=== PATIENT | female | born 1950 | race Caucasian/White ===

== ENCOUNTER 2023-05-09 06:18 | Emergency (ER) | payer MEDICARE, BC, SELFPAY ==
--- NOTE | ~2023-05-09 | CT_ITS ---
EXAMINATION: CT brain wo con INDICATION: Head injury COMPARISON: None TECHNIQUE: Standard unenhanced head CT. The dose-length product (DLP) was 605.33 mGy-cm. The mA was a djusted according to patient size. Iterative reconstruction technique was employed. FINDINGS: No acute intraparenchymal hemorrhage. No evidence of mass lesion. No evidence of acute infa rction. 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 There is mild periventricular and subcorti kd hypodensity probably related to small vessel ischemic disease. There is mild prominence of the campbell lci and ventricles related to cerebral atrophy. Intracranial calcified cerebral atherosclerosis is no fernando. No extra-axial collections. No mass effect or midline shift. There is left periorbital soft tiss ue swelling. The visualized sinuses and mastoid air cells are well aerated. IMPRESSION: 1. No acute intracranial abnormality. 2. Age related findings. Reviewed, dictated and finalized at location F.
--- NOTE | ~2023-05-09 | CT_ITS ---
EXAMINATION: CT facial bones wo con DATE: 05/09/2023 07:45 INDICATION: Facial pain and swelling after fall TECHNIQUE: Computed tomography (CT) of the facial bones and maxillofacial region was performed withou t intravenous contrast. The dose-length product (DLP) was 602.12 mGy-cm. Automated exposure control a nd iterative reconstruction technique were employed. COMPARISON: None. FINDINGS: There is left periorbital soft tissue swelling. There is also right lateral facial soft tis raeann swelling overlying the maxilla and mandible. No facial fracture is identified. The visualized por tions of the cervical spine demonstrate mild spondylosis. IMPRESSION: 1. Left periorbital and right facial soft tissue swelling without acute osseous abnormality. Reviewed, dictated and finalized at location F.
--- NOTE | ~2023-05-09 | XR_ITS ---
EXAMINATION: XR wrist RT min 3V INDICATION: Right wrist pain, initial encounter TECHNIQUE: Four views of the right wrist are obtained. COMPARISON: None available FINDINGS: There is an acute, traumatic, closed, transverse fracture of the distal radius. The fractur e appears to be extra-articular. An ulnar styloid avulsion is also noted. No additional fracture is i dentified. There is soft tissue swelling of the wrist. IMPRESSION: 1. Acute fracture of the distal radius. 2. Ulnar styloid avulsion. Reviewed, dictated and finalized at location F.
[2023-05-09 06:23] VITALS: BP 139/78; PULSE 92; RESP 22; TEMP 36.8; O2SAT 93
[2023-05-09 07:16] VITALS: BP 165/91; PULSE 94; RESP 18; O2SAT 95
--- NOTE | 2023-05-09 07:36 | PC.NURSE ---
pt to xray via stretcher at this time
--- NOTE | 2023-05-09 07:58 | ED.FALL ---
HPI - Fall General Chief Complaint: Fall Stated Complaint: fall, R wrist pain Time Seen by Provider: 05/09/23 07:05 Source: patient and RN notes reviewed Mode of arrival: ambulatory Limitations: no limitations History of Present Illness HPI Narrative: This is a 72 year old female right hand dominant who presents for evaluation of right wrist pain s/p fall. Patient states she was trying to get back into bed using her walker this morning. She reports the wheels on the walk slipped causing her to fall. She hit right side of face on her walker chair. She notices mild pain and right facial swelling. She denies LOC. She also reports right wrist pain and swelling since her fall. she has not taken anything for pain. She denies denies taking anticoagulation. She denies any other complaints or injuries. Related Data Allergies Allergy/AdvReac Type Severity Reaction Status Date / Time No Known Allergies Allergy Mild Verified 05/09/23 07:16 Review of Systems Constitutional: Constitutional: Denies weakness Cardiovascular: Cardiovascular: Denies syncope, Denies rapid heart rate, Denies irregular heart rhythm, Denies leg edema and Denies dyspnea Respiratory: Respiratory: Denies chest congestion, Denies hemoptysis, Denies excessive phlegm production and Denies dyspnea Gastrointestinal: Gastrointestinal: Denies abdominal pain, Denies hematochezia, Denies diarrhea and Denies vomiting Genitourinary: Genitourinary: Denies hematuria and Denies dysuria Musculoskeletal: Musculoskeletal: Reports arthralgias, Reports joint swelling, Denies loss of height and Denies muscle weakness Neurologic: Denies syncope, Denies focal weakness and Denies weakness PMFSH Past Medical History Medical History (Updated 05/09/23 @ 08:33 by Emerald Holguin MD) Emphysema/COPD Hyperlipidemia Surgical History Surgical History (Updated 05/09/23 @ 08:29 by Emerald Holguin MD) H/O section Social History Social History (Updated 05/09/23 @ 08:29 by Emerald Holguin MD) Smoking status: Former smoker Exam Const: General: no acute distress and alert Nutritional Appearance: well nourished Orientation/consciousness: patient oriented x3 HENMT: Head: normal to inspection Mouth: Yes lip normal and Yes moist mucous membranes Throat: posterior oropharynx normal and uvula midline Other: right facial cheek swelling Eyes: Pupils: Equal, round and reactive pupils present EOM: EOMs intact bilaterally Neck: Neck: normal visual inspection and no lymphadenopathy Chest: Chest palpation & inspection: normal inspection of the chest Resp: Effort & Inspection: normal respiratory effort Auscultation: clear to auscultation bilaterally Cardio: Rate: regular rate Rhythm: regular rhythm Heart sounds: no murmurs Skin: Rashes: no rashes Wounds: no wounds Neuro: General: patient oriented x3, moves all extremities and CN's II-XI intact bilaterally Extrem: Other: right wrist swelling, TTP, focal area of bruising Psych: Mental Status: mental status grossly normal Affect: normal affect Attitude: cooperative Course Reevaluation(s) Reevaluation #1: I Discussed with patient that she was found to have radius fracture. I Discussed plan to place in OCL and refer to orthopedic surgery. I will also prescribe pain medication. She understands she will need to call tomorrow to make an appointment Date: 05/09/23 Time: 08:31 Vital Signs Vital signs: Vital Signs Temperature 98.2 F 05/09/23 06:23 Pulse Rate 92 05/09/23 06:23 Respiratory Rate 22 H 05/09/23 06:23 Blood Pressure 139/78 05/09/23 06:23 Pulse Oximetry 93 05/09/23 06:23 Oxygen Delivery Room Air 05/09/23 06:23 Temperature 98.2 F 05/09/23 06:23 Pulse Rate 90 05/09/23 08:56 Respiratory Rate 18 05/09/23 08:56 Blood Pressure 158/100 H 05/09/23 08:56 Pulse Oximetry 95 05/09/23 08:56 Oxygen Delivery Room Air 05/09/23 06:23 Procedures Orthop
[2023-05-09 08:56] VITALS: BP 158/100; PULSE 90; RESP 18; O2SAT 95
== END 2023-05-09 09:12 | disposition home or self-care (01) ==
PROVIDERS: Emergency Provider General Practice; PCP Nurse Practitioner Family
DX: S52.551A Other extraarticular fracture of lower end of right radius, initial encounter for closed fracture (principal); S52.611A Displaced fracture of right ulna styloid process, initial encounter for closed fracture; S00.83XA Contusion of other part of head, initial encounter; J43.9 Emphysema, unspecified; E78.5 Hyperlipidemia, unspecified; Z87.891 Personal history of nicotine dependence; W18.39XA Other fall on same level, initial encounter
CPT/HCPCS: 29125; 70450; 70486; 73110; 99284

== ENCOUNTER 2023-07-04 13:02 | Emergency (ER) | payer MEDICARE, BC, SELFPAY ==
--- NOTE | 2023-07-04 13:06 | ED.URI ---
HPI - URI/Sore Throat General Chief Complaint: Upper Respiratory Infection Stated Complaint: exposure to COVID,cough Time Seen by Provider: 07/04/23 13:05 Source: patient Mode of arrival: ambulatory Limitations: no limitations History of Present Illness HPI Narrative: Gaby is a 73-year-old female patient presenting to clinic today with complaints of a cough, fatigue, runny nose, and nasal congestion x4 days. She reports has been exposed to COVID. No fever or chills. Does have history of COPD. Does not report any increased shortness of breath or chest pain. MD elicited complaint: cough and nasal congestion Related Data Home Medications Medication Instructions Recorded Confirmed atorvastatin 10 mg tablet 10 mg PO DAILY 05/12/23 06/10/23 herbal drugs tablet PO 05/12/23 06/10/23 potassium chloride 10 mEq 10 meq PO DAILY 05/12/23 06/10/23 capsule,extended release albuterol sulfate 2.5 mg/3 mL 2.5 mg inhalation Q4H PRN 07/04/23 07/04/23 (0.083 %) solution for nebulization Shortness Of Breath Or Wheezing fluticasone fur. 100 mcg-umeclid inhalation 07/04/23 62.5 mcg-vilant 25 mcg inhalat.powder (Trelegy Ellipta) furosemide 40 mg tablet mg 07/04/23 loratadine 10 mg tablet mg 07/04/23 montelukast 10 mg tablet mg 07/04/23 Allergies Allergy/AdvReac Type Severity Reaction Status Date / Time No Known Allergies Allergy Mild Verified 07/04/23 13:13 Review of Systems Review of Systems: Pertinent positives per HPI. Patient denies any fever, chills, rash, headache, visual changes, dizziness, chest pain, palpitations, nausea, vomiting, diarrhea, constipation, abdominal pain, or any urinary issues. [facility] Past Medical History Medical History Colles' fracture of right radius (~05/09/23) Emphysema/COPD Hyperlipidemia Lung cancer (~05/2017) Surgical History Surgical History H/O section Social History Social History Smoking status: Former smoker Alcohol intake: never Substance use: never Substance use type: does not use Lack of Transportation: No Lack of Food: Never True Current Housing: I Have Housing Concerned About Future Housing: No Difficulty Paying Gas/Electric Bills: No Difficulty Paying for Meds: No Currently Unemployed: No Education: High School Diploma/GED Difficulty w/ Childcare or Family Care: No Comments At the time of my signature, I reviewed and agree with the nursing past medical, surgical, social, and family history. There is no relevant family history pertinent to the patient complaint. Exam Narrative: General: Well-developed, well nourished, in no apparent distress Head: Normocephalic, atraumatic Eyes: Pupils equally round and reactive to light bilaterally, EOM intact, sclera and conjunctive clear, no discharge, lids normal Ears: TMs intact and clear, ear canals clear, no drainage, grossly hearing normal. Nose: Nares patent, clear nasal discharge, no inflammation, no sinus tenderness. Mouth: Oral pharynx without lesions or masses, good dentition, MMM. Does Neck: Supple, trachea midline, no enlargement of anterior or posterior cervical nodes, no thyroid masses or goiter palpable. Cardio: Regular rate and rhythm, s1 and s2 normal, no murmur appreciated. Resp: Expiratory wheezing throughout lung, no rhonchi, rales, or rubs Course Course Emergency Course: Portions of this record may have been created with voice recognition software. Level of Care: Express Care Visit Vital Signs Vital signs: Vital signs reviewed MDM - URI/Sore Throat MDM Narrative Medical decision making narrative: At the time of visit patient is resting comfortably on the exam table. Patient is nontoxic appearing. COVID and influenza testing was performed. COVID testing was positive and
[2023-07-04 13:10] VITALS: BP 148/80; PULSE 96; RESP 24; TEMP 36.9; O2SAT 93
== END 2023-07-04 13:48 | disposition home or self-care (01) ==
PROVIDERS: Emergency Provider Nurse Practitioner Family; PCP Nurse Practitioner Family
DX: U07.1 COVID-19 (principal); Z87.891 Personal history of nicotine dependence; J44.9 Chronic obstructive pulmonary disease, unspecified; E78.5 Hyperlipidemia, unspecified; Z85.118 Personal history of other malignant neoplasm of bronchus and lung
CPT/HCPCS: 87426; 87804; 99213; C9803; G0463

== ENCOUNTER 2024-07-30 12:09 | Inpatient (IN) | payer MEDICARE, BC, SELFPAY ==
[2024-07-30] VITALS (62 sets, daily range): BP systolic 115–170; BP diastolic 67–123; PULSE 91–137; RESP 16–37; TEMP 36.3; O2SAT 92–100
--- NOTE | ~2024-07-30 | XR_ITS ---
Portable chest x-ray Comparison: 08/05/2024 Clinical History: Respiratory Findings: Endotracheal tube and NG tube and right-sided central venous line are in place. There is p robable central congestive change and vascular prominence of the hilar structures, unchanged. There i s left basilar atelectasis or pneumonia. Cardiomediastinal silhouette is stable. Bones and soft tiss ues are unremarkable. Impression: Left basilar atelectasis versus pneumonia. Stable prominent hilar structures. Stable support tubes. Reviewed, dictated and finalized at location M. LFISH SORTER Impression: Left basilar atelectasis versus pneumonia. Stable prominent hilar structures. Stable support tubes.
--- NOTE | ~2024-07-30 | XR_ITS ---
EXAMINATION: XR chest ET placement DATE: 07/31/2024 02:54 INDICATION: Intubation. TECHNIQUE: A single frontal view of the chest was obtained. COMPARISON: Chest CT 07/30/2024, chest single view 07/31/2024 FINDINGS: There is volume loss of right hemithorax. There are airspace opacities in the right perihil ar region and right upper lobe. There are airspace opacities in the lower lung zones. No pleural effu jess or pneumothorax. The heart size is normal. The endotracheal tube tip is 4.1 cm above the vera. The nasogastric tube tip is beyond the inferior margin of the radiograph, but at least to the stomac h. IMPRESSION: 1. Several airspace opacities in right perihilar region and right upper lobe, likely radiation pneumo nitis. 2. Stable airspace opacities in the lower lung zones, likely atelectasis. Reviewed, dictated and finalized at location A. OR DATA DEVELOPER IMPRESSION: 1. Several airspace opacities in right perihilar region and right upper lobe, l ikely radiation pneumonitis. 2. Stable airspace opacities in the lower lung zones, likely atelectasis.
--- NOTE | ~2024-07-30 | XR_ITS ---
Portable chest x-ray Comparison: 08/09/2024 Clinical History: Respiratory failure Findings: Endotracheal tube, NG tube, and right IJ line remain in place. Stable prominence of the hi lar regions, especially right side. Left basilar airspace disease unchanged. Cardiomediastinal silho uette is stable. Bones and soft tissues are unremarkable. Impression: No interval change. There is stable left basilar atelectasis or pneumonia. Stable prominence of the hilar regions. Correlate for pulmonary vascular structures versus lymphadeno niecy. Stable support tubes. Reviewed, dictated and finalized at location . RETE PIPE MAKER Impression: No interval change. There is stable left basilar atelectasis or pneumonia. Stable prominence of the hilar regions. Correlate for pulmonary vascular struct ures versus lymphadenopathy. Stable support tubes.
--- NOTE | ~2024-07-30 | XR_ITS ---
EXAMINATION: XR chest 1V portable DATE: 08/04/2024 06:24 INDICATION: Hypercapnic respiratory failure. TECHNIQUE: A single frontal view of the chest was obtained. COMPARISON: None. FINDINGS: There is volume loss of right hemithorax. There are airspace opacities in right perihilar r egion and right upper lung zone. There are mild airspace opacities in the lower lung zones. No pleura l effusion or pneumothorax. Cardiomegaly is noted. The endotracheal tube tip is 3.4 cm above the matrha na. The nasogastric tube tip is beyond the inferior margin of the radiograph, but at least to the sto mach. A right internal jugular central venous catheter is seen with tip in the proximal right atrium. IMPRESSION: 1. Stable airspace opacities in right perihilar region and right upper lobe, likely radiation pneumonitis. 2. Stable airspace opacities in the lower lung zones, consistent with atelectasis versus pneumonia. 3. Cardiomegaly. Reviewed, dictated and finalized at location A. ER AND TRIMMER IMPRESSION: 1. Stable airspace opacities in right perihilar region and right upper lobe, li aman radiation pneumonitis. 2. Stable airspace opacities in the lower lung zones, consistent with atelectas is versus pneumonia. 3. Cardiomegaly.
--- NOTE | ~2024-07-30 | XR_ITS ---
XR chest ET placement DATE: 07/30/2024 18:46 INDICATION: Intubation TECHNIQUE: Portable supine AP chest on 07/30/2024 at 1836 hours COMPARISON: 07/30/2024 CT chest 07/30/2024 portable AP chest FINDINGS: There is interval placement of an endotracheal tube, the distal tip is situated at the very proximal aspect of the right mainstem bronchus. Recommend withdrawing the ET tube 3 cm. NG tube in stomach. Right lung volume loss with rightward shift of heart mediastinum. There is infiltrate and/or atelectasis in the right upper and lower lung hernandez, particularly mediall y. There is prominent leg atelectasis or scarring in the left lower lung. Cardiomegaly. Pulmonary vascular congestion and pulmonary interstitial prominence suggests congestive changes. Aortic atherosclerosis. Osteopenia. IMPRESSION: 2 tip is situated at the origin of the right mainstem right; repositioning 3 cm is proxim ally is recommended Reviewed, dictated and finalized at Location A. Reviewed, dictated and finalized at location A. N DRIER IMPRESSION: 2 tip is situated at the origin of the right mainstem right; reposi tioning 3 cm is proximally is recommended
--- NOTE | ~2024-07-30 | US_ITS ---
EXAMINATION: US abdomen limited DATE: 08/05/2024 11:45 INDICATION: Elevated liver function tests. TECHNIQUE: Multiple grayscale and Doppler ultrasound images of the abdomen were obtained. COMPARISON: None FINDINGS: The pancreatic head and body are normal in appearance. The pancreatic tail is not visualized. Liver has normal echogenicity and contour, with a smooth surface. No liver lesion identified. No intrahepat ic biliary duct dilation suspected. Portal venous flow was seen in the hepatopetal, normal direction and has normal Doppler waveform. There are echogenic and shadowing gallstones in the dependent aspect of the otherwise normal-appearing gallbladder. Sonographic Dunne sign was unable to be assessed as patient is currently intubated and sedated. No gallbladder dilation, wall thickening or pericholecyst ic fluid to suggest acute cholecystitis. Common bile duct measures 4 mm diameter which is normal. Vis ualized proximal inferior vena cava is normal. Visualized portion of the right kidney demonstrates no rmal contour and echogenicity with no hydronephrosis. IMPRESSION: 1. Cholelithiasis within the otherwise normal-appearing gallbladder. Reviewed, dictated and finalized at location A. OVISUAL EQUIPMENT OPERATOR
--- NOTE | ~2024-07-30 | XR_ITS ---
CHEST RADIOGRAPH CLINICAL HISTORY: Central line insertion . COMPARISON: 08/02/2024 at 3:30 AM and dating back to 07/31/2024. TECHNIQUE: Single portable view of the chest. FINDINGS Interval placement of a right internal jugular central venous catheter with its tip projecting over t he superior right atrium. Endotracheal tube redemonstrated with its tip projecting approximately 3 cm above the base of the car dimitri. Orogastric tube extending below the left hemidiaphragm, presumably within stomach. The remainder of the cardiomediastinal silhouette is otherwise unremarkable. Persistent left basilar atelectasis. Redemonstration of right hilar and right upper lobe asymmetry, unchanged from prior. The remainder of the lungs are clear. IMPRESSION: Right internal jugular central venous catheter in good position and ready for immediate use. Otherwise stable radiographic evaluation of the chest, with redemonstration of supportive devices (in good radiographic position) and post treatment change within the right upper lobe and right hilum. Reviewed, dictated and finalized at location A. DENT CARE DIRECTOR IMPRESSION: Right internal jugular central venous catheter in good position and ready for i mmediate use. Otherwise stable radiographic evaluation of the chest, with redemonstration of supportive devices (in good radiographic position) and post treatment change wi thin the right upper lobe and right hilum.
--- NOTE | ~2024-07-30 | XR_ITS ---
XR chest ET placement DATE: 07/30/2024 20:38 INDICATION: Reposition ET tube TECHNIQUE: Portable AP chest on 07/30/2024 at 2037 hours COMPARISON: None FINDINGS: Tip of ET tube is 2.5 cm above vera in satisfactory position. NG tube in stomach. Right lung volume loss, prominent infiltrate, atelectasis or scarring along the right upper and lower lung. Prominent discoid atelectasis and suggestion of some infiltrate in the left lower lung. Cardiomegaly. No pneumothorax. Osteopenia. IMPRESSION: Repositioning of ET tube in satisfactory position Reviewed, dictated and finalized at Location A. Reviewed, dictated and finalized at location A. 400 DEVELOPER
--- NOTE | ~2024-07-30 | XR_ITS ---
XR abdomen gastric tube insert DATE: 07/30/2024 18:46 INDICATION: NG tube placement TECHNIQUE: Portable AP view on 07/30/2024 1837 hours COMPARISON: None FINDINGS: NG tube overlies the gastric antrum approximately. Bilateral renal excretion of contrast material. A Torres catheter is present within the evacuated urin lucio bladder. Nonspecific bowel gas pattern. IMPRESSION: NG tube is in the gastric antrum approximately Reviewed, dictated and finalized at Location A. Reviewed, dictated and finalized at location A. MACEUTICAL PLANT OPERATOR
--- NOTE | ~2024-07-30 | XR_ITS ---
EXAMINATION: XR chest 1V portable DATE: 08/01/2024 05:29 INDICATION: Hypercapnic respiratory failure. TECHNIQUE: A single frontal view of the chest was obtained. COMPARISON: Chest single view 07/31/2024 FINDINGS: There is volume loss of right hemithorax. There are airspace opacities in right perihilar r egion and right upper lung zone. There are mild airspace opacities in the lower lung zones. No pleura l effusion or pneumothorax. The heart size is normal. The endotracheal tube tip is 3.7 cm above the c jose. The nasogastric tube tip is beyond the inferior margin of the radiograph, but at least to the stomach. IMPRESSION: 1. Stable airspace opacities in right perihilar region and right upper lobe, likely radiation pneumon itis. 2. Stable mild airspace opacities in the lower lung zones, likely atelectasis. Reviewed, dictated and finalized at location A. PACKAGING IMPRESSION: 1. Stable airspace opacities in right perihilar region and right upper lobe, li aman radiation pneumonitis. 2. Stable mild airspace opacities in the lower lung zones, likely atelectasis.
--- NOTE | ~2024-07-30 | US_ITS ---
EXAMINATION: US venous doppler [facility] DATE: 08/07/2024 14:34 INDICATION: Fever. TECHNIQUE: Grayscale ultrasound images without and with compression and Doppler ultrasound images of the bilateral lower extremity veins were obtained. COMPARISON: Ultrasound 01/02/2009 FINDINGS: The visualized portions of right common femoral vein, profunda (deep) femoral vein, femoral vein, pop liteal vein, peroneal veins, posterior tibial veins, and greater saphenous vein outflow are patent. The visualized portions of left common femoral vein, profunda femoral vein, femoral vein, popliteal v ein, peroneal veins, posterior tibial veins, and greater saphenous vein outflow are patent. IMPRESSION: 1. No deep venous thrombosis. Reviewed, dictated and finalized at location A. HER
--- NOTE | ~2024-07-30 | XR_ITS ---
EXAMINATION: XR chest 1V portable DATE: 07/31/2024 05:58 INDICATION: Respiratory failure. TECHNIQUE: A single frontal view of the chest was obtained. COMPARISON: Chest single view at 2:48 AM FINDINGS: There is volume loss of right hemithorax. There are airspace opacities in right perihilar r egion and right upper lung zone. There are mild airspace opacities in the lower lung zones. No pleura l effusion or pneumothorax. The heart size is normal. The endotracheal tube tip is 3.1 cm above the c jose. The nasogastric tube tip is beyond the inferior margin of the radiograph, but at least to the stomach. IMPRESSION: 1. Stable airspace opacities in right perihilar region and right upper lobe, likely radiation pneumon itis. 2. Stable mild airspace opacities in the lower lung zones, likely atelectasis. Reviewed, dictated and finalized at location A. CHECKER IMPRESSION: 1. Stable airspace opacities in right perihilar region and right upper lobe, li aman radiation pneumonitis. 2. Stable mild airspace opacities in the lower lung zones, likely atelectasis.
--- NOTE | ~2024-07-30 | US_ITS ---
EXAMINATION: US venous doppler UE DATE: 08/04/2024 10:36 INDICATION: Upper limb swelling TECHNIQUE: Grayscale images without and with compression and Doppler images of the bilateral upper ex tremity veins were obtained. COMPARISON: None. FINDINGS: The right subclavian vein, axillary vein, brachial vein, basilic vein, cephalic vein, radial vein, an d ulnar vein are patent. The left internal jugular vein, subclavian vein, axillary vein, brachial vein, basilic vein, cephalic vein, radial vein, and ulnar vein are patent. IMPRESSION: 1. Patent bilateral upper extremity veins. No evidence of venous thrombosis. Reviewed, dictated and finalized at location B. L ROOM DENTAL TECHNICIAN
--- NOTE | ~2024-07-30 | CT_ITS ---
EXAMINATION: CTA chest PE protocol DATE: 07/30/2024 15:40 INDICATION: Dyspnea TECHNIQUE: Computed tomography angiography (CTA) of the chest was performed with 100 mL Omnipaque-350 intravenous contrast timed to evaluate the pulmonary arteries. Coronal maximum intensity projection 3D-reconstructions were created by the technologist. Automated exposure control and iterative reconst ruction technique were employed. Exam dose: 887.54 mGy-cm total exam DLP. COMPARISON: 04/28/2017 CT chest FINDINGS: There is diagnostic contrast enhancement of the pulmonary arteries and no evidence of pulmo nary embolism. There is prominent right lung volume loss including right upper lobe atelectasis, minimal right upper lobe vascularity, prominent right lower lobe atelectasis. There is limited expansion of the right janet ng. There is prominent narrowing of the right upper lobe bronchus, virtual occlusion of the right int ermediate bronchus. There is mild right pleural effusion. Cardiomegaly. No pericardial effusion. There is thoracic aortic calcification and mild thoracic aortic aneurysm, measuring up to approximate ly 3.3 cm diameter in the posterior aortic arch area. Scattered mild pulmonary infiltrates and/atelectasis involving left upper lobe and to a greater exten t left lower lobe. Normal morphology of the adrenal glands. Included upper abdominal structures are unremarkable. No suspicious osteolytic or osteoblastic lesions are noted. IMPRESSION: Right lung atelectasis including particularly upper and lower lobes; which may be due to malignant or radiation stricture of the right bronchial airways. Consider PET/CT correlation No pulmonary embolism Reviewed, dictated and finalized at Location A. Reviewed, dictated and finalized at location A. E HALL HOST/HOSTESS IMPRESSION: Right lung atelectasis including particularly upper and lower lobe s; which may be due to malignant or radiation stricture of the right bronchial airways. Consider PET/CT correlation No pulmonary embolism
--- NOTE | ~2024-07-30 | XR_ITS ---
EXAMINATION: XR chest 1V portable DATE: 07/30/2024 12:41 INDICATION: Dyspnea. TECHNIQUE: A single frontal view of the chest was obtained. COMPARISON: Chest 2 views 01/29/2017, chest CT 04/28/17 FINDINGS: There is volume loss of right hemithorax. There is a mass at the right hilum. There are air space opacities in right upper lobe. There are airspace opacities in left mid and lower lung zones. N o pleural effusion or pneumothorax. The heart size is normal. IMPRESSION: 1. Mass at the right hilum, consistent with malignancy and/or treatment changes. 2. Volume loss of right hemithorax with airspace opacities in right upper lobe, likely atelectasis. P neumonia cannot be excluded. 3. Airspace opacities in left mid and lower lung zones, consistent with atelectasis versus pneumonia. Reviewed, dictated and finalized at location A. HAND TOOL IMPRESSION: 1. Mass at the right hilum, consistent with malignancy and/or treatment changes . 2. Volume loss of right hemithorax with airspace opacities in right upper lobe, likely atelectasis. Pneumonia cannot be excluded. 3. Airspace opacities in left mid and lower lung zones, consistent with atelect asis versus pneumonia.
--- NOTE | ~2024-07-30 | XR_ITS ---
EXAMINATION: XR chest 1V portable DATE: 08/09/2024 06:23 INDICATION: Respiratory failure. Pneumonia. TECHNIQUE: frontal view of the chest was obtained. COMPARISON: Chest radiograph dated 08/08/[address] dated 08/04/2024 FINDINGS: Endotracheal tube tip 3.4 cm above the vera. Right internal jugular central venous catheter with di stal tip at the superior cavoatrial junction. Nasogastric tube extends below the left hemidiaphragm with distal tip collimated off the study. Volume loss in the right hemithorax with right perihilar and paramediastinal opacities consistent wit h atelectasis, bronchiectasis and likely radiation fibrosis based on prior CT. Additional opacities a t the bilateral lower lung zones which could represent atelectasis or pneumonia. Small right pleural effusion. No pneumothorax or left-sided pleural effusion. Mild cardiomegaly. IMPRESSION: 1. Opacities at the bilateral lower lung zones which could represent atelectasis or pneumonia along w ith a small right pleural effusion. 2. Volume loss in right hemithorax with paramediastinal/perihilar opacities consistent with radiation fibrosis and atelectasis likely for treatment of prior lung cancer. Reviewed, dictated and finalized at location A. RULER OPERATOR IMPRESSION: 1. Opacities at the bilateral lower lung zones which could represent atelectasi s or pneumonia along with a small right pleural effusion. 2. Volume loss in right hemithorax with paramediastinal/perihilar opacities con sistent with radiation fibrosis and atelectasis likely for treatment of prior l osei cancer.
--- NOTE | ~2024-07-30 | XR_ITS ---
EXAMINATION: XR chest 1V portable DATE: 08/02/2024 03:33 INDICATION: Hypercapnic respiratory failure. TECHNIQUE: A single frontal view of the chest was obtained. COMPARISON: Chest single view 08/01/2024 FINDINGS: There is volume loss of right hemithorax. There are airspace opacities in right perihilar r egion and right upper lung zone. There are mild airspace opacities in the lower lung zones. No pleura l effusion or pneumothorax. The heart size is normal. The endotracheal tube tip is 3.6 cm above the c jose. The nasogastric tube tip is beyond the inferior margin of the radiograph, but at least to the stomach. IMPRESSION: 1. Stable airspace opacities in right perihilar region and right upper lobe, likely radiation pneumon itis. 2. Stable mild airspace opacities in the lower lung zones, likely atelectasis. Reviewed, dictated and finalized at location A. ER OPERATOR AUTOMATIC IMPRESSION: 1. Stable airspace opacities in right perihilar region and right upper lobe, li aman radiation pneumonitis. 2. Stable mild airspace opacities in the lower lung zones, likely atelectasis.
--- NOTE | ~2024-07-30 | XR_ITS ---
EXAMINATION: XR chest 1V portable DATE: 08/05/2024 05:40 INDICATION: Hypercapnic respiratory failure TECHNIQUE: frontal view of the chest was obtained. COMPARISON: Chest radiograph and CT dated 08/04/2024 FINDINGS: Endotracheal tube tip 1.2 cm above the vera. Nasogastric tube extends below the left hemidiaphragm with distal tip collimated off the study. Right internal jugular central venous catheter with distal tip at the high right atrium. Unchanged small right pleural effusion and opacities in the bilateral lower lung zones which could re present atelectasis or pneumonia. Perihilar and paramediastinal opacities in the right mid and upper lung zones corresponding to radiation fibrosis. No pneumothorax or left-sided pleural effusion Mild c ardiomegaly. IMPRESSION: 1. Persistent right parahilar and right upper lobe paramediastinal opacities consistent with radiatio n fibrosis. 2. Unchanged small right pleural effusion with bibasilar opacities which could represent atelectasis or pneumonia. 2. Cardiomegaly. Reviewed, dictated and finalized at location A. ENDOSCOPY IMPRESSION: 1. Persistent right parahilar and right upper lobe paramediastinal opacities co nsistent with radiation fibrosis. 2. Unchanged small right pleural effusion with bibasilar opacities which could represent atelectasis or pneumonia. 2. Cardiomegaly.
--- NOTE | ~2024-07-30 | XR_ITS ---
EXAMINATION: XR abdomen/kub 1V DATE: 07/30/2024 22:58 INDICATION: Abdominal distention. TECHNIQUE: A supine view of the abdomen on 2 radiographs was obtained. COMPARISON: Chest CT 07/30/2024 FINDINGS: There are no dilated loops of bowel. There is a small volume of stool in the colon. The olman ogastric tube tip is in the stomach. IMPRESSION: 1. Nonobstructive bowel gas pattern. Reviewed, dictated and finalized at location A. SAW OPERATOR HELPER
--- NOTE | ~2024-07-30 | CT_ITS ---
EXAMINATION:CT diagnostic chest wo con DATE: 08/04/2024 11:38 INDICATION: Right lung lower lobe collapse. TECHNIQUE: Computed tomography (CT) of the chest was performed without intravenous contrast. Automate d exposure control and iterative reconstruction technique were employed. The dose-length product (DLP ) was 694.67 mGy-cm. COMPARISON: Chest CT 07/30/2024, PET/CT 05/11/2017 FINDINGS: There is mild emphysema. There is bilateral atelectasis with a dependent predominance. Ther e are airspace opacities in right upper lobe with volume loss and varicose bronchiectasis. There is c omplete collapse of right middle lobe. Tracheobronchomalacia is noted. There are mild groundglass opa cities in the lower lobes. There are small pleural effusions. Cardiomegaly is noted. There are grewal ry artery calcifications. No pericardial effusion. The central pulmonary arteries are enlarged, consi stent with pulmonary arterial hypertension. The nasogastric tube tip is beyond the inferior margin of the radiograph, but at least to the stomach. The endotracheal tube tip is in the trachea above the c jose. There is mild thoracic spondylosis. IMPRESSION: 1. Mild groundglass opacities in the lower lobes, consistent with pneumonia. 2. Airspace opacities in right upper lobe with volume loss and varicose bronchiectasis, likely radiat ion pneumonitis. Persistent complete collapse of right middle lobe. 3. Tracheobronchomalacia. 4. Small pleural effusions. 5. Mild emphysema. Reviewed, dictated and finalized at location A. ER OPERATOR IMPRESSION: 1. Mild groundglass opacities in the lower lobes, consistent with pneumonia. 2. Airspace opacities in right upper lobe with volume loss and varicose bronchi ectasis, likely radiation pneumonitis. Persistent complete collapse of right mi ddle lobe. 3. Tracheobronchomalacia. 4. Small pleural effusions. 5. Mild emphysema.
--- NOTE | ~2024-07-30 | XR_ITS ---
EXAMINATION: XR chest 1V portable Exam Date/Time: 07/31/2024 22:30 BILL CLERK HISTORY: High Peak Pressure, check tube placement Comparison: Same date at 5:20 AM. RESULT: Lines, tubes, and devices: Subdiaphragmatic NG tube. Endotracheal tube terminating 3.2 cm above the vera. Lungs and pleura: Right hemithorax volume loss. Stable right upper lobe and right perihilar opacities . Streaky opacities in the left lower lung. Right hemidiaphragm tenting Cardiomediastinal silhouette: Stable. Other: No acute osseous or upper abdominal finding. IMPRESSION: Endotracheal tube remains in stable position. Stable pulmonary opacities. Reviewed, dictated and finalized at location K. CLERK
--- NOTE | ~2024-07-30 | XR_ITS ---
EXAMINATION: XR chest 1V portable DATE: 08/03/2024 06:13 INDICATION: Hypercapnic respiratory failure. TECHNIQUE: A single frontal view of the chest was obtained. COMPARISON: Chest single view 08/02/2024 FINDINGS: There is volume loss of right hemithorax. There are airspace opacities in right perihilar r egion and right upper lung zone. There are mild airspace opacities in the lower lung zones. No pleura l effusion or pneumothorax. Cardiomegaly is noted. The endotracheal tube tip is 4.3 cm above the martha na. The nasogastric tube tip is beyond the inferior margin of the radiograph, but at least to the sto mach. A right internal jugular central venous catheter is seen with tip in the proximal right atrium. IMPRESSION: 1. Stable airspace opacities in right perihilar region and right upper lobe, likely radiation pneumon itis. 2. Airspace opacities in the lower lung zones with worsening on the left, consistent with atelectasis versus pneumonia. 3. Cardiomegaly. Reviewed, dictated and finalized at location A. TRUCTION EQUIPMENT OVERHAULER IMPRESSION: 1. Stable airspace opacities in right perihilar region and right upper lobe, li aman radiation pneumonitis. 2. Airspace opacities in the lower lung zones with worsening on the left, consi stent with atelectasis versus pneumonia. 3. Cardiomegaly.
--- NOTE | 2024-07-30 12:11 | ECG_ITS ---
Test Date: 2024-07-30 12:25:32 Measurements Intervals [place] Rate: 128 P: 52 TX: 141 QRS: -32 QRSD: 136 T: 53 QT: 399 QTc: 583 Interpretive Statements SINUS TACHYCARDIA or atrial flutter WITH OCCASIONAL VENTRICULAR PREMATURE COMPLEXES INDETERMINATE AXIS RIGHT BUNDLE BRANCH BLOCK [120+ ms QRS DURATION, UPRIGHT V1, 40+ ms S IN I/aVL/V4/V5/V6] MODERATE T-WAVE ABNORMALITY, CONSIDER ANTEROLATERAL ISCHEMIA [-0.1+ mV T WAVE IN V3-V6] MODERATE T-WAVE ABNORMALITY, CONSIDER INFERIOR ISCHEMIA [-0.1+ mV T WAVE IN II/aVF] No previous ECG available for comparison Electronically Signed On 07-30-2024 13:11:30 [facility] CAREGIVER by Rogers Shepherd M.D.
[2024-07-30] MEDS: IPRATROPIUM BR 0.02% INH SOLN 0.5 MG/2.5 ML VIAL 1 MG INHALATION (12:15)
[2024-07-30] MEDS: ALBUTEROL SULFATE NEB 2.5 MG/3 ML INH 10 MG INHALATION (12:15)
[2024-07-30] MEDS: MAGNESIUM SULF 2 GM/WATER 50ML 2 GM/50 ML BAG IVPB (12:20)
[2024-07-30 12:21] LABS: Alveolar/Arterial O2 Gradient 535.9 mmHg; Base Excess ABG 0.7 mEq/l (+/-2.0); Carboxyhemoglobin 1.1 % THb (0-2.0); Fractional Inspired Oxygen 100 %; HCO3 ABG 31.1 mEq/l (22.0-26.0); Methemoglobin ABG 0.3 %THb (0-1.5); Oxyhemoglobin 95.2 % THb (90.0-100.0); PO2 ABG 99.2 mmHg (80.0-100.0); PO2 FiO2 Ratio Arterial Blood 0.99 %; Reduced Hemoglobin 3.4 %THb (0-5.0); Total Hemoglobin 15.6 g/dL (12.0-18.0)
[2024-07-30 12:23] LABS: Device BIPAP; Expiratory Pressure 6 cmH2O; Inspiratory Pressure 14 cmH2O; Modified Allen's Test Pass; PCO2 ABG 77.9 mmHg (35.0-45.0); Site Drawn RIGHT RADIAL; pH ABG 7.219 (7.350-7.450)
[2024-07-30] MEDS: EPINEPHrine HCL INJ 1 MG/ML AMPUL 0.3 MG IM (12:24)
[2024-07-30] MEDS: LACTATED RINGERS 1,000 ML 999 ML IV CONT (12:28)
[2024-07-30 12:36] LABS: Hemoglobin 14.7 g/dL (12.0-15.0); Mean Corpuscular Hemoglobin 31.1 pg (26-34); Mean Corpuscular Volume 97.5 fl (80-100); Mean Platelet Volume 10.6 fl (7.4-10.4); Platelet Count Result 338 k/mm3 (150-375); Red Blood Count 4.72 M/mm3 (4.2-5.4); Red Cell Distribution Width 13.3 % (11.5-14.5); White Blood Count 15.5 K/mm3 (4.5-10.0)
--- NOTE | 2024-07-30 12:38 | ED.SOB ---
HPI - SOB/Dyspnea General Chief Complaint: Shortness of Breath/Dyspnea Stated Complaint: dyspnea Time Seen by Provider: 07/30/24 12:18 History of Present Illness HPI Narrative: 74-year-old female past medical history including hyperlipidemia and COPD. Patient presents to the emergency department in severe respiratory depression. EMS was called to the household work family member noted that patient was having worsening difficulty breathing over last few days. She was found to be 44% on room air with good waveform, blue and cyanotic in the face but still awake and mentating. They placed her on CPAP and transported to the hospital. She was brought back in room 11 as a medical resuscitation for severe respiratory distress this time. Patient is awake but in distress, dyspneic and unable to provide additional information, does follow commands and seems to know what is going on. She has very diminished air entry bilaterally with scant wheezing, near silent chest. RT called to bedside. Related Data Home Medications ?Medication ?Instructions ?Recorded ?Confirmed ?Last Taken ?Type atorvastatin 10 mg tablet 10 mg PO DAILY 05/12/23 07/30/24 Unknown History herbal drugs tablet PO 05/12/23 07/09/23 Unknown History potassium chloride 10 mEq 10 meq PO DAILY 05/12/23 07/30/24 Unknown History capsule,extended release albuterol sulfate 2.5 mg/3 mL 2.5 mg inhalation Q4H PRN 07/04/23 07/30/24 Unknown History (0.083 %) solution for nebulization Shortness Of Breath Or Wheezing fluticasone fur. 100 mcg-umeclid inhalation 07/04/23 07/09/23 Unknown History 62.5 mcg-vilant 25 mcg inhalat.powder (Trelegy Ellipta) furosemide 40 mg tablet mg 07/04/23 07/09/23 Unknown History loratadine 10 mg tablet mg 07/04/23 07/09/23 Unknown History montelukast 10 mg tablet mg 07/04/23 07/09/23 Unknown History Allergies Allergy/AdvReac Type Severity Reaction Status Date / Time No Known Allergies Allergy Mild Verified 07/30/24 12:30 Review of Systems Review of Systems: As reviewed above in HPI [facility] Past Medical History Medical History Colles' fracture of right radius (~05/09/23) Lung cancer (~05/2017) Emphysema/COPD Hyperlipidemia Surgical History Surgical History H/O section Social History Social History Smoking status: Former smoker Alcohol intake: never Substance use: never Substance use type: does not use Lack of Transportation: No Lack of Food: Never True Current Housing: I Have Housing Concerned About Future Housing: No Difficulty Paying Gas/Electric Bills: No Difficulty Paying for Meds: No Currently Unemployed: No Education: High School Diploma/GED Difficulty w/ Childcare or Family Care: No Exam Narrative: GENERAL: Severe respiratory distress, awake but very dyspneic, tachypneic HEAD: [Normocephalic, atraumatic.] EYES: [PERRLA and EOMI.] ENT: Nares clear, no rhinorrhea or epistaxis. Mucous membranes dry. NECK: Supple. CHEST: Sign and chest, very diminished air entry, scan wheezes are appreciated, tachypnea with accessory muscle use HEART: Tachycardic rate with regular rhythm. No murmur heard. [Normal peripheral pulses.] ABDOMEN: [Soft, nondistended], [nontender], [No rigidity or guarding] EXTREMITIES: Normal range of motion. 1+ edema SKIN: Warm, dry, no rash. NEURO: [No focal deficits]. Is able to nod yes or no and appears awake and able to answer questions albeit with 1 word dyspnea, no focal findings overly. Course Vital Signs Vital signs: Vital Signs Pulse Rate 137 H 07/30/24 12:10 Respiratory Rate 37 H 07/30/24 12:10 Pulse Oximetry 95 07/30/24 12:10 Oxygen Delivery BiPAP 07/30/24 12:10 Temperature 36.3 C L 07/30/24 12:13 Pulse Rate 105 H 07/30/24 21:20 Respiratory Rate 16 07/30/24 21:20 Blood Pressure 162/120 H 07/30/24 20:37 Pulse Oximetry 96 07/30/24 20:37 Oxygen Delivery Mechanical Ventilation 07/30/24 20:51 Fraction of Inspired Oxygen 50 07/30/24 20:51 Procedures Intubation Intubation #1: Intubation Date: 07/30/24 Intubation Time: 19:27 Time out performed: Yes sedative: Etomidate Mg Given: 30 paralytic: Rocuronium Mg Given: 100 Laryngoscope: fiber optic video scope Tube Size (cm): 8.0 Method of Intubation: orotracheal Number of Attempts: 1 Tube Secured Depth (cm): 24 Tube Secured Location: lips Tube Placement Confirmation: visualized tube passing through cords, equal breath sounds bilaterally, no breath sounds over epigastrium and confirmation by capnometry Patient Tolerated Procedure: well and no complications Intubation Complications: none MDM - SOB/Dyspnea MDM Narrative Medical decision making narrative: 74-year-old female with history of COPD and hyperlipidemia presenting in severe respiratory distress. She was found at 44% on room air and cyanotic in the face. She is awake, placed on CPAP by EMS and transition to BiPAP therapy upon arrival to the emergency department. RT was called to bedside for assistance, she was immediately given a intramuscular dose of epinephrine for bronchodilation 0.3 mg. Continuous albuterol and Atrovent were ordered, lung auscultation was severe diminishment in all lung hernandez, tidal volumes in the low 300s on the BiPAP with no air leak. BiPAP settings of 14/6 and 20 rate. Patient is awake but appears in severe distress, is afebrile, blood pressure within range, pulse within the 120s to 130s and tachypnea in the 30s to 40s. Considerations presently are for severe hypoxemic and hypercarbic respiratory failure likely secondary to COPD but other underlying process such as pneumonia, heart failure not excluded. Very unlikely to be ACS but cardiac workup was also initiated with EKGs, chest x-rays, troponins. She was given nebulized albuterol and ipratropium to her BiPAP mask, magnesium sulfate IV, started on antibiotics including Rocephin and doxycycline for COPD exacerbation. ABG obtained which shows critical acidosis with 7.2 pH, pCO2 of 78, bicarb of 31 indicative of acute on chronic hypercapnic respiratory failure without full compensation. Will trial BiPAP therapy and assess need for intubation shortly. Patient was reassessed frequently and had initial improvement on the BiPAP therapy, no longer is tachypneic and breathing were covering the 20s to 30s, pulse came down to the 105, blood pressure sustained in the 160s. Saturating 95% repeat VBG showed some slight improvement with her acid-base status including improvement her pH and her CO2 came down slightly. Making good headway, currently on continuous albuterol no tremor him, given steroids and magnesium. Placed on antibiotics for COPD and potential pneumonia. Workup revealed a leukocytosis of 15.5, no anemia. Chemistry panel with high bicarbonate but no electrolyte derangements, elevated BUN and normal creatinine. Likely fluid down, on fluids presently. ALT and AST an alk-phos slightly elevated, troponin slightly elevated as well as BNP. Raises suspicion for potential congestive process such as heart failure or right heart strain, she does have high risk for cardiac and vascular disease and considerations for pulmonary embolism higher now. Patient is doing better on the BiPAP therapy and I believe can safely go to CT for CT angiography with PE protocol. This was ordered and interpreted by radiology and myself as negative with no PE. There is right lung base atelectasis and upper lobe atelectasis likely secondary from her previous radiation therapy. She had a previous lung cancer that required surgery and radiation therapy. Family is aware of this and this and likely not a new finding but we have no previous CT imaging to compare to here in the ED. Patient was re-evaluated multiple times and initially she had improvement in the BiPAP therapy however she started complaining that she was getting tired and did have several episodes where she was falling asleep and slumping over on the BiPAP causing airway obstruction requiring frequent repositioning. I called and spoke to the mid-level provider covering the hospitalist group at this time and she recommended getting a repeat VBG and seeing if we need to intubate her if there is worsening respiratory status and tiring on the BiPAP. I did concur and we ordered a VBG which shows worsening on acid-base status at this time with rising CO2 despite BiPAP therapy on maximum support without invasive ventilation. I spoke to the religious ritual slaughterer Dr. Gresham over the phone and made them aware of patient's presentation and need for ICU with potential impending intubation. I had discussions with the patient's family and patient at bedside regarding next steps and given that she is tiring out on the BiPAP and will likely not have significant improvement without aggressive therapies patient and family were okay with intubation at this time and patient is a full code. They states she has been intubated before for similar circumstances. Controlled intubations setting with respiratory therapy called to bedside, medications drawn and intubation with a glide scope with 1st pass success done at bedside without difficulty. Patient tolerated the intubation well, initial chest x-ray shows right mainstem intubation, pulled back about 3 cm with appropriate position of the ET tube above the vera now. Patient is stable for transport to the ICU at this time. I discussed the case with the religious ritual slaughterer and the hospitalist over the phone and made them aware patient's presence and ICU admission at this time. Differential Diagnosis Differential diagnosis: Likely acute exacerbation of chronic obstructive airways disease, congestive heart failure, community acquired pneumonia, asthma with exacerbation, pulmonary embolism and other Medical Records Attestation: I reviewed the patient's medical records. Lab Data Attestation: I reviewed the patient's lab results. 07/30/24 12:30 07/30/24 12:30 Labs: Lab Results 07/30/24 07/30/24 07/30/24 Range/Units 12:19 12:30 13:05 WBC 15.5 H (4.5-10.0) K/mm3 RBC 4.72 (4.2-5.4) M/mm3 Hgb 14.7 (12.0-15.0) g/dL Hct 46.0 (37.0-47.0) % MCV 97.5 (80-100) fl MCH 31.1 (26-34) pg MCHC 32.0 (32-36) g/dl RDW 13.3 (11.5-14.5) % Plt Count 338 (150-375) k/mm3 MPV 10.6 H (7.4-10.4) fl Immature Gran % (Auto) Not Reportable Neut % (Auto) Not Reportable Lymph % (Auto) Not Reportable Jerauld % (Auto) Not Reportable Eos % (Auto) Not Reportable Baso % (Auto) Not Reportable Lymph # (Auto) Not Reportable Jerauld # (Auto) Not Reportable Eos # (Auto) Not Reportable Baso # (Auto) Not Reportable Abs Immat Gran (auto) Not Reportable Absolute Neuts (auto) Not Reportable Absolute Nucleated RBC Not Reportable Total Counted 100 Neutrophils % (Manual) 56 (46-73) % Lymphocytes % (Manual) 35 (18-44) % Monocytes % (Manual) 5 (3-9) % Metamyelocytes % 4 % Nucleated RBC % Not Reportable Abs Lymphs (Manual) 5.42 H (1.1-4.5) K/mm3 Abs Monocytes (Manual) 0.77 (0.1-0.90) K/mm3 Platelet Estimate Adequate (Adequate) Anisocytosis 1+ Schistocytes None seen PT 14.5 (11.1-14.7) Seconds INR 1.1 APTT 27.9 (22.3-36.8) Seconds Methemoglobin 0.3 (0-1.5) %THb Expiratory Pressure 6 6 cmH2O Inspiratory Pressure 14 14 cmH2O Sodium 139 (137-145) mmol/L Potassium 3.7 (3.4-5.0) mmol/L Chloride 99 (98-107) mmol/L Carbon Dioxide 34 H (22-30) mmol/L Anion Gap 6 (4-12) mmol/L BUN 28 H (7-17) mg/dL Creatinine 0.90 (0.7-1.0) mg/dL Estim Creat Clear Calc 56 ml/min Estimated GFR > 60 (59 - ) Glucose 217 H (65-110) mg/dL Calcium 9.6 (8.4-10.2) mg/dL Total Bilirubin 1.2 (0.2-1.3) mg/dL AST 68 H (14-36) U/L ALT 103 H (6-35) U/L Alkaline Phosphatase 183 H (38-126) U/L Troponin I 0.307 H* (0.000-0.034) ng/mL NT-Pro-B Natriuret Pep 7930 H (19.9-100) pg/mL Total Protein 8.0 (6.3-8.2) g/dL Albumin 4.0 (3.5-5.1) g/dL 07/30/24 Range/Units 17:45 WBC (4.5-10.0) K/mm3 RBC (4.2-5.4) M/mm3 Hgb (12.0-15.0) g/dL Hct (37.0-47.0) % MCV (80-100) fl MCH (26-34) pg MCHC (32-36) g/dl RDW (11.5-14.5) % Plt Count (150-375) k/mm3 MPV (7.4-10.4) fl Immature Gran % (Auto) Neut % (Auto) Lymph % (Auto) Jerauld % (Auto) Eos % (Auto) Baso % (Auto) Lymph # (Auto) Jerauld # (Auto) Eos # (Auto) Baso # (Auto) Abs Immat Gran (auto) Absolute Neuts (auto) Absolute Nucleated RBC Total Counted Neutrophils % (Manual) (46-73) % Lymphocytes % (Manual) (18-44) % Monocytes % (Manual) (3-9) % Metamyelocytes % % Nucleated RBC % Abs Lymphs (Manual) (1.1-4.5) K/mm3 Abs Monocytes (Manual) (0.1-0.90) K/mm3 Platelet Estimate (Adequate) Anisocytosis Schistocytes PT (11.1-14.7) Seconds INR APTT (22.3-36.8) Seconds Methemoglobin (0-1.5) %THb Expiratory Pressure 6 cmH2O Inspiratory Pressure 14 cmH2O Sodium (137-145) mmol/L Potassium (3.4-5.0) mmol/L Chloride (98-107) mmol/L Carbon Dioxide (22-30) mmol/L Anion Gap (4-12) mmol/L BUN (7-17) mg/dL Creatinine (0.7-1.0) mg/dL Estim Creat Clear Calc ml/min Estimated GFR (59 - ) Glucose (65-110) mg/dL Calcium (8.4-10.2) mg/dL Total Bilirubin (0.2-1.3) mg/dL AST (14-36) U/L ALT (6-35) U/L Alkaline Phosphatase (38-126) U/L Troponin I (0.000-0.034) ng/mL NT-Pro-B Natriuret Pep (19.9-100) pg/mL Total Protein (6.3-8.2) g/dL Albumin (3.5-5.1) g/dL ABG Data ABG results: 07/30/24 07/30/24 07/30/24 12:19 13:05 17:45 Puncture Site Right radial ABG pH 7.219 L* ABG pCO2 77.9 H* ABG pO2 99.2 ABG PO2/FiO2 Ratio 0.99 ABG HCO3 31.1 H ABG O2 Saturation 96.0 ABG O2 Content 21.0 ABG Base Excess 0.7 VBG pH 7.244 L* 7.247 L* VBG pCO2 68.6 H* 74.0 H* VBG pO2 48.0 H 71.2 H VBG HCO3 29.0 31.5 H A-a Gradient 535.9 Oxyhemoglobin 95.2 Carboxyhemoglobin 1.1 Reduced Hemoglobin 3.4 Total Hemoglobin 15.6 O2 Delivery Device Bipap Bipap Bipap O2 Liters/Min Not Reportable Not Reportable Not Reportable FiO2 100 100 70 Imaging Data Attestation: I personally reviewed and interpreted this imaging study as follows: My impression: Impressions Chest X-Ray 07/30/24 12:42 IMPRESSION: 1. Mass at the right hilum, consistent with malignancy and/or treatment changes. 2. Volume loss of right hemithorax with airspace opacities in right upper lobe, likely atelectasis. Pneumonia cannot be excluded. 3. Airspace opacities in left mid and lower lung zones, consistent with atelectasis versus pneumonia. Chest CTA 07/30/24 16:19 IMPRESSION: Right lung atelectasis including particularly upper and lower lobes; which may be due to malignant or radiation stricture of the right bronchial airways. Consider PET/CT correlation No pulmonary embolism Chest X-Ray 07/30/24 18:49 IMPRESSION: 2 tip is situated at the origin of the right mainstem right; repositioning 3 cm is proximally is recommended Abdomen X-Ray 07/30/24 18:52 IMPRESSION: NG tube is in the gastric antrum approximately Chest X-Ray 07/30/24 20:43 IMPRESSION: Repositioning of ET tube in satisfactory position Critical Care Time Critical Care Time Critical Care Time: Yes Total Critical Care Time: 120 Discharge Plan Discharge Clinical Impression: Acute hypoxic on chronic hypercapnic respiratory failure, Hypercapnia, Acute exacerbation of chronic obstructive pulmonary disease, Acute hypercapnic respiratory failure, Airway intubation performed without difficulty, Elevated troponin Respiratory failure Qualifiers: Chronicity: acute Respiratory failure complication: hypercapnia Qualified Code(s): J96.02 - Acute respiratory failure with hypercapnia Patient Disposition: Still a Patient Condition: Serious Patient Language: Lithuanian Prescriptions: No Action furosemide 40 mg tablet montelukast 10 mg tablet loratadine 10 mg tablet Trelegy Ellipta 100-62.5-25 mcg blister with device INHALATION albuterol sulfate 2.5 mg /3 mL (0.083 %) Solution For Nebulization 2.5 mg INHALATION Q4H PRN (Reason: Shortness Of Breath Or Wheezing) atorvastatin 10 mg tablet 10 mg PO DAILY herbal drugs Tablet PO potassium chloride 10 mEq capsule, extended release 10 meq PO DAILY Follow-up/Referrals: Paula Robles APRN [Primary Care Provider] - Time of Disposition: 19:29
[2024-07-30 12:45] LABS: Alanine Aminotransferase 103 U/L (6-35); Alkaline Phosphatase 183 U/L (38-126); Anion Gap 6 mmol/L (4-12); Aspartate Amino Transferase 68 U/L (14-36); Bilirubin,Total 1.2 mg/dL (0.2-1.3); Blood Urea Nitrogen 28 mg/dL (7-17); Calcium 9.6 mg/dL (8.4-10.2); Carbon Dioxide 34 mmol/L (22-30); Chloride 99 mmol/L (98-107); Estimated CRCL calculation 56 ml/min; Estimated Glomerular Filt Rate > 60; Glucose 217 mg/dL (65-110); Potassium 3.7 mmol/L (3.4-5.0); Sodium 139 mmol/L (137-145)
[2024-07-30 12:50] LABS: INR 1.1; Prothrombin Time 14.5 Seconds (11.1-14.7)
[2024-07-30 12:51] LABS: Partial Thromboplastin Time 27.9 Seconds (22.3-36.8)
[2024-07-30 12:58] LABS: Lymphocytes Absolute Manual 5.42 K/mm3 (1.1-4.5); Lymphocytes Percent Manual 35 % (18-44); Metamyelocytes Percent 4 %; Monocytes Absolute Manual 0.77 K/mm3 (0.1-0.90); Monocytes Percent Manual 5 % (3-9); Neutrophils Percent Manual 56 % (46-73); Total Cells Counted 100
[2024-07-30 12:59] LABS: Anisocytosis 1+; NT Pro B Type Natriuretic Pept 7930 pg/mL (19.9-100); Platelet Estimate Adequate (Adequate); Schistocytes None Seen; Troponin I 0.307 ng/mL (0.000-0.034)
[2024-07-30 13:10] LABS: Fractional Inspired Oxygen 100 %
[2024-07-30] MEDS: DOXYCYCLINE 100 MG/NS 100 ML 100 MG/100 ML BAG IVPB (13:10)
[2024-07-30 13:11] LABS: Device BIPAP; Expiratory Pressure 6 cmH2O; Inspiratory Pressure 14 cmH2O; PCO2 VBG 68.6 mmHg (42.0-48.0); pH VBG 7.244 (7.300-7.400)
[2024-07-30] MEDS: methylPREDNISolone SOD SUCC 125 MG VIAL IV PUSH (13:30)
[2024-07-30 17:52] LABS: Fractional Inspired Oxygen 70 %; HCO3 VBG 31.5 mEq/l (24.0-30.0); PO2 VBG 71.2 mmHg (35.0-45.0)
[2024-07-30 17:54] LABS: pH VBG 7.247 (7.300-7.400)
[2024-07-30 17:55] LABS: Device BIPAP; Expiratory Pressure 6 cmH2O; Inspiratory Pressure 14 cmH2O
--- NOTE | 2024-07-30 18:10 | PC.NURSE ---
30mg etomidate given IVP followed by 100mg rocuronium IVP per EDP [facility].
--- NOTE | 2024-07-30 18:43 | PM.IMHP ---
H&P: HPI History of Present Illness Date/Time: 07/30/24 18:43 Chief Complaint: Acute respiratory distress Narrative: 54-year-old female with history of hypertension and hyperlipidemia presents in severe respiratory distress. Family had called EMS because the patient was having extremely difficult time breathing. EMS found the patient to be on 44% room air with good waveform blue and cyanotic in the face but still awake and mentating. She was placed on CPAP and transported to the hospital. With the CPAP her oxygenation improved along with her mentation. The plan was to keep her on the BiPAP and transferred to IMU however repeat ABG showed worsening hypercarbia and patient was intubated in the ED. review of the chest x-ray showed that the ET tube was in the right bronchus. CLIENT INSIGHTS CONSULTANT called the ED nurse to remove the ET tube by 3 cm with repeat chest x-ray shows ET tube is in correct position Along with OT. Patient sounds like she has a cuff leak, CLIENT INSIGHTS CONSULTANT was unable to resolve the problem and decided to have the ICU RT adjusted. RT in the ICU believes that it may be anatomically issue and patient is getting proper tidal volumes in oxygenation at this time so ETT cuff is left alone. Patient appears to be extremely distended however soft, KUB ordered, appears to have no acute findings. Okay to Hook NG to lower and intermittent section. Blood culture and urine culture collected. Torres placed due to aggressive resuscitation. Patient has umbilical hernia which is soft. Review of Systems Review of Systems: ROS unobtainable: Yes unobtainable due to endotracheal tube PMFSH Past Medical History Medical History Colles' fracture of right radius (~05/09/23) Lung cancer (~05/2017) Emphysema/COPD Hyperlipidemia Surgical History Surgical History H/O section Social History Social History Smoking status: Former smoker Alcohol intake: never Substance use: never Substance use type: does not use Lack of Transportation: No Lack of Food: Never True Current Housing: I Have Housing Concerned About Future Housing: No Difficulty Paying Gas/Electric Bills: No Difficulty Paying for Meds: No Currently Unemployed: No Education: High School Diploma/GED Difficulty w/ Childcare or Family Care: No Meds Home Medications and Allergies Home Medications ?Medication ?Instructions ?Recorded ?Confirmed ?Type atorvastatin 10 mg tablet 10 mg PO DAILY 05/12/23 07/30/24 History potassium chloride 10 mEq 10 meq PO DAILY 05/12/23 07/30/24 History capsule,extended release albuterol sulfate 2.5 mg/3 mL 2.5 mg inhalation Q4H PRN 07/04/23 07/30/24 History (0.083 %) solution for nebulization Shortness Of Breath Or Wheezing fluticasone fur. 100 mcg-umeclid inhalation 07/04/23 07/09/23 History 62.5 mcg-vilant 25 mcg inhalat.powder (Trelegy Ellipta) furosemide 40 mg tablet mg 07/04/23 07/09/23 History loratadine 10 mg tablet mg 07/04/23 07/09/23 History montelukast 10 mg tablet mg 07/04/23 07/09/23 History mirabegron 50 mg tablet,extended 50 mg PO DAILY 07/31/24 07/31/24 History release 24 hr (Myrbetriq) Allergies Allergy/AdvReac Type Severity Reaction Status Date / Time No Known Allergies Allergy Mild Verified 07/30/24 12:30 Vital Signs Vital Signs - 24 hr 07/30/24 12:10 07/30/24 12:13 07/30/24 12:15 Temperature 97.3 F L Pulse Rate 137 H 135 H 127 H Respiratory Rate 37 H 28 H 37 H Blood Pressure 163/123 H Pulse Oximetry 95 92 Oxygen Delivery BiPAP Fraction of Inspired Oxygen 07/30/24 12:28 07/30/24 12:28 07/30/24 12:30 Temperature Pulse Rate 128 H Respiratory Rate Blood Pressure Pulse Oximetry 93 93 Oxygen Delivery BiPAP BiPAP Fraction of Inspired Oxygen 07/30/24 13:00 07/30/24 13:35 07/30/24 14:00 Temperature Pulse Rate 109 H 116 H 108 H Respiratory Rate 32 H 30 H 28 H Blood Pressure 165/91 H 157/78 H Pulse Oximetry 96 97 96 Oxygen Delivery BiPAP Fraction of Inspired Oxygen 07/30/24 15:00 07/30/24 15:40 07/30/24 15:50 Temperature Pulse Rate 103 H 107 H Respiratory Rate 24 H 28 H Blood Pressure 139/86 Pulse Oximetry 98 100 99 Oxygen Delivery BiPAP Fraction of Inspired Oxygen 07/30/24 16:00 07/30/24 16:45 07/30/24 16:55 Temperature Pulse Rate 104 H 104 H 105 H Respiratory Rate 26 H 26 H 28 H Blood Pressure 143/92 H 148/93 H Pulse Oximetry 97 98 97 Oxygen Delivery BiPAP Fraction of Inspired Oxygen 07/30/24 17:15 07/30/24 18:10 Temperature Pulse Rate 103 H 100 Respiratory Rate 22 H Blood Pressure 120/67 Pulse Oximetry 97 97 Oxygen Delivery Mechanical Ventilation Fraction of Inspired Oxygen 50 Exam Narrative: General: Intubated lightly sedated, OG HEENT: normocephalic, atraumatic. Mucous membranes moist. EOMI, PERRLA, bilateral sclera anicteric, no conjunctival injection. Neck supple without JVD, lymphadenopathy, or bruit. Respiratory: Diminished, synchronized with the ventilator Cardiovascular: Regular rate and rhythm, normal S1-S2 upon ascultation. No murmurs, rubs, or clicks. PMI is nondisplaced, capillary refill less than 3 second. Abdomen: Soft, round, no pulsatile masses, distended and nontender. Umbilical hernia easily reduced. Bowel sounds present to all four quadrants. No high pitch or tinkling sounds, resonant to percussion. Extremities: No cyanosis, clubbing, or edema present. Pulses are palpable 2/2. Active ROM to all four extremities. Neuro: Intubated sedated moves all extremities. Skin: Warm, dry, and intact, without rash, erythema, or lesion. Psych: Unable to assess Torres catheter H&P: Results Labs Labs: Short CBC 07/30/24 Range/Units 12:30 WBC 15.5 H (4.5-10.0) K/mm3 Hgb 14.7 (12.0-15.0) g/dL Hct 46.0 (37.0-47.0) % Plt Count 338 (150-375) k/mm3 BMP 07/30/24 12:30 Sodium 139 Potassium 3.7 Chloride 99 Carbon Dioxide 34 H BUN 28 H Creatinine 0.90 Glucose 217 H Calcium 9.6 Cardiac Enzymes 07/30/24 Range/Units 12:30 Troponin I 0.307 H* (0.000-0.034) ng/mL Liver Function 07/30/24 Range/Units 12:30 Total Bilirubin 1.2 (0.2-1.3) mg/dL AST 68 H (14-36) U/L ALT 103 H (6-35) U/L Alkaline Phosphatase 183 H (38-126) U/L Albumin 4.0 (3.5-5.1) g/dL Assessment and Plan Assessment and plan (1) Respiratory failure: Qualifiers: Chronicity: acute Respiratory failure complication: hypercapnia Qualified Code(s): J96.02 - Acute respiratory failure with hypercapnia Code(s): J96.90 - Respiratory failure, unspecified, unspecified whether with hypoxia or hypercapnia Status: Acute Assessment and Plan: Patient failed BiPAP and was intubated in the emergency room ET tube was in the right mainstem, retracted at least 3 cm and repeat x-ray Repeat ABG after 1 hour, patient is adequate on current vent settings Daily chest x-ray, ABG, CMP, CBC magnesium and phosphorus. (2) Pneumonia: Code(s): J18.9 - Pneumonia, unspecified organism Status: Acute Assessment and Plan: Patient on azithromycin, Rocephin and vancomycin IV Solu-Medrol (3) Leukocytosis: Code(s): D72.829 - Elevated white blood cell count, unspecified Status: Acute Assessment and Plan: Urine culture positive for nitrates, negative for leukocyte esterase Likely due to pneumonia (4) Diabetes: Code(s): E11.9 - Type 2 diabetes mellitus without complications Status: Acute Assessment and Plan: Patient is on a medium dose q.6 hour insulin due to steroids ICU may adjust as needed Okay with the hospitalist team to start feeds after nutrition consult (5) Elevated troponin: Code(s): R79.89 - Other specified abnormal findings of blood chemistry Status: Acute Assessment and Plan: Likely due to hypoxia EKG shows sinus tach Troponins trending down (6) CHF (congestive heart failure): Code(s): I50.9 - Heart failure, unspecified Status: Acute Assessment and Plan: Patient dehydrated in the emergency room Lasix held Plan Stress ulcer prophylaxis Quality VTE Prophylaxis VTE prophylaxis: mechanical ordered Hospitalist MIPS Advance Care Plan I have confirmed that the patient's Advanced Care Plan is present, code status is documented, or surrogate decision maker is listed in patient medical record.: Yes Medication Reconciliation I have utilized all available resources to obtain, update and review the patients current medications (includes all prescriptions, OTC, herbals, cannabis, and nutritional supplements).: Yes
[2024-07-30] MEDS: FENTANYL 2,500MCG/NS250ML(*CRX 2,500 MCG/250 ML BAG IV CONT (19:27)
--- NOTE | 2024-07-30 20:09 | ECG_ITS ---
Test Date: 2024-07-30 21:46:43 Measurements Intervals [place] Rate: 102 P: 61 VA: 142 QRS: -12 QRSD: 137 T: 253 QT: 383 QTc: 499 Interpretive Statements SINUS TACHYCARDIA LEFT ATRIAL ENLARGEMENT [-0.15mV P-WAVE IN V1/V2] RIGHT BUNDLE BRANCH BLOCK [120+ ms QRS DURATION, UPRIGHT V1, 40+ ms S IN I/aVL/V4/V5/V6] MODERATE T-WAVE ABNORMALITY, CONSIDER LATERAL ISCHEMIA [-0.1+ mV T-WAVE IN I/aVL/V5/V6] MODERATE T-WAVE ABNORMALITY, CONSIDER INFERIOR ISCHEMIA [-0.1+ mV T-WAVE IN II/aVF] Electronically Signed On 08-01-2024 14:50:29 DIRECTOR CAREER SERVICES by Clarence Alvarez M.D.
[2024-07-30] MEDS: MIDAZOLAM HCL (*CRX) 2 MG/2 ML VIAL IV PUSH ×2 (20:32→21:14)
[2024-07-30] MEDS: MIDAZOLAM 100MG/NS 100ML(*CRX) 100 MG/100 ML BAG IV CONT ×2 (21:20→23:40)
[2024-07-30 21:47] LABS: Alveolar/Arterial O2 Gradient 282.8 mmHg; Base Excess ABG 2.7 mEq/l (+/-2.0); Carboxyhemoglobin 0.9 % THb (0-2.0); Fractional Inspired Oxygen 60 %; HCO3 ABG 28.2 mEq/l (22.0-26.0); Methemoglobin ABG 0.3 %THb (0-1.5); Oxygen Content ABG 19.8 %vol (16.0-22.0); Oxygen Saturation ABG 97.1 % (95.0-100.0); Oxyhemoglobin 96.3 % THb (90.0-100.0); PCO2 ABG 46.4 mmHg (35.0-45.0); PO2 FiO2 Ratio Arterial Blood 1.57 %; Reduced Hemoglobin 2.5 %THb (0-5.0); Total Hemoglobin 14.6 g/dL (12.0-18.0); pH ABG 7.401 (7.350-7.450)
[2024-07-30 21:49] LABS: Arterial Blood Gas PEEP 5 cmH2O; Arterial Blood Gas Vent Mode CMV; Arterial Blood Gas Ventilator rate 20 /MIN; Device VENTILATOR; Modified Allen's Test Pass; Site Drawn LEFT RADIAL
[2024-07-30 21:50] LABS: Arterial Blood Gas Tidal Volume 420 ml
[2024-07-30] MEDS: VANCOMYCIN 1,250 MG/NS 250 ML 1,250 MG/250 ML BAG 166.67 MG IVPB (22:13)
[2024-07-30 22:25] LABS: Add Urine Microscopic? YES; Appearance Urine Clear (Clear); Bacteria Urine Rare /hpf; Bilirubin Urine Negative (Negative); Blood Urine 1+ (Negative); Color Urine Dark Yellow (Yellow); Glucose Urine UA Negative (Negative); Ketones Urine Negative (Negative); Leukocyte Esterase Ur Negative LEU/UL (Negative); Need Manual Microscopic Reviewed; Nitrate Urine Positive (Negative); Protein Urine 2+ mg/dL (Negative); Specific Grav Ur > 1.045 (1.001-1.035); Squamous Epithelial Cell Urine Occasional /hpf (Few); WBC Urine 0-5 /hpf (0-3)
[2024-07-30 22:28] LABS: Lactic Acid Reflex 1.7 mmol/L (0.7-2.0)
[2024-07-30 23:19] LABS: Troponin I 0.262 ng/mL (0.000-0.034)
[2024-07-30] MEDS: FENTANYL 2,500MCG/NS250ML(*CRX 2,500 MCG/250 ML BAG 15 MCG IV CONT (23:40)
--- NOTE | 2024-07-30 23:40 | PC.NURSE ---
This patient, Gaby Morgan, was admitted to Intensive Care Unit-5. Patient/family oriented to hospital policies and general routines including ID bracelet, bed and alarms, visiting hours, pain management, procedures, bathroom and other care routines, personal items, smoking policy, room service/diet, and visiting hours. Information on how to activate the Rapid Response Team has been discussed. Patient/Family are encouraged to report perceived risks to care and to ask questions if they do not understand what they are told or what they should do.
[2024-07-31] VITALS (32 sets, daily range): BP systolic 106–134; BP diastolic 64–84; PULSE 73–101; RESP 16–22; TEMP 36.4–37.1; O2SAT 90–100; BMI 44.9
--- NOTE | 2024-07-31 | ECHO_ITS ---
Patient Info Name: Gaby Morgan Age: 74 years : 1950 Gender: Female Ht: 61 in Wt: 237 lbs BSA: 2.22 m2 HR: 87 bpm BP: 135 / 80 mmHg Technical Quality: Poor Exam Date: 07/31/2024 10:32 AM Exam Location: Echo Lab Patient Status: Inpatient Admit Date: 07/30/2024 Staff Ordering Physician: Chau Gresham MD Talent Acquisition Associate: Ryan Rutledge RDCS Attending Provider: Lemuel Oliver MD Referring Physician: Mp RILEY; Exam Type: CA echo dop color flow w con Study Info Indications - ELEVATED TROPONIN Complete two-dimensional, color flow and Doppler transthoracic echocardiogram is performed with contrast to opacify the left ventricle and to improve the deliniation of the left ventricle endocardial borders. Contrast/Agitated Saline Contrast/Ag. Saline: Definity Amount: 2.00 ml Existing IV Access: Yes Summary 1. Very technically difficult study with limited views. 2. The left ventricle grossly appears normal size and systolic function in the available and technically difficult views that were obtained in this study. 3. The right ventricle appears dilated with severely reduced systolic function in the available and technically difficult views that were obtained in this study. 4. Dilated inferior vena cava with <50% collapse upon inspiration consistent with significantly elevated right atrial pressure, 15 mmHg. Left Ventricle The left ventricle grossly appears normal size and systolic function in the available and technically difficult views that were obtained in this study. Right Ventricle The right ventricle appears dilated with severely reduced systolic function in the available and technically difficult views that were obtained in this study. Left Atria The left atrium is not well visualized. Right Atria The right atrium is not well visualized. Atrial Septum The atrial septum is not well visualized. Aortic Valve There is no Doppler gradient evidence of aortic stenosis or aortic regurgitation. Pulmonic Valve The pulmonic valve is not visualized. Mitral Valve There is no color Doppler evidence of mitral regurgitation in the available views. Tricuspid Valve There is no color Doppler evidence of tricuspid regurgitation in the available views. Pericardium/Pleural There appears to be some pericardial effusion but difficult to quantify due to technically difficult views. Inferior Vena Cava Dilated inferior vena cava with <50% collapse upon inspiration consistent with significantly elevated right atrial pressure, 15 mmHg. Aorta The aorta is not well visualized. Left Ventricular Outflow Tract Name Value Normal LVOT Doppler LVOT Peak Gradient 3 mmHg LVOT Mean Gradient 2 mmHg LVOT VTI 16.94 cm LVOT VTI/AV VTI Ratio 0.61 Mitral Valve Name Value Normal MV Doppler MV Decel [place] 506.03 cm/s2 MV PHT 0 s MV Area (PHT) 8.43 cm2 4.00-5.00 MV Diastolic Function MV E Peak Velocity 45.56 cm/s MV A Peak Velocity 88.09 cm/s MV E/A 0.52 MV Decel Time 0 s MV Annular TDI MV E/e' (Septal) 10.80 <=8.00 MV E/e' (Lateral) 8.55 <=8.00 MV E/e' (Average) 9.68 Tricuspid Valve Name Value Normal Estimated PAP/RSVP RA Pressure 15 mmHg <=5 Aortic Valve Name Value Normal AV Doppler AV Peak Velocity 113.66 cm/s AV Peak Gradient 5 mmHg AV Mean Gradient 3 mmHg AV VTI 27.55 cm Report Signatures
[2024-07-31] MEDS: VANCOMYCIN 1,250 MG/NS 250 ML 1,250 MG/250 ML BAG 166.67 MG IVPB (00:25)
[2024-07-31] MEDS: methylPREDNISolone SOD SUCC 40 MG VIAL IV PUSH ×5 (01:02→23:05)
[2024-07-31] MEDS: AZITHROMYCIN 500 MG/NS 250 ML 500 MG/250 ML BAG 250 MG IVPB (01:02)
[2024-07-31] MEDS: cefTRIAXone 2 GM/NS 100 ML 2 GM/100 ML BAG IVPB ×2 (01:03→23:04)
[2024-07-31 01:28] LABS: Glucose Point of Care 157 mg/dl (65-105)
[2024-07-31] MEDS: IPRATROPIUM 0.5 MG/ALBUTEROL SULFATE 2.5 MG AMPUL.NEB 3 ML INHALATION ×6 (02:21→23:20)
[2024-07-31 04:31] LABS: Alanine Aminotransferase 69 U/L (6-35); Albumin Level 3.3 g/dL (3.5-5.1); Alkaline Phosphatase 145 U/L (38-126); Anion Gap 4 mmol/L (4-12); Aspartate Amino Transferase 37 U/L (14-36); Bilirubin,Total 0.7 mg/dL (0.2-1.3); Blood Urea Nitrogen 26 mg/dL (7-17); Calcium 8.9 mg/dL (8.4-10.2); Carbon Dioxide 30 mmol/L (22-30); Chloride 104 mmol/L (98-107); Estimated CRCL calculation 60 ml/min; Estimated Glomerular Filt Rate > 60; Glucose 141 mg/dL (65-110); Magnesium 2.5 mg/dL (1.6-2.3); Phosphorus 2.9 mg/dL (2.5-4.5); Potassium 3.5 mmol/L (3.4-5.0); Sodium 138 mmol/L (137-145)
[2024-07-31 06:36] LABS: Glucose Point of Care 140 mg/dl (65-105)
[2024-07-31 06:46] LABS: Alveolar/Arterial O2 Gradient 211.9 mmHg; Base Excess ABG 3.8 mEq/l (+/-2.0); Carboxyhemoglobin 0.4 % THb (0-2.0); Fractional Inspired Oxygen 50 %; HCO3 ABG 28.7 mEq/l (22.0-26.0); Methemoglobin ABG 0.2 %THb (0-1.5); Oxygen Content ABG 17.9 %vol (16.0-22.0); Oxygen Saturation ABG 97.4 % (95.0-100.0); Oxyhemoglobin 96.9 % THb (90.0-100.0); PCO2 ABG 44.2 mmHg (35.0-45.0); PO2 ABG 94.9 mmHg (80.0-100.0); Reduced Hemoglobin 2.5 %THb (0-5.0); Total Hemoglobin 13.1 g/dL (12.0-18.0)
[2024-07-31 06:47] LABS: Arterial Blood Gas PEEP 5 cmH2O; Arterial Blood Gas Tidal Volume 420 ml; Arterial Blood Gas Vent Mode CMV; Arterial Blood Gas Ventilator rate 20 /MIN; Device VENTILATOR; Modified Allen's Test Pass; Site Drawn RIGHT RADIAL
[2024-07-31 07:19] LABS: MRSA (PCR) NOT DETECTED (NOT DETECTE)
[2024-07-31] MEDS: POTASSIUM CHLORIDE 20 MEQ PACKET (FOR LIQUID) 40 MEQ FEED TUBE (07:57)
[2024-07-31] MEDS: ENOXAPARIN 40 MG/0.4 ML SYRINGE SUB-Q (08:00)
[2024-07-31] MEDS: PANTOPRAZOLE SODIUM IV 40 MG VIAL IV PUSH (08:00)
[2024-07-31] MEDS: MINERAL OIL/WHITE PETROLATUM OINTMENT 1 APPLIC EACH EYE ×2 (08:02→20:34)
[2024-07-31 08:04] LABS: Basophils Percent Auto 0.5 % (0.2-1.2); Eosinophils Absolute Auto 0.1 K/mm3 (0-0.3); Eosinophils Percent Auto 0.6 % (0-4.4); Hematocrit 41.7 % (37.0-47.0); Hemoglobin 13.3 g/dL (12.0-15.0); Immature Granulocyte Absolute 0.29 K/mm3 (0.00-0.031); Immature Granulocyte Percent A 3.8 % (0-0.5); Lymphocytes Absolute Auto 0.93 K/mm3 (0.9-3.2); Mean Corpuscular HGB Conc 31.9 g/dl (32-36); Mean Corpuscular Hemoglobin 30.9 pg (26-34); Mean Corpuscular Volume 96.8 fl (80-100); Mean Platelet Volume 10.6 fl (7.4-10.4); Monocytes Absolute Auto 0.6 K/mm3 (0.1-0.6); Monocytes Percent Auto 7.9 % (2.6-8.5); Neutrophils Absolute Auto 5.8 K/mm3 (1.3-6.7); Neutrophils Percent Auto 75.2 % (45.5-73.1); Nucleated Red Blood Cells Perc 0.4 % (0.0-0.2); Platelet Count Result 219 k/mm3 (150-375); Red Blood Count 4.31 M/mm3 (4.2-5.4); Red Cell Distribution Width 13.3 % (11.5-14.5); White Blood Count 7.7 K/mm3 (4.5-10.0)
[2024-07-31 09:00] LABS: Influenza A QL RT-PCR Negative (Negative); Influenza B QL RT-PCR Negative (Negative); RSV RNA, RT-PCR Negative (Negative); SARS-CoV-2 RNA PCR Negative (Negative)
--- NOTE | 2024-07-31 09:17 | P.CONIN_ITS ---
Assessment and Plan Assessment and plan (1) Acute hypercapnic respiratory failure: Code(s): J96.02 - Acute respiratory failure with hypercapnia Status: Acute Assessment and Plan: 07/30: Patient presented with acute hypoxic and hypercarbic respiratory failure. Failed trial of BiPAP in the ER and was intubated on 07/30 -currently on CMV mode of ventilation, peep of 5, 50% FiO2, wean O2 to maintain O2 sats > 90-92% -continue DuoNebs -continue Solu-Medrol for today, will start weaning tomorrow a.m. -continue ceftriaxone, doxycycline and vancomycin (07/30), will deescalate antibiotics once cultures have resulted -check influenza, RSV, COVID swab -sedated with fentanyl and Versed infusion, maintain RASS of 0 to-2, daily SBT and SAT (2) Acute exacerbation of chronic obstructive pulmonary disease: Code(s): J44.1 - Chronic obstructive pulmonary disease with (acute) exacerbation Status: Acute Assessment and Plan: As above (3) Pneumonia: Code(s): J18.9 - Pneumonia, unspecified organism Status: Acute Assessment and Plan: Continue antibiotics, bronchodilators -07/30: Blood cultures pending -07/30: Urine cultures pending -07/30: Sputum cultures ordered (4) Diabetes: Code(s): E11.9 - Type 2 diabetes mellitus without complications Status: Acute Assessment and Plan: Continue sliding scale insulin and Accu-Cheks -check hemoglobin A1c (5) Elevated troponin: Code(s): R79.89 - Other specified abnormal findings of blood chemistry Status: Acute Assessment and Plan: Elevated troponin, trending down, likely related to type 2 infarct secondary severe hypoxia as patient was saturating 44% on room air upon arrival of the EMS at her house -there was no complains of chest pain -will obtain echocardiogram to rule out wall motion abnormality (6) Electrolyte abnormality: Code(s): E87.8 - Other disorders of electrolyte and fluid balance, not elsewhere classified Status: Acute Assessment and Plan: Will replace potassium Plan DVT prophylaxis: Lovenox Stress ulcer prophylaxis: Protonix Nutrition: Will start tube feeds today, DC IV fluid Code Status: Full code Critical Care Time Spent: 51 minutes Due to a high probability of clinically significant, life threatening deterioration, the patient required my highest level of preparedness to intervene emergently and I personally spent this critical care time directly and personally managing the patient. This critical care time included obtaining a history; examining the patient; pulse oximetry; ordering and review of studies; arranging urgent treatment with development of a management plan; evaluation of patient's response to treatment; frequent reassessment; and discussions with other providers. It was exclusive of separately billable procedures and treating other patients and teaching time. Please see Assessment and Plan section and the rest of the note for further information on patient assessment and treatment This dictation may have been done utilizing a voice recognition system. Attempts have been made to correct errors. However, there may be uncorrected grammatical, spelling, and recognitions errors present. Breaking Machine Operator Consult Note Consult date: 07/31/24 Reason for consult: Hypercapnic respiratory failure requiring intubation, COPD exacerbation, pneumonia HPI: Gaby Morgan is a 74 year old female with past medical history of coli is fracture of the right radius, lung cancer (05/2017) status post radiation and chemotherapy, emphysema, hyperlipidemia presented the ED on 07/30/2024 with complaints of worsening shortness of breaths over the last few days prior to admission. EMS was called and upon their arrival patient was saturating 44% on room air, was blue and cyanotic in the face but still awake and mentating. Patient was placed on CPAP and transported to the hospital. Patient was placed on BiPAP, given intramuscular dose of epinephrine for bronchodilation, along with continues nebs. Patient was initially tachycardic in the 120-1 30s in breathing 30s to 40 times a minute. Initial ABGs showed a pH of 7.2, pCO2 of 78 and a bicarb of 31. Trial of BiPAP was done, tachycardia and tachypnea improved. CT PE protocol was negative for PE, right lung base atelectasis and upper lobe atelectasis likely secondary to a previous radiation therapy. Patient was getting more tired on the BiPAP and was somnolent and slumping over. Patient was intubated in the ER and transferred to the ICU for further management. In the ER WBC count was 15.5, hemoglobin 14.7, platelets 338. INR 1.1. BUN 28 creatinine 0.9, glucose of 217, elevated LFTs, troponin was 0.307 and 0.262. ProBNP was 7930. Patient was started on ceftriaxone, azithromycin and vancomycin and was transferred to the ICU for further manage 07/31: Patient seen and examined the ICU this morning. Remains intubated on CMV mode of ventilation, peep of 5, 50% FiO2. Sedated with fentanyl and Versed infusion. Patient opens her eyes but does not follow simple commands. Withdraws to pain in all extremities. Hemodynamically stable, adequate urine output, afebrile Review of Systems 2 Review of Systems: ROS unobtainable: Yes unobtainable due to endotracheal tube, unobtainable due to medical condition and unobtainable due to mental status PMFSH Past Medical History Medical History Colles' fracture of right radius (~05/09/23) Lung cancer (~05/2017) Emphysema/COPD Hyperlipidemia Surgical History Surgical History H/O section Social History Social History Smoking packs per day: 2 Smoking cigarettes per day: 40.0 Years smoked: 45 Smoking pack-years: 90.00 Smoking status: Former smoker Tobacco type: cigarettes Alcohol intake: never Substance use: never Substance use type: does not use Lack of Transportation: No Lack of Food: Never True Current Housing: I Have Housing Concerned About Future Housing: No Difficulty Paying Gas/Electric Bills: No Difficulty Paying for Meds: No Currently Unemployed: No Education: High School Diploma/GED Difficulty w/ Childcare or Family Care: No Spiritual care concerns: No Meds Home Medications and Allergies Home Medications ?Medication ?Instructions ?Recorded ?Confirmed ?Type atorvastatin 10 mg tablet 10 mg PO DAILY 05/12/23 07/30/24 History potassium chloride 10 mEq 10 meq PO DAILY 05/12/23 07/30/24 History capsule,extended release albuterol sulfate 2.5 mg/3 mL 2.5 mg inhalation Q4H PRN 07/04/23 07/30/24 History (0.083 %) solution for nebulization Shortness Of Breath Or Wheezing fluticasone fur. 100 mcg-umeclid 1 inh inhalation DAILY 07/04/23 07/31/24 History 62.5 mcg-vilant 25 mcg inhalat.powder (Trelegy Ellipta) furosemide 40 mg tablet 40 mg PO DAILY 07/04/23 07/31/24 History loratadine 10 mg tablet 10 mg PO DAILY 07/04/23 07/31/24 History montelukast 10 mg tablet 10 mg PO DAILY 07/04/23 07/31/24 History mirabegron 50 mg tablet,extended 50 mg PO DAILY 07/31/24 07/31/24 History release 24 hr (Myrbetriq) Allergies Allergy/AdvReac Type Severity Reaction Status Date / Time No Known Allergies Allergy Mild Verified 07/30/24 12:30 Vital Signs Vital Signs - 24 hr 07/30/24 12:10 07/30/24 12:13 07/30/24 12:15 Temperature 97.3 F L Pulse Rate 137 H 135 H 127 H Respiratory Rate 37 H 28 H 37 H Blood Pressure 163/123 H Pulse Oximetry 95 92 Oxygen Delivery BiPAP Fraction of Inspired Oxygen 07/30/24 12:23 07/30/24 12:28 07/30/24 12:28 Temperature Pulse Rate 130 H 128 H Respiratory Rate 34 H Blood Pressure Pulse Oximetry 93 Oxygen Delivery BiPAP Fraction of Inspired Oxygen 07/30/24 12:30 07/30/24 12:30 07/30/24 12:43 Temperature Pulse Rate 118 H 124 H Respiratory Rate 32 H 36 H Blood Pressure 161/103 H Pulse Oximetry 93 96 95 Oxygen Delivery BiPAP Fraction of Inspired Oxygen 07/30/24 12:45 07/30/24 12:46 07/30/24 13:00 Temperature Pulse Rate 129 H 113 H 109 H Respiratory Rate 34 H 30 H 32 H Blood Pressure 143/78 H 165/91 H Pulse Oximetry 96 96 96 Oxygen Delivery Fraction of Inspired Oxygen 07/30/24 13:00 07/30/24 13:01 07/30/24 13:15 Temperature Pulse Rate 133 H 134 H Respiratory Rate 34 H 29 H 35 H Blood Pressure 165/91 H Pulse Oximetry 96 96 97 Oxygen Delivery Fraction of Inspired Oxygen 07/30/24 13:16 07/30/24 13:30 07/30/24 13:35 Temperature Pulse Rate 120 H 119 H 116 H Respiratory Rate 33 H 32 H 30 H Blood Pressure 170/84 H Pulse Oximetry 96 97 Oxygen Delivery BiPAP Fraction of Inspired Oxygen 07/30/24 14:00 07/30/24 14:25 07/30/24 14:27 Temperature Pulse Rate 108 H 106 H 107 H Respiratory Rate 28 H 21 H 25 H Blood Pressure 157/78 H 157/78 H Pulse Oximetry 96 99 Oxygen Delivery Fraction of Inspired Oxygen 07/30/24 14:30 07/30/24 14:31 07/30/24 14:45 Temperature Pulse Rate 108 H 108 H 105 H Respiratory Rate 31 H 18 28 H Blood Pressure 157/97 H Pulse Oximetry 100 100 98 Oxygen Delivery Fraction of Inspired Oxygen 07/30/24 14:46 07/30/24 15:00 07/30/24 15:10 Temperature Pulse Rate 101 H 103 H 100 Respiratory Rate 26 H 24 H 26 H Blood Pressure 149/82 H 139/86 Pulse Oximetry 98 98 98 Oxygen Delivery Fraction of Inspired Oxygen 07/30/24 15:15 07/30/24 15:16 07/30/24 15:37 Temperature Pulse Rate 104 H 103 H 106 H Respiratory Rate 31 H 25 H 27 H Blood Pressure 139/85 Pulse Oximetry 98 98 99 Oxygen Delivery Fraction of Inspired Oxygen 07/30/24 15:40 07/30/24 15:45 07/30/24 15:50 Temperature Pulse Rate 107 H 108 H Respiratory Rate 28 H 25 H Blood Pressure Pulse Oximetry 100 99 99 Oxygen Delivery BiPAP Fraction of Inspired Oxygen 07/30/24 16:00 07/30/24 16:27 07/30/24 16:29 Temperature Pulse Rate 104 H 106 H Respiratory Rate 26 H 28 H Blood Pressure 143/92 H 147/89 H Pulse Oximetry 97 97 95 Oxygen Delivery Fraction of Inspired Oxygen 07/30/24 16:30 07/30/24 16:31 07/30/24 16:45 Temperature Pulse Rate 108 H 106 H 104 H Respiratory Rate 28 H 26 H 26 H Blood Pressure 143/92 H 148/93 H Pulse Oximetry 98 98 98 Oxygen Delivery Fraction of Inspired Oxygen 07/30/24 16:48 07/30/24 16:55 07/30/24 17:11 Temperature Pulse Rate 104 H 105 H 102 H Respiratory Rate 27 H 28 H 26 H Blood Pressure Pulse Oximetry 97 97 Oxygen Delivery BiPAP Fraction of Inspired Oxygen 07/30/24 17:15 07/30/24 17:15 07/30/24 17:16 Temperature Pulse Rate 103 H 102 H 103 H Respiratory Rate 22 H 26 H 23 H Blood Pressure 120/67 120/67 Pulse Oximetry 97 97 97 Oxygen Delivery Fraction of Inspired Oxygen 07/30/24 17:37 07/30/24 17:45 07/30/24 17:54 Temperature Pulse Rate 103 H 100 Respiratory Rate 28 H 22 H Blood Pressure 139/85 Pulse Oximetry 98 98 98 Oxygen Delivery Fraction of Inspired Oxygen 07/30/24 18:02 07/30/24 18:10 07/30/24 18:39 Temperature Pulse Rate 102 H 100 108 H Respiratory Rate 28 H 16 Blood Pressure Pulse Oximetry 98 97 100 Oxygen Delivery Mechanical Ventilation Fraction of Inspired Oxygen 50 07/30/24 18:57 07/30/24 19:00 07/30/24 19:01 Temperature Pulse Rate 102 H 105 H 104 H Respiratory Rate 16 16 16 Blood Pressure 155/99 H Pulse Oximetry 100 99 99 Oxygen Delivery Fraction of Inspired Oxygen 07/30/24 19:27 07/30/24 20:04 07/30/24 20:20 Temperature Pulse Rate 108 H 111 H 110 H Respiratory Rate 17 16 17 Blood Pressure Pulse Oximetry Oxygen Delivery Fraction of Inspired Oxygen 07/30/24 20:37 07/30/24 20:40 07/30/24 20:51 Temperature Pulse Rate 113 H 107 H Respiratory Rate 17 17 Blood Pressure 162/120 H Pulse Oximetry 96 Oxygen Delivery Mechanical Ventilation Fraction of Inspired Oxygen 50 07/30/24 21:20 07/30/24 21:20 07/30/24 22:00 Temperature Pulse Rate 105 H 106 H 100 Respiratory Rate 16 17 17 Blood Pressure Pulse Oximetry Oxygen Delivery Fraction of Inspired Oxygen 07/30/24 22:23 07/30/24 23:08 07/30/24 23:20 Temperature Pulse Rate 100 97 97 Respiratory Rate 17 17 17 Blood Pressure 118/85 115/81 Pulse Oximetry 96 99 Oxygen Delivery Fraction of Inspired Oxygen 07/30/24 23:35 07/30/24 23:40 07/30/24 23:40 Temperature Pulse Rate 100 91 91 Respiratory Rate 17 20 20 Blood Pressure Pulse Oximetry Oxygen Delivery Fraction of Inspired Oxygen 07/31/24 00:00 07/31/24 00:00 07/31/24 00:00 Temperature Pulse Rate 92 92 91 Respiratory Rate 20 20 Blood Pressure Pulse Oximetry Oxygen Delivery Fraction of Inspired Oxygen 07/31/24 00:00 07/31/24 00:00 07/31/24 00:00 Temperature 98.7 F Pulse Rate 91 Respiratory Rate 20 Blood Pressure 113/68 Pulse Oximetry 100 99 Oxygen Delivery Mechanical Ventilation Fraction of Inspired Oxygen 50 50 07/31/24 00:01 07/31/24 00:30 07/31/24 02:00 Temperature Pulse Rate 101 H 85 79 Respiratory Rate 20 Blood Pressure 106/69 Pulse Oximetry 98 Oxygen Delivery Mechanical Ventilation Fraction of Inspired Oxygen 50 07/31/24 02:00 07/31/24 02:00 07/31/24 02:00 Temperature Pulse Rate 79 79 79 Respiratory Rate 20 20 Blood Pressure 113/84 Pulse Oximetry 98 Oxygen Delivery Fraction of Inspired Oxygen 07/31/24 02:17 07/31/24 02:22 07/31/24 04:00 Temperature Pulse Rate 84 90 Respiratory Rate 20 Blood Pressure Pulse Oximetry 99 98 Oxygen Delivery Mechanical Ventilation Mechanical Ventilation Fraction of Inspired Oxygen 50 50 07/31/24 04:00 07/31/24 04:00 07/31/24 04:00 Temperature 98.3 F Pulse Rate 83 83 83 Respiratory Rate 20 20 Blood Pressure 123/75 Pulse Oximetry 99 Oxygen Delivery Fraction of Inspired Oxygen 07/31/24 04:00 07/31/24 04:00 07/31/24 05:33 Temperature Pulse Rate 83 76 Respiratory Rate 20 Blood Pressure Pulse Oximetry 98 Oxygen Delivery Mechanical Ventilation Fraction of Inspired Oxygen 50 50 07/31/24 05:38 07/31/24 06:00 07/31/24 06:00 Temperature Pulse Rate 73 78 77 Respiratory Rate 20 20 Blood Pressure 114/64 Pulse Oximetry 98 Oxygen Delivery Fraction of Inspired Oxygen 07/31/24 06:00 07/31/24 06:00 07/31/24 08:00 Temperature 97.6 F Pulse Rate 77 77 75 Respiratory Rate 20 20 20 Blood Pressure 130/69 Pulse Oximetry 96 Oxygen Delivery Fraction of Inspired Oxygen 07/31/24 08:00 07/31/24 08:00 07/31/24 08:00 Temperature Pulse Rate 75 75 Respiratory Rate 20 20 Blood Pressure Pulse Oximetry Oxygen Delivery Mechanical Ventilation Fraction of Inspired Oxygen 50 07/31/24 08:00 Temperature Pulse Rate Respiratory Rate Blood Pressure Pulse Oximetry Oxygen Delivery Fraction of Inspired Oxygen 50 Exam 2 Narrative: General: Intubated and sedated in no acute distress HEENT:? Pupils equal and reactive, sclerae is care, ETT in place Neck:? Supple Respiratory:? Clear to auscultation bilaterally, mild rales on the right side, adequate air entry, no wheeze Cardiac:? S1-S2 normal, regular rate and rhythm Abdomen:? Soft, nontender, nondistended, obese, hypoactive bowel sound Extremities:? No edema, palpable pedal pulse Neuro:? Patient is intubated, sedated, opens eyes to name but does not follow simple commands. Does withdraw to pain in all extremities Skin:? No skin lesions noted Psych:? Unable to assess at this time Results Labs 07/31/24 03:40 07/31/24 03:53 Labs: Short CBC 07/30/24 07/31/24 Range/Units 12:30 03:40 WBC 15.5 H 7.7 (4.5-10.0) K/mm3 Hgb 14.7 13.3 (12.0-15.0) g/dL Hct 46.0 41.7 (37.0-47.0) % Plt Count 338 219 (150-375) k/mm3 BMP 07/30/24 07/31/24 12:30 03:53 Sodium 139 138 Potassium 3.7 3.5 Chloride 99 104 Carbon Dioxide 34 H 30 BUN 28 H 26 H Creatinine 0.90 0.80 Glucose 217 H 141 H Calcium 9.6 8.9 Cardiac Enzymes 07/30/24 07/30/24 Range/Units 12:30 22:05 Troponin I 0.307 H* 0.262 H* (0.000-0.034) ng/mL Liver Function 07/30/24 07/31/24 Range/Units 12:30 03:53 Total Bilirubin 1.2 0.7 (0.2-1.3) mg/dL AST 68 H 37 H (14-36) U/L ALT 103 H 69 H (6-35) U/L Alkaline Phosphatase 183 H 145 H (38-126) U/L Albumin 4.0 3.3 L (3.5-5.1) g/dL Urine 07/30/24 Range/Units 22:07 Urine Color Dark yellow (Yellow) Urine Appearance Clear (Clear) Urine pH 6.0 (5.0-9.0) Ur Specific [place] > 1.045 H (1.001-1.035) Urine Protein 2+ H (Negative) mg/dL Urine Glucose (UA) Negative (Negative) mg/dL Quality VTE Prophylaxis VTE prophylaxis: pharmacologic ordered Hospitalist MIPS Advance Care Plan I have confirmed that the patient's Advanced Care Plan is present, code status is documented, or surrogate decision maker is listed in patient medical record.: Yes Medication Reconciliation I have utilized all available resources to obtain, update and review the patients current medications (includes all prescriptions, OTC, herbals, cannabis, and nutritional supplements).: Yes
[2024-07-31] MEDS: PERFLUTREN LIPID MICROSPHERES 1.5 ML VIAL DILUTED TO 10 ML TOTAL VOLUME IV PUSH (10:50)
[2024-07-31 10:57] LABS: Hemoglobin A1C 5.7 % (<5.7)
[2024-07-31 12:01] LABS: Glucose Point of Care 147 mg/dl (65-105)
[2024-07-31] MEDS: FENTANYL 2,500MCG/NS250ML(*CRX 2,500 MCG/250 ML BAG 10 MCG IV CONT (13:05)
--- NOTE | 2024-07-31 13:38 | IVDEFINITY ---
Prior to administration of IV Definity the patient was educated on the risks and benefits of the imaging enhancing agent including potential adverse side effects. The patient verbalized understanding. Allergies were verified. No exclusion criteria were identified and at least one of the following inclusion criteria were met: 1) physician request, 2) patient technically difficult to image (per the [place] [employer] guidelines of two or more segments not discernable within the apical view), or 3) questionable left ventricular function. ?
[2024-07-31] MEDS: VANCOMYCIN 1,500 MG/NS 500 ML 1,500 MG/500 ML BAG 250 MG IVPB (16:21)
--- NOTE | 2024-07-31 17:56 | PCRCNOTE ---
Window of time for administration has passed. See next scheduled administration.
[2024-07-31 18:10] LABS: Glucose Point of Care 160 mg/dl (65-105)
[2024-07-31] MEDS: MIDAZOLAM 100MG/NS 100ML(*CRX) 100 MG/100 ML BAG IV CONT (19:47)
[2024-07-31] MEDS: ATORVASTATIN 10 MG TABLET PO (20:34)
[2024-07-31 23:14] LABS: Glucose Point of Care 200 mg/dl (65-105)
[2024-08-01] VITALS (46 sets, daily range): BP systolic 108–139; BP diastolic 64–86; PULSE 72–98; RESP 15–23; TEMP 36.6–37.5; O2SAT 90–95
[2024-08-01] MEDS: AZITHROMYCIN 500 MG/NS 250 ML 500 MG/250 ML BAG 250 MG IVPB (00:36)
[2024-08-01] MEDS: IPRATROPIUM 0.5 MG/ALBUTEROL SULFATE 2.5 MG AMPUL.NEB 3 ML INHALATION ×4 (04:04→20:17)
[2024-08-01 04:33] LABS: Hematocrit 41.2 % (37.0-47.0); Hemoglobin 13.2 g/dL (12.0-15.0); Mean Corpuscular Hemoglobin 31.2 pg (26-34); Mean Corpuscular Volume 97.4 fl (80-100); Mean Platelet Volume 10.4 fl (7.4-10.4); Platelet Count Result 252 k/mm3 (150-375); Red Blood Count 4.23 M/mm3 (4.2-5.4); Red Cell Distribution Width 13.6 % (11.5-14.5); White Blood Count 11.7 K/mm3 (4.5-10.0)
[2024-08-01 04:51] LABS: Alanine Aminotransferase 55 U/L (6-35); Albumin Level 3.4 g/dL (3.5-5.1); Alkaline Phosphatase 113 U/L (38-126); Anion Gap 0 mmol/L (4-12); Aspartate Amino Transferase 34 U/L (14-36); Bilirubin,Total 0.5 mg/dL (0.2-1.3); Blood Urea Nitrogen 40 mg/dL (7-17); Calcium 9.3 mg/dL (8.4-10.2); Carbon Dioxide 36 mmol/L (22-30); Chloride 108 mmol/L (98-107); Estimated CRCL calculation 60 ml/min; Estimated Glomerular Filt Rate > 60; Glucose 157 mg/dL (65-110); Magnesium 2.6 mg/dL (1.6-2.3); Potassium 3.8 mmol/L (3.4-5.0); Sodium 144 mmol/L (137-145)
[2024-08-01 05:01] LABS: Band Neutrophils Percent 6 % (0-6); Lymphocytes Absolute Manual 1.52 K/mm3 (1.1-4.5); Monocytes Absolute Manual 0.46 K/mm3 (0.1-0.90); Monocytes Percent Manual 4 % (3-9); Neutrophils Absolute Manual 9.71 K/mm3 (1.7-7.2); Neutrophils Percent Manual 77 % (46-73); Platelet Estimate Adequate (Adequate); Total Cells Counted 100
[2024-08-01 05:02] LABS: Anisocytosis 1+; Large Platelets Present; Ovalocytes 1+; Schistocytes None Seen
[2024-08-01 05:03] LABS: CRP 14.7 mg/dL (<1.0)
[2024-08-01] MEDS: methylPREDNISolone SOD SUCC 40 MG VIAL IV PUSH ×3 (05:21→17:15)
[2024-08-01 05:27] LABS: Alveolar/Arterial O2 Gradient 102.5 mmHg; Arterial Blood Gas PEEP 5 cmH2O; Arterial Blood Gas Vent Mode CMV; Arterial Blood Gas Ventilator rate 20 /MIN; Base Excess ABG 5.3 mEq/l (+/-2.0); Carboxyhemoglobin 0.4 % THb (0-2.0); Device VENTILATOR; Fractional Inspired Oxygen 35 %; HCO3 ABG 32.2 mEq/l (22.0-26.0); Modified Allen's Test Pass; Oxygen Saturation ABG 95.3 % (95.0-100.0); Oxyhemoglobin 94.6 % THb (90.0-100.0); PCO2 ABG 57.3 mmHg (35.0-45.0); PO2 ABG 80.4 mmHg (80.0-100.0); Site Drawn RIGHT RADIAL; Total Hemoglobin 13.5 g/dL (12.0-18.0); pH ABG 7.368 (7.350-7.450)
[2024-08-01 05:28] LABS: Arterial Blood Gas Tidal Volume 420 ml
[2024-08-01] MEDS: ACETYLCYSTEINE 20% INHAL SOLN 800 MG/4 ML VIAL 200 MG INHALATION ×3 (07:25→20:17)
[2024-08-01] MEDS: FLUTICASONE/UMECLIDIN/VILANTER 100-62.5-25 MCG ELLIPTA 1 PUFF INHALATION (07:25)
[2024-08-01] MEDS: ALBUTEROL SULFATE NEB 2.5 MG/3 ML INH 15 MG (08:00)
[2024-08-01] MEDS: ALBUTEROL SULFATE NEB 2.5 MG/3 ML INH 15 MG NEBULIZE (08:00)
[2024-08-01] MEDS: PROPOFOL IV EMULSION 100 ML 3.4 MG IV CONT (08:17)
[2024-08-01] MEDS: ENOXAPARIN 40 MG/0.4 ML SYRINGE SUB-Q (08:17)
[2024-08-01] MEDS: PANTOPRAZOLE SODIUM IV 40 MG VIAL IV PUSH (08:17)
[2024-08-01] MEDS: methylPREDNISolone SOD SUCC 125 MG VIAL IV PUSH (08:17)
[2024-08-01] MEDS: MINERAL OIL/WHITE PETROLATUM OINTMENT 1 APPLIC EACH EYE ×2 (08:18→20:00)
--- NOTE | 2024-08-01 08:34 | WPDINTPN ---
Progress Note: A&P Assessment and Plan (1) Acute hypercapnic respiratory failure: Code(s): J96.02 - Acute respiratory failure with hypercapnia Status: Acute Assessment and Plan: 07/30: Patient presented with acute hypoxic and hypercarbic respiratory failure. 07/30: Failed trial of BiPAP in the ER and was intubated -currently on CMV mode of ventilation, peep of 5, 30% FiO2, wean O2 to maintain O2 sats > 90-92%, -continue Solu-Medrol for today, will start weaning tomorrow a.m. -continue ceftriaxone, doxycycline and vancomycin (07/30), will deescalate antibiotics once cultures have resulted -influenza, RSV, COVID negative -sedated with fentanyl and Versed infusion, maintain RASS of 0 to-2, daily SBT and SAT -will add propofol for better sedation and wean fentanyl and Versed infusion to off -patient has thick secretions, will add Mucomyst and Pulmozyme -continue DuoNebs -07/31: Overnight patient had increased peak airway pressures, this morning also peak airway pressures were in the 45-50 range. Ventilator adjusted, decrease respiratory rate, increased tidal volume to maintain adequate minute ventilation (2) Acute exacerbation of chronic obstructive pulmonary disease: Code(s): J44.1 - Chronic obstructive pulmonary disease with (acute) exacerbation Status: Acute Assessment and Plan: As above (3) Pneumonia: Code(s): J18.9 - Pneumonia, unspecified organism Status: Acute Assessment and Plan: Continue antibiotics, bronchodilators -07/30: Blood cultures pending -07/30: Urine cultures pending -07/30: Sputum cultures ordered (4) Diabetes: Code(s): E11.9 - Type 2 diabetes mellitus without complications Status: Acute Assessment and Plan: Continue sliding scale insulin and Accu-Cheks -check hemoglobin A1c (5) Elevated troponin: Code(s): R79.89 - Other specified abnormal findings of blood chemistry Status: Acute Assessment and Plan: Elevated troponin, trending down, likely related to type 2 infarct secondary severe hypoxia as patient was saturating 44% on room air upon arrival of the EMS at her house -there was no complains of chest pain -will obtain echocardiogram to rule out wall motion abnormality (6) Electrolyte abnormality: Code(s): E87.8 - Other disorders of electrolyte and fluid balance, not elsewhere classified Status: Acute Assessment and Plan: Will replace potassium Plan DVT prophylaxis: Lovenox Stress ulcer prophylaxis: Protonix Nutrition: Will start tube feeds today, DC IV fluid Code Status: Full code Critical Care Time Spent: 37 minutes Updated 2 daughters at bedside with patient's condition and plan of care. Answered all the questions Due to a high probability of clinically significant, life threatening deterioration, the patient required my highest level of preparedness to intervene emergently and I personally spent this critical care time directly and personally managing the patient. This critical care time included obtaining a history; examining the patient; pulse oximetry; ordering and review of studies; arranging urgent treatment with development of a management plan; evaluation of patient's response to treatment; frequent reassessment; and discussions with other providers. It was exclusive of separately billable procedures and treating other patients and teaching time. Please see Assessment and Plan section and the rest of the note for further information on patient assessment and treatment This dictation may have been done utilizing a voice recognition system. Attempts have been made to correct errors. However, there may be uncorrected grammatical, spelling, and recognitions errors present. Subjective Date/time seen: 08/01/24 08:34 Interval history: Reason for consult: Hypercapnic respiratory failure requiring intubation in the ER after failing BiPAP, COPD exacerbation, pneumonia 07/30: Intubated 08/01/2024: Patient seen and examined the ICU, remains intubated on CMV mode of ventilation, peep of 5, 30% FiO2. Sedated with fentanyl Versed infusion, patient opens her eyes follows simple commands in her lower extremities. Urine output has been adequate, afebrile, hemodynamically stable. Tolerating tube feeds Overnight patient had elevated peak airway pressures, was lavaged and suctioned out thick secretions with improvement in her peak airway pressures. Review of Systems Review of Systems: ROS unobtainable: Yes unobtainable due to endotracheal tube, unobtainable due to medical condition and unobtainable due to mental status Exam Narrative: General: Intubated and sedated, in mild respiratory distress HEENT:? Pupils equal and reactive, sclerae is care, ETT in place Neck:? Supple Respiratory:? Coarse breath sounds bilaterally, diffuse expiratory wheeze bilaterally, mild rales on the right side, decreased air entry Cardiac:? S1-S2 normal, regular rate and rhythm Abdomen:? Soft, nontender, nondistended, obese, normoactive bowel sound Extremities:? No edema, palpable pedal pulse Neuro:? Patient is intubated, sedated, opens eyes to name and follows simple commands in her lower extremities, not and her upper extremities. Does withdraw to pain in all extremities Skin:? No skin lesions noted Psych:? Unable to assess at this time Objective Data Vital Signs Vital Signs: Vital Signs - 24 hr 07/31/24 10:00 07/31/24 10:00 07/31/24 10:00 Temperature Pulse Rate 83 79 79 Respiratory Rate 20 20 Blood Pressure 123/80 Pulse Oximetry 97 97 Oxygen Delivery Mechanical Ventilation Fraction of Inspired Oxygen 07/31/24 10:00 07/31/24 10:00 07/31/24 12:00 Temperature 97.9 F Pulse Rate 79 79 83 Respiratory Rate 20 20 Blood Pressure 116/72 Pulse Oximetry 92 Oxygen Delivery Fraction of Inspired Oxygen 07/31/24 12:00 07/31/24 12:00 07/31/24 12:00 Temperature Pulse Rate 83 83 75 Respiratory Rate 20 20 Blood Pressure Pulse Oximetry Oxygen Delivery Fraction of Inspired Oxygen 07/31/24 12:00 07/31/24 12:00 07/31/24 12:31 Temperature Pulse Rate 84 Respiratory Rate Blood Pressure Pulse Oximetry 93 Oxygen Delivery Mechanical Ventilation Mechanical Ventilation Fraction of Inspired Oxygen 30 30 30 07/31/24 13:05 07/31/24 14:00 07/31/24 14:00 Temperature Pulse Rate 88 83 90 Respiratory Rate 20 20 20 Blood Pressure Pulse Oximetry Oxygen Delivery Fraction of Inspired Oxygen 07/31/24 14:00 07/31/24 14:00 07/31/24 14:51 Temperature Pulse Rate 90 96 93 Respiratory Rate 16 Blood Pressure 117/71 Pulse Oximetry 94 90 Oxygen Delivery Mechanical Ventilation Fraction of Inspired Oxygen 30 07/31/24 16:00 07/31/24 16:00 07/31/24 16:00 Temperature Pulse Rate 85 85 Respiratory Rate 22 H 22 H Blood Pressure Pulse Oximetry Oxygen Delivery Mechanical Ventilation Fraction of Inspired Oxygen 30 07/31/24 16:00 07/31/24 16:00 07/31/24 16:00 Temperature 98.1 F Pulse Rate 85 85 Respiratory Rate 20 Blood Pressure 118/68 Pulse Oximetry 92 Oxygen Delivery Fraction of Inspired Oxygen 30 07/31/24 17:59 07/31/24 18:00 07/31/24 18:00 Temperature Pulse Rate 89 87 87 Respiratory Rate 20 20 Blood Pressure Pulse Oximetry 94 Oxygen Delivery Mechanical Ventilation Fraction of Inspired Oxygen 30 07/31/24 18:00 07/31/24 18:00 07/31/24 19:47 Temperature Pulse Rate 87 87 92 Respiratory Rate 20 20 Blood Pressure 134/76 Pulse Oximetry 94 Oxygen Delivery Fraction of Inspired Oxygen 07/31/24 19:48 07/31/24 20:00 07/31/24 20:00 Temperature Pulse Rate 96 92 93 Respiratory Rate 20 20 20 Blood Pressure Pulse Oximetry Oxygen Delivery Fraction of Inspired Oxygen 07/31/24 20:00 07/31/24 20:00 07/31/24 20:00 Temperature Pulse Rate 94 94 Respiratory Rate 20 Blood Pressure Pulse Oximetry 93 Oxygen Delivery Mechanical Ventilation Fraction of Inspired Oxygen 30 30 07/31/24 20:00 07/31/24 20:19 07/31/24 20:20 Temperature Pulse Rate 94 93 92 Respiratory Rate 20 20 Blood Pressure 122/79 Pulse Oximetry 92 93 Oxygen Delivery Mechanical Ventilation Fraction of Inspired Oxygen 30 07/31/24 20:30 07/31/24 22:00 07/31/24 22:00 Temperature Pulse Rate 90 90 91 Respiratory Rate 20 20 Blood Pressure 126/78 Pulse Oximetry 93 Oxygen Delivery Fraction of Inspired Oxygen 07/31/24 22:00 07/31/24 22:00 07/31/24 23:05 Temperature Pulse Rate 93 94 89 Respiratory Rate 20 20 Blood Pressure Pulse Oximetry 96 Oxygen Delivery Mechanical Ventilation Fraction of Inspired Oxygen 30 07/31/24 23:21 07/31/24 23:36 08/01/24 00:00 Temperature Pulse Rate 85 92 Respiratory Rate 20 20 Blood Pressure Pulse Oximetry Oxygen Delivery Fraction of Inspired Oxygen 30 08/01/24 00:00 08/01/24 00:00 08/01/24 00:00 Temperature 99.0 F Pulse Rate 92 89 94 Respiratory Rate 20 20 Blood Pressure 125/73 Pulse Oximetry 92 92 Oxygen Delivery Mechanical Ventilation Fraction of Inspired Oxygen 30 08/01/24 00:01 08/01/24 00:01 08/01/24 02:00 Temperature Pulse Rate 90 92 83 Respiratory Rate 20 20 Blood Pressure Pulse Oximetry Oxygen Delivery Fraction of Inspired Oxygen 08/01/24 02:00 08/01/24 02:00 08/01/24 02:05 Temperature Pulse Rate 84 86 86 Respiratory Rate 20 20 Blood Pressure 134/80 Pulse Oximetry 92 90 Oxygen Delivery Mechanical Ventilation Fraction of Inspired Oxygen 30 08/01/24 02:18 08/01/24 04:00 08/01/24 04:00 Temperature 99.5 F Pulse Rate 86 89 Respiratory Rate 20 20 Blood Pressure 135/74 Pulse Oximetry 94 Oxygen Delivery Fraction of Inspired Oxygen 30 08/01/24 04:00 08/01/24 04:00 08/01/24 04:00 Temperature Pulse Rate 89 98 89 Respiratory Rate 20 20 Blood Pressure Pulse Oximetry 94 Oxygen Delivery Mechanical Ventilation Fraction of Inspired Oxygen 30 08/01/24 04:00 08/01/24 04:04 08/01/24 04:12 Temperature Pulse Rate 89 88 86 Respiratory Rate 20 21 H 23 H Blood Pressure Pulse Oximetry Oxygen Delivery Fraction of Inspired Oxygen 08/01/24 05:10 08/01/24 06:00 08/01/24 06:00 Temperature Pulse Rate 87 88 88 Respiratory Rate 20 Blood Pressure 134/86 Pulse Oximetry 94 95 Oxygen Delivery Mechanical Ventilation Fraction of Inspired Oxygen 35 08/01/24 06:00 08/01/24 06:00 08/01/24 07:21 Temperature Pulse Rate 85 90 86 Respiratory Rate 20 20 20 Blood Pressure Pulse Oximetry Oxygen Delivery Fraction of Inspired Oxygen 08/01/24 07:25 08/01/24 07:25 08/01/24 07:35 Temperature Pulse Rate 85 85 87 Respiratory Rate 20 20 Blood Pressure Pulse Oximetry 92 Oxygen Delivery Mechanical Ventilation Fraction of Inspired Oxygen 30 08/01/24 08:00 08/01/24 08:00 08/01/24 08:01 Temperature Pulse Rate 87 87 86 Respiratory Rate 16 20 Blood Pressure Pulse Oximetry 93 Oxygen Delivery Mechanical Ventilation Fraction of Inspired Oxygen 30 08/01/24 08:17 Temperature Pulse Rate 87 Respiratory Rate 16 Blood Pressure Pulse Oximetry Oxygen Delivery Fraction of Inspired Oxygen Intake/Output Intake/Output: Intake & Output 07/29/24 07/30/24 07/31/24 08/01/24 23:59 23:59 23:59 23:59 Intake Total 1243.1 1774.1 944.4 Output Total 1175 450 Balance 1243.1 599.1 494.4 Meds/Results Medications: Active Medications Generic Name Dose Route Start Last Admin Trade Name Freq PRN Reason Stop Dose Admin Acetylcysteine 200 mg 12/24/24 08:00 08/01/24 07:25 Acetylcysteine 20% Inhal Soln 800 Mg/4 Ml Vial INHALATION 200 mg Q6HRT RAISSA Administration Albuterol/Ipratropium 3 ml 07/31/24 00:00 08/01/24 07:25 Ipratropium 0.5 Mg/Albuterol Sulfate 2.5 Mg Ampul.Neb 3 Ml INHALATION 3 ml Q4HRT RAISSA Administration Atorvastatin Calcium 10 mg 07/31/24 21:00 07/31/24 20:34 Atorvastatin 10 Mg Tablet PO 10 mg QHS RAISSA Administration Bisacodyl 10 mg 07/30/24 20:15 Bisacodyl 10 Mg Suppository RECTAL ONCE PRN Constipation Dextrose 12.5 gm 07/31/24 00:46 Dextrose 50% 25 Gm/50 Ml Syringe IV PUSH PRN PRN Hypoglycemia Protocol Enoxaparin Sodium 40 mg 07/31/24 09:00 08/01/24 08:17 Enoxaparin 40 Mg/0.4 Ml Syringe SUB-Q 40 mg DAILY RAISSA Administration Fluticasone/Umeclidinium/Vilanterol 1 puff 07/31/24 09:45 08/01/24 07:25 Fluticasone/Umeclidin/Vilanter 100-62.5-25 Mcg Ellipta INHALATION 1 puff DAILYRT RAISSA Administration Glucagon 1 mg 07/31/24 00:46 Glucagon For Inj 1 Mg Vial IM PRN PRN Hypoglycemia Protocol Glucose 15 gm 07/31/24 00:46 Glucose Oral Gel 15 Gm Of Glucse In 37.5 Gm Tube PO PRN PRN Hypoglycemia Protocol Ceftriaxone Sodium 2 gm in 100 mls @ 200 mls/hr 07/31/24 00:00 07/31/24 23:34 Rocephin 2 Gm/Ns 100 Ml IVPB Infused Q24H RAISSA Infusion Azithromycin 500 mg in 250 mls @ 250 mls/hr 07/31/24 01:00 08/01/24 01:36 Zithromax IVPB Infused Q24H RAISSA Infusion Dextrose 1,000 mls @ 100 mls/hr 07/31/24 00:46 Dextrose 5% 1,000 Ml IVPB PRN PRN Hypoglycemia Protocol Fentanyl Citrate 2,500 mcg in 250 mls @ 10 mls/hr 07/31/24 01:55 08/01/24 06:00 Fentanyl 2,500 Mcg/Ns 250 Ml IV CONT 100 mcg/hr .Q25H RAISSA 10 mls/hr Titration Protocol 100 MCG/HR Vancomycin HCl 1,500 mg in 500 mls @ 250 mls/hr 07/31/24 16:00 07/31/24 19:00 Vancomycin 1,500 Mg/Ns 500 Ml IVPB Infused Q18H RAISSA Infusion Midazolam HCl 100 mg in 100 mls @ 4 mls/hr 07/31/24 19:40 08/01/24 08:01 Versed 100 Mg/Ns 100 Ml IV CONT 4 mg/hr .Q25H RAISSA 4 mls/hr Titration Protocol 4 MG/HR Propofol 100 mls @ 3.402 mls/hr 08/01/24 07:55 08/01/24 08:17 Diprivan IV CONT 5 mcg/kg/min .[id number] RAISSA 3.4 mls/hr Administration Protocol 5 MCG/KG/MIN Insulin Aspart 3 - 6 units 07/31/24 06:00 08/01/24 05:21 Insulin Aspart (*Bkc) 100 Units/Ml SUB-Q Not Given Q6HR [facility] Protocol Magnesium Hydroxide 30 ml 07/30/24 20:15 Magnesium Hydroxide Susp 30 Ml Udc FEED TUBE DAILY PRN Constipation Methylprednisolone Sodium Succinate 40 mg 07/30/24 18:00 08/01/24 05:21 Methylprednisolone Sod Succ 40 Mg Vial IV PUSH 40 mg Q6H RAISSA Administration Midazolam HCl 2 mg 07/30/24 20:27 07/30/24 21:14 Midazolam Hcl (*Crx) 2 Mg/2 Ml Vial IV PUSH 2 mg ONCE PRN Administration Agitation Multi-Ingred Cream/Lotion/Oil/Oint 1 applic 07/31/24 09:00 08/01/24 08:18 Mineral Oil/White Petrolatum Ointment EACH EYE 1 applic Q12HR RAISSA Administration Pantoprazole Sodium 40 mg 07/31/24 09:00 08/01/24 08:17 Pantoprazole Sodium Iv 40 Mg Vial IV PUSH 40 mg DAILY RAISSA Administration Radiology Results: ITS Impressions Chest CTA 07/30/24 16:19 IMPRESSION: Right lung atelectasis including particularly upper and lower lobes; which may be due to malignant or radiation stricture of the right bronchial airways. Consider PET/CT correlation No pulmonary embolism Abdomen X-Ray 07/31/24 05:45 IMPRESSION: 1. Nonobstructive bowel gas pattern. Chest X-Ray 08/01/24 06:01 IMPRESSION: 1. Stable airspace opacities in right perihilar region and right upper lobe, likely radiation pneumonitis. 2. Stable mild airspace opacities in the lower lung zones, likely atelectasis. Labs Labs: Laboratory Results - last 24 hr 07/31/24 07/31/24 07/31/24 03:40 07:53 11:59 WBC RBC Hgb Hct MCV MCH MCHC RDW Plt Count MPV Immature Gran % (Auto) Neut % (Auto) Lymph % (Auto) [place] % (Auto) Eos % (Auto) Baso % (Auto) Lymph # (Auto) [place] # (Auto) Eos # (Auto) Baso # (Auto) Abs Immat Gran (auto) Absolute Neuts (auto) Absolute Nucleated RBC Total Counted Neutrophils % (Manual) Band Neutrophils % Lymphocytes % (Manual) Monocytes % (Manual) Nucleated RBC % Abs Neuts (Manual) Abs Lymphs (Manual) Abs Monocytes (Manual) Platelet Estimate Large Platelets Anisocytosis Ovalocytes Schistocytes Puncture Site ABG pH ABG pCO2 ABG pO2 ABG PO2/FiO2 Ratio ABG HCO3 ABG O2 Saturation ABG O2 Content ABG Base Excess A-a Gradient Oxyhemoglobin Carboxyhemoglobin Methemoglobin Reduced Hemoglobin Total Hemoglobin O2 Delivery Device O2 Liters/Min Minute Volume Vent Rate Vent Mode FiO2 Tidal Volume PEEP Peak Inspir Pressure Pressure Support Sodium Potassium Chloride Carbon Dioxide Anion Gap BUN Creatinine Estim Creat Clear Calc Estimated GFR Glucose POC Capillary Glucose 147 H Hemoglobin A1c 5.7 Calcium Phosphorus Magnesium Total Bilirubin AST ALT Alkaline Phosphatase C-Reactive Protein Total Protein Albumin Influenza A (RT-PCR) Negative Influenza B (RT-PCR) Negative RSV (RT-PCR) Negative SARS-CoV-2 RNA (RT-PCR) Negative 07/31/24 07/31/24 08/01/24 18:06 23:06 04:27 WBC 11.7 H RBC 4.23 Hgb 13.2 Hct 41.2 MCV 97.4 MCH 31.2 MCHC 32.0 RDW 13.6 Plt Count 252 MPV 10.4 Immature Gran % (Auto) Not Reportable Neut % (Auto) Not Reportable Lymph % (Auto) Not Reportable [place] % (Auto) Not Reportable Eos % (Auto) Not Reportable Baso % (Auto) Not Reportable Lymph # (Auto) Not Reportable [place] # (Auto) Not Reportable Eos # (Auto) Not Reportable Baso # (Auto) Not Reportable Abs Immat Gran (auto) Not Reportable Absolute Neuts (auto) Not Reportable Absolute Nucleated RBC Not Reportable Total Counted 100 Neutrophils % (Manual) 77 H Band Neutrophils % 6 Lymphocytes % (Manual) 13.0 L Monocytes % (Manual) 4 Nucleated RBC % Not Reportable Abs Neuts (Manual) 9.71 H Abs Lymphs (Manual) 1.52 Abs Monocytes (Manual) 0.46 Platelet Estimate Adequate Large Platelets Present Anisocytosis 1+ Ovalocytes 1+ Schistocytes None seen Puncture Site ABG pH ABG pCO2 ABG pO2 ABG PO2/FiO2 Ratio ABG HCO3 ABG O2 Saturation ABG O2 Content ABG Base Excess A-a Gradient Oxyhemoglobin Carboxyhemoglobin Methemoglobin Reduced Hemoglobin Total Hemoglobin O2 Delivery Device O2 Liters/Min Minute Volume Vent Rate Vent Mode FiO2 Tidal Volume PEEP Peak Inspir Pressure Pressure Support Sodium 144 Potassium 3.8 Chloride 108 H Carbon Dioxide 36 H Anion Gap 0 L BUN 40 H D Creatinine 0.80 Estim Creat Clear Calc 60 Estimated GFR > 60 Glucose 157 H POC Capillary Glucose 160 H 200 H Hemoglobin A1c Calcium 9.3 Phosphorus 4.0 Magnesium 2.6 H Total Bilirubin 0.5 AST 34 ALT 55 H Alkaline Phosphatase 113 C-Reactive Protein 14.7 H Total Protein 7.0 Albumin 3.4 L Influenza A (RT-PCR) Influenza B (RT-PCR) RSV (RT-PCR) SARS-CoV-2 RNA (RT-PCR) 08/01/24 05:13 WBC RBC Hgb Hct MCV MCH MCHC RDW Plt Count MPV Immature Gran % (Auto) Neut % (Auto) Lymph % (Auto) [place] % (Auto) Eos % (Auto) Baso % (Auto) Lymph # (Auto) [place] # (Auto) Eos # (Auto) Baso # (Auto) Abs Immat Gran (auto) Absolute Neuts (auto) Absolute Nucleated RBC Total Counted Neutrophils % (Manual) Band Neutrophils % Lymphocytes % (Manual) Monocytes % (Manual) Nucleated RBC % Abs Neuts (Manual) Abs Lymphs (Manual) Abs Monocytes (Manual) Platelet Estimate Large Platelets Anisocytosis Ovalocytes Schistocytes Puncture Site Right radial ABG pH 7.368 ABG pCO2 57.3 H ABG pO2 80.4 ABG PO2/FiO2 Ratio 2.30 ABG HCO3 32.2 H ABG O2 Saturation 95.3 ABG O2 Content 18.0 ABG Base Excess 5.3 A-a Gradient 102.5 Oxyhemoglobin 94.6 Carboxyhemoglobin 0.4 Methemoglobin 0.0 Reduced Hemoglobin 5.0 Total Hemoglobin 13.5 O2 Delivery Device Ventilator O2 Liters/Min Not Reportable Minute Volume Not Reportable Vent Rate 20 Vent Mode Cmv FiO2 35 Tidal Volume 420 PEEP 5 Peak Inspir Pressure Not Reportable Pressure Support Not Reportable Sodium Potassium Chloride Carbon Dioxide Anion Gap BUN Creatinine Estim Creat Clear Calc Estimated GFR Glucose POC Capillary Glucose Hemoglobin A1c Calcium Phosphorus Magnesium Total Bilirubin AST ALT Alkaline Phosphatase C-Reactive Protein Total Protein Albumin Influenza A (RT-PCR) Influenza B (RT-PCR) RSV (RT-PCR) SARS-CoV-2 RNA (RT-PCR) Quality VTE Prophylaxis VTE prophylaxis: pharmacologic ordered
[2024-08-01 08:50] LABS: Triglycerides 150 mg/dL (<150)
[2024-08-01 10:27] LABS: Vancomycin Trough 9.3 ug/mL (10.0-20.0)
[2024-08-01] MEDS: DORNASE ALFA INH SOLN 1 MG/ML 2.5 ML AMP 2.5 MG INHALATION ×2 (10:30→20:17)
[2024-08-01] MEDS: VANCOMYCIN 1,500 MG/NS 500 ML 1,500 MG/500 ML BAG 250 MG IVPB ×2 (10:45→22:16)
--- NOTE | 2024-08-01 11:01 | PCNFU ---
Nutrition Follow-Up Complete: Suboptimal Energy Intake as related to mechanical ventilation as evidenced by NPO. Goal: Meet estimated nutritional needs. Patient is progressing towards goal. We will continue current goal. Pt current nutrition is Vital AF 1.2 at 45 ml/hr with protein modular Giancarlo BID. Last recorded weight is 113.4 kg, up from 107.7 kg on admit. Bowel Motility:No BM reported. Labs Reviewed: Mg 2.6, Glu 157, BUN 40, Alb 3.4 Meds Noted: Propofol at 15 mcgs, Fentanyl, Protonix, Lovenox Skin: Deep Tissue-coccyx Additional Notes: Patient remains on mechanical vent. Tube feedings continue to be tolerated of Vital AF 1.2 at 45 ml/hr. Flush 30 ml q 4 hours. Total Nutrition with Giancarlo and propofol infusion: 1618 kcal/80 gm protein/803 ml water. Meeting 100% kcal needs at 15 kcal/kg and 62% protein needs at 1.2-1.4 gm/kg. Giancarlo BID remains for wound healing providing an additional 80 kcal/2.5 g protein/7 gm glutamine/7 gm arginine. Will monitor weight, labs, skin, diet orders, meds every Wednesday and Wednesday.
[2024-08-01 11:56] LABS: Glucose Point of Care 172 mg/dl (65-105)
[2024-08-01] MEDS: FENTANYL 2,500MCG/NS250ML(*CRX 2,500 MCG/250 ML BAG 10 MCG IV CONT (13:48)
[2024-08-01] MEDS: PROPOFOL IV EMULSION 100 ML 23.81 MG IV CONT ×3 (14:41→23:31)
--- NOTE | 2024-08-01 15:43 | P.PNIM_ITS ---
Progress Note: A&P Assessment and Plan (1) Acute hypercapnic respiratory failure: Code(s): J96.02 - Acute respiratory failure with hypercapnia Status: Acute Assessment and Plan: patient intubated and sedated Continue Rocephin, doxycycline adn Vancomycin Continue duonebs continue sedation and weaning per swager operator (2) Acute exacerbation of chronic obstructive pulmonary disease: Code(s): J44.1 - Chronic obstructive pulmonary disease with (acute) exacerbation Status: Acute Assessment and Plan: As above (3) Pneumonia: Code(s): J18.9 - Pneumonia, unspecified organism Status: Acute Assessment and Plan: Continue antibiotics, bronchodilators -07/30: Blood cultures pending -07/30: Urine cultures pending -07/30: Sputum cultures ordered (4) Diabetes: Code(s): E11.9 - Type 2 diabetes mellitus without complications Status: Acute Assessment and Plan: Continue sliding scale insulin and Accu-Cheks -check hemoglobin A1c (5) Elevated troponin: Code(s): R79.89 - Other specified abnormal findings of blood chemistry Status: Acute Assessment and Plan: Elevated troponin, trending down, likely related to type 2 infarct secondary severe hypoxia as patient was saturating 44% on room air upon arrival of the EMS at her house -there was no complains of chest pain -will obtain echocardiogram to rule out wall motion abnormality (6) Electrolyte abnormality: Code(s): E87.8 - Other disorders of electrolyte and fluid balance, not elsewhere classified Status: Acute Assessment and Plan: Will replace potassium Plan DVT prophylaxis: Lovenox Stress ulcer prophylaxis: Protonix Nutrition: tube feeding Code Status: Full code Subjective Date/time seen: 08/01/24 15:43 Interval history: patient still intubated and sedated Review of Systems Review of Systems: ROS unobtainable: Yes unobtainable due to endotracheal tube, unobtainable due to medical condition and unobtainable due to mental status Exam Narrative: General: Intubated and sedated, in mild respiratory distress HEENT:? Pupils equal and reactive, sclerae is care, ETT in place Neck:? Supple Respiratory:? Coarse breath sounds bilaterally, diffuse expiratory wheeze bilaterally, mild rales on the right side, decreased air entry Cardiac:? S1-S2 normal, regular rate and rhythm Abdomen:? Soft, nontender, nondistended, obese, normoactive bowel sound Extremities:? No edema, palpable pedal pulse Neuro:? Patient is intubated, sedated, opens eyes to name and follows simple commands in her lower extremities, not and her upper extremities. Does withdraw to pain in all extremities Skin:? No skin lesions noted Psych:? Unable to assess at this time Objective Data Vital Signs Vital Signs: Vital Signs - 24 hr 07/31/24 16:00 07/31/24 16:00 07/31/24 16:00 Temperature Pulse Rate 85 85 Respiratory Rate 22 H 22 H Blood Pressure Pulse Oximetry Oxygen Delivery Mechanical Ventilation Fraction of Inspired Oxygen 30 07/31/24 16:00 07/31/24 16:00 07/31/24 16:00 Temperature 98.1 F Pulse Rate 85 85 Respiratory Rate 20 Blood Pressure 118/68 Pulse Oximetry 92 Oxygen Delivery Fraction of Inspired Oxygen 30 07/31/24 17:59 07/31/24 18:00 07/31/24 18:00 Temperature Pulse Rate 89 87 87 Respiratory Rate 20 20 Blood Pressure Pulse Oximetry 94 Oxygen Delivery Mechanical Ventilation Fraction of Inspired Oxygen 30 07/31/24 18:00 07/31/24 18:00 07/31/24 19:47 Temperature Pulse Rate 87 87 92 Respiratory Rate 20 20 Blood Pressure 134/76 Pulse Oximetry 94 Oxygen Delivery Fraction of Inspired Oxygen 07/31/24 19:48 07/31/24 20:00 07/31/24 20:00 Temperature Pulse Rate 96 92 93 Respiratory Rate 20 20 20 Blood Pressure Pulse Oximetry Oxygen Delivery Fraction of Inspired Oxygen 07/31/24 20:00 07/31/24 20:00 07/31/24 20:00 Temperature Pulse Rate 94 94 Respiratory Rate 20 Blood Pressure Pulse Oximetry 93 Oxygen Delivery Mechanical Ventilation Fraction of Inspired Oxygen 30 30 07/31/24 20:00 07/31/24 20:19 07/31/24 20:20 Temperature Pulse Rate 94 93 92 Respiratory Rate 20 20 Blood Pressure 122/79 Pulse Oximetry 92 93 Oxygen Delivery Mechanical Ventilation Fraction of Inspired Oxygen 30 07/31/24 20:30 07/31/24 22:00 07/31/24 22:00 Temperature Pulse Rate 90 90 91 Respiratory Rate 20 20 Blood Pressure 126/78 Pulse Oximetry 93 Oxygen Delivery Fraction of Inspired Oxygen 07/31/24 22:00 07/31/24 22:00 07/31/24 23:05 Temperature Pulse Rate 93 94 89 Respiratory Rate 20 20 Blood Pressure Pulse Oximetry 96 Oxygen Delivery Mechanical Ventilation Fraction of Inspired Oxygen 30 07/31/24 23:21 07/31/24 23:36 08/01/24 00:00 Temperature Pulse Rate 85 92 Respiratory Rate 20 20 Blood Pressure Pulse Oximetry Oxygen Delivery Fraction of Inspired Oxygen 30 08/01/24 00:00 08/01/24 00:00 08/01/24 00:00 Temperature 99.0 F Pulse Rate 92 89 94 Respiratory Rate 20 20 Blood Pressure 125/73 Pulse Oximetry 92 92 Oxygen Delivery Mechanical Ventilation Fraction of Inspired Oxygen 30 08/01/24 00:01 08/01/24 00:01 08/01/24 02:00 Temperature Pulse Rate 90 92 83 Respiratory Rate 20 20 Blood Pressure Pulse Oximetry Oxygen Delivery Fraction of Inspired Oxygen 08/01/24 02:00 08/01/24 02:00 08/01/24 02:05 Temperature Pulse Rate 84 86 86 Respiratory Rate 20 20 Blood Pressure 134/80 Pulse Oximetry 92 90 Oxygen Delivery Mechanical Ventilation Fraction of Inspired Oxygen 30 08/01/24 02:18 08/01/24 04:00 08/01/24 04:00 Temperature 99.5 F Pulse Rate 86 89 Respiratory Rate 20 20 Blood Pressure 135/74 Pulse Oximetry 94 Oxygen Delivery Fraction of Inspired Oxygen 30 08/01/24 04:00 08/01/24 04:00 08/01/24 04:00 Temperature Pulse Rate 89 98 89 Respiratory Rate 20 20 Blood Pressure Pulse Oximetry 94 Oxygen Delivery Mechanical Ventilation Fraction of Inspired Oxygen 30 08/01/24 04:00 08/01/24 04:04 08/01/24 04:12 Temperature Pulse Rate 89 88 86 Respiratory Rate 20 21 H 23 H Blood Pressure Pulse Oximetry Oxygen Delivery Fraction of Inspired Oxygen 08/01/24 05:10 08/01/24 06:00 08/01/24 06:00 Temperature Pulse Rate 87 88 88 Respiratory Rate 20 Blood Pressure 134/86 Pulse Oximetry 94 95 Oxygen Delivery Mechanical Ventilation Fraction of Inspired Oxygen 35 08/01/24 06:00 08/01/24 06:00 08/01/24 07:21 Temperature Pulse Rate 85 90 86 Respiratory Rate 20 20 20 Blood Pressure Pulse Oximetry Oxygen Delivery Fraction of Inspired Oxygen 08/01/24 07:25 08/01/24 07:25 08/01/24 07:35 Temperature Pulse Rate 85 85 87 Respiratory Rate 20 20 Blood Pressure Pulse Oximetry 92 Oxygen Delivery Mechanical Ventilation Fraction of Inspired Oxygen 30 08/01/24 08:00 08/01/24 08:00 08/01/24 08:00 Temperature Pulse Rate 87 87 86 Respiratory Rate 16 20 Blood Pressure Pulse Oximetry 93 Oxygen Delivery Mechanical Ventilation Fraction of Inspired Oxygen 30 08/01/24 08:00 08/01/24 08:00 08/01/24 08:00 Temperature 97.9 F Pulse Rate 86 88 Respiratory Rate 16 Blood Pressure 139/80 Pulse Oximetry 93 Oxygen Delivery Mechanical Ventilation Fraction of Inspired Oxygen 30 08/01/24 08:00 08/01/24 08:01 08/01/24 08:17 Temperature Pulse Rate 86 87 Respiratory Rate 20 16 Blood Pressure Pulse Oximetry Oxygen Delivery Fraction of Inspired Oxygen 30 08/01/24 08:42 08/01/24 08:48 08/01/24 08:48 Temperature Pulse Rate 88 86 86 Respiratory Rate 16 16 16 Blood Pressure Pulse Oximetry Oxygen Delivery Fraction of Inspired Oxygen 08/01/24 09:20 08/01/24 09:20 08/01/24 10:00 Temperature Pulse Rate 84 83 74 Respiratory Rate 16 16 Blood Pressure Pulse Oximetry 93 Oxygen Delivery Mechanical Ventilation Fraction of Inspired Oxygen 30 08/01/24 10:00 08/01/24 10:00 08/01/24 10:00 Temperature Pulse Rate 74 74 74 Respiratory Rate 16 16 16 Blood Pressure 115/70 Pulse Oximetry 93 Oxygen Delivery Fraction of Inspired Oxygen 08/01/24 10:00 08/01/24 10:09 08/01/24 10:30 Temperature Pulse Rate 74 72 86 Respiratory Rate 16 16 Blood Pressure Pulse Oximetry Oxygen Delivery Fraction of Inspired Oxygen 08/01/24 10:40 08/01/24 11:35 08/01/24 12:00 Temperature 98.4 F Pulse Rate 87 73 82 Respiratory Rate 16 16 16 Blood Pressure 108/74 Pulse Oximetry 95 Oxygen Delivery Fraction of Inspired Oxygen 08/01/24 12:00 08/01/24 12:00 08/01/24 12:00 Temperature Pulse Rate 82 82 Respiratory Rate 16 16 Blood Pressure Pulse Oximetry Oxygen Delivery Fraction of Inspired Oxygen 30 08/01/24 12:00 08/01/24 12:00 08/01/24 12:00 Temperature Pulse Rate 82 82 Respiratory Rate 16 Blood Pressure Pulse Oximetry Oxygen Delivery Mechanical Ventilation Fraction of Inspired Oxygen 30 08/01/24 13:15 08/01/24 13:15 08/01/24 13:23 Temperature Pulse Rate 91 91 98 Respiratory Rate 16 16 Blood Pressure Pulse Oximetry 92 Oxygen Delivery Mechanical Ventilation Fraction of Inspired Oxygen 30 08/01/24 13:25 08/01/24 13:48 08/01/24 13:48 Temperature Pulse Rate 87 89 89 Respiratory Rate 16 16 16 Blood Pressure Pulse Oximetry Oxygen Delivery Fraction of Inspired Oxygen 08/01/24 13:49 08/01/24 14:00 08/01/24 14:00 Temperature Pulse Rate 88 88 88 Respiratory Rate 16 16 Blood Pressure 132/77 Pulse Oximetry 93 Oxygen Delivery Fraction of Inspired Oxygen 08/01/24 14:06 08/01/24 14:19 08/01/24 14:41 Temperature Pulse Rate 89 84 80 Respiratory Rate 16 16 16 Blood Pressure Pulse Oximetry Oxygen Delivery Fraction of Inspired Oxygen 08/01/24 14:41 Temperature Pulse Rate 80 Respiratory Rate 16 Blood Pressure Pulse Oximetry Oxygen Delivery Fraction of Inspired Oxygen Intake/Output Intake/Output: Intake & Output 07/29/24 07/30/24 07/31/24 08/01/24 23:59 23:59 23:59 23:59 Intake Total 1243.1 1774.1 1100.6 Output Total 1175 450 Balance 1243.1 599.1 650.6 Meds/Results Medications: Active Medications Generic Name Dose Route Start Last Admin Trade Name Freq PRN Reason Stop Dose Admin Acetylcysteine 200 mg 08/01/24 08:00 08/01/24 13:15 Acetylcysteine 20% Inhal Soln 800 Mg/4 Ml Vial INHALATION 200 mg Q6HRT RAISSA Administration Albuterol/Ipratropium 3 ml 08/01/24 14:00 08/01/24 13:15 Ipratropium 0.5 Mg/Albuterol Sulfate 2.5 Mg Ampul.Neb 3 Ml INHALATION 3 ml Q6HRT RAISSA Administration Atorvastatin Calcium 10 mg 07/31/24 21:00 07/31/24 20:34 Atorvastatin 10 Mg Tablet PO 10 mg QHS RAISSA Administration Bisacodyl 10 mg 07/30/24 20:15 Bisacodyl 10 Mg Suppository RECTAL ONCE PRN Constipation Dextrose 12.5 gm 07/31/24 00:46 Dextrose 50% 25 Gm/50 Ml Syringe IV PUSH PRN PRN Hypoglycemia Protocol Dornase Gerald 2.5 mg 08/01/24 08:00 08/01/24 10:30 Dornase Gerald Inh Soln 1 Mg/Ml 2.5 Ml Amp INHALATION 08/04/24 07:59 2.5 mg Q12HRT RAISSA Administration Enoxaparin Sodium 40 mg 07/31/24 09:00 08/01/24 08:17 Enoxaparin 40 Mg/0.4 Ml Syringe SUB-Q 40 mg DAILY RAISSA Administration Fluticasone/Umeclidinium/Vilanterol 1 puff 07/31/24 09:45 08/01/24 07:25 Fluticasone/Umeclidin/Vilanter 100-62.5-25 Mcg Ellipta INHALATION 1 puff DAILYRT RAISSA Administration Glucagon 1 mg 07/31/24 00:46 Glucagon For Inj 1 Mg Vial IM PRN PRN Hypoglycemia Protocol Glucose 15 gm 07/31/24 00:46 Glucose Oral Gel 15 Gm Of Glucse In 37.5 Gm Tube PO PRN PRN Hypoglycemia Protocol Ceftriaxone Sodium 2 gm in 100 mls @ 200 mls/hr 07/31/24 00:00 07/31/24 23:34 Rocephin 2 Gm/Ns 100 Ml IVPB Infused Q24H RAISSA Infusion Azithromycin 500 mg in 250 mls @ 250 mls/hr 07/31/24 01:00 08/01/24 01:36 Zithromax IVPB Infused Q24H RAISSA Infusion Dextrose 1,000 mls @ 100 mls/hr 07/31/24 00:46 Dextrose 5% 1,000 Ml IVPB PRN PRN Hypoglycemia Protocol Fentanyl Citrate 2,500 mcg in 250 mls @ 10 mls/hr 07/31/24 01:55 08/01/24 13:48 Fentanyl 2,500 Mcg/Ns 250 Ml IV CONT 100 mcg/hr .Q25H RAISSA 10 mls/hr Administration Protocol 100 MCG/HR Midazolam HCl 100 mg in 100 mls @ 0 mls/hr 07/31/24 19:40 08/01/24 12:00 Versed 100 Mg/Ns 100 Ml IV CONT 0 mg/hr .Q0M RAISSA 0 mls/hr Titration Protocol Propofol 100 mls @ 23.814 mls/hr 08/01/24 07:55 08/01/24 14:41 Diprivan IV CONT 35 mcg/kg/min .Q4H12M RAISSA 23.81 mls/hr Administration Protocol 35 MCG/KG/MIN Vancomycin HCl 1,500 mg in 500 mls @ 250 mls/hr 08/01/24 11:00 08/01/24 10:45 Vancomycin 1,500 Mg/Ns 500 Ml IVPB 250 mls/hr Q12H RAISSA Administration Insulin Aspart 3 - 6 units 07/31/24 06:00 08/01/24 11:54 Insulin Aspart (*Bkc) 100 Units/Ml SUB-Q Not Given Q6HR RAISSA Protocol Magnesium Hydroxide 30 ml 07/30/24 20:15 Magnesium Hydroxide Susp 30 Ml Udc FEED TUBE DAILY PRN Constipation Methylprednisolone Sodium Succinate 40 mg 07/30/24 18:00 08/01/24 12:49 Methylprednisolone Sod Succ 40 Mg Vial IV PUSH 40 mg Q6H RAISSA Administration Midazolam HCl 2 mg 07/30/24 20:27 07/30/24 21:14 Midazolam Hcl (*Crx) 2 Mg/2 Ml Vial IV PUSH 2 mg ONCE PRN Administration Agitation Multi-Ingred Cream/Lotion/Oil/Oint 1 applic 07/31/24 09:00 08/01/24 08:18 Mineral Oil/White Petrolatum Ointment EACH EYE 1 applic Q12HR RAISSA Administration Pantoprazole Sodium 40 mg 07/31/24 09:00 08/01/24 08:17 Pantoprazole Sodium Iv 40 Mg Vial IV PUSH 40 mg DAILY RAISSA Administration Radiology Results: ITS Impressions Chest CTA 07/30/24 16:19 IMPRESSION: Right lung atelectasis including particularly upper and lower lobes; which may be due to malignant or radiation stricture of the right bronchial airways. Consider PET/CT correlation No pulmonary embolism Abdomen X-Ray 07/31/24 05:45 IMPRESSION: 1. Nonobstructive bowel gas pattern. Chest X-Ray 08/01/24 06:01 IMPRESSION: 1. Stable airspace opacities in right perihilar region and right upper lobe, likely radiation pneumonitis. 2. Stable mild airspace opacities in the lower lung zones, likely atelectasis. Labs Labs: Laboratory Results - last 24 hr 07/31/24 07/31/24 08/01/24 18:06 23:06 04:20 WBC RBC Hgb Hct MCV MCH MCHC RDW Plt Count MPV Immature Gran % (Auto) Neut % (Auto) Lymph % (Auto) [place] % (Auto) Eos % (Auto) Baso % (Auto) Lymph # (Auto) [place] # (Auto) Eos # (Auto) Baso # (Auto) Abs Immat Gran (auto) Absolute Neuts (auto) Absolute Nucleated RBC Total Counted Neutrophils % (Manual) Band Neutrophils % Lymphocytes % (Manual) Monocytes % (Manual) Nucleated RBC % Abs Neuts (Manual) Abs Lymphs (Manual) Abs Monocytes (Manual) Platelet Estimate Large Platelets Anisocytosis Ovalocytes Schistocytes Puncture Site ABG pH ABG pCO2 ABG pO2 ABG PO2/FiO2 Ratio ABG HCO3 ABG O2 Saturation ABG O2 Content ABG Base Excess A-a Gradient Oxyhemoglobin Carboxyhemoglobin Methemoglobin Reduced Hemoglobin Total Hemoglobin O2 Delivery Device O2 Liters/Min Minute Volume Vent Rate Vent Mode FiO2 Tidal Volume PEEP Peak Inspir Pressure Pressure Support Sodium Potassium Chloride Carbon Dioxide Anion Gap BUN Creatinine Estim Creat Clear Calc Estimated GFR Glucose POC Capillary Glucose 160 H 200 H Calcium Phosphorus Magnesium Total Bilirubin AST ALT Alkaline Phosphatase C-Reactive Protein Total Protein Albumin Triglycerides 150 Vancomycin Trough 08/01/24 08/01/24 08/01/24 04:27 05:13 09:08 WBC 11.7 H RBC 4.23 Hgb 13.2 Hct 41.2 MCV 97.4 MCH 31.2 MCHC 32.0 RDW 13.6 Plt Count 252 MPV 10.4 Immature Gran % (Auto) Not Reportable Neut % (Auto) Not Reportable Lymph % (Auto) Not Reportable [place] % (Auto) Not Reportable Eos % (Auto) Not Reportable Baso % (Auto) Not Reportable Lymph # (Auto) Not Reportable [place] # (Auto) Not Reportable Eos # (Auto) Not Reportable Baso # (Auto) Not Reportable Abs Immat Gran (auto) Not Reportable Absolute Neuts (auto) Not Reportable Absolute Nucleated RBC Not Reportable Total Counted 100 Neutrophils % (Manual) 77 H Band Neutrophils % 6 Lymphocytes % (Manual) 13.0 L Monocytes % (Manual) 4 Nucleated RBC % Not Reportable Abs Neuts (Manual) 9.71 H Abs Lymphs (Manual) 1.52 Abs Monocytes (Manual) 0.46 Platelet Estimate Adequate Large Platelets Present Anisocytosis 1+ Ovalocytes 1+ Schistocytes None seen Puncture Site Right radial ABG pH 7.368 ABG pCO2 57.3 H ABG pO2 80.4 ABG PO2/FiO2 Ratio 2.30 ABG HCO3 32.2 H ABG O2 Saturation 95.3 ABG O2 Content 18.0 ABG Base Excess 5.3 A-a Gradient 102.5 Oxyhemoglobin 94.6 Carboxyhemoglobin 0.4 Methemoglobin 0.0 Reduced Hemoglobin 5.0 Total Hemoglobin 13.5 O2 Delivery Device Ventilator O2 Liters/Min Not Reportable Minute Volume Not Reportable Vent Rate 20 Vent Mode Cmv FiO2 35 Tidal Volume 420 PEEP 5 Peak Inspir Pressure Not Reportable Pressure Support Not Reportable Sodium 144 Potassium 3.8 Chloride 108 H Carbon Dioxide 36 H Anion Gap 0 L BUN 40 H D Creatinine 0.80 Estim Creat Clear Calc 60 Estimated GFR > 60 Glucose 157 H POC Capillary Glucose Calcium 9.3 Phosphorus 4.0 Magnesium 2.6 H Total Bilirubin 0.5 AST 34 ALT 55 H Alkaline Phosphatase 113 C-Reactive Protein 14.7 H Total Protein 7.0 Albumin 3.4 L Triglycerides Vancomycin Trough 9.3 L 08/01/24 11:52 WBC RBC Hgb Hct MCV MCH MCHC RDW Plt Count MPV Immature Gran % (Auto) Neut % (Auto) Lymph % (Auto) [place] % (Auto) Eos % (Auto) Baso % (Auto) Lymph # (Auto) [place] # (Auto) Eos # (Auto) Baso # (Auto) Abs Immat Gran (auto) Absolute Neuts (auto) Absolute Nucleated RBC Total Counted Neutrophils % (Manual) Band Neutrophils % Lymphocytes % (Manual) Monocytes % (Manual) Nucleated RBC % Abs Neuts (Manual) Abs Lymphs (Manual) Abs Monocytes (Manual) Platelet Estimate Large Platelets Anisocytosis Ovalocytes Schistocytes Puncture Site ABG pH ABG pCO2 ABG pO2 ABG PO2/FiO2 Ratio ABG HCO3 ABG O2 Saturation ABG O2 Content ABG Base Excess A-a Gradient Oxyhemoglobin Carboxyhemoglobin Methemoglobin Reduced Hemoglobin Total Hemoglobin O2 Delivery Device O2 Liters/Min Minute Volume Vent Rate Vent Mode FiO2 Tidal Volume PEEP Peak Inspir Pressure Pressure Support Sodium Potassium Chloride Carbon Dioxide Anion Gap BUN Creatinine Estim Creat Clear Calc Estimated GFR Glucose POC Capillary Glucose 172 H Calcium Phosphorus Magnesium Total Bilirubin AST ALT Alkaline Phosphatase C-Reactive Protein Total Protein Albumin Triglycerides Vancomycin Trough Quality VTE Prophylaxis VTE prophylaxis: pharmacologic ordered
[2024-08-01 17:19] LABS: Glucose Point of Care 193 mg/dl (65-105)
[2024-08-01] MEDS: ATORVASTATIN 10 MG TABLET PO (20:00)
[2024-08-02] VITALS (57 sets, daily range): BP systolic 93–155; BP diastolic 50–92; PULSE 54–105; RESP 16–30; TEMP 36.8–37.2; O2SAT 90–96
[2024-08-02 00:12] LABS: Glucose Point of Care 184 mg/dl (65-105)
[2024-08-02] MEDS: methylPREDNISolone SOD SUCC 40 MG VIAL IV PUSH ×5 (00:32→23:40)
[2024-08-02] MEDS: cefTRIAXone 2 GM/NS 100 ML 2 GM/100 ML BAG IVPB ×2 (00:32→23:39)
[2024-08-02] MEDS: AZITHROMYCIN 500 MG/NS 250 ML 500 MG/250 ML BAG 250 MG IVPB (01:13)
[2024-08-02] MEDS: IPRATROPIUM 0.5 MG/ALBUTEROL SULFATE 2.5 MG AMPUL.NEB 3 ML INHALATION ×4 (02:39→20:01)
[2024-08-02] MEDS: ACETYLCYSTEINE 20% INHAL SOLN 800 MG/4 ML VIAL 200 MG INHALATION ×4 (02:39→20:01)
--- NOTE | 2024-08-02 03:10 | ECG_ITS ---
Test Date: 2024-08-02 03:17:50 Measurements Intervals [place] Rate: 100 P: 61 [place]: 153 QRS: -11 QRSD: 133 T: -70 QT: 375 QTc: 484 Interpretive Statements SINUS TACHYCARDIA WITH FREQUENT SUPRAVENTRICULAR PREMATURE COMPLEXES RIGHT BUNDLE BRANCH BLOCK t wave abnormalitites Compared to ECG 07/30/2024 21:46:43 premature beats are new Electronically Signed On 08-02-2024 13:42:05 TELETYPESETTER MONITOR by Rogers Shepherd M.D.
[2024-08-02 03:40] LABS: Hematocrit 42.5 % (37.0-47.0); Mean Corpuscular HGB Conc 30.6 g/dl (32-36); Mean Corpuscular Hemoglobin 30.5 pg (26-34); Mean Corpuscular Volume 99.8 fl (80-100); Mean Platelet Volume 10.4 fl (7.4-10.4); Platelet Count Result 259 k/mm3 (150-375); Red Blood Count 4.26 M/mm3 (4.2-5.4); Red Cell Distribution Width 13.8 % (11.5-14.5); White Blood Count 14.5 K/mm3 (4.5-10.0)
[2024-08-02] MEDS: PROPOFOL IV EMULSION 100 ML 30.62 MG IV CONT ×3 (03:44→12:16)
[2024-08-02 03:52] LABS: Alanine Aminotransferase 51 U/L (6-35); Albumin Level 3.3 g/dL (3.5-5.1); Alkaline Phosphatase 117 U/L (38-126); Anion Gap 1 mmol/L (4-12); Aspartate Amino Transferase 34 U/L (14-36); Bilirubin,Total 0.5 mg/dL (0.2-1.3); Blood Urea Nitrogen 46 mg/dL (7-17); Calcium 9.2 mg/dL (8.4-10.2); Carbon Dioxide 32 mmol/L (22-30); Chloride 108 mmol/L (98-107); Estimated CRCL calculation 62 ml/min; Estimated Glomerular Filt Rate > 60; Glucose 188 mg/dL (65-110); Magnesium 2.6 mg/dL (1.6-2.3); Potassium 4.2 mmol/L (3.4-5.0); Sodium 141 mmol/L (137-145)
[2024-08-02 04:09] LABS: Band Neutrophils Percent 5 % (0-6); Monocytes Absolute Manual 0.43 K/mm3 (0.1-0.90); Monocytes Percent Manual 3 % (3-9); Neutrophils Absolute Manual 11.16 K/mm3 (1.7-7.2); Neutrophils Percent Manual 72 % (46-73); Nucleated Red Blood Cells 1 %; Total Cells Counted 100
[2024-08-02 04:10] LABS: Anisocytosis 1+; Platelet Estimate Adequate (Adequate); Schistocytes None Seen
[2024-08-02 05:53] LABS: Alveolar/Arterial O2 Gradient 75.7 mmHg; Base Excess ABG 2.1 mEq/l (+/-2.0); Carboxyhemoglobin 0.6 % THb (0-2.0); Device VENTILATOR; Fractional Inspired Oxygen 30 %; HCO3 ABG 28.3 mEq/l (22.0-26.0); Methemoglobin ABG 0.1 %THb (0-1.5); Modified Allen's Test Pass; Oxygen Saturation ABG 95.2 % (95.0-100.0); Oxyhemoglobin 94.7 % THb (90.0-100.0); PCO2 ABG 50.3 mmHg (35.0-45.0); PO2 ABG 79.1 mmHg (80.0-100.0); PO2 FiO2 Ratio Arterial Blood 2.64 %; Reduced Hemoglobin 4.6 %THb (0-5.0); Site Drawn RIGHT RADIAL; Total Hemoglobin 13.5 g/dL (12.0-18.0); pH ABG 7.368 (7.350-7.450)
[2024-08-02 05:54] LABS: Arterial Blood Gas PEEP 5 cmH2O; Arterial Blood Gas Tidal Volume 480 ml; Arterial Blood Gas Vent Mode CMV; Arterial Blood Gas Ventilator rate 16 /MIN
[2024-08-02 05:56] LABS: Glucose Point of Care 161 mg/dl (65-105)
[2024-08-02] MEDS: MINERAL OIL/WHITE PETROLATUM OINTMENT 1 APPLIC EACH EYE ×2 (08:03→20:31)
[2024-08-02] MEDS: PANTOPRAZOLE SODIUM IV 40 MG VIAL IV PUSH (08:03)
[2024-08-02] MEDS: ENOXAPARIN 40 MG/0.4 ML SYRINGE SUB-Q (08:03)
[2024-08-02] MEDS: DORNASE ALFA INH SOLN 1 MG/ML 2.5 ML AMP 2.5 MG INHALATION ×2 (08:04→20:01)
[2024-08-02] MEDS: MIDAZOLAM HCL (*CRX) 2 MG/2 ML VIAL 4 MG IV PUSH (08:40)
[2024-08-02] MEDS: PROPOFOL IV EMULSION 100 ML 34.02 MG IV CONT (09:07)
--- NOTE | 2024-08-02 10:38 | WPDPROCEDUR ---
Procedures Central Line Placement Right IJ: Central Line Date: 08/02/24 Central Line Time: 08:45 Discussed w/ the patient/family/POA,the placement of a central venous catheter, including its clinical necessity/indication & associated potential risks, benifits and alternatives.: Yes The patient/family/POA understand(s) and acknowledge(s) the need to proceed with central venous catheter insertion as an important element of the patient's clinical management.: Yes Consent: I have discussed with the patient and/or surrogate, the non-emergent placement of a central venous catheter, including its clinical necessity/indication and associated potential risks and complications. The patient and/or surrogate understand(s) and acknowledge(s) the need to proceed with central venous catheter insertion as an important element of the patient's clinical management. Time Out Performed: Yes Patient Position: supine Patient placed on monitor/pulse ox: Yes Provider Prep: mask, sterile gown, sterile gloves, Max. sterile barrier precautions and hand hygiene with conventional soap/water or alcohol based hand rub Central line prep: 2% Chlorhexidine scrub Local anesthesia used: lidocaine 1% Amount of anesthesia used (ml): 3 Sterile US Technique with sterile gel/sterile probe covers: Yes Central line lumen inserted: triple Bengali: 12 Length (cm): 16 Depth of Insertion (cm): 16 Post Procedure: sutured in place, good blood return, all ports aspirated, flushed, capped, transparent dressing, hemostatic product, antimicrobial product, securement product and aseptic technique maintained throughout procedure Post procedure x-ray: tip of catheter in good position and no pneumothorax seen Complications: none
[2024-08-02 12:03] LABS: Glucose Point of Care 169 mg/dl (65-105)
[2024-08-02] MEDS: VANCOMYCIN 1,500 MG/NS 500 ML 1,500 MG/500 ML BAG 250 MG IVPB ×2 (12:17→23:39)
[2024-08-02] MEDS: FENTANYL 2,500MCG/NS250ML(*CRX 2,500 MCG/250 ML BAG 12.5 MCG IV CONT (13:22)
[2024-08-02] MEDS: CENTRAL LINE FLUSH 10 ML IV PUSH ×2 (13:25→20:44)
--- NOTE | 2024-08-02 13:55 | P.PNINT_ITS ---
Progress Note: A&P Assessment and Plan (1) Acute hypercapnic respiratory failure: Code(s): J96.02 - Acute respiratory failure with hypercapnia Status: Acute Assessment and Plan: 07/30: Patient presented with acute hypoxic and hypercarbic respiratory failure. 07/30: Failed trial of BiPAP in the ER and was intubated -currently on CMV mode of ventilation, peep of 5, 30% FiO2, wean O2 to maintain O2 sats > 90-92%, -continue Solu-Medrol for today, will start weaning tomorrow a.m. -continue ceftriaxone, doxycycline and vancomycin (07/30), will deescalate antibiotics once cultures have resulted -influenza, RSV, COVID negative -sedated with fentanyl and Versed infusion, maintain RASS of 0 to-2, daily SBT and SAT -will add propofol for better sedation and wean fentanyl and Versed infusion to off -patient has thick secretions, will add Mucomyst and Pulmozyme -continue DuoNebs -08/02: FiO2 of 30% and PEEP of 5. Continues to have thick [place] secretions for which she is already on Mucomyst and Pulmozyme, continue (2) Acute exacerbation of chronic obstructive pulmonary disease: Code(s): J44.1 - Chronic obstructive pulmonary disease with (acute) exacerbation Status: Acute Assessment and Plan: As above (3) Pneumonia: Code(s): J18.9 - Pneumonia, unspecified organism Status: Acute Assessment and Plan: Continue antibiotics, bronchodilators -07/30: Preliminary blood cultures are negative times -07/30: Urine cultures are negative -07/30: Sputum cultures negative so far (4) Diabetes: Code(s): E11.9 - Type 2 diabetes mellitus without complications Status: Acute Assessment and Plan: Continue sliding scale insulin and Accu-Cheks -check hemoglobin A1c 5.7 this admission (5) Elevated troponin: Code(s): R79.89 - Other specified abnormal findings of blood chemistry Status: Acute Assessment and Plan: Elevated troponin, trending down, likely related to type 2 infarct secondary severe hypoxia as patient was saturating 44% on room air upon arrival of the EMS at her house -there was no complains of chest pain -will have Cardiology evaluate for severely reduced systolic function. 08/01: Echocardiogram ummary 1. Very technically difficult study with limited views. 2. The left ventricle grossly appears normal size and systolic function in the available and technically difficult views that were obtained in this study. 3. The right ventricle appears dilated with severely reduced systolic function in the available and technically difficult views that were obtained in this study. 4. Dilated inferior vena cava with <50% collapse upon inspiration consistent with significantly elevated right atrial pressure, 15 mmHg. (6) Electrolyte abnormality: Code(s): E87.8 - Other disorders of electrolyte and fluid balance, not elsewhere classified Status: Acute Assessment and Plan: Potassium and magnesium normalized after replacement yesterday Plan DVT prophylaxis: Lovenox Stress ulcer prophylaxis: Protonix Nutrition: Continues tube feeds and tolerating Code Status: Full code Critical Care Time Spent: 34 minutes Discussed with spouse and daughter in rounds and updated them with patient's condition and plan of care. I did try to than that she is not requiring much oxygen from the ventilator but she has significant thick h[place] secretions which could be likely due to pneumonia or COPD exacerbation. Patient is on bronchodilators, it did discuss radiology and other lab reports with them I answered all questions Due to a high probability of clinically significant, life threatening deterioration, the patient required my highest level of preparedness to intervene emergently and I personally spent this critical care time directly and personally managing the patient. This critical care time included obtaining a history; examining the patient; pulse oximetry; ordering and review of studies; arranging urgent treatment with development of a management plan; evaluation of patient's response to treatment; frequent reassessment; and discussions with other providers. It was exclusive of separately billable procedures and treating other patients and teaching time. Please see Assessment and Plan section and the rest of the note for further information on patient assessment and treatment This dictation may have been done utilizing a voice recognition system. Attempts have been made to correct errors. However, there may be uncorrected grammatical, spelling, and recognitions errors present. Subjective Date/time seen: 08/02/24 13:55 Interval history: Reason for consult: Hypercapnic respiratory failure requiring intubation in the ER after failing BiPAP, COPD exacerbation, pneumonia 07/30: Intubated 08/02/2024: Patient seen examined the ICU, remains intubated on CMV mode of ventilation, peep of 5, 30% FiO2 . Patient is sedated with fentanyl in propofol infusion. Urine output has been adequate, afebrile, hemodynamically stable, patient does not open eyes or follow simple commands. Continues to have thick secretions from a ETT. Tolerating tube feeds Review of Systems Review of Systems: ROS unobtainable: Yes unobtainable due to endotracheal tube, unobtainable due to medical condition and unobtainable due to mental status Exam Narrative: General: Intubated and sedated, in mild respiratory distress HEENT:? Pupils equal and reactive, sclerae is care, ETT in place Neck:? Supple Respiratory:? Coarse breath sounds bilaterally, diffuse expiratory wheeze bilaterally, mild rales on the right side, decreased air entry Cardiac:? S1-S2 normal, regular rate and rhythm Abdomen:? Soft, nontender, nondistended, obese, normoactive bowel sound Extremities:? No edema, palpable pedal pulse Neuro:? Patient is intubated, sedated, opens eyes to name does not follow simple commands this morning, she Does withdraw to pain in all extremities Skin:? No skin lesions noted Psych:? Unable to assess at this time Objective Data Vital Signs Vital Signs: Vital Signs - 24 hr 08/01/24 14:00 08/01/24 14:00 08/01/24 14:00 Temperature Pulse Rate 88 88 88 Respiratory Rate 16 16 Blood Pressure 132/77 Pulse Oximetry 93 Oxygen Delivery Fraction of Inspired Oxygen 08/01/24 14:00 08/01/24 14:06 08/01/24 14:19 Temperature Pulse Rate 88 89 84 Respiratory Rate 16 16 16 Blood Pressure Pulse Oximetry Oxygen Delivery Fraction of Inspired Oxygen 08/01/24 14:41 08/01/24 14:41 08/01/24 15:55 Temperature Pulse Rate 80 80 89 Respiratory Rate 16 16 Blood Pressure Pulse Oximetry 93 Oxygen Delivery Mechanical Ventilation Fraction of Inspired Oxygen 30 08/01/24 16:00 08/01/24 16:00 08/01/24 16:00 Temperature Pulse Rate 77 77 77 Respiratory Rate 16 16 16 Blood Pressure Pulse Oximetry Oxygen Delivery Fraction of Inspired Oxygen 08/01/24 16:00 08/01/24 16:00 08/01/24 16:00 Temperature 98.3 F Pulse Rate 77 Respiratory Rate 16 Blood Pressure 108/65 Pulse Oximetry 92 Oxygen Delivery Mechanical Ventilation Fraction of Inspired Oxygen 30 30 08/01/24 16:00 08/01/24 18:00 08/01/24 18:00 Temperature Pulse Rate 77 78 78 Respiratory Rate 16 Blood Pressure 118/67 Pulse Oximetry 92 Oxygen Delivery Fraction of Inspired Oxygen 08/01/24 18:00 08/01/24 18:00 08/01/24 18:00 Temperature Pulse Rate 78 78 78 Respiratory Rate 16 16 16 Blood Pressure Pulse Oximetry Oxygen Delivery Fraction of Inspired Oxygen 08/01/24 19:06 08/01/24 19:06 08/01/24 20:00 Temperature Pulse Rate 76 76 Respiratory Rate 16 16 Blood Pressure Pulse Oximetry 92 Oxygen Delivery Mechanical Ventilation Fraction of Inspired Oxygen 30 08/01/24 20:00 08/01/24 20:00 08/01/24 20:00 Temperature 98.3 F Pulse Rate 74 74 Respiratory Rate 18 Blood Pressure 116/64 Pulse Oximetry 92 Oxygen Delivery Fraction of Inspired Oxygen 30 08/01/24 20:00 08/01/24 20:00 08/01/24 20:00 Temperature Pulse Rate 74 74 83 Respiratory Rate 18 18 18 Blood Pressure Pulse Oximetry Oxygen Delivery Fraction of Inspired Oxygen 08/01/24 20:17 08/01/24 20:17 08/01/24 20:23 Temperature Pulse Rate 80 80 84 Respiratory Rate 16 16 Blood Pressure Pulse Oximetry 93 Oxygen Delivery Mechanical Ventilation Fraction of Inspired Oxygen 30 08/01/24 20:54 08/01/24 22:00 08/01/24 22:00 Temperature Pulse Rate 84 83 83 Respiratory Rate 15 18 Blood Pressure Pulse Oximetry Oxygen Delivery Fraction of Inspired Oxygen 08/01/24 22:00 08/01/24 22:00 08/01/24 23:27 Temperature Pulse Rate 83 83 76 Respiratory Rate 18 16 Blood Pressure 118/66 Pulse Oximetry 90 94 Oxygen Delivery Mechanical Ventilation Fraction of Inspired Oxygen 30 08/01/24 23:31 08/01/24 23:31 08/01/24 23:53 Temperature Pulse Rate 73 73 76 Respiratory Rate 16 16 17 Blood Pressure Pulse Oximetry Oxygen Delivery Fraction of Inspired Oxygen 08/02/24 00:00 08/02/24 00:00 08/02/24 00:00 Temperature Pulse Rate 74 74 Respiratory Rate 16 16 Blood Pressure Pulse Oximetry 93 Oxygen Delivery Mechanical Ventilation Fraction of Inspired Oxygen 30 08/02/24 00:00 08/02/24 00:00 08/02/24 00:00 Temperature 98.5 F Pulse Rate 74 77 Respiratory Rate 19 Blood Pressure 139/77 Pulse Oximetry 93 Oxygen Delivery Fraction of Inspired Oxygen 30 08/02/24 00:04 08/02/24 02:00 08/02/24 02:00 Temperature Pulse Rate 74 81 81 Respiratory Rate 16 21 H Blood Pressure 143/77 H Pulse Oximetry 94 Oxygen Delivery Fraction of Inspired Oxygen 08/02/24 02:00 08/02/24 02:00 08/02/24 02:25 Temperature Pulse Rate 81 81 92 Respiratory Rate 16 16 26 H Blood Pressure Pulse Oximetry Oxygen Delivery Fraction of Inspired Oxygen 08/02/24 02:26 08/02/24 02:30 08/02/24 02:39 Temperature Pulse Rate 93 94 87 Respiratory Rate 26 H 30 H Blood Pressure Pulse Oximetry 94 Oxygen Delivery Mechanical Ventilation Fraction of Inspired Oxygen 30 08/02/24 02:39 08/02/24 02:44 08/02/24 02:51 Temperature Pulse Rate 87 90 96 Respiratory Rate 16 22 H 24 H Blood Pressure Pulse Oximetry Oxygen Delivery Fraction of Inspired Oxygen 08/02/24 03:08 08/02/24 03:32 08/02/24 03:44 Temperature Pulse Rate 97 97 95 Respiratory Rate 23 H 16 16 Blood Pressure Pulse Oximetry Oxygen Delivery Fraction of Inspired Oxygen 08/02/24 03:44 08/02/24 04:00 08/02/24 04:00 Temperature Pulse Rate 95 91 91 Respiratory Rate 16 16 16 Blood Pressure Pulse Oximetry Oxygen Delivery Fraction of Inspired Oxygen 08/02/24 04:00 08/02/24 04:00 08/02/24 04:00 Temperature Pulse Rate 90 Respiratory Rate Blood Pressure Pulse Oximetry 91 Oxygen Delivery Mechanical Ventilation Fraction of Inspired Oxygen 30 30 08/02/24 04:00 08/02/24 05:35 08/02/24 06:00 Temperature 98.8 F Pulse Rate 90 90 99 Respiratory Rate 16 Blood Pressure 139/74 Pulse Oximetry 91 96 Oxygen Delivery Mechanical Ventilation Fraction of Inspired Oxygen 30 08/02/24 06:00 08/02/24 06:00 08/02/24 06:00 Temperature Pulse Rate 98 98 99 Respiratory Rate 19 16 16 Blood Pressure 155/83 H Pulse Oximetry 96 Oxygen Delivery Fraction of Inspired Oxygen 08/02/24 06:14 08/02/24 07:08 08/02/24 07:08 Temperature Pulse Rate 96 93 93 Respiratory Rate 22 H 18 18 Blood Pressure Pulse Oximetry Oxygen Delivery Fraction of Inspired Oxygen 08/02/24 08:00 08/02/24 08:00 08/02/24 08:00 Temperature 98.2 F Pulse Rate 105 H 94 94 Respiratory Rate 24 H 22 H 22 H Blood Pressure 149/92 H Pulse Oximetry 90 Oxygen Delivery Fraction of Inspired Oxygen 08/02/24 08:00 08/02/24 08:00 08/02/24 08:00 Temperature Pulse Rate 90 Respiratory Rate Blood Pressure Pulse Oximetry 94 Oxygen Delivery Mechanical Ventilation Fraction of Inspired Oxygen 30 30 08/02/24 08:09 08/02/24 08:09 08/02/24 08:19 Temperature Pulse Rate 93 93 97 Respiratory Rate 16 16 Blood Pressure Pulse Oximetry 94 Oxygen Delivery Mechanical Ventilation Fraction of Inspired Oxygen 30 08/02/24 08:20 08/02/24 08:45 08/02/24 08:45 Temperature Pulse Rate 93 95 95 Respiratory Rate 16 23 H 23 H Blood Pressure Pulse Oximetry Oxygen Delivery Fraction of Inspired Oxygen 08/02/24 09:07 08/02/24 09:07 08/02/24 09:47 Temperature Pulse Rate 78 78 68 Respiratory Rate 16 16 16 Blood Pressure Pulse Oximetry Oxygen Delivery Fraction of Inspired Oxygen 08/02/24 09:48 08/02/24 10:00 08/02/24 11:30 Temperature Pulse Rate 68 65 65 Respiratory Rate 16 16 Blood Pressure Pulse Oximetry Oxygen Delivery Fraction of Inspired Oxygen 08/02/24 11:30 08/02/24 12:00 08/02/24 12:00 Temperature 98.3 F Pulse Rate 65 61 64 Respiratory Rate 16 16 Blood Pressure 104/56 L Pulse Oximetry 93 Oxygen Delivery Fraction of Inspired Oxygen 08/02/24 12:00 08/02/24 12:00 08/02/24 12:15 Temperature Pulse Rate 65 Respiratory Rate Blood Pressure Pulse Oximetry 92 92 Oxygen Delivery Mechanical Ventilation Mechanical Ventilation Fraction of Inspired Oxygen 30 30 30 08/02/24 12:16 08/02/24 12:16 08/02/24 13:22 Temperature Pulse Rate 64 64 56 L Respiratory Rate 16 16 16 Blood Pressure Pulse Oximetry Oxygen Delivery Fraction of Inspired Oxygen 08/02/24 13:24 Temperature Pulse Rate 59 L Respiratory Rate 16 Blood Pressure Pulse Oximetry Oxygen Delivery Fraction of Inspired Oxygen Intake/Output Intake/Output: Intake & Output 07/30/24 07/31/24 08/01/24 08/02/24 23:59 23:59 23:59 23:59 Intake Total 1243.1 1774.1 2510.3 2142.8 Output Total 1175 950 550 Balance 1243.1 599.1 1560.3 1592.8 Meds/Results Medications: Active Medications Generic Name Dose Route Start Last Admin Trade Name Freq PRN Reason Stop Dose Admin Acetylcysteine 200 mg 08/01/24 08:00 08/02/24 08:04 Acetylcysteine 20% Inhal Soln 800 Mg/4 Ml Vial INHALATION 200 mg Q6HRT RAISSA Administration Albuterol/Ipratropium 3 ml 08/01/24 14:00 08/02/24 08:04 Ipratropium 0.5 Mg/Albuterol Sulfate 2.5 Mg Ampul.Neb 3 Ml INHALATION 3 ml Q6HRT RAISSA Administration Atorvastatin Calcium 10 mg 07/31/24 21:00 08/01/24 20:00 Atorvastatin 10 Mg Tablet PO 10 mg QHS RAISSA Administration Bisacodyl 10 mg 07/30/24 20:15 Bisacodyl 10 Mg Suppository RECTAL ONCE PRN Constipation Dextrose 12.5 gm 07/31/24 00:46 Dextrose 50% 25 Gm/50 Ml Syringe IV PUSH PRN PRN Hypoglycemia Protocol Dornase Gerald 2.5 mg 08/01/24 08:00 08/02/24 08:04 Dornase Gerald Inh Soln 1 Mg/Ml 2.5 Ml Amp INHALATION 08/04/24 07:59 2.5 mg Q12HRT RAISSA Administration Enoxaparin Sodium 40 mg 07/31/24 09:00 08/02/24 08:03 Enoxaparin 40 Mg/0.4 Ml Syringe SUB-Q 40 mg DAILY RAISSA Administration Fluticasone/Umeclidinium/Vilanterol 1 puff 07/31/24 09:45 08/01/24 07:25 Fluticasone/Umeclidin/Vilanter 100-62.5-25 Mcg Ellipta INHALATION 1 puff DAILYRT RAISSA Administration Glucagon 1 mg 07/31/24 00:46 Glucagon For Inj 1 Mg Vial IM PRN PRN Hypoglycemia Protocol Glucose 15 gm 07/31/24 00:46 Glucose Oral Gel 15 Gm Of Glucse In 37.5 Gm Tube PO PRN PRN Hypoglycemia Protocol Ceftriaxone Sodium 2 gm in 100 mls @ 200 mls/hr 07/31/24 00:00 08/02/24 01:02 Rocephin 2 Gm/Ns 100 Ml IVPB Infused Q24H RAISSA Infusion Azithromycin 500 mg in 250 mls @ 250 mls/hr 07/31/24 01:00 08/02/24 01:13 Zithromax IVPB 250 mls/hr Q24H RAISSA Administration Dextrose 1,000 mls @ 100 mls/hr 07/31/24 00:46 Dextrose 5% 1,000 Ml IVPB PRN PRN Hypoglycemia Protocol Fentanyl Citrate 2,500 mcg in 250 mls @ 12.5 mls/hr 07/31/24 01:55 08/02/24 13:24 Fentanyl 2,500 Mcg/Ns 250 Ml IV CONT Not Given .Q20H RAISSA Protocol 125 MCG/HR Propofol 100 mls @ 27.216 mls/hr 08/01/24 07:55 08/02/24 13:24 Diprivan IV CONT 40 mcg/kg/min .Q3H41M RAISSA 27.22 mls/hr Titration Protocol 40 MCG/KG/MIN Vancomycin HCl 1,500 mg in 500 mls @ 250 mls/hr 08/01/24 11:00 08/02/24 12:17 Vancomycin 1,500 Mg/Ns 500 Ml IVPB 250 mls/hr Q12H RAISSA Administration Insulin Aspart 3 - 6 units 07/31/24 06:00 08/02/24 12:18 Insulin Aspart (*Bkc) 100 Units/Ml SUB-Q Not Given Q6HR RAISSA Protocol Magnesium Hydroxide 30 ml 07/30/24 20:15 Magnesium Hydroxide Susp 30 Ml Udc FEED TUBE DAILY PRN Constipation Methylprednisolone Sodium Succinate 40 mg 07/30/24 18:00 08/02/24 12:18 Methylprednisolone Sod Succ 40 Mg Vial IV PUSH 40 mg Q6H RAISSA Administration Midazolam HCl 2 mg 07/30/24 20:27 07/30/24 21:14 Midazolam Hcl (*Crx) 2 Mg/2 Ml Vial IV PUSH 2 mg ONCE PRN Administration Agitation Multi-Ingred Cream/Lotion/Oil/Oint 1 applic 07/31/24 09:00 08/02/24 08:03 Mineral Oil/White Petrolatum Ointment EACH EYE 1 applic Q12HR RAISSA Administration Pantoprazole Sodium 40 mg 07/31/24 09:00 08/02/24 08:03 Pantoprazole Sodium Iv 40 Mg Vial IV PUSH 40 mg DAILY RAISSA Administration Polyethylene Glycol 17 gm 08/02/24 11:00 Polyethylene Glycol 3350 17 Gm Powd.Pack PO QAM PRN Constipation Senna/Docusate Sodium 1 tab 08/02/24 21:00 Senna/Docusate Sodium Tablet PO HS RAISSA Sodium Chloride 10 ml 08/02/24 14:00 08/02/24 13:25 Central Line Flush IV PUSH 10 ml Q8HR RAISSA Administration Sodium Chloride 20 ml 08/02/24 09:06 Central Line Flush IV PUSH PRN PRN after blood draws Radiology Results: ITS Impressions Chest CTA 07/30/24 16:19 IMPRESSION: Right lung atelectasis including particularly upper and lower lobes; which may be due to malignant or radiation stricture of the right bronchial airways. Consider PET/CT correlation No pulmonary embolism Abdomen X-Ray 07/31/24 05:45 IMPRESSION: 1. Nonobstructive bowel gas pattern. Chest X-Ray 08/02/24 08:57 IMPRESSION: Right internal jugular central venous catheter in good position and ready for immediate use. Otherwise stable radiographic evaluation of the chest, with redemonstration of supportive devices (in good radiographic position) and post treatment change within the right upper lobe and right hilum. Labs Labs: Laboratory Results - last 24 hr 08/01/24 08/01/24 08/02/24 17:14 23:51 03:28 WBC 14.5 H RBC 4.26 Hgb 13.0 Hct 42.5 MCV 99.8 MCH 30.5 MCHC 30.6 L RDW 13.8 Plt Count 259 MPV 10.4 Immature Gran % (Auto) Not Reportable Neut % (Auto) Not Reportable Lymph % (Auto) Not Reportable [place] % (Auto) Not Reportable Eos % (Auto) Not Reportable Baso % (Auto) Not Reportable Lymph # (Auto) Not Reportable [place] # (Auto) Not Reportable Eos # (Auto) Not Reportable Baso # (Auto) Not Reportable Abs Immat Gran (auto) Not Reportable Absolute Neuts (auto) Not Reportable Absolute Nucleated RBC Not Reportable Total Counted 100 Neutrophils % (Manual) 72 Band Neutrophils % 5 Lymphocytes % (Manual) 20.0 Monocytes % (Manual) 3 Nucleated RBC % Not Reportable Abs Neuts (Manual) 11.16 H Abs Lymphs (Manual) 2.90 Abs Monocytes (Manual) 0.43 Nucleated RBCs 1 Platelet Estimate Adequate Anisocytosis 1+ Schistocytes None seen Puncture Site ABG pH ABG pCO2 ABG pO2 ABG PO2/FiO2 Ratio ABG HCO3 ABG O2 Saturation ABG O2 Content ABG Base Excess A-a Gradient Oxyhemoglobin Carboxyhemoglobin Methemoglobin Reduced Hemoglobin Total Hemoglobin O2 Delivery Device O2 Liters/Min Minute Volume Vent Rate Vent Mode FiO2 Tidal Volume PEEP Peak Inspir Pressure Pressure Support Sodium 141 Potassium 4.2 Chloride 108 H Carbon Dioxide 32 H Anion Gap 1 L BUN 46 H Creatinine 0.80 Estim Creat Clear Calc 62 Estimated GFR > 60 Glucose 188 H POC Capillary Glucose 193 H 184 H Calcium 9.2 Phosphorus 4.0 Magnesium 2.6 H Total Bilirubin 0.5 AST 34 ALT 51 H Alkaline Phosphatase 117 Total Protein 7.0 Albumin 3.3 L 08/02/24 08/02/24 08/02/24 05:37 05:44 12:01 WBC RBC Hgb Hct MCV MCH MCHC RDW Plt Count MPV Immature Gran % (Auto) Neut % (Auto) Lymph % (Auto) [place] % (Auto) Eos % (Auto) Baso % (Auto) Lymph # (Auto) [place] # (Auto) Eos # (Auto) Baso # (Auto) Abs Immat Gran (auto) Absolute Neuts (auto) Absolute Nucleated RBC Total Counted Neutrophils % (Manual) Band Neutrophils % Lymphocytes % (Manual) Monocytes % (Manual) Nucleated RBC % Abs Neuts (Manual) Abs Lymphs (Manual) Abs Monocytes (Manual) Nucleated RBCs Platelet Estimate Anisocytosis Schistocytes Puncture Site Right radial ABG pH 7.368 ABG pCO2 50.3 H ABG pO2 79.1 L ABG PO2/FiO2 Ratio 2.64 ABG HCO3 28.3 H ABG O2 Saturation 95.2 ABG O2 Content 18.0 ABG Base Excess 2.1 A-a Gradient 75.7 Oxyhemoglobin 94.7 Carboxyhemoglobin 0.6 Methemoglobin 0.1 Reduced Hemoglobin 4.6 Total Hemoglobin 13.5 O2 Delivery Device Ventilator O2 Liters/Min Not Reportable Minute Volume Not Reportable Vent Rate 16 Vent Mode Cmv FiO2 30 Tidal Volume 480 PEEP 5 Peak Inspir Pressure Not Reportable Pressure Support Not Reportable Sodium Potassium Chloride Carbon Dioxide Anion Gap BUN Creatinine Estim Creat Clear Calc Estimated GFR Glucose POC Capillary Glucose 161 H 169 H Calcium Phosphorus Magnesium Total Bilirubin AST ALT Alkaline Phosphatase Total Protein Albumin Quality VTE Prophylaxis VTE prophylaxis: pharmacologic ordered
[2024-08-02] MEDS: PROPOFOL IV EMULSION 100 ML 23.81 MG IV CONT (14:50)
[2024-08-02] MEDS: INSULIN ASPART (*BKC) 100 UNITS/ML SUB-Q (17:34)
[2024-08-02 17:43] LABS: Glucose Point of Care 208 mg/dl (65-105)
[2024-08-02] MEDS: SENNA/DOCUSATE SODIUM TABLET 1 TAB PO (20:29)
[2024-08-02] MEDS: ATORVASTATIN 10 MG TABLET PO (20:30)
[2024-08-02] MEDS: PROPOFOL IV EMULSION 100 ML 17.01 MG IV CONT (20:54)
[2024-08-02 23:24] LABS: Vancomycin Trough 16.2 ug/mL (10.0-20.0)
[2024-08-02 23:51] LABS: Glucose Point of Care 173 mg/dl (65-105)
[2024-08-03] VITALS (37 sets, daily range): BP systolic 95–139; BP diastolic 48–68; PULSE 55–100; RESP 16–20; TEMP 36.4–37.9; O2SAT 86–97
[2024-08-03] MEDS: AZITHROMYCIN 500 MG/NS 250 ML 500 MG/250 ML BAG 250 MG IVPB (01:27)
[2024-08-03] MEDS: PROPOFOL IV EMULSION 100 ML 17.01 MG IV CONT ×5 (01:30→23:12)
[2024-08-03] MEDS: IPRATROPIUM 0.5 MG/ALBUTEROL SULFATE 2.5 MG AMPUL.NEB 3 ML INHALATION ×4 (02:53→20:45)
[2024-08-03] MEDS: ACETYLCYSTEINE 20% INHAL SOLN 800 MG/4 ML VIAL 200 MG INHALATION ×3 (02:53→20:44)
[2024-08-03 04:44] LABS: Hematocrit 38.9 % (37.0-47.0); Hemoglobin 12.1 g/dL (12.0-15.0); Mean Corpuscular HGB Conc 31.1 g/dl (32-36); Mean Corpuscular Hemoglobin 30.8 pg (26-34); Mean Platelet Volume 10.4 fl (7.4-10.4); Platelet Count Result 220 k/mm3 (150-375); Red Blood Count 3.93 M/mm3 (4.2-5.4); White Blood Count 10.7 K/mm3 (4.5-10.0)
[2024-08-03 04:55] LABS: Triglycerides 182 mg/dL (<150)
[2024-08-03 04:57] LABS: Alanine Aminotransferase 62 U/L (6-35); Alkaline Phosphatase 84 U/L (38-126); Anion Gap -2 mmol/L (4-12); Aspartate Amino Transferase 46 U/L (14-36); Bilirubin,Total 0.4 mg/dL (0.2-1.3); Blood Urea Nitrogen 42 mg/dL (7-17); Carbon Dioxide 35 mmol/L (22-30); Chloride 109 mmol/L (98-107); Estimated CRCL calculation 70 ml/min; Estimated Glomerular Filt Rate > 60; Glucose 183 mg/dL (65-110); Magnesium 2.5 mg/dL (1.6-2.3); Phosphorus 3.7 mg/dL (2.5-4.5); Potassium 4.2 mmol/L (3.4-5.0); Sodium 142 mmol/L (137-145)
[2024-08-03 05:09] LABS: Base Excess ABG 2.1 mEq/l (+/-2.0); Carboxyhemoglobin 0.3 % THb (0-2.0); Fractional Inspired Oxygen 30 %; HCO3 ABG 26.9 mEq/l (22.0-26.0); Methemoglobin ABG 0.1 %THb (0-1.5); Oxygen Content ABG 17.1 %vol (16.0-22.0); Oxygen Saturation ABG 93.5 % (95.0-100.0); PCO2 ABG 42.6 mmHg (35.0-45.0); PO2 ABG 66.8 mmHg (80.0-100.0); PO2 FiO2 Ratio Arterial Blood 2.23 %; Reduced Hemoglobin 7.6 %THb (0-5.0); Total Hemoglobin 13.2 g/dL (12.0-18.0); pH ABG 7.418 (7.350-7.450)
[2024-08-03 05:11] LABS: Arterial Blood Gas PEEP 5 cmH2O; Arterial Blood Gas Vent Mode CMV; Arterial Blood Gas Ventilator rate 16 /MIN; Device VENTILATOR; Modified Allen's Test Pass; Site Drawn RIGHT RADIAL
[2024-08-03 05:12] LABS: Arterial Blood Gas Tidal Volume 480 ml
[2024-08-03 05:23] LABS: Band Neutrophils Percent 2 % (0-6); Lymphocytes Absolute Manual 1.49 K/mm3 (1.1-4.5); Monocytes Absolute Manual 0.64 K/mm3 (0.1-0.90); Monocytes Percent Manual 6 % (3-9); Neutrophils Absolute Manual 8.56 K/mm3 (1.7-7.2); Neutrophils Percent Manual 78 % (46-73); Nucleated Red Blood Cells 2 %; Total Cells Counted 100
[2024-08-03 05:24] LABS: Large Platelets Present; Ovalocytes 1+; Platelet Estimate Adequate (Adequate); Schistocytes None Seen
[2024-08-03] MEDS: methylPREDNISolone SOD SUCC 40 MG VIAL IV PUSH ×3 (05:30→17:47)
[2024-08-03 06:02] LABS: Glucose Point of Care 164 mg/dl (65-105)
[2024-08-03] MEDS: DORNASE ALFA INH SOLN 1 MG/ML 2.5 ML AMP 2.5 MG INHALATION ×2 (08:20→20:45)
[2024-08-03] MEDS: PANTOPRAZOLE SODIUM IV 40 MG VIAL IV PUSH (08:23)
[2024-08-03] MEDS: ENOXAPARIN 40 MG/0.4 ML SYRINGE SUB-Q (08:23)
[2024-08-03] MEDS: FUROSEMIDE INJ 40 MG/4 ML VIAL IV PUSH (08:23)
[2024-08-03] MEDS: MINERAL OIL/WHITE PETROLATUM OINTMENT 1 APPLIC EACH EYE ×2 (08:23→20:28)
[2024-08-03] MEDS: CENTRAL LINE FLUSH 10 ML IV PUSH ×3 (08:29→20:28)
--- NOTE | 2024-08-03 08:52 | P.PNINT_ITS ---
Progress Note: A&P Assessment and Plan (1) Acute hypercapnic respiratory failure: Code(s): J96.02 - Acute respiratory failure with hypercapnia Status: Acute Assessment and Plan: 07/30: Patient presented with acute hypoxic and hypercarbic respiratory failure. 07/30: Failed trial of BiPAP in the ER and was intubated -currently on CMV mode of ventilation, peep of 5, 30% FiO2, wean O2 to maintain O2 sats > 90-92%, -patient continues to wheeze, continue Solu-Medrol for now -continue ceftriaxone, doxycycline (07/30) -discontinue vancomycin (08/03) -influenza, RSV, COVID negative -sedated with fentanyl propofol infusion, maintain RASS of 0 to-2, daily SBT and SAT -patient has thick secretions, continue Mucomyst and Pulmozyme -continue DuoNebs -08/03: FiO2 of 30% and PEEP of 5. Continues to have thick [place] secretions for which she is already on Mucomyst and Pulmozyme. Will consult pulmonology for bronchoscopy for BAL culture (2) Acute exacerbation of chronic obstructive pulmonary disease: Code(s): J44.1 - Chronic obstructive pulmonary disease with (acute) exacerbation Status: Acute Assessment and Plan: Continue bronchodilators, steroids and antibiotics, currently on mechanical ventilation (3) Pneumonia: Code(s): J18.9 - Pneumonia, unspecified organism Status: Acute Assessment and Plan: Continue antibiotics, bronchodilators -07/30: Preliminary blood cultures are negative x2 -07/30: Urine cultures are negative -08/01: Sputum cultures no growth so far (4) Diabetes: Code(s): E11.9 - Type 2 diabetes mellitus without complications Status: Acute Assessment and Plan: Continue sliding scale insulin and Accu-Cheks -hemoglobin A1c 5.7 this admission (5) Elevated troponin: Code(s): R79.89 - Other specified abnormal findings of blood chemistry Status: Acute Assessment and Plan: Elevated troponin, trending down, likely related to type 2 infarct secondary severe hypoxia as patient was saturating 44% on room air upon arrival of the EMS at her house -there was no complains of chest pain -consult for severely reduced systolic function. Will await recommendations -started on Lasix, 08/01: Echocardiogram ummary 1. Very technically difficult study with limited views. 2. The left ventricle grossly appears normal size and systolic function in the available and technically difficult views that were obtained in this study. 3. The right ventricle appears dilated with severely reduced systolic function in the available and technically difficult views that were obtained in this study. 4. Dilated inferior vena cava with <50% collapse upon inspiration consistent with significantly elevated right atrial pressure, 15 mmHg. (6) Electrolyte abnormality: Code(s): E87.8 - Other disorders of electrolyte and fluid balance, not elsewhere classified Status: Acute Assessment and Plan: Potassium and magnesium normalized after replacement yesterday Plan DVT prophylaxis: Lovenox Stress ulcer prophylaxis: Protonix Nutrition: Tolerating tube feeds, continue Code Status: Full code Critical Care Time Spent: 33 minutes Discussed with spouse and daughter in rounds and updated them with patient's condition and plan of care. Will discuss with them regarding having pulmonology evaluate the patient and possible bronchoscopy for thick secretions. I discussed radiology and lab reports with the patient's family, answered the questions Due to a high probability of clinically significant, life threatening deterioration, the patient required my highest level of preparedness to intervene emergently and I personally spent this critical care time directly and personally managing the patient. This critical care time included obtaining a history; examining the patient; pulse oximetry; ordering and review of studies; arranging urgent treatment with development of a management plan; evaluation of patient's response to treatment; frequent reassessment; and discussions with other providers. It was exclusive of separately billable procedures and treating other patients and teaching time. Please see Assessment and Plan section and the rest of the note for further information on patient assessment and treatment This dictation may have been done utilizing a voice recognition system. Attempts have been made to correct errors. However, there may be uncorrected grammatical, spelling, and recognitions errors present. Subjective Date/time seen: 08/03/24 08:52 Interval history: Reason for consult: Hypercapnic respiratory failure requiring intubation in the ER after failing BiPAP, COPD exacerbation, pneumonia 07/30: Intubated 08/03/2024: Patient seen and examined the ICU, remains intubated on CMV mode of ventilation for, peep of 5, 30% FiO2. Sedated with fentanyl and propofol infusion. Patient does not open her eyes or follow simple commands. Continues to have thick secretions from ET tube despite being on Pulmozyme and Mucomyst nebs along with bronchodilators. Urine output has been adequate, patient has been afebrile and hemodynamically stable. Tolerating tube feeds, no bowel movements Review of Systems Review of Systems: ROS unobtainable: Yes unobtainable due to endotracheal tub e, unobtainable due to medical condition and unobtainable due to mental status Exam Narrative: General: Intubated and sedated, in mild respiratory distress HEENT:? Pupils equal and reactive, sclerae is care, ETT in place Neck:? Supple Respiratory:? Coarse breath sounds bilaterally, diffuse expiratory wheeze more o n right this morning, mild rales on the right side, decreased air entry Cardiac:? S1-S2 normal, regular rate and rhythm Abdomen:? Soft, nontender, nondistended, obese, normoactive bowel sound Extremities:? No edema, palpable pedal pulse Neuro:? Patient is intubated, sedated, does not open her eyes or follow simple commands this morning, withdraws to pain in all extremities Skin:? No skin lesions noted Psych:? Unable to assess at this time Objective Data Vital Signs Vital Signs: Vital Signs - 24 hr 08/02/24 09:07 08/02/24 09:07 08/02/24 09:47 Temperature Pulse Rate 78 78 68 Respiratory Rate 16 16 16 Blood Pressure Pulse Oximetry Oxygen Delivery Fraction of Inspired Oxygen 08/02/24 09:48 08/02/24 10:00 08/02/24 11:30 Temperature Pulse Rate 68 65 65 Respiratory Rate 16 16 Blood Pressure Pulse Oximetry Oxygen Delivery Fraction of Inspired Oxygen 08/02/24 11:30 08/02/24 12:00 08/02/24 12:00 Temperature 98.3 F Pulse Rate 65 61 64 Respiratory Rate 16 16 Blood Pressure 104/56 L Pulse Oximetry 93 Oxygen Delivery Fraction of Inspired Oxygen 08/02/24 12:00 08/02/24 12:00 08/02/24 12:15 Temperature Pulse Rate 65 Respiratory Rate Blood Pressure Pulse Oximetry 92 92 Oxygen Delivery Mechanical Ventilation Mechanical Ventilation Fraction of Inspired Oxygen 30 30 30 08/02/24 12:16 08/02/24 12:16 08/02/24 13:22 Temperature Pulse Rate 64 64 56 L Respiratory Rate 16 16 16 Blood Pressure Pulse Oximetry Oxygen Delivery Fraction of Inspired Oxygen 08/02/24 13:24 08/02/24 14:00 08/02/24 14:00 Temperature Pulse Rate 59 L 62 62 Respiratory Rate 16 16 Blood Pressure 93/50 L Pulse Oximetry 93 Oxygen Delivery Fraction of Inspired Oxygen 08/02/24 14:02 08/02/24 14:02 08/02/24 14:19 Temperature Pulse Rate 61 61 78 Respiratory Rate 16 16 Blood Pressure Pulse Oximetry 93 Oxygen Delivery Mechanical Ventilation Fraction of Inspired Oxygen 30 08/02/24 14:23 08/02/24 14:24 08/02/24 14:50 Temperature Pulse Rate 72 72 73 Respiratory Rate 16 16 16 Blood Pressure Pulse Oximetry Oxygen Delivery Fraction of Inspired Oxygen 08/02/24 14:50 08/02/24 15:18 08/02/24 15:38 Temperature Pulse Rate 73 75 75 Respiratory Rate 16 16 16 Blood Pressure Pulse Oximetry Oxygen Delivery Fraction of Inspired Oxygen 08/02/24 15:39 08/02/24 16:00 08/02/24 16:00 Temperature Pulse Rate 75 Respiratory Rate 16 Blood Pressure Pulse Oximetry 93 Oxygen Delivery Mechanical Ventilation Fraction of Inspired Oxygen 30 30 08/02/24 16:00 08/02/24 16:00 08/02/24 16:10 Temperature 98.6 F Pulse Rate 81 82 81 Respiratory Rate 16 16 Blood Pressure 121/60 Pulse Oximetry 93 Oxygen Delivery Fraction of Inspired Oxygen 08/02/24 16:11 08/02/24 16:53 08/02/24 18:00 Temperature Pulse Rate 81 75 73 Respiratory Rate 16 16 Blood Pressure 115/60 Pulse Oximetry 93 92 Oxygen Delivery Mechanical Ventilation Fraction of Inspired Oxygen 30 08/02/24 18:00 08/02/24 18:03 08/02/24 18:03 Temperature Pulse Rate 75 72 72 Respiratory Rate 16 16 Blood Pressure Pulse Oximetry Oxygen Delivery Fraction of Inspired Oxygen 08/02/24 20:00 08/02/24 20:00 08/02/24 20:00 Temperature Pulse Rate 64 64 Respiratory Rate 16 16 Blood Pressure Pulse Oximetry 92 Oxygen Delivery Mechanical Ventilation Fraction of Inspired Oxygen 30 08/02/24 20:00 08/02/24 20:00 08/02/24 20:02 Temperature Pulse Rate 64 64 Respiratory Rate 16 Blood Pressure Pulse Oximetry Oxygen Delivery Fraction of Inspired Oxygen 30 08/02/24 20:03 08/02/24 20:19 08/02/24 20:24 Temperature 98.9 F Pulse Rate 62 64 65 Respiratory Rate 16 16 Blood Pressure 116/58 L Pulse Oximetry 92 91 Oxygen Delivery Mechanical Ventilation Fraction of Inspired Oxygen 30 08/02/24 20:54 08/02/24 20:54 08/02/24 22:00 Temperature Pulse Rate 66 66 59 L Respiratory Rate 16 16 18 Blood Pressure Pulse Oximetry Oxygen Delivery Fraction of Inspired Oxygen 08/02/24 22:00 08/02/24 22:00 08/02/24 22:08 Temperature 98.9 F Pulse Rate 59 L 59 L 59 L Respiratory Rate 18 18 Blood Pressure 104/52 L Pulse Oximetry 92 Oxygen Delivery Fraction of Inspired Oxygen 08/02/24 23:03 08/02/24 23:07 08/03/24 00:00 Temperature Pulse Rate 54 L 54 L 61 Respiratory Rate 16 16 Blood Pressure Pulse Oximetry 93 Oxygen Delivery Mechanical Ventilation Fraction of Inspired Oxygen 30 08/03/24 00:00 08/03/24 00:00 08/03/24 00:00 Temperature Pulse Rate 61 56 L Respiratory Rate 16 Blood Pressure Pulse Oximetry 92 Oxygen Delivery Mechanical Ventilation Fraction of Inspired Oxygen 30 08/03/24 00:00 08/03/24 00:09 08/03/24 00:12 Temperature 98 F Pulse Rate 57 L 61 Respiratory Rate 18 Blood Pressure 95/48 L 104/54 L Pulse Oximetry 92 Oxygen Delivery Fraction of Inspired Oxygen 30 08/03/24 01:30 08/03/24 01:30 08/03/24 02:00 Temperature Pulse Rate 55 L 55 L 62 Respiratory Rate 16 16 Blood Pressure Pulse Oximetry Oxygen Delivery Fraction of Inspired Oxygen 08/03/24 02:00 08/03/24 02:00 08/03/24 02:04 Temperature 98.2 F Pulse Rate 62 62 62 Respiratory Rate 16 16 18 Blood Pressure 103/54 L Pulse Oximetry 93 Oxygen Delivery Fraction of Inspired Oxygen 08/03/24 02:54 08/03/24 02:56 08/03/24 04:00 Temperature Pulse Rate 57 L 57 L Respiratory Rate 16 Blood Pressure Pulse Oximetry 94 93 Oxygen Delivery Mechanical Ventilation Mechanical Ventilation Fraction of Inspired Oxygen 30 30 08/03/24 04:00 08/03/24 04:00 08/03/24 04:00 Temperature Pulse Rate 65 65 Respiratory Rate 16 Blood Pressure Pulse Oximetry Oxygen Delivery Fraction of Inspired Oxygen 30 08/03/24 04:00 08/03/24 04:38 08/03/24 04:56 Temperature 98.8 F Pulse Rate 65 70 68 Respiratory Rate 16 18 Blood Pressure 123/68 Pulse Oximetry 93 92 Oxygen Delivery Mechanical Ventilation Fraction of Inspired Oxygen 30 08/03/24 06:00 08/03/24 06:00 08/03/24 06:00 Temperature Pulse Rate 70 70 70 Respiratory Rate 18 18 Blood Pressure Pulse Oximetry Oxygen Delivery Fraction of Inspired Oxygen 08/03/24 06:05 08/03/24 07:13 08/03/24 07:13 Temperature 98.8 F Pulse Rate 70 70 70 Respiratory Rate 18 16 16 Blood Pressure 126/64 Pulse Oximetry 93 Oxygen Delivery Fraction of Inspired Oxygen 08/03/24 08:00 Temperature 97.6 F Pulse Rate 72 Respiratory Rate 16 Blood Pressure 138/67 Pulse Oximetry 93 Oxygen Delivery Fraction of Inspired Oxygen Intake/Output Intake/Output: Intake & Output 07/31/24 08/01/24 08/02/24 08/03/24 23:59 23:59 23:59 23:59 Intake Total 1774.1 2510.3 3843.4 978.5 Output Total 9019 991 1103 650 Balance 599.1 1560.3 2593.4 328.5 Meds/Results Medications: Active Medications Generic Name Dose Route Start Last Admin Trade Name Freq PRN Reason Stop Dose Admin Acetylcysteine 200 mg 08/01/24 08:00 08/03/24 08:09 Acetylcysteine 20% Inhal Soln 800 Mg/4 Ml Vial INHALATION 200 mg Q6HRT RAISSA Administration Albuterol/Ipratropium 3 ml 08/01/24 14:00 08/03/24 08:09 Ipratropium 0.5 Mg/Albuterol Sulfate 2.5 Mg Ampul.Neb 3 Ml INHALATION 3 ml Q6HRT RAISSA Administration Atorvastatin Calcium 10 mg 07/31/24 21:00 08/02/24 20:30 Atorvastatin 10 Mg Tablet PO 10 mg QHS RAISSA Administration Bisacodyl 10 mg 07/30/24 20:15 Bisacodyl 10 Mg Suppository RECTAL ONCE PRN Constipation Dextrose 12.5 gm 07/31/24 00:46 Dextrose 50% 25 Gm/50 Ml Syringe IV PUSH PRN PRN Hypoglycemia Protocol Dornase Gerald 2.5 mg 08/01/24 08:00 08/03/24 08:20 Dornase Gerald Inh Soln 1 Mg/Ml 2.5 Ml Amp INHALATION 08/06/24 23:59 2.5 mg Q12HRT RAISSA Administration Enoxaparin Sodium 40 mg 07/31/24 09:00 08/03/24 08:23 Enoxaparin 40 Mg/0.4 Ml Syringe SUB-Q 40 mg DAILY RAISSA Administration Fluticasone/Umeclidinium/Vilanterol 1 puff 07/31/24 09:45 08/03/24 08:12 Fluticasone/Umeclidin/Vilanter 100-62.5-25 Mcg Ellipta INHALATION Not Given DAILYRT RAISSA Glucagon 1 mg 07/31/24 00:46 Glucagon For Inj 1 Mg Vial IM PRN PRN Hypoglycemia Protocol Glucose 15 gm 07/31/24 00:46 Glucose Oral Gel 15 Gm Of Glucse In 37.5 Gm Tube PO PRN PRN Hypoglycemia Protocol Ceftriaxone Sodium 2 gm in 100 mls @ 200 mls/hr 07/31/24 00:00 08/03/24 00:09 Rocephin 2 Gm/Ns 100 Ml IVPB Infused Q24H RAISSA Infusion Azithromycin 500 mg in 250 mls @ 250 mls/hr 07/31/24 01:00 08/03/24 01:27 Zithromax IVPB 250 mls/hr Q24H RAISSA Administration Dextrose 1,000 mls @ 100 mls/hr 07/31/24 00:46 Dextrose 5% 1,000 Ml IVPB PRN PRN Hypoglycemia Protocol Fentanyl Citrate 2,500 mcg in 250 mls @ 5 mls/hr 07/31/24 01:55 08/03/24 06:00 Fentanyl 2,500 Mcg/Ns 250 Ml IV CONT 50 mcg/hr .Q50H RAISSA 5 mls/hr Titration Protocol 50 MCG/HR Propofol 100 mls @ 17.01 mls/hr 08/01/24 07:55 08/03/24 07:13 Diprivan IV CONT 25 mcg/kg/min .Q5H53M RAISSA 17.01 mls/hr Administration Protocol 25 MCG/KG/MIN Vancomycin HCl 1,500 mg in 500 mls @ 250 mls/hr 08/03/24 00:00 08/02/24 23:39 Vancomycin 1,500 Mg/Ns 500 Ml IVPB 250 mls/hr Q12H RAISSA Administration Insulin Aspart 3 - 6 units 07/31/24 06:00 08/03/24 07:00 Insulin Aspart (*Bkc) 100 Units/Ml SUB-Q Not Given Q6HR [facility] Protocol Magnesium Hydroxide 30 ml 07/30/24 20:15 Magnesium Hydroxide Susp 30 Ml Udc FEED TUBE DAILY PRN Constipation Methylprednisolone Sodium Succinate 40 mg 07/30/24 18:00 08/03/24 05:30 Methylprednisolone Sod Succ 40 Mg Vial IV PUSH 40 mg Q6H RAISSA Administration Midazolam HCl 2 mg 07/30/24 20:27 07/30/24 21:14 Midazolam Hcl (*Crx) 2 Mg/2 Ml Vial IV PUSH 2 mg ONCE PRN Administration Agitation Miscellaneous Information 1 each 08/03/24 00:01 Propofol Needs To Be Renewed Or It Will Automatically Discontinue. XX 09/02/24 00:00 CLARIFY RAISSA Multi-Ingred Cream/Lotion/Oil/Oint 1 applic 07/31/24 09:00 08/03/24 08:23 Mineral Oil/White Petrolatum Ointment EACH EYE 1 applic Q12HR RAISSA Administration Pantoprazole Sodium 40 mg 07/31/24 09:00 08/03/24 08:23 Pantoprazole Sodium Iv 40 Mg Vial IV PUSH 40 mg DAILY RAISSA Administration Polyethylene Glycol 17 gm 08/02/24 11:00 Polyethylene Glycol 3350 17 Gm Powd.Pack PO QAM PRN Constipation Senna/Docusate Sodium 1 tab 08/02/24 21:00 08/02/24 20:29 Senna/Docusate Sodium Tablet PO 1 tab HS RAISSA Administration Sodium Chloride 10 ml 08/02/24 14:00 08/03/24 08:29 Central Line Flush IV PUSH 10 ml Q8HR RAISSA Administration Sodium Chloride 20 ml 08/02/24 09:06 Central Line Flush IV PUSH PRN PRN after blood draws Radiology Results: ITS Impressions Chest CTA 07/30/24 16:19 IMPRESSION: Right lung atelectasis including particularly upper and lower lobes; which may be due to malignant or radiation stricture of the right bronchial airways. Consider PET/CT correlation No pulmonary embolism Abdomen X-Ray 07/31/24 05:45 IMPRESSION: 1. Nonobstructive bowel gas pattern. Chest X-Ray 08/03/24 06:21 IMPRESSION: 1. Stable airspace opacities in right perihilar region and right upper lobe, likely radiation pneumonitis. 2. Airspace opacities in the lower lung zones with worsening on the left, consistent with atelectasis versus pneumonia. 3. Cardiomegaly. Labs Labs: Laboratory Results - last 24 hr 08/02/24 08/02/24 08/02/24 12:01 17:32 22:00 WBC RBC Hgb Hct MCV MCH MCHC RDW Plt Count MPV Immature Gran % (Auto) Neut % (Auto) Lymph % (Auto) [place] % (Auto) Eos % (Auto) Baso % (Auto) Lymph # (Auto) [place] # (Auto) Eos # (Auto) Baso # (Auto) Abs Immat Gran (auto) Absolute Neuts (auto) Absolute Nucleated RBC Total Counted Neutrophils % (Manual) Band Neutrophils % Lymphocytes % (Manual) Monocytes % (Manual) Nucleated RBC % Abs Neuts (Manual) Abs Lymphs (Manual) Abs Monocytes (Manual) Nucleated RBCs Platelet Estimate Large Platelets Ovalocytes Schistocytes Puncture Site ABG pH ABG pCO2 ABG pO2 ABG PO2/FiO2 Ratio ABG HCO3 ABG O2 Saturation ABG O2 Content ABG Base Excess A-a Gradient Oxyhemoglobin Carboxyhemoglobin Methemoglobin Reduced Hemoglobin Total Hemoglobin O2 Delivery Device O2 Liters/Min Minute Volume Vent Rate Vent Mode FiO2 Tidal Volume PEEP Peak Inspir Pressure Pressure Support Sodium Potassium Chloride Carbon Dioxide Anion Gap BUN Creatinine Estim Creat Clear Calc Estimated GFR Glucose POC Capillary Glucose 169 H 208 H Calcium Phosphorus Magnesium Total Bilirubin AST ALT Alkaline Phosphatase Total Protein Albumin Triglycerides Vancomycin Trough 16.2 08/02/24 08/03/24 08/03/24 23:47 04:34 04:35 WBC 10.7 H RBC 3.93 L Hgb 12.1 Hct 38.9 MCV 99.0 MCH 30.8 MCHC 31.1 L RDW 14.0 Plt Count 220 MPV 10.4 Immature Gran % (Auto) Not Reportable Neut % (Auto) Not Reportable Lymph % (Auto) Not Reportable [place] % (Auto) Not Reportable Eos % (Auto) Not Reportable Baso % (Auto) Not Reportable Lymph # (Auto) Not Reportable [place] # (Auto) Not Reportable Eos # (Auto) Not Reportable Baso # (Auto) Not Reportable Abs Immat Gran (auto) Not Reportable Absolute Neuts (auto) Not Reportable Absolute Nucleated RBC Not Reportable Total Counted 100 Neutrophils % (Manual) 78 H Band Neutrophils % 2 Lymphocytes % (Manual) 14.0 L Monocytes % (Manual) 6 Nucleated RBC % Not Reportable Abs Neuts (Manual) 8.56 H Abs Lymphs (Manual) 1.49 Abs Monocytes (Manual) 0.64 Nucleated RBCs 2 Platelet Estimate Adequate Large Platelets Present Ovalocytes 1+ Schistocytes None seen Puncture Site ABG pH ABG pCO2 ABG pO2 ABG PO2/FiO2 Ratio ABG HCO3 ABG O2 Saturation ABG O2 Content ABG Base Excess A-a Gradient Oxyhemoglobin Carboxyhemoglobin Methemoglobin Reduced Hemoglobin Total Hemoglobin O2 Delivery Device O2 Liters/Min Minute Volume Vent Rate Vent Mode FiO2 Tidal Volume PEEP Peak Inspir Pressure Pressure Support Sodium 142 Potassium 4.2 Chloride 109 H Carbon Dioxide 35 H Anion Gap -2 L BUN 42 H Creatinine 0.70 Estim Creat Clear Calc 70 Estimated GFR > 60 Glucose 183 H POC Capillary Glucose 173 H Calcium 9.0 Phosphorus 3.7 Magnesium 2.5 H Total Bilirubin 0.4 AST 46 H ALT 62 H Alkaline Phosphatase 84 Total Protein 6.0 L Albumin 3.0 L Triglycerides 182 H Vancomycin Trough 08/03/24 08/03/24 04:59 05:54 WBC RBC Hgb Hct MCV MCH MCHC RDW Plt Count MPV Immature Gran % (Auto) Neut % (Auto) Lymph % (Auto) [place] % (Auto) Eos % (Auto) Baso % (Auto) Lymph # (Auto) [place] # (Auto) Eos # (Auto) Baso # (Auto) Abs Immat Gran (auto) Absolute Neuts (auto) Absolute Nucleated RBC Total Counted Neutrophils % (Manual) Band Neutrophils % Lymphocytes % (Manual) Monocytes % (Manual) Nucleated RBC % Abs Neuts (Manual) Abs Lymphs (Manual) Abs Monocytes (Manual) Nucleated RBCs Platelet Estimate Large Platelets Ovalocytes Schistocytes Puncture Site Right radial ABG pH 7.418 ABG pCO2 42.6 ABG pO2 66.8 L ABG PO2/FiO2 Ratio 2.23 ABG HCO3 26.9 H ABG O2 Saturation 93.5 L ABG O2 Content 17.1 ABG Base Excess 2.1 A-a Gradient 97.0 Oxyhemoglobin 92.0 Carboxyhemoglobin 0.3 Methemoglobin 0.1 Reduced Hemoglobin 7.6 H Total Hemoglobin 13.2 O2 Delivery Device Ventilator O2 Liters/Min Not Reportable Minute Volume Not Reportable Vent Rate 16 Vent Mode Cmv FiO2 30 Tidal Volume 480 PEEP 5 Peak Inspir Pressure Not Reportable Pressure Support Not Reportable Sodium Potassium Chloride Carbon Dioxide Anion Gap BUN Creatinine Estim Creat Clear Calc Estimated GFR Glucose POC Capillary Glucose 164 H Calcium Phosphorus Magnesium Total Bilirubin AST ALT Alkaline Phosphatase Total Protein Albumin Triglycerides Vancomycin Trough Quality VTE Prophylaxis VTE prophylaxis: pharmacologic ordered
--- NOTE | 2024-08-03 10:01 | P.CONCA_ITS ---
Assessment and Plan Assessment and plan (1) Right heart failure with reduced right ventricular function: Code(s): I50.810 - Right heart failure, unspecified Status: Acute Plan 74-year-old woman with lung cancer (05/2017) status post chemoradiation therapy, emphysema, former tobacco user, and hyperlipidemia initially presented to the emergency room with shortness of breath and admitted for acute hypoxic hypercarbic respiratory failure requiring mechanical ventilation Right ventricular failure -the transthoracic echocardiogram was very technically difficult with very limited views however does suggest severely reduced systolic function of the right ventricle -the right ventricular failure may be secondary to the pulmonary findings on her CT scan -family will also provide previous records to determine if this is chronic or relatively new finding -can continue Lasix 40 mg IV push daily while she is ventilated -she will also need a repeat outpatient transthoracic echocardiogram History of Present Illness History of Present Illness Consult date/time: 08/03/24 10:01 Requesting physician: Chau Gresham MD Consult reason: Other Reason For Visit: Acute hypoxic, Hypercapnic respiratory failure req Narrative: 74-year-old woman with lung cancer (05/2017) status post chemoradiation therapy, emphysema, former tobacco user, and hyperlipidemia initially presented to the emergency room with shortness of breath and admitted for acute hypoxic hypercarbic respiratory failure requiring mechanical ventilation. Her daughter is at bedside today and provided much of the history as patient is intubated and sedated. For a week now, patient has been complaining of shortness of breath. There was no mention or complaints of chest discomfort, orthopnea, or syncope. She has previously seen a short range air defense artillery (Dr. Leonardo at [facility]) for lower extremity swelling and a transthoracic echocardiogram performed at that time which was about 1 year ago showed normal left ventricular systolic function. Prior to the patient's decompensation, patient uses a rolling walker and is mostly homebound. When she does walk outside she does have exertional shortness of breath and at times does require oxygen. This condition has mostly been contributed to the effects of her chemoradiation therapy and emphysema. Review of Systems 2 Review of Systems: ROS unobtainable: Yes unobtainable due to endotracheal tube PMFSH Past Medical History Medical History Colles' fracture of right radius (~05/09/23) Lung cancer (~05/2017) Emphysema/COPD Hyperlipidemia Surgical History Surgical History H/O section Social History Social History Smoking packs per day: 2 Smoking cigarettes per day: 40.0 Years smoked: 45 Smoking pack-years: 90.00 Smoking status: Former smoker Tobacco type: cigarettes Alcohol intake: never Substance use: never Substance use type: does not use Lack of Transportation: No Lack of Food: Never True Current Housing: I Have Housing Concerned About Future Housing: No Difficulty Paying Gas/Electric Bills: No Difficulty Paying for Meds: No Currently Unemployed: No Education: High School Diploma/GED Difficulty w/ Childcare or Family Care: No Spiritual care concerns: No Meds Home Medications and Allergies Home Medications ?Medication ?Instructions ?Recorded ?Confirmed ?Type atorvastatin 10 mg tablet 10 mg PO DAILY 05/12/23 07/30/24 History potassium chloride 10 mEq 10 meq PO DAILY 05/12/23 07/30/24 History capsule,extended release albuterol sulfate 2.5 mg/3 mL 2.5 mg inhalation Q4H PRN 07/04/23 07/30/24 History (0.083 %) solution for nebulization Shortness Of Breath Or Wheezing fluticasone fur. 100 mcg-umeclid 1 inh inhalation DAILY 07/04/23 07/31/24 History 62.5 mcg-vilant 25 mcg inhalat.powder (Trelegy Ellipta) furosemide 40 mg tablet 40 mg PO DAILY 07/04/23 07/31/24 History loratadine 10 mg tablet 10 mg PO DAILY 07/04/23 07/31/24 History montelukast 10 mg tablet 10 mg PO DAILY 07/04/23 07/31/24 History mirabegron 50 mg tablet,extended 50 mg PO DAILY 07/31/24 07/31/24 History release 24 hr (Myrbetriq) Allergies Allergy/AdvReac Type Severity Reaction Status Date / Time No Known Allergies Allergy Mild Verified 07/30/24 12:30 Vital Signs Vital Signs - 24 hr 08/02/24 11:30 08/02/24 11:30 08/02/24 12:00 Temperature 36.8 C Pulse Rate 65 65 61 Respiratory Rate 16 16 16 Blood Pressure 104/56 L Pulse Oximetry 93 Oxygen Delivery Fraction of Inspired Oxygen 08/02/24 12:00 08/02/24 12:00 08/02/24 12:00 Temperature Pulse Rate 64 Respiratory Rate Blood Pressure Pulse Oximetry 92 Oxygen Delivery Mechanical Ventilation Fraction of Inspired Oxygen 30 30 08/02/24 12:15 08/02/24 12:16 08/02/24 12:16 Temperature Pulse Rate 65 64 64 Respiratory Rate 16 16 Blood Pressure Pulse Oximetry 92 Oxygen Delivery Mechanical Ventilation Fraction of Inspired Oxygen 30 08/02/24 13:22 08/02/24 13:24 08/02/24 14:00 Temperature Pulse Rate 56 L 59 L 62 Respiratory Rate 16 16 16 Blood Pressure 93/50 L Pulse Oximetry 93 Oxygen Delivery Fraction of Inspired Oxygen 08/02/24 14:00 08/02/24 14:02 08/02/24 14:02 Temperature Pulse Rate 62 61 61 Respiratory Rate 16 Blood Pressure Pulse Oximetry 93 Oxygen Delivery Mechanical Ventilation Fraction of Inspired Oxygen 30 08/02/24 14:19 08/02/24 14:23 08/02/24 14:24 Temperature Pulse Rate 78 72 72 Respiratory Rate 16 16 16 Blood Pressure Pulse Oximetry Oxygen Delivery Fraction of Inspired Oxygen 08/02/24 14:50 08/02/24 14:50 08/02/24 15:18 Temperature Pulse Rate 73 73 75 Respiratory Rate 16 16 16 Blood Pressure Pulse Oximetry Oxygen Delivery Fraction of Inspired Oxygen 08/02/24 15:38 08/02/24 15:39 08/02/24 16:00 Temperature Pulse Rate 75 75 Respiratory Rate 16 16 Blood Pressure Pulse Oximetry 93 Oxygen Delivery Mechanical Ventilation Fraction of Inspired Oxygen 30 08/02/24 16:00 08/02/24 16:00 08/02/24 16:00 Temperature 37.0 C Pulse Rate 81 82 Respiratory Rate 16 Blood Pressure 121/60 Pulse Oximetry 93 Oxygen Delivery Fraction of Inspired Oxygen 30 08/02/24 16:10 08/02/24 16:11 08/02/24 16:53 Temperature Pulse Rate 81 81 75 Respiratory Rate 16 16 Blood Pressure Pulse Oximetry 93 Oxygen Delivery Mechanical Ventilation Fraction of Inspired Oxygen 30 08/02/24 18:00 08/02/24 18:00 08/02/24 18:03 Temperature Pulse Rate 73 75 72 Respiratory Rate 16 16 Blood Pressure 115/60 Pulse Oximetry 92 Oxygen Delivery Fraction of Inspired Oxygen 08/02/24 18:03 08/02/24 20:00 08/02/24 20:00 Temperature Pulse Rate 72 64 64 Respiratory Rate 16 16 16 Blood Pressure Pulse Oximetry Oxygen Delivery Fraction of Inspired Oxygen 08/02/24 20:00 08/02/24 20:00 08/02/24 20:00 Temperature Pulse Rate 64 Respiratory Rate Blood Pressure Pulse Oximetry 92 Oxygen Delivery Mechanical Ventilation Fraction of Inspired Oxygen 30 30 08/02/24 20:02 08/02/24 20:03 08/02/24 20:19 Temperature 37.2 C Pulse Rate 64 62 64 Respiratory Rate 16 16 Blood Pressure 116/58 L Pulse Oximetry 92 91 Oxygen Delivery Mechanical Ventilation Fraction of Inspired Oxygen 30 08/02/24 20:24 08/02/24 20:54 08/02/24 20:54 Temperature Pulse Rate 65 66 66 Respiratory Rate 16 16 16 Blood Pressure Pulse Oximetry Oxygen Delivery Fraction of Inspired Oxygen 08/02/24 22:00 08/02/24 22:00 08/02/24 22:00 Temperature Pulse Rate 59 L 59 L 59 L Respiratory Rate 18 18 Blood Pressure Pulse Oximetry Oxygen Delivery Fraction of Inspired Oxygen 08/02/24 22:08 08/02/24 23:03 08/02/24 23:07 Temperature 37.2 C Pulse Rate 59 L 54 L 54 L Respiratory Rate 18 16 Blood Pressure 104/52 L Pulse Oximetry 92 93 Oxygen Delivery Mechanical Ventilation Fraction of Inspired Oxygen 30 08/03/24 00:00 08/03/24 00:00 08/03/24 00:00 Temperature Pulse Rate 61 61 Respiratory Rate 16 16 Blood Pressure Pulse Oximetry 92 Oxygen Delivery Mechanical Ventilation Fraction of Inspired Oxygen 30 08/03/24 00:00 08/03/24 00:00 08/03/24 00:09 Temperature 36.6 C Pulse Rate 56 L 57 L Respiratory Rate 18 Blood Pressure 95/48 L Pulse Oximetry 92 Oxygen Delivery Fraction of Inspired Oxygen 30 08/03/24 00:12 08/03/24 01:30 08/03/24 01:30 Temperature Pulse Rate 61 55 L 55 L Respiratory Rate 16 16 Blood Pressure 104/54 L Pulse Oximetry Oxygen Delivery Fraction of Inspired Oxygen 08/03/24 02:00 08/03/24 02:00 08/03/24 02:00 Temperature Pulse Rate 62 62 62 Respiratory Rate 16 16 Blood Pressure Pulse Oximetry Oxygen Delivery Fraction of Inspired Oxygen 08/03/24 02:04 08/03/24 02:54 08/03/24 02:56 Temperature 36.8 C Pulse Rate 62 57 L 57 L Respiratory Rate 18 16 Blood Pressure 103/54 L Pulse Oximetry 93 94 Oxygen Delivery Mechanical Ventilation Fraction of Inspired Oxygen 30 08/03/24 04:00 08/03/24 04:00 08/03/24 04:00 Temperature Pulse Rate 65 Respiratory Rate Blood Pressure Pulse Oximetry 93 Oxygen Delivery Mechanical Ventilation Fraction of Inspired Oxygen 30 30 08/03/24 04:00 08/03/24 04:00 08/03/24 04:38 Temperature 37.1 C Pulse Rate 65 65 70 Respiratory Rate 16 16 18 Blood Pressure 123/68 Pulse Oximetry 93 Oxygen Delivery Fraction of Inspired Oxygen 08/03/24 04:56 08/03/24 06:00 08/03/24 06:00 Temperature Pulse Rate 68 70 70 Respiratory Rate 18 Blood Pressure Pulse Oximetry 92 Oxygen Delivery Mechanical Ventilation Fraction of Inspired Oxygen 30 08/03/24 06:00 08/03/24 06:05 08/03/24 07:13 Temperature 37.1 C Pulse Rate 70 70 70 Respiratory Rate 18 18 16 Blood Pressure 126/64 Pulse Oximetry 93 Oxygen Delivery Fraction of Inspired Oxygen 08/03/24 07:13 08/03/24 08:00 08/03/24 08:00 Temperature 36.4 C Pulse Rate 70 72 Respiratory Rate 16 16 Blood Pressure 138/67 Pulse Oximetry 93 Oxygen Delivery Fraction of Inspired Oxygen 30 08/03/24 08:00 08/03/24 08:00 08/03/24 08:00 Temperature Pulse Rate 72 72 Respiratory Rate 18 18 Blood Pressure Pulse Oximetry 93 Oxygen Delivery Mechanical Ventilation Fraction of Inspired Oxygen 30 08/03/24 08:00 08/03/24 08:09 08/03/24 08:09 Temperature Pulse Rate 72 76 76 Respiratory Rate 16 Blood Pressure Pulse Oximetry 93 Oxygen Delivery Mechanical Ventilation Fraction of Inspired Oxygen 30 08/03/24 08:39 Temperature Pulse Rate 75 Respiratory Rate 16 Blood Pressure Pulse Oximetry Oxygen Delivery Fraction of Inspired Oxygen Exam 2 Const: Other: Intubated and sedated HENMT: Mouth: Yes moist mucous membranes Eyes: EOM: EOMs intact bilaterally Neck: Neck: no JVD Resp: Other: Ventilated Cardio: Rate: regular rate Rhythm: regular rhythm GI: GI Palp: Yes Soft to palpation Extrem: General: no edema and no pedal edema Results Labs and Meds 08/03/24 04:35 08/03/24 04:34 Lab results: Cardiac Enzymes 08/03/24 Range/Units 04:34 AST 46 H (14-36) U/L Lipids 08/03/24 Range/Units 04:34 Triglycerides 182 H (<150) mg/dL CBC 08/03/24 Range/Units 04:35 WBC 10.7 H (4.5-10.0) K/mm3 RBC 3.93 L (4.2-5.4) M/mm3 Hgb 12.1 (12.0-15.0) g/dL Hct 38.9 (37.0-47.0) % Plt Count 220 (150-375) k/mm3 Lymph # (Auto) Not Reportable Traill # (Auto) Not Reportable Eos # (Auto) Not Reportable Baso # (Auto) Not Reportable Comprehensive Metabolic Panel 08/03/24 Range/Units 04:34 Sodium 142 (137-145) mmol/L Potassium 4.2 (3.4-5.0) mmol/L Chloride 109 H (98-107) mmol/L Carbon Dioxide 35 H (22-30) mmol/L BUN 42 H (7-17) mg/dL Creatinine 0.70 (0.7-1.0) mg/dL Glucose 183 H (65-110) mg/dL Calcium 9.0 (8.4-10.2) mg/dL AST 46 H (14-36) U/L ALT 62 H (6-35) U/L Alkaline Phosphatase 84 (38-126) U/L Total Protein 6.0 L (6.3-8.2) g/dL Albumin 3.0 L (3.5-5.1) g/dL Intake and Output 08/02/24 08/03/24 08/03/24 23:59 07:59 15:59 Intake Total 868.3 978.5 23.3 Output Total 700 650 Balance 168.3 328.5 23.3 Intake: IV 156.3 291.5 23.3 Fentanyl 2,500Mcg/Ld956gp(*Crx 55.5 34.8 10 2,500 mcg In 250 ml @ 50 MCG/HR 5 mls/hr IV CONT .Q50H [facility]IS[facility] Rx# :[id number] Propofol IV Emulsion 100 ml @ 100.8 156.7 13.3 25 MCG/KG/MIN 17.01 mls/hr IV CONT .Q5H53M RAISSA Rx#:[id number] cefTRIAXone 2 GM/NS 100 ML 2 gm 100 In 100 ml @ 200 mls/hr IVPB Q24H RAISSA Rx#:[id number] Tube Feeding 532 477 Tube Flush 180 90 Other 120 Output: Catheter Urine 700 650 Urethral Catheter 700 650 Patient Weight 08/03/24 23:59 Weight 113.7 kg
--- NOTE | 2024-08-03 11:06 | PCFNICU ---
ICU Rounding Note: Pt current nutrition is Vital AF 1.2 @ goal rate 45 ml/h with flushes 30 ml q 4 hours Nutrition recommendation: No new nutrition recommendations. Continue with current nutrition care plan and orders. Agree with orders Last recorded weight is 113.7 kg. Bowel Motility: No bowel movements. Senna and miralax on board now Labs Reviewed: Alb 3.0, BUN 42, Glu 13, Mag 2.5, TRIG 182 Meds Noted: Propofol running at 17 ml/h = 449 kcal. Fentanyl, protonix Skin: Deep tissue pressure injury to coccyx Additional Notes: Discussed in rounds. No pressors. Bowel regimen added. Tolerating tube feedings. Vital 1.2 @ goal 45 ml/h provides 1618 kcal, 74 g protein, 803 ml free water. ~100% EER for 15 kcal/kg, ALEM Following daily in ICU rounds. Will monitor weight, labs, skin, diet orders, meds every Wednesday and Wednesday. .
[2024-08-03 11:26] LABS: Glucose Point of Care 193 mg/dl (65-105)
[2024-08-03] MEDS: VANCOMYCIN 1,500 MG/NS 500 ML 1,500 MG/500 ML BAG 250 MG IVPB (12:07)
--- NOTE | 2024-08-03 13:50 | P.CONPL_ITS ---
Assessment and Plan Assessment and plan (1) Pneumonia: Code(s): J18.9 - Pneumonia, unspecified organism Status: Acute (2) Acute hypercapnic respiratory failure: Code(s): J96.02 - Acute respiratory failure with hypercapnia Status: Acute Plan Bronchoscopy was performed at the bedside using disposable scope. Informed consent was obtained from the family by the nursing staff. Start time: 14:07 End time: 14:39 Reason for procedure: atelectasis, secretions that are difficult to suction, failed Mucomyst. History of Present Illness History of Present Illness Consult date: 08/03/24 Requesting physician: Chau Gresham MD Chief complaint: Acute hypoxic, Hypercapnic respiratory failure req Narrative: pt was seen 13:50 Aug 03, 2024, ICU 5 NEW: Gaby Morgan is 74 years old, has history of lung cancer right side in 2017, treated with radiation, no surgery. She has COPD, uses o2 at home at night and p.r.n. in the day. She was admitted with hypoxemia, is on treatment DATA * 08/03/24 CXR There is volume loss of right hemithorax. There are airspace opacities in right perihilar region and right upper lung zone. There are mild airspace opacities in the lower lung zones. No pleural effusion or pneumothorax. Cardiomegaly is noted. The endotracheal tube tip is 4.3 cm above the vera. The nasogastric tube tip is beyond the inferior margin of the radiograph, but at least to the stomach. A right internal jugular central venous catheter is seen with tip in the proximal right atrium. IMPRESSION: 1. Stable airspace opacities in right perihilar region and right upper lobe, likely radiation pneumonitis. 2. Airspace opacities in the lower lung zones with worsening on the left, consistent with atelectasis versus pneumonia. 3. Cardiomegaly. * 07/30/24 CTA : There is diagnostic contrast enhancement of the pulmonary arteries and no evidence of pulmonary embolism. There is prominent right lung volume loss including right upper lobe atelectasis, minimal right upper lobe vascularity, prominent right lower lobe atelectasis. There is limited expansion of the right lung. There is prominent narrowing of the right upper lobe bronchus, virtual occlusion of the right intermediate bronchus. There is mild right pleural effusion. Cardiomegaly. No pericardial effusion. There is thoracic aortic calcification and mild thoracic aortic aneurysm, measuring up to approximately 3.3 cm diameter in the posterior aortic arch area. Scattered mild pulmonary infiltrates and/atelectasis involving left upper lobe and to a greater extent left lower lobe. Normal morphology of the adrenal glands. Included upper abdominal structures are unremarkable. No suspicious osteolytic or osteoblastic lesions are noted. IMPRESSION: Right lung atelectasis including particularly upper and lower lobes; which may be due to malignant or radiation stricture of the right bronchial airways. Consider PET/CT correlation No pulmonary embolism Review of Systems 2 Review of Systems: ROS unobtainable: Yes unobtainable due to endotracheal tube PMFSH Past Medical History Medical History Colles' fracture of right radius (~05/09/23) Lung cancer (~05/2017) Emphysema/COPD Hyperlipidemia Surgical History Surgical History H/O section Social History Social History Smoking packs per day: 2 Smoking cigarettes per day: 40.0 Years smoked: 45 Smoking pack-years: 90.00 Smoking status: Former smoker Tobacco type: cigarettes Alcohol intake: never Substance use: never Substance use type: does not use Lack of Transportation: No Lack of Food: Never True Current Housing: I Have Housing Concerned About Future Housing: No Difficulty Paying Gas/Electric Bills: No Difficulty Paying for Meds: No Currently Unemployed: No Education: High School Diploma/GED Difficulty w/ Childcare or Family Care: No Spiritual care concerns: No Meds Home Medications and Allergies Home Medications ?Medication ?Instructions ?Recorded ?Confirmed ?Type atorvastatin 10 mg tablet 10 mg PO DAILY 05/12/23 07/30/24 History potassium chloride 10 mEq 10 meq PO DAILY 05/12/23 07/30/24 History capsule,extended release albuterol sulfate 2.5 mg/3 mL 2.5 mg inhalation Q4H PRN 07/04/23 07/30/24 History (0.083 %) solution for nebulization Shortness Of Breath Or Wheezing fluticasone fur. 100 mcg-umeclid 1 inh inhalation DAILY 07/04/23 07/31/24 History 62.5 mcg-vilant 25 mcg inhalat.powder (Trelegy Ellipta) furosemide 40 mg tablet 40 mg PO DAILY 07/04/23 07/31/24 History loratadine 10 mg tablet 10 mg PO DAILY 07/04/23 07/31/24 History montelukast 10 mg tablet 10 mg PO DAILY 07/04/23 07/31/24 History mirabegron 50 mg tablet,extended 50 mg PO DAILY 07/31/24 07/31/24 History release 24 hr (Myrbetriq) simvastatin 20 mg tablet 20 mg PO QPM 08/03/24 08/03/24 History Allergies Allergy/AdvReac Type Severity Reaction Status Date / Time No Known Allergies Allergy Mild Verified 07/30/24 12:30 Vital Signs Vital Signs - 24 hr 08/02/24 14:00 08/02/24 14:00 08/02/24 14:02 Temperature Pulse Rate 62 62 61 Respiratory Rate 16 Blood Pressure 93/50 L Pulse Oximetry 93 93 Oxygen Delivery Mechanical Ventilation Fraction of Inspired Oxygen 30 08/02/24 14:02 08/02/24 14:19 08/02/24 14:23 Temperature Pulse Rate 61 78 72 Respiratory Rate 16 16 16 Blood Pressure Pulse Oximetry Oxygen Delivery Fraction of Inspired Oxygen 08/02/24 14:24 08/02/24 14:50 08/02/24 14:50 Temperature Pulse Rate 72 73 73 Respiratory Rate 16 16 16 Blood Pressure Pulse Oximetry Oxygen Delivery Fraction of Inspired Oxygen 08/02/24 15:18 08/02/24 15:38 08/02/24 15:39 Temperature Pulse Rate 75 75 75 Respiratory Rate 16 16 16 Blood Pressure Pulse Oximetry Oxygen Delivery Fraction of Inspired Oxygen 08/02/24 16:00 08/02/24 16:00 08/02/24 16:00 Temperature 37.0 C Pulse Rate 81 Respiratory Rate 16 Blood Pressure 121/60 Pulse Oximetry 93 93 Oxygen Delivery Mechanical Ventilation Fraction of Inspired Oxygen 30 30 08/02/24 16:00 08/02/24 16:10 08/02/24 16:11 Temperature Pulse Rate 82 81 81 Respiratory Rate 16 16 Blood Pressure Pulse Oximetry Oxygen Delivery Fraction of Inspired Oxygen 08/02/24 16:53 08/02/24 18:00 08/02/24 18:00 Temperature Pulse Rate 75 73 75 Respiratory Rate 16 Blood Pressure 115/60 Pulse Oximetry 93 92 Oxygen Delivery Mechanical Ventilation Fraction of Inspired Oxygen 30 08/02/24 18:03 08/02/24 18:03 08/02/24 20:00 Temperature Pulse Rate 72 72 64 Respiratory Rate 16 16 16 Blood Pressure Pulse Oximetry Oxygen Delivery Fraction of Inspired Oxygen 08/02/24 20:00 08/02/24 20:00 08/02/24 20:00 Temperature Pulse Rate 64 64 Respiratory Rate 16 Blood Pressure Pulse Oximetry 92 Oxygen Delivery Mechanical Ventilation Fraction of Inspired Oxygen 30 08/02/24 20:00 08/02/24 20:02 08/02/24 20:03 Temperature Pulse Rate 64 62 Respiratory Rate 16 Blood Pressure Pulse Oximetry 92 Oxygen Delivery Mechanical Ventilation Fraction of Inspired Oxygen 30 30 08/02/24 20:19 08/02/24 20:24 08/02/24 20:54 Temperature 37.2 C Pulse Rate 64 65 66 Respiratory Rate 16 16 16 Blood Pressure 116/58 L Pulse Oximetry 91 Oxygen Delivery Fraction of Inspired Oxygen 08/02/24 20:54 08/02/24 22:00 08/02/24 22:00 Temperature Pulse Rate 66 59 L 59 L Respiratory Rate 16 18 18 Blood Pressure Pulse Oximetry Oxygen Delivery Fraction of Inspired Oxygen 08/02/24 22:00 08/02/24 22:08 08/02/24 23:03 Temperature 37.2 C Pulse Rate 59 L 59 L 54 L Respiratory Rate 18 16 Blood Pressure 104/52 L Pulse Oximetry 92 Oxygen Delivery Fraction of Inspired Oxygen 08/02/24 23:07 08/03/24 00:00 08/03/24 00:00 Temperature Pulse Rate 54 L 61 61 Respiratory Rate 16 16 Blood Pressure Pulse Oximetry 93 Oxygen Delivery Mechanical Ventilation Fraction of Inspired Oxygen 30 08/03/24 00:00 08/03/24 00:00 08/03/24 00:00 Temperature Pulse Rate 56 L Respiratory Rate Blood Pressure Pulse Oximetry 92 Oxygen Delivery Mechanical Ventilation Fraction of Inspired Oxygen 30 30 08/03/24 00:09 08/03/24 00:12 08/03/24 01:30 Temperature 36.6 C Pulse Rate 57 L 61 55 L Respiratory Rate 18 16 Blood Pressure 95/48 L 104/54 L Pulse Oximetry 92 Oxygen Delivery Fraction of Inspired Oxygen 08/03/24 01:30 08/03/24 02:00 08/03/24 02:00 Temperature Pulse Rate 55 L 62 62 Respiratory Rate 16 16 Blood Pressure Pulse Oximetry Oxygen Delivery Fraction of Inspired Oxygen 08/03/24 02:00 08/03/24 02:04 08/03/24 02:54 Temperature 36.8 C Pulse Rate 62 62 57 L Respiratory Rate 16 18 16 Blood Pressure 103/54 L Pulse Oximetry 93 Oxygen Delivery Fraction of Inspired Oxygen 08/03/24 02:56 08/03/24 04:00 08/03/24 04:00 Temperature Pulse Rate 57 L 65 Respiratory Rate Blood Pressure Pulse Oximetry 94 93 Oxygen Delivery Mechanical Ventilation Mechanical Ventilation Fraction of Inspired Oxygen 30 30 08/03/24 04:00 08/03/24 04:00 08/03/24 04:00 Temperature Pulse Rate 65 65 Respiratory Rate 16 16 Blood Pressure Pulse Oximetry Oxygen Delivery Fraction of Inspired Oxygen 30 08/03/24 04:38 08/03/24 04:56 08/03/24 06:00 Temperature 37.1 C Pulse Rate 70 68 70 Respiratory Rate 18 Blood Pressure 123/68 Pulse Oximetry 93 92 Oxygen Delivery Mechanical Ventilation Fraction of Inspired Oxygen 30 08/03/24 06:00 08/03/24 06:00 08/03/24 06:05 Temperature 37.1 C Pulse Rate 70 70 70 Respiratory Rate 18 18 18 Blood Pressure 126/64 Pulse Oximetry 93 Oxygen Delivery Fraction of Inspired Oxygen 08/03/24 07:13 08/03/24 07:13 08/03/24 08:00 Temperature 36.4 C Pulse Rate 70 70 72 Respiratory Rate 16 16 16 Blood Pressure 138/67 Pulse Oximetry 93 Oxygen Delivery Fraction of Inspired Oxygen 08/03/24 08:00 08/03/24 08:00 08/03/24 08:00 Temperature Pulse Rate 72 72 Respiratory Rate 18 18 Blood Pressure Pulse Oximetry Oxygen Delivery Fraction of Inspired Oxygen 30 08/03/24 08:00 08/03/24 08:00 08/03/24 08:09 Temperature Pulse Rate 72 76 Respiratory Rate Blood Pressure Pulse Oximetry 93 93 Oxygen Delivery Mechanical Ventilation Mechanical Ventilation Fraction of Inspired Oxygen 30 30 08/03/24 08:09 08/03/24 08:39 08/03/24 10:00 Temperature Pulse Rate 76 75 76 Respiratory Rate 16 16 16 Blood Pressure 139/64 Pulse Oximetry 92 Oxygen Delivery Fraction of Inspired Oxygen 08/03/24 10:00 08/03/24 10:00 08/03/24 10:00 Temperature Pulse Rate 75 75 100 Respiratory Rate 16 16 Blood Pressure Pulse Oximetry Oxygen Delivery Fraction of Inspired Oxygen 08/03/24 10:38 08/03/24 12:00 08/03/24 12:00 Temperature Pulse Rate 75 67 67 Respiratory Rate 16 16 Blood Pressure Pulse Oximetry 92 Oxygen Delivery Mechanical Ventilation Fraction of Inspired Oxygen 30 08/03/24 12:00 08/03/24 12:00 08/03/24 12:00 Temperature 36.5 C Pulse Rate 68 72 Respiratory Rate 16 Blood Pressure 111/53 L Pulse Oximetry 92 92 Oxygen Delivery Mechanical Ventilation Fraction of Inspired Oxygen 30 08/03/24 12:00 08/03/24 12:00 Temperature Pulse Rate 72 Respiratory Rate 16 Blood Pressure Pulse Oximetry Oxygen Delivery Fraction of Inspired Oxygen 30 Exam 2 Narrative: GEN: Alert, oriented, sedated; HEENT: pupils are equal, EOMI, symmetrical face; oral membranes moist, ETT in place NECK: Trachea is midline CHEST: Equal air entry, symmetric excursion, decreased breath sounds CV: Regular S1S2 no m/g/r ABD : hypoactive bowel sounds Extremities : no clubbing, cyanosis, or edema PSYCH: sedated Results Laboratory Findings 08/03/24 04:35 08/03/24 04:34 ABG, PT/INR, D-dimer: ABG ABG pH 7.418 (7.350-7.450) 08/03/24 04:59 ABG pCO2 42.6 mmHg (35.0-45.0) 08/03/24 04:59 ABG pO2 66.8 mmHg (80.0-100.0) L 08/03/24 04:59 ABG O2 Saturation 93.5 % (95.0-100.0) L 08/03/24 04:59 PT/INR, D-dimer PT 14.5 Seconds (11.1-14.7) 07/30/24 12:30 INR 1.1 07/30/24 12:30 Abnormal lab findings: Abnormal Labs 07/30/24 07/30/24 07/30/24 12:19 12:30 13:05 WBC 15.5 H RBC MCHC MPV 10.6 H Immature Gran % (Auto) Neut % (Auto) Lymph % (Auto) Abs Immat Gran (auto) Absolute Nucleated RBC Neutrophils % (Manual) Lymphocytes % (Manual) Nucleated RBC % Abs Neuts (Manual) Abs Lymphs (Manual) 5.42 H ABG pH 7.219 L* ABG pCO2 77.9 H* ABG pO2 ABG HCO3 31.1 H ABG O2 Saturation VBG pH 7.244 L* VBG pCO2 68.6 H* VBG pO2 48.0 H VBG HCO3 Reduced Hemoglobin Chloride Carbon Dioxide 34 H Anion Gap BUN 28 H Glucose 217 H POC Capillary Glucose Magnesium AST 68 H ALT 103 H Alkaline Phosphatase 183 H Troponin I 0.307 H* C-Reactive Protein NT-Pro-B Natriuret Pep 7930 H Total Protein Albumin Triglycerides Ur Specific [place] Urine Protein Ur Blood (Man) Urine Nitrate Urine RBC Vancomycin Trough 07/30/24 07/30/24 07/30/24 17:45 21:25 22:05 WBC RBC MCHC MPV Immature Gran % (Auto) Neut % (Auto) Lymph % (Auto) Abs Immat Gran (auto) Absolute Nucleated RBC Neutrophils % (Manual) Lymphocytes % (Manual) Nucleated RBC % Abs Neuts (Manual) Abs Lymphs (Manual) ABG pH ABG pCO2 46.4 H ABG pO2 ABG HCO3 28.2 H ABG O2 Saturation VBG pH 7.247 L* VBG pCO2 74.0 H* VBG pO2 71.2 H VBG HCO3 31.5 H Reduced Hemoglobin Chloride Carbon Dioxide Anion Gap BUN Glucose POC Capillary Glucose Magnesium AST ALT Alkaline Phosphatase Troponin I 0.262 H* C-Reactive Protein NT-Pro-B Natriuret Pep Total Protein Albumin Triglycerides Ur Specific [place] Urine Protein Ur Blood (Man) Urine Nitrate Urine RBC Vancomycin Trough 07/30/24 07/31/24 07/31/24 22:07 00:22 03:40 WBC RBC MCHC 31.9 L MPV 10.6 H Immature Gran % (Auto) 3.8 H Neut % (Auto) 75.2 H Lymph % (Auto) 12.0 L Abs Immat Gran (auto) 0.29 H Absolute Nucleated RBC 0.030 H Neutrophils % (Manual) Lymphocytes % (Manual) Nucleated RBC % 0.4 H Abs Neuts (Manual) Abs Lymphs (Manual) ABG pH ABG pCO2 ABG pO2 ABG HCO3 ABG O2 Saturation VBG pH VBG pCO2 VBG pO2 VBG HCO3 Reduced Hemoglobin Chloride Carbon Dioxide Anion Gap BUN Glucose POC Capillary Glucose 157 H Magnesium AST ALT Alkaline Phosphatase Troponin I C-Reactive Protein NT-Pro-B Natriuret Pep Total Protein Albumin Triglycerides Ur Specific [place] > 1.045 H Urine Protein 2+ H Ur Blood (Man) 1+ H Urine Nitrate Positive H Urine RBC 6-10 H Vancomycin Trough 07/31/24 07/31/24 07/31/24 03:53 05:55 06:40 WBC RBC MCHC MPV Immature Gran % (Auto) Neut % (Auto) Lymph % (Auto) Abs Immat Gran (auto) Absolute Nucleated RBC Neutrophils % (Manual) Lymphocytes % (Manual) Nucleated RBC % Abs Neuts (Manual) Abs Lymphs (Manual) ABG pH ABG pCO2 ABG pO2 ABG HCO3 28.7 H ABG O2 Saturation VBG pH VBG pCO2 VBG pO2 VBG HCO3 Reduced Hemoglobin Chloride Carbon Dioxide Anion Gap BUN 26 H Glucose 141 H POC Capillary Glucose 140 H Magnesium 2.5 H AST 37 H ALT 69 H Alkaline Phosphatase 145 H Troponin I C-Reactive Protein NT-Pro-B Natriuret Pep Total Protein Albumin 3.3 L Triglycerides Ur Specific [place] Urine Protein Ur Blood (Man) Urine Nitrate Urine RBC Vancomycin Trough 07/31/24 07/31/24 07/31/24 11:59 18:06 23:06 WBC RBC MCHC MPV Immature Gran % (Auto) Neut % (Auto) Lymph % (Auto) Abs Immat Gran (auto) Absolute Nucleated RBC Neutrophils % (Manual) Lymphocytes % (Manual) Nucleated RBC % Abs Neuts (Manual) Abs Lymphs (Manual) ABG pH ABG pCO2 ABG pO2 ABG HCO3 ABG O2 Saturation VBG pH VBG pCO2 VBG pO2 VBG HCO3 Reduced Hemoglobin Chloride Carbon Dioxide Anion Gap BUN Glucose POC Capillary Glucose 147 H 160 H 200 H Magnesium AST ALT Alkaline Phosphatase Troponin I C-Reactive Protein NT-Pro-B Natriuret Pep Total Protein Albumin Triglycerides Ur Specific [place] Urine Protein Ur Blood (Man) Urine Nitrate Urine RBC Vancomycin Trough 08/01/24 08/01/24 08/01/24 04:27 05:13 09:08 WBC 11.7 H RBC MCHC MPV Immature Gran % (Auto) Neut % (Auto) Lymph % (Auto) Abs Immat Gran (auto) Absolute Nucleated RBC Neutrophils % (Manual) 77 H Lymphocytes % (Manual) 13.0 L Nucleated RBC % Abs Neuts (Manual) 9.71 H Abs Lymphs (Manual) ABG pH ABG pCO2 57.3 H ABG pO2 ABG HCO3 32.2 H ABG O2 Saturation VBG pH VBG pCO2 VBG pO2 VBG HCO3 Reduced Hemoglobin Chloride 108 H Carbon Dioxide 36 H Anion Gap 0 L BUN 40 H D Glucose 157 H POC Capillary Glucose Magnesium 2.6 H AST ALT 55 H Alkaline Phosphatase Troponin I C-Reactive Protein 14.7 H NT-Pro-B Natriuret Pep Total Protein Albumin 3.4 L Triglycerides Ur Specific [place] Urine Protein Ur Blood (Man) Urine Nitrate Urine RBC Vancomycin Trough 9.3 L 08/01/24 08/01/24 08/01/24 11:52 17:14 23:51 WBC RBC MCHC MPV Immature Gran % (Auto) Neut % (Auto) Lymph % (Auto) Abs Immat Gran (auto) Absolute Nucleated RBC Neutrophils % (Manual) Lymphocytes % (Manual) Nucleated RBC % Abs Neuts (Manual) Abs Lymphs (Manual) ABG pH ABG pCO2 ABG pO2 ABG HCO3 ABG O2 Saturation VBG pH VBG pCO2 VBG pO2 VBG HCO3 Reduced Hemoglobin Chloride Carbon Dioxide Anion Gap BUN Glucose POC Capillary Glucose 172 H 193 H 184 H Magnesium AST ALT Alkaline Phosphatase Troponin I C-Reactive Protein NT-Pro-B Natriuret Pep Total Protein Albumin Triglycerides Ur Specific [place] Urine Protein Ur Blood (Man) Urine Nitrate Urine RBC Vancomycin Trough 08/02/24 08/02/24 08/02/24 03:28 05:37 05:44 WBC 14.5 H RBC MCHC 30.6 L MPV Immature Gran % (Auto) Neut % (Auto) Lymph % (Auto) Abs Immat Gran (auto) Absolute Nucleated RBC Neutrophils % (Manual) Lymphocytes % (Manual) Nucleated RBC % Abs Neuts (Manual) 11.16 H Abs Lymphs (Manual) ABG pH ABG pCO2 50.3 H ABG pO2 79.1 L ABG HCO3 28.3 H ABG O2 Saturation VBG pH VBG pCO2 VBG pO2 VBG HCO3 Reduced Hemoglobin Chloride 108 H Carbon Dioxide 32 H Anion Gap 1 L BUN 46 H Glucose 188 H POC Capillary Glucose 161 H Magnesium 2.6 H AST ALT 51 H Alkaline Phosphatase Troponin I C-Reactive Protein NT-Pro-B Natriuret Pep Total Protein Albumin 3.3 L Triglycerides Ur Specific [place] Urine Protein Ur Blood (Man) Urine Nitrate Urine RBC Vancomycin Trough 08/02/24 08/02/2408/02/24 12:01 17:32 23:47 WBC RBC MCHC MPV Immature Gran % (Auto) Neut % (Auto) Lymph % (Auto) Abs Immat Gran (auto) Absolute Nucleated RBC Neutrophils % (Manual) Lymphocytes % (Manual) Nucleated RBC % Abs Neuts (Manual) Abs Lymphs (Manual) ABG pH ABG pCO2 ABG pO2 ABG HCO3 ABG O2 Saturation VBG pH VBG pCO2 VBG pO2 VBG HCO3 Reduced Hemoglobin Chloride Carbon Dioxide Anion Gap BUN Glucose POC Capillary Glucose 169 H 208 H 173 H Magnesium AST ALT Alkaline Phosphatase Troponin I C-Reactive Protein NT-Pro-B Natriuret Pep Total Protein Albumin Triglycerides Ur Specific [place] Urine Protein Ur Blood (Man) Urine Nitrate Urine RBC Vancomycin Trough 08/03/24 08/03/24 08/03/24 04:34 04:35 04:59 WBC 10.7 H RBC 3.93 L MCHC 31.1 L MPV Immature Gran % (Auto) Neut % (Auto) Lymph % (Auto) Abs Immat Gran (auto) Absolute Nucleated RBC Neutrophils % (Manual) 78 H Lymphocytes % (Manual) 14.0 L Nucleated RBC % Abs Neuts (Manual) 8.56 H Abs Lymphs (Manual) ABG pH ABG pCO2 ABG pO2 66.8 L ABG HCO3 26.9 H ABG O2 Saturation 93.5 L VBG pH VBG pCO2 VBG pO2 VBG HCO3 Reduced Hemoglobin 7.6 H Chloride 109 H Carbon Dioxide 35 H Anion Gap -2 L BUN 42 H Glucose 183 H POC Capillary Glucose Magnesium 2.5 H AST 46 H ALT 62 H Alkaline Phosphatase Troponin I C-Reactive Protein NT-Pro-B Natriuret Pep Total Protein 6.0 L Albumin 3.0 L Triglycerides 182 H Ur Specific [place] Urine Protein Ur Blood (Man) Urine Nitrate Urine RBC Vancomycin Trough 08/03/24 08/03/24 05:54 11:22 WBC RBC MCHC MPV Immature Gran % (Auto) Neut % (Auto) Lymph % (Auto) Abs Immat Gran (auto) Absolute Nucleated RBC Neutrophils % (Manual) Lymphocytes % (Manual) Nucleated RBC % Abs Neuts (Manual) Abs Lymphs (Manual) ABG pH ABG pCO2 ABG pO2 ABG HCO3 ABG O2 Saturation VBG pH VBG pCO2 VBG pO2 VBG HCO3 Reduced Hemoglobin Chloride Carbon Dioxide Anion Gap BUN Glucose POC Capillary Glucose 164 H 193 H Magnesium AST ALT Alkaline Phosphatase Troponin I C-Reactive Protein NT-Pro-B Natriuret Pep Total Protein Albumin Triglycerides Ur Specific [place] Urine Protein Ur Blood (Man) Urine Nitrate Urine RBC Vancomycin Trough
[2024-08-03] MEDS: LIDOCAINE 1% LOCAL INJ 20 ML VIAL INFILTRATE (14:30)
[2024-08-03] MEDS: MIDAZOLAM HCL (*CRX) 2 MG/2 ML VIAL 4 MG IV PUSH (14:37)
[2024-08-03] MEDS: LIDOCAINE 2% VISC SOLN 15 ML UDC (14:38)
[2024-08-03] MEDS: fentaNYL CITRATE INJ (*CRX) 100 MCG/2 ML VIAL IV PUSH (14:39)
--- NOTE | 2024-08-03 16:04 | PM.IMPN ---
Progress Note: A&P Assessment and Plan (1) Acute hypercapnic respiratory failure: Code(s): J96.02 - Acute respiratory failure with hypercapnia Status: Acute Assessment and Plan: 07/30: Patient presented with acute hypoxic and hypercarbic respiratory failure. 07/30: Failed trial of BiPAP in the ER and was intubated -currently on CMV mode of ventilation, peep of 5, 30% FiO2, wean O2 to maintain O2 sats > 90-92%, -patient continues to wheeze, continue Solu-Medrol for now -continue ceftriaxone, doxycycline (07/30) -discontinue vancomycin (08/03) -influenza, RSV, COVID negative -sedated with fentanyl propofol infusion, maintain RASS of 0 to-2, daily SBT and SAT -patient has thick secretions, continue Mucomyst and Pulmozyme -continue DuoNebs -08/03: FiO2 of 30% and PEEP of 5. Continues to have thick h[place]go secretions for which she is already on Mucomyst and Pulmozyme. Will consult pulmonology for bronchoscopy for BAL culture (2) Acute exacerbation of chronic obstructive pulmonary disease: Code(s): J44.1 - Chronic obstructive pulmonary disease with (acute) exacerbation Status: Acute Assessment and Plan: Continue bronchodilators, steroids and antibiotics, currently on mechanical ventilation (3) Pneumonia: Code(s): J18.9 - Pneumonia, unspecified organism Status: Acute Assessment and Plan: Continue antibiotics, bronchodilators -07/30: Preliminary blood cultures are negative x2 -07/30: Urine cultures are negative -08/01: Sputum cultures no growth so far (4) Diabetes: Code(s): E11.9 - Type 2 diabetes mellitus without complications Status: Acute Assessment and Plan: Continue sliding scale insulin and Accu-Cheks -hemoglobin A1c 5.7 this admission (5) Elevated troponin: Code(s): R79.89 - Other specified abnormal findings of blood chemistry Status: Acute Assessment and Plan: Elevated troponin, trending down, likely related to type 2 infarct secondary severe hypoxia as patient was saturating 44% on room air upon arrival of the EMS at her house -there was no complains of chest pain -consult for severely reduced systolic function. Will await recommendations -started on Lasix, 08/01: Echocardiogram ummary 1. Very technically difficult study with limited views. 2. The left ventricle grossly appears normal size and systolic function in the available and technically difficult views that were obtained in this study. 3. The right ventricle appears dilated with severely reduced systolic function in the available and technically difficult views that were obtained in this study. 4. Dilated inferior vena cava with <50% collapse upon inspiration consistent with significantly elevated right atrial pressure, 15 mmHg. (6) Electrolyte abnormality: Code(s): E87.8 - Other disorders of electrolyte and fluid balance, not elsewhere classified Status: Acute Assessment and Plan: Potassium and magnesium normalized after replacement yesterday Plan DVT prophylaxis: Lovenox Stress ulcer prophylaxis: Protonix Nutrition: Tolerating tube feeds, continue Code Status: Full code Subjective Date/time seen: 08/03/24 16:04 Interval history: Patient intubated and sedated Review of Systems Review of Systems: ROS unobtainable: Yes unobtainable due to endotracheal tube, unobtainable due to medical condition and unobtainable due to mental status Exam Narrative: General: Intubated and sedated, in mild respiratory distress HEENT:? Pupils equal and reactive, sclerae is care, ETT in place Neck:? Supple Respiratory:? Coarse breath sounds bilaterally, diffuse expiratory wheeze more on right this morning, mild rales on the right side, decreased air entry Cardiac:? S1-S2 normal, regular rate and rhythm Abdomen:? Soft, nontender, nondistended, obese, normoactive bowel sound Extremities:? No edema, palpable pedal pulse Neuro:? Patient is intubated, sedated, does not open her eyes or follow simple commands this morning, withdraws to pain in all extremities Skin:? No skin lesions noted Psych:? Unable to assess at this time Objective Data Vital Signs Vital Signs: Vital Signs - 24 hr 08/02/24 16:10 08/02/24 16:11 08/02/24 16:53 Temperature Pulse Rate 81 81 75 Respiratory Rate 16 16 Blood Pressure Pulse Oximetry 93 Oxygen Delivery Mechanical Ventilation Fraction of Inspired Oxygen 30 08/02/24 18:00 08/02/24 18:00 08/02/24 18:03 Temperature Pulse Rate 73 75 72 Respiratory Rate 16 16 Blood Pressure 115/60 Pulse Oximetry 92 Oxygen Delivery Fraction of Inspired Oxygen 08/02/24 18:03 08/02/24 20:00 08/02/24 20:00 Temperature Pulse Rate 72 64 64 Respiratory Rate 16 16 16 Blood Pressure Pulse Oximetry Oxygen Delivery Fraction of Inspired Oxygen 08/02/24 20:00 08/02/24 20:00 08/02/24 20:00 Temperature Pulse Rate 64 Respiratory Rate Blood Pressure Pulse Oximetry 92 Oxygen Delivery Mechanical Ventilation Fraction of Inspired Oxygen 30 30 08/02/24 20:02 08/02/24 20:03 08/02/24 20:19 Temperature 98.9 F Pulse Rate 64 62 64 Respiratory Rate 16 16 Blood Pressure 116/58 L Pulse Oximetry 92 91 Oxygen Delivery Mechanical Ventilation Fraction of Inspired Oxygen 30 08/02/24 20:24 08/02/24 20:54 08/02/24 20:54 Temperature Pulse Rate 65 66 66 Respiratory Rate 16 16 16 Blood Pressure Pulse Oximetry Oxygen Delivery Fraction of Inspired Oxygen 08/02/24 22:00 08/02/24 22:00 08/02/24 22:00 Temperature Pulse Rate 59 L 59 L 59 L Respiratory Rate 18 18 Blood Pressure Pulse Oximetry Oxygen Delivery Fraction of Inspired Oxygen 08/02/24 22:08 08/02/24 23:03 08/02/24 23:07 Temperature 98.9 F Pulse Rate 59 L 54 L 54 L Respiratory Rate 18 16 Blood Pressure 104/52 L Pulse Oximetry 92 93 Oxygen Delivery Mechanical Ventilation Fraction of Inspired Oxygen 30 08/03/24 00:00 08/03/24 00:00 08/03/24 00:00 Temperature Pulse Rate 61 61 Respiratory Rate 16 16 Blood Pressure Pulse Oximetry 92 Oxygen Delivery Mechanical Ventilation Fraction of Inspired Oxygen 30 08/03/24 00:00 08/03/24 00:00 08/03/24 00:09 Temperature 98 F Pulse Rate 56 L 57 L Respiratory Rate 18 Blood Pressure 95/48 L Pulse Oximetry 92 Oxygen Delivery Fraction of Inspired Oxygen 30 08/03/24 00:12 08/03/24 01:30 08/03/24 01:30 Temperature Pulse Rate 61 55 L 55 L Respiratory Rate 16 16 Blood Pressure 104/54 L Pulse Oximetry Oxygen Delivery Fraction of Inspired Oxygen 08/03/24 02:00 08/03/24 02:00 08/03/24 02:00 Temperature Pulse Rate 62 62 62 Respiratory Rate 16 16 Blood Pressure Pulse Oximetry Oxygen Delivery Fraction of Inspired Oxygen 08/03/24 02:04 08/03/24 02:54 08/03/24 02:56 Temperature 98.2 F Pulse Rate 62 57 L 57 L Respiratory Rate 18 16 Blood Pressure 103/54 L Pulse Oximetry 93 94 Oxygen Delivery Mechanical Ventilation Fraction of Inspired Oxygen 30 08/03/24 04:00 08/03/24 04:00 08/03/24 04:00 Temperature Pulse Rate 65 Respiratory Rate Blood Pressure Pulse Oximetry 93 Oxygen Delivery Mechanical Ventilation Fraction of Inspired Oxygen 30 30 08/03/24 04:00 08/03/24 04:00 08/03/24 04:38 Temperature 98.8 F Pulse Rate 65 65 70 Respiratory Rate 16 16 18 Blood Pressure 123/68 Pulse Oximetry 93 Oxygen Delivery Fraction of Inspired Oxygen 08/03/24 04:56 08/03/24 06:00 08/03/24 06:00 Temperature Pulse Rate 68 70 70 Respiratory Rate 18 Blood Pressure Pulse Oximetry 92 Oxygen Delivery Mechanical Ventilation Fraction of Inspired Oxygen 30 08/03/24 06:00 08/03/24 06:05 08/03/24 07:13 Temperature 98.8 F Pulse Rate 70 70 70 Respiratory Rate 18 18 16 Blood Pressure 126/64 Pulse Oximetry 93 Oxygen Delivery Fraction of Inspired Oxygen 08/03/24 07:13 08/03/24 08:00 08/03/24 08:00 Temperature 97.6 F Pulse Rate 70 72 Respiratory Rate 16 16 Blood Pressure 138/67 Pulse Oximetry 93 Oxygen Delivery Fraction of Inspired Oxygen 30 08/03/24 08:00 08/03/24 08:00 08/03/24 08:00 Temperature Pulse Rate 72 72 Respiratory Rate 18 18 Blood Pressure Pulse Oximetry 93 Oxygen Delivery Mechanical Ventilation Fraction of Inspired Oxygen 30 08/03/24 08:00 08/03/24 08:09 08/03/24 08:09 Temperature Pulse Rate 72 76 76 Respiratory Rate 16 Blood Pressure Pulse Oximetry 93 Oxygen Delivery Mechanical Ventilation Fraction of Inspired Oxygen 30 08/03/24 08:39 08/03/24 10:00 08/03/24 10:00 Temperature Pulse Rate 75 76 75 Respiratory Rate 16 16 16 Blood Pressure 139/64 Pulse Oximetry 92 Oxygen Delivery Fraction of Inspired Oxygen 08/03/24 10:00 08/03/24 10:00 08/03/24 10:38 Temperature Pulse Rate 75 100 75 Respiratory Rate 16 Blood Pressure Pulse Oximetry 92 Oxygen Delivery Mechanical Ventilation Fraction of Inspired Oxygen 30 08/03/24 12:00 08/03/24 12:00 08/03/24 12:00 Temperature 97.7 F Pulse Rate 67 67 68 Respiratory Rate 16 16 16 Blood Pressure 111/53 L Pulse Oximetry 92 Oxygen Delivery Fraction of Inspired Oxygen 08/03/24 12:00 08/03/24 12:00 08/03/24 12:00 Temperature Pulse Rate 72 Respiratory Rate Blood Pressure Pulse Oximetry 92 Oxygen Delivery Mechanical Ventilation Fraction of Inspired Oxygen 30 30 08/03/24 12:00 08/03/24 13:50 08/03/24 13:50 Temperature Pulse Rate 72 85 85 Respiratory Rate 16 16 Blood Pressure Pulse Oximetry 92 Oxygen Delivery Mechanical Ventilation Fraction of Inspired Oxygen 30 08/03/24 13:59 08/03/24 14:00 08/03/24 14:00 Temperature Pulse Rate 90 89 89 Respiratory Rate 16 16 Blood Pressure 116/50 L Pulse Oximetry 94 Oxygen Delivery Fraction of Inspired Oxygen Intake/Output Intake/Output: Intake & Output 07/31/24 08/01/24 08/02/24 08/03/24 23:59 23:59 23:59 23:59 Intake Total 1774.1 2510.3 3843.4 1839.8 Output Total 0582 104 5174 3300 Balance 599.1 1560.3 2593.4 -1460.2 Meds/Results Medications: Active Medications Generic Name Dose Route Start Last Admin Trade Name Freq PRN Reason Stop Dose Admin Acetylcysteine 200 mg 08/01/24 08:00 08/03/24 13:50 Acetylcysteine 20% Inhal Soln 800 Mg/4 Ml Vial INHALATION Not Given Q6HRT RAISSA Albuterol/Ipratropium 3 ml 08/01/24 14:00 08/03/24 13:49 Ipratropium 0.5 Mg/Albuterol Sulfate 2.5 Mg Ampul.Neb 3 Ml INHALATION 3 ml Q6HRT RAISSA Administration Atorvastatin Calcium 10 mg 07/31/24 21:00 08/02/24 20:30 Atorvastatin 10 Mg Tablet PO 10 mg QHS RAISSA Administration Bisacodyl 10 mg 07/30/24 20:15 Bisacodyl 10 Mg Suppository RECTAL ONCE PRN Constipation Dextrose 12.5 gm 07/31/24 00:46 Dextrose 50% 25 Gm/50 Ml Syringe IV PUSH PRN PRN Hypoglycemia Protocol Dornase Gerald 2.5 mg 08/01/24 08:00 08/03/24 08:20 Dornase Gerald Inh Soln 1 Mg/Ml 2.5 Ml Amp INHALATION 08/06/24 23:59 2.5 mg Q12HRT RAISSA Administration Enoxaparin Sodium 40 mg 07/31/24 09:00 08/03/24 08:23 Enoxaparin 40 Mg/0.4 Ml Syringe SUB-Q 40 mg DAILY RAISSA Administration Fluticasone/Umeclidinium/Vilanterol 1 puff 07/31/24 09:45 08/03/24 08:12 Fluticasone/Umeclidin/Vilanter 100-62.5-25 Mcg Ellipta INHALATION Not Given DAILYRT RAISSA Glucagon 1 mg 07/31/24 00:46 Glucagon For Inj 1 Mg Vial IM PRN PRN Hypoglycemia Protocol Glucose 15 gm 07/31/24 00:46 Glucose Oral Gel 15 Gm Of Glucse In 37.5 Gm Tube PO PRN PRN Hypoglycemia Protocol Ceftriaxone Sodium 2 gm in 100 mls @ 200 mls/hr 07/31/24 00:00 08/03/24 00:09 Rocephin 2 Gm/Ns 100 Ml IVPB Infused Q24H RAISSA Infusion Azithromycin 500 mg in 250 mls @ 250 mls/hr 07/31/24 01:00 08/03/24 06:55 Zithromax IVPB Infused Q24H RAISSA Infusion Dextrose 1,000 mls @ 100 mls/hr 07/31/24 00:46 Dextrose 5% 1,000 Ml IVPB PRN PRN Hypoglycemia Protocol Fentanyl Citrate 2,500 mcg in 250 mls @ 5 mls/hr 07/31/24 01:55 08/03/24 12:00 Fentanyl 2,500 Mcg/Ns 250 Ml IV CONT 50 mcg/hr .Q50H RAISSA 5 mls/hr Titration Protocol 50 MCG/HR Propofol 100 mls @ 17.01 mls/hr 08/01/24 07:55 08/03/24 12:00 Diprivan IV CONT 25 mcg/kg/min .Q5H53M RAISSA 17.01 mls/hr Administration Protocol 25 MCG/KG/MIN Vancomycin HCl 1,500 mg in 500 mls @ 250 mls/hr 08/03/24 00:00 08/03/24 12:07 Vancomycin 1,500 Mg/Ns 500 Ml IVPB 250 mls/hr Q12H RAISSA Administration Insulin Aspart 3 - 6 units 07/31/24 06:00 08/03/24 11:34 Insulin Aspart (*Bkc) 100 Units/Ml SUB-Q Not Given Q6HR RAISSA Protocol Magnesium Hydroxide 30 ml 07/30/24 20:15 Magnesium Hydroxide Susp 30 Ml Udc FEED TUBE DAILY PRN Constipation Methylprednisolone Sodium Succinate 40 mg 07/30/24 18:00 08/03/24 12:07 Methylprednisolone Sod Succ 40 Mg Vial IV PUSH 40 mg Q6H RAISSA Administration Midazolam HCl 2 mg 07/30/24 20:27 07/30/24 21:14 Midazolam Hcl (*Crx) 2 Mg/2 Ml Vial IV PUSH 2 mg ONCE PRN Administration Agitation Miscellaneous Information 1 each 08/03/24 00:01 08/03/24 09:35 Propofol Needs To Be Renewed Or It Will Automatically Discontinue. XX 09/02/24 00:00 Not Given CLARIFY RAISSA Multi-Ingred Cream/Lotion/Oil/Oint 1 applic 07/31/24 09:00 08/03/24 08:23 Mineral Oil/White Petrolatum Ointment EACH EYE 1 applic Q12HR RAISSA Administration Pantoprazole Sodium 40 mg 07/31/24 09:00 08/03/24 08:23 Pantoprazole Sodium Iv 40 Mg Vial IV PUSH 40 mg DAILY RAISSA Administration Polyethylene Glycol 17 gm 08/02/24 11:00 Polyethylene Glycol 3350 17 Gm Powd.Pack PO QAM PRN Constipation Senna/Docusate Sodium 1 tab 08/02/24 21:00 08/02/24 20:29 Senna/Docusate Sodium Tablet PO 1 tab HS RAISSA Administration Sodium Chloride 10 ml 08/02/24 14:00 08/03/24 12:09 Central Line Flush IV PUSH 10 ml Q8HR RAISSA Administration Sodium Chloride 20 ml 08/02/24 09:06 Central Line Flush IV PUSH PRN PRN after blood draws Radiology Results: ITS Impressions Chest CTA 07/30/24 16:19 IMPRESSION: Right lung atelectasis including particularly upper and lower lobes; which may be due to malignant or radiation stricture of the right bronchial airways. Consider PET/CT correlation No pulmonary embolism Abdomen X-Ray 07/31/24 05:45 IMPRESSION: 1. Nonobstructive bowel gas pattern. Chest X-Ray 08/03/24 06:21 IMPRESSION: 1. Stable airspace opacities in right perihilar region and right upper lobe, likely radiation pneumonitis. 2. Airspace opacities in the lower lung zones with worsening on the left, consistent with atelectasis versus pneumonia. 3. Cardiomegaly. Labs Labs: Laboratory Results - last 24 hr 08/02/24 08/02/24 08/02/24 17:32 22:00 23:47 WBC RBC Hgb Hct MCV MCH MCHC RDW Plt Count MPV Immature Gran % (Auto) Neut % (Auto) Lymph % (Auto) [facility] % (Auto) Eos % (Auto) Baso % (Auto) Lymph # (Auto) [facility] # (Auto) Eos # (Auto) Baso # (Auto) Abs Immat Gran (auto) Absolute Neuts (auto) Absolute Nucleated RBC Total Counted Neutrophils % (Manual) Band Neutrophils % Lymphocytes % (Manual) Monocytes % (Manual) Nucleated RBC % Abs Neuts (Manual) Abs Lymphs (Manual) Abs Monocytes (Manual) Nucleated RBCs Platelet Estimate Large Platelets Ovalocytes Schistocytes Puncture Site ABG pH ABG pCO2 ABG pO2 ABG PO2/FiO2 Ratio ABG HCO3 ABG O2 Saturation ABG O2 Content ABG Base Excess A-a Gradient Oxyhemoglobin Carboxyhemoglobin Methemoglobin Reduced Hemoglobin Total Hemoglobin O2 Delivery Device O2 Liters/Min Minute Volume Vent Rate Vent Mode FiO2 Tidal Volume PEEP Peak Inspir Pressure Pressure Support Sodium Potassium Chloride Carbon Dioxide Anion Gap BUN Creatinine Estim Creat Clear Calc Estimated GFR Glucose POC Capillary Glucose 208 H 173 H Calcium Phosphorus Magnesium Total Bilirubin AST ALT Alkaline Phosphatase Total Protein Albumin Triglycerides Vancomycin Trough 16.2 08/03/24 08/03/24 08/03/24 04:34 04:35 04:59 WBC 10.7 H RBC 3.93 L Hgb 12.1 Hct 38.9 MCV 99.0 MCH 30.8 MCHC 31.1 L RDW 14.0 Plt Count 220 MPV 10.4 Immature Gran % (Auto) Not Reportable Neut % (Auto) Not Reportable Lymph % (Auto) Not Reportable [facility] % (Auto) Not Reportable Eos % (Auto) Not Reportable Baso % (Auto) Not Reportable Lymph # (Auto) Not Reportable [facility] # (Auto) Not Reportable Eos # (Auto) Not Reportable Baso # (Auto) Not Reportable Abs Immat Gran (auto) Not Reportable Absolute Neuts (auto) Not Reportable Absolute Nucleated RBC Not Reportable Total Counted 100 Neutrophils % (Manual) 78 H Band Neutrophils % 2 Lymphocytes % (Manual) 14.0 L Monocytes % (Manual) 6 Nucleated RBC % Not Reportable Abs Neuts (Manual) 8.56 H Abs Lymphs (Manual) 1.49 Abs Monocytes (Manual) 0.64 Nucleated RBCs 2 Platelet Estimate Adequate Large Platelets Present Ovalocytes 1+ Schistocytes None seen Puncture Site Right radial ABG pH 7.418 ABG pCO2 42.6 ABG pO2 66.8 L ABG PO2/FiO2 Ratio 2.23 ABG HCO3 26.9 H ABG O2 Saturation 93.5 L ABG O2 Content 17.1 ABG Base Excess 2.1 A-a Gradient 97.0 Oxyhemoglobin 92.0 Carboxyhemoglobin 0.3 Methemoglobin 0.1 Reduced Hemoglobin 7.6 H Total Hemoglobin 13.2 O2 Delivery Device Ventilator O2 Liters/Min Not Reportable Minute Volume Not Reportable Vent Rate 16 Vent Mode Cmv FiO2 30 Tidal Volume 480 PEEP 5 Peak Inspir Pressure Not Reportable Pressure Support Not Reportable Sodium 142 Potassium 4.2 Chloride 109 H Carbon Dioxide 35 H Anion Gap -2 L BUN 42 H Creatinine 0.70 Estim Creat Clear Calc 70 Estimated GFR > 60 Glucose 183 H POC Capillary Glucose Calcium 9.0 Phosphorus 3.7 Magnesium 2.5 H Total Bilirubin 0.4 AST 46 H ALT 62 H Alkaline Phosphatase 84 Total Protein 6.0 L Albumin 3.0 L Triglycerides 182 H Vancomycin Trough 08/03/24 08/03/24 05:54 11:22 WBC RBC Hgb Hct MCV MCH MCHC RDW Plt Count MPV Immature Gran % (Auto) Neut % (Auto) Lymph % (Auto) [facility] % (Auto) Eos % (Auto) Baso % (Auto) Lymph # (Auto) [facility] # (Auto) Eos # (Auto) Baso # (Auto) Abs Immat Gran (auto) Absolute Neuts (auto) Absolute Nucleated RBC Total Counted Neutrophils % (Manual) Band Neutrophils % Lymphocytes % (Manual) Monocytes % (Manual) Nucleated RBC % Abs Neuts (Manual) Abs Lymphs (Manual) Abs Monocytes (Manual) Nucleated RBCs Platelet Estimate Large Platelets Ovalocytes Schistocytes Puncture Site ABG pH ABG pCO2 ABG pO2 ABG PO2/FiO2 Ratio ABG HCO3 ABG O2 Saturation ABG O2 Content ABG Base Excess A-a Gradient Oxyhemoglobin Carboxyhemoglobin Methemoglobin Reduced Hemoglobin Total Hemoglobin O2 Delivery Device O2 Liters/Min Minute Volume Vent Rate Vent Mode FiO2 Tidal Volume PEEP Peak Inspir Pressure Pressure Support Sodium Potassium Chloride Carbon Dioxide Anion Gap BUN Creatinine Estim Creat Clear Calc Estimated GFR Glucose POC Capillary Glucose 164 H 193 H Calcium Phosphorus Magnesium Total Bilirubin AST ALT Alkaline Phosphatase Total Protein Albumin Triglycerides Vancomycin Trough Quality VTE Prophylaxis VTE prophylaxis: pharmacologic ordered
[2024-08-03 17:44] LABS: Glucose Point of Care 164 mg/dl (65-105)
[2024-08-03] MEDS: polyethylene glycoL 3350 17 GM POWD.PACK PO (17:47)
[2024-08-03] MEDS: ATORVASTATIN 10 MG TABLET PO (20:28)
[2024-08-03] MEDS: SENNA/DOCUSATE SODIUM TABLET 1 TAB PO (20:28)
[2024-08-04] VITALS (38 sets, daily range): BP systolic 105–164; BP diastolic 55–78; PULSE 55–108; RESP 16–24; TEMP 37–37.7; O2SAT 90–96
[2024-08-04] MEDS: cefTRIAXone 2 GM/NS 100 ML 2 GM/100 ML BAG IVPB (00:37)
[2024-08-04] MEDS: VANCOMYCIN 1,500 MG/NS 500 ML 1,500 MG/500 ML BAG 250 MG IVPB (00:38)
[2024-08-04] MEDS: AZITHROMYCIN 500 MG/NS 250 ML 500 MG/250 ML BAG 250 MG IVPB (00:38)
[2024-08-04] MEDS: methylPREDNISolone SOD SUCC 40 MG VIAL IV PUSH ×3 (00:40→11:53)
[2024-08-04 01:02] LABS: Glucose Point of Care 161 mg/dl (65-105)
[2024-08-04] MEDS: IPRATROPIUM 0.5 MG/ALBUTEROL SULFATE 2.5 MG AMPUL.NEB 3 ML INHALATION ×4 (03:14→22:00)
[2024-08-04] MEDS: ACETYLCYSTEINE 20% INHAL SOLN 800 MG/4 ML VIAL 200 MG INHALATION ×4 (03:14→21:59)
[2024-08-04] MEDS: PROPOFOL IV EMULSION 100 ML 13.61 MG IV CONT (04:16)
[2024-08-04 05:02] LABS: Hematocrit 39.4 % (37.0-47.0); Hemoglobin 12.4 g/dL (12.0-15.0); Mean Corpuscular HGB Conc 31.5 g/dl (32-36); Mean Corpuscular Hemoglobin 31.2 pg (26-34); Mean Platelet Volume 10.7 fl (7.4-10.4); Platelet Count Result 189 k/mm3 (150-375); Red Blood Count 3.98 M/mm3 (4.2-5.4); White Blood Count 11.8 K/mm3 (4.5-10.0)
[2024-08-04 05:11] LABS: Alanine Aminotransferase 107 U/L (6-35); Alkaline Phosphatase 88 U/L (38-126); Anion Gap 0 mmol/L (4-12); Aspartate Amino Transferase 72 U/L (14-36); Bilirubin,Total 0.6 mg/dL (0.2-1.3); Blood Urea Nitrogen 45 mg/dL (7-17); Calcium 8.7 mg/dL (8.4-10.2); Carbon Dioxide 35 mmol/L (22-30); Chloride 106 mmol/L (98-107); Estimated CRCL calculation 81 ml/min; Estimated Glomerular Filt Rate > 60; Glucose 158 mg/dL (65-110); Magnesium 2.5 mg/dL (1.6-2.3); Phosphorus 3.9 mg/dL (2.5-4.5); Potassium 4.3 mmol/L (3.4-5.0); Sodium 141 mmol/L (137-145)
[2024-08-04] MEDS: CENTRAL LINE FLUSH 10 ML IV PUSH ×3 (05:21→21:57)
[2024-08-04 05:27] LABS: Band Neutrophils Percent 7 % (0-6); Lymphocytes Absolute Manual 1.06 K/mm3 (1.1-4.5); Lymphocytes Percent Manual 9 % (18-44); Monocytes Absolute Manual 0.59 K/mm3 (0.1-0.90); Monocytes Percent Manual 5 % (3-9); Total Cells Counted 100
[2024-08-04 05:28] LABS: Neutrophils Absolute Manual 10.14 K/mm3 (1.7-7.2); Neutrophils Percent Manual 79 % (46-73)
[2024-08-04 05:29] LABS: Ovalocytes 1+; Platelet Estimate Adequate (Adequate); Schistocytes None Seen
[2024-08-04 06:05] LABS: Alveolar/Arterial O2 Gradient 192.9 mmHg; Base Excess ABG 5.3 mEq/l (+/-2.0); Carboxyhemoglobin 0.4 % THb (0-2.0); Fractional Inspired Oxygen 45 %; HCO3 ABG 30.6 mEq/l (22.0-26.0); Methemoglobin ABG 0.1 %THb (0-1.5); Oxygen Content ABG 15.9 %vol (16.0-22.0); Oxygen Saturation ABG 94.8 % (95.0-100.0); Oxyhemoglobin 93.7 % THb (90.0-100.0); PCO2 ABG 48.3 mmHg (35.0-45.0); PO2 FiO2 Ratio Arterial Blood 1.62 %; Reduced Hemoglobin 5.8 %THb (0-5.0)
[2024-08-04 06:06] LABS: Device VENTILATOR; Modified Allen's Test Pass; Site Drawn LEFT RADIAL
[2024-08-04 06:07] LABS: Arterial Blood Gas PEEP 5 cmH2O; Arterial Blood Gas Tidal Volume 480 ml; Arterial Blood Gas Vent Mode CMV; Arterial Blood Gas Ventilator rate 16 /MIN
[2024-08-04] MEDS: ENOXAPARIN 40 MG/0.4 ML SYRINGE SUB-Q (08:00)
[2024-08-04] MEDS: PANTOPRAZOLE SODIUM IV 40 MG VIAL IV PUSH (08:01)
[2024-08-04] MEDS: FUROSEMIDE INJ 40 MG/4 ML VIAL 20 MG IV PUSH (08:01)
[2024-08-04] MEDS: MINERAL OIL/WHITE PETROLATUM OINTMENT 1 APPLIC EACH EYE ×2 (08:02→21:50)
[2024-08-04] MEDS: DORNASE ALFA INH SOLN 1 MG/ML 2.5 ML AMP 2.5 MG INHALATION ×2 (08:31→21:59)
--- NOTE | 2024-08-04 11:05 | PCNFU ---
Nutrition Follow-Up Complete: Suboptimal Energy Intake as related to mechanical ventilation as evidenced by NPO. Meet estimated nutritional needs. - Progressing. Adding protein modular to get closer to EER, estimated protein needs. Continue with goal Goal: Pt current nutrition is Vital AF 1.2 @ 45 ml/h. Flush 30 ml q 4 hours. Giancarlo BID for additional 90 kcal, 2.5 g protein Nutrition recommendation: Add protein modular: Prosource TF once per day to add 80 kcal and 20 g protein Last recorded weight is 113.1 kg. Bowel Motility: No BMs yet. Bowel regimen on board Labs Reviewed: Alb 3.0, BUN 45, Cre 0.6, Glu 158, Mag 2.5 Meds Noted: Fentanyl, propofol @ 13.61 ml/h to provide 359 kcal; protonix, lovenox, vancomycin Skin: Deep tissue pressure injury to coccyx Additional Notes: With protein modular, total kcal (not including propofol)= 1376 kcal, 94 g protein (~73% estimated needs). Rate was lower because of high dose of propofol, which is titrating down. Will titrate TF up if still intubated Wednesday. Breathing trial to start today. Will monitor weight, labs, skin, diet orders, meds every Wednesday and Wednesday.
[2024-08-04] MEDS: PROPOFOL IV EMULSION 100 ML 10.21 MG IV CONT (11:37)
[2024-08-04 11:58] LABS: Glucose Point of Care 178 mg/dl (65-105)
--- NOTE | 2024-08-04 12:11 | P.PNINT_ITS ---
Progress Note: A&P Assessment and Plan (1) Acute hypercapnic respiratory failure: Code(s): J96.02 - Acute respiratory failure with hypercapnia Status: Acute Assessment and Plan: 07/30: Patient presented with acute hypoxic and hypercarbic respiratory failure. 07/30: Failed trial of BiPAP in the ER and was intubated -currently on CMV mode of ventilation, peep of 5, 30% FiO2, wean O2 to maintain O2 sats > 90-92%, -no wheezing will decrease steroids to daily -continue ceftriaxone, azithromycin (07/30) -discontinue vancomycin (08/03) -influenza, RSV, COVID negative -patient has thick secretions, continue Mucomyst and Pulmozyme -continue DuoNebs -08/03: Status post bronchoscopy,, was also present in the room with Dr. Smith, right middle and lower lobe collapse he, increased secretions, was able to get a BAL and sent for Gram stain and culture -08/04: CT scan of chest as under, currently sedated with fentanyl and propofol infusion, have asked the bedside RN to start decreasing the propofol and fentanyl and place patient on Precedex infusion, will try SBT today 08/04: CT chest noncontrast IMPRESSION: 1. Mild groundglass opacities in the lower lobes, consistent with pneumonia. 2. 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 Persistent complete collapse of right middle lobe. 3. Tracheobronchomalacia. 4. Small pleural effusions. 5. Mild emphysema. (2) Acute exacerbation of chronic obstructive pulmonary disease: Code(s): J44.1 - Chronic obstructive pulmonary disease with (acute) exacerbation Status: Acute Assessment and Plan: Continue bronchodilators, currently on mechanical ventilation -wean steroids (3) Pneumonia: Code(s): J18.9 - Pneumonia, unspecified organism Status: Acute Assessment and Plan: Continue antibiotics, bronchodilators -07/30: Preliminary blood cultures are negative x2 -07/30: Urine cultures are negative -08/01: Sputum cultures no growth so far (4) Diabetes: Code(s): E11.9 - Type 2 diabetes mellitus without complications Status: Acute Assessment and Plan: Continue sliding scale insulin and Accu-Cheks -hemoglobin A1c 5.7 this admission (5) Elevated troponin: Code(s): R79.89 - Other specified abnormal findings of blood chemistry Status: Acute Assessment and Plan: Elevated troponin, trending down, likely related to type 2 infarct secondary se erma hypoxia as patient was saturating 44% on room air upon arrival of the EMS at her house -there was no complains of chest pain -severely reduced right systolic function: appreciate cardiology evaluation and recommendations, -continue Lasix -discussed with cardiology regarding EDDIE-inhibitor 08/01: Echocardiogram Summary 1. Very technically difficult study with limited views. 2. The left ventricle grossly appears normal size and systolic function in the available and technically difficult views that were obtained in this study. 3. The right ventricle appears dilated with severely reduced systolic function in the available and technically difficult views that were obtained in this study. 4. Dilated inferior vena cava with <50% collapse upon inspiration consistent with significantly elevated right atrial pressure, 15 mmHg. (6) Electrolyte abnormality: Code(s): E87.8 - Other disorders of electrolyte and fluid balance, not elsewhere classified Status: Acute Assessment and Plan: Potassium and magnesium normalized after replacement Plan DVT prophylaxis: Lovenox Stress ulcer prophylaxis: Protonix Nutrition: Tolerating tube feeds, continue Code Status: Full code Critical Care Time Spent: 34 minutes Discussed with spouse and daughter in rounds and updated them with patient's condition and plan of care. They are aware that she patient had a bronchoscopy yesterday, I discussed with them regarding decreasing sedation after she comes back from the CT scan of the chest, and place her on spontaneous breathing trial. I answered all the questions Due to a high probability of clinically significant, life threatening deterioration, the patient required my highest level of preparedness to intervene emergently and I personally spent this critical care time directly and personally managing the patient. This critical care time included obtaining a history; examining the patient; pulse oximetry; ordering and review of studies; arranging urgent treatment with development of a management plan; evaluation of patient's response to treatment; frequent reassessment; and discussions with other providers. It was exclusive of separately billable procedures and treating other patients and teaching time. Please see Assessment and Plan section and the rest of the note for further information on patient assessment and treatment This dictation may have been done utilizing a voice recognition system. Attempts have been made to correct errors. However, there may be uncorrected grammatical, spelling, and recognitions errors present. Subjective Date/time seen: 08/04/24 12:11 Interval history: Reason for consult: Hypercapnic respiratory failure requiring intubation in the ER after failing BiPAP, COPD exacerbation, pneumonia 07/30: Intubated 08/03: Bronchoscope 08/04/2024: Patient seen and examined the ICU, remains intubated on CMV mode of ventilation for, peep of 5, 45% FiO2. Sedated with fentanyl and propofol infusion. Patient does not open her eyes or follow simple commands. Bronchoscopy was done yesterday with increased secretions from the right side, narrowing of the airways in the right middle and lower lobe. Patient responded very well to diuresis with negative fluid balance, afebrile and hemodynamically stable. Tolerating tube feeds, no bowel movements Review of Systems Review of Systems: ROS unobtainable: Yes unobtainable due to endotracheal tube, unobtainable due to medical condition and unobtainable due to mental status Exam 2 Narrative: General: Intubated and sedated, in mild respiratory distress HEENT:? Pupils equal and reactive, sclerae is care, ETT in place Neck:? Supple Respiratory:? Coarse breath sounds bilaterally, coarse breath sounds bilaterally, right > left. No wheezing this morning Cardiac:? S1-S2 normal, regular rate and rhythm Abdomen:? Soft, nontender, nondistended, obese, normoactive bowel sound Extremities:? No edema, palpable pedal pulse Neuro:? Patient is intubated, sedated, does not open her eyes or follow simple commands this morning, withdraws to pain in all extremities Skin:? No skin lesions noted Psych:? Unable to assess at this time Objective Data Vital Signs Vital Signs: Vital Signs - 24 hr 08/03/24 13:50 08/03/24 13:50 08/03/24 13:59 Temperature Pulse Rate 85 85 90 Respiratory Rate 16 16 Blood Pressure Pulse Oximetry 92 Oxygen Delivery Mechanical Ventilation Fraction of Inspired Oxygen 30 08/03/24 14:00 08/03/24 14:00 08/03/24 14:00 Temperature Pulse Rate 89 89 72 Respiratory Rate 16 16 Blood Pressure 116/50 L Pulse Oximetry 94 Oxygen Delivery Fraction of Inspired Oxygen 08/03/24 14:00 08/03/24 15:43 08/03/24 15:44 Temperature Pulse Rate 72 Respiratory Rate 16 Blood Pressure Pulse Oximetry 86 L 94 Oxygen Delivery Mechanical Ventilation Mechanical Ventilation Fraction of Inspired Oxygen 40 100 08/03/24 16:00 08/03/24 16:00 08/03/24 16:00 Temperature 98.3 F Pulse Rate 86 72 72 Respiratory Rate 16 16 16 Blood Pressure 109/50 L Pulse Oximetry 96 Oxygen Delivery Fraction of Inspired Oxygen 08/03/24 16:00 08/03/24 16:00 08/03/24 16:00 Temperature Pulse Rate 86 Respiratory Rate Blood Pressure Pulse Oximetry 90 Oxygen Delivery Mechanical Ventilation Fraction of Inspired Oxygen 30 30 08/03/24 16:41 08/03/24 16:41 08/03/24 16:41 Temperature Pulse Rate 85 85 83 Respiratory Rate 16 16 Blood Pressure Pulse Oximetry 97 Oxygen Delivery Mechanical Ventilation Fraction of Inspired Oxygen 80 08/03/24 17:06 08/03/24 17:19 08/03/24 18:00 Temperature Pulse Rate 67 Respiratory Rate 16 Blood Pressure Pulse Oximetry 95 92 Oxygen Delivery Mechanical Ventilation Mechanical Ventilation Fraction of Inspired Oxygen 60 50 08/03/24 18:00 08/03/24 18:00 08/03/24 18:00 Temperature Pulse Rate 67 63 70 Respiratory Rate 16 16 Blood Pressure 110/49 L Pulse Oximetry 94 Oxygen Delivery Fraction of Inspired Oxygen 08/03/24 20:00 08/03/24 20:00 08/03/24 20:00 Temperature 100.3 F H Pulse Rate 70 70 70 Respiratory Rate 16 16 16 Blood Pressure 119/55 L Pulse Oximetry 95 Oxygen Delivery Fraction of Inspired Oxygen 08/03/24 20:00 08/03/24 20:00 08/03/24 20:39 Temperature Pulse Rate 69 78 Respiratory Rate Blood Pressure Pulse Oximetry 95 Oxygen Delivery Mechanical Ventilation Fraction of Inspired Oxygen 45 45 08/03/24 20:45 08/03/24 22:00 08/03/24 22:00 Temperature Pulse Rate 78 86 86 Respiratory Rate 16 20 20 Blood Pressure Pulse Oximetry Oxygen Delivery Fraction of Inspired Oxygen 08/03/24 22:00 08/03/24 22:01 08/03/24 23:12 Temperature Pulse Rate 85 90 92 Respiratory Rate 16 16 Blood Pressure 112/59 L Pulse Oximetry 90 Oxygen Delivery Fraction of Inspired Oxygen 08/03/24 23:12 08/03/24 23:46 08/04/24 00:00 Temperature Pulse Rate 92 73 70 Respiratory Rate 16 16 Blood Pressure Pulse Oximetry 91 Oxygen Delivery Mechanical Ventilation Fraction of Inspired Oxygen 45 08/04/24 00:00 08/04/24 00:00 08/04/24 00:00 Temperature Pulse Rate 70 70 Respiratory Rate 16 Blood Pressure Pulse Oximetry Oxygen Delivery Fraction of Inspired Oxygen 45 08/04/24 00:01 08/04/24 02:00 08/04/24 02:00 Temperature 99.8 F H Pulse Rate 70 73 73 Respiratory Rate 16 16 16 Blood Pressure 105/55 L Pulse Oximetry 92 Oxygen Delivery Fraction of Inspired Oxygen 08/04/24 02:00 08/04/24 02:00 08/04/24 03:09 Temperature Pulse Rate 74 74 56 L Respiratory Rate 16 Blood Pressure 111/62 Pulse Oximetry 96 95 Oxygen Delivery Mechanical Ventilation Fraction of Inspired Oxygen 45 08/04/24 03:15 08/04/24 03:25 08/04/24 04:00 Temperature Pulse Rate 55 L 56 L 70 Respiratory Rate 16 16 16 Blood Pressure Pulse Oximetry Oxygen Delivery Fraction of Inspired Oxygen 08/04/24 04:00 08/04/24 04:00 08/04/24 04:00 Temperature 99.5 F Pulse Rate 70 70 Respiratory Rate 16 16 Blood Pressure 131/69 Pulse Oximetry 95 Oxygen Delivery Fraction of Inspired Oxygen 45 08/04/24 04:00 08/04/24 04:16 08/04/24 04:16 Temperature Pulse Rate 69 75 75 Respiratory Rate 16 16 Blood Pressure Pulse Oximetry Oxygen Delivery Fraction of Inspired Oxygen 08/04/24 05:00 08/04/24 06:00 08/04/24 06:00 Temperature Pulse Rate 94 90 90 Respiratory Rate 16 16 Blood Pressure Pulse Oximetry 93 Oxygen Delivery Mechanical Ventilation Fraction of Inspired Oxygen 45 08/04/24 06:00 08/04/24 06:00 08/04/24 08:00 Temperature Pulse Rate 90 90 Respiratory Rate 16 Blood Pressure 135/66 Pulse Oximetry 93 Oxygen Delivery Mechanical Ventilation Fraction of Inspired Oxygen 45 08/04/24 08:00 08/04/24 08:00 08/04/24 08:00 Temperature 98.6 F Pulse Rate 85 85 Respiratory Rate 16 Blood Pressure 138/68 Pulse Oximetry 95 Oxygen Delivery Fraction of Inspired Oxygen 45 08/04/24 08:00 08/04/24 08:00 08/04/24 08:34 Temperature Pulse Rate 85 85 78 Respiratory Rate 16 16 16 Blood Pressure Pulse Oximetry Oxygen Delivery Fraction of Inspired Oxygen 08/04/24 08:36 08/04/24 10:00 08/04/24 10:00 Temperature Pulse Rate 78 91 89 Respiratory Rate 16 Blood Pressure 134/63 Pulse Oximetry 94 92 Oxygen Delivery Mechanical Ventilation Fraction of Inspired Oxygen 45 08/04/24 10:00 08/04/24 10:00 08/04/24 11:49 Temperature Pulse Rate 89 89 83 Respiratory Rate 16 16 16 Blood Pressure Pulse Oximetry Oxygen Delivery Fraction of Inspired Oxygen 08/04/24 11:52 Temperature Pulse Rate 80 Respiratory Rate Blood Pressure Pulse Oximetry 94 Oxygen Delivery Mechanical Ventilation Fraction of Inspired Oxygen 45 Intake/Output Intake/Output: Intake & Output 08/01/24 08/02/24 08/03/24 08/04/24 23:59 23:59 23:59 23:59 Intake Total 2510.3 3843.4 3304.4 1676.9 Output Total 950 1250 3800 2625 Balance 1560.3 2593.4 -495.6 -948.1 Meds/Results Medications: Active Medications Generic Name Dose Route Start Last Admin Trade Name Freq PRN Reason Stop Dose Admin Acetylcysteine 200 mg 08/01/24 08:00 08/04/24 08:31 Acetylcysteine 20% Inhal Soln 800 Mg/4 Ml Vial INHALATION 200 mg Q6HRT RAISSA Administration Albuterol/Ipratropium 3 ml 08/01/24 14:00 08/04/24 08:30 Ipratropium 0.5 Mg/Albuterol Sulfate 2.5 Mg Ampul.Neb 3 Ml INHALATION 3 ml Q6HRT RAISSA Administration Atorvastatin Calcium 10 mg 07/31/24 21:00 08/03/24 20:28 Atorvastatin 10 Mg Tablet PO 10 mg QHS RAISSA Administration Bisacodyl 10 mg 07/30/24 20:15 Bisacodyl 10 Mg Suppository RECTAL ONCE PRN Constipation Dextrose 12.5 gm 07/31/24 00:46 Dextrose 50% 25 Gm/50 Ml Syringe IV PUSH PRN PRN Hypoglycemia Protocol Dornase Gerald 2.5 mg 08/01/24 08:00 08/04/24 08:31 Dornase Gerald Inh Soln 1 Mg/Ml 2.5 Ml Amp INHALATION 08/06/24 23:59 2.5 mg Q12HRT RAISSA Administration Enoxaparin Sodium 40 mg 07/31/24 09:00 08/04/24 08:00 Enoxaparin 40 Mg/0.4 Ml Syringe SUB-Q 40 mg DAILY RAISSA Administration Fluticasone/Umeclidinium/Vilanterol 1 puff 07/31/24 09:45 08/04/24 08:30 Fluticasone/Umeclidin/Vilanter 100-62.5-25 Mcg Ellipta INHALATION Not Given DAILYRT RAISSA Glucagon 1 mg 07/31/24 00:46 Glucagon For Inj 1 Mg Vial IM PRN PRN Hypoglycemia Protocol Glucose 15 gm 07/31/24 00:46 Glucose Oral Gel 15 Gm Of Glucse In 37.5 Gm Tube PO PRN PRN Hypoglycemia Protocol Ceftriaxone Sodium 2 gm in 100 mls @ 200 mls/hr 07/31/24 00:00 08/04/24 01:07 Rocephin 2 Gm/Ns 100 Ml IVPB Infused Q24H RAISSA Infusion Azithromycin 500 mg in 250 mls @ 250 mls/hr 07/31/24 01:00 08/04/24 01:38 Zithromax IVPB 08/05/24 23:59 Infused Q24H RAISSA Infusion Dextrose 1,000 mls @ 100 mls/hr 07/31/24 00:46 Dextrose 5% 1,000 Ml IVPB PRN PRN Hypoglycemia Protocol Fentanyl Citrate 2,500 mcg in 250 mls @ 0 mls/hr 07/31/24 01:55 08/04/24 11:49 Fentanyl 2,500 Mcg/Ns 250 Ml IV CONT 0 mcg/hr .Q0M RAISSA 0 mls/hr Titration Protocol Propofol 100 mls @ 13.608 mls/hr 08/01/24 07:55 08/04/24 10:00 Diprivan IV CONT 20 mcg/kg/min .Q7H21M RAISSA 13.61 mls/hr Titration Protocol 20 MCG/KG/MIN Insulin Aspart 3 - 6 units 07/31/24 06:00 08/04/24 11:53 Insulin Aspart (*Bkc) 100 Units/Ml SUB-Q Not Given Q6HR RAISSA Protocol Magnesium Hydroxide 30 ml 07/30/24 20:15 Magnesium Hydroxide Susp 30 Ml Udc FEED TUBE DAILY PRN Constipation Methylprednisolone Sodium Succinate 40 mg 07/30/24 18:00 08/04/24 11:53 Methylprednisolone Sod Succ 40 Mg Vial IV PUSH 40 mg Q6H RAISSA Administration Midazolam HCl 2 mg 07/30/24 20:27 07/30/24 21:14 Midazolam Hcl (*Crx) 2 Mg/2 Ml Vial IV PUSH 2 mg ONCE PRN Administration Agitation Multi-Ingred Cream/Lotion/Oil/Oint 1 applic 07/31/24 09:00 08/04/24 08:02 Mineral Oil/White Petrolatum Ointment EACH EYE 1 applic Q12HR RAISSA Administration Pantoprazole Sodium 40 mg 07/31/24 09:00 08/04/24 08:01 Pantoprazole Sodium Iv 40 Mg Vial IV PUSH 40 mg DAILY RAISSA Administration Polyethylene Glycol 17 gm 08/02/24 11:00 08/03/24 17:47 Polyethylene Glycol 3350 17 Gm Powd.Pack PO 17 gm QAM PRN Administration Constipation Senna/Docusate Sodium 1 tab 08/02/24 21:00 08/03/24 20:28 Senna/Docusate Sodium Tablet PO 1 tab HS RAISSA Administration Sodium Chloride 10 ml 08/02/24 14:00 08/04/24 05:21 Central Line Flush IV PUSH 10 ml Q8HR RAISSA Administration Sodium Chloride 20 ml 08/02/24 09:06 Central Line Flush IV PUSH PRN PRN after blood draws Radiology Results: ITS Impressions Chest CTA 07/30/24 16:19 IMPRESSION: Right lung atelectasis including particularly upper and lower lobes; which may be due to malignant or radiation stricture of the right bronchial airways. Consider PET/CT correlation No pulmonary embolism Abdomen X-Ray 07/31/24 05:45 IMPRESSION: 1. Nonobstructive bowel gas pattern. Chest X-Ray 08/04/24 06:32 IMPRESSION: 1. Stable airspace opacities in right perihilar region and right upper lobe, likely radiation pneumonitis. 2. Stable airspace opacities in the lower lung zones, consistent with atelectasis versus pneumonia. 3. Cardiomegaly. Venous Doppler Study 08/04/24 10:39 IMPRESSION: 1. Patent bilateral upper extremity veins. No evidence of venous thrombosis. Chest CT 08/04/24 11:39 IMPRESSION: 1. Mild groundglass opacities in the lower lobes, consistent with pneumonia. 2. 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 Persistent complete collapse of right middle lobe. 3. Tracheobronchomalacia. 4. Small pleural effusions. 5. Mild emphysema. Labs Labs: Laboratory Results - last 24 hr 08/03/24 08/04/24 08/04/24 17:36 00:36 04:11 WBC 11.8 H RBC 3.98 L Hgb 12.4 Hct 39.4 MCV 99.0 MCH 31.2 MCHC 31.5 L RDW 14.0 Plt Count 189 MPV 10.7 H Immature Gran % (Auto) Not Reportable Neut % (Auto) Not Reportable Lymph % (Auto) Not Reportable [place] % (Auto) Not Reportable Eos % (Auto) Not Reportable Baso % (Auto) Not Reportable Lymph # (Auto) Not Reportable [place] # (Auto) Not Reportable Eos # (Auto) Not Reportable Baso # (Auto) Not Reportable Abs Immat Gran (auto) Not Reportable Absolute Neuts (auto) Not Reportable Absolute Nucleated RBC Not Reportable Total Counted 100 Neutrophils % (Manual) 79 H Band Neutrophils % 7 H Lymphocytes % (Manual) 9 L Monocytes % (Manual) 5 Nucleated RBC % Not Reportable Abs Neuts (Manual) 10.14 H Abs Lymphs (Manual) 1.06 L Abs Monocytes (Manual) 0.59 Platelet Estimate Adequate Ovalocytes 1+ Schistocytes None seen Puncture Site ABG pH ABG pCO2 ABG pO2 ABG PO2/FiO2 Ratio ABG HCO3 ABG O2 Saturation ABG O2 Content ABG Base Excess A-a Gradient Oxyhemoglobin Carboxyhemoglobin Methemoglobin Reduced Hemoglobin Total Hemoglobin O2 Delivery Device O2 Liters/Min Minute Volume Vent Rate Vent Mode FiO2 Tidal Volume PEEP Peak Inspir Pressure Pressure Support Sodium 141 Potassium 4.3 Chloride 106 Carbon Dioxide 35 H Anion Gap 0 L BUN 45 H Creatinine 0.60 L Estim Creat Clear Calc 81 Estimated GFR > 60 Glucose 158 H POC Capillary Glucose 164 H 161 H Calcium 8.7 Phosphorus 3.9 Magnesium 2.5 H Total Bilirubin 0.6 AST 72 H ALT 107 H Alkaline Phosphatase 88 Total Protein 6.0 L Albumin 3.0 L 08/04/24 08/04/24 04:57 11:52 WBC RBC Hgb Hct MCV MCH MCHC RDW Plt Count MPV Immature Gran % (Auto) Neut % (Auto) Lymph % (Auto) [place] % (Auto) Eos % (Auto) Baso % (Auto) Lymph # (Auto) [place] # (Auto) Eos # (Auto) Baso # (Auto) Abs Immat Gran (auto) Absolute Neuts (auto) Absolute Nucleated RBC Total Counted Neutrophils % (Manual) Band Neutrophils % Lymphocytes % (Manual) Monocytes % (Manual) Nucleated RBC % Abs Neuts (Manual) Abs Lymphs (Manual) Abs Monocytes (Manual) Platelet Estimate Ovalocytes Schistocytes Puncture Site Left radial ABG pH 7.420 ABG pCO2 48.3 H ABG pO2 73.0 L ABG PO2/FiO2 Ratio 1.62 ABG HCO3 30.6 H ABG O2 Saturation 94.8 L ABG O2 Content 15.9 L ABG Base Excess 5.3 A-a Gradient 192.9 Oxyhemoglobin 93.7 Carboxyhemoglobin 0.4 Methemoglobin 0.1 Reduced Hemoglobin 5.8 H Total Hemoglobin 12.0 O2 Delivery Device Ventilator O2 Liters/Min Not Reportable Minute Volume Not Reportable Vent Rate 16 Vent Mode Cmv FiO2 45 Tidal Volume 480 PEEP 5 Peak Inspir Pressure Not Reportable Pressure Support Not Reportable Sodium Potassium Chloride Carbon Dioxide Anion Gap BUN Creatinine Estim Creat Clear Calc Estimated GFR Glucose POC Capillary Glucose 178 H Calcium Phosphorus Magnesium Total Bilirubin AST ALT Alkaline Phosphatase Total Protein Albumin Quality VTE Prophylaxis VTE prophylaxis: pharmacologic ordered
[2024-08-04 18:00] LABS: Glucose Point of Care 165 mg/dl (65-105)
[2024-08-04] MEDS: SENNA/DOCUSATE SODIUM TABLET 1 TAB PO (21:50)
[2024-08-04] MEDS: ATORVASTATIN 10 MG TABLET PO (21:50)
[2024-08-05] VITALS (36 sets, daily range): BP systolic 120–188; BP diastolic 58–81; PULSE 84–929; RESP 16–30; TEMP 37.3–38.3; O2SAT 89–97
[2024-08-05 00:15] LABS: Glucose Point of Care 134 mg/dl (65-105)
[2024-08-05] MEDS: cefTRIAXone 2 GM/NS 100 ML 2 GM/100 ML BAG IVPB (00:34)
[2024-08-05] MEDS: AZITHROMYCIN 500 MG/NS 250 ML 500 MG/250 ML BAG 250 MG IVPB (00:34)
[2024-08-05] MEDS: IPRATROPIUM 0.5 MG/ALBUTEROL SULFATE 2.5 MG AMPUL.NEB 3 ML INHALATION ×4 (02:54→20:28)
[2024-08-05] MEDS: ACETYLCYSTEINE 20% INHAL SOLN 800 MG/4 ML VIAL 200 MG INHALATION ×4 (02:55→20:28)
[2024-08-05 04:57] LABS: Alveolar/Arterial O2 Gradient 90.6 mmHg; Base Excess ABG 8.1 mEq/l (+/-2.0); Carboxyhemoglobin 0.6 % THb (0-2.0); Fractional Inspired Oxygen 30 %; HCO3 ABG 33.4 mEq/l (22.0-26.0); Methemoglobin ABG 0.2 %THb (0-1.5); Oxygen Content ABG 17.3 %vol (16.0-22.0); Oxygen Saturation ABG 93.6 % (95.0-100.0); PCO2 ABG 48.9 mmHg (35.0-45.0); PO2 ABG 65.8 mmHg (80.0-100.0); PO2 FiO2 Ratio Arterial Blood 2.19 %; Reduced Hemoglobin 7.2 %THb (0-5.0); Total Hemoglobin 13.4 g/dL (12.0-18.0); pH ABG 7.452 (7.350-7.450)
[2024-08-05 04:58] LABS: Device VENTILATOR; Modified Allen's Test Pass; Site Drawn RIGHT RADIAL
[2024-08-05 04:59] LABS: Arterial Blood Gas PEEP 5 cmH2O; Arterial Blood Gas Tidal Volume 480 ml; Arterial Blood Gas Vent Mode CMV; Arterial Blood Gas Ventilator rate 16 /MIN
[2024-08-05 05:28] LABS: Basophils Percent Auto 0.1 % (0.2-1.2); Eosinophils Percent Auto 0.1 % (0-4.4); Hematocrit 41.4 % (37.0-47.0); Hemoglobin 12.6 g/dL (12.0-15.0); Immature Granulocyte Absolute 1.94 K/mm3 (0.00-0.031); Immature Granulocyte Percent A 11.2 % (0-0.5); Lymphocytes Absolute Auto 1.55 K/mm3 (0.9-3.2); Mean Corpuscular HGB Conc 30.4 g/dl (32-36); Mean Corpuscular Hemoglobin 30.5 pg (26-34); Mean Corpuscular Volume 100.2 fl (80-100); Mean Platelet Volume 10.8 fl (7.4-10.4); Monocytes Absolute Auto 0.8 K/mm3 (0.1-0.6); Monocytes Percent Auto 4.3 % (2.6-8.5); Neutrophils Absolute Auto 13.1 K/mm3 (1.3-6.7); Neutrophils Percent Auto 75.3 % (45.5-73.1); Nucleated Red Blood Cells Perc 0.5 % (0.0-0.2); Platelet Count Result 186 k/mm3 (150-375); Red Blood Count 4.13 M/mm3 (4.2-5.4); Red Cell Distribution Width 14.1 % (11.5-14.5); White Blood Count 17.3 K/mm3 (4.5-10.0)
[2024-08-05 05:42] LABS: Alanine Aminotransferase 170 U/L (6-35); Albumin Level 3.1 g/dL (3.5-5.1); Alkaline Phosphatase 73 U/L (38-126); Anion Gap -2 mmol/L (4-12); Aspartate Amino Transferase 101 U/L (14-36); Bilirubin,Total 0.9 mg/dL (0.2-1.3); Blood Urea Nitrogen 45 mg/dL (7-17); CRP 1.3 mg/dL (<1.0); Calcium 8.7 mg/dL (8.4-10.2); Carbon Dioxide 36 mmol/L (22-30); Chloride 106 mmol/L (98-107); Estimated CRCL calculation 95 ml/min; Estimated Glomerular Filt Rate > 60; Glucose 106 mg/dL (65-110); Magnesium 2.3 mg/dL (1.6-2.3); Phosphorus 3.4 mg/dL (2.5-4.5); Potassium 3.9 mmol/L (3.4-5.0); Sodium 140 mmol/L (137-145); Triglycerides 174 mg/dL (<150)
[2024-08-05] MEDS: CENTRAL LINE FLUSH 10 ML IV PUSH ×3 (06:49→21:33)
[2024-08-05] MEDS: EUCERIN CREAM 120 GM JAR 1 APPLIC TOPICAL (06:51)
[2024-08-05] MEDS: DORNASE ALFA INH SOLN 1 MG/ML 2.5 ML AMP 2.5 MG INHALATION ×2 (07:57→20:28)
[2024-08-05] MEDS: POTASSIUM CHLORIDE 20 MEQ PACKET (FOR LIQUID) 40 MEQ FEED TUBE (09:00)
[2024-08-05] MEDS: methylPREDNISolone SOD SUCC 40 MG VIAL IV PUSH (09:04)
[2024-08-05] MEDS: ENOXAPARIN 40 MG/0.4 ML SYRINGE SUB-Q (09:04)
[2024-08-05] MEDS: PANTOPRAZOLE SODIUM IV 40 MG VIAL IV PUSH (09:04)
[2024-08-05] MEDS: FUROSEMIDE INJ 40 MG/4 ML VIAL 20 MG IV PUSH (09:04)
[2024-08-05] MEDS: MINERAL OIL/WHITE PETROLATUM OINTMENT 1 APPLIC EACH EYE ×2 (09:05→21:33)
[2024-08-05] MEDS: hydrALAZINE HCL 20 MG/ML VIAL 10 MG IV PUSH (09:06)
--- NOTE | 2024-08-05 09:40 | WPDINTPN ---
Progress Note: A&P Assessment and Plan (1) Acute hypercapnic respiratory failure: Code(s): J96.02 - Acute respiratory failure with hypercapnia Status: Acute Assessment and Plan: 07/30: Patient presented with acute hypoxic and hypercarbic respiratory failure. 07/30: Failed trial of BiPAP in the ER and was intubated -currently on CMV mode of ventilation, peep of 5, 30% FiO2, wean O2 to maintain O2 sats > 90-92%, -no wheezing, continue to wean steroids to off -continue ceftriaxone, azithromycin (07/30) -discontinue vancomycin (08/03) -influenza, RSV, COVID negative -secretions have improved with Mucomyst and Pulmozyme -continue DuoNebs -08/03: Status post bronchoscopy,, was also present in the room with Dr. Smith, right middle and lower lobe collapse he, increased secretions, was able to get a BAL and sent for Gram stain and culture -08/04: CT scan of chest as under, currently sedated with fentanyl and propofol infusion, have asked the bedside RN to start decreasing the propofol and fentanyl and place patient on Precedex infusion, will try SBT today 08/05: Have placed patient on SBT, will evaluate for extubation 08/04: CT chest noncontrast IMPRESSION: 1. Mild groundglass opacities in the lower lobes, consistent with pneumonia. 2. 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 Persistent complete collapse of right middle lobe. 3. Tracheobronchomalacia. 4. Small pleural effusions. 5. Mild emphysema. (2) Acute exacerbation of chronic obstructive pulmonary disease: Code(s): J44.1 - Chronic obstructive pulmonary disease with (acute) exacerbation Status: Acute Assessment and Plan: Continue bronchodilators, currently on mechanical ventilation -wean steroids (3) Pneumonia: Code(s): J18.9 - Pneumonia, unspecified organism Status: Acute Assessment and Plan: Continue antibiotics, bronchodilators -07/30: Preliminary blood cultures are negative x2 -07/30: Urine cultures are negative -08/01: Sputum cultures no growth so far (4) Diabetes: Code(s): E11.9 - Type 2 diabetes mellitus without complications Status: Acute Assessment and Plan: Continue sliding scale insulin and Accu-Cheks -hemoglobin A1c 5.7 this admission (5) Elevated troponin: Code(s): R79.89 - Other specified abnormal findings of blood chemistry Status: Acute Assessment and Plan: Elevated troponin, trending down, likely related to type 2 infarct secondary severe hypoxia as patient was saturating 44% on room air upon arrival of the EMS at her house -there was no complains of chest pain -severely reduced right systolic function: appreciate cardiology evaluation and recommendations, -continue Lasix -discussed with cardiology regarding EDDIE-inhibitor 08/01: Echocardiogram Summary 1. Very technically difficult study with limited views. 2. The left ventricle grossly appears normal size and systolic function in the available and technically difficult views that were obtained in this study. 3. The right ventricle appears dilated with severely reduced systolic function in the available and technically difficult views that were obtained in this study. 4. Dilated inferior vena cava with <50% collapse upon inspiration consistent with significantly elevated right atrial pressure, 15 mmHg. (6) Electrolyte abnormality: Code(s): E87.8 - Other disorders of electrolyte and fluid balance, not elsewhere classified Status: Acute Assessment and Plan: Potassium and magnesium normalized after replacement Plan DVT prophylaxis: Lovenox Stress ulcer prophylaxis: Protonix Nutrition: Tolerating tube feeds, continue Code Status: Full code Critical Care Time Spent: 32 minutes Discussed with spouse and daughter in rounds and updated them with patient's condition and plan of care. They are aware that she patient had a bronchoscopy yesterday, I discussed with them regarding decreasing sedation after she comes back from the CT scan of the chest, and place her on spontaneous breathing trial. I answered all the questions Due to a high probability of clinically significant, life threatening deterioration, the patient required my highest level of preparedness to intervene emergently and I personally spent this critical care time directly and personally managing the patient. This critical care time included obtaining a history; examining the patient; pulse oximetry; ordering and review of studies; arranging urgent treatment with development of a management plan; evaluation of patient's response to treatment; frequent reassessment; and discussions with other providers. It was exclusive of separately billable procedures and treating other patients and teaching time. Please see Assessment and Plan section and the rest of the note for further information on patient assessment and treatment This dictation may have been done utilizing a voice recognition system. Attempts have been made to correct errors. However, there may be uncorrected grammatical, spelling, and recognitions errors present. Subjective Date/time seen: 08/05/24 09:40 Interval history: Reason for consult: Hypercapnic respiratory failure requiring intubation in the ER after failing BiPAP, COPD exacerbation, pneumonia 07/30: Intubated 08/03: Bronchoscopy 08/05/2024: Patient seen examined the ICU, remains intubated on CMV mode of ventilation, peep 5, 30% FiO2. Off all sedation. Patient opens eyes, follows simple commands in all extremities. Responded well to diuresis, negative fluid balance in the last 24 hours. ETT secretions are better. Tolerating tube feeds, no bowel movements. Hemodynamically stable and afebrile Review of Systems Review of Systems: ROS unobtainable: Yes unobtainable due to endotracheal tube, unobtainable due to medical condition and unobtainable due to mental status Exam Narrative: General: Intubated, is awake, in no acute distress HEENT:? Pupils equal and reactive, sclerae is care, ETT in place Neck:? Supple Respiratory:? Coarse breath sounds at bases bilaterally, right > left. No wheezing this morning, otherwise adequate air entry Cardiac:? S1-S2 normal, regular rate and rhythm Abdomen:? Soft, nontender, nondistended, obese, normoactive bowel sounds Extremities:? No edema, palpable pedal pulse Neuro:? Patient is intubated, off sedation, follows simple commands in all extremities and nods to questions Skin:? No skin lesions noted Psych:? Unable to assess at this time Objective Data Vital Signs Vital Signs: Vital Signs - 24 hr 08/04/24 10:00 08/04/24 10:00 08/04/24 10:00 Temperature Pulse Rate 91 89 89 Respiratory Rate 16 16 Blood Pressure 134/63 Pulse Oximetry 92 Oxygen Delivery Fraction of Inspired Oxygen 08/04/24 10:00 08/04/24 11:37 08/04/24 11:37 Temperature Pulse Rate 89 79 79 Respiratory Rate 16 16 16 Blood Pressure Pulse Oximetry Oxygen Delivery Fraction of Inspired Oxygen 08/04/24 11:49 08/04/24 11:52 08/04/24 12:00 Temperature Pulse Rate 83 80 Respiratory Rate 16 Blood Pressure Pulse Oximetry 94 Oxygen Delivery Mechanical Ventilation Mechanical Ventilation Fraction of Inspired Oxygen 45 45 08/04/24 12:00 08/04/24 12:00 08/04/24 12:00 Temperature 99.1 F Pulse Rate 79 79 Respiratory Rate 16 Blood Pressure 143/70 H Pulse Oximetry 94 Oxygen Delivery Fraction of Inspired Oxygen 45 08/04/24 12:00 08/04/24 12:00 08/04/24 13:15 Temperature Pulse Rate 89 86 85 Respiratory Rate 16 16 16 Blood Pressure Pulse Oximetry Oxygen Delivery Fraction of Inspired Oxygen 08/04/24 13:51 08/04/24 13:54 08/04/24 14:00 Temperature Pulse Rate 86 86 89 Respiratory Rate 16 16 Blood Pressure Pulse Oximetry 92 Oxygen Delivery Mechanical Ventilation Fraction of Inspired Oxygen 45 08/04/24 14:00 08/04/24 14:00 08/04/24 14:00 Temperature Pulse Rate 98 101 H 99 Respiratory Rate 16 16 Blood Pressure 141/71 H Pulse Oximetry 90 Oxygen Delivery Fraction of Inspired Oxygen 08/04/24 14:05 08/04/24 14:09 08/04/24 14:40 Temperature Pulse Rate 93 92 98 Respiratory Rate 16 16 Blood Pressure Pulse Oximetry 91 Oxygen Delivery Mechanical Ventilation Fraction of Inspired Oxygen 45 08/04/24 16:00 08/04/24 16:00 08/04/24 16:00 Temperature Pulse Rate 101 H 91 108 H Respiratory Rate 18 20 Blood Pressure Pulse Oximetry Oxygen Delivery Fraction of Inspired Oxygen 08/04/24 16:00 08/04/24 16:00 08/04/24 16:00 Temperature 99.6 F Pulse Rate 106 H Respiratory Rate 24 H Blood Pressure 164/78 H Pulse Oximetry 91 Oxygen Delivery Mechanical Ventilation Fraction of Inspired Oxygen 45 45 08/04/24 16:56 08/04/24 17:55 08/04/24 17:57 Temperature Pulse Rate 103 H 102 H 94 Respiratory Rate 24 H Blood Pressure Pulse Oximetry 91 91 Oxygen Delivery Mechanical Ventilation Mechanical Ventilation Fraction of Inspired Oxygen 45 45 08/04/24 18:00 08/04/24 18:00 08/04/24 18:00 Temperature Pulse Rate 98 98 98 Respiratory Rate 22 H 22 H Blood Pressure 148/70 H Pulse Oximetry 92 Oxygen Delivery Fraction of Inspired Oxygen 08/04/24 18:00 08/04/24 20:00 08/04/24 20:00 Temperature Pulse Rate 98 98 98 Respiratory Rate 22 H 19 19 Blood Pressure Pulse Oximetry Oxygen Delivery Fraction of Inspired Oxygen 08/04/24 20:00 08/04/24 20:00 08/04/24 20:00 Temperature 99.7 F H Pulse Rate 98 Respiratory Rate 19 Blood Pressure 150/67 H Pulse Oximetry 92 Oxygen Delivery Mechanical Ventilation Fraction of Inspired Oxygen 45 45 08/04/24 20:00 08/04/24 22:00 08/04/24 22:00 Temperature Pulse Rate 100 94 94 Respiratory Rate 20 Blood Pressure Pulse Oximetry Oxygen Delivery Fraction of Inspired Oxygen 08/04/24 22:01 08/04/24 22:04 08/04/24 22:07 Temperature Pulse Rate 94 93 93 Respiratory Rate 20 20 Blood Pressure 147/76 H Pulse Oximetry 94 94 Oxygen Delivery Mechanical Ventilation Fraction of Inspired Oxygen 45 08/04/24 22:30 08/04/24 23:57 08/05/24 00:00 Temperature Pulse Rate 97 94 92 Respiratory Rate 20 16 Blood Pressure Pulse Oximetry 90 Oxygen Delivery Mechanical Ventilation Fraction of Inspired Oxygen 45 08/05/24 00:00 08/05/24 00:00 08/05/24 00:01 Temperature 99.7 F H Pulse Rate 92 Respiratory Rate 16 Blood Pressure 120/62 Pulse Oximetry 90 Oxygen Delivery Mechanical Ventilation Fraction of Inspired Oxygen 45 45 08/05/24 02:00 08/05/24 02:00 08/05/24 02:00 Temperature Pulse Rate 95 95 95 Respiratory Rate 16 16 Blood Pressure 134/78 Pulse Oximetry 97 Oxygen Delivery Fraction of Inspired Oxygen 08/05/24 03:02 08/05/24 03:04 08/05/24 03:22 Temperature Pulse Rate 92 92 929 H Respiratory Rate 16 16 Blood Pressure Pulse Oximetry 96 Oxygen Delivery Mechanical Ventilation Fraction of Inspired Oxygen 45 08/05/24 04:00 08/05/24 04:00 08/05/24 04:00 Temperature 99.2 F Pulse Rate 84 Respiratory Rate 16 Blood Pressure 123/58 L Pulse Oximetry 96 Oxygen Delivery Mechanical Ventilation Fraction of Inspired Oxygen 45 45 08/05/24 04:00 08/05/24 04:00 08/05/24 04:33 Temperature Pulse Rate 84 85 Respiratory Rate 16 Blood Pressure Pulse Oximetry Oxygen Delivery Mechanical Ventilation Fraction of Inspired Oxygen 30 08/05/24 05:04 08/05/24 06:00 08/05/24 06:00 Temperature Pulse Rate 89 97 97 Respiratory Rate 16 Blood Pressure Pulse Oximetry 94 Oxygen Delivery Mechanical Ventilation Fraction of Inspired Oxygen 30 08/05/24 06:01 08/05/24 07:44 08/05/24 07:44 Temperature Pulse Rate 97 86 86 Respiratory Rate 16 16 Blood Pressure 164/65 H Pulse Oximetry 93 92 Oxygen Delivery Mechanical Ventilation Fraction of Inspired Oxygen 30 08/05/24 07:57 08/05/24 08:00 08/05/24 08:00 Temperature 99.4 F Pulse Rate 95 99 Respiratory Rate 16 18 Blood Pressure 161/73 H Pulse Oximetry 91 Oxygen Delivery Fraction of Inspired Oxygen 30 08/05/24 08:10 08/05/24 08:59 08/05/24 09:04 Temperature Pulse Rate 96 97 96 Respiratory Rate 16 Blood Pressure Pulse Oximetry 89 L 89 L Oxygen Delivery Mechanical Ventilation Mechanical Ventilation Fraction of Inspired Oxygen 30 30 Intake/Output Intake/Output: Intake & Output 08/02/24 08/03/24 08/04/24 08/05/24 23:59 23:59 23:59 23:59 Intake Total 3843.4 3304.4 2293.9 946.4 Output Total 1250 3800 3175 750 Balance 2593.4 -495.6 -881.1 196.4 Meds/Results Medications: Active Medications Generic Name Dose Route Start Last Admin Trade Name Freq PRN Reason Stop Dose Admin Acetylcysteine 200 mg 08/01/24 08:00 08/05/24 07:44 Acetylcysteine 20% Inhal Soln 800 Mg/4 Ml Vial INHALATION 200 mg Q6HRT RAISSA Administration Albuterol/Ipratropium 3 ml 08/01/24 14:00 08/05/24 07:44 Ipratropium 0.5 Mg/Albuterol Sulfate 2.5 Mg Ampul.Neb 3 Ml INHALATION 3 ml Q6HRT RAISSA Administration Atorvastatin Calcium 10 mg 07/31/24 21:00 08/04/24 21:50 Atorvastatin 10 Mg Tablet PO 10 mg QHS RAISSA Administration Bisacodyl 10 mg 07/30/24 20:15 Bisacodyl 10 Mg Suppository RECTAL ONCE PRN Constipation Dextrose 12.5 gm 07/31/24 00:46 Dextrose 50% 25 Gm/50 Ml Syringe IV PUSH PRN PRN Hypoglycemia Protocol Dornase Gerald 2.5 mg 08/01/24 08:00 08/05/24 07:57 Dornase Gerald Inh Soln 1 Mg/Ml 2.5 Ml Amp INHALATION 08/06/24 23:59 2.5 mg Q12HRT RAISSA Administration Enoxaparin Sodium 40 mg 07/31/24 09:00 08/05/24 09:04 Enoxaparin 40 Mg/0.4 Ml Syringe SUB-Q 40 mg DAILY RAISSA Administration Fluticasone/Umeclidinium/Vilanterol 1 puff 07/31/24 09:45 08/05/24 07:45 Fluticasone/Umeclidin/Vilanter 100-62.5-25 Mcg Ellipta INHALATION Not Given DAILYRT RAISSA Glucagon 1 mg 07/31/24 00:46 Glucagon For Inj 1 Mg Vial IM PRN PRN Hypoglycemia Protocol Glucose 15 gm 07/31/24 00:46 Glucose Oral Gel 15 Gm Of Glucse In 37.5 Gm Tube PO PRN PRN Hypoglycemia Protocol Hydralazine HCl 10 mg 08/05/24 07:42 08/05/24 09:06 Hydralazine Hcl 20 Mg/Ml Vial IV PUSH 10 mg Q4H PRN Administration Blood Pressure - High Ceftriaxone Sodium 2 gm in 100 mls @ 200 mls/hr 07/31/24 00:00 08/05/24 01:15 Rocephin 2 Gm/Ns 100 Ml IVPB Infused Q24H RAISSA Infusion Azithromycin 500 mg in 250 mls @ 250 mls/hr 07/31/24 01:00 08/05/24 01:34 Zithromax IVPB 08/05/24 23:59 Infused Q24H RAISSA Infusion Dextrose 1,000 mls @ 100 mls/hr 07/31/24 00:46 Dextrose 5% 1,000 Ml IVPB PRN PRN Hypoglycemia Protocol Fentanyl Citrate 2,500 mcg in 250 mls @ 0 mls/hr 07/31/24 01:55 08/04/24 21:57 Fentanyl 2,500 Mcg/Ns 250 Ml IV CONT Not Given .Q0M RAISSA Protocol Propofol 100 mls @ 0 mls/hr 08/01/24 07:55 08/05/24 06:00 Diprivan IV CONT 0 mcg/kg/min .Q0M RAISSA 0 mls/hr Titration Protocol Insulin Aspart 3 - 6 units 07/31/24 06:00 08/05/24 06:49 Insulin Aspart (*Bkc) 100 Units/Ml SUB-Q Not Given Q6HR RAISSA Protocol Magnesium Hydroxide 30 ml 07/30/24 20:15 Magnesium Hydroxide Susp 30 Ml Udc FEED TUBE DAILY PRN Constipation Methylprednisolone Sodium Succinate 40 mg 08/05/24 09:00 08/05/24 09:04 Methylprednisolone Sod Succ 40 Mg Vial IV PUSH 40 mg DAILY RAISSA Administration Midazolam HCl 2 mg 07/30/24 20:27 07/30/24 21:14 Midazolam Hcl (*Crx) 2 Mg/2 Ml Vial IV PUSH 2 mg ONCE PRN Administration Agitation Multi-Ingred Cream/Lotion/Oil/Oint 1 applic 07/31/24 09:00 08/05/24 09:05 Mineral Oil/White Petrolatum Ointment EACH EYE 1 applic Q12HR RAISSA Administration Multi-Ingred Cream/Lotion/Oil/Oint 1 applic 08/05/24 01:47 08/05/24 06:51 Eucerin Cream 120 Gm Jar TOPICAL 1 applic PRN PRN Administration dry skin Pantoprazole Sodium 40 mg 07/31/24 09:00 08/05/24 09:04 Pantoprazole Sodium Iv 40 Mg Vial IV PUSH 40 mg DAILY RAISSA Administration Polyethylene Glycol 17 gm 08/02/24 11:00 08/03/24 17:47 Polyethylene Glycol 3350 17 Gm Powd.Pack PO 17 gm QAM PRN Administration Constipation Senna/Docusate Sodium 1 tab 08/02/24 21:00 08/04/24 21:50 Senna/Docusate Sodium Tablet PO 1 tab HS RAISSA Administration Sodium Chloride 10 ml 08/02/24 14:00 08/05/24 06:49 Central Line Flush IV PUSH 10 ml Q8HR RAISSA Administration Sodium Chloride 20 ml 08/02/24 09:06 Central Line Flush IV PUSH PRN PRN after blood draws Radiology Results: ITS Impressions Chest CTA 07/30/24 16:19 IMPRESSION: Right lung atelectasis including particularly upper and lower lobes; which may be due to malignant or radiation stricture of the right bronchial airways. Consider PET/CT correlation No pulmonary embolism Abdomen X-Ray 07/31/24 05:45 IMPRESSION: 1. Nonobstructive bowel gas pattern. Venous Doppler Study 08/04/24 10:39 IMPRESSION: 1. Patent bilateral upper extremity veins. No evidence of venous thrombosis. Chest CT 08/04/24 11:39 IMPRESSION: 1. Mild groundglass opacities in the lower lobes, consistent with pneumonia. 2. 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 Persistent complete collapse of right middle lobe. 3. Tracheobronchomalacia. 4. Small pleural effusions. 5. Mild emphysema. Labs Labs: Laboratory Results - last 24 hr 08/04/24 08/04/24 08/05/24 11:52 17:57 00:13 WBC RBC Hgb Hct MCV MCH MCHC RDW Plt Count MPV Immature Gran % (Auto) Neut % (Auto) Lymph % (Auto) [place] % (Auto) Eos % (Auto) Baso % (Auto) Lymph # (Auto) [place] # (Auto) Eos # (Auto) Baso # (Auto) Abs Immat Gran (auto) Absolute Neuts (auto) Absolute Nucleated RBC Nucleated RBC % Puncture Site ABG pH ABG pCO2 ABG pO2 ABG PO2/FiO2 Ratio ABG HCO3 ABG O2 Saturation ABG O2 Content ABG Base Excess A-a Gradient Oxyhemoglobin Carboxyhemoglobin Methemoglobin Reduced Hemoglobin Total Hemoglobin O2 Delivery Device O2 Liters/Min Minute Volume Vent Rate Vent Mode FiO2 Tidal Volume PEEP Peak Inspir Pressure Pressure Support Sodium Potassium Chloride Carbon Dioxide Anion Gap BUN Creatinine Estim Creat Clear Calc Estimated GFR Glucose POC Capillary Glucose 178 H 165 H 134 H Calcium Phosphorus Magnesium Total Bilirubin AST ALT Alkaline Phosphatase C-Reactive Protein Total Protein Albumin Triglycerides 08/05/24 08/05/24 04:44 04:56 WBC 17.3 H RBC 4.13 L Hgb 12.6 Hct 41.4 MCV 100.2 H MCH 30.5 MCHC 30.4 L RDW 14.1 Plt Count 186 MPV 10.8 H Immature Gran % (Auto) 11.2 H Neut % (Auto) 75.3 H Lymph % (Auto) 9.0 L [place] % (Auto) 4.3 Eos % (Auto) 0.1 Baso % (Auto) 0.1 L Lymph # (Auto) 1.55 [place] # (Auto) 0.8 H Eos # (Auto) 0.0 Baso # (Auto) 0.0 Abs Immat Gran (auto) 1.94 H Absolute Neuts (auto) 13.1 H Absolute Nucleated RBC 0.080 H Nucleated RBC % 0.5 H Puncture Site Right radial ABG pH 7.452 H ABG pCO2 48.9 H ABG pO2 65.8 L ABG PO2/FiO2 Ratio 2.19 ABG HCO3 33.4 H ABG O2 Saturation 93.6 L ABG O2 Content 17.3 ABG Base Excess 8.1 A-a Gradient 90.6 Oxyhemoglobin 92.0 Carboxyhemoglobin 0.6 Methemoglobin 0.2 Reduced Hemoglobin 7.2 H Total Hemoglobin 13.4 O2 Delivery Device Ventilator O2 Liters/Min Not Reportable Minute Volume Not Reportable Vent Rate 16 Vent Mode Cmv FiO2 30 Tidal Volume 480 PEEP 5 Peak Inspir Pressure Not Reportable Pressure Support Not Reportable Sodium 140 Potassium 3.9 Chloride 106 Carbon Dioxide 36 H Anion Gap -2 L BUN 45 H Creatinine 0.50 L Estim Creat Clear Calc 95 Estimated GFR > 60 Glucose 106 POC Capillary Glucose Calcium 8.7 Phosphorus 3.4 Magnesium 2.3 Total Bilirubin 0.9 AST 101 H ALT 170 H Alkaline Phosphatase 73 C-Reactive Protein 1.3 H Total Protein 6.0 L Albumin 3.1 L Triglycerides 174 H Quality VTE Prophylaxis VTE prophylaxis: pharmacologic ordered
--- NOTE | 2024-08-05 09:48 | PM.PNCARD ---
Progress Note: A&P Assessment and Plan (1) Right heart failure with reduced right ventricular function: Code(s): I50.810 - Right heart failure, unspecified Status: Acute Plan 74-year-old woman with lung cancer (05/2017) status post chemoradiation therapy, emphysema, former tobacco user, and hyperlipidemia initially presented to the emergency room with shortness of breath and admitted for acute hypoxic hypercarbic respiratory failure requiring mechanical ventilation Right ventricular failure -the transthoracic echocardiogram was very technically difficult with very limited views however does suggest severely reduced systolic function of the right ventricle RV failure likely secondary to underlying significant lung disease. -she will also need a repeat outpatient transthoracic echocardiogram Weaning to extubate today Subjective Date/time seen: 08/05/24 09:48 Interval history: Reason for consult: Hypercapnic respiratory failure requiring intubation in the ER after failing BiPAP, COPD exacerbation, pneumonia Date of service 08/05/2024: Weaning to extubate. His answering yes and no questions by shaking her head. Denies chest pain or shortness of breath Review of Systems Cardiovascular: Comments: No chest pain Respiratory: Comments: No shortness of breath Exam Const: Other: Intubated and sedated HENMT: Mouth: Yes moist mucous membranes Eyes: EOM: EOMs intact bilaterally Neck: Neck: no JVD Resp: Other: Ventilated Cardio: Rate: regular rate Rhythm: regular rhythm Extrem: General: no edema and no pedal edema Objective Data Vital Signs Vital Signs: Vital Signs - 24 hr 08/04/24 10:00 08/04/24 10:00 08/04/24 10:00 Temperature Pulse Rate 91 89 89 Respiratory Rate 16 16 Blood Pressure 134/63 Pulse Oximetry 92 Oxygen Delivery Fraction of Inspired Oxygen 08/04/24 10:00 08/04/24 11:37 08/04/24 11:37 Temperature Pulse Rate 89 79 79 Respiratory Rate 16 16 16 Blood Pressure Pulse Oximetry Oxygen Delivery Fraction of Inspired Oxygen 08/04/24 11:49 08/04/24 11:52 08/04/24 12:00 Temperature Pulse Rate 83 80 Respiratory Rate 16 Blood Pressure Pulse Oximetry 94 Oxygen Delivery Mechanical Ventilation Mechanical Ventilation Fraction of Inspired Oxygen 45 45 08/04/24 12:00 08/04/24 12:00 08/04/24 12:00 Temperature 37.3 C Pulse Rate 79 79 Respiratory Rate 16 Blood Pressure 143/70 H Pulse Oximetry 94 Oxygen Delivery Fraction of Inspired Oxygen 45 08/04/24 12:00 08/04/24 12:00 08/04/24 13:15 Temperature Pulse Rate 89 86 85 Respiratory Rate 16 16 16 Blood Pressure Pulse Oximetry Oxygen Delivery Fraction of Inspired Oxygen 08/04/24 13:51 08/04/24 13:54 08/04/24 14:00 Temperature Pulse Rate 86 86 89 Respiratory Rate 16 16 Blood Pressure Pulse Oximetry 92 Oxygen Delivery Mechanical Ventilation Fraction of Inspired Oxygen 45 08/04/24 14:00 08/04/24 14:00 08/04/24 14:00 Temperature Pulse Rate 98 101 H 99 Respiratory Rate 16 16 Blood Pressure 141/71 H Pulse Oximetry 90 Oxygen Delivery Fraction of Inspired Oxygen 08/04/24 14:05 08/04/24 14:09 08/04/24 14:40 Temperature Pulse Rate 93 92 98 Respiratory Rate 16 16 Blood Pressure Pulse Oximetry 91 Oxygen Delivery Mechanical Ventilation Fraction of Inspired Oxygen 45 08/04/24 16:00 08/04/24 16:00 08/04/24 16:00 Temperature Pulse Rate 101 H 91 108 H Respiratory Rate 18 20 Blood Pressure Pulse Oximetry Oxygen Delivery Fraction of Inspired Oxygen 08/04/24 16:00 08/04/24 16:00 08/04/24 16:00 Temperature 37.6 C Pulse Rate 106 H Respiratory Rate 24 H Blood Pressure 164/78 H Pulse Oximetry 91 Oxygen Delivery Mechanical Ventilation Fraction of Inspired Oxygen 45 45 08/04/24 16:56 08/04/24 17:55 08/04/24 17:57 Temperature Pulse Rate 103 H 102 H 94 Respiratory Rate 24 H Blood Pressure Pulse Oximetry 91 91 Oxygen Delivery Mechanical Ventilation Mechanical Ventilation Fraction of Inspired Oxygen 45 45 08/04/24 18:00 08/04/24 18:00 08/04/24 18:00 Temperature Pulse Rate 98 98 98 Respiratory Rate 22 H 22 H Blood Pressure 148/70 H Pulse Oximetry 92 Oxygen Delivery Fraction of Inspired Oxygen 08/04/24 18:00 08/04/24 20:00 08/04/24 20:00 Temperature Pulse Rate 98 98 98 Respiratory Rate 22 H 19 19 Blood Pressure Pulse Oximetry Oxygen Delivery Fraction of Inspired Oxygen 08/04/24 20:00 08/04/24 20:00 08/04/24 20:00 Temperature 37.6 C H Pulse Rate 98 Respiratory Rate 19 Blood Pressure 150/67 H Pulse Oximetry 92 Oxygen Delivery Mechanical Ventilation Fraction of Inspired Oxygen 45 45 08/04/24 20:00 08/04/24 22:00 08/04/24 22:00 Temperature Pulse Rate 100 94 94 Respiratory Rate 20 Blood Pressure Pulse Oximetry Oxygen Delivery Fraction of Inspired Oxygen 08/04/24 22:01 08/04/24 22:04 08/04/24 22:07 Temperature Pulse Rate 94 93 93 Respiratory Rate 20 20 Blood Pressure 147/76 H Pulse Oximetry 94 94 Oxygen Delivery Mechanical Ventilation Fraction of Inspired Oxygen 45 08/04/24 22:30 08/04/24 23:57 08/05/24 00:00 Temperature Pulse Rate 97 94 92 Respiratory Rate 20 16 Blood Pressure Pulse Oximetry 90 Oxygen Delivery Mechanical Ventilation Fraction of Inspired Oxygen 45 08/05/24 00:00 08/05/24 00:00 08/05/24 00:01 Temperature 37.6 C H Pulse Rate 92 Respiratory Rate 16 Blood Pressure 120/62 Pulse Oximetry 90 Oxygen Delivery Mechanical Ventilation Fraction of Inspired Oxygen 45 45 08/05/24 02:00 08/05/24 02:00 08/05/24 02:00 Temperature Pulse Rate 95 95 95 Respiratory Rate 16 16 Blood Pressure 134/78 Pulse Oximetry 97 Oxygen Delivery Fraction of Inspired Oxygen 08/05/24 03:02 08/05/24 03:04 08/05/24 03:22 Temperature Pulse Rate 92 92 929 H Respiratory Rate 16 16 Blood Pressure Pulse Oximetry 96 Oxygen Delivery Mechanical Ventilation Fraction of Inspired Oxygen 45 08/05/24 04:00 08/05/24 04:00 08/05/24 04:00 Temperature 37.3 C Pulse Rate 84 Respiratory Rate 16 Blood Pressure 123/58 L Pulse Oximetry 96 Oxygen Delivery Mechanical Ventilation Fraction of Inspired Oxygen 45 45 08/05/24 04:00 08/05/24 04:00 08/05/24 04:33 Temperature Pulse Rate 84 85 Respiratory Rate 16 Blood Pressure Pulse Oximetry Oxygen Delivery Mechanical Ventilation Fraction of Inspired Oxygen 30 08/05/24 05:04 08/05/24 06:00 08/05/24 06:00 Temperature Pulse Rate 89 97 97 Respiratory Rate 16 Blood Pressure Pulse Oximetry 94 Oxygen Delivery Mechanical Ventilation Fraction of Inspired Oxygen 30 08/05/24 06:01 08/05/24 07:44 08/05/24 07:44 Temperature Pulse Rate 97 86 86 Respiratory Rate 16 16 Blood Pressure 164/65 H Pulse Oximetry 93 92 Oxygen Delivery Mechanical Ventilation Fraction of Inspired Oxygen 30 08/05/24 07:57 08/05/24 08:00 08/05/24 08:00 Temperature 37.4 C Pulse Rate 95 99 Respiratory Rate 16 18 Blood Pressure 161/73 H Pulse Oximetry 91 Oxygen Delivery Fraction of Inspired Oxygen 30 08/05/24 08:10 08/05/24 08:59 08/05/24 09:04 Temperature Pulse Rate 96 97 96 Respiratory Rate 16 Blood Pressure Pulse Oximetry 89 L 89 L Oxygen Delivery Mechanical Ventilation Mechanical Ventilation Fraction of Inspired Oxygen 30 30 Intake/Output Intake/Output: Intake & Output 08/02/24 08/03/24 08/04/24 08/05/24 23:59 23:59 23:59 23:59 Intake Total 3843.4 3304.4 2293.9 946.4 Output Total 1250 3800 3175 750 Balance 2593.4 -495.6 -881.1 196.4 Meds/Results Medications: Active Medications Generic Name Dose Route Start Last Admin Trade Name Freq PRN Reason Stop Dose Admin Acetylcysteine 200 mg 08/01/24 08:00 08/05/24 07:44 Acetylcysteine 20% Inhal Soln 800 Mg/4 Ml Vial INHALATION 200 mg Q6HRT RAISSA Administration Albuterol/Ipratropium 3 ml 08/01/24 14:00 08/05/24 07:44 Ipratropium 0.5 Mg/Albuterol Sulfate 2.5 Mg Ampul.Neb 3 Ml INHALATION 3 ml Q6HRT RAISSA Administration Atorvastatin Calcium 10 mg 07/31/24 21:00 08/04/24 21:50 Atorvastatin 10 Mg Tablet PO 10 mg QHS RAISSA Administration Bisacodyl 10 mg 07/30/24 20:15 Bisacodyl 10 Mg Suppository RECTAL ONCE PRN Constipation Dextrose 12.5 gm 07/31/24 00:46 Dextrose 50% 25 Gm/50 Ml Syringe IV PUSH PRN PRN Hypoglycemia Protocol Dornase Gerald 2.5 mg 08/01/24 08:00 08/05/24 07:57 Dornase Gerald Inh Soln 1 Mg/Ml 2.5 Ml Amp INHALATION 08/06/24 23:59 2.5 mg Q12HRT RAISSA Administration Enoxaparin Sodium 40 mg 07/31/24 09:00 08/05/24 09:04 Enoxaparin 40 Mg/0.4 Ml Syringe SUB-Q 40 mg DAILY RAISSA Administration Fluticasone/Umeclidinium/Vilanterol 1 puff 07/31/24 09:45 08/05/24 07:45 Fluticasone/Umeclidin/Vilanter 100-62.5-25 Mcg Ellipta INHALATION Not Given DAILYRT RAISSA Glucagon 1 mg 07/31/24 00:46 Glucagon For Inj 1 Mg Vial IM PRN PRN Hypoglycemia Protocol Glucose 15 gm 07/31/24 00:46 Glucose Oral Gel 15 Gm Of Glucse In 37.5 Gm Tube PO PRN PRN Hypoglycemia Protocol Hydralazine HCl 10 mg 08/05/24 07:42 08/05/24 09:06 Hydralazine Hcl 20 Mg/Ml Vial IV PUSH 10 mg Q4H PRN Administration Blood Pressure - High Ceftriaxone Sodium 2 gm in 100 mls @ 200 mls/hr 07/31/24 00:00 08/05/24 01:15 Rocephin 2 Gm/Ns 100 Ml IVPB Infused Q24H RAISSA Infusion Azithromycin 500 mg in 250 mls @ 250 mls/hr 07/31/24 01:00 08/05/24 01:34 Zithromax IVPB 08/05/24 23:59 Infused Q24H RAISSA Infusion Dextrose 1,000 mls @ 100 mls/hr 07/31/24 00:46 Dextrose 5% 1,000 Ml IVPB PRN PRN Hypoglycemia Protocol Fentanyl Citrate 2,500 mcg in 250 mls @ 0 mls/hr 07/31/24 01:55 08/04/24 21:57 Fentanyl 2,500 Mcg/Ns 250 Ml IV CONT Not Given .Q0M RAISSA Protocol Propofol 100 mls @ 0 mls/hr 08/01/24 07:55 08/05/24 06:00 Diprivan IV CONT 0 mcg/kg/min .Q0M RAISSA 0 mls/hr Titration Protocol Insulin Aspart 3 - 6 units 07/31/24 06:00 08/05/24 06:49 Insulin Aspart (*Bkc) 100 Units/Ml SUB-Q Not Given Q6HR RAISSA Protocol Magnesium Hydroxide 30 ml 07/30/24 20:15 Magnesium Hydroxide Susp 30 Ml Udc FEED TUBE DAILY PRN Constipation Methylprednisolone Sodium Succinate 20 mg 08/06/24 09:00 Methylprednisolone Sod Succ 40 Mg Vial IV PUSH 08/07/24 09:01 DAILY RAISSA Midazolam HCl 2 mg 07/30/24 20:27 07/30/24 21:14 Midazolam Hcl (*Crx) 2 Mg/2 Ml Vial IV PUSH 2 mg ONCE PRN Administration Agitation Multi-Ingred Cream/Lotion/Oil/Oint 1 applic 07/31/24 09:00 08/05/24 09:05 Mineral Oil/White Petrolatum Ointment EACH EYE 1 applic Q12HR RAISSA Administration Multi-Ingred Cream/Lotion/Oil/Oint 1 applic 08/05/24 01:47 08/05/24 06:51 Eucerin Cream 120 Gm Jar TOPICAL 1 applic PRN PRN Administration dry skin Pantoprazole Sodium 40 mg 07/31/24 09:00 08/05/24 09:04 Pantoprazole Sodium Iv 40 Mg Vial IV PUSH 40 mg DAILY RAISSA Administration Polyethylene Glycol 17 gm 08/02/24 11:00 08/03/24 17:47 Polyethylene Glycol 3350 17 Gm Powd.Pack PO 17 gm QAM PRN Administration Constipation Senna/Docusate Sodium 1 tab 08/02/24 21:00 08/04/24 21:50 Senna/Docusate Sodium Tablet PO 1 tab HS RAISSA Administration Sodium Chloride 10 ml 08/02/24 14:00 08/05/24 06:49 Central Line Flush IV PUSH 10 ml Q8HR RAISSA Administration Sodium Chloride 20 ml 08/02/24 09:06 Central Line Flush IV PUSH PRN PRN after blood draws Radiology Results: ITS Impressions Chest CTA 07/30/24 16:19 IMPRESSION: Right lung atelectasis including particularly upper and lower lobes; which may be due to malignant or radiation stricture of the right bronchial airways. Consider PET/CT correlation No pulmonary embolism Abdomen X-Ray 07/31/24 05:45 IMPRESSION: 1. Nonobstructive bowel gas pattern. Venous Doppler Study 08/04/24 10:39 IMPRESSION: 1. Patent bilateral upper extremity veins. No evidence of venous thrombosis. Chest CT 08/04/24 11:39 IMPRESSION: 1. Mild groundglass opacities in the lower lobes, consistent with pneumonia. 2. 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 Persistent complete collapse of right middle lobe. 3. Tracheobronchomalacia. 4. Small pleural effusions. 5. Mild emphysema. Labs Labs: Laboratory Results - last 24 hr 08/04/24 08/04/24 08/05/24 11:52 17:57 00:13 WBC RBC Hgb Hct MCV MCH MCHC RDW Plt Count MPV Immature Gran % (Auto) Neut % (Auto) Lymph % (Auto) [place] % (Auto) Eos % (Auto) Baso % (Auto) Lymph # (Auto) [place] # (Auto) Eos # (Auto) Baso # (Auto) Abs Immat Gran (auto) Absolute Neuts (auto) Absolute Nucleated RBC Nucleated RBC % Puncture Site ABG pH ABG pCO2 ABG pO2 ABG PO2/FiO2 Ratio ABG HCO3 ABG O2 Saturation ABG O2 Content ABG Base Excess A-a Gradient Oxyhemoglobin Carboxyhemoglobin Methemoglobin Reduced Hemoglobin Total Hemoglobin O2 Delivery Device O2 Liters/Min Minute Volume Vent Rate Vent Mode FiO2 Tidal Volume PEEP Peak Inspir Pressure Pressure Support Sodium Potassium Chloride Carbon Dioxide Anion Gap BUN Creatinine Estim Creat Clear Calc Estimated GFR Glucose POC Capillary Glucose 178 H 165 H 134 H Calcium Phosphorus Magnesium Total Bilirubin AST ALT Alkaline Phosphatase C-Reactive Protein Total Protein Albumin Triglycerides 08/05/24 08/05/24 04:44 04:56 WBC 17.3 H RBC 4.13 L Hgb 12.6 Hct 41.4 MCV 100.2 H MCH 30.5 MCHC 30.4 L RDW 14.1 Plt Count 186 MPV 10.8 H Immature Gran % (Auto) 11.2 H Neut % (Auto) 75.3 H Lymph % (Auto) 9.0 L [place] % (Auto) 4.3 Eos % (Auto) 0.1 Baso % (Auto) 0.1 L Lymph # (Auto) 1.55 [place] # (Auto) 0.8 H Eos # (Auto) 0.0 Baso # (Auto) 0.0 Abs Immat Gran (auto) 1.94 H Absolute Neuts (auto) 13.1 H Absolute Nucleated RBC 0.080 H Nucleated RBC % 0.5 H Puncture Site Right radial ABG pH 7.452 H ABG pCO2 48.9 H ABG pO2 65.8 L ABG PO2/FiO2 Ratio 2.19 ABG HCO3 33.4 H ABG O2 Saturation 93.6 L ABG O2 Content 17.3 ABG Base Excess 8.1 A-a Gradient 90.6 Oxyhemoglobin 92.0 Carboxyhemoglobin 0.6 Methemoglobin 0.2 Reduced Hemoglobin 7.2 H Total Hemoglobin 13.4 O2 Delivery Device Ventilator O2 Liters/Min Not Reportable Minute Volume Not Reportable Vent Rate 16 Vent Mode Cmv FiO2 30 Tidal Volume 480 PEEP 5 Peak Inspir Pressure Not Reportable Pressure Support Not Reportable Sodium 140 Potassium 3.9 Chloride 106 Carbon Dioxide 36 H Anion Gap -2 L BUN 45 H Creatinine 0.50 L Estim Creat Clear Calc 95 Estimated GFR > 60 Glucose 106 POC Capillary Glucose Calcium 8.7 Phosphorus 3.4 Magnesium 2.3 Total Bilirubin 0.9 AST 101 H ALT 170 H Alkaline Phosphatase 73 C-Reactive Protein 1.3 H Total Protein 6.0 L Albumin 3.1 L Triglycerides 174 H
[2024-08-05 10:29] LABS: Hepatitis B Surface Antigen Negative (Negative)
[2024-08-05 10:35] LABS: HAV RESULT Negative (Negative); Hepatitis B Core IgM Result Negative (Negative)
[2024-08-05 10:46] LABS: Hepatitis C Virus Antibody Negative (Negative)
[2024-08-05 12:03] LABS: Glucose Point of Care 138 mg/dl (65-105)
[2024-08-05] MEDS: METOPROLOL TARTRATE INJ 5 MG/5 ML VIAL IV PUSH (12:27)
[2024-08-05] MEDS: lisinopriL 10 MG TABLET PO (12:27)
[2024-08-05] MEDS: polyethylene glycoL 3350 17 GM POWD.PACK PO (12:51)
[2024-08-05] MEDS: LACTULOSE 20 GM/30 ML UDC PO (15:59)
[2024-08-05 17:05] LABS: Glucose Point of Care 153 mg/dl (65-105)
[2024-08-05] MEDS: SENNA/DOCUSATE SODIUM TABLET 1 TAB PO (21:32)
[2024-08-05] MEDS: ATORVASTATIN 10 MG TABLET PO (21:32)
[2024-08-06] VITALS (25 sets, daily range): BP systolic 104–140; BP diastolic 51–64; PULSE 79–102; RESP 16–27; TEMP 37.1–37.3; O2SAT 90–98
[2024-08-06] MEDS: cefTRIAXone 2 GM/NS 100 ML 2 GM/100 ML BAG IVPB (00:32)
[2024-08-06 00:48] LABS: Glucose Point of Care 134 mg/dl (65-105)
[2024-08-06] MEDS: ACETYLCYSTEINE 20% INHAL SOLN 800 MG/4 ML VIAL 200 MG INHALATION ×4 (02:06→20:45)
[2024-08-06] MEDS: IPRATROPIUM 0.5 MG/ALBUTEROL SULFATE 2.5 MG AMPUL.NEB 3 ML INHALATION ×4 (02:06→20:45)
[2024-08-06] MEDS: CENTRAL LINE FLUSH 10 ML IV PUSH ×3 (05:15→22:00)
[2024-08-06 05:18] LABS: Alveolar/Arterial O2 Gradient 155.2 mmHg; Base Excess ABG 6.4 mEq/l (+/-2.0); HCO3 ABG 32.2 mEq/l (22.0-26.0); Oxygen Saturation ABG 94.5 % (95.0-100.0); PCO2 ABG 50.6 mmHg (35.0-45.0); PO2 ABG 71.8 mmHg (80.0-100.0); Total Hemoglobin 13.7 g/dL (12.0-18.0); pH ABG 7.421 (7.350-7.450)
[2024-08-06 05:19] LABS: Carboxyhemoglobin 0.9 % THb (0-2.0); Device VENTILATOR; Fractional Inspired Oxygen 40 %; Methemoglobin ABG 0.1 %THb (0-1.5); Modified Allen's Test Pass; Oxygen Content ABG 17.9 %vol (16.0-22.0); Oxyhemoglobin 92.7 % THb (90.0-100.0); Reduced Hemoglobin 6.3 %THb (0-5.0); Site Drawn LEFT RADIAL
[2024-08-06 05:20] LABS: Arterial Blood Gas PEEP 5 cmH2O; Arterial Blood Gas Tidal Volume 480 ml; Arterial Blood Gas Vent Mode CMV; Arterial Blood Gas Ventilator rate 16 /MIN
[2024-08-06 05:23] LABS: Basophils Absolute Auto 0.1 K/mm3 (0.0-0.1); Basophils Percent Auto 0.8 % (0.2-1.2); Eosinophils Percent Auto 0.2 % (0-4.4); Hematocrit 42.3 % (37.0-47.0); Immature Granulocyte Absolute 1.15 K/mm3 (0.00-0.031); Immature Granulocyte Percent A 7.2 % (0-0.5); Lymphocytes Absolute Auto 1.88 K/mm3 (0.9-3.2); Lymphocytes Percent Auto 11.8 % (18.3-44.2); Mean Corpuscular HGB Conc 30.7 g/dl (32-36); Mean Corpuscular Hemoglobin 30.5 pg (26-34); Mean Corpuscular Volume 99.3 fl (80-100); Mean Platelet Volume 10.5 fl (7.4-10.4); Monocytes Absolute Auto 0.8 K/mm3 (0.1-0.6); Monocytes Percent Auto 5.1 % (2.6-8.5); Neutrophils Percent Auto 74.9 % (45.5-73.1); Nucleated Red Blood Cells Perc 0.1 % (0.0-0.2); Platelet Count Result 159 k/mm3 (150-375); Red Blood Count 4.26 M/mm3 (4.2-5.4); Red Cell Distribution Width 14.5 % (11.5-14.5)
[2024-08-06 05:30] LABS: Alanine Aminotransferase 219 U/L (6-35); Albumin Level 2.9 g/dL (3.5-5.1); Alkaline Phosphatase 89 U/L (38-126); Aspartate Amino Transferase 85 U/L (14-36); Bilirubin,Total 0.9 mg/dL (0.2-1.3); Blood Urea Nitrogen 51 mg/dL (7-17); Calcium 8.9 mg/dL (8.4-10.2); Carbon Dioxide > 40 mmol/L (22-30); Chloride 101 mmol/L (98-107); Estimated CRCL calculation 80 ml/min; Estimated Glomerular Filt Rate > 60; Glucose 117 mg/dL (65-110); Magnesium 2.2 mg/dL (1.6-2.3); Potassium 4.2 mmol/L (3.4-5.0); Sodium 140 mmol/L (137-145)
[2024-08-06 05:58] LABS: Glucose Point of Care 118 mg/dl (65-105)
[2024-08-06] MEDS: DORNASE ALFA INH SOLN 1 MG/ML 2.5 ML AMP 2.5 MG INHALATION ×2 (08:19→20:45)
[2024-08-06] MEDS: ENOXAPARIN 40 MG/0.4 ML SYRINGE SUB-Q (08:45)
[2024-08-06] MEDS: lisinopriL 10 MG TABLET PO (08:45)
[2024-08-06] MEDS: methylPREDNISolone SOD SUCC 40 MG VIAL 20 MG IV PUSH (08:46)
[2024-08-06] MEDS: ACETAMINOPHEN ELIXIR 325 MG/10.15 ML UDC 650 MG PO (08:47)
[2024-08-06] MEDS: PANTOPRAZOLE SODIUM IV 40 MG VIAL IV PUSH (08:47)
[2024-08-06] MEDS: polyethylene glycoL 3350 17 GM POWD.PACK PO (08:47)
[2024-08-06] MEDS: MINERAL OIL/WHITE PETROLATUM OINTMENT 1 APPLIC EACH EYE ×2 (08:48→20:19)
--- NOTE | 2024-08-06 09:18 | PM.PNCARD ---
Progress Note: A&P Assessment and Plan (1) Right heart failure with reduced right ventricular function: Code(s): I50.810 - Right heart failure, unspecified Status: Acute Plan 74-year-old woman with lung cancer (05/2017) status post chemoradiation therapy, emphysema, former tobacco user, and hyperlipidemia initially presented to the emergency room with shortness of breath and admitted for acute hypoxic hypercarbic respiratory failure requiring mechanical ventilation Right ventricular failure -the transthoracic echocardiogram was very technically difficult with very limited views however does suggest severely reduced systolic function of the right ventricle RV failure likely secondary to underlying significant lung disease. -she will also need a repeat outpatient transthoracic echocardiogram BUN and creatinine ratio would indicate pre renal azotemia. White blood cell count [id number] Weaning to extubate Subjective Date/time seen: 08/06/24 09:18 Interval history: Reason for consult: Hypercapnic respiratory failure requiring intubation in the ER after failing BiPAP, COPD exacerbation, pneumonia Date of service 08/05/2024: Weaning to extubate. His answering yes and no questions by shaking her head. Denies chest pain or shortness of breath Date of service 08/06/2024: Still intubated she is responding and awake and oriented. No chest pain Review of Systems Cardiovascular: Comments: No chest pain Respiratory: Comments: Hemoptysis Exam Const: Other: Intubated and sedated HENMT: Mouth: Yes moist mucous membranes Eyes: EOM: EOMs intact bilaterally Neck: Neck: no JVD Resp: Other: Ventilated Cardio: Rate: regular rate Rhythm: regular rhythm Extrem: General: no edema and no pedal edema Objective Data Vital Signs Vital Signs: Vital Signs - 24 hr 08/05/24 10:00 08/05/24 10:00 08/05/24 10:00 Temperature 37.4 C Pulse Rate 100 100 98 Respiratory Rate 26 H 26 H Blood Pressure 163/73 H Pulse Oximetry 89 L Oxygen Delivery Fraction of Inspired Oxygen 08/05/24 10:57 08/05/24 12:00 08/05/24 12:00 Temperature 37.7 C H Pulse Rate 97 101 H Respiratory Rate 30 H Blood Pressure 188/81 H Pulse Oximetry 92 94 94 Oxygen Delivery Mechanical Ventilation Mechanical Ventilation Fraction of Inspired Oxygen 40 40 08/05/24 12:00 08/05/24 12:00 08/05/24 12:27 Temperature Pulse Rate 97 101 H Respiratory Rate Blood Pressure Pulse Oximetry Oxygen Delivery Fraction of Inspired Oxygen 40 08/05/24 13:26 08/05/24 13:26 08/05/24 13:41 Temperature Pulse Rate 86 94 88 Respiratory Rate 28 H Blood Pressure Pulse Oximetry 94 95 Oxygen Delivery Mechanical Ventilation Mechanical Ventilation Fraction of Inspired Oxygen 40 40 08/05/24 13:41 08/05/24 14:00 08/05/24 14:00 Temperature Pulse Rate 88 85 86 Respiratory Rate 24 H 19 Blood Pressure 151/73 H Pulse Oximetry 94 Oxygen Delivery Fraction of Inspired Oxygen 08/05/24 14:23 08/05/24 16:00 08/05/24 16:00 Temperature 37.6 C 37.4 C Pulse Rate 98 93 Respiratory Rate 20 Blood Pressure 152/67 H Pulse Oximetry 96 Oxygen Delivery Fraction of Inspired Oxygen 08/05/24 16:00 08/05/24 16:00 08/05/24 16:42 Temperature Pulse Rate 100 Respiratory Rate Blood Pressure Pulse Oximetry 95 95 Oxygen Delivery Mechanical Ventilation Mechanical Ventilation Fraction of Inspired Oxygen 40 40 40 08/05/24 18:00 08/05/24 18:00 08/05/24 20:00 Temperature Pulse Rate 93 93 99 Respiratory Rate 17 Blood Pressure 126/68 Pulse Oximetry 95 Oxygen Delivery Fraction of Inspired Oxygen 08/05/24 20:00 08/05/24 20:00 08/05/24 20:01 Temperature 38.3 C H Pulse Rate 100 Respiratory Rate 20 Blood Pressure 139/70 Pulse Oximetry 92 Oxygen Delivery Mechanical Ventilation Fraction of Inspired Oxygen 40 40 08/05/24 20:28 08/05/24 20:28 08/05/24 20:35 Temperature Pulse Rate 97 91 100 Respiratory Rate 16 16 Blood Pressure Pulse Oximetry 93 Oxygen Delivery Mechanical Ventilation Fraction of Inspired Oxygen 40 08/05/24 20:48 08/05/24 21:01 08/05/24 22:00 Temperature Pulse Rate 102 H 95 98 Respiratory Rate 19 17 Blood Pressure 127/61 Pulse Oximetry 95 Oxygen Delivery Fraction of Inspired Oxygen 08/05/24 22:01 08/05/24 23:14 08/06/24 00:00 Temperature Pulse Rate 98 86 Respiratory Rate 21 H Blood Pressure 126/65 Pulse Oximetry 96 94 Oxygen Delivery Mechanical Ventilation Mechanical Ventilation Fraction of Inspired Oxygen 40 40 08/06/24 00:00 08/06/24 00:00 08/06/24 00:00 Temperature 37.3 C Pulse Rate 83 83 Respiratory Rate 16 Blood Pressure 123/64 Pulse Oximetry 94 Oxygen Delivery Fraction of Inspired Oxygen 40 08/06/24 02:00 08/06/24 02:00 08/06/24 02:06 Temperature Pulse Rate 85 85 89 Respiratory Rate 16 Blood Pressure 128/61 Pulse Oximetry 96 95 Oxygen Delivery Mechanical Ventilation Fraction of Inspired Oxygen 40 08/06/24 02:06 08/06/24 02:17 08/06/24 04:00 Temperature Pulse Rate 89 85 Respiratory Rate 16 16 Blood Pressure Pulse Oximetry Oxygen Delivery Mechanical Ventilation Fraction of Inspired Oxygen 40 08/06/24 04:00 08/06/24 04:00 08/06/24 04:00 Temperature 37.1 C Pulse Rate 87 87 Respiratory Rate 19 Blood Pressure 127/59 L Pulse Oximetry 98 Oxygen Delivery Fraction of Inspired Oxygen 40 08/06/24 05:27 08/06/24 06:00 08/06/24 06:00 Temperature Pulse Rate 90 85 85 Respiratory Rate 16 Blood Pressure 111/51 L Pulse Oximetry 92 93 Oxygen Delivery Mechanical Ventilation Fraction of Inspired Oxygen 40 08/06/24 08:00 08/06/24 08:00 08/06/24 08:23 Temperature 37.2 C Pulse Rate 81 79 Respiratory Rate 16 Blood Pressure 104/57 L Pulse Oximetry 94 95 Oxygen Delivery Mechanical Ventilation Fraction of Inspired Oxygen 40 40 08/06/24 08:24 08/06/24 08:42 Temperature Pulse Rate 79 82 Respiratory Rate 25 H 25 H Blood Pressure Pulse Oximetry Oxygen Delivery Fraction of Inspired Oxygen Intake/Output Intake/Output: Intake & Output 08/03/24 08/04/24 08/05/24 08/06/24 23:59 23:59 23:59 23:59 Intake Total 3304.4 2293.9 1429.4 682 Output Total 3800 3175 3750 875 [facility] -495.6 -881.1 -2320.6 -193 Meds/Results Medications: Active Medications Generic Name Dose Route Start Last Admin Trade Name Freq PRN Reason Stop Dose Admin Acetaminophen 650 mg 08/05/24 23:28 08/06/24 08:47 Acetaminophen Elixir 325 Mg/10.15 Ml Udc PO 650 mg Q6H PRN Administration Mild Pain (1-3) or Fever Acetylcysteine 200 mg 08/01/24 08:00 12/29/24 08:19 Acetylcysteine 20% Inhal Soln 800 Mg/4 Ml Vial INHALATION 200 mg Q6HRT RAISSA Administration Albuterol/Ipratropium 3 ml 08/01/24 14:00 08/06/24 08:19 Ipratropium 0.5 Mg/Albuterol Sulfate 2.5 Mg Ampul.Neb 3 Ml INHALATION 3 ml Q6HRT RAISSA Administration Atorvastatin Calcium 10 mg 07/31/24 21:00 08/05/24 21:32 Atorvastatin 10 Mg Tablet PO 10 mg QHS RAISSA Administration Bisacodyl 10 mg 07/30/24 20:15 Bisacodyl 10 Mg Suppository RECTAL ONCE PRN Constipation Dextrose 12.5 gm 07/31/24 00:46 Dextrose 50% 25 Gm/50 Ml Syringe IV PUSH PRN PRN Hypoglycemia Protocol Dornase Gerald 2.5 mg 08/01/24 08:00 08/06/24 08:19 Dornase Gerald Inh Soln 1 Mg/Ml 2.5 Ml Amp INHALATION 08/06/24 23:59 2.5 mg Q12HRT RAISSA Administration Enoxaparin Sodium 40 mg 07/31/24 09:00 08/06/24 08:45 Enoxaparin 40 Mg/0.4 Ml Syringe SUB-Q 40 mg DAILY RAISSA Administration Fluticasone/Umeclidinium/Vilanterol 1 puff 07/31/24 09:45 08/05/24 07:45 Fluticasone/Umeclidin/Vilanter 100-62.5-25 Mcg Ellipta INHALATION Not Given DAILYRT RAISSA Glucagon 1 mg 07/31/24 00:46 Glucagon For Inj 1 Mg Vial IM PRN PRN Hypoglycemia Protocol Glucose 15 gm 07/31/24 00:46 Glucose Oral Gel 15 Gm Of Glucse In 37.5 Gm Tube PO PRN PRN Hypoglycemia Protocol Hydralazine HCl 10 mg 08/05/24 07:42 08/05/24 09:06 Hydralazine Hcl 20 Mg/Ml Vial IV PUSH 10 mg Q4H PRN Administration Blood Pressure - High Ceftriaxone Sodium 2 gm in 100 mls @ 200 mls/hr 07/31/24 00:00 08/06/24 01:06 Rocephin 2 Gm/Ns 100 Ml IVPB Infused Q24H RAISSA Infusion Dextrose 1,000 mls @ 100 mls/hr 07/31/24 00:46 Dextrose 5% 1,000 Ml IVPB PRN PRN Hypoglycemia Protocol Fentanyl Citrate 2,500 mcg in 250 mls @ 0 mls/hr 07/31/24 01:55 08/04/24 21:57 Fentanyl 2,500 Mcg/Ns 250 Ml IV CONT Not Given .Q0M RAISSA Protocol Propofol 100 mls @ 0 mls/hr 08/01/24 07:55 08/05/24 12:56 Diprivan IV CONT Not Given .Q0M RAISSA Protocol Insulin Aspart 3 - 6 units 07/31/24 06:00 08/06/24 05:15 Insulin Aspart (*Bkc) 100 Units/Ml SUB-Q Not Given Q6HR [facility] Protocol Lisinopril 10 mg 08/05/24 12:20 08/06/24 08:45 Lisinopril 10 Mg Tablet PO 10 mg DAILY RAISSA Administration Magnesium Hydroxide 30 ml 07/30/24 20:15 Magnesium Hydroxide Susp 30 Ml Udc FEED TUBE DAILY PRN Constipation Methylprednisolone Sodium Succinate 20 mg 08/06/24 09:00 08/06/24 08:46 Methylprednisolone Sod Succ 40 Mg Vial IV PUSH 08/07/24 09:01 20 mg DAILY RAISSA Administration Midazolam HCl 2 mg 07/30/24 20:27 07/30/24 21:14 Midazolam Hcl (*Crx) 2 Mg/2 Ml Vial IV PUSH 2 mg ONCE PRN Administration Agitation Multi-Ingred Cream/Lotion/Oil/Oint 1 applic 07/31/24 09:00 08/06/24 08:48 Mineral Oil/White Petrolatum Ointment EACH EYE 1 applic Q12HR RAISSA Administration Multi-Ingred Cream/Lotion/Oil/Oint 1 applic 08/05/24 01:47 08/05/24 06:51 Eucerin Cream 120 Gm Jar TOPICAL 1 applic PRN PRN Administration dry skin Pantoprazole Sodium 40 mg 07/31/24 09:00 08/06/24 08:47 Pantoprazole Sodium Iv 40 Mg Vial IV PUSH 40 mg DAILY RAISSA Administration Polyethylene Glycol 17 gm 08/06/24 09:00 08/06/24 08:47 Polyethylene Glycol 3350 17 Gm Powd.Pack PO 17 gm QAM RAISSA Administration Senna/Docusate Sodium 1 tab 08/02/24 21:00 08/05/24 21:32 Senna/Docusate Sodium Tablet PO 1 tab HS RAISSA Administration Sodium Chloride 10 ml 08/02/24 14:00 08/06/24 05:15 Central Line Flush IV PUSH 10 ml Q8HR RAISSA Administration Sodium Chloride 20 ml 08/02/24 09:06 Central Line Flush IV PUSH PRN PRN after blood draws Radiology Results: ITS Impressions Chest CTA 07/30/24 16:19 IMPRESSION: Right lung atelectasis including particularly upper and lower lobes; which may be due to malignant or radiation stricture of the right bronchial airways. Consider PET/CT correlation No pulmonary embolism Abdomen X-Ray 07/31/24 05:45 IMPRESSION: 1. Nonobstructive bowel gas pattern. Venous Doppler Study 08/04/24 10:39 IMPRESSION: 1. Patent bilateral upper extremity veins. No evidence of venous thrombosis. Chest CT 08/04/24 11:39 IMPRESSION: 1. Mild groundglass opacities in the lower lobes, consistent with pneumonia. 2. 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 Persistent complete collapse of right middle lobe. 3. Tracheobronchomalacia. 4. Small pleural effusions. 5. Mild emphysema. Chest X-Ray 08/05/24 10:09 IMPRESSION: 1. Persistent right parahilar and right upper lobe paramediastinal opacities consistent with radiation fibrosis. 2. Unchanged small right pleural effusion with bibasilar opacities which could represent atelectasis or pneumonia. 2. Cardiomegaly. Abdomen Ultrasound 08/05/24 12:19 IMPRESSION: 1. Cholelithiasis within the otherwise normal-appearing gallbladder. Labs Labs: Laboratory Results - last 24 hr 08/05/24 08/05/24 08/05/24 09:19 11:30 16:57 WBC RBC Hgb Hct MCV MCH MCHC RDW Plt Count MPV Immature Gran % (Auto) Neut % (Auto) Lymph % (Auto) [place] % (Auto) Eos % (Auto) Baso % (Auto) Lymph # (Auto) [place] # (Auto) Eos # (Auto) Baso # (Auto) Abs Immat Gran (auto) Absolute Neuts (auto) Absolute Nucleated RBC Nucleated RBC % Puncture Site ABG pH ABG pCO2 ABG pO2 ABG PO2/FiO2 Ratio ABG HCO3 ABG O2 Saturation ABG O2 Content ABG Base Excess A-a Gradient Oxyhemoglobin Carboxyhemoglobin Methemoglobin Reduced Hemoglobin Total Hemoglobin O2 Delivery Device O2 Liters/Min Minute Volume Vent Rate Vent Mode FiO2 Tidal Volume PEEP Peak Inspir Pressure Pressure Support Sodium Potassium Chloride Carbon Dioxide Anion Gap BUN Creatinine Estim Creat Clear Calc Estimated GFR Glucose POC Capillary Glucose 138 H 153 H Calcium Phosphorus Magnesium Total Bilirubin AST ALT Alkaline Phosphatase Total Protein Albumin Hepatitis A IgM Ab Negative Hep Bs Antigen Negative Hep B Core IgM Ab Negative Hepatitis C Ab Screen Negative 08/06/24 08/06/24 08/06/24 00:30 05:01 05:10 WBC 16.0 H RBC 4.26 Hgb 13.0 Hct 42.3 MCV 99.3 MCH 30.5 MCHC 30.7 L RDW 14.5 Plt Count 159 MPV 10.5 H Immature Gran % (Auto) 7.2 H Neut % (Auto) 74.9 H Lymph % (Auto) 11.8 L [place] % (Auto) 5.1 Eos % (Auto) 0.2 Baso % (Auto) 0.8 Lymph # (Auto) 1.88 [place] # (Auto) 0.8 H Eos # (Auto) 0.0 Baso # (Auto) 0.1 Abs Immat Gran (auto) 1.15 H Absolute Neuts (auto) 12.0 H Absolute Nucleated RBC 0.020 H Nucleated RBC % 0.1 Puncture Site Left radial ABG pH 7.421 ABG pCO2 50.6 H ABG pO2 71.8 L ABG PO2/FiO2 Ratio 1.80 ABG HCO3 32.2 H ABG O2 Saturation 94.5 L ABG O2 Content 17.9 ABG Base Excess 6.4 A-a Gradient 155.2 Oxyhemoglobin 92.7 Carboxyhemoglobin 0.9 Methemoglobin 0.1 Reduced Hemoglobin 6.3 H Total Hemoglobin 13.7 O2 Delivery Device Ventilator O2 Liters/Min Not Reportable Minute Volume Not Reportable Vent Rate 16 Vent Mode Cmv FiO2 40 Tidal Volume 480 PEEP 5 Peak Inspir Pressure Not Reportable Pressure Support Not Reportable Sodium 140 Potassium 4.2 Chloride 101 Carbon Dioxide > 40 H Anion Gap BUN 51 H Creatinine 0.60 L Estim Creat Clear Calc 80 Estimated GFR > 60 Glucose 117 H POC Capillary Glucose 134 H Calcium 8.9 Phosphorus 4.0 Magnesium 2.2 Total Bilirubin 0.9 AST 85 H ALT 219 H Alkaline Phosphatase 89 Total Protein 6.0 L Albumin 2.9 L Hepatitis A IgM Ab Hep Bs Antigen Hep B Core IgM Ab Hepatitis C Ab Screen 08/06/24 05:14 WBC RBC Hgb Hct MCV MCH MCHC RDW Plt Count MPV Immature Gran % (Auto) Neut % (Auto) Lymph % (Auto) [place] % (Auto) Eos % (Auto) Baso % (Auto) Lymph # (Auto) [place] # (Auto) Eos # (Auto) Baso # (Auto) Abs Immat Gran (auto) Absolute Neuts (auto) Absolute Nucleated RBC Nucleated RBC % Puncture Site ABG pH ABG pCO2 ABG pO2 ABG PO2/FiO2 Ratio ABG HCO3 ABG O2 Saturation ABG O2 Content ABG Base Excess A-a Gradient Oxyhemoglobin Carboxyhemoglobin Methemoglobin Reduced Hemoglobin Total Hemoglobin O2 Delivery Device O2 Liters/Min Minute Volume Vent Rate Vent Mode FiO2 Tidal Volume PEEP Peak Inspir Pressure Pressure Support Sodium Potassium Chloride Carbon Dioxide Anion Gap BUN Creatinine Estim Creat Clear Calc Estimated GFR Glucose POC Capillary Glucose 118 H Calcium Phosphorus Magnesium Total Bilirubin AST ALT Alkaline Phosphatase Total Protein Albumin Hepatitis A IgM Ab Hep Bs Antigen Hep B Core IgM Ab Hepatitis C Ab Screen
[2024-08-06 11:04] LABS: Glucose Point of Care 147 mg/dl (65-105)
[2024-08-06 12:34] LABS: Alveolar/Arterial O2 Gradient 148.8 mmHg; Base Excess ABG 9.3 mEq/l (+/-2.0); Fractional Inspired Oxygen 40 %; HCO3 ABG 35.2 mEq/l (22.0-26.0); Oxygen Content ABG 19.1 %vol (16.0-22.0); Oxygen Saturation ABG 95.5 % (95.0-100.0); PCO2 ABG 52.5 mmHg (35.0-45.0); Total Hemoglobin 14.4 g/dL (12.0-18.0); pH ABG 7.444 (7.350-7.450)
[2024-08-06 12:37] LABS: Device VENTILATOR; Modified Allen's Test Pass; Site Drawn RIGHT RADIAL
[2024-08-06 12:38] LABS: Arterial Blood Gas PEEP 5 cmH2O; Arterial Blood Gas Pressure Support 10 cmH2O; Arterial Blood Gas Vent Mode SPONTANEOUS
--- NOTE | 2024-08-06 13:31 | WPDINTPN ---
Progress Note: A&P Assessment and Plan (1) Acute hypercapnic respiratory failure: Code(s): J96.02 - Acute respiratory failure with hypercapnia Status: Acute Assessment and Plan: 07/30: Patient presented with acute hypoxic and hypercarbic respiratory failure. 07/30: Failed trial of BiPAP in the ER and was intubated -currently on CMV mode of ventilation, peep of 5, 30% FiO2, wean O2 to maintain O2 sats > 90-92%, -no wheezing, continue to wean steroids to off -continue ceftriaxone, azithromycin (07/30) -discontinue vancomycin (08/03) -influenza, RSV, COVID negative -secretions have improved with Mucomyst and Pulmozyme -continue DuoNebs -08/03: Status post bronchoscopy,, was also present in the room with Dr. Smith, right middle and lower lobe collapse he, increased secretions, was able to get a BAL and sent for Gram stain and culture -08/04: CT scan of chest as under, currently sedated with fentanyl and propofol infusion, have asked the bedside RN to start decreasing the propofol and fentanyl and place patient on Precedex infusion, will try SBT today 08/05: Patient responded well to diuresis, was placed on SBT, tolerated around 2 hours but had developed respiratory distress, tachycardic, tachypnea and was switched back to CMV mode of ventilation 08/06: Patient again responded well to diuresis and was in negative fluid balance. Was placed on pressure support ventilation 10/5 which was further decreased to 8/5. Tolerated well for around 2 hours and she was in respiratory distress with tachycardia, AFib, tachypnea so was placed back on the ventilator P Right middle and lower lobe collapse likely causing issues with liberation from the ventilator, will discuss with pulmonology at [facility], and transfer her for interventional pulmonology 08/04: CT chest noncontrast IMPRESSION: 1. Mild groundglass opacities in the lower lobes, consistent with pneumonia. 2. 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 Persistent complete collapse of right middle lobe. 3. Tracheobronchomalacia. 4. Small pleural effusions. 5. Mild emphysema. (2) Acute exacerbation of chronic obstructive pulmonary disease: Code(s): J44.1 - Chronic obstructive pulmonary disease with (acute) exacerbation Status: Acute Assessment and Plan: Continue bronchodilators, currently on mechanical ventilation -wean steroids (3) Pneumonia: Code(s): J18.9 - Pneumonia, unspecified organism Status: Acute Assessment and Plan: Continue antibiotics, bronchodilators -07/30: Preliminary blood cultures are negative x2 -07/30: Urine cultures are negative -08/01: Sputum cultures no growth so far (4) Diabetes: Code(s): E11.9 - Type 2 diabetes mellitus without complications Status: Acute Assessment and Plan: Continue sliding scale insulin and Accu-Cheks -hemoglobin A1c 5.7 this admission (5) Elevated troponin: Code(s): R79.89 - Other specified abnormal findings of blood chemistry Status: Acute Assessment and Plan: Elevated troponin, trending down, likely related to type 2 infarct secondary severe hypoxia as patient was saturating 44% on room air upon arrival of the EMS at her house -there was no complains of chest pain -severely reduced right systolic function: appreciate cardiology evaluation and recommendations, -continue Lasix -discussed with cardiology regarding EDDIE-inhibitor 08/01: Echocardiogram Summary 1. Very technically difficult study with limited views. 2. The left ventricle grossly appears normal size and systolic function in the available and technically difficult views that were obtained in this study. 3. The right ventricle appears dilated with severely reduced systolic function in the available and technically difficult views that were obtained in this study. 4. Dilated inferior vena cava with <50% collapse upon inspiration consistent with significantly elevated right atrial pressure, 15 mmHg. (6) Electrolyte abnormality: Code(s): E87.8 - Other disorders of electrolyte and fluid balance, not elsewhere classified Status: Acute Assessment and Plan: Potassium and magnesium normalized after replacement Plan DVT prophylaxis: Lovenox Stress ulcer prophylaxis: Protonix Nutrition: Tolerating tube feeds, continue Code Status: Full code Critical Care Time Spent: 36 minutes Discussed with spouse and daughter in rounds and updated them with patient's condition and plan of care. They are aware that patient is failing her her breathing trials,, discussed with them regarding transferring the patient to [place] which she has had her treatment for her lung cancer and radiation, for evaluation by Interventional pulmonology for the collapse of her right middle and lower lobe. The and the daughter are agreeable. I called [facility] and patient has been accepted to the ICU, attending/accepted physician is Dr. Lopez. Due to a high probability of clinically significant, life threatening deterioration, the patient required my highest level of preparedness to intervene emergently and I personally spent this critical care time directly and personally managing the patient. This critical care time included obtaining a history; examining the patient; pulse oximetry; ordering and review of studies; arranging urgent treatment with development of a management plan; evaluation of patient's response to treatment; frequent reassessment; and discussions with other providers. It was exclusive of separately billable procedures and treating other patients and teaching time. Please see Assessment and Plan section and the rest of the note for further information on patient assessment and treatment This dictation may have been done utilizing a voice recognition system. Attempts have been made to correct errors. However, there may be uncorrected grammatical, spelling, and recognitions errors present. Subjective Date/time seen: 08/06/24 13:31 Interval history: Reason for consult: Hypercapnic respiratory failure requiring intubation in the ER after failing BiPAP, COPD exacerbation, pneumonia 07/30: Intubated 08/03: Bronchoscopy 08/06/2024: Patient seen examined the ICU, remains intubated on CMV mode of ventilation, peep 5, 40% FiO2. Patient did fairly well on SBT yesterday but seemed to get tired and had difficulty breathing and looked distressed. Patient currently off all sedation for the last 48 hours Patient opens eyes, follows simple commands in all extremities. Responded well to diuresis, negative fluid balance in the last 24 hours. ETT secretions are better. Tolerating tube feeds, positive bowel movement. Hemodynamically stable and afebrile Review of Systems Review of Systems: ROS unobtainable: Yes unobtainable due to endotracheal tube, unobtainable due to medical condition and unobtainable due to mental status Exam Narrative: General: Intubated, is awake, in no acute distress HEENT:? Pupils equal and reactive, sclerae is care, ETT in place Neck:? Supple Respiratory:? Coarse breath sounds at bases bilaterally, right > left. No wheezing this morning, otherwise adequate air entry Cardiac:? S1-S2 normal, regular rate and rhythm Abdomen:? Soft, nontender, nondistended, obese, normoactive bowel sounds Extremities:? No edema, palpable pedal pulse Neuro:? Patient is intubated, off sedation, follows simple commands in all extremities and nods to questions Skin:? No skin lesions noted Psych:? Unable to assess at this time Objective Data Vital Signs Vital Signs: Vital Signs - 24 hr 08/05/24 13:41 08/05/24 13:41 08/05/24 14:00 Temperature Pulse Rate 88 88 85 Respiratory Rate 24 H Blood Pressure Pulse Oximetry 95 Oxygen Delivery Mechanical Ventilation Fraction of Inspired Oxygen 40 08/05/24 14:00 08/05/24 14:23 08/05/24 16:00 Temperature 99.6 F Pulse Rate 86 98 Respiratory Rate 19 Blood Pressure 151/73 H Pulse Oximetry 94 Oxygen Delivery Fraction of Inspired Oxygen 08/05/24 16:00 08/05/24 16:00 08/05/24 16:00 Temperature 99.4 F Pulse Rate 93 Respiratory Rate 20 Blood Pressure 152/67 H Pulse Oximetry 96 95 Oxygen Delivery Mechanical Ventilation Fraction of Inspired Oxygen 40 40 08/05/24 16:42 08/05/24 18:00 08/05/24 18:00 Temperature Pulse Rate 100 93 93 Respiratory Rate 17 Blood Pressure 126/68 Pulse Oximetry 95 95 Oxygen Delivery Mechanical Ventilation Fraction of Inspired Oxygen 40 08/05/24 20:00 08/05/24 20:00 08/05/24 20:00 Temperature Pulse Rate 99 Respiratory Rate Blood Pressure Pulse Oximetry Oxygen Delivery Mechanical Ventilation Fraction of Inspired Oxygen 40 40 08/05/24 20:01 08/05/24 20:28 08/05/24 20:28 Temperature 100.9 F H Pulse Rate 100 97 91 Respiratory Rate 20 16 Blood Pressure 139/70 Pulse Oximetry 92 93 Oxygen Delivery Mechanical Ventilation Fraction of Inspired Oxygen 40 08/05/24 20:35 08/05/24 20:48 08/05/24 21:01 Temperature Pulse Rate 100 102 H 95 Respiratory Rate 16 19 17 Blood Pressure 127/61 Pulse Oximetry 95 Oxygen Delivery Fraction of Inspired Oxygen 08/05/24 22:00 08/05/24 22:01 08/05/24 23:14 Temperature Pulse Rate 98 98 86 Respiratory Rate 21 H Blood Pressure 126/65 Pulse Oximetry 96 94 Oxygen Delivery Mechanical Ventilation Fraction of Inspired Oxygen 40 08/06/24 00:00 08/06/24 00:00 08/06/24 00:00 Temperature Pulse Rate 83 Respiratory Rate Blood Pressure Pulse Oximetry Oxygen Delivery Mechanical Ventilation Fraction of Inspired Oxygen 40 40 08/06/24 00:00 08/06/24 02:00 08/06/24 02:00 Temperature 99.2 F Pulse Rate 83 85 85 Respiratory Rate 16 16 Blood Pressure 123/64 128/61 Pulse Oximetry 94 96 Oxygen Delivery Fraction of Inspired Oxygen 08/06/24 02:06 08/06/24 02:06 08/06/24 02:17 Temperature Pulse Rate 89 89 85 Respiratory Rate 16 16 Blood Pressure Pulse Oximetry 95 Oxygen Delivery Mechanical Ventilation Fraction of Inspired Oxygen 40 08/06/24 04:00 08/06/24 04:00 08/06/24 04:00 Temperature Pulse Rate 87 Respiratory Rate Blood Pressure Pulse Oximetry Oxygen Delivery Mechanical Ventilation Fraction of Inspired Oxygen 40 40 08/06/24 04:00 08/06/24 05:27 08/06/24 06:00 Temperature 98.8 F Pulse Rate 87 90 85 Respiratory Rate 19 Blood Pressure 127/59 L Pulse Oximetry 98 92 Oxygen Delivery Mechanical Ventilation Fraction of Inspired Oxygen 40 08/06/24 06:00 08/06/24 08:00 08/06/24 08:00 Temperature 98.9 F Pulse Rate 85 81 Respiratory Rate 16 16 Blood Pressure 111/51 L 104/57 L Pulse Oximetry 93 94 Oxygen Delivery Fraction of Inspired Oxygen 40 08/06/24 08:00 08/06/24 08:00 08/06/24 08:23 Temperature Pulse Rate 80 79 Respiratory Rate Blood Pressure Pulse Oximetry 90 95 Oxygen Delivery Mechanical Ventilation Mechanical Ventilation Fraction of Inspired Oxygen 40 40 08/06/24 08:24 08/06/24 08:42 08/06/24 10:00 Temperature Pulse Rate 79 82 96 Respiratory Rate 25 H 25 H 23 H Blood Pressure 119/59 L Pulse Oximetry 90 Oxygen Delivery Fraction of Inspired Oxygen 08/06/24 10:00 08/06/24 10:55 08/06/24 12:00 Temperature 98.9 F Pulse Rate 96 97 101 H Respiratory Rate 27 H Blood Pressure 140/58 L Pulse Oximetry 92 92 Oxygen Delivery Mechanical Ventilation Fraction of Inspired Oxygen 40 08/06/24 12:00 08/06/24 12:00 08/06/24 12:00 Temperature Pulse Rate 102 H Respiratory Rate Blood Pressure Pulse Oximetry 92 Oxygen Delivery Mechanical Ventilation Fraction of Inspired Oxygen 40 40 Intake/Output Intake/Output: Intake & Output 08/03/24 08/04/24 08/05/24 08/06/24 23:59 23:59 23:59 23:59 Intake Total 3304.4 2293.9 1429.4 682 Output Total 6330 3175 3750 875 [facility] -495.6 -881.1 -2320.6 -193 Meds/Results Medications: Active Medications Generic Name Dose Route Start Last Admin Trade Name Freq PRN Reason Stop Dose Admin Acetaminophen 650 mg 08/05/24 23:28 08/06/24 08:47 Acetaminophen Elixir 325 Mg/10.15 Ml Udc PO 650 mg Q6H PRN Administration Mild Pain (1-3) or Fever Acetylcysteine 200 mg 08/01/24 08:00 08/06/24 08:19 Acetylcysteine 20% Inhal Soln 800 Mg/4 Ml Vial INHALATION 200 mg Q6HRT RAISSA Administration Albuterol/Ipratropium 3 ml 08/01/24 14:00 08/06/24 08:19 Ipratropium 0.5 Mg/Albuterol Sulfate 2.5 Mg Ampul.Neb 3 Ml INHALATION 3 ml Q6HRT RAISSA Administration Atorvastatin Calcium 10 mg 07/31/24 21:00 08/05/24 21:32 Atorvastatin 10 Mg Tablet PO 10 mg QHS RAISSA Administration Bisacodyl 10 mg 07/30/24 20:15 Bisacodyl 10 Mg Suppository RECTAL ONCE PRN Constipation Dextrose 12.5 gm 07/31/24 00:46 Dextrose 50% 25 Gm/50 Ml Syringe IV PUSH PRN PRN Hypoglycemia Protocol Dornase Gerald 2.5 mg 08/01/24 08:00 08/06/24 08:19 Dornase Gerald Inh Soln 1 Mg/Ml 2.5 Ml Amp INHALATION 08/06/24 23:59 2.5 mg Q12HRT RAISSA Administration Enoxaparin Sodium 40 mg 07/31/24 09:00 08/06/24 08:45 Enoxaparin 40 Mg/0.4 Ml Syringe SUB-Q 40 mg DAILY RAISSA Administration Fluticasone/Umeclidinium/Vilanterol 1 puff 07/31/24 09:45 08/05/24 07:45 Fluticasone/Umeclidin/Vilanter 100-62.5-25 Mcg Ellipta INHALATION Not Given DAILYRT RAISSA Glucagon 1 mg 07/31/24 00:46 Glucagon For Inj 1 Mg Vial IM PRN PRN Hypoglycemia Protocol Glucose 15 gm 07/31/24 00:46 Glucose Oral Gel 15 Gm Of Glucse In 37.5 Gm Tube PO PRN PRN Hypoglycemia Protocol Hydralazine HCl 10 mg 08/05/24 07:42 08/05/24 09:06 Hydralazine Hcl 20 Mg/Ml Vial IV PUSH 10 mg Q4H PRN Administration Blood Pressure - High Ceftriaxone Sodium 2 gm in 100 mls @ 200 mls/hr 07/31/24 00:00 08/06/24 01:06 Rocephin 2 Gm/Ns 100 Ml IVPB Infused Q24H RAISSA Infusion Dextrose 1,000 mls @ 100 mls/hr 07/31/24 00:46 Dextrose 5% 1,000 Ml IVPB PRN PRN Hypoglycemia Protocol Fentanyl Citrate 2,500 mcg in 250 mls @ 0 mls/hr 07/31/24 01:55 08/04/24 21:57 Fentanyl 2,500 Mcg/Ns 250 Ml IV CONT Not Given .Q0M [facility] Protocol Propofol 100 mls @ 0 mls/hr 08/01/24 07:55 08/05/24 12:56 Diprivan IV CONT Not Given .Q0M [facility] Protocol Insulin Aspart 3 - 6 units 07/31/24 06:00 08/06/24 11:32 Insulin Aspart (*Bkc) 100 Units/Ml SUB-Q Not Given Q6HR [facility] Protocol Lisinopril 10 mg 08/05/24 12:20 08/06/24 08:45 Lisinopril 10 Mg Tablet PO 10 mg DAILY RAISSA Administration Magnesium Hydroxide 30 ml 07/30/24 20:15 Magnesium Hydroxide Susp 30 Ml Udc FEED TUBE DAILY PRN Constipation Methylprednisolone Sodium Succinate 20 mg 08/06/24 09:00 08/06/24 08:46 Methylprednisolone Sod Succ 40 Mg Vial IV PUSH 08/07/24 09:01 20 mg DAILY RAISSA Administration Midazolam HCl 2 mg 07/30/24 20:27 07/30/24 21:14 Midazolam Hcl (*Crx) 2 Mg/2 Ml Vial IV PUSH 2 mg ONCE PRN Administration Agitation Multi-Ingred Cream/Lotion/Oil/Oint 1 applic 07/31/24 09:00 08/06/24 08:48 Mineral Oil/White Petrolatum Ointment EACH EYE 1 applic Q12HR RAISSA Administration Multi-Ingred Cream/Lotion/Oil/Oint 1 applic 08/05/24 01:47 08/05/24 06:51 Eucerin Cream 120 Gm Jar TOPICAL 1 applic PRN PRN Administration dry skin Pantoprazole Sodium 40 mg 07/31/24 09:00 08/06/24 08:47 Pantoprazole Sodium Iv 40 Mg Vial IV PUSH 40 mg DAILY RAISSA Administration Polyethylene Glycol 17 gm 08/06/24 09:00 08/06/24 08:47 Polyethylene Glycol 3350 17 Gm Powd.Pack PO 17 gm QAM RAISSA Administration Senna/Docusate Sodium 1 tab 08/02/24 21:00 08/05/24 21:32 Senna/Docusate Sodium Tablet PO 1 tab HS RAISSA Administration Sodium Chloride 10 ml 08/02/24 14:00 08/06/24 05:15 Central Line Flush IV PUSH 10 ml Q8HR RAISSA Administration Sodium Chloride 20 ml 08/02/24 09:06 Central Line Flush IV PUSH PRN PRN after blood draws Radiology Results: ITS Impressions Chest CTA 07/30/24 16:19 IMPRESSION: Right lung atelectasis including particularly upper and lower lobes; which may be due to malignant or radiation stricture of the right bronchial airways. Consider PET/CT correlation No pulmonary embolism Abdomen X-Ray 07/31/24 05:45 IMPRESSION: 1. Nonobstructive bowel gas pattern. Venous Doppler Study 08/04/24 10:39 IMPRESSION: 1. Patent bilateral upper extremity veins. No evidence of venous thrombosis. Chest CT 08/04/24 11:39 IMPRESSION: 1. Mild groundglass opacities in the lower lobes, consistent with pneumonia. 2. 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 Persistent complete collapse of right middle lobe. 3. Tracheobronchomalacia. 4. Small pleural effusions. 5. Mild emphysema. Chest X-Ray 08/05/24 10:09 IMPRESSION: 1. Persistent right parahilar and right upper lobe paramediastinal opacities consistent with radiation fibrosis. 2. Unchanged small right pleural effusion with bibasilar opacities which could represent atelectasis or pneumonia. 2. Cardiomegaly. Abdomen Ultrasound 08/05/24 12:19 IMPRESSION: 1. Cholelithiasis within the otherwise normal-appearing gallbladder. Labs Labs: Laboratory Results - last 24 hr 12/28/24 12/29/24 12/29/24 16:57 00:30 05:01 WBC RBC Hgb Hct MCV MCH MCHC RDW Plt Count MPV Immature Gran % (Auto) Neut % (Auto) Lymph % (Auto) Hinds % (Auto) Eos % (Auto) Baso % (Auto) Lymph # (Auto) Hinds # (Auto) Eos # (Auto) Baso # (Auto) Abs Immat Gran (auto) Absolute Neuts (auto) Absolute Nucleated RBC Nucleated RBC % Puncture Site Left radial ABG pH 7.421 ABG pCO2 50.6 H ABG pO2 71.8 L ABG PO2/FiO2 Ratio 1.80 ABG HCO3 32.2 H ABG O2 Saturation 94.5 L ABG O2 Content 17.9 ABG Base Excess 6.4 A-a Gradient 155.2 Oxyhemoglobin 92.7 Carboxyhemoglobin 0.9 Methemoglobin 0.1 Reduced Hemoglobin 6.3 H Total Hemoglobin 13.7 O2 Delivery Device Ventilator O2 Liters/Min Not Reportable Minute Volume Not Reportable Vent Rate 16 Vent Mode Cmv FiO2 40 Tidal Volume 480 PEEP 5 Peak Inspir Pressure Not Reportable Pressure Support Not Reportable Sodium Potassium Chloride Carbon Dioxide Anion Gap BUN Creatinine Estim Creat Clear Calc Estimated GFR Glucose POC Capillary Glucose 153 H 134 H Calcium Phosphorus Magnesium Total Bilirubin AST ALT Alkaline Phosphatase Total Protein Albumin 08/06/24 08/06/24 08/06/24 05:10 05:14 11:02 WBC 16.0 H RBC 4.26 Hgb 13.0 Hct 42.3 MCV 99.3 MCH 30.5 MCHC 30.7 L RDW 14.5 Plt Count 159 MPV 10.5 H Immature Gran % (Auto) 7.2 H Neut % (Auto) 74.9 H Lymph % (Auto) 11.8 L Hinds % (Auto) 5.1 Eos % (Auto) 0.2 Baso % (Auto) 0.8 Lymph # (Auto) 1.88 Hinds # (Auto) 0.8 H Eos # (Auto) 0.0 Baso # (Auto) 0.1 Abs Immat Gran (auto) 1.15 H Absolute Neuts (auto) 12.0 H Absolute Nucleated RBC 0.020 H Nucleated RBC % 0.1 Puncture Site ABG pH ABG pCO2 ABG pO2 ABG PO2/FiO2 Ratio ABG HCO3 ABG O2 Saturation ABG O2 Content ABG Base Excess A-a Gradient Oxyhemoglobin Carboxyhemoglobin Methemoglobin Reduced Hemoglobin Total Hemoglobin O2 Delivery Device O2 Liters/Min Minute Volume Vent Rate Vent Mode FiO2 Tidal Volume PEEP Peak Inspir Pressure Pressure Support Sodium 140 Potassium 4.2 Chloride 101 Carbon Dioxide > 40 H Anion Gap BUN 51 H Creatinine 0.60 L Estim Creat Clear Calc 80 Estimated GFR > 60 Glucose 117 H POC Capillary Glucose 118 H 147 H Calcium 8.9 Phosphorus 4.0 Magnesium 2.2 Total Bilirubin 0.9 AST 85 H ALT 219 H Alkaline Phosphatase 89 Total Protein 6.0 L Albumin 2.9 L 08/06/24 12:27 WBC RBC Hgb Hct MCV MCH MCHC RDW Plt Count MPV Immature Gran % (Auto) Neut % (Auto) Lymph % (Auto) Hinds % (Auto) Eos % (Auto) Baso % (Auto) Lymph # (Auto) Hinds # (Auto) Eos # (Auto) Baso # (Auto) Abs Immat Gran (auto) Absolute Neuts (auto) Absolute Nucleated RBC Nucleated RBC % Puncture Site Right radial ABG pH 7.444 ABG pCO2 52.5 H ABG pO2 76.0 L ABG PO2/FiO2 Ratio 1.90 ABG HCO3 35.2 H ABG O2 Saturation 95.5 ABG O2 Content 19.1 ABG Base Excess 9.3 A-a Gradient 148.8 Oxyhemoglobin 94.0 Carboxyhemoglobin Methemoglobin Reduced Hemoglobin Total Hemoglobin 14.4 O2 Delivery Device Ventilator O2 Liters/Min Not Reportable Minute Volume Not Reportable Vent Rate Not Reportable Vent Mode Spontaneous FiO2 40 Tidal Volume Not Reportable PEEP 5 Peak Inspir Pressure Not Reportable Pressure Support 10 Sodium Potassium Chloride Carbon Dioxide Anion Gap BUN Creatinine Estim Creat Clear Calc Estimated GFR Glucose POC Capillary Glucose Calcium Phosphorus Magnesium Total Bilirubin AST ALT Alkaline Phosphatase Total Protein Albumin Quality VTE Prophylaxis VTE prophylaxis: pharmacologic ordered
--- OUTSIDE RECORDS SUMMARY | 2024-08-06 17:32 | XMS_ITS | Data Portability ---
Author Organization [facility], Main Office Address [address] [place] [address] Care Team Providers Care Pre Billing Specialist Name Role Phone PAULA SANTILLAN Primary Care Provider PAULA SANTILLAN Referring Provider [phone] SANDI WASHINGTON Primary Care Provider Assessment Encounter Date Assessment Date Assessment LastModified by Organization Details LastModified Time 01/12/2024 01/12/2024 Flu shot: declines COVID vaccines: 09/2017, 10/2020 Tdap: believes it is up to date Pneumococcal: PCV13 (02/12/2017), PPV23 (01/11/2018) Shingrix: recommended Mammogram: done Would like to be done with colonoscopies. [email or web address] Not available 01/12/2024 15:41:48 Plan of Treatment Reminders Order Date Submit Date Provider Last Modified By Organization Details Last Modified Time Details Appointments None recorded. Lab CBC w/ auto diff [address] (Lab), [address] [place], [address], 4 08:23:58 CMP, serum or plasma [address] (Lab), [address] [place], [address], 4 08:23:58 TSH, serum, reflex free T4 [address] (Lab), [address] [place], [address], 08:23:58 lipids, total, serum 2023 [facility] [address] [place], [address], 08:23:58 Referral physical therapist referral 2023 [email or web address] [facility], [address], [address], [place], [address], 09:05:50 Procedures None recorded. Surgeries None recorded. Imaging None recorded. Medication Orders furosemide 40 mg tablet 2023 [place] [facility] #[id number], [address] [place] [address], [id number], 4 16:04:55 Breztri Aerosphere 160 mcg-9mcg-4. 8mcg/actuat ion HFA aerosol inhaler 2023 [place] [facility] #[id number], [address] [place] [address], [id number], 4 11:28:02 azithromyci n 250 mg tablet 2023 [place] [id number], [address] [place] [address], [id number], 4 14:27:13 triamcinolo ne acetonide 40 mg/mL suspension for injection 2023 Not available 14:41:15 Medrol (Neymar) 4 mg tablets in a dose pack 2023 [place] [facility] #[id number], [address] [place] [address], [id number], 4 14:37:51 Myrbetriq 50 mg tablet,exte nded release 2023 024 [facility] #[id number], [address] [facility], [place], [place], [id number], 14:37:42 Patient TargetsNo targets recorded. Patient InstructionsNo instructions recorded. Reason for Referral Physical Therapist Referral for Impairment of balance Referring Physician: Sandi Washington, Family Medicine, Encounter Date: 01/12/2024 Results Created Date Observation Date Name Description Value Unit Range Abnormal Flag Note LastModifiedBy Organization Detail LastModifiedTime 05/09/2005/09/2023 CT, brain , w/o contr ast No observ ation record ed. [address] [facility], [place], [address], 05/12/2023 07:37:32 05/09/2005/09/2023 CT, face, w/o contr ast No observ ation record ed. [address] [facility], [place], [address], 05/12/2023 07:38:16 05/09/2005/09/2023 XR, wrist No observ ation record ed. [address] [facility], [place], [address], 05/12/2023 07:38:40 07/13/20 23 07/09/2023 imagi ng/di agnos tic resul t No observ ation record ed. [address] [facility], [place], [address], 07/14/2023 15:45:10 12/01/19 24 12/01/2023 US, doppl er echoc ardio gram No observ ation record ed. [email or web address] [facility] [address], [place], [address], 02/01/2024 11:11:24 12/01/19 24 12/01/2023 US, doppl er echoc ardio gram No observ ation record ed. [email or web address] [facility] [address], [place], [address], 12/02/2023 09:32:44 12/08/19 24 12/01/2023 sleep study , diagn ostic (PROC ) No observ ation record ed. [email or web address] [facility] [address], [place], [address], 02/01/2024 11:13:31 04/07/20 24 rhyth m strip , EKG* No observ ation record ed. [email or web address] [facility] Referral Fax Line [address], [place], [address], 04/11/2024 08:51:00 Result Notes None recorded. Problems Name Problem SNOMED Code Status Onset Date Resolution Date Notes Provider Name and Address Organization Details Recorded Time Impacted cerumen of bilateral ears 42209381664 39849 Completed 201804/13/2024 JOSEPH Duarte [address], [address], [place], [address] , [employer] 4 11:14:14 Excessive cerumen in ear canal 152794704 Completed 04/13/2024 JOSEPH Duarte [address], [address], [place], [address] , [employer] 4 11:14:18 Chronic obstructi ve pulmonary disease 65984702 Active Not Available [employer] 3 08:09:02 Acute sinusitis 23565945 Completed 04/13/2024 JOSEPH Duarte [address], [address], [place], [address] , [employer] 4 11:13:04 On examinati on - blackhead s present Completed 201804/13/2024 JOSEPH Duarte [address], [address], [place], [address] , [facility] 4 11:14:05 Asthma 408567177 Active Not Available [facility] 3 08:09:02 Periphera l venous insuffici ency 35698835 Completed 04/13/2024 JOSEPH Duarte [address], [address], [place], [address] , [facility] 4 11:14:03 Small cell carcinoma of lung 403175966 Active 2016 7 Not Available [facility] 3 08:09:02 Edema 522265101 Active 2019 Not Available [facility] 3 08:09:02 Shoulder joint pain 579651177 Active 2016 Not Available [facility] 3 08:09:02 Dehydrati on 40812479 Completed 04/13/2024 JOSEPH Duarte [address], [address], [place], [address] , [facility] 4 11:14:20 Malignant tumor of lung 685443337 Active 2018 Not Available [facility] 3 08:09:02 Sinusitis 41584835 Completed 04/13/2024 JOSEPH Duarte [address], [address], [place], [address] , [facility] 4 11:13:51 Hypoxia 591815448 Active 2018 Not Available [facility] 3 08:09:03 Umbilical hernia 824394200 Active 2017 Not Available [facility] 3 08:09:03 Diverticu lar disease of colon 558152034 Active 2018 Not Available [facility] 3 08:09:03 Rosacea 101243250 Active Not Available [facility] 3 08:09:03 Vertigo 485881692 Active 2018 Not Available [facility] 3 08:09:03 Periphera l vascular disease 908609823 Active 2021 Not Available [facility] 3 08:09:03 Body mass index 40+ - severely obese 746791815 Active 2018 Not Available [facility] 3 08:09:03 Seasonal allergy 903311742 Completed 04/13/2024 JOSEPH Duarte [address], [address], [place], [address] , [employer] [facility] [employer] 4 11:24:22 Cough 65125817 Completed 04/13/[address], [place], [address] , [employer] 4 11:14:24 Upper respirato ry infection 54639875 Completed 04/13/2024 JOSEPH Duarte [address], [address], [place], [address] , [employer] 4 11:13:47 Hyperlipi demia 95723547 Active Not Available [facility] 3 08:09:04 Chronic bronchiti s 59607781 Active 2018 Not Available [facility] 3 08:09:04 Rhinitis 08826751 Completed 04/13/2024 JOSEPH Duarte [address], [address], [place], [address] , [employer] [facility] 4 11:13:45 Pulmonary hypertens ion 66180122 Active 2018 Not Available [facility] 3 08:09:04 Posterior rhinorrhe a 49631954 Completed 04/13/[address], [address], [place], [address] , [employer] [facility] 4 11:14:00 Impaired mobility 19128847 Active 2021 Not Available [facility] 3 08:09:04 Pulmonary emphysema 88124730 Active 2016 Not Available [facility] 3 08:09:05 Impairmen t of balance 635206868 Active 2023 JOSEPH Duarte [address], [address], [place], [address] , [facility] [employer] [facility] [employer] [facility] 4 15:54:42 Acute exacerbat ion of chronic obstructi ve pulmonary disease 671202528 Active 2023 JOSEPH Duarte [address], [address], [place], [address] , [facility] [employer] [facility] [employer] [facility] 4 14:25:52 Overactiv e urinary bladder 294681018 Active 2023 JOSEPH Duarte [address], [address], [place], [address] , [employer] [facility] [employer] [facility] 4 14:37:11 Verruca palmaris 18707476 Active 2023 JOSEPH Duarte [address], [address], [place], [address] , [employer] [facility] [employer] [facility] 4 14:39:02 Problem Notes None recorded. Procedures Surgical History Date Name Laterality Status Provider Name and Address Organization Details Recorded Time delivery completed Not Available [facility] 10/07/2022 08:06:10 Imaging Results Imaging Date Name Status LastModified by Organization Details LastModified Time 05/09/2023 CT, brain, w/o contrast completed [address], [address], 05/12/2023 07:37:32 05/09/2023 CT, face, w/o contrast completed [address], [address], 05/12/2023 07:38:16 05/09/2023 XR, wrist completed [address], [address], 05/12/2023 07:38:40 07/09/2023 imaging/diagnostic result completed [address], [place], [address], 07/14/2023 15:45:10 12/01/2023 US, doppler echocardiogram completed [email or web address] [facility] [address], [place], [address], 02/01/2024 11:11:24 12/01/2023 US, doppler echocardiogram completed [email or web address] [facility] [address] [facility] [address], [place], [address], 12/02/2023 09:32:44 12/01/2023 sleep study, diagnostic (PROC) completed [email or web address] [facility] [address], [place], [address], 02/01/2024 11:13:31 04/07/2024 rhythm strip, EKG* completed [facility] Referral Fax Line [address], [place], [address], 04/11/2024 08:51:00 Procedure Notes None recorded. Medical Equipment None Reported. Allergies Allergen ID Allergen Name Allergen Category Reaction Reaction Severity Criticality Documentation Date Start Date Code Code System Note Provider Name and Address Organization Details Recorded Time 31772 Crestor medicatio n other Not available Not available 10/07/2022 90786 4 RxNorm incre ased liver enzym es Not Available [facility] 08:13:00 Medications Name Sig Start Date Stop Date Status Note LastModified by Organization Details LastModified Time Prescript ion - Renewal 01/11 completed Not Available Not Available Not Available amoxicill in 500 mg capsule active Not Available Not Available Not Available furosemid e 40 mg tablet TAKE 1 TABLET BY MOUTH EVERY DAY DIRECTED active Not Available Not Available No t Available prednison e 10 mg tablet Take by oral route. 02/12 completed Not Available Not Available Not Available Depo-Medr ol 40 mg/mL suspensio n for injection active [facility]# [id number] 63-01 Not Available Not Available Not Available albuterol sulfate 2.5 mg/3 mL (0.083 %) solution for nebulizat ion Inhale 3 mL 4 times a day by nebuliza tion route for 30 days. active Not Available Not Available No t Available guaifenes in ER 600 mg tablet,ex tended release Take 1 tablet every 12 hours by oral route as directed for 30 days. 02/03 completed Not Available Not Available Not Available azithromy nemesio 250 mg tablet TAKE 2 TABLETS (500 MG) BY ORAL ROUTE ONCE DAILY FOR 1 DAY THEN 1 TABLET (250 MG) BY ORAL ROUTE ONCE DAILY FOR 4 DAYS active Not Available Not Available No t Available fluconazo le 150 mg tablet 02/12 completed Not Available Not Available Not Available valacyclo vir 1 gram tablet 01/11 completed Not Available Not Available Not Available hydrocodo ne 5 mg-acetam inophen 325 mg tablet TAKE 1 TABLET BY MOUTH EVERY 4 TO 6 HOURS NEEDED FOR PAIN active Not Available Not Available No t Available Celestone Soluspan 6 mg/mL suspensio n for injection active [facility]# [id number] 66-05 Not Available Not Available Not Available ondansetr on HCl 8 mg tablet 01/11 completed Not Available Not Available Not Available prednison e 20 mg tablet 2 tabs po for 4 days, then 1 tab po daily for 4 days. active Not Available Not Available No t Available simvastat in 10 mg tablet active Not Available Not Available Not Available prednison e 5 mg tablet TK 8 TS PO D FOR 3 DAYS AND DECREASE BY 5 MG Q 3 DAYS 01/11 completed Not Available Not Available Not Available cyanocoba sami (vit B-12) 1,000 mcg tablet active Internal note: Pt tollerat ed wellExte rnal note: [facility]# [id number] Not Available Not Available Not Available prochlorp erazine maleate 10 mg tablet 01/11 completed Not Available Not Available Not Available tramadol 50 mg tablet Take 1 tablet bid prn knee pain active Not Available Not Available No t Available prednison e 10 mg tablets in a dose pack Take by oral route. day 1: 60 mg, day2: 50mg, day3:40m g, day4: 30mg, day5:20m g, day6:10 then finished active Not Available Not Available No t Available oxycodone -acetamin ophen 5 mg-325 mg tablet active Not Available Not Available Not Available potassium chloride 20 mEq oral packet 01/11 completed Not Available Not Available Not Available amoxicill in 875 mg tablet TAKE 1 TABLET BY MOUTH IMMEDIAT RONAK THEN TAKE 1 TABLET BY MOUTH TWICE DAILY UNTIL GONE 07/27 completed Not Available Not Available Not Available potassium chloride ER 20 mEq tablet,ex tended release(p art/cryst ) TAKE 1 TABLET BY MOUTH TWICE DAILY active Not Available Not Available No t Available prednisol one acetate 1 % eye drops,yehuda pension SHAKE LIQUID AND INSTILL 1 DROP IN LEFT EYE THREE TIMES DAILY AFTER SURGERY DIRECTED 01/11 completed Not Available Not Available Not Available lorazepam 0.5 mg tablet 01/11 completed Not Available Not Available Not Available metronida zole 0.75 % lotion APPLY EXTERNAL LY TO THE AFFECTED AREA EVERY DAY active Not Available Not Available No t Available benzonata te 100 mg capsule Take 1 capsule every 4-6 hours by oral route as directed for 15 days. active Not Available Not Available No t Available triamcino lone acetonide 40 mg/mL suspensio n for injection Take 2 mL every day by injectio n route as directed for 1 day. 2023 active Not Available Not Available Not Avai lable simvastat in 20 mg tablet TAKE 1 TABLET BY MOUTH AT BEDTIME active Not Available Not Available No t Available Advair Diskus 250 mcg-50 mcg/dose powder for inhalatio n INHALE 1 PUFF BY MOUTH TWICE DAILY. RINSE MOUTH AFTER USE 07/27 completed Not Available Not Available Not Available Combivent 18 mcg-103 mcg/actua tion aerosol inhaler Inhale 1 puff 4 times a day by inhalati on route for 25 days. active Not Available Not Available No t Available montel[address] st 10 mg tablet TAKE 1 TABLET BY MOUTH EVERY EVENING active Not Available Not Available No t Available levofloxa nemesio 500 mg tablet 02/12 completed Not Available Not Available Not Available levofloxa nemesio 750 mg tablet TK 1 T PO QD 07/27 completed Not Available Not Available Not Available methylpre dnisolone 4 mg tablets in a dose pack Take by oral route as directed active Not Available Not Available No t Available albuterol sulfate HFA 90 mcg/actua tion aerosol inhaler INHALE 2 PUFFS BY MOUTH EVERY 4 HOURS NEEDED 01/11 completed Not Available Not Available Not Available loratadin e 10 mg tablet TAKE 1 TABLET BY MOUTH DAILY IN THE MORNING active Not Available Not Available No t Available amoxicill in 875 mg-potass ium clavulana te 125 mg tablet TK 1 T PO Q 12 H FOR 10 DAYS 01/17 completed Not Available Not Available Not Available chlorhexi dine gluconate 0.12 % mouthwash active Not Available Not Available No t Available potassium OTC tablet once daily 04/23 completed Not Available Not Available Not Available multivita min Take one tablet daily 04/23 completed Not Available Not Available Not Available Mucinex 1,200 mg tablet, extended release Take 1 tablet as needed by oral route as directed . 03/04 completed Not Available Not Available Not Available [employer] 1.5 billion cell capsule Take 1 capsule every day by oral route in the morning for 30 days. 12/23 completed Not Available Not Available Not Available [employer] Take one tablet daily 04/23 completed Not Available Not Available Not Available Combivent Respimat 20 mcg-100 mcg/actua tion solution for inhalatio n INL 1 PUFF PO QID 07/27 completed Not Available Not Available Not Available Myrbetriq 50 mg tablet,ex tended release Take 1 tablet by mouth daily active Not Available Not Available No t Available Delsym Cough-Nicolette st Congestio n DM 5 mg-100 mg/5 mL oral liquid Take 10 mL every 6 hours by oral route with meals for 14 days. 12/13 completed Not Available Not Available Not Available Flonase Allergy Relief 50 mcg/actua tion nasal spray,yehuda pension [place] 1 spray every day by intranas al route. 01/11 completed Not Available Not Available Not Available Stiolto Respimat 2.5 mcg-2.5 mcg/actua tion solution for inhalatio n Inhale 2 puffs by inhalati on route for 30 days. active Not Available Not Available No t Available Trelegy Ellipta 100 mcg-62.5 mcg-25 mcg powder for inhalatio n INHALE 1 PUFF BY MOUTH EVERY DAY active Not Available Not Available No t Available Trelegy Ellipta 10/30 completed Not Available Not Available Not Available [employer] Aerospher e 160 mcg-9mcg- 4.8mcg/ac tuation HFA aerosol inhaler INHALE 2 PUFFS BY MOUTH TWICE DAILY DIRECTED active Not Available Not Available No t Available Paxlovid 300 mg (150 mg x 2)-100 mg tablets in a dose pack TK 2 NIRMATRE LVIR TS AND 1 RITONAVI R T TOGETHER PO BID FOR 5 DAYS 01/11 completed Not Available Not Available Not Available Vitals Date Recorded Body mass index (BMI) Body height Oxygen saturation Oxygen saturation in Arterial blood by Pulse oximetry Heart rate Body temperature Body weight Systolic blood pressure Diastolic blood pressure Provider Name and Address Organization Details Last Updated DateTime 2 45 kg/m2 157.48 cm 92 % 92 % 89 /min 97.7 [degF] 301523. 72 g 124 mm[Hg] 82 mm[Hg] Not Available [facility] 3 08:08:07 Date Recorded Body mass index (BMI) Body height Oxygen saturation Oxygen saturation in Arterial blood by Pulse oximetry Heart rate Body temperature Body weight Systolic blood pressure Diastolic blood pressure Provider Name and Address Organization Details Last Updated DateTime 3 46.3 kg/m2 157.48 cm 95 % 95 % 102 /min 97.3 [degF] 907073. 87 g 124 mm[Hg] 70 mm[Hg] Not Available [facility] 3 08:08:07 Date Recorded Body height Body mass index (BMI) Body weight Body temperature Heart rate Oxygen saturation Oxygen saturation in Arterial blood by Pulse oximetry Respiratory rate Systolic blood pressure Diastolic blood pressure Provider Name and Address Organization Details Last Updated DateTime 4 154.94 cm 44.4 kg/m2 142962. 61 g 96.3 [degF] 106 /min 97 % 97 % 28 /min 152 mm[Hg] 76 mm[Hg] Paula Huber RN [place] [facility] [employer] [facility] 4 15:03:08 Date Recorded Body height Body mass index (BMI) Body weight Body temperature Heart rate Respiratory rate Oxygen saturation Oxygen saturation in Arterial blood by Pulse oximetry Provider Name and Address Organization Details Last Updated DateTime 4 154.94 cm 44.6 kg/m2 519373. 85 g 97.3 [degF] 106 /min 20 /min 90 % 90 % Paula Huber RN [facility] [employer] [facility] 4 11:04:48 Date Recorded Systolic blood pressure Diastolic blood pressure Provider Name and Address Organization Details Last Updated DateTime 04/13/2024 126 mm[Hg] 72 mm[Hg] Sandi Michelle, [employer] PROFESSOR [address] [facility] [facility] [address], [place], [address], [facility] [employer] [facility] 04/13/2024 11:30:50 Date Recorded Body height Body mass index (BMI) Body weight Body temperature Respiratory rate Heart rate Oxygen saturation Oxygen saturation in Arterial blood by Pulse oximetry Systolic blood pressure Diastolic blood pressure Provider Name and Address Organization Details Last Updated DateTime 154.94 cm 45 kg/m2 571682. 08 g 98.1 [degF] 40 /min 130 /min 81 % 81 % 150 mm[Hg] 78 mm[Hg] Paula Huber RN [facility] [employer] [facility] 14:18:35 Social History Question Answer Notes LastModified by Organization Details LastModified Time Tobacco Smoking Status Former Smoker Not Available [facility] 10/07/2022 08:06:02 Do You Have An Advance Directive? Yes [email or web address] Information not available 01/12/2024 What Is Your Level Of Alcohol Consumption? None MIGRATION.0301 [id number] Information not available 10/07/2022 Are You Blind Or Do You Have Difficulty Seeing? Yes Cataracts Information not available 01/12/2024 Is Blood Transfusion Acceptable In An Emergency? Yes Information not available 01/12/2024 What Is Your Level Of Caffeine Consumption? Moderate MIGRATION.[id number] [id number] Information not available 10/07/2022 What Is Your Code Status? Full Code Not If Brain Information not available 01/12/2024 In The 14 Days Before Symptom Onset, Have You Had Close Contact With A Laboratory-conf irmed COVID-19 While That Case Was Ill? No MIGRATION.0301 [id number] Information not available 10/07/2022 In The 14 Days Before Symptom Onset, Have You Had Close Contact With A Person Who Is Under Investigation For COVID-19 While That Person Was Ill? No MIGRATION.0301 [id number] Information not available 10/07/2022 Are You Deaf Or Do You Have Serious Difficulty Hearing? No MIGRATION.0301 [id number] Information not available 10/07/2022 What Type Of Diet Are You Following? REGULAR Watching Calories MIGRATION.0301 [id number] Information not available 10/07/2022 What Is Your Occupation? Retired MIGRATION.0301 [id number] Information not available 10/07/2022 Have There Been Any Changes To Your Family Or Social Situation? No MIGRATION.0301 [id number] Information not available 10/07/2022 When Did You Quit Smoking? 11-15yearssincelas tcigarette MIGRATION.0301 [id number] Information not available 10/07/2022 Do You Use Insect Repellent Routinely? Yes MIGRATION.0301 [id number] Information not available 10/07/2022 Where Do You Live? SingleLevelHouse Information not available 01/12/2024 Do You Have A Medical Power Of Stemhole Borer And Topper? Yes Information not available 01/12/2024 What Was The Date Of Your Most Recent Tobacco Screening? 04/08/2021 MIGRATION.0301 [id number] Information not available 10/07/2022 How Many Children Do You Have? -2 Information not available 01/12/2024 Do You Have Any Pets? No MIGRATION.0301 [id number] Information not available 10/07/2022 What Is Your Relationship Status? MIGRATION.0301 [id number] Information not available 10/07/2022 Do You Use Your Seat Belt Or Car Seat Routinely? Yes MIGRATION.0301 [id number] Information not available 10/07/2022 Do You Have Smoke And Carbon Monoxide Detectors In Your Home? Yes MIGRATION.0301 [id number] Information not available 10/07/2022 At What Age Did You Start Smoking Tobacco? 15 MIGRATION.0301 [id number] Information not available 10/07/2022 Are You Passively Exposed To Smoke? No Information not available 04/13/2024 Are There Any Smokers In Your House? No MIGRATION.0301 [id number] Information not available 10/07/2022 Do You Participate In Social Media? Yes [id number] Information not available 10/07/2022 Do You Feel Stressed (tense, Restless, Nervous, Or Anxious, Or Unable To Sleep At Night)? [id number] Information not available 04/13/2024 Do You Use Any Illicit Or Recreational Drugs? No MIGRATION.[id number] [id number] Information not available 10/07/2022 Has Tobacco Cessation Counseling Been Provided? No MIGRATION.0301 [id number] Information not available 10/07/2022 Have You Recently Traveled Abroad? No MIGRATION.0301 [id number] Information not available 10/07/2022 Do You Have Any Dietary Restrictions? No MIGRATION.0301 [id number] Information not available 10/07/2022 Do You Or Have You Ever Used Any Other Forms Of Tobacco Or Nicotine? No MIGRATION.0301 [id number] Information not available 10/07/2022 Sex: Unknown Functional Status Question Answer Note LastModified by Whisbi Details LastModified Time Do you have difficulty walking or climbing stairs? balance problem Information not available 04/13/2024 Do you have transportation difficulties? No some one helps Information not available 01/12/2024 Are you able to walk? YESASSIST Information not available 04/13/2024 Do you have difficulty doing errands alone? Yes due to balance Information not available 01/12/2024 Are you able to care for yourself? Yes [id number] Information not available 10/07/2022 Do you have difficulty dressing or bathing? No [id number].[id number] Information not available 10/07/2022 What is your exercise level? None [id number] Information not available 10/07/2022 Mental Status Question Answer Note LastModified by [employer] ion Details LastModified Time Do you have difficulty concentrating, remembering or making decisions? No [id number] Information not available 10/07/2022 Family History Nothing Reported. Medical History Condition Response ALLERGIES/HAYFEVER Y OTHER # 1 Y COPD Y HIGH CHOLESTEROL / HYPERLIPIDEMIA Y ASTHMA Y DEPRESSION (INCLUDING POST ) Y HAVE YOU BEEN HOSPITALIZED OR SEEN IN [facility] IN THE PAST YEAR ? Y HYPERTENSION Y CANCER: SPECIFY Y Do you have Advance directive? Y Gynecological History Statement/Question Response If Post Menopausal, Age at Menopause 54 Date of Last Pap Smear Date of Last Colonoscopy Most Recent Mammogram Most Recent Bone Density Obstetrics History GPAL:G 0 P 0 0 0 0 Immunizations Vaccine Type Date Status Note Provider Nam e and Address Organization Details Recorded Time Influenza, split virus, trivalent, PF 4 completed Not Available [facility] 10/07/2022 08:12:54 COVID-19, mRNA, LNP-S, PF, 100 mcg/0.5mL dose or 50 mcg/0.25mL dose 1 completed Not Available [facility] 10/07/2022 08:12:54 COVID-19, mRNA, LNP-S, PF, 100 mcg/0.5mL dose or 50 mcg/0.25mL dose 1 completed Not Available [facility] 10/07/2022 08:12:54 Tdap 1 completed Not Available [facility] 10/07/2022 08:12:55 pneumococcal polysaccharide PPV23 8 completed Not Available [facility] 10/07/2022 08:12:55 Pneumococcal conjugate PCV 13 7 completed Not Available [facility] 10/07/2022 08:12:55 Past Encounters Encounter ID Performer Location Encounter Start Date Encounter Closed Date Diagnosis/Indication Diagnosis SNOMED-CT Code Diagnosis ICD10 Code [id number] [facility] [address] [place] [address] 03/04/2021 00:00:00 03/04/2021 16:57:29 [id number] [facility] [address] [place] [address] 04/08/2021 00:00:00 04/08/2021 11:01:57 [id number] [facility] [address] [place] [address] 05/20/2021 00:00:00 05/20/2021 17:10:[id number] [address] [address] 10/30/2021 00:00:00 10/30/2021 17:16:[id number] [address] [place] [address] 04/08/2022 00:00:00 04/08/2022 12:55:25 [id number] [facility] [address] [place] [address] 09/23/2022 00:00:00 09/23/2022 14:05:24 [id number] [facility] [address] 01/12/2024 14:45:28 01/12/2024 17:48:49 Hyperlipidemia 56339327 E78.5 Edema [id number] R60.9 Impairment of balance 38 9232660 R26.89 [id number] Sandi Campbellraulleigha [facility]_[address] [address] 04/13/2024 10:53:05 04/13/2024 11:38:55 Chronic obstructive pulmonary disease 33823009 J44.9 Pre-surger y evaluation 781861550 Z01.067 [id number] Sandi Washington [facility]_[address] [address] 07/27/2024 14:06:00 07/27/2024 14:43:11 Acute exacerbation of chronic obstructive pulmonary disease 629314105 J44.1 Overactive urinary bladder 564323667 N32.81 Verruca palmaris 2753025 2 B07.0 Health Concerns Section Related Observation LastModified by Organization Detai ls LastModified Time None Recorded Concern Status LastModified by Organization Details LastModified Time None Recorded Advance Directives Directive Y: Payers Encounter Date Sequence Insurance Name Policy Number Policy Esteban Covered Member ID Esteban Member ID Guarantor Name 01/12/2024 1 [place] Gaby Greenberg Setser [id number] Gaby Greenberg Setser 01/12/2024 2 [place] 111 Gaby Greenberg Setser [id number] Gaby Greenberg Setser 04/13/2024 1 [place] Gaby Morgan [id number] Gaby Morgan 04/13/2024 2 [place] 111 Gaby Morgan [id number] Gaby Morgan 07/27/2024 1 [place] Gaby Morgan [id number] Gaby Morgan 07/27/2024 2 [place] 111 Gaby Morgan [id number] Gaby Morgan Notes Date Note Type Note Provider Name and Address Organization Details Recorded Time 01/12/2024 text/html Gaby Morgan i s a 73 year old patient here today to establish care. She was previously under the care of Paula Santillan DNP. Her past medical history is significant for small cell carcinoma of the lung (dx 2017) and COPD. She is currently taking Trelegy 1 puff daily and albuterol neb 2-3 x per day PRN. She has seasonal allergies. She take loratadine 10 mg PO daily and montelukast 10 mg daily. She has a history of hyperlipidemia. This has not been checked in years. She is not interested in annual labs anymore. She has a history of edema. She is taking furosemide 40 mg PO daily. She is also taking potassium chloride ER 20 mEq po BID. She has LOCO cataracts. She has a surgery scheduled. She will need a physical 30 days before surgery. Advised that we will have to schedule She would like discuss weight loss options. She is trying to lose weight through diet. She is unable to exercise due to COPD and lung capacity. She is not a candidate for phentermine due to tachycardia. We will consider a GLP-1 pending labs. She has poor balance. She has seen PT at [facility] for this. She felt that this was ineffective. She would like to see a new physical therapist. She has concerns with dry skin. Recommended scent free high oil lotion like aquaphor covered with cotton sock or sleeve over bedtime. Flu shot: declinesCOVID vaccines: 09/2017, 10/2020Tdap: believes it is up to datePneumococcal: PCV13 (02/12/2017), PPV23 (01/11/2018)Shingri x: recommendedMammogra m: doneWould like to be done with colonoscopies. JOSEPH Duarte [address], [place], [address], [place] 01/12/2024 17:14:59 04/13/2024 text/html Gaby Morgan i s a 73 year old female patient here today for a surgical clearance appointment. She is having LOCO cataract removal with IOL on 05/01/24. Her past medical history is notable for malignant neoplasm of the lung (recovery since 2018), COPD, hypokalemia, PVD, pulmonary emphysema. She will have light sedation, will not require intubation. She admits she does not feel her Trelegy is very effective anymore JOSEPH Duarte [address], [place], [address], [place] 04/13/2024 11:37:04 07/27/2024 text/html Gaby Morgan i s a 74 year old female patient here today for SOB Shortness of breath and congestion since Wednesday. She is having a difficult time catching her breath.She is excessively fatigued. States her oxygen is typically low due to COPD, today highest was 86%. She states her baseline is not much higher than this. Has concerns with worsening urinary incontinence. States she is having urinary leakage through the night JOSEPH Duarte [address], [place], [address], [place] 07/27/2024 16:08:06 OBGyn Episode No OBEpisode recorded.
--- OUTSIDE RECORDS SUMMARY | 2024-08-06 17:32 | XMS_ITS | Encounter Summary ---
Author Organization [facility] Address [address] [place] [address]. [place] [address] [place] [address] Care Team Providers Care Flooring Sales Manager Name Role Phone Katlin Martinez NP Primary Care Provider [phone] Reason for Visit * Auth/Cert (Routine) Specialty Diagnoses / Procedures Referred By Alan t Referred To Contact Diagnoses H25.12 Procedures REMV CATARACT EXTRACAP,INSERT LENS CATARACT REMOVAL WITH IOL IMPLANT Referral ID Status Reason Start Date Expiration Date Visits Re quested Visits Authorized [id number] 1 1 Encounter Details Date Type Department Care Team (Latest Contact Info) Description 05/01/2024 9:56 AM CDT - 05/01/2024 12:40 PM CDT Hospital Encounter [facility] [address] [place] [address] Addy Alfaro MD [address] [facility] [address] [place] [address] Discharge Disposition: Home or Self Care (Routine Discharge) Social History Tobacco Use Types Packs/Day Years Used Date Smoking Tobacco: Never Smokeless Tobacco: Never Tobacco Cessation:Counseling Given: Not Answered Alcohol Use Standard Drinks/Week Comments Never 0 (1 standard drink = 0.6 oz pur e alcohol) Comments Unknown Sex and Gender Information Value Date Recorded Sex Assigned at Not on file Legal Sex Female 8:50 AM CDT Gender Identity Not on file Sexual Orientation Not on file documented as of this encounter Last Filed Vital Signs Vital Sign Reading Time Taken Comments Blood Pressure 157/83 05/01/2024 12:27 PM CDT Pulse 90 05/01/2024 12:27 PM CDT Temperature 36.3 ??C (97.3 ??F) 05/01/2024 10:19 AM C DT Respiratory Rate 16 05/01/2024 12:27 PM CDT Oxygen Saturation 92% 05/01/2024 12:27 PM CDT Inhaled Oxygen Concentration - - Weight 106.6 kg (235 lb) 05/01/2024 10:19 AM CDT Height 154.9 cm (5' 1 ) 05/01/2024 10:19 AM CDT Body Mass Index 44.4 05/01/2024 10:19 AM CDT documented in this encounter Discharge Instructions * Discharge Instructions* Isatu Jo RN - 05/01/2024 11:09 AM CDT [facility] POST-OP INSTRUCTIONS FOLLOWING CATARACT SURGERY 1. You will be sent home from surgery with a patch over your eye. DO NOT REMOVE THE PATCH FOR ANY REASON. Dr. Alfaro will remove the patch at your 1st Post-Op (The day of surgery or the next day) and instruct you on how to use your eye drops. 2. SLEEP ON YOUR BACK OR EITHER SIDE. The night after surgery DO NOT SLEEP FACE DOWN . 3. DO NOT RUB OR PRESS ON YOUR EYE. Blot underneath or at the corner of your eye. 4. PROTECT YOUR EYE WHEN YOU NAP DURING THE DAY OR SLEEP AT NIGHT FOR 10 DAYS FOLLOWING SURGERY. Use the clear plastic shield (found in your surgery kit). Place the shield over the eye with paper tape across it to hold the shield in place. 5. LIMIT BENDING MUCH POSSIBLE AND KEEP HEAD FROM A DEPENDENT POSITION. Instead, bend your knees. You may want to hold onto a chair etc. To help keep your balance. 6. DO NOT LIFT ANYTHING OVER 20 POUNDS FOR 2 WEEKS. 7. DO NOT DO ANY STRENUOUS WORK OR EXERCISE FOR 2 WEEKS. For example: Where you strain or break a sweat. 8. DO NOT GET SOAP IN YOUR EYES. When you shower and shampoo. 9. DO NOT WEAR EYE MAKEUP OR USE CREAMS OR LOTIONS around your eyes for 2 weeks. 10. YOU MAY DRIVE WHEN YOUR VISION PERMITS. Ask you doctor. You must have a taxi driver supervisor for the day of surgery and your 1st post op exam. 11. ALWAYS WERE SUNGLASSES WHEN YOU GO OUTSIDE. These are found in your surgery kit. Dr. Aflaro OFFICE [phone] AFTER HOURS EMERGENCY [phone] * Attachments The following attachments cannot be sent through Care Everywhere. * Cataract Removal Discharge Instructions (Tristanian) documented in this encounter Medications at Time of Discharge albuterol (ACCUNEB) 0.63 MG/3ML nebulizer solution Take 3 mLs (0.63 mg total) by nebulization every 6 (six) hours as needed for Wheezing. Fluticasone-Umec lidin-Vilant (TRELEGY ELLIPTA) 100-62.5-25 MCG/ACT AEROSOL POWDER, BREATH ACTIVATED Inhale 100 mcg into the lungs 2 (two) times daily as needed. furosemide (LASIX) 40 MG tablet Take 1 tablet (40 mg total) by mouth daily. simvastatin (ZOCOR) 20 MG tablet Take 1 tablet (20 mg total) by mouth nightly at bedtime. documented as of this encounter H&P Notes * Addy Alfaro MD - 05/01/2024 11:58 AM CDT HISTORY AND PHYSICAL INTERVAL NOTE: I have reviewed Gaby Morgan History & Physical which was performed within the past 30 days. After examining Gaby Morgan, no change has occurred in the patient's condition since the H&P was completed. Informed Consent Discussion: Potential benefits, risks, and side effects of the patient's procedure/surgery; the likelihood of the patient achieving his or her goals; and any potential problems that might occur during recuperation were discussed with the patient/family/personal new accounts banking representative. Reasonable alternatives to the patient's proposed procedure/surgery including benefits, risks, and side effects related to the alternatives and the risks related to not receiving the proposed care were also discussed with the patient/family/personal new accounts banking representative. Questions were answered and the patient/family/personal new accounts banking representative verbalized understanding and desires to proceed. Source Note - Lilibeth, Documents - 04/28/2024 10:21 AM CDT documented in this encounter OR Notes * Op Note - Addy Alfaro MD - 05/01/2024 11:59 AM CDT Date: 05/01/2024 Patient Name: Gaby Morgan : 1950 Surgeon: ADDY ALFARO M.D. Preoperative Diagnosis: Cataract left Postoperative Diagnosis: Cataract left Name of Operation: Cataract Extraction (by Phacoemulsification) and Intraocular Lens Implant Anesthesia: Topical Specimen: None Description of Procedure: The eye was anesthetized with topical 0.75% bupivacaine. After intravenous sedation and placement of monitors, the patient was prepped and draped in the usual sterile manner. A lid speculum was placed. A paracentesis was made, and preservative free 1% lidocaine was instilled in the anterior chamber. The anterior chamber was then filled with Viscoat viscoelastic. A atif keratome was used to create the wound. Continuous tear anterior capsulotomy was performed. The lens was hydro dissected before being removed with phacoemulsification. The remaining lenticular cortexwas removed with aspiration. The capsular bag was polished and filled with viscoelastic material. An intraocular lens was chosen, inspected, irrigated and placed within the capsular bag where it was seen to be centered and stable. The viscoelastic material was aspirated. The wound was closed and found to be watertight. Betadine and antibiotic drops were placed in the eye. The speculum was removed. A Frederick shield was applied. The patient tolerated the procedure well and left the operating room in satisfactory condition. Addy Alfaro MD documented in this encounter Plan of Treatment Upcoming Encounters Date Type Department Care Team (Late st Contact Info) Description 07/31/2024 11:59 PM ICU STAFF NURSE Anesthesia Event [facility] [address] [place] [address] Kristie Vang, [place] [address] documented as of this encounter Procedures Procedure Name Priority Date/Time Associated Diagnosis Comments REMV CATARACT EXTRACAP,INSERT LENS 05/01/2024 11:57 AM CDT H25.12 Special Needs C documented in this encounter Visit Diagnoses Not on filedocumented in this encounter Administered Medications Inactive Administered Medications - up to 3 most recent administrations Medication Order MAR Action Action Date Dose Rate Site besifloxacin (BESIVANCE) 0.6 % ophthalmic suspension 1 drop 1 drop, Left Eye, Every 5 min, 3 doses, First dose on Wed05/01/24 at 1030, Last dose on Wed05/01/24 at 1040, Instill to operative eye, Pre-Op Given 05/01/2024 11:16 AM CDT 1 drop Given 05/01/2024 11:06 AM CDT 1 drop Given 05/01/2024 10:56 AM CDT 1 drop lactated ringers infusion at 10 mL/hr, Intravenous, Continuous, Starting on Wed05/01/24 at 1030, Until Wed05/01/24 at 1440, Infuse at TKO rate, Pre-Op methazolAMIDE (NEPTAZANE) tablet 50 mg 50 mg, Oral, Once, 1 dose, On Wed05/01/24 at 1130, If NOT allergic to Sulfa, Post-Op Given 05/01/2024 12:34 PM CDT 50 mg proparacaine (ALCAINE) 0.5 % ophthalmic solution 1 drop 1 drop, Left Eye, Every 5 min, 3 doses, First dose on Wed05/01/24 at 1030, Last dose on Wed05/01/24 at 1040, Instill to operative eye, Pre-Op Given 05/01/2024 11:16 AM CDT 1 drop Given 05/01/2024 11:11 AM CDT 1 drop Given 05/01/2024 10:57 AM CDT 1 drop tropicamide 1%-cyclopentolate 1%-phenylephrine 2.5%-ketorolac 0.5% ophthalmic solution 1 drop 1 drop, Left Eye, Every 5 min, 3 doses, First dose on Wed05/01/24 at 1030, Last dose on Wed05/01/24 at 1040, Instill in operative eye, Pre-Op Given 05/01/2024 11:16 AM CDT 1 drop Given 05/01/2024 11:07 AM CDT 1 drop Given 05/01/2024 10:57 AM CDT 1 drop documented in this encounter Active and Recently Administered Medications Times are shown in CDT. Scheduled Medication Order 04/29/2024 04/30/2024 05/01/2024 besifloxacin (BESIVANCE) 0.6 % ophthalmic suspension 1 drop (COMPLETED) 1 drop, Left Eye, Every 5 min, 3 doses, First dose on Wed05/01/24 at 1030, Last dose on Wed05/01/24 at 1040, Instill to operative eye, Pre-Op 1056 (Given - Provid er: Jane Barron RN)1106 (Given - Provider: Jane Barron RN)1116 (Given - Provider: Jane Barron RN) methazolAMIDE (NEPTAZANE) tablet 50 mg (COMPLETED) 50 mg, Oral, Once, 1 dose, On Wed05/01/24 at 1130, If NOT allergic to Sulfa, Post-Op 1234 (Given - Provid er: Isatu Jo RN) proparacaine (ALCAINE) 0.5 % ophthalmic solution 1 drop (COMPLETED) 1 drop, Left Eye, Every 5 min, 3 doses, First dose on Wed05/01/24 at 1030, Last dose on Wed05/01/24 at 1040, Instill to operative eye, Pre-Op 1057 (Given - Provid er: Jane Barron RN)1111 (Given - Provider: Jane Barron RN)1116 (Given - Provider: Jane Barron RN) tropicamide 1%-cyclopentolate 1%-phenylephrine 2.5%-ketorolac 0.5% ophthalmic solution 1 drop (COMPLETED) 1 drop, Left Eye, Every 5 min, 3 doses, First dose on Wed05/01/24 at 1030, Last dose on Wed05/01/24 at 1040, Instill in operative eye, Pre-Op 1057 (Given - Provid er: Jane Barron RN)1107 (Given - Provider: Jane Barron RN)1116 (Given - Provider: Jane Barron RN) Continuous Medication Order 04/29/2024 04/30/2024 05/01/2024 lactated ringers infusion at 10 mL/hr, Intravenous, Continuous, Starting on Wed05/01/24 at 1030, Until Wed05/01/24 at 1440, Infuse at TKO rate, Pre-Op 1030 (Canceled Entry - Provider: Automatic Discharge Provider - Comment: Automatically canceled at discontinue of medication order) PRN Medication Order 04/29/2024 04/30/2024 05/01/2024 apraclonidine (IOPIDINE) 0.5% ophthalmic solution (CANCELED) As needed, Starting on Wed05/01/24 at 1222, Until Wed05/01/24 at 1226, Intra-Op 1222 (Given - Provid er: Addy Alfaro MD) EPINEPHrine 0.3 mg in balanced salts (BSS) irrigation solution (CANCELED) As needed, Starting on Wed05/01/24 at 1214, Until Wed05/01/24 at 1226, Intra-Op 1214 (Given - Provid er: Addy Alfaro MD) lidocaine (PF) (XYLOCAINE) 1 % injection (CANCELED) As needed, Starting on Wed05/01/24 at 1214, Until Wed05/01/24 at 1226, Intra-Op 1214 (Given - Provid er: Addy Alfaro MD) moxifloxacin (VIGAMOX) 0.5% ophthalmic solution (CANCELED) As needed, Starting on Wed05/01/24 at 1223, Until Wed05/01/24 at 1226, Intra-Op 1223 (Given - Provid er: Addy Alfaro MD) vmomfyds-ibwavkice-tkbatbcmweolk (MAXITROL) ophthalmic ointment (CANCELED) As needed, Starting on Wed05/01/24 at 1223, Until Wed05/01/24 at 1226, Intra-Op 1223 (Given - Provid er: Addy Alfaro MD) povidone-iodine (BETADINE) 5 % ophthalmic solution (CANCELED) As needed, Starting on Wed05/01/24 at 1214, Until Wed05/01/24 at 1226, Intra-Op 1214 (Given - Provid er: Addy Alfaro MD) documented in this encounter Care Teams Flooring Sales Manager Relationship Specialty Start Date End Date Katlin Martinez NP [address] [facility] [place] [address] PCP - General NURSE PRACTITIONER 04/24/24 documented as of this encounter
--- OUTSIDE RECORDS SUMMARY | 2024-08-06 17:32 | XMS_ITS | Encounter Summary ---
Author Organization [facility] Address [address] [place] [address]. [place], [place] [address] [place] [address] Care Team Providers Care Botany Laboratory Assistant Name Role Phone Katlin Martinez NP Primary Care Provider [phone] Reason for Visit * Auth/Cert (Routine) Specialty Diagnoses / Procedures Referred By Alan t Referred To Contact Diagnoses H25.12 Procedures REMV CATARACT EXTRACAP,INSERT LENS CATARACT REMOVAL WITH IOL IMPLANT Referral ID Status Reason Start Date Expiration Date Visits Re quested Visits Authorized [id number] 1 1 Encounter Details Date Type Department Care Team (Late st Contact Info) Description 05/01/2024 11:57 AM CDT Anesthesia Event [facility] [address] [place] [address] Sienna Hartley CRNA [address] [place] [address] Kristie Vang CRNA [address] [facility] [address] [place] [address] Anesthesia Record Procedure Summary Procedure Name Responsible Anesthesiologist Anesthesia Start Time Anesthesia Stop Time CATARACT REMOVAL WITH IOL IMPLANT (Left: Eye) Sienna Hartley CRNA 05/01/24 1157 05/01/24 1222 Events Date Time Event Comment 05/01/2024 1138 1138 AN FARMWORKER CRANBERRY Prepped 1157 An Start Patient ID and consent checked and patient reassessed. 1157 An Start Data 1157 AN Immediate Reassess The pa tient was reevaluated immediately before sedation or regional anesthesia. 1157 Anesthesia Ready 1222 An Stop 1222 an stop data 1222 Post Anesthetic Care Handoff I completed my handoff to the receiving nurse during which we: 1. Identified the patient 2. Identified the responsible provider 3. Reviewed the pertinent medical history 4. Discussed the surgical course 5. Reviewed intra-op anesthesia management and issues during anesthesia 6. Set expectations for post-procedure period 7. Allowed opportunity for questions and acknowledgement of understanding. Meds Name Total midazolam 2 mg/2 mL injection 1 mg * Agents Name O2 * Blood No blood administrations on file. Lines, Drains, and Airways Type Details Placement Removal Peripheral IV Placement Date: 05/01/24; Placement Time: 1023; Placed Outside of This Facility?: No; Size: 20 G; Orientation: Right; Location: Hand; Site Prep: Chlorhexidine; Local Anesthetic: None; Inserted By: Jennifer Campa RN.; Insertion attempts: 1; Ultrasound-guided Placement?: No; Patient Tolerance: Tolerated well; Removal Date: 05/01/24; Removal Time: 1231; Removal Reason: Patient Discharged 05/01/24 1023 by Jane Barron RN 05/01/24 1231 by Isatu Jo RN Surgical/Incision 05/01/24; 1223; Surgical Wound; Eye; Left; eye patch, eye shield, tape; 05/01/24; 1440 05/01/24 1223 by Alejandra Yost RN 05/01/24 1440 by Automatic Discharge Provider documented in this encounter Social History Tobacco Use Types Packs/Day Years Used Date Smoking Tobacco: Never Smokeless Tobacco: Never Alcohol Use Standard Drinks/Week Comments Never 0 (1 standard drink = 0.6 oz pur e alcohol) Comments Unknown Sex and Gender Information Value Date Recorded Sex Assigned at Not on file Legal Sex Female 8:50 AM CDT Gender Identity Not on file Sexual Orientation Not on file documented as of this encounter OR Notes * Anesthesia Postprocedure Evaluation - Sienna Hartley CRNA - 05/01/2024 12:23 PM CDT Anesthesia Post-op Note Gaby Morgan Procedure(s): CATARACT REMOVAL WITH IOL IMPLANT (Left: Eye) Anesthesia type: MAC Vitals: 05/01/24 1019 BP: (!) 155/82 Vitals: 05/01/24 1019 Pulse: 93 Vitals: 05/01/24 1019 Resp: 16 Vitals: 05/01/24 1019 Temp: 36.3 ??C Vitals: 05/01/24 1019 SpO2: 93% Patient Location: Phase II/Outpatient Level of Consciousness: awake, alert and oriented Pain Management: adequate analgesia Airway Patency: patent Respiratory Status: acceptable Cardiovascular Status: acceptable Post-Op Nausea: none Postoperative Hydration: euvolemic There were no known notable events for this encounter. * Anesthesia Preprocedure Evaluation - Sienna Hartley CRNA - 04/18/2024 7:34 AM CDT Anesthesia ROS/MED History Reviewed: Patient summary , Nursing notes , Family history anesthesia, Anesthesia history , Medications Pre-Anesthetic State: Pulmonary (+) COPD Cardiovascular (+) hyperlipidemia Neuro/Psych Substance Use GI/Hepatic/Renal Endo/Other (+) obese, cancer GENERAL COMMENTS H/O Lung CA NPO Status: Physical Evaluation Airway Mallampati: II TM Distance: >3 FB Neck ROM: normal Dental No notable dental history Pulmonary Breath sounds clear to auscultation Cardiovascular Rhythm: regular Rate: normal STOP-Bang Assessment: Anesthesia Plan ASA 3 Intravenous Induction Anesthesia type: MAC Plan for Airway: nasal cannula/simple face mask Plan for Post-op Pain Plan: as per surgeon Informed Consent Anesthetic plan and risks discussed with patient of whom consent was obtained. . documented in this encounter Plan of Treatment Upcoming Encounters Date Type Department Care Team (Late st Contact Info) Description 07/31/2024 11:59 PM [employer] Anesthesia Event [facility] [address] [place] [address] Kristie Vang CRNA [address] [place] [address] [place] [address] documented as of this encounter Visit Diagnoses Not on filedocumented in this encounter Administered Medications Inactive Administered Medications - up to 3 most recent administrations Medication Order MAR Action Action Date Dose Rate Site midazolam (VERSED) injection Intravenous, PRN, Starting on Wed05/01/24 at 1158, Until Wed05/01/24 at 1222, Anesthesia Intra-Op Given 05/01/2024 11:58 AM CDT 1 mg documented in this encounter Care Teams Botany Laboratory Assistant Relationship Specialty Start Date End Date Katlin Martinez NP [address] [place] [address] PCP - General NURSE PRACTITIONER 04/24/24 documented as of this encounter
--- OUTSIDE RECORDS SUMMARY | 2024-08-06 17:32 | XMS_ITS | Encounter Summary ---
Author Organization [facility] Address [address] [place] [address]. [place], [place] [address] [place] [address] Care Team Providers Care Shot Man Name Role Phone Katlin Martinez NP Primary Care Provider [phone] Encounter Details Date Type Department Care Team (Latest Contact Info) Description 05/01/2024 Travel Social History Tobacco Use Types Packs/Day Years [...] on file documented as of this encounter Plan of Treatment Upcoming Encounters Date Type Department Care Team (Late st Contact Info) Description 07/31/2024 11:59 PM MANAGER LAUNDRY Anesthesia Event [facility] [address] [place] [address] Kristie Vang, [address] [place] [address] documented as of this encounter Visit Diagnoses Not on filedocumented in this encounter Care Teams Shot Man Relationship Specialty Start Date End Date Katlin Martinez NP [address] [place] [phone] PCP - General NURSE PRACTITIONER 04/24/24 documented as of this encounter
--- OUTSIDE RECORDS SUMMARY | 2024-08-06 17:32 | XMS_ITS | Continuity of Care Document ---
Author Organization [place] [facility], [facility] Address [address] [place] [address] Care Team Providers Care Dressmaker Helper Name Role Phone PAULA SANTILLAN Primary Care Provider PAULA SANTILLAN Referring Provider [phone] SANDI WASHINGTON Primary Care Provider Assessment No assessment recorded. Plan of Treatment Reminders Order Date Submit Date Provider Last Modified By Organization Details Last Modified Time Details Appointments None recorded. Lab None recorded. Referral None recorded. Procedures None recorded. Surgeries None recorded. Imaging None recorded. Medication Orders azithromyci n 250 mg tablet 2023 [facility][id number], [address], [id number], 4 14:27:13 triamcinolo ne acetonide 40 mg/mL suspension for injection 2023 Not available 14:41:15 Medrol (Neymar) 4 mg tablets in a dose pack 2023 [facility] #89223, [address] [facility] [address] [place] [address], [id number], 4 14:37:51 Myrbetriq 50 mg tablet,exte nded release 2023 [facility], [address] [facility] [address] [place] [address], [id number], 4 14:37:42 Patient TargetsNo targets recorded. Patient InstructionsNo instructions recorded. Reason for Referral None Reported. Problems Name Problem SNOMED Code Status Onset Date Resolution Date Notes Provider Name and Address Organization Details Recorded Time Impacted cerumen of bilateral ears 19227215511 30097 Completed 201804/13/2024 JOSEPH Duarte [address], [place], [address] , [employer] 4 11:14:14 Excessive cerumen in ear canal 292842647 Completed 04/13/2024 JOSEPH Duarte [address], [place], [address] , [facility] 4 11:14:18 Chronic obstructi ve pulmonary disease 86870757 Active Not Available [facility] 3 08:09:02 Acute sinusitis 05901967 Completed 04/13/2024 JOSEPH Duarte [address], [place], [address] , [facility] 4 11:13:04 On examinati on - blackhead s present Completed 201804/13/2024 JOSEPH Duarte [address], [place], [address] , [facility] 4 11:14:05 Asthma 820005360 Active Not Available [facility] 3 08:09:02 Periphera l venous insuffici ency 41107999 Completed 04/13/2024 JOSEPH Duarte [address], [place], [address] , [facility] 4 11:14:03 Small cell carcinoma of lung 510567890 Active 2016 Not Available [facility] 3 08:09:02 Edema 033495820 Active 2019 Not Available [facility] 3 08:09:02 Shoulder joint pain 248300062 Active 2016 Not Available [facility] 3 08:09:02 Dehydrati on 84397528 Completed 04/13/2024 JOSEPH Duarte [address], [place], [address] , [facility] 4 11:14:20 Malignant tumor of lung 258732678 Active 2018 Not Available [facility] 3 08:09:02 Sinusitis 71183146 Completed 04/13/2024 JOSEPH Duarte [address], [place], [address] , [facility] 4 11:13:51 Hypoxia 808275686 Active 2018 Not Available [facility] 3 08:09:03 Umbilical hernia 471994446 Active 2017 Not Available [facility] 3 08:09:03 Diverticu lar disease of colon 124723124 Active 2018 Not Available [facility] 3 08:09:03 Rosacea 161130862 Active Not Available [facility] 3 08:09:03 Vertigo 370900290 Active 2018 Not Available [facility] 3 08:09:03 Periphera l vascular disease 685822096 Active 2021 Not Available [facility] 3 08:09:03 Body mass index 40+ - severely obese 756826993 Active 2018 Not Available [facility] 3 08:09:03 Seasonal allergy 495182260 Completed 04/13/2024 JOSEPH Duarte [address], [place], [address] , [facility] 4 11:24:22 Cough 37468485 Completed 04/13/2024 JOSEPH Duarte [address], [place], [address] , [facility] 4 11:14:24 Upper respirato ry infection 46148542 Completed 04/13/2024 JOSEPH Duarte [address], [place], [address] , [facility] 4 11:13:47 Hyperlipi demia 35973560 Active Not Available [facility] 3 08:09:04 Chronic bronchiti s 63929821 Active 2018 Not Available [facility] 3 08:09:04 Rhinitis 61800400 Completed 04/13/2024 JOSEPH Duarte [address], [place], [address] , [facility] 4 11:13:45 Pulmonary hypertens ion 15581377 Active 2018 Not Available [facility] 3 08:09:04 Posterior rhinorrhe a 64902904 Completed 04/13/2024 JOSEPH Duarte [address], [place], [address] , [facility] 4 11:14:00 Impaired mobility 18298181 Active 2021 Not Available [facility] 3 08:09:04 Pulmonary emphysema 81942078 Active 2016 Not Available [facility] 3 08:09:05 Impairmen t of balance 990249679 Active 2023 JOSEPH Duarte [address], [place], [address] , [facility] 4 15:54:42 Acute exacerbat ion of chronic obstructi ve pulmonary disease 694360424 Active 2023 JOSEPH Duarte [address], [place], [address] , [facility] 4 14:25:52 Overactiv e urinary bladder 653041179 Active 2023 JOSEPH Duarte [address], [place], [address] , [facility] [employer] [facility] 4 14:37:11 Alma wong 28413149 Active 2023 JOSEPH Duarte [address] [facility] [address], [place], [address] , [facility] [employer] [facility] 4 14:39:02 Problem Notes None recorded. Procedures Surgical History Date Name Laterality Status Provider Name and Address Organization Details Recorded Time delivery completed Not Available [facility] 10/07/2022 08:06:10 Imaging Results None recorded. Procedure Notes None recorded. Medical Equipment None Reported. Allergies Allergen ID Allergen Name Allergen Category Reaction Reaction Severity Criticality Documentation Date Start Date Code Code System Note Provider Name and Address Organization Details Recorded Time 65642 Crestor medicatio n other Not available Not available 10/07/2022 96908 4 RxNorm incre ased liver enzym es Not Available [facility] 3 08:13:00 Medications Name Sig Start Date Stop [...] 40 mg/mL suspensio n for injection active [facility]# 97500-02 63-01 Not Available Not Available Not Available [...] 6 mg/mL suspensio n for injection active [facility]# [id number] 66-05 Not Available Not Available Not Available [...] note: Pt tollerat ed wellExte rnal note: [facility]# [id number] Not Available Not Available Not Available prochlorp [...] completed Not Available Not Available Not Available RABBL 1.5 billion cell capsule Take 1 capsule every day by oral route in the morning for 30 days. 12/23 completed Not Available Not Available Not Available RABBL Take one tablet daily 04/23 completed Not [...] Relief 50 mcg/actua tion nasal spray,yehuda pension [place] 1 spray every day by intranas al [...] completed Not Available Not Available Not Available [facility] [employer] 160 mcg-9mcg- 4.8mcg/ac tuation HFA [...] Available Not Available Vitals Date Recorded Body height Body mass index (BMI) Body weight Body temperature Respiratory rate Heart rate Oxygen saturation Oxygen saturation in Arterial blood by Pulse oximetry Systolic blood pressure Diastolic blood pressure Provider Name and Address Organization Details Last Updated DateTime 4 154.94 cm 45 kg/m2 316322. 08 g 98.1 [degF] 40 /min 130 /min 81 % 81 % 150 mm[Hg] 78 mm[Hg] Paula Huber RN [place] - [facility] 4 14:18:35 Social History Question Answer Notes LastModified by Organization Details LastModified Time Tobacco Smoking Status Former Smoker Not Available [facility] 10/07/2022 08:06:02 Do You Have An Advance Directive? Yes Information not available 01/12/2024 What Is Your Level Of Alcohol Consumption? None MIGRATION.0301 827657 Information not available 10/07/2022 Are You Blind Or Do You Have Difficulty Seeing? Yes Cataracts Information not available 01/12/2024 Is Blood Transfusion Acceptable In An Emergency? Yes Information not available 01/12/2024 What Is Your Level Of Caffeine Consumption? Moderate MIGRATION.0301 202018 Information not available 10/07/2022 What Is Your Code Status? Full Code Not If Brain Information not available 01/12/2024 In The 14 Days Before Symptom Onset, Have You Had Close Contact With A Laboratory-conf irmed COVID-19 While That Case Was Ill? No MIGRATION.0301 547055 Information not available 10/07/2022 In The 14 Days Before Symptom Onset, Have You Had Close Contact With A Person Who Is Under Investigation For COVID-19 While That Person Was Ill? No MIGRATION.0301 706689 Information not available 10/07/2022 Are You Deaf Or Do You Have Serious Difficulty Hearing? No MIGRATION.0301 673348 Information not available 10/07/2022 What Type Of Diet Are You Following? REGULAR Watching Calories MIGRATION.0301 256327 Information not available 10/07/2022 What Is Your Occupation? Retired MIGRATION.0301 619182 Information not available 10/07/2022 Have There Been Any Changes To Your Family Or Social Situation? No MIGRATION.0301 055359 Information not available 10/07/2022 When Did You Quit Smoking? 11-15yearssincelas tcigarette MIGRATION.0301 440092 Information not available 10/07/2022 Do You Use Insect Repellent Routinely? Yes MIGRATION.0301 220680 Information not available 10/07/2022 Where Do You Live? SingleLevelHouse Information not available 01/12/2024 Do You Have A Medical Power Of Filler Shredder Helper? Yes Information not available 01/12/2024 What Was The Date Of Your Most Recent Tobacco Screening? 04/08/2021 MIGRATION.0301 374655 Information not available 10/07/2022 How Many Children Do You Have? -2 Information not available 01/12/2024 Do You Have Any Pets? No MIGRATION.0301 232513 Information not available 10/07/2022 What Is Your Relationship Status? MIGRATION.0301 089953 Information not available 10/07/2022 Do You Use Your Seat Belt Or Car Seat Routinely? Yes MIGRATION.0301 111575 Information not available 10/07/2022 Do You Have Smoke And Carbon Monoxide Detectors In Your Home? Yes MIGRATION.0301 278049 Information not available 10/07/2022 At What Age Did You Start Smoking Tobacco? 15 MIGRATION.0301 934244 Information not available 10/07/2022 Are You Passively Exposed To Smoke? No Information not available 04/13/2024 Are There Any Smokers In Your House? No MIGRATION.0301 180564 Information not available 10/07/2022 Do You Participate In Social Media? Yes MIGRATION.0301 081864 Information not available 10/07/2022 Do You Feel Stressed (tense, Restless, Nervous, Or Anxious, Or Unable To Sleep At Night)? [id number] Information not available 04/13/2024 Do You Use Any Illicit Or Recreational Drugs? No MIGRATION.0301 148656 Information not available 10/07/2022 Has Tobacco Cessation Counseling Been Provided? No MIGRATION.0301 610338 Information not available 10/07/2022 Have You Recently Traveled Abroad? No MIGRATION.0301 287452 Information not available 10/07/2022 Do You Have Any Dietary Restrictions? No MIGRATION.0301 527046 Information not available 10/07/2022 Do You Or Have You Ever Used Any Other Forms Of Tobacco Or Nicotine? No MIGRATION.0301 196664 Information not available 10/07/2022 Sex: Unknown Functional Status Question Answer Note LastModified by Organizat ion Details LastModified Time Do you have [...] you able to care for yourself? Yes MIGRATION.577094 1022 Information not available 10/07/2022 Do you have difficulty dressing or bathing? No MIGRATION.987351 4593 Information not available 10/07/2022 What is your exercise level? None MIGRATION.340995 1377 Information not available 10/07/2022 Mental Status Question Answer Note LastModified by Organizat ion Details LastModified Time Do you have difficulty concentrating, remembering or making decisions? No MIGRATION.116728595 6 Information not available 10/07/2022 Family History Nothing Reported. Medical History Condition Response ALLERGIES/HAYFEVER Y OTHER # 1 Y COPD Y HYPERTENSION Y HIGH CHOLESTEROL / HYPERLIPIDEMIA Y CANCER: SPECIFY Y ASTHMA Y DEPRESSION (INCLUDING POST ) Y HAVE YOU BEEN HOSPITALIZED OR SEEN IN [facility] IN THE PAST YEAR ? Y Do you have Advance directive? Y [...] virus, trivalent, PF 4 completed Not Available [facility] 10/07/2022 08:12:54 COVID-19, mRNA, LNP-S, PF, 100 mcg/0.5mL dose or 50 mcg/0.25mL dose 1 completed Not Available [facility] 10/07/2022 08:12:54 COVID-19, mRNA, LNP-S, PF, 100 mcg/0.5mL dose or 50 mcg/0.25mL dose 1 completed Not Available [facility] 10/07/2022 08:12:54 Tdap 1 completed Not Available [facility] 10/07/2022 08:12:55 pneumococcal polysaccharide PPV23 8 completed Not Available [facility] 10/07/2022 08:12:55 Pneumococcal conjugate PCV 13 7 completed Not Available [facility] 10/07/2022 08:12:55 Past Encounters Encounter ID Performer Location Encounter Start Date Encounter Closed Date Diagnosis/Indication Diagnosis SNOMED-CT Code Diagnosis ICD10 Code [id number] JOSEPH Duarte [facility] [address] [place] [address] 07/27/2024 14:06:00 07/27/2024 14:43:11 Acute exacerbation of chronic obstructive pulmonary disease 421745523 J44.1 Overactive urinary bladder 321359392 N32.81 Verruca palmaris 7953997 2 B07.0 Health Concerns Section Related Observation LastModified by Organization Detai ls LastModified Time None Recorded Concern Status LastModified by Organization Details LastModified Time None Recorded Payers Encounter Date Sequence Insurance Name Policy Number Policy Esteban Covered Member ID Esteban Member ID Guarantor Name 07/27/2024 1 [place] Gaby Morgan [id number] Gaby Morgan 07/27/2024 2 [place]) 111 Gaby Morgan [id number] Gaby Morgan Notes Date Note Type Note Provider Name and Address Organization Details Recorded Time 07/27/2024 text/html Gaby Morgan i s a [...] leakage through the night JOSEPH Duarte [address] [facility] [address], [place], [address], [facility] 07/27/2024 16:08:06 OBGyn Episode No OBEpisode recorded.
--- OUTSIDE RECORDS SUMMARY | 2024-08-06 17:32 | XMS_ITS | Encounter Summary ---
Author Organization [facility] Address [address] [place] [address]. [place] [address] [place] [address] Care Team Providers Care Automotive Mechanic Name Role Phone Katlin Martinez NP Primary Care Provider [phone] Reason for Visit * Auth/Cert (Routine) Specialty Diagnoses / Procedures Referred By Alan t Referred To Contact Diagnoses H25.12 Procedures REMV CATARACT EXTRACAP,INSERT LENS CATARACT REMOVAL WITH IOL IMPLANT Referral ID Status Reason Start Date Expiration Date Visits Re quested Visits Authorized [id number] 1 1 Encounter Details Date Type Department Care Team (Late st Contact Info) Description 05/01/2024 2:10 PM CDT - 05/01/2024 2:54 PM CDT Surgery [facility] [address] [place] [address] Addy Alfaro MD [address] [facility] [address] [phone] CATARACT REMOVAL WITH IOL IMPLANT Surgery Details Date/Time Status Location OR Service Patient Class Case Class Case Type Trauma Case? 05/01/2024 2:10 PM Posted [facility] OR OR 2 Ophthalmology Short Stay/Outpat ient Surgery No Panel 1 Procedure LRB Anes Op Region Wound Class Comments CATARACT REMOVAL WITH IOL IMPLANT Left Monitor Anesthesia Care Eye Clean Surgeon Surgeon Role Service Panel Addy Alfaro MD Primary Ophthalmology 1 Special Needs C documented in this encounter Social History Tobacco [...] Jo RN - 05/01/2024 11:09 AM CDT [facility] POST-OP INSTRUCTIONS FOLLOWING CATARACT SURGERY [...] Ask you doctor. You must have a motor driver for the day of surgery and your 1st post op exam. 11. ALWAYS WERE SUNGLASSES WHEN YOU GO OUTSIDE. These are found in your surgery kit. Dr. Alfaro OFFICE [phone] AFTER HOURS EMERGENCY [phone] * Attachments The following attachments cannot be sent through Care Everywhere. * Cataract Removal Discharge Instructions (Bulgarian) documented in this encounter Medications at Time [...] during recuperation were discussed with the patient/family/personal business center representative. Reasonable alternatives to the patient's proposed procedure/surgery including benefits, risks, and side effects related to the alternatives and the risks related to not receiving the proposed care were also discussed with the patient/family/personal business center representative. Questions were answered and the patient/family/personal business center representative verbalized understanding and desires to proceed. Source Note - Zscanned, Documents - 04/28/2024 10:21 AM CDT documented in this encounter OR Notes * Op Note - Addy Alfaro MD - 05/01/2024 11:59 AM CDT Date: 05/01/2024 Patient Name: Gaby Melendezrima : 1950 Surgeon: ADDY ALFARO M.D. Preoperative [...] being removed with phacoemulsification. The remaining lenticular cortex was removed with aspiration. The capsular bag was polished and filled with viscoelastic material. An intraocular lens was chosen, inspected, irrigated and placed within the capsular bag where it wasseen to be centered and stable. The viscoelastic [...] st Contact Info) Description 07/31/2024 11:59 PM SECOND GRADE TEACHER Anesthesia Event [facility] [address] [place] [address] Kristie Vang, MORNING BABYSITTER [address] [facility] [address] [place] [id number] documented as of this encounter Procedures Procedure Name Priority Date/Time Associated Diagnosis Comments REMV CATARACT EXTRACAP,INSERT LENS 05/01/2024 11:57 AM CDT H25.12 Special Needs C documented in this encounter Visit Diagnoses Not on filedocumented in this encounter Administered Medications Inactive Administered Medications - up to 3 most recent administrations Medication Order MAR Action Action Date Dose Rate Site apraclonidine (IOPIDINE) 0.5% ophthalmic solution As needed, Starting on Wed05/01/24 at 1222, Until Wed05/01/24 at 1226, Intra-Op Given 05/01/2024 12:22 PM CDT 1 drop besifloxacin (BESIVANCE) 0.6 % ophthalmic suspension 1 drop 1 drop, Left Eye, Every 5 min, 3 doses, First dose on Wed05/01/24 at 1030, Last dose on Wed05/01/24 at 1040, Instill to operative eye, Pre-Op Given 05/01/2024 11:16 AM CDT 1 drop Given 05/01/2024 11:06 AM CDT 1 drop Given 05/01/2024 10:56 AM CDT 1 drop EPINEPHrine 0.3 mg in balanced salts (BSS) irrigation solution As needed, Starting on Wed05/01/24 at 1214, Until Wed05/01/24 at 1226, Intra-Op Given 05/01/2024 12:14 PM CDT 500 mLs lactated ringers infusion at 10 mL/hr, Intravenous, Continuous, Starting on Wed05/01/24 at 1030, Until Wed05/01/24 at 1440, Infuse at TKO rate, Pre-Op lidocaine (PF) (XYLOCAINE) 1 % injection As needed, Starting on Wed05/01/24 at 1214, Until Wed05/01/24 at 1226, Intra-Op Given 05/01/2024 12:14 PM CDT 1 mL methazolAMIDE (NEPTAZANE) tablet 50 mg 50 mg, Oral, Once, 1 dose, On Wed05/01/24 at 1130, If NOT allergic to Sulfa, Post-Op Given 05/01/2024 12:34 PM CDT 50 mg moxifloxacin (VIGAMOX) 0.5% ophthalmic solution As needed, Starting on Wed05/01/24 at 1223, Until Wed05/01/24 at 1226, Intra-Op Given 05/01/2024 12:23 PM CDT 1 drop razkwyai-foutwqprb-kvsdbjcmfmnzl (MAXITROL) ophthalmic ointment As needed, Starting on Wed05/01/24 at 1223, Until Wed05/01/24 at 1226, Intra-Op Given 05/01/2024 12:23 PM CDT 1 Application povidone-iodine (BETADINE) 5 % ophthalmic solution As needed, Starting on Wed05/01/24 at 1214, Until Wed05/01/24 at 1226, Intra-Op Given 05/01/2024 12:14 PM CDT 1 drop proparacaine (ALCAINE) 0.5 % ophthalmic solution 1 [...] shown in CDT. Scheduled Medication Order 04/29/2024 04/30/202405/0105/01/2024 besifloxacin (BESIVANCE) 0.6 % ophthalmic suspension 1 [...] (Given - Provid er: Addy Alfaro MD) qpbozadm-qesootlbn-pzrjtyzvtlzcs (MAXITROL) ophthalmic ointment (CANCELED) As needed, Starting on Wed05/01/24 at 1223, Until Wed05/01/24 at 1226, Intra-Op 1223 (Given - Provid er: Addy Alfaro MD) povidone-iodine (BETADINE) 5 % ophthalmic solution (CANCELED) As needed, Starting on Wed05/01/24 at 1214, Until Wed05/01/24 at 1226, Intra-Op 1214 (Given - Provid er: Addy Alfaro MD) documented in this encounter Care Teams Automotive Mechanic Relationship Specialty Start Date End Date Katlin Martinez NP [address] [place] [address] PCP - General NURSE PRACTITIONER 04/24/24 documented as of this encounter
--- OUTSIDE RECORDS SUMMARY | 2024-08-06 17:32 | XMS_ITS | Clinical Summary ---
Author Organization [facility] Address [address] [place] [address]. [place] [address] [place] [address] Care Team Providers Care Keeper Head Name Role Phone Katlin Martinez NP Primary Care Provider [phone] Allergies No known active allergies Medications simvastatin (ZOCOR) 20 MG tablet Take 1 tablet (20 mg total) by mouth nightly at bedtime. Active furosemide (LASIX) 40 MG tablet Take 1 tablet (40 mg total) by mouth daily. Active albuterol (ACCUNEB) 0.63 MG/3ML nebulizer solution Take 3 mLs (0.63 mg total) by nebulization every 6 (six) hours as needed for Wheezing. Active Fluticasone-Um eclidin-Vilant (TRELEGY ELLIPTA) 100-62.5-25 MCG/ACT AEROSOL POWDER, BREATH ACTIVATED Inhale 100 mcg into the lungs 2 (two) times daily as needed. Active predniSONE (DELTASONE) 5 mg tabletIndicati ons:Started 07/27/24 Take 1 tablet (5 mg total) by mouth daily. Indications: Started 07/27/24 024 Discontin ued(Patie nt Discharge ) azithromycin (ZITHROMAX) 250 MG tabletIndicati ons:Started 07/27/24 Take 1 tablet (250 mg total) by mouth daily. Indications: Started 07/27/24 Take 2 tablets by mouth on day one then 1 daily for four days. 024 Discontin ued(Patie nt Discharge ) Social History Tobacco Use Types Packs/Day Years [...] on file Sexual Orientation Not on file Last Filed Vital Signs Vital Sign Reading Time Taken Comments Blood Pressure 157/83 05/01/2024 12:27 PM CDT Pulse 90 05/01/2024 12:27 PM CDT Temperature 36.3 ??C (97.3 ??F) 05/01/2024 10:19 AM C DT Respiratory Rate 16 05/01/2024 12:27 PM CDT Oxygen Saturation 92% 05/01/2024 12:27 PM CDT Inhaled Oxygen Concentration - - Weight 106.6 kg (235 lb) 07/28/2024 1:21 PM AIRLINE TICKET AGENT Height 154.9 cm (5' 1 ) 07/28/2024 1:21 PM AIRLINE TICKET AGENT Body Mass Index 44.4 07/28/2024 1:21 PM AIRLINE TICKET AGENT Plan of Treatment Upcoming Encounters Date Type Department Care Team (Late st Contact Info) Description 07/31/2024 11:59 PM AIRLINE TICKET AGENT Anesthesia Event [facility] [address] [place] [address] Kristie Vang, [place] [address] Health Maintenance Due Date Last Done Comments Colorectal Cancer Screening Colonoscopy (10 Years) 1950 Hepatitis C 1967 Zoster Vaccines (1 of 2) 1999 Annual Medicare Wellness Visit 2014 Dexa Scan (General) 2014 DTaP, Tdap and Td Vaccines (2 - Td or Tdap) 02/03/2021 02/03/2011 COVID-19 Vaccine ( season) 2024 06/16/2021, 10/28/2020, 09/26/2020 Influenza Adult (#1) 2024 07/28/2021, 05/13/2020, 06/26/2019, Additional history exists RSV Immunization or 60+ Years (1 - 1-dose 75+ series) 2024 Pneumococcal Vaccine: 65+ Years Completed 01/11/2018, 02/12/2017 Meningococcal Vaccine Aged Out No chuy ally eligible based on patient's age to complete this topic RSV Immunizations Under 20 Months Aged Out No longer eligible based on patient's age to complete this topic Medical Devices Implanted Type Area Research Project Manager Device Identifier Shelf Expiration Date Model / Serial / Lot Iol Michele [id number] - [id number] Implanted:Qty: 1 on 05/01/2024 by Addy Wright MD at [facility] Lens Left: Eye [employer] 06/03/2027 [id number] / [id number] / [place] [address] MEDICARE [facility] Care Teams Keeper Head Relationship Specialty Start Date End Date Katlin Martinez NP [address] [place] [phone] PCP - General NURSE PRACTITIONER 04/24/24
--- OUTSIDE RECORDS SUMMARY | 2024-08-06 17:33 | XMS_ITS | Encounter Summary ---
Author Organization [facility] Healthcare Address [address] [place] [address] Care Team Providers Care Public Relations Director Name Role Phone Paula Robles ADVENTURE CHALLENGE INSTRUCTOR Primary Care Provider + Addy Mathur MD PhD Unavailable [phone] Reason for Referral * MRI/CAT/PET Scan (Routine) - Closed Specialty Diagnoses / Procedures Referred By Alan bangura Referred To Contact Radiology Diagnoses Malignant neoplasm of upper lobe, right bronchus or lung (HCC) Procedures CT abdomen with contrast Zeeshan Rain MD Phone: tel: fax: [address] [phone] Referral ID Status Reason Start Date Expiration Date Visits Re quested Visits Authorized [id number] Closed 07/20/2022 08/19/2023 1 1 [facility] Reason for Visit * MRI/CAT/PET Scan (Routine) - Closed Specialty Diagnoses / Procedures Referred By Alan bangura Referred To Contact Radiology Diagnoses Malignant neoplasm of upper lobe, right bronchus or lung (HCC) Procedures CT abdomen with contrast Zeeshan Rain MD Phone: tel: fax: [address] [phone] Referral ID Status Reason Start Date Expiration Date Visits Re quested Visits Authorized [id number] Closed 07/20/2022 08/19/2023 1 1 Encounter Details Date Type Department Care Team (Latest Contact Info) Description 09/14/2022 10:46 AM COOPER APPRENTICE - 09/14/2022 11:59 PM COOPER APPRENTICE Hospital Encounter [facility] [address] [place] [id number] Malignant neoplasm of upper lobe, right bronchus or lung (HCC) Discharge Disposition: Discharge to home or self care Social History Tobacco Use Types Packs/Day Years Used Date Smoking Tobacco: Former Cigarettes Smokeless Tobacco: Never Comments No Sex and Gender Information Value Date Recorded Sex Assigned at Not on file Legal Sex Female 1:02 AM COOPER APPRENTICE Gender Identity Not on file Sexual Orientation Not on file documented as of this encounter Medications at Time of Discharge fluticasone-umeclid in-vilanter (TRELEGY ELLIPTA) 100-62.5-25 mcg inhaler Inhale 1 puff daily furosemide (LASIX) 40 mg tablet TK 1 T PO QD 1 12/13/2017 ipratropium-albuter ol (DUO-NEB) 0.5-2.5 mg/3 mL nebulizer solutionIndications :Chronic Obstructive Pulmonary Disease with Bronchospasms 4 gm mist. inhal loratadine (CLARITIN) 10 mg tablet TK 1 T PO QAM 0 12/14/2017 montelukast (SINGULAIR) 10 mg tablet TK 1 T PO D 2 01/28/2018 multivitamin tabletIndications:V itamin Deficiency Prevention daily. simvastatin (ZOCOR) 20 mg tablet TK 1 T PO HS 0 12/14/2017 ADVAIR DISKUS 250-50 mcg/dose diskus inhaler INL 1 PUFF PO TWICE DAILY. RM AFTER U 5 01/11/2018 3 albuterol HFA (PROVENTIL HFA,VENTOLIN HFA,PROAIR HFA) 90 mcg/actuation inhaler every 4 hours. 3 COMBIVENT RESPIMAT 20-100 mcg/actuation inhalerIndications: Chronic Obstructive Pulmonary Disease with Bronchospasms INL 1 PUFF PO QID 5 01/11/2018 3 cyanocobalamin (Vitamin B-12) 1,000 mcg tablet daily 03/08/20 2 3 fluticasone (FLONASE) 50 mcg/actuation nasal spray daily. 3 LORazepam (ATIVAN) 0.5 mg tablet 1 tab po q 6-8 hours prn nausea. Try this medication third 05/24/2017 3 metroNIDAZOLE 0.75 % lotion GRETEL EXT AA QD 0 10/14/2018 3 ondansetron (ZOFRAN) 8 mg tablet TAKE 1 TABLET EVERY 8 HOURS PRN nausea,try this medication FIRST 05/24/2017 3 oxyCODONE-acetamino phen (PERCOCET) 5-325 mg per tablet oxycodone-aceta minophen 5 mg-325 mg tablet 3 potassium chloride ER (potassium chloride ER) 20 mEq CR tablet Take 1 tablet (20 mEq total) by mouth 2 (two) times a day 60 tablet 3 12/10/2021 3 predniSONE (DELTASONE) 10 mg tablet pack prednisone 10 mg tablets in a dose pack Take by oral route. day 1: 60 mg, day2: 50mg, day3:40mg, day4: 30mg, day5:20mg, day6:10 then finished 3 predniSONE (DELTASONE) 20 mg tablet TK 1 T PO BID FOR 7 DAYS 0 01/11/2018 3 prochlorperazine (COMPAZINE) 10 mg tablet 1 tab po q 6-8 hrs prn nausea. Try this medication second 05/24/2017 3 traMADoL (ULTRAM) 50 mg tablet tramadol 50 mg tablet TAKE 1 TABLET BY MOUTH TWICE DAILY NEEDED FOR KNEE PAIN 3 documented as of this encounter Discharge Disposition Disposition Code Departure Means Destination Discharge to home or self care documented in this encounter Plan of Treatment Not on file documented as of this encounter Procedures Procedure Name Priority Date/Time Associated Diagnosis Comments CT ABDOMEN W CONTRAST Schedule Routine, Read Routine (OP Routine) 09/14/2022 11:05 AM COOPER APPRENTICE Malignant neoplasm of upper lobe, right bronchus or lung (HCC) POCT CREATININE FOR CONTRAST EVALUATION Routine 09/14/2022 11:01 AM COOPER APPRENTICE documented in this encounter Results * CT abdomen with contrast (09/14/2022 11:05 AM COOPER APPRENTICE) Anatomical Region Laterality Modality Body N/A Computed Tomogra phy 09/15/2022 11:0 5 AM COOPER APPRENTICE Narrative 09/15/2022 11:16 AM COOPER APPRENTICE EXAM DESCRIPTION: ?? CT ABDOMEN W CONTRAST REASON FOR STUDY: ?? eval fo r mets; pain ?? Dx with lung cancer in 2017. R/o mets. Pt denies any pain or complaints. Hx of . ?? TECHNIQUE: CT scan of the abdomen performed with intravenous and ?? without ?? oral contrast using helical scanning technique with dynamic intravenous contrast injection. Reconstructed coronal and sagittal MPR images reviewed. All images stored on PACS. ??Automated exposure control was used as a dose optimization technique for this examination. CONTRAST TYPE/DOSE: ?? 100mL of IOVERSOL 350 MG IODINE/ML INTRAVENOUS SOLUTION ?? injected via ?? intravenous COMPARISON: ?? Prior body imaging, most recent CT chest abdomen and pelvis 07/17/2022 REFERENCE: Unless otherwise specified, no follow-up imaging is recommended for incidental renal and adrenal lesions per consensus recommendations based on imaging criteria. Further lab evaluation could be pursued based on clinical findings. Management of the Incidental Renal Mass on CT: A White Paper of the ACR Incidental Findings Committee. J Am Tushar Radiol. 2018 Sep;15(2):264-273. Management of Incidental Adrenal Masses: A White Paper of the ACR Incidental Findings Committee. J Am Tushar Radiol. 2017 Mar;14(8):5292-0373. FINDINGS: LOWER CHEST: ?? Bibasilar scarring appears similar to the prior examination. ??No pleural or pericardial effusion. LIVER: ?? Normal size. ??Undulating liver contour is chronically unchanged. ?? Mild diffuse steatosis. ??Patent and normally enhancing portal venous system. ?? No focal liver lesions seen. GALLBLADDER: ?? Cholelithiasis. ??No inflammatory changes. BILE DUCTS: ?? No intrahepatic or extrahepatic biliary dilation. SPLEEN: ?? Normal size. ??No focal lesions. PANCREAS: ?Normal parenchymal bulk, morphology, and enhancement pattern. No duct dilation. No inflammatory change. ?? ADRENALS: ?? Normal. KIDNEYS/URINARY TRACT: ?? Symmetric and normal renal enhancement pattern. ??1.2 cm intermediate density lesion at the medial left mid kidney is chronically unchanged, compatible with a cyst with some proteinaceous content. ??No hydronephrosis or hydroureter. ??No stones are seen. ?? GI: ?? Stomach appears unremarkable. ??Visualized loops of small and large bowel are not obstructed. ??Appendix is incompletely visualized, but the portions included in the field of view are normal. ??Mild colonic diverticulosis. PERITONEUM: ?? No ascites or free air. ??The fat stranding in the right upper quadrant seen on the prior exam has nearly completely resolved, with trace residual (series 2, image 74), almost certainly a resolving transient process. A hypodense nodule adjacent to the transverse colon measuring 1.2 x 1.2 cm (series 2, image 59) appears similar to the most recent prior exam, though has been slowly increasing from earlier imaging. RETROPERITONEUM: ?? No mass or adenopathy. VASCULATURE: ?? No abdominal aortic aneurysm. ?? Moderate to marked atherosclerotic calcifications. MUSCULOSKELETAL: ?? No acute fracture. ??No suspicious osseous lesion. ??Fused block vertebra at L4-5. ??Mild disc degeneration in the lumbar spine. OTHER: ?? Small fat containing supraumbilical ventral wall hernia. ??Known larger fat containing umbilical hernia is not included in the field of view. IMPRESSION: ?? 1. ?? The area of fat stranding in the right upper quadrant of the abdomen noted on the most recent prior comparison examination has significantly decreased, presumed to reflect a transient inflammatory process. 2. ?? A 1.2 cm pericolonic nodule in the left upper quadrant adjacent to the transverse colon is again seen, not substantially changed from July 2022, but mildly increased from earlier imaging. ??Continued close attention on future imaging recommended. 3. ?? Scarring and treatment changes at the right lung base are incompletely evaluated, but appear grossly unchanged. 4. ?? Additional incidental CT findings including cholelithiasis, hepatic steatosis, and colonic diverticulosis. THIS IS AN ELECTRONICALLY VERIFIED FINAL REPORT 09/15/2022 11:16 AM - Electronically signed by ??Jose Lockett M.D. BC: BLANCA D: ??09/15/2022 11:16 AM T: ??09/15/2022 11:16 AM Report ID: [id number] Reading Location: ??[id number] Procedure Note Jose Lockett MD - 09/15/2022 EXAM DESCRIPTION: CT ABDOMEN W CONTRAST REASON FOR STUDY: eval fo r mets; pain Dx with lung cancer in 2017. R/o mets. Pt denies any pain or complaints.Hx of . TECHNIQUE: CT scan of the abdomen performed with intravenous and without oral contrast using helical scanning technique with dynamic intravenous contrast injection. Reconstructed coronal and sagittal MPR imagesreviewed. All images stored on PACS. Automated exposure control was used as a dose optimization technique for this examination. CONTRAST TYPE/DOSE: 100mL of IOVERSOL 350 MG IODINE/ML INTRAVENOUSSOLUTION injected via intravenous COMPARISON: Prior body imaging, most recent CT chest abdomen and pelvis 07/17/2022 REFERENCE: Unless otherwise specified, no follow-up imaging is recommendedfor incidental renal and adrenal lesions per consensus recommendations basedon imaging criteria. Further lab evaluation could be pursued based onclinical findings. Management of the Incidental Renal Mass on CT: A White Paper of the ACR Incidental Findings Committee. J Am Tushar Radiol. 2018 Sep;15(2):264-273. Management of Incidental Adrenal Masses: A White Paper of the ACRIncidental Findings Committee. J Am Tushar Radiol. 2017 Mar;14(8):5596-4995. FINDINGS: LOWER CHEST: Bibasilar scarring appears similar to the prior examination. No pleural or pericardial effusion. LIVER: Normal size. Undulating liver contour is chronically unchanged. Mild diffuse steatosis. Patent and normally enhancing portal venoussystem. No focal liver lesions seen. GALLBLADDER: Cholelithiasis. No inflammatory changes. BILE DUCTS: No intrahepatic or extrahepatic biliary dilation. SPLEEN: Normal size. No focal lesions. PANCREAS: Normal parenchymal bulk, morphology, and enhancement pattern.No duct dilation. No inflammatory change. ADRENALS: Normal. KIDNEYS/URINARY TRACT: Symmetric and normal renal enhancement pattern.1.2 cm intermediate density lesion at the medial left mid kidney ischronically unchanged, compatible with a cyst with some proteinaceous content. No hydronephrosis or hydroureter. No stones are seen. GI: Stomach appears unremarkable. Visualized loops of small and largebowel are not obstructed. Appendix is incompletely visualized, but the portions included in the field of view are normal. Mild colonic diverticulosis. PERITONEUM: No ascites or free air. The fat stranding in the rightupper quadrant seen on the prior exam has nearly completely resolved, with trace residual (series 2, image 74), almost certainly a resolving transientprocess. A hypodense nodule adjacent to the transverse colon measuring 1.2 x 1.2cm (series 2, image 59) appears similar to the most recent prior exam, thoughhas been slowly increasing from earlier imaging. RETROPERITONEUM: No mass or adenopathy. VASCULATURE: No abdominal aortic aneurysm. Moderate to marked atherosclerotic calcifications. MUSCULOSKELETAL: No acute fracture. No suspicious osseous lesion.Fused block vertebra at L4-5. Mild disc degeneration in the lumbar spine. OTHER: Small fat containing supraumbilical ventral wall hernia. Known larger fat containing umbilical hernia is not included in the field ofview. IMPRESSION: 1. The area of fat stranding in the right upper quadrant of the abdomen noted on the most recent prior comparison examination has significantly decreased, presumed to reflect a transient inflammatory process. 2. A 1.2 cm pericolonic nodule in the left upper quadrant adjacent tothe transverse colon is again seen, not substantially changed from July2022, but mildly increased from earlier imaging. Continued close attention on future imaging recommended. 3. Scarring and treatment changes at the right lung base areincompletely evaluated, but appear grossly unchanged. 4. Additional incidental CT findings including cholelithiasis, hepatic steatosis, and colonic diverticulosis. THIS IS AN ELECTRONICALLY VERIFIED FINAL REPORT 09/15/2022 11:16 AM - Electronically signed by Jose Lockett M.D. BC: BLANCA Report ID: [id number] Reading Location: [id number] Zeeshan Rain MD IM CT PROCEDURES Sada l Result * POCT creatinine for contrast evaluation (09/14/2022 11:01 AM COOPER APPRENTICE) Creatinine POC 0.70 0.60 - 1.10 mg/dL ARSENIO CALVIN Comment:Testing performed by : [facility], [address] [place] [address]., [id number] Blood 09/14/2022 11:0 1 AM COOPER APPRENTICE 09/14/2022 11:01 AM COOPER APPRENTICE Zeeshan Rain MD POINT OF CARE TEST ORD ERABLES Final Result ARSENIO [address] [facility] Department [place] [address] documented in this encounter Visit Diagnoses Diagnosis Malignant neoplasm of upper lobe, right bronchus or lung (HCC) documented in this encounter Administered Medications Inactive Administered Medications - up to 3 most recent administrations Medication Order MAR Action Action Date Dose Rate Site ioversoL (OPTIRAY 350) injection 100 mL 100 mL, intravenous, Once in imaging, contrast, Starting on Wed09/14/22 at 1100, For 1 dose Contrast Given 09/14/2022 11:08 AM COOPER APPRENTICE 100 mL Left Hand documented in this encounter Orders Medications Ordered That Adam ht Not Have Been Administered Count Last Ordered Date First Ordered Date ioversoL (OPTIRAY 350) injection 100 mL 1 0 09/14/2022 documented in this encounter Care Teams Public Relations Director Relationship Specialty Start Date End Date Paula Robles NP PCP - General 05/31/17 Addy Mathur MD PhD [address] [place] [address] Radiation Oncologist Radiation Oncology 03/10/18 documented as of this encounter
--- OUTSIDE RECORDS SUMMARY | 2024-08-06 17:33 | XMS_ITS | Encounter Summary ---
Author Organization [facility] Address [address] [place] [address] Phone Care Team Providers Care Video Coordinator Name Role Phone Paula Robles DATABASES COMPUTER CONSULTANT Primary Care Provider + Addy Mathur MD PhD Unavailable [phone] Ama Zavaleta MD Unavailable Encounter Details Date Type Department Care Team (Late st Contact Info) Description 03/08/2023 10:00 AM CDT Lab [facility] [address] [facility] 7th [place] [address] [place] [phone] Malignant neoplasm of upper lobe, right bronchus or lung (HCC) Social History Tobacco Use Types Packs/Day Years Used Date Smoking Tobacco: Never Assessed Smokeless Tobacco: Never Comments No Sex and Gender Information Value Date Recorded Sex Assigned at Not on file Legal Sex Female 1:02 AM EMERGENCY SERVICES DISPATCHER Gender Identity Not on file Sexual Orientation Not on file documented as of this encounter Plan of Treatment Not on file documented as of this encounter Visit Diagnoses Diagnosis Malignant neoplasm of upper lobe, right bronchus or lung (HCC) documented in this encounter Orders Appointment Requests Count Last Ordered Date Fi rst Ordered Date ONCBCN LAB APPOINTMENT 1 03/08/2023 documented in this encounter Care Teams Video Coordinator Relationship Specialty Start Date End Date Paula Robles NP PCP - General 05/31/17 Addy Mathur MD PhD [address] [place] [address] Radiation Oncologist Radiation Oncology 03/10/18 Ama Zavaleta MD [address] [facility] [address] [place] [id number] Medical Oncologist/Traffic Attendant Medical Oncology 10/20/22 documented as of this encounter
--- OUTSIDE RECORDS SUMMARY | 2024-08-06 17:33 | XMS_ITS | Encounter Summary ---
Author Organization [facility] Address [address] [place] [address] Care Team Providers Care Parking Enforcement Officer Name Role Phone Paula Robles OPERATIONS INSPECTOR Primary Care Provider + Addy Mathur MD PhD Unavailable [phone] Ama Zavaleta MD Unavailable Katlin Martinez NP Unavailable [phone] Encounter Details Date Type Department Care Team (Late st Contact Info) Description 03/06/2024 10:00 AM CDT Lab [facility] Advanced Medicine 7th [place] [address] Malignant neoplasm of upper lobe, right bronchus or lung (HCC) Social History Tobacco Use Types Packs/Day Years Used Date Smoking Tobacco: Unknown Smokeless Tobacco: Never Comments No Sex and Gender Information Value Date Recorded Sex Assigned at Not on file Legal Sex Female 1:02 AM DIRECTOR SHIP Gender Identity Not on file Sexual Orientation Not on file documented as of this encounter Plan of Treatment Not on file documented as of this encounter Procedures Procedure Name Priority Date/Time Associated Diagnosis Comments EGFR STAT 03/06/2024 10:08 AM CDT Malignant neoplasm of upper lobe, right bronchus or lung (HCC) DIFFERENTIAL AUTO Routine 03/06/2024 10: 08 AM CDT Malignant neoplasm of upper lobe, right bronchus or lung (HCC) THYROID FUNCTION CASCADE STAT 03/06/2024 10:08 AM CDT Malignant neoplasm of upper lobe, right bronchus or lung (HCC) CBC WITH AUTO DIFFERENTIAL Routine 03/06/2024 10:08 AM CDT Malignant neoplasm of upper lobe, right bronchus or lung (HCC) T4, FREE STAT 03/06/2024 10:08 AM CDT Malignant neoplasm of upper lobe, right bronchus or lung (HCC) LIPID PANEL Routine 03/06/2024 10:08 AM CDT Malignant neoplasm of upper lobe, right bronchus or lung (HCC) COMPREHENSIVE METABOLIC PANEL STAT 03/06/2024 10:08 AM CDT Malignant neoplasm of upper lobe, right bronchus or lung (HCC) documented in this encounter Results * T4, free (03/06/2024 10:08 AM CDT) Free T4 1.27 0.90 - 1.70 ng/dL Blood 03/06/2024 10:0 8 AM CDT 03/06/2024 11:01 AM CDT Narrative [facility] - 03/06/2024 12:00 PM CDT This test was reflexed from a TSH result. us Ama Zavaleta MD LAB BLOOD ORDERABLES Edited Result - Final [facility] Department [place] [address] * eGFR (03/06/2024 10:08 AM CDT) eGFR 88 >=60 mL/min/1. 73 m2 Comment: Interpretive Data Reference Interval Normal ?>/= 90 mL/min/1.73m2 Mildly decreased* ? 60 - 89 mL/min/1.73m2 Mildly to moderately decreased ?45 - 59 mL/min/1.73m2 Moderately to severely decreased ??30 - 44 mL/min/1.73m2 Severely decreased ?15 - 29 mL/min/1.73m2 Kidney Failure ?< 15 ??mL/min/1.73m2 *Relative to young adult level Estimated glomerular filtration rate is determined by the 2020 CKD-EPI equation recommended by the National Kidney Foundation (A Unifying Approach to GFR Estimation: Recommendations of the NKF-ASK Task Force on Reassessing the Inclusion of Race in Diagnosing Kidney Disease, JASN 2020). The CKD-EPI equation should not be used for patients with unstable renal function and has not been validated in children and those over 70. Current interpretive data was last reviewed 2021. Testing performed by: [facility], [address] [place] [phone] Blood 03/06/2024 10:0 8 AM CDT 03/06/2024 10:09 AM CDT Ama Zavaleta MD LAB BLOOD ORDERABLES Final Result [facility] Department of Laboratories [place], [place] [id number] * Differential, auto (03/06/2024 10:08 AM CDT) Neutrophil abs 3.8 1.5 - 6.6 K/cumm Comment:Testing performed by : [facility], [address] [place] [phone] Lymphocyte abs 2.0 1.2 - 3.3 K/cumm [facility]LLA Comment:Testing performed by : [facility], [address] [place] [phone] Monocyte abs 0.4 0.2 - 1.2 K/cumm [facility] Comment:Testing performed by : [facility], [address] [place] [phone] Eosinophil abs 0.2 0.0 - 0.5 K/cumm CERNER BJ Comment:Testing performed by : [facility], [address] [place] [phone] Basophil abs 0.1 0.0 - 0.2 K/cumm CERNER BJ Comment:Testing performed by : [facility], [address] [place] [phone] Neutrophil pct 58.4 % CERNER BJ Comment: Interpretive Data Percent cell count reference ranges are not reported, since discordance with absolute values may lead to misinterpretation of CBC data. Current Interpretive Data was last revised on 2017. Testing performed by: [facility], [address] [place] [phone] Lymphocyte pct 31.5 % CERNER BJ Comment: Interpretive Data Percent cell count reference ranges are not reported, since discordance with absolute values may lead to misinterpretation of CBC data. Current Interpretive Data was last revised on 2017. Testing performed by: [facility], [address] [place] [phone] Monocyte pct 6.1 % CERNER BJ Comment:Testing performed by : [facility], [address] [place] [phone] Eosinophil pct 2.8 % CERNER BJ Comment:Testing performed by : [address] [phone] Basophil pct 1.2 % CERNER BJ Comment:Testing performed by : [facility], [address] [place] [phone] Blood 03/06/2024 10:0 8 AM CDT 03/06/2024 10:09 AM CDT us Ama Zavaleta MD LAB BLOOD ORDERABLES Final Result [facility] [place] [address] * (ABNORMAL) Thyroid Function Belva (03/06/2024 10:08 AM CDT) TSH 4.94(H) 0.30 - 4.20 mcIUnit/mL Blood 03/06/2024 10:0 8 AM CDT 03/06/2024 10:57 AM CDT Ama Zavaleta MD LAB BLOOD ORDERABLES Final Result [facility] [place] [address] * Lipid panel (03/06/2024 10:08 AM CDT) Cholesterol 193 30 - 199 mg/dL Comment: Interpretive Data Ages < or = 19 years ??Acceptable: ? <170 mg/dL ??Borderline high: ??170-199 mg/dL ??High: ? >or= 200 mg/dL Ages > or = 20 years ??Desirable: ?<200 mg/dL ??Borderline high: ??200-239 mg/dL ??High: ? >or= 240 mg/dL Literature References: 1. Expert Panel on Integrated Guidelines for Cardiovascular Health and Risk Reduction in Children and Adolescents. Pediatrics 2011;128:S213 2. NCEP Expert Panel. Circulation 2004;110:227 Current Interpretive Data was last revised on 2018. Triglycerides 149 <=149 mg/dL [facility] Comment: Interpretive Data Ages < or = 9 years ??Acceptable: ? <75 mg/dL ??Borderline high: ??75-99 mg/dL ??High: ? >or= 100 mg/dL Ages 10 to 20 years ??Acceptable: ? <90 mg/dL ??Borderline high: ??90-129 mg/dL ??High: ? >or= 130 mg/dL Ages > or = 20 years ??Desirable: ?<150 mg/dL ??Borderline high: ??150-199 mg/dL ??High: ? 200-499 mg/dL ?Very high: ?? >or= 499 mg/dL Literature References: 1. Expert Panel on Integrated Guidelines for Cardiovascular Health and Risk Reduction in Children and Adolescents. Pediatrics 2011;128:S213 2. NCEP Expert Panel. Circulation 2004;110:227 Current Interpretive Data was last revised on 2018. HDL 61 >=40 mg/dL [facility] Comment: Interpretive Data Ages < or = 19 years ??Acceptable: ? >45 mg/dL ??Borderline low: ?? 40-45 mg/dL ??Low: ? <40 mg/dL Ages > or = 20 years ??Desirable: ?>or= 60 mg/dL ??Low: ? <40 mg/dL Literature References: 1. Expert Panel on Integrated Guidelines for Cardiovascular Health and Risk Reduction in Children and Adolescents. Pediatrics 2011;128:S213 2. NCEP Expert Panel. Circulation 2004;110:227 Current Interpretive Data was last revised on 2018. LDL, calculated 102 <=129 mg/dL [facility] Comment: Interpretive Data Ages < or = 19 years ??Acceptable: ? <110 mg/dL ??Borderline high: ??110-129 mg/dL ??High: ?>or= 130 mg/dL Ages > or = 20 years ??Optimal: ? <100 mg/dL ??Near optimal: ?100-129 mg/dL ??Borderline high: ?? 130-159 mg/dL ??High: ?>160 mg/dL Literature References: 1. Expert Panel on Integrated Guidelines for Cardiovascular Health and Risk Reduction in Children and Adolescents. Pediatrics 2011;128:S213 2. NCEP Expert Panel. Circulation 2004;110:227 Current Interpretive Data was last revised on 2018. Non-HDL Cholesterol 132 mg/dL [facility] Comment: Interpretive Data Ages < or = 19 years ??Acceptable: ?<120 mg/dL ??Borderline high: ??120-144 mg/dL ??High: ?>145 mg/dL Ages > or = 20 years ??When triglycerides are >200 mg/dL, Non-HDL cholesterol is a secondary target of ? therapy with treatment goals that are 30 mg/dL greater than the LDL cholesterol target. ? Literature References: 1. Expert Panel on Integrated Guidelines for Cardiovascular Health and Risk Reduction in Children and Adolescents. Pediatrics 2011;128:S213 2. NCEP Expert Panel. Circulation 2004;110:227 Current Interpretive Data was last revised on 2018. Chol/HDL ratio 3 [facility] Blood 03/06/2024 10:0 8 AM CDT 03/06/2024 10:57 AM CDT Ama Zavaleta MD LAB BLOOD ORDERABLES Final Result [facility] Department [place] [address] * CBC with auto differential (03/06/2024 10:08 AM CDT) Pathologist [facility] WBC 6.4 3.8 - 9.8 K/cumm Comment:Testing performed by : [facility], [address] [place] [phone] Hgb 14.3 12.1 - 15.1 g/dL [facility] Comment:Testing performed by : [facility], [facility] [phone] Hct 41.9 36.1 - 44.3 % [facility] Comment:Testing performed by : [facility], [facility] [phone] Plt 219 140 - 440 K/cumm [facility] Comment:Testing performed by : [facility], [address] [place] [phone] MPV 7.8 6.8 - 10.4 fL [facility] Comment:Testing performed by : [facility], [address] [place] [phone] RBC 4.46 3.90 - 5.00 M/cumm ARSENIO BELLA Comment:Testing performed by : [facility], [address] [place], [place] [phone] MCV 94.0 80.0 - 97.6 fL ARSENIO BJ Comment:Testing performed by : [facility], [address] [place] [phone] MCH 32.1 26.7 - 33.7 pg [facility] Comment:Testing performed by : [facility], [address] [place] [phone] MCHC 34.2 32.7 - 35.5 g/dL A[facility] BELLA Comment:Testing performed by : [facility], [address] [place] [phone] RDW CV 13.8 11.8 - 14.6 % [facility] Comment:Testing performed by : [facility], [address] [place] [phone] NRBC abs 0.00 0.00 - 0.01 K/cumm [facility] Comment:Testing performed by : [address] [phone] Blood 03/06/2024 10:0 8 AM CDT 03/06/2024 10:09 AM CDT Ama Zavaleta MD LAB BLOOD ORDERABLES Final Result [facility] [place] [address] * (ABNORMAL) Comprehensive metabolic panel (03/06/2024 10:08 AM CDT) Sodium 139 135 - 145 mmol/L Comment:Testing performed by : [address] [phone] Potassium, pl 3.0(L) 3.3 - 4.9 mmol/L [facility] Comment:Testing performed by : [facility], [address] [place] [phone] Chloride 95(L) 97 - 110 mmol/L CERNER BJ Comment:Testing performed by : [facility], [address] [place] [phone] CO2 35(H) 22 - 32 mmol/L [facility] Comment:Testing performed by : [facility], [address] [place] [phone] Anion gap 9 2 - 15 mmol/L CERNER BJ Comment:Testing performed by : [facility], [address] [place] [phone] BUN 11 6 - 25 mg/dL CERNER BJ Comment:Testing performed by : [facility], [address] [place] [phone] Creatinine 0.72 0.60 - 1.10 mg/dL CERNER BJ Comment:Testing performed by : [facility], [address] [place] [phone] Glucose 116 70 - 199 mg/dL CERNER BJ Comment: Interpretive Data Fasting glucose >/= 126 mg/dl is diagnostic for diabetes. ?? Fasting is defined as no caloric intake for at least 8 hours. Fasting glucose between 100 mg/dl to 125 mg/dl is diagnostic of prediabetes. In a patient with classic symptoms of hyperglycemia or hyperglycemic crisis, a random glucose >/= 200 mg/dl is diagnostic for diabetes. In the absence of unequivocal hyperglycemia, results should be confirmed by repeat testing. The classification and Diagnosis of Diabetes Diabetes Care 2021; 46: S19-S40. Current interpretive data was last revised 2022. Testing performed by: [facility], [address] [place] [phone] Calcium 9.5 8.5 - 10.3 mg/dL CERNER BJ Comment:Testing performed by : [facility], [address] [place] [phone] Bilirubin, total 0.7 0.1 - 1.2 mg/dL CERNER BJ Comment:Testing performed by : [facility], [address] [place] [phone] Protein, pl 7.4 6.5 - 8.5 g/dL [facility] Comment:Testing performed by : [facility], [address] [place] [phone] Albumin 4.2 3.5 - 5.0 g/dL [facility] Comment:Testing performed by : [facility], [address] [place] [phone] Alk phos 111 40 - 130 Units/L [facility] Comment:Testing performed by : [facility], [address] [place] [phone] ALT 24 7 - 45 Units/L [facility] Comment:Testing performed by : [facility], [address] [place] [phone] AST 22 10 - 45 Units/L [facility] Comment:Testing performed by : [facility], [address] [place] [phone] Blood 03/06/2024 10:0 8 AM CDT 03/06/2024 10:09 AM CDT us Ama Zavaleta MD LAB BLOOD ORDERABLES Final Result [facility] Department of Laboratories [place], [place] [id number] documented in this encounter Visit Diagnoses Diagnosis Malignant neoplasm of upper lobe, right bronchus or lung (HCC) documented in this encounter Orders Appointment Requests Count Last Ordered Date Fi rst Ordered Date ONCBCN LAB APPOINTMENT 1 03/06/2024 documented in this encounter Care Teams Parking Enforcement Officer Relationship Specialty Start Date End Date Paula Robles NP PCP - General 05/31/17 Addy Mathur MD PhD [address] [place] [address] Radiation Oncologist Radiation Oncology 03/10/18 Ama Zavaleta MD [address] [place] [address] [address] [place], [place] [id number] Medical Oncologist/Sock Ironer Medical Oncology 10/20/22 Katlin Martinez NP [address] [place] [address] Nurse Practitioner 03/06/24 documented as of this encounter
--- OUTSIDE RECORDS SUMMARY | 2024-08-06 17:33 | XMS_ITS | Clinical Summary ---
Author Organization [facility] Address [address] [place] [phone] Care Team Providers Care Museum Educator Name Role Phone Paula Robles BEAM DYER OPERATOR Primary Care Provider + Addy Mathur MD PhD Unavailable Ama Zavaleta MD Unavailable Katlin Martinez BEAM DYER OPERATOR Unavailable [phone] Allergies Active Allergy Reactions Criticality Noted Date Comments Rosuvastatin Unknown,Other (See comments) Low 03/06 Medications furosemide (LASIX) 40 mg tablet TK 1 T PO QD 1 8 Active ipratropium-albute rol (DUO-NEB) 0.5-2.5 mg/3 mL nebulizer solutionIndication s:Chronic Obstructive Pulmonary Disease with Bronchospasms 4 gm mist. inhal Active loratadine (CLARITIN) 10 mg tablet TK 1 T PO QAM 0 8 Active montelukast (SINGULAIR) 10 mg tablet TK 1 T PO D 2 8 Active multivitamin tabletIndications: Vitamin Deficiency Prevention daily. Active simvastatin (ZOCOR) 20 mg tablet TK 1 T PO HS 0 8 Active fluticasone-umecli din-vilanter (TRELEGY ELLIPTA) 100-62.5-25 mcg inhaler Inhale 1 puff daily Active potassium chloride ER 20 mEq CR tablet TAKE 1 TABLET BY MOUTH TWICE DAILY 60 tablet 3 4 Active Active Problems Problem Noted Date Diagnosed Date Peripheral vascular disease 03/06/2024 Obesity, morbid 03/06/2024 Acute sinusitis 03/18/2020 Chronic obstructive lung disease 03/18/2020 Chronic liver disease 03/18/2020 Assessment & Plan (03/18/2020 12:06 PM CDT): This is concern for chronic liver disease due to recent imaging findings. She has a few risk factors for cirrhosis including BMI for NAFLD/FRITZ vs. Hepatic congestion. She has a remote chart history of pulmonary hypertension. Her exam today was significant for a mild S3 vs. S4, and she has lower extremity edema. Fortunately, she has normal liver chemistries and no clinical exam signs of advanced disease. We will start our evaluation by obtain a TTE. Pulmonary hypertension 01/17/2019 Diverticular disease of colon 09/16/2018 Umbilical hernia 01/11/2018 Malignant neoplasm of upper lobe, right bronchus or lung 05/24/2017 Cancer Staging:Clinical stage from 03/10/2018:Stage IIIA(T2a, N2, M0) - Signed by Addy Mathur MD PhD on 03/10/2018 Former smoker 05/24/2017 Pulmonary emphysema 04/28/2017 Encounters Date Type Department Care Team Description 08/06/2024 Hospital Encounter [facility] ADMIT [address] [place] [address] Julia Lopez MD PhD 08/04/2024 Orders Only [facility] Cardiology [address] [place] [address] Clarence Alvarez MD from Last 3 Months Immunizations Name Administration Dates Next Due Influenza, Quadrivalent, Kaylen l Culture-based MDCK, Preservative Free, Antibiotic Free, Intramuscular 07/28/2021,05/13/2020,06/26/2019,06/13,05/31/2017 Influenza, Trivalent, Preser vative Free, Intramuscular 05/31/2017,08/23/2013 Moderna SARS-CoV-2 Monovalen t Vaccination (12+ YRS) 10/22/2020,09/26/2020 Pneumococcal Conjugate PCV 13 02/12/2017 Pneumococcal Polysaccharide PPV23 01/11/2018 Tdap 02/03/2011 Surgical History Surgery Date Site/Laterality Comments SECTION x2 Medical History Medical History Date Comments Cancer (CMS/HCC) (HCC) Family History Medical History Relation Name Comments No Known Problems Brother No Known Problems Father Alzheimer's disease Mother Cirrhosis Sister Alcohol Relation Name Status Comments Brother Father Mother Sister Social History Tobacco Use Types Packs/Day Years Used Date Smoking Tobacco: Unknown Smokeless Tobacco: Never Tobacco Cessation:Counseling Given: Not Answered Comments No Sex and Gender Information Value Date Recorded Sex Assigned at Not on file Legal Sex Female 1:02 AM STUDENT SERVICES ADVISOR Gender Identity Not on file Sexual Orientation Not on file Obstetrics History Last Filed Vital Signs Vital Sign Reading Time Taken Comments Blood Pressure 141/79 03/06/2024 10:29 AM CDT Pulse 92 03/06/2024 10:29 AM CDT Temperature 36.3 ??C (97.3 ??F) 03/06/2024 1 0:29 AM CDT Respiratory Rate 18 03/06/2024 10:2 9 AM CDT Oxygen Saturation 90% 03/06/2024 10: 29 AM CDT Inhaled Oxygen Concentration - - Weight 107.9 kg (237 lb 12.8 oz) 2023 10:29 AM CDT Height 155.1 cm (5' 1.06 ) 07/20/2022 1 0:40 AM STUDENT SERVICES ADVISOR Body Mass Index 44.84 07/20/2022 10:40 AM STUDENT SERVICES ADVISOR Plan of Treatment Health Maintenance Due Date Last Done Comments Colon Cancer Screening-Colonoscopy 1950 Depression Screening 1950 Fall Risk Assessment 1950 Hepatitis C Screening 1950 Osteoporosis Screening-Bone Density Scan 1949 Hepatitis B Screening 1967 Zoster Vaccine (1 of 2) 1999 Well Visit 65+ 2014 DTaP/Tdap/Td Vaccine (2 - Td or Tdap) 02/03/2021 02/03/2011 Covid-19 Vaccine (3 - 2023-2 5 season) 2024 10/22/2020, 09/26/2020 Influenza Vaccine (#1) 2024 , 05/13/2020, 06/26/2019, Additional history exists Pneumococcal vaccine 65+ Completed 01/11/2018, 02/2017 Procedures Procedure Name Priority Date/Time Associated Diagnosis Comments CARDIOLOGY DOCUMENT SCAN Routine 08/03/2024 5:51 PM STUDENT SERVICES ADVISOR from Last 3 Months Results * Cardiology Document Scan (08/03/2024 5:51 PM STUDENT SERVICES ADVISOR) Anatomical Region Laterality Modality Other Clarence Alvarez MD CV CARDIAC SERVICES PROCEDURES F inal Result from Last 3 Months Insurance MEDICARE [facility] MEDICARE [facility] CHOICE PLUS [facility] HMO/PPO Address: [address] [address] [place] [address] MEDICARE [place] [address] [facility] CHOICE PLUS [facility] H[facility]/PPO Address: [address] [address] [place] [address] [facility] MEDICARE MEDICARE [facility] Member Subscriber Plan / Payer (Ef fective 2014-Present) Name:Gaby Morgan Relation to Subscriber:Self Name:Gaby Morgan Payer ID:[id number] (NAIC) Group ID:[id number] Type:BC ALLIANCE Address: [facility] [id number] [place] [id number] Care Teams Museum Educator Relationship Specialty Start Date End Date Paula Robles NP PCP - General 05/31/17 Addy Mathur MD PhD [address] [place] [address] Radiation Oncologist Radiation Oncology 03/10/18 Ama Zavaleta MD [address] [facility] [address] [place] [address] Medical Oncologist/Carpenters Supervisor Medical Oncology 10/20/22 Katlin Martinez NP [address] [facility] DE[place] [address] Nurse Practitioner 03/06/24
--- OUTSIDE RECORDS SUMMARY | 2024-08-06 17:33 | XMS_ITS | Encounter Summary ---
Author Organization [facility] Healthcare Address [address] [place] [address] Care Team Providers Care Mortgage Sales Manager Name Role Phone TravisPaula Eleni HEAVY FORGER HELPER Primary Care Provider + Addy Mathur MD PhD Unavailable + [phone] Ama Zavaleta MD Unavailable Reason for Referral * Diagnostic Imaging (Routine) - Closed Specialty Diagnoses / Procedures Referred By Alan bangura Referred To Contact Radiology Diagnoses Malignant neoplasm of upper lobe, right bronchus or lung (HCC) Procedures CT Chest Abdomen Pelvis W Contrast Zeeshan Rain MD Phone: tel: fax: [address] [phone] Referral ID Status Reason Start Date Expiration Date Visits Re quested Visits Authorized [id number] Closed 07/20/2022 08/19/2023 1 1 Reason for Visit * Diagnostic Imaging (Routine) - Closed Specialty Diagnoses / Procedures Referred By Alan bangura Referred To Contact Radiology Diagnoses Malignant neoplasm of upper lobe, right bronchus or lung (HCC) Procedures CT Chest Abdomen Pelvis W Contrast Zeeshan Rain MD Phone: tel: fax: [address] [phone] Referral ID Status Reason Start Date Expiration Date Visits Re quested Visits Authorized [id number] Closed 07/20/2022 08/19/2023 1 1 Encounter Details Date Type Department Care Team (Latest Contact Info) Description 03/05/2023 10:33 AM CDT - 03/05/2023 11:59 PM CDT Hospital Encounter [facility] [place] [address] [place] [address] Malignant neoplasm of upper lobe, right bronchus or lung (HCC) Discharge Disposition: Discharge to home or self care Social History Tobacco Use Types Packs/Day Years Used Date Smoking Tobacco: Former Cigarettes Smokeless Tobacco: Never Comments No Sex and Gender Information Value Date Recorded Sex Assigned at Not on file 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 Gender Identity Not on file Sexual Orientation [...] mg-325 mg tablet 3 potassium chloride ER 20 mEq CR tablet Take 1 tablet (20 mEq total) by mouth 2 (two) times a day 60 tablet 3 10/22/2022 4 predniSONE (DELTASONE) 10 mg tablet pack prednisone [...] Name Priority Date/Time Associated Diagnosis Comments CT CHEST ABDOMEN PELVIS W CONTRAST Schedule Routine, Read Routine (OP Routine) 03/05/2023 11:08 AM CDT Malignant neoplasm of upper lobe, right bronchus or lung (HCC) POCT CREATININE FOR CONTRAST EVALUATION Routine 03/05/2023 10:57 AM CDT documented in this encounter Results * CT Chest Abdomen Pelvis W Contrast (03/05/2023 11:08 AM CDT) Anatomical Region Laterality Modality Body N/A Computed Tomogra phy 03/08/2023 11:2 3 AM CDT Narrative 03/08/2023 11:55 AM CDT EXAM DESCRIPTION: CT CHEST ABDOMEN PELVIS W CONTRAST REASON FOR STUDY: eval for mets ?? Dx with lung cancer in 2017. ??No sx hx. ??Eval for mets ?? 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 Tumor specimen demonstrates CD56, synaptophysin, cytokeratin, and TTF positivity. ?? TREATMENT: 1. ?? Concurrent chemoradiation with carboplatin and etoposide with radiation from 06/21/2017 to 08/03/2017, and chemotherapy from 05/28/2017 to 08/05/2017. 2. ?? Prophylactic whole-brain radiation in 10 fractions from 09/13/2017 to 09/24/2017. TECHNIQUE: CT scan of the chest, abdomen, and pelvis performed with intravenous and ??without ??oral contrast using helical scanning technique with dynamic intravenous contrast injection. Reconstructed coronal and sagittal MPR images reviewed. All images stored on PACS. Automated exposure control was used as a dose optimization technique for this examination. CONTRAST TYPE/DOSE: 100mL of IOVERSOL 350 MG IODINE/ML INTRAVENOUS SYRINGE ?? injected via ?? intravenous COMPARISON: CT abdomen 09/14/2022. ??CT chest abdomen pelvis 07/17/2022, 01/23/2022 and 07/25/2021 REFERENCE: Per ACR white paper recommendations, unless otherwise specified no follow-up imaging is recommended for incidental renal and adrenal lesions per consensus recommendations based on imaging criteria. Further lab evaluation could be pursued based on clinical findings. FINDINGS: CHEST LUNGS: ?? There is right lung volume loss, with paramediastinal fibrosis in the right upper lobe and internal air bronchograms extending towards the right hilum, stable compared to prior exams. 3 mm nodule (3:24) left upper lobe, similar to prior exam. The previously described 2 mm left upper lobe nodule not definitely seen on the current exam. No new suspicious pulmonary nodules or mass identified. PLEURA: ?? No effusion. No pneumothorax. MEDIASTINUM/ERIK: ?? No supraclavicular, mediastinum, or hilar lymphadenopathy. HEART: ?? Heart size is normal with no pericardial effusion. VASCULATURE CHEST: ?? Mild atherosclerotic calcification of the thoracic aorta. AXILLA: ?? No adenopathy. CHEST WALL: ?? No masses. ??No subcutaneous air. MUSCULOSKELETAL CHEST: ?? No suspicious osseous lytic or sclerotic lesions. ABDOMEN/PELVIS LIVER: ?? Diffuse hepatic steatosis. ??Normal in size. GALLBLADDER: ?? Stones. No wall thickening or pericholecystic fluid BILE DUCTS: ?? No intrahepatic or extrahepatic ductal dilatation. SPLEEN: ?? Normal size. ??No focal lesions. PANCREAS: ?? No identified cystic or solid masses. No significant calcifications. No adjacent inflammation or peripancreatic fluid collections. Pancreatic duct not dilated. ?? ADRENALS: ?? Normal. KIDNEYS/URINARY TRACT: ?? Symmetric enhancement. ??No hydronephrosis or hydroureter. ??Redemonstrated 12 mm low attenuating lesion within the right kidney midzone, likely cyst. ?Urinary bladder is unremarkable. GI: ?? Colonic diverticulosis without acute diverticulitis. ??The small and large bowels are normal in caliber without wall thickening or obstruction. ?? The appendix is normal. PERITONEUM: ?? No ascites or free air. ??The fat stranding seen in the prior exam on 07/17/2022 in the right lower quadrant has resolved. ??The previously seen hypoattenuating 12 mm nodule adjacent to the distal transverse colon is not definitely seen on the current exam, and there is a punctate 1 mm nodule seen at the expected location for this nodule (6:47). RETROPERITONEUM: ?? No mass or adenopathy. REPRODUCTIVE: ?? No significant abnormality. VASCULATURE ABDOMEN: ?? Mild atherosclerotic calcification of the abdominal aorta and iliac arteries. MUSCULOSKELETAL ABDOMEN PELVIS: ?? Mild dextroscoliosis of the lumbar spine. ?? Redemonstrated punctate sclerotic lesion within T11 vertebral body, similar to prior exam back in 2020, likely bone island. ??No suspicious osseous lytic or sclerotic lesions. OTHER: ?? Fat containing umbilical hernia. IMPRESSION: -- IMPRESSION -- Posttreatment changes for the right upper lobe lung cancer, stable from prior exam. No new suspicious pulmonary nodules or mass identified. ??No pneumonia or pleural effusion. ??No lymphadenopathy in the chest. No definite CT evidence of metastatic disease in the abdomen or pelvis. Resolution of the right lower quadrant fat stranding. The previously seen hypoattenuating 12 mm nodule adjacent to the distal transverse colon is not definitely seen on the current exam, and there is a punctate 1 mm nodule seen at the expected location for this nodule. ??Continued attention on follow-up imaging recommended. The above findings were discussed with Dr. Pineda via telephone by me Dr. Hao Mena on ??03/08/2023 at ??11:49 ??central standard time. ?? THIS IS AN ELECTRONICALLY VERIFIED FINAL REPORT 03/08/2023 11:55 AM - Electronically signed by ??Hao Mena M.D. WW: OANH D: ??03/08/2023 11:55 AM T: ??03/08/2023 11:55 AM Report ID: [id number] Reading Location: ??[id number] Procedure Note Hao Mena MD PhD - 03/08/2023 EXAM DESCRIPTION: CT CHEST ABDOMEN PELVIS W CONTRAST REASON FOR STUDY: eval for mets Dx with lung cancer in 2017. No sx hx. 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 Tumor specimen [id number], synaptophysin, cytokeratin, and TTF positivity. TREATMENT: 1. Concurrent chemoradiation with carboplatin and etoposide withradiation from 06/21/2017 to 08/03/2017, and chemotherapy from 05/28/2017 to08/05/2017. 2. Prophylactic whole-brain radiation in 10 fractions from 09/13/2017 to 09/24/2017. TECHNIQUE: CT scan of the chest, abdomen, and pelvis performed with intravenous and without oral contrast using helical scanning techniquewith dynamic intravenous contrast injection. Reconstructed coronal and sagittalMPR images reviewed. All images stored on PACS. Automated exposure control was used as a dose optimization technique for this examination. CONTRAST TYPE/DOSE: 100mL of IOVERSOL 350 MG IODINE/ML INTRAVENOUS SYRINGE injected via intravenous COMPARISON: CT abdomen 09/14/2022. CT chest abdomen pelvis 07/17/2022, 01/23/2022 and 07/25/2021 REFERENCE: Per ACR white paper recommendations, unless otherwise specifiedno follow-up imaging is recommended for incidental renal and adrenal lesionsper consensus recommendations based on imaging criteria. Further labevaluation could be pursued based on clinical findings. FINDINGS: CHEST LUNGS: There is right lung volume loss, with paramediastinal fibrosis inthe right upper lobe and internal air bronchograms extending towards the right hilum, stable compared to prior exams. 3 mm nodule (3:24) left upper lobe, similar to prior exam. The previously described 2 mm left upper lobe nodule not definitely seenon the current exam. No new suspicious pulmonary nodules or mass identified. PLEURA: No effusion. No pneumothorax. MEDIASTINUM/ERIK: No supraclavicular, mediastinum, or hilarlymphadenopathy. HEART: Heart size is normal with no pericardial effusion. VASCULATURE CHEST: Mild atherosclerotic calcification of the thoracicaorta. AXILLA: No adenopathy. CHEST WALL: No masses. No subcutaneous air. MUSCULOSKELETAL CHEST: No suspicious osseous lytic or sclerotic lesions. ABDOMEN/PELVIS LIVER: Diffuse hepatic steatosis. Normal in size. GALLBLADDER: Stones. No wall thickening or pericholecystic fluid BILE DUCTS: No intrahepatic or extrahepatic ductal dilatation. SPLEEN: Normal size. No focal lesions. PANCREAS: No identified cystic or solid masses. No significant calcifications. No adjacent inflammation or peripancreatic fluidcollections. Pancreatic duct not dilated. ADRENALS: Normal. KIDNEYS/URINARY TRACT: Symmetric enhancement. No hydronephrosis or hydroureter. Redemonstrated 12 mm low attenuating lesion within the right kidney midzone, likely cyst. Urinary bladder is unremarkable. GI: Colonic diverticulosis without acute diverticulitis. The small and large bowels are normal in caliber without wall thickening or obstruction. The appendix is normal. PERITONEUM: No ascites or free air. The fat stranding seen in the prior exam on 07/17/2022 in the right lower quadrant has resolved. Thepreviously seen hypoattenuating 12 mm nodule adjacent to the distal transverse colonis not definitely seen on the current exam, and there is a punctate 1 mmnodule seen at the expected location for this nodule (6:47). RETROPERITONEUM: No mass or adenopathy. REPRODUCTIVE: No significant abnormality. VASCULATURE ABDOMEN: Mild atherosclerotic calcification of the abdominal aorta and iliac arteries. MUSCULOSKELETAL ABDOMEN PELVIS: Mild dextroscoliosis of the lumbarspine. Redemonstrated punctate sclerotic lesion within T11 vertebral body,similar to prior exam back in 2020, likely bone island. No suspicious osseous lyticor sclerotic lesions. OTHER: Fat containing umbilical hernia. IMPRESSION: -- IMPRESSION -- Posttreatment changes for the right upper lobe lung cancer, stable fromprior exam. No new suspicious pulmonary nodules or mass identified. No pneumonia or pleural effusion. No lymphadenopathy in the chest. No definite CT evidence of metastatic disease in the abdomen or pelvis. Resolution of the right lower quadrant fat stranding. The previously seen hypoattenuating 12 mm nodule adjacent to the distal transverse colon is not definitely seen on the current exam, and there francine punctate 1 mm nodule seen at the expected location for this nodule.Continued attention on follow-up imaging recommended. The above findings were discussed with Dr. Pineda via telephone by meDr. Hao Mena on 03/08/2023 at 11:49 central standard time. THIS IS AN ELECTRONICALLY VERIFIED FINAL REPORT 03/08/2023 11:55 AM - Electronically signed by Hao Mena M.D. WW: OANH Report ID: [id number] Reading Location: [place] [address] Zeeshan Rain MD IMG CT PROCEDURES Sada l Result * POCT creatinine for contrast evaluation (03/05/2023 10:57 AM CDT) Creatinine POC 0.80 0.60 - 1.10 mg/dL A[facility]IO Comment:Testing performed by : [facility], [address] [place] [address], [place]., [address] Blood 03/05/2023 10:5 7 AM CDT 03/05/2023 10:57 AM CDT Zeeshan Rain MD POINT OF CARE TEST ORD ERABLES Final Result [facility] [address] [facility] Department [place] [address] documented in this encounter Visit Diagnoses Diagnosis Malignant neoplasm of upper lobe, right bronchus or lung (HCC) documented in this encounter Administered Medications Inactive Administered Medications - up to 3 most recent administrations Medication Order MAR Action Action Date Dose Rate Site ioversoL (OPTIRAY 350) syringe 100 mL 100 mL, intravenous, Once in imaging, contrast, Starting on Wed03/05/23 at 1106, For 1 dose Contrast Given 03/05/2023 11:13 AM CDT 100 mL documented in this encounter Orders Medications Ordered That Adam ht Not Have Been Administered Count Last Ordered Date First Ordered Date ioversoL (OPTIRAY 350) syringe 100 mL 1 documented in this encounter Care Teams Mortgage Sales Manager Relationship Specialty Start Date End Date Paula Robles NP PCP - General 05/31/17 Addy Mathur MD PhD [address] [place] [address] Radiation Oncologist Radiation Oncology 03/10/18 Ama Zavaleta MD [address] [facility] [address] [place] [address] Medical Oncologist/Computing Systems Mechanic Medical Oncology 10/20/22 documented as of this encounter
--- OUTSIDE RECORDS SUMMARY | 2024-08-06 17:33 | XMS_ITS | Encounter Summary ---
Author Organization [facility] Healthcare Address [address] [place] [address] Care Team Providers Care Inspector Filter Tip Name Role Phone Philip Robleselle Eleni CIGAR PACKING EXAMINER Primary Care Provider + Addy Mathur MD PhD Unavailable [phone] Ama Zavaleta MD Unavailable Reason for Referral * Diagnostic Imaging (Routine) - Closed Specialty Diagnoses / Procedures Referred By Alan bangura Referred To Contact Radiology Diagnoses Malignant neoplasm of upper lobe, right bronchus or lung (HCC) Procedures CT Chest Abdomen Pelvis W Contrast Ama Zavaleta MD [address] [address] Phone: tel: fax: [address] [address] Referral ID Status Reason Start Date Expiration Date Visits Re quested Visits Authorized [id number] Closed 03/08/2023 04/06/2024 1 1 Reason for Visit * Diagnostic Imaging (Routine) - Closed Specialty Diagnoses / Procedures Referred By Alan bangura Referred To Contact Radiology Diagnoses Malignant neoplasm of upper lobe, right bronchus or lung (HCC) Procedures CT Chest Abdomen Pelvis W Contrast Ama Zavaleta MD [address] [address] Phone: tel: fax: [address] [address] Referral ID Status Reason Start Date Expiration Date Visits Re quested Visits Authorized [id number] Closed 03/08/2023 04/06/2024 1 1 Encounter Details Date Type Department Care Team (Latest Contact Info) Description 02/29/2024 9:10 AM CDT - 02/29/2024 11:59 PM CDT Hospital Encounter [address] [phone] Malignant neoplasm of upper lobe, right bronchus or lung (HCC) Discharge Disposition: Discharge to home or self care Social History Tobacco Use Types Packs/Day Years Used Date Smoking Tobacco: Never Assessed Smokeless Tobacco: Never Comments No Sex and Gender Information Value Date Recorded Sex Assigned at Not on file Legal 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 Gender Identity Not on file Sexual Orientation [...] TK 1 T PO HS 0 12/14/2017 potassium chloride ER 20 mEq CR tablet Take 1 tablet (20 mEq total) by mouth 2 (two) times a day 60 tablet 3 10/22/2022 4 documented as of this encounter Discharge Disposition Disposition Code Departure Means Destination Discharge to home or self care documented in this encounter Plan of Treatment Not on file documented as of this encounter Procedures Procedure Name Priority Date/Time Associated Diagnosis Comments CT CHEST ABDOMEN PELVIS W CONTRAST Schedule Routine, Read Routine (OP Routine) 02/29/2024 9:34 AM CDT Malignant neoplasm of upper lobe, right bronchus or lung (HCC) documented in this encounter Results * CT Chest Abdomen Pelvis W Contrast (02/29/2024 9:34 AM CDT) Anatomical Region Laterality Modality Body N/A Computed Tomogra phy 03/02/2024 8:33 AM CDT Narrative 03/02/2024 8:47 AM CDT EXAM DESCRIPTION: CT CHEST ABDOMEN PELVIS W CONTRAST REASON FOR STUDY: eval for mets ?? Hx of lung cancer diagnosed Apr 2017, eval for mets. Pt reports no new complaints ?? TECHNIQUE: CT scan of the chest, abdomen, [...] SYRINGE ?? injected via ?? intravenous COMPARISON: 03/05/2023, 09/14/2022, 07/17/2022, 01/23/2022 and 08/11/2021 FINDINGS: CHEST LUNGS: ?? Volume loss within the right hemithorax noted. ??Paramediastinal fibrosis with associated air bronchograms, in the right upper lung, stable from prior examination. ??There is a background of moderate emphysema. ?? Scattered subsegmental scarring/atelectasis is similar. ??There is no pneumonic consolidation. 2 mm nodule in the periphery of the left upper lobe on image number 24 is stable. ??There is no new suspicious pulmonary nodule within either lung. PLEURA: ?? No effusion. No pneumothorax. MEDIASTINUM/ERIK: ?? The visualized thyroid gland is unremarkable. ??There is no new mediastinal or hilar lymphadenopathy. ??The esophagus is unremarkable. HEART: ?? Heart size is normal with no pericardial effusion. ?? There are coronary artery calcifications. VASCULATURE CHEST: ?? Thoracic aorta is normal in caliber. ??Atherosclerotic changes are noted. ??Main pulmonary trunk is mildly enlarged, stable. AXILLA: ?? No adenopathy. CHEST WALL: ?? No masses. ??No subcutaneous air. HARDWARE/LINES/TUBES: ?? None. MUSCULOSKELETAL CHEST: ?? There is thoracic spondylosis with endplate osteophytes. ??Degenerative disc disease is noted. ??There is no acute osseous abnormality. ??Osteoarthritis of the shoulders, right greater than left partially visualized on this study, stable. ABDOMEN/PELVIS LIVER: ?? The liver is within normal limits in size. ??There is underlying steatosis. ??No discrete hepatic mass. GALLBLADDER: ?? Cholelithiasis. ??No associated inflammatory change. BILE DUCTS: ?? No intrahepatic or extrahepatic ductal dilatation. SPLEEN: ?? Normal size. ??No focal lesions. PANCREAS: ?? No identified cystic or solid masses. No significant calcifications. No adjacent inflammation or peripancreatic fluid collections. Pancreatic duct not dilated. ?? ADRENALS: ?? Normal. KIDNEYS/URINARY TRACT: ?? The kidneys are symmetric in size. ??There is a lesion along the medial cortex of the interpolar aspect of the right kidney anteriorly on image number 61 measuring 1.3 cm, stable compared to prior examinations. ??Hounsfield units are 21. ??Technically this lesion is indeterminate though has remained stable in size dating back to at least 2019 suggesting a benign etiology. ??There is no new suspicious lesion in either kidney. ??There is no hydronephrosis or hydroureter. ??No obstructing urolithiasis. ??The bladder is completely decompressed, limiting evaluation. GI: ?? No dilated bowel loops. No obvious wall thickening. ??Normal appendix. ?? The colon is largely decompressed. ??There is diverticulosis, without diverticulitis. PERITONEUM: ?? There is no free intraperitoneal air. ??There is no free fluid. ?? There is a fat containing hernia at the level of the umbilicus, similar in size compared to the most recent prior study RETROPERITONEUM: ?? There is no retroperitoneal lymphadenopathy REPRODUCTIVE: ?? No significant abnormality. VASCULATURE ABDOMEN: ?? The abdominal aorta is atherosclerotic, without aneurysm MUSCULOSKELETAL ABDOMEN PELVIS: ?? There is thoracic and lumbar spondylosis. ?? No acute osseous abnormality. ??Punctate sclerotic focus within the right aspect of T11 is stable, likely a bone island. ??Tiny sclerotic foci within the pelvis are stable as well, presumably bone islands. OTHER: ?? No significant abnormality. IMPRESSION: Stable post treatment changes within the right lung. No evidence of metastatic disease within the chest, abdomen or pelvis. Additional findings as above, stable. THIS IS AN ELECTRONICALLY VERIFIED FINAL REPORT 03/02/2024 8:47 AM - Electronically signed by ??Dede Ferraro M.D. TW: TW D: ??03/02/2024 8:47 AM T: ??03/02/2024 8:47 AM Report ID: [id number] Reading Location: ??[id number] Procedure Note Dede Ferraro MD - 03/02/2024 EXAM DESCRIPTION: CT CHEST ABDOMEN PELVIS W CONTRAST REASON FOR STUDY: eval for mets Hx of lung cancer diagnosed Apr 2017, eval for mets. Pt reports no new complaints TECHNIQUE: CT scan of the chest, abdomen, and pelvis performed with intravenous and without oral contrast using helical scanning techniquewith dynamic intravenous contrast injection. Reconstructed coronal and sagittalMPR images reviewed. All images stored on PACS. Automated exposure control was used as a dose optimization technique for this examination. CONTRAST TYPE/DOSE: 100mL of IOVERSOL 350 MG IODINE/ML INTRAVENOUS SYRINGE injected via intravenous COMPARISON: 03/05/2023, 09/14/2022, 07/17/2022, 01/23/2022 and 08/11/2021 FINDINGS: CHEST LUNGS: Volume loss within the right hemithorax noted. Paramediastinal fibrosis with associated air bronchograms, in the right upper lung, stable from prior examination. There is a background of moderate emphysema. Scattered subsegmental scarring/atelectasis is similar. There is nopneumonic consolidation. 2 mm nodule in the periphery of the left upper lobe on image number 24 is stable. There is no new suspicious pulmonary nodule within either lung. PLEURA: No effusion. No pneumothorax. MEDIASTINUM/ERIK: The visualized thyroid gland is unremarkable. Thereis no new mediastinal or hilar lymphadenopathy. The esophagus is unremarkable. HEART: Heart size is normal with no pericardial effusion. There are coronary artery calcifications. VASCULATURE CHEST: Thoracic aorta is normal in caliber. Atherosclerotic changes are noted. Main pulmonary trunk is mildly enlarged, stable. AXILLA: No adenopathy. CHEST WALL: No masses. No subcutaneous air. HARDWARE/LINES/TUBES: None. MUSCULOSKELETAL CHEST: There is thoracic spondylosis with endplate osteophytes. Degenerative disc disease is noted. There is no acuteosseous abnormality. 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 ABDOMEN/PELVIS LIVER: The liver is within normal limits in size. There is underlying steatosis. No discrete hepatic mass. GALLBLADDER: Cholelithiasis. No associated inflammatory change. BILE DUCTS: No intrahepatic or extrahepatic ductal dilatation. SPLEEN: Normal size. No focal lesions. PANCREAS: No identified cystic or solid masses. No significant calcifications. No adjacent inflammation or peripancreatic fluidcollections. Pancreatic duct not dilated. ADRENALS: Normal. KIDNEYS/URINARY TRACT: The kidneys are symmetric in size. There is alesion along the medial cortex of the interpolar aspect of the right kidney anteriorly on image number 61 measuring 1.3 cm, stable compared to prior examinations. Hounsfield units are 21. Technically this lesion is indeterminate though has remained stable in size dating back to at [id number] suggesting a benign etiology. There is no new suspicious lesion in either kidney. There is no hydronephrosis or hydroureter. No obstructing urolithiasis. The bladder is completely decompressed, limitingevaluation. GI: No dilated bowel loops. No obvious wall thickening. Normalappendix. The colon is largely decompressed. There is diverticulosis, without diverticulitis. PERITONEUM: There is no free intraperitoneal air. There is no freefluid. There is a fat containing hernia at the level of the umbilicus, similar in size compared to the most recent prior study RETROPERITONEUM: There is no retroperitoneal lymphadenopathy REPRODUCTIVE: No significant abnormality. VASCULATURE ABDOMEN: The abdominal aorta is atherosclerotic, without aneurysm MUSCULOSKELETAL ABDOMEN PELVIS: There is thoracic and lumbarspondylosis. No acute osseous abnormality. Punctate sclerotic focus within the right aspect of T11 is stable, likely a bone island. Tiny sclerotic foci withinthe pelvis are stable as well, presumably bone islands. OTHER: No significant abnormality. IMPRESSION: Stable post treatment changes within the right lung. No evidence of metastatic disease within the chest, abdomen or pelvis. Additional findings as above, stable. THIS IS AN ELECTRONICALLY VERIFIED FINAL REPORT 03/02/2024 8:47 AM - Electronically signed by Dede Ferraro M.D. TW: TW Report ID: [id number] Reading Location: [id number] Ama Zavaleta MD IMG CT PROCEDURES Fin al Result documented in this encounter Visit Diagnoses Diagnosis Malignant neoplasm of upper lobe, right bronchus or lung (HCC) documented in this encounter Administered Medications Inactive Administered Medications - up to 3 most recent administrations Medication Order MAR Action Action Date Dose Rate Site ioversoL (OPTIRAY 350) syringe 100 mL 100 mL, intravenous, Once in imaging, contrast, Starting on 02/29/24 at 0935, For 1 dose Contrast Given 02/29/2024 9:35 AM CDT 100 mL documented in this encounter Orders Medications Ordered That Adam ht Not Have Been Administered Count Last Ordered Date First Ordered Date ioversoL (OPTIRAY 350) syringe 100 mL 1 documented in this encounter Care Teams Inspector Filter Tip Relationship Specialty Start Date End Date Paula Robles NP PCP - General 05/31/17 Addy Mathur MD PhD [address] [place] [address] Radiation Oncologist Radiation Oncology 03/10/18 Ama Zavaleta MD [address] [facility] [address] [place] [address] Medical Oncologist/Area Development Consultant Medical Oncology 10/20/22 documented as of this encounter
--- OUTSIDE RECORDS SUMMARY | 2024-08-06 17:33 | XMS_ITS | Referral Summary ---
Author Organization [facility] Address [address] [place] [address] Care Team Providers Care Molten Iron Pourer Name Role Phone Paula Robles CORPORATE SALES TRAINER Primary Care Provider + Addy Mathur MD PhD Unavailable Ama Zavaleta MD Unavailable Katlin Martinez CORPORATE SALES TRAINER Unavailable Encounters Date Type Department Care Team Description 08/06/2024 Hospital Encounter [facility] ADMIT [address] [place] [address] Julia Lopez MD PhD 08/04/2024 Orders Only [facility] Cardiology [address] [place] [address] Clarence Alvarez MD from Last 3 Months Allergies Active Allergy Reactions Criticality Noted Date [...] 03/10/2018 Former smoker 05/24/2017 Pulmonary emphysema 04/28/2017 Immunizations Name Administration Dates Next Due Influenza, Quadrivalent, Kaylen l Culture-based MDCK, Preservative Free, Antibiotic Free, Intramuscular 07/28/2021,05/13/2020,06/26/2019,06/13,05/31/2017 Influenza, Trivalent, Preser vative Free, Intramuscular 05/31/2017,08/23/2013 Moderna SARS-CoV-2 Monovalen t Vaccination (12+ YRS) 10/22/2020,09/26/2020 Pneumococcal Conjugate PCV 13 02/12/2017 Pneumococcal Polysaccharide PPV23 01/11/2018 Tdap 02/03/2011 Social History Tobacco Use Types Packs/Day Years Used Date Smoking Tobacco: Unknown Smokeless Tobacco: Never Tobacco Cessation:Counseling Given: Not Answered Comments No Sex and Gender Information Value Date Recorded Sex Assigned at Not on file 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 Gender Identity Not on file Sexual Orientation [...] (5' 1.06 ) 07/20/2022 1 0:40 AM DOCK OPERATIONS SUPERVISOR Body Mass Index 44.84 07/20/2022 10:40 AM DOCK OPERATIONS SUPERVISOR Plan of Treatment Not on file Procedures Procedure Name Priority Date/Time Associated Diagnosis Comments CARDIOLOGY DOCUMENT SCAN Routine 08/03/2024 5:51 PM DOCK OPERATIONS SUPERVISOR from Last 3 Months Results * Cardiology Document Scan (08/03/2024 5:51 PM DOCK OPERATIONS SUPERVISOR) Anatomical Region Laterality Modality Other Clarence Alvarez MD CV CARDIAC SERVICES PROCEDURES F inal Result from Last [address] [place] [address] MEDICARE [facility] [place] [address] MEDICARE [facility] CHOICE [facility]US [facility] HMO/PPO Address: [address] [address] [place] [address] MEDICARE [employer] [facility] CHOICE [facility]US [facility] HMO/PPO Address: [address] [address] [place] [address] [place] [address] MEDICARE [facility] Member Subscriber Plan / Payer (Ef fective 2014-Present) Name:Gaby Morgan Relation to Subscriber:Self Name:Gaby Morgan Payer ID:[id number] (NAIC) Group ID:[id number] Type:[facility] Address: [address] [place] [id number] Care Teams Molten Iron Pourer Relationship Specialty Start Date End Date Paula Robles NP PCP - General 05/31/17 Addy Mathur MD PhD [address] [place] [address] Radiation Oncologist Radiation Oncology 03/10/18 Ama Zavaleta MD [address] [facility] [address] [place] [address] Medical Oncologist/Explosive Ordnance Manager Medical Oncology 10/20/22 Katlin Martinez NP [address] [address] Nurse Practitioner 03/06/24
--- OUTSIDE RECORDS SUMMARY | 2024-08-06 17:33 | XMS_ITS ---
Author Organization [facility] Address [address] [place] [address] Care Team Providers Care Physical Education Professor Name Role Phone Paula Robles B2B ACCOUNT EXECUTIVE Primary Care Provider + Addy Mathur MD PhD Unavailable [phone] Ama Zavaleta MD Unavailable Katlin Martinez B2B ACCOUNT EXECUTIVE Unavailable [phone] Active Problems Problem Noted Date Diagnosed Date [...] 03/10/2018 Former smoker 05/24/2017 Pulmonary emphysema 04/28/2017 Current Oncology Plans No current plan information found. Past Plans No past plan information found. Radiation Treatments * Plan Last Treated On Elapsed Days Fractions Treated Prescribed Fraction Dose Prescribed Total Dose WHOLE BRAIN 09/25/2017 11 10 250 cGy 2,500 cG y R LUNG_REPLAN 08/03/2017 43 17 200 cGy 3,400 cGy Reference Point Last Treated On Elapsed Days Session Dose Total Dose BRAIN_dpv 09/25/2017 11 250 cGy 2,500 cGy PTV lung 08/03/2017 43 200 cGy 6,000 cGy Lifetime Dose Tracking * Chemical Lifetime Dose Automatic Entry Manual Entr y Fluoro Time 1.2 minutes 1.2 minutes 0 minutes Air kerma at the reference point (Ka,r) 0.01 mGy 0 .01 mGy 0 mGy DLP 26,239 mGycm 26,239 mGycm 0 mGycm
--- OUTSIDE RECORDS SUMMARY | 2024-08-06 17:33 | XMS_ITS | Encounter Summary ---
Author Organization [facility] Healthcare Address [address] [place] [address] Care Team Providers Care Polisher Balance Screwhead Name Role Phone HartfordPaula joseph Eleni MANAGER ICU Primary Care Provider + Addy Mathur MD PhD Unavailable Ama Zavaleta MD Unavailable Encounter Details Date Type Department Care Team (Latest Contact Info) Description 03/08/2023 11:14 AM CDT - 03/08/2023 11:59 PM CDT Hospital Encounter [facility] Advanced Medicine [facility] Advanced [facility] ([facility]) [address] [place] [phone] Malignant neoplasm of upper lobe, right bronchus or lung (HCC) Discharge Disposition: Discharge to home or self care Social History Tobacco Use Types Packs/Day Years Used Date Smoking Tobacco: Never Assessed Smokeless Tobacco: Never Comments No Sex and Gender Information Value Date Recorded Sex Assigned at Not on file 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 Gender Identity Not on file Sexual Orientation [...] Priority Date/Time Associated Diagnosis Comments EGFR STAT 03/08/2023 10:05 AM CDT Malignant neoplasm of upper lobe, right bronchus or lung (HCC) DIFFERENTIAL AUTO Routine 03/08/2023 10: 05 AM CDT Malignant neoplasm of upper lobe, right bronchus or lung (HCC) CBC WITH AUTO DIFFERENTIAL Routine 03/08/2023 10:05 AM CDT Malignant neoplasm of upper lobe, right bronchus or lung (HCC) COMPREHENSIVE METABOLIC PANEL STAT 03/08/2023 10:05 AM CDT Malignant neoplasm of upper lobe, right bronchus or lung (HCC) documented in this encounter Results * (ABNORMAL) eGFR (03/08/2023 10:05 AM CDT) Pathologist [facility] eGFR 87(L) 90 - 130 mL/min/1. 73 m2 [facility] Comment: Interpretive Data Reference Interval Normal ?>/= [...] was last reviewed 2021. Testing performed by: [facility], [address] [place] [phone] Blood 03/08/2023 10:0 5 AM CDT 03/08/2023 10:12 AM CDT us Zeeshan Rain MD LAB BLOOD ORDERABLES F inal Result [facility] BELLA [facility] Department of Laboratories [place], [place] [id number] * Differential, auto (03/08/2023 10:05 AM CDT) Neutrophil abs 3.6 1.8 - 6.6 K/cumm ARSENIO BELLA Comment:Testing performed by : [facility], [address] [place] [phone] Lymphocyte abs 2.1 1.2 - 3.3 K/cumm ARSENIO BELLA Comment:Testing performed by : [facility], [address] [place] [phone] Monocyte abs 0.4 0.2 - 1.2 K/cumm ARSENIO SMITH Comment:Testing performed by : [facility], [address] [place] [phone] Eosinophil abs 0.2 0.0 - 0.5 K/cumm ARSENIO BELLA Comment:Testing performed by : [facility], [address] [place] [phone] Basophil abs 0.0 0.0 - 0.2 K/cumm ARSENIO SMITH Comment:Testing performed by : [facility], [address] [place] [phone] Neutrophil pct 57.6 % [facility] Comment: Interpretive Data Percent cell count reference ranges are not reported, since discordance with absolute values may lead to misinterpretation of CBC data. Current Interpretive Data was last revised on 2017. Testing performed by: [facility], [address] [place] [phone] Lymphocyte pct 32.6 % A[facility]ENIO BELLA Comment: Interpretive Data Percent cell count reference ranges are not reported, since discordance with absolute values may lead to misinterpretation of CBC data. Current Interpretive Data was last revised on 2017. Testing performed by: [facility], [address] [place] [phone] Monocyte pct 6.5 % ARSENIO BELLA Comment:Testing performed by : [facility], [address] [place] [phone] Eosinophil pct 2.7 % ARSENIO BELLA Comment:Testing performed by : [facility], [address] [place] [phone] Basophil pct 0.6 % A[facility]ENIO BJ Comment:Testing performed by : [facility], [address] [place] [phone] Blood 03/08/2023 10:0 5 AM CDT 03/08/2023 10:12 AM CDT us Zeeshan Rain MD LAB BLOOD ORDERABLES F inal Result [facility] Department [place] [address] * CBC with auto differential (03/08/2023 10:05 AM CDT) WBC 6.3 3.8 - 9.8 K/cumm ARSENIO SMITH Comment:Testing performed by : [facility], [address] [place], [place] [phone] Hgb 14.4 12.1 - 15.1 g/dL CERNER BJ Comment:Testing performed by : [facility], [address] [place], [place] [id number] Hct 42.8 36.1 - 44.3 % C[facility]ER BJ Comment:Testing performed by : [facility], [address] [place] [address] Plt 224 140 - 440 K/cumm CERNER BJ Comment:Testing performed by : [facility], [address] [place], [place] [id number] MPV 7.9 6.8 - 10.4 fL CERNER BJ Comment:Testing performed by : [place] [address] RBC 4.60 3.90 - 5.00 M/cumm [facility] Comment:Testing performed by : [place] [address] MCV 93.0 80.0 - 97.6 fL C[facility]ER BJ Comment:Testing performed by : [place] [id number] MCH 31.4 26.7 - 33.7 pg [facility]ER BJ Comment:Testing performed by : [place] [id number] MCHC 33.7 32.7 - 35.5 g/dL [facility] BJ Comment:Testing performed by : [place] [id number] RDW CV 13.8 11.8 - 14.6 % CERNER BJ Comment:Testing performed by : [place] [id number] NRBC abs 0.00 0.00 - 0.01 K/cumm C[facility]ER BJ Comment:Testing performed by : [place] [id number] Blood 03/08/2023 10:0 5 AM CDT 03/08/2023 10:12 AM CDT us Zeeshan Rain MD LAB BLOOD ORDERABLES F inal Result [facility] Department [place] [address] * (ABNORMAL) Comprehensive metabolic panel (03/08/2023 10:05 AM CDT) Sodium 141 135 - 145 mmol/L ARSENIO BELLA Comment:Testing performed by : [facility], [address] [place] [phone] Potassium, pl 3.4 3.3 - 4.9 mmol/L ARSENIO BELLA Comment:Testing performed by : [facility], [address] [place] [phone] Chloride 99 97 - 110 mmol/L ARSENIO BELLA Comment:Testing performed by : [facility], [address] [place] [phone] CO2 33(H) 22 - 32 mmol/L ARSENIO BELLA Comment:Testing performed by : [facility], [address] [place] [phone] Anion gap 9 2 - 15 mmol/L ARSENIO BELLA Comment:Testing performed by : [facility], [address] [place] [phone] BUN 12 6 - 25 mg/dL ARSENIO BELLA Comment:Testing performed by : [facility], [address] [place] [phone] Creatinine 0.73 0.60 - 1.10 mg/dL ARSENIO BELLA Comment:Testing performed by : [facility], [address] [place] [phone] Glucose 118 70 - 199 mg/dL ARSENIO BELLA Comment: Interpretive Data Fasting glucose >/= 126 [...] was last revised 2022. Testing performed by: [facility], [address] [place] [phone] Calcium 9.4 8.5 - 10.3 mg/dL [facility] Comment:Testing performed by : [facility], [address] [place] [phone] Bilirubin, total 0.7 0.1 - 1.2 mg/dL [facility] BJ Comment:Testing performed by : [facility], [address] [place] [phone] Protein, pl 7.2 6.5 - 8.5 g/dL [facility]J Comment:Testing performed by : [facility], [address] [place] [phone] Albumin 4.1 3.5 - 5.0 g/dL [facility] BJ Comment:Testing performed by : [facility], [address] [place] [phone] Alk phos 100 40 - 130 Units/L [facility] Comment:Testing performed by : [facility], [address] [place] [phone] ALT 21 7 - 45 Units/L [facility] Comment:Testing performed by : [facility], [address] [place] [phone] AST 20 10 - 45 Units/L [facility] Comment:Testing performed by : [address] [phone] Blood 03/08/2023 10:0 5 AM CDT 03/08/2023 10:12 AM CDT us Zeeshan Rain MD LAB BLOOD ORDERABLES F inal Result [facility] Department [place] [address] documented in this encounter Visit Diagnoses Diagnosis Malignant neoplasm of upper lobe, right bronchus or lung (HCC) documented in this encounter Care Teams Polisher Balance Screwhead Relationship Specialty Start Date End Date Paula Robles NP PCP - General 05/31/17 Addy Mathur MD PhD [address] [place] [address] Radiation Oncologist Radiation Oncology 03/10/18 Ama Zavaleta MD [address] [facility] [address] [place] [address] Medical Oncologist/Port Engineer Medical Oncology 10/20/22 documented as of this encounter
--- OUTSIDE RECORDS SUMMARY | 2024-08-06 17:33 | XMS_ITS | CONTINUITY OF CARE DOCUMENT ---
Author Name joanne, joanne Address Unknown Organization [facility] Address [address] [facility] [address] [place] [address] Phone [phone] Care Team Providers Care Tank Crewmember Name Role Phone Ellis EISENBERG, Joel Unavailable JOVITA EISENBERG, MICHELLE Marques Unavailable [phone] Michelle HOUSEKEEPER HOME, Katlin Unavailable [phone] PROBLEMS Condition Status Date Provider Notes ABNORMAL STRESS NUCLEAR SCAN completed - Joel Corral MD SLEEP APNEA active Joel Corral MD VENOUS INSUFFICIENCY active Joel Corral MD Balance problem active Joel Corral MD Lung cancer s/p chemo/radiation active Ady Corral MD Former smoker active Joel Corral MD Hyperlipidemia active Joel Corral MD Pulmonary hypertension active Joel Corral MD Shortness of breath active Joel Corral MD Leg edema, bilateral active Joel Corral MD OBESITY active ? Roberto Ladd MD ASTHMA active ? Roberto Ladd MD ENCOUNTERS Date Type Provider Location Encounter Diag nosis 6 - 6 In-person encounter Office Visit Joel Corral MD [facility] VENOUS INSUFFICIENCYSLEEP APNEA 8 - 9 In-person encounter Office Visit Joel Corral MD [facility] ABNORMAL STRESS NUCLEAR SCANLeg edema, bilateralShortness of breathPulmonary hypertensionHyperlipidemiaFormer smokerLung cancer s/p chemo/radiationBalance problem 1 - 2 In-person encounter Office Visit Roberto Ladd MD [facility] ASTHMAOBESITY VITAL SIGNS Date Observation Value Provider Body Mass Index (Ratio) 43.89 kg/m2 Ady Corral MD blood pressure, cuff size large Ja rr blood pressure, diastolic 89 mm[Hg] Ja rret blood pressure, systolic 146 mm[Hg] Jar ret oxygen saturation, oximetry 90 % pulse rate 97 /min Galindo respiratory rate E&M 16 /min Galindo weight E&M 240 [lb_av] Galindo height E&M 62 [in_i] Galindo Body Mass Index (Ratio) 44.07 kg/m2 Ady Corral MD blood pressure, diastolic 91 mm[Hg] Allison nkLogic blood pressure, systolic 158 mm[Hg] Sandy kLogic pulse rate 95 /min Galindo blood pressure, cuff size large Ja rret blood pressure, diastolic 91 mm[Hg] Ja rret blood pressure, systolic 158 mm[Hg] Jar ret oxygen saturation, oximetry 93 % Galindo respiratory rate E&M 18 /min Galindo weight E&M 241 [lb_av] Galindo y height E&M 62 [in_i] Galindo y blood pressure, diastolic, left arm 95 mm [Hg] Jaya Crespodavid BAJWA blood pressure, systolic, left arm 181 mm [Hg] Jaya Crespodavid BAJWA blood pressure, diastolic, right arm 104 mm[Hg] Jaya Crespodavid BAJWA blood pressure, systolic, right arm 197 m m[Hg] Jaya Crespodavid BAJWA blood pressure, diastolic 95 mm[Hg] Leopoldo bryn Crespodavid BAJWA blood pressure, systolic 181 mm[Hg] Jaya Crespodavid BAJWA pulse rate 88 /min Jaya Crespodavid BAJWA oxygen saturation, oximetry 90 % Jaya Crespodavid BAJWA respiratory rate E&M 16 /min Jaya Jere shaundavid BAJWA weight E&M 251 [lb_av] Jaya Crespodavid BAJWA height E&M 62 [in_i] Jaya Macedo RN ALLERGIES Allergy Name Onset Date Reaction Criticality Status SEASONAL Low Criticality active RESULTS Date Observation Value Provider Reference Range Interpretation Location hematocrit, blood 48.5 % Iva Gibson lipoprotein, beta, serum, point, quantitative, calculated 124 mg/dL Iav Gibson cholesterol, serum 211 mg/dL Iva Gibson alanine aminotransferase (SGPT), serum 21 1/L [facility] aspartate aminotransferase (SGOT), serum 18 1/L Iva Gibson creatinine, serum 0.80 mg/dL Iva Gibson potassium, serum 4.5 mmol/L Iva Gibson sodium, serum 143 mmol/L [facility] prothrombin time (patient) 807 s Kayce Toribio international normalized ratio (INR) 0.9 Kayce Toribio Normal HISTORY OF MEDICATION USE Medication Status Instructions Dates Provider Indications Com ments simvastatin 20 mg tablet active TAKE 1 TABLET BY MOUTH AT BEDTIME Joel Morillo Ellipevelina 100-62.5-25 mcg blister with device active Joel Corral MD furosemide 40 mg tablet active Joel Corral MD ibuprofen 200 mg capsule completed - 8 Joel Corral MD aspirin 325 mg tablet completed 1 tablet once a day - 8 Joel Corral MD furosemide 40 mg tablet completed as needed - 8 Joel Corral MD simvastatin 20 mg tablet completed 1 tablet once a day - 8 Joel Corral MD COMBIVENT AEROSOL completed as needed - 8 Joel Corral MD ADVAIR DISKUS 250-50 MCG/DOSE INHALATION AEROSOL POWDER BREATH ACTIVATED completed 1 puff twice a day - 8 Joel Corral MD SOCIAL HISTORY Date Observation Value Provider drug use no Joel Corral MD alcohol use no Joel Corral MD passive cigarette smoke exposure no Joel Corral MD smoking status Former smoker Joel Corral MD drug use no Joel Corral MD alcohol use no Joel Corral MD passive cigarette smoke exposure no Joel Corral MD smoking status Former smoker Joel Corral MD drug use no Jaya Macedo RN passive cigarette smoke exposure no Jaya Macedo RN smoking history, total pack/year 50 Jaya Macedo RN smoking, year quit 2008 Jaya hernandez RN caffeine use, average drinks per day yes Jaya Macedo RN smoking status former smoker Jaya Garrison social history reviewed E&M reviewed Jaya Macedo RN MENTAL STATUS Date Observation Value Provider assessment of judgme nt and insight E&M Alert and oriented to time, place and person. Mood and affect are normal. Jaya Macedo RN INSURANCE PROVIDERS Payer name Policy type / Coverage type [place] red libertarian ID [facility] [id number] [place] [employer] Medicare [id number] ADVANCE DIRECTIVES Name Date DISCUSSED - NO DECISION MADE TREATMENT PLAN Date Name Performer Cardiology:AHI 16 needs to wear O2 at all time Joel Corral MD Cardiology:Arrange f or L GSV venaseal. C EAP class 4 Sx Joel Corral MD Cardiology: T he following medications were removed from the medication list: Simvastatin 20 Mg Tablet (Simvastatin) ..... 1 tablet once a day Her updated medication list for this problem includes: Simvastatin 20 Mg Tablet (Simvastatin) ..... Take 1 tablet by mouth at bedtime Joel Corral MD Cardiology: B LE swelling, redness, discoloration. Will plan on venous dopplers R ecommend compression hose with 20-30mmHg of compression if toelrable, or else Tubigrip wraps Joel Corral MD Cardiology Joel Corral MD Cardiology: S he uses O2 at night W ill plan on sleep study to assess for SERJIO and hypoxic episodes at night P ángel on echo Joel Corral MD Date Name VenaSeal Venous Doppler Bilat eral LE - Reflux Sleep Study Home Complete Echo Arterial Duplex Bi-L ower EX Venous Doppler Bilat eral LE - Reflux Complete Echo Cardiac Cath - Left - CNE HISTORY OF PROCEDURES Procedure Date Procedure Name Provider Procedure Notes S tatus EKG Joel Corral MD completed
--- OUTSIDE RECORDS SUMMARY | 2024-08-06 17:33 | XMS_ITS | Encounter Summary ---
Author Organization [facility] Healthcare Address [address] [place] [address] Care Team Providers Care Log Buyer Name Role Phone Philip Robleselle Eleni AIR CONDITIONING SERVICE TECHNICIAN Primary Care Provider + Addy Mathur MD PhD Unavailable [phone] Ama Zavaleta MD Unavailable Reason for Referral * Diagnostic Imaging (Routine) - Closed Specialty Diagnoses / Procedures Referred By Alan t Referred To Contact Radiology Diagnoses Malignant neoplasm of upper lobe, right bronchus or lung (HCC) Procedures MRI Brain W WO Contrast Ama Zavaleta MD [address] [address] Phone: tel: fax: [address] [phone] Referral ID Status Reason Start Date Expiration Date Visits Re quested Visits Authorized [id number] Closed 03/08/2023 04/06/2024 1 1 Reason for Visit * Diagnostic Imaging (Routine) - Closed Specialty Diagnoses / Procedures Referred By Alan bangura Referred To Contact Radiology Diagnoses Malignant neoplasm of upper lobe, right bronchus or lung (HCC) Procedures MRI Brain W WO Contrast Ama Zavaleta MD [address] [address] Phone: tel: fax: [address] [phone] Referral ID Status Reason Start Date Expiration Date Visits Re quested Visits Authorized [id number] Closed 03/08/2023 04/06/2024 1 1 Encounter Details Date Type Department Care Team (Latest Contact Info) Description 02/29/2024 9:10 AM CDT - 02/29/2024 11:59 PM CDT Hospital Encounter [address] [address] Malignant neoplasm of upper lobe, right bronchus or lung (HCC) Discharge Disposition: Discharge to home or self care Social History Tobacco Use Types Packs/Day Years Used Date Smoking Tobacco: Never Assessed Smokeless Tobacco: Never Comments No Sex and Gender Information Value Date Recorded Sex Assigned at Not on file 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 MRI BRAIN W WO CONTRAST REASON FOR STUDY: ?? eval for mets ?? eval for mets, Malignant neoplasm of upper lobe, right bronchus or lung. ?? Completed chemo and radiation. ? TECHNIQUE: Multiplanar imaging includes noncontrast T1, T2, FLAIR, diffusion with ADC map and post contrast T1 sequences. Additional sequence(s) sensitive to blood products. ??Images stored on PACS. ? CONTRAST TYPE/DOSE: ?? 20mL of GADOTERATE MEGLUMINE 0.5 MMOL/ML INTRAVENOUS SOLUTION (SO) ??injected via ?? intravenous COMPARISON: ?? MRI brain dated 07/17/2022, 07/25/2021, 02/01/2020 and 08/07/2020. FINDINGS: There is no diffusion restriction to suggest acute/recent infarction. No parenchymal susceptibility signal to indicate blood degradation products. There is cerebral and cerebellar parenchymal volume loss. ??No hydrocephalus. ?? The basilar cisterns are maintained. 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 ??Elsewhere the subcortical and periventricular white matter T2/FLAIR hyperintense signal in the bilateral cerebral hemispheres is nonspecific but compatible with chronic microvascular ischemic type change in a patient of this age. ??A component of treatment related change can also have similar appearance. On postcontrast imaging, there is no enhancing parenchymal mass. The bilateral globes are symmetric. ??There is mucosal thickening in the bilateral ethmoid air cells. ??The mastoid air cells are predominantly clear. IMPRESSION: ?? 1. ?? No enhancing parenchymal mass to suggest metastatic disease. 2. ?? Additional findings as above. THIS IS AN ELECTRONICALLY VERIFIED FINAL REPORT 02/29/2024 10:25 AM - Electronically signed by ??Randy Falcon D.O. AP: AP D: ??02/29/2024 10:25 AM T: ??02/29/2024 10:25 AM Report ID: [id number] Reading Location: ??[id number] Procedure Note Randy Falcon, DO - 02/29/2024 EXAM DESCRIPTION: MRI BRAIN W WO CONTRAST REASON FOR STUDY: eval for mets eval for mets, Malignant neoplasm of upper lobe, right bronchus or lung. Completed chemo and radiation. TECHNIQUE: Multiplanar imaging includes noncontrast T1, T2, FLAIR,diffusion with ADC map and post contrast T1 sequences. Additional sequence(s)sensitive to blood products. Images stored on PACS. CONTRAST TYPE/DOSE: 20mL of GADOTERATE MEGLUMINE 0.5 MMOL/ML INTRAVENOUS SOLUTION (SO) injected via intravenous COMPARISON: MRI brain dated 07/17/2022, 07/25/2021, 02/01/2020 and 08/07/2020. FINDINGS: There is no diffusion restriction to suggest acute/recent infarction. No parenchymal susceptibility signal to indicate blood degradationproducts. There is cerebral and cerebellar parenchymal volume loss. Nohydrocephalus. The basilar cisterns are maintained. Chronic lacunar infarctions in the grewal radiata and basal ganglia areagain seen. Elsewhere the subcortical and periventricular white matter T2/FLAIR hyperintense signal in the bilateral cerebral hemispheres is nonspecificbut compatible with chronic microvascular ischemic type change in a patient of this age. A component of treatment related change can also have similar appearance. On postcontrast imaging, there is no enhancing parenchymal mass. The bilateral globes are symmetric. There is mucosal thickening in the bilateral ethmoid air cells. The mastoid air cells are predominantlyclear. IMPRESSION: 1. No enhancing parenchymal mass to suggest metastatic disease. 2. Additional findings as above. THIS IS AN ELECTRONICALLY VERIFIED FINAL REPORT 02/29/2024 10:25 AM - Electronically signed by Randy XiongO. AP: AP Report ID: [id number] Reading Location: [id number] Ama Zavaleta MD IMG MRI PROCEDURES Fi nal Result * POCT creatinine for contrast evaluation (02/29/2024 9:26 AM CDT) Creatinine POC 1.00 0.60 - 1.10 mg/dL Comment:Testing performed by : [facility], [address] [place] [address]., [id number] Blood 02/29/2024 9:26 AM CDT 02/29/2024 9:26 AM CDT Ama Zavaleta MD POINT OF CARE TEST OR DERABLES Final Result Performing Organization Address City/State/[facility] Co in Phone Number [place] [address] [facility] Department [place] [address] documented in this encounter Visit Diagnoses Diagnosis Malignant neoplasm of upper lobe, right bronchus or lung (HCC) documented in this encounter Administered Medications Inactive Administered Medications - up to 3 most recent administrations Medication Order MAR Action Action Date Dose Rate Site gadoterate meglumine injection 20 mL 20 mL, intravenous, Once in imaging, contrast, Starting on 02/29/24 at 0943, For 1 dose Contrast Given 02/29/2024 9:44 AM CDT 20 mL documented in this encounter Orders Medications Ordered That Adam ht Not Have Been Administered Count Last Ordered Date First Ordered Date gadoterate meglumine injection 20 mL 1 02/07 documented in this encounter Care Teams Log Buyer Relationship Specialty Start Date End Date Paula Robles NP PCP - General 05/31/17 Addy Mathur MD PhD [address] [place] [id number] Radiation Oncologist Radiation Oncology 03/10/18 Ama Zavaleta MD [address] [facility] [address] [place] [address] Medical Oncologist/Airdox Fitter Medical Oncology 10/20/22 documented as of this encounter
--- OUTSIDE RECORDS SUMMARY | 2024-08-06 17:33 | XMS_ITS | Encounter Summary ---
Author Organization [facility] Address [address] [place] [address] Phone Care Team Providers Care Scientific Informatics Project Leader Name Role Phone Paula Robles NP Primary Care Provider + Addy Mathur MD PhD Unavailable + [phone] Ama Zavaleta MD Unavailable Reason for Referral * Diagnostic Imaging (Routine) - Closed Specialty Diagnoses / Procedures Referred By Alan bangura Referred To Contact Radiology Diagnoses Malignant neoplasm of upper lobe, right bronchus or lung (HCC) Procedures MRI Brain W WO Contrast Ama Zavaleta MD [address] [facility] [address] [place] [address] Phone: tel: fax: [address] [phone] Referral ID Status Reason Start Date Expiration Date Visits Re quested Visits Authorized [id number] Closed 03/08/2023 04/06/2024 1 1 * Diagnostic Imaging (Routine) - Closed Specialty Diagnoses / Procedures Referred By Alan bangura Referred To Contact Radiology Diagnoses Malignant neoplasm of upper lobe, right bronchus or lung (HCC) Procedures CT Chest Abdomen Pelvis W Contrast Ama Zavaleta MD [address] [facility] [address] [place] [address] Phone: tel: fax: [address] [phone] Referral ID Status Reason Start Date Expiration Date Visits Re quested Visits Authorized [id number] Closed 03/08/2023 04/06/2024 1 1 Encounter Details Date Type Department Care Team (Late st Contact Info) Description 03/08/2023 11:00 AM CDT Office Visit [facility] Oncology [address] [facility] 7th [place] [address] [place] [address] Ama Zavaleta MD [address] [facility] [address] [place] [address] Malignant neoplasm of upper lobe, right bronchus or lung (HCC) (Primary Dx) Social History Tobacco Use Types Packs/Day Years Used Date Smoking Tobacco: Never Assessed Smokeless Tobacco: Never Tobacco Cessation:Counseling Given: Not Answered Comments No Sex and Gender Information Value Date Recorded Sex Assigned at Not on file Legal 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 Gender Identity Not on file Sexual Orientation Not on file documented as of this encounter Last Filed Vital Signs Vital Sign Reading Time Taken Comments Blood Pressure 126/86 03/08/2023 10:18 AM CDT Pulse 102 03/08/2023 10:18 AM CDT Temperature 36.4 ??C (97.5 ??F) 03/08/2023 1 0:18 AM CDT Respiratory Rate 20 03/08/2023 10:1 8 AM CDT Oxygen Saturation 90% 03/08/2023 10: 18 AM CDT Inhaled Oxygen Concentration - - Weight 116.4 kg (256 lb 9.6 oz) 023 10:18 AM CDT Height - - Body Mass Index 48.38 07/20/2022 10:40 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 Tumor specimen demonstrates CD56, synaptophysin, cytokeratin, and TTF positivity. TREATMENT: 1. Concurrent chemoradiation with carboplatin and etoposide with radiation from 06/21/2017 to 08/03/2017, and chemotherapy from 05/28/2017 to 08/05/2017. 2. Prophylactic whole-brain radiation in 10 fractions from 09/13/2017 to 09/24/2017. Active Treatment & Therapy Plans for Gaby Morgan Marilyn S does not have any active plans of the following types: Oncology Chemotherapy Treatment, Oncology Treatment (2), Oncology Treatment (3), Oncology Supportive Care, Specialty Infusion Treatment, Blood Products, BMT, Hematology Subjective Interval History: Ms. Morgan is a 72 y.o. 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 She states that she has been feeling okay with baseline copd. She denies any worsening shortness of breath or chest pain. She denies nausea or vomiting, diarrheaor constipation, or any fevers or chills. Her appetite and energy level have been stable. Past Medical History: Diagnosis Date Cancer (CMS/HCC) (HCC) Past Surgical History: Procedure Laterality Date SECTION x2 Family History Problem Relation Age of Onset Alzheimer's disease Mother No Known Problems Father Cirrhosis Sister Alcohol No Known Problems Brother Social History Tobacco Use Smoking status: None Smokeless tobacco: Never Substance and Sexual Activity Drug use: None Sexual activity: None Alcohol Use: Not on file Allergies Allergen Reactions Rosuvastatin Unknown and Other (See comments) Current Outpatient Medications: fczdalqotuk-hdlixqamk-uueuixvr (TRELEGY ELLIPTA) 100-62.5-25 mcg inhaler, Inhale 1 puff daily, Disp: , Rfl: furosemide (LASIX) 40 mg tablet, TK 1 T PO QD, Disp: , Rfl: 1 ipratropium-albuterol (DUO-NEB) 0.5-2.5 mg/3 mL nebulizer solution, 4 gm mist. inhal, Disp: , Rfl: loratadine (CLARITIN) 10 mg tablet, TK 1 T PO QAM, Disp: , Rfl: 0 montelukast (SINGULAIR) 10 mg tablet, TK 1 T PO D, Disp: , Rfl: 2 potassium chloride ER 20 mEq CR tablet, Take 1 tablet (20 mEq total) by mouth 2 (two) times a day, Disp: 60 tablet, Rfl: 3 simvastatin (ZOCOR) 20 mg tablet, TK 1 T PO HS, Disp: , Rfl: 0 multivitamin tablet, daily. (Patient not taking: Reported on 02/03/2021), Disp: , Rfl: REVIEW OF SYSTEMS: Per interval history, all other systems were reviewed and negative. PERFORMANCE STATUS: ECOG PS 1 Objective Vitals: Most Recent : Vitals BP 126/86 Pulse 102 Temp 36.4 ??C (97.5 ??F) (Transdermal) Resp 20 Wt 116.4 kg (256 lb 9.6 oz) SpO2 90% BMI 48.38 kg/m?? PHYSICAL EXAM: In no acute distress HEENT: sclera anicteric, no palor, mucous membranes moist, oropharynx clear Lymphatics: no cervical or supraclavicular adenopathy Chest: clear to auscultation bilaterally Heart: regular rate and rhythm Abdomen: soft, non-tender Extremities: 1+ BLE edema Neurologic: Alert, speech normal, no gross motor or sensory deficits noted Psychiatric exam: Appropriate affect Skin: no rashes or bruises Lab/Radiology/Diagnostic Review: CBC: Lab Results Component Value Date WBC 6.3 03/08/2023 HGB 14.4 03/08/2023 HCT 42.8 03/08/2023 MCV 93.0 03/08/2023 LABPLAT 224 03/08/2023 NEUTROABS 3.6 03/08/2023 CMP: Lab Results Component Value Date SODIUM 141 03/08/2023 POTASSIUM 3.4 03/08/2023 CO2 33 (H) 03/08/2023 BUNSER 12 03/08/2023 GLUCOSE 118 03/08/2023 CREATININE 0.73 03/08/2023 CALCIUM 9.4 03/08/2023 CHLORIDE 99 03/08/2023 ALBUMIN 4.1 03/08/2023 AST 20 03/08/2023 ALT 21 03/08/2023 ALKPHOS 100 03/08/2023 BILITOT 0.7 03/08/2023 PROT 7.2 03/08/2023 ANIONGAP 9 03/08/2023 No results found for: TSH, FREET4, T3FREE Radiology: CT Chest Abdomen Pelvis W Contrast 03/05/2023 Narrative EXAM DESCRIPTION: CT CHEST ABDOMEN PELVIS W CONTRAST REASON FOR STUDY: eval for mets Dx with lung cancer in 2017. No sx hx. 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 Tumor specimen demonstrates CD56, synaptophysin, cytokeratin, and TTF positivity. TREATMENT: 1. Concurrent chemoradiation with carboplatin and etoposide with radiation from 06/21/2017 to 08/03/2017, and chemotherapy from 05/28/2017 to 08/05/2017. 2. Prophylactic whole-brain radiation in 10 fractions [...] No pneumothorax. MEDIASTINUM/ERIK: No supraclavicular, mediastinum, or hilar lymphadenopathy. HEART: Heart size is normal with no pericardial effusion. VASCULATURE CHEST: Mild atherosclerotic calcification of the thoracic aorta. AXILLA: No adenopathy. CHEST WALL: No masses. [...] peripancreatic fluid collections. Pancreatic duct not dilated. ADRENALS: Normal. KIDNEYS/URINARY [...] in the right lower quadrant has resolved. The previously seen hypoattenuating 12 mm nodule [...] MUSCULOSKELETAL ABDOMEN PELVIS: Mild dextroscoliosis of the lumbar spine. Redemonstrated punctate sclerotic lesion within T11 vertebral body, similar to prior exam back in 2020, likely bone island. No suspicious osseous lytic or sclerotic lesions. OTHER: Fat containing umbilical hernia. Impression -- IMPRESSION -- Posttreatment changes for the [...] at the expected location for this nodule. Continued attention on follow-up imaging recommended. The above findings were discussed with Dr. Pineda via telephone by me Dr. Hao Mena on 03/08/2023 at 11:49 central standard time. THIS IS AN ELECTRONICALLY VERIFIED FINAL REPORT 03/08/2023 11:55 AM - Electronically signed by Hao Mena M.D. WW: OANH Report ID: [id number] Reading Location: [id number] I independently reviewed the images and the report from 03/05/23. Pathology: None Assessment/Plan Mrs. Morgan is a 72 year old woman with limited stage small cell lung cancer s/p concurrent chemoradiation in 2017 and PCI in 2018. I have reviewed the most recent CT imaging with her and her husbandwhich shows no evidence of disease progression. Since her imaging is stable, we will have her return for followup with CT CAP and bMRI in one year. We will continue to follow the lesion on the distaltransverse on scans but is very unlikely to be malignant in nature. I have answered all of the questions of the patient and her . They are in agreement with the plan. They know to call in the interim with any questions, concerns, or worsening symptoms. Ama Zavaleta MD FACP infectious disease technician Division of Oncology [facility] in [place] Insole And Outsole Splitter completed by using M*Modal Fluency Direct speaking software, therefore, transcriptionvariances may occur. documented in this encounter Plan of Treatment Not on file documented as of this encounter Results * (ABNORMAL) Comprehensive metabolic panel (03/06/2024 10:08 AM CDT) Sodium 139 135 - 145 mmol/L Comment:Testing performed by : [facility], [address] [place] [phone] Potassium, pl 3.0(L) 3.3 - 4.9 mmol/L [facility] Comment:Testing performed by : [facility], [address] [place] [phone] Chloride 95(L) 97 - 110 mmol/L [facility] Comment:Testing performed by : [facility], [address] [place] [phone] CO2 35(H) 22 - 32 mmol/L [facility] Comment:Testing performed by : [facility], [address] [place] [phone] Anion gap 9 2 - 15 mmol/L [facility] Comment:Testing performed by : [facility], [address] [place] [phone] BUN 11 6 - 25 mg/dL [facility] Comment:Testing performed by : [facility], [address] [place] [phone] Creatinine 0.72 0.60 - 1.10 mg/dL [facility] Comment:Testing performed by : [facility], [address] [place] [phone] Glucose 116 70 - 199 mg/dL CERNER [...] classification and Diagnosis of Diabetes Diabetes Care 202; 46: S19-S40. Current interpretive data was last revised 2022. Testing performed by: [facility], [address] [place] [phone] Calcium 9.5 8.5 - 10.3 mg/dL [facility] Comment:Testing performed by : [facility], [address] [place] [phone] Bilirubin, total 0.7 0.1 - 1.2 mg/dL [facility] Comment:Testing performed by : [address] [phone] Protein, pl 7.4 6.5 - 8.5 g/dL ARSENIO [facility]LL[facility] Comment:Testing performed by : [facility], [address] [place] [phone] Albumin 4.2 3.5 - 5.0 g/dL [facility]IO [facility] Comment:Testing performed by : [facility], [address] [place] [phone] Alk phos 111 40 - 130 Units/L A[facility]ENIO [facility]LLA Comment:Testing performed by : [facility], [address] [place] [phone] ALT 24 7 - 45 Units/L ARSENIO [facility]LLA Comment:Testing performed by : [facility], [address] [place] [phone] AST 22 10 - 45 Units/L A[facility]ENIO [facility]LLA Comment:Testing performed by : [facility], [address] [place] [phone] Blood 03/06/2024 10:0 8 AM CDT 03/06/2024 10:09 AM CDT us Ama Zavaleta MD LAB BLOOD ORDERABLES Final Result ARSENIO BELLA [facility] Department [place] [address] * CBC with auto differential (03/06/2024 10:08 AM CDT) WBC 6.4 3.8 - 9.8 K/cumm Comment:Testing performed by : [facility], [address] [place] [phone] Hgb 14.3 12.1 - 15.1 g/dL ARSENIO BELLA Comment:Testing performed by : [facility], [address] [place] [phone] Hct 41.9 36.1 - 44.3 % ARSENIO BELLA Comment:Testing performed by : [facility], [address] [place] [phone] Plt 219 140 - 440 K/cumm ARSENIO BELLA Comment:Testing performed by : [facility], [address] [place] [phone] MPV 7.8 6.8 - 10.4 fL [facility] Comment:Testing performed by : [facility], [address] [place], [place] [phone] RBC 4.46 3.90 - 5.00 M/cumm [facility]ERW[facility]TON [facility] Comment:Testing performed by : [facility], [address] [place], [place] [phone] MCV 94.0 80.0 - 97.6 fL ARSENIO BJ Comment:Testing performed by : [facility], [address] [place], [place] [phone] MCH 32.1 26.7 - 33.7 pg [facility] Comment:Testing performed by : [facility], [address] [place], [place] [phone] MCHC 34.2 32.7 - 35.5 g/dL [facility] Comment:Testing performed by : [facility], [address] [place], [place] [phone] RDW CV 13.8 11.8 - 14.6 % [facility]ENIO [facility] Comment:Testing performed by : [facility], [address] [place] [phone] NRBC abs 0.00 0.00 - 0.01 K/cumm ARSENIO [facility] Comment:Testing performed by : [facility], [address] [place] [phone] Blood 03/06/2024 10:0 8 AM CDT 03/06/2024 10:09 AM CDT us Ama Zavaleta MD LAB BLOOD ORDERABLES Final Result [facility] Department [place] [address] * MRI Brain W WO Contrast (02/29/2024 [...] Electronically signed by ??Randy Falcon D.O. AP: ANDRZEJ D: ??02/29/2024 10:25 AM T: ??02/29/2024 10:25 AM Report ID: [id number] Reading Location: ??[id number] Procedure Note Randy Falcon, DO - 02/29/2024 [...] 10:25 AM - Electronically signed by Randy Falcon D.O. AP: ANDRZEJ Report ID: [id number] Reading Location: [id number] Ama Zavaleta MD IMG MRI PROCEDURES Fi nal Result * CT Chest Abdomen Pelvis W Contrast [...] Electronically signed by ??Dede Ferraro M.D. TW: EVERARDO D: ??03/02/2024 8:47 AM T: ??03/02/2024 8:47 AM Report ID: [id number] Reading Location: ??[id number] Procedure Note Dede Ferraro MD - 03/02/2024 [...] stable in size dating back to at [id number] suggesting a benign etiology. There is no [...] Electronically signed by Dede Ferraro M.D. TW: EVERARDO Report ID: [id number] Reading Location: [place] [address] Ama Zavaleta MD IMG CT PROCEDURES Fin al Result documented in this encounter Visit Diagnoses Diagnosis Malignant neoplasm of upper lobe, right bronchus or lung (HCC)- Primary Malignant neoplasm of upper lobe, right bronchus or lung (HCC) Malignant neoplasm of upper lobe, right bronchus or lung (HCC) documented in this encounter Discontinued Medications Medication Sig Discontinue Reason Start Date End Da te ADVAIR DISKUS 250-50 mcg/dose diskus inhaler INL 1 PUFF PO TWICE DAILY. RM AFTER U Alternate therapy 01/11/2018 03/08/2023 albuterol HFA (PROVENTIL HFA,VENTOLIN HFA,PROAIR HFA) 90 mcg/actuation inhaler every 4 hours. Alternate therapy 03/08/2023 COMBIVENT RESPIMAT 20-100 mcg/actuation inhalerIndications:Chron ic Obstructive Pulmonary Disease with Bronchospasms INL 1 PUFF PO QID Therapy completed 01/11/2018 03/08/2023 cyanocobalamin (Vitamin B-12) 1,000 mcg tablet daily fluticasone (FLONASE) 50 mcg/actuation nasal spray daily. Therapy completed 03/08/2023 LORazepam (ATIVAN) 0.5 mg tablet 1 tab po q 6-8 hours prn nausea. Try this medication third Therapy completed 05/24/2017 03/08/2023 metroNIDAZOLE 0.75 % lotion GRETEL EXT AA QD Therapy completed 10/14/2018 03/08/2023 ondansetron (ZOFRAN) 8 mg tablet TAKE 1 TABLET EVERY 8 HOURS PRN nausea,try this medication FIRST Therapy completed 05/24/2017 03/08/2023 oxyCODONE-acetaminophen (PERCOCET) 5-325 mg per tablet oxycodone-acetaminop hen 5 mg-325 mg tablet Therapy completed 03/08/2023 predniSONE (DELTASONE) 10 mg tablet pack prednisone 10 mg tablets in a dose pack Take by oral route. day 1: 60 mg, day2: 50mg, day3:40mg, day4: 30mg, day5:20mg, day6:10 then finished Therapy completed 03/08/2023 predniSONE (DELTASONE) 20 mg tablet TK 1 T PO BID FOR 7 DAYS Therapy completed 01/11/2018 03/08/2023 prochlorperazine (COMPAZINE) 10 mg tablet 1 tab po q 6-8 hrs prn nausea. Try this medication second Therapy completed 05/24/2017 03/08/2023 traMADoL (ULTRAM) 50 mg tablet tramadol 50 mg tablet TAKE 1 TABLET BY MOUTH TWICE DAILY NEEDED FOR KNEE PAIN Therapy completed 03/08/2023 documented as of this encounter Orders Appointment Requests Count Last Ordered Date Fi rst Ordered Date ONCBCN CLINIC APPOINTMENT REQUEST 2 024 03/08/2023 ON[facility]N LAB APPOINTMENT 1 03/06/2024 documented in this encounter Care Teams Scientific Informatics Project Leader Relationship Specialty Start Date End Date Paula Robles NP PCP - General 05/31/17 Addy Mathur MD PhD [address] [place] [address] Radiation Oncologist Radiation Oncology 03/10/18 Ama Zavaleta MD [address] [facility] [address] [place] [address] Medical Oncologist/Md Physician Dermatologist Medical Oncology 10/20/22 documented as of this encounter
--- OUTSIDE RECORDS SUMMARY | 2024-08-06 17:33 | XMS_ITS | Encounter Summary ---
Author Organization [facility] Address [address] [place] [address] Phone Care Team Providers Care Physical Director Name Role Phone Paula Robles OLIVE PICKER Primary Care Provider + Addy Mathur MD PhD Unavailable + [phone] Ama Zavaleta MD Unavailable Katlin Martinez OLIVE PICKER Unavailable [phone] Reason for Referral * Diagnostic Imaging (Routine) - Authorized Specialty Diagnoses / Procedures Referred By Alan bangura Referred To Contact Radiology Diagnoses Malignant neoplasm of upper lobe, right bronchus or lung (HCC) Procedures MRI Brain W WO Contrast Ama Zavaleta MD [address] [facility] [address] [place] [address] Phone: tel: fax: [address] [phone] Referral ID Status Reason Start Date Expiration Date V isits Requested Visits Authorized [id number] Authorized 03/06/2024 04/05/2025 1 1 * Diagnostic Imaging (Routine) - Authorized Specialty Diagnoses / Procedures Referred By Alan bangura Referred To Contact Radiology Diagnoses Malignant neoplasm of upper lobe, right bronchus or lung (HCC) Procedures CT Chest Abdomen Pelvis W Contrast Ama Zavaleta MD [address] [facility] [address] [place] [address] Phone: tel: fax: [address] [phone] Referral ID Status Reason Start Date Expiration Date V isits Requested Visits Authorized [id number] Authorized 03/06/2024 04/05/2025 1 1 Encounter Details Date Type Department Care Team (Late st Contact Info) Description 03/06/2024 11:00 AM CDT Office Visit [facility] Oncology 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 Tumor specimen demonstrates CD56, synaptophysin, cytokeratin, and [...] Subjective Interval History: Ms. Morgan is a 73 y.o. 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 She states that she has been feeling fine without any new medical issues. She denies any worsening shortness of breath [...] Brother Social History Tobacco Use Smoking status: Not on file Smokeless tobacco: Never Substance and Sexual Activity Drug use: Not on file Sexual activity: Not on file Alcohol Use: Not on file Allergies Allergen Reactions Rosuvastatin Unknown and Other (See comments) Current Outpatient Medications: yyhzyzckmxf-nidhoshwz-guqtelyc (TRELEGY ELLIPTA) 100-62.5-25 mcg inhaler, Inhale 1 [...] T PO D, Disp: , Rfl: 2 multivitamin tablet, daily. (Patient not taking: Reported on 02/03/2021), Disp: , Rfl: potassium chloride ER 20 mEq CR tablet, Take 1 tablet (20 mEq total) by mouth 2 (two) times a day, Disp: 60 tablet, Rfl: 3 simvastatin (ZOCOR) 20 mg tablet, TK 1 T PO HS, Disp: , Rfl: 0 REVIEW OF SYSTEMS: Per interval history, all other systems were reviewed and negative. PERFORMANCE STATUS: ECOG PS 1 Objective Vitals: Most Recent : Vitals BP 141/79 (BP Location: Left arm) Pulse 92 Temp 36.3 ??C (97.3 ??F) (Transdermal) Resp 18 Wt 107.9 kg (237 lb 12.8 oz) SpO2 90% BMI 44.84 kg/m?? PHYSICAL EXAM: In no acute distress HEENT: sclera anicteric, no palor, mucous membranes moist, oropharynx clear Lymphatics: no cervical or supraclavicular adenopathy Chest: clear to auscultation bilaterally Heart: regular rate and rhythm Abdomen: soft, non-tender Extremities: no edema Neurologic: Alert, speech normal, no gross motor or sensory deficits noted Psychiatric exam: Appropriate affect Skin: no rashes or bruises Lab/Radiology/Diagnostic Review: CBC: Lab Results Component Value Date WBC 6.4 03/06/2024 HGB 14.3 03/06/2024 HCT 41.9 03/06/2024 MCV 94.0 03/06/2024 LABPLAT 219 03/06/2024 NEUTROABS 3.8 03/06/2024 CMP: Lab Results Component Value Date SODIUM 139 03/06/2024 POTASSIUM 3.0 (L) 03/06/2024 CO2 35 (H) 03/06/2024 BUNSER 11 03/06/2024 GLUCOSE 116 03/06/2024 CREATININE 0.72 03/06/2024 CALCIUM 9.5 03/06/2024 CHLORIDE 95 (L) 03/06/2024 ALBUMIN 4.2 03/06/2024 AST 22 03/06/2024 ALT 24 03/06/2024 ALKPHOS 111 03/06/2024 BILITOT 0.7 03/06/2024 PROT 7.4 03/06/2024 ANIONGAP 9 03/06/2024 Lab Results Component Value Date TSH 4.94 (H) 03/06/2024 FREET4 1.27 03/06/2024 Radiology: CT Chest Abdomen Pelvis W Contrast 02/29/2024 Narrative EXAM DESCRIPTION: CT CHEST ABDOMEN PELVIS [...] Scattered subsegmental scarring/atelectasis is similar. There is no pneumonic consolidation. 2 mm nodule in the periphery of the left upper lobe on image number 24 is stable. There is no new suspicious pulmonary nodule within either lung. PLEURA: No effusion. No pneumothorax. MEDIASTINUM/ERIK: The visualized thyroid gland is unremarkable. There is no new mediastinal or hilar lymphadenopathy. The [...] disc disease is noted. There is no acute osseous abnormality. Osteoarthritis of the shoulders, right greater [...] kidneys are symmetric in size. There is a lesion along the medial cortex of the interpolar aspect of the right kidney anteriorly on image number 61 measuring 1.3 cm, stable compared to prior examinations. Hounsfield units are 21. Technically this lesion is indeterminate though has remained stable in size dating back to at least 2019 suggesting a benign etiology. There is no new suspicious lesion in either kidney. There is no hydronephrosis or hydroureter. No obstructing urolithiasis. The bladder is completely decompressed, limiting evaluation. GI: No dilated bowel loops. No obvious wall thickening. Normal appendix. The colon is largely decompressed. There is diverticulosis, without diverticulitis. PERITONEUM: There is no free intraperitoneal air. There is no free fluid. There is a fat containing hernia at the level of the umbilicus, similar in size compared to the most recent prior study RETROPERITONEUM: There is no retroperitoneal lymphadenopathy REPRODUCTIVE: No significant abnormality. VASCULATURE ABDOMEN: The abdominal aorta is atherosclerotic, without aneurysm MUSCULOSKELETAL ABDOMEN PELVIS: There is thoracic and lumbar spondylosis. No acute osseous abnormality. Punctate sclerotic focus within the right aspect of T11 is stable, likely a bone island. Tiny sclerotic foci within the pelvis are stable as well, presumably bone islands. OTHER: No significant abnormality. Impression Stable post treatment changes within the right lung. No evidence of metastatic disease within the chest, abdomen or pelvis. Additional findings as above, stable. THIS IS AN ELECTRONICALLY VERIFIED FINAL REPORT 03/02/2024 8:47 AM - Electronically signed by Dede Ferraro M.D. TW: EVERARDO Report ID: [id number] Reading Location: [place] [address] MRI Brain W WO Contrast 02/29/2024 Narrative EXAM DESCRIPTION: MRI BRAIN W WO CONTRAST REASON FOR STUDY: eval for mets eval for mets, Malignant neoplasm of upper lobe, right bronchus or lung. Completed chemo and radiation. TECHNIQUE: Multiplanar imaging includes noncontrast T1, T2, FLAIR, diffusion with ADC map and post contrast T1 sequences. Additional sequence(s) sensitive to blood products. Images stored on PACS. CONTRAST TYPE/DOSE: 20mL of GADOTERATE MEGLUMINE 0.5 MMOL/ML INTRAVENOUS SOLUTION (SO) injected via intravenous COMPARISON: MRI brain dated 07/17/2022, 07/25/2021, 02/01/2020 and 08/07/2020. FINDINGS: There is no diffusion restriction to suggest acute/recent infarction. No parenchymal susceptibility signal to indicate blood degradation products. There is cerebral and cerebellar parenchymal volume loss. No hydrocephalus. The basilar cisterns are maintained. 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 Elsewhere the subcortical and periventricular white [...] air cells. The mastoid air cells are predominantly clear. Impression 1. No enhancing parenchymal mass to suggest metastatic disease. 2. Additional findings as above. THIS IS AN ELECTRONICALLY VERIFIED FINAL REPORT 02/29/2024 10:25 AM - Electronically signed by Randy Falcon D.O. AP: ANDRZEJ Report ID: [id number] Reading Location: [id number] I independently reviewed the images and the report from 02/29/24. Pathology: None Assessment/Plan Mrs. Morgan is a 73 year old woman with limited stage small cell lung cancer s/p concurrent chemoradiation in 2017 and PCI in 2018. I have reviewed the most recent CT and brain MRI imaging with her and her which shows no evidence of disease progression. Since her imaging is stable, we will have her return for followup with CT CAP and bMRI in one year. We will continue to follow the lesion on the distal transverse on scans but is very unlikely to be malignant in nature. I have answered all of the questions of the patient and her . They are in agreement with the plan. They know to call in the interim with any questions, concerns, or worsening symptoms. Ama Zavaleta MD [facility] director smb sales Division of Oncology [facility] of Medicine in [place] Director Of Quality completed by using [employer] Direct speaking software, therefore, transcriptionvariances may occur. documented in this encounter Plan of Treatment Scheduled Orders Name Type Priority Associated Diagnoses Order Schedule CBC with auto differential Lab Routine Malignant neoplasm of upper lobe, right bronchus or lung (HCC) Expected: 02/26/2025, Expires: 03/03/2025 Comprehensive metabolic panel Lab STAT Malignant neoplasm of upper lobe, right bronchus or lung (HCC) Expected: 02/26/2025, Expires: 03/03/2025 CT Chest Abdomen Pelvis W Contrast Imaging Schedule Routine, Read Routine (OP Routine) Malignant neoplasm of upper lobe, right bronchus or lung (HCC) Expected: 02/22/2025, Expires: 03/03/2025 MRI Brain W WO Contrast Imaging Schedule Routine, Read Routine (OP Routine) Malignant neoplasm of upper lobe, right bronchus or lung (HCC) Expected: 02/22/2025, Expires: 03/03/2025 documented as of this encounter Results * Lipid panel (03/06/2024 10:08 AM CDT) [...] on 2018. Triglycerides 149 <=149 mg/dL [facility] Comment: Interpretive Data Ages < or = [...] revised on 2018. HDL 61 >=40 mg/dL [facility] Comment: Interpretive Data Ages < or = [...] on 2018. LDL, calculated 102 <=129 mg/dL [facility] Comment: Interpretive Data Ages < or = [...] revised on 2018. Non-HDL Cholesterol 132 mg/dL [facility] Comment: Interpretive Data Ages < or = [...] last revised on 2018. Chol/HDL ratio 3 [facility] Blood 03/06/2024 10:0 8 AM CDT 03/06/2024 10:57 AM CDT us Ama aZvaleta MD LAB BLOOD ORDERABLES Final Result [facility] [place] [address] * (ABNORMAL) Thyroid Function Cloud (03/06/2024 10:08 AM CDT) TSH 4.94(H) 0.30 - 4.20 mcIUnit/mL Blood 03/06/2024 10:0 8 AM CDT 03/06/2024 10:57 AM CDT Ama Zavaleta MD LAB BLOOD ORDERABLES Final Result Performing Organization Address City[facility] Co de Phone Number [facility] [place] [address] documented in this encounter Visit Diagnoses Diagnosis Malignant neoplasm of upper lobe, right bronchus or lung (HCC)- Primary Peripheral vascular disease (HCC) Unspecified peripheral vascular disease Obesity, morbid (HCC) Morbid obesity Pulmonary hypertension (HCC) Other chronic pulmonary heart diseases documented in this encounter Orders Appointment Requests Count Last Ordered Date Fi rst Ordered Date ONCBCN CLINIC APPOINTMENT REQUEST 2 024 ONCBCN LAB APPOINTMENT 1 03/06/2024 documented in this encounter Care Teams Physical Director Relationship Specialty Start Date End Date Paula Robles NP PCP - General 05/31/17 Addy Mathur MD PhD [address] [place] [address] Radiation Oncologist Radiation Oncology 03/10/18 Ama Zavaleta MD [address] [facility] [address] [place] [address] Medical Oncologist/Chyron Operator Medical Oncology 10/20/22 Katlin Martinez NP [address] [facility] [place] [place] [address] Nurse Practitioner 03/06/24 documented as of this encounter
--- OUTSIDE RECORDS SUMMARY | 2024-08-06 17:33 | XMS_ITS | Encounter Summary ---
Author Organization [facility] Address [address] [place] [address] Phone Care Team Providers Care Oncology Radiation Physician Name Role Phone Paula Robles STAY CUTTER Primary Care Provider + Addy Mathur MD PhD Unavailable [phone] Encounter Details Date Type Department Care Team (Latest Contact Info) Description 09/14/2022 Orders Only [facility] Scanning, Provider Social History Tobacco Use Types Packs/Day Years Used Date Smoking Tobacco: Former Cigarettes Smokeless Tobacco: Never Comments No Sex and Gender Information Value Date Recorded Sex Assigned at Not on file Legal Sex Female 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 Gender Identity Not on file Sexual Orientation Not on file documented as of this encounter Plan of Treatment Not on file documented as of this encounter Procedures Procedure Name Priority Date/Time Associated Diagnosis Comments SCAN - RADIOLOGY/IMAGING 09/14/2022 documented in this encounter Results * SCAN - RADIOLOGY/IMAGING (09/14/2022) Anatomical Region Laterality Modality Other us Provider Scanning Final Result documented in this encounter Visit Diagnoses Not on filedocumented in this encounter Care Teams Oncology Radiation Physician Relationship Specialty Start Date End Date Paula Robles NP PCP - General 05/31/17 Addy Mathur MD PhD [address] [place] [address] Radiation Oncologist Radiation Oncology 03/10/18 documented as of this encounter
--- OUTSIDE RECORDS SUMMARY | 2024-08-06 17:34 | XMS_ITS | Encounter Summary ---
Author Organization [facility] Healthcare Address [address] [place] [address] Care Team Providers Care Crop Or Livestock Tenant Farmer Name Role Phone Paula Robles EVENTS MANAGER Primary Care Provider + Zeeshan Rain MD Unavailable [phone] Addy Mathur MD PhD Unavailable + [phone] Encounter Details Date Type Department Care Team (Latest Contact Info) Description 01/26/2022 8:11 AM CDT - 01/26/2022 11:59 PM CDT Hospital Encounter [facility] Advanced Medicine [facility] Advanced Medicine ([facility]) [address] [place] [phone] Malignant neoplasm of upper lobe, right bronchus or lung (HCC) Discharge Disposition: Discharge to home or self care Social History Tobacco Use Types Packs/Day Years Used Date Smoking Tobacco: Former Cigarettes Smokeless Tobacco: Never Comments No Sex and Gender Information Value Date Recorded Sex Assigned at Not on file Legal Sex Female 1:02 AM PIT HAND Gender Identity Not on file Sexual [...] 90 mcg/actuation inhaler every 4 hours. 3 amoxicillin-clavula nehemias (AUGMENTIN) 875-125 mg per tablet TK 1 T PO Q 12 H FOR 10 DAYS 0 01/11/2018 2 azithromycin (ZITHROMAX) 250 mg tablet 0 09/16/2018 2 COMBIVENT RESPIMAT 20-100 mcg/actuation inhalerIndications: Chronic Obstructive Pulmonary Disease with Bronchospasms INL 1 PUFF PO QID 5 01/11/2018 3 cyanocobalamin (Vitamin B-12) 1,000 mcg tablet daily 03/08/20 2 3 fluticasone (FLONASE) 50 mcg/actuation nasal spray daily. 3 fluticasone-umeclid in-vilanter (Trelegy Ellipta) 100-62.5-25 mcg inhaler Trelegy Ellipta 2 LORazepam (ATIVAN) 0.5 mg tablet 1 tab [...] Priority Date/Time Associated Diagnosis Comments EGFR STAT 01/26/2022 10:11 AM CDT Malignant neoplasm of upper lobe, right bronchus or lung (HCC) DIFFERENTIAL AUTO Routine 01/26/2022 10: 11 AM CDT Malignant neoplasm of upper lobe, right bronchus or lung (HCC) CBC WITH AUTO DIFFERENTIAL Routine 01/26/2022 10:11 AM CDT Malignant neoplasm of upper lobe, right bronchus or lung (HCC) COMPREHENSIVE METABOLIC PANEL STAT 01/26/2022 10:11 AM CDT Malignant neoplasm of upper lobe, right bronchus or lung (HCC) documented in this encounter Results * (ABNORMAL) eGFR (01/26/2022 10:11 AM CDT) [facility] eGFR 89(L) 90 - 130 mL/min/1. 73 m2 [facility] Comment: Interpretive Data Reference Interval [...] last reviewed 2021. Testing performed by: [facility], [address] [place] [phone] Blood 01/26/2022 10:1 1 AM CDT 01/26/2022 10:12 AM CDT Zeeshan Rain MD LAB BLOOD ORDERABLES F inal Result [facility] Department of Laboratories [place], [place] [id number] * Differential, auto (01/26/2022 10:11 AM CDT) Neutrophil abs 3.9 1.8 - 6.6 K/cumm [facility] Comment:Testing performed by : [facility], [address] [place] [phone] Lymphocyte abs 1.8 1.2 - 3.3 K/cumm ARSENIO BELLAH Comment:Testing performed by : [facility], [address] [place] [phone] Monocyte abs 0.5 0.2 - 1.2 K/cumm [facility] Comment:Testing performed by : [facility], [address] [place] [phone] Eosinophil abs 0.2 0.0 - 0.5 K/cumm [facility] Comment:Testing performed by : [facility], [address] [place] [phone] Basophil abs 0.1 0.0 - 0.2 K/cumm [facility] Comment:Testing performed by : [facility], [address] [place] [phone] Neutrophil pct 60.5 % [facility] Comment: Interpretive Data Percent cell count reference ranges are not reported, since discordance with absolute values may lead to misinterpretation of CBC data. Current Interpretive Data was last revised on 2017. Testing performed by: [facility], [address] [place] [phone] Lymphocyte pct 27.5 % [facility] Comment: Interpretive Data Percent cell count reference ranges are not reported, since discordance with absolute values may lead to misinterpretation of CBC data. Current Interpretive Data was last revised on 2017. Testing performed by: [facility], [address] [place] [phone] Monocyte pct 8.4 % [facility] Comment:Testing performed by : [address] [phone] Eosinophil pct 2.7 % [facility] Comment:Testing performed by : [facility], [address] [place] [phone] Basophil pct 0.9 % [facility] Comment:Testing performed by : [address] [phone] Blood 01/26/2022 10:1 1 AM CDT 01/26/2022 10:12 AM CDT us Zeeshan Rain MD LAB BLOOD ORDERABLES F inal Result [facility] Department [place] [address] * CBC with auto differential (01/26/2022 10:11 AM CDT) WBC 6.5 3.8 - 9.8 K/cumm [facility] Comment:Testing performed by : [facility], [address] [place] [phone] Hgb 13.4 12.1 - 15.1 g/dL [facility] Comment:Testing performed by : [facility], [address] [place] [phone] Hct 39.1 36.1 - 44.3 % [facility] Comment:Testing performed by : [facility], [address] [place], [place] [phone] Plt 226 140 - 440 K/cumm [facility] Comment:Testing performed by : [facility], [address] [place] [phone] MPV 7.6 6.8 - 10.4 fL [facility] Comment:Testing performed by : [address] [phone] RBC 4.25 3.90 - 5.00 M/cumm [facility] Comment:Testing performed by : [address] [phone] MCV 91.9 80.0 - 97.6 fL [facility] Comment:Testing performed by : [address] [phone] MCH 31.5 26.7 - 33.7 pg [facility] Comment:Testing performed by : [address] [phone] MCHC 34.3 32.7 - 35.5 g/dL ARSENIO [facility]J Comment:Testing performed by : [address] [phone] RDW CV 13.7 11.8 - 14.6 % [facility] Comment:Testing performed by : [address] [phone] NRBC abs 0.00 0.00 - 0.01 K/cumm ARSENIO BELLA Comment:Testing performed by : [facility], [address] [place] [phone] Blood 01/26/2022 10:1 1 AM CDT 01/26/2022 10:12 AM CDT Zeeshan Rain MD LAB BLOOD ORDERABLES F inal Result A[facility]ENIO [facility]LL[facility] Department [place] [address] * (ABNORMAL) Comprehensive metabolic panel (01/26/2022 10:11 AM CDT) Sodium 140 135 - 145 mmol/L ARSENIO BELLA Comment:Testing performed by : [facility], [address] [place] [phone] Potassium, pl 3.1(L) 3.3 - 4.9 mmol/L A[facility]ENIO BELLA Comment:Testing performed by : [facility], [address] [place] [phone] Chloride 95(L) 97 - 110 mmol/L A[facility]ENIO BELLA Comment:Testing performed by : [facility], [address] [place] [phone] CO2 37(H) 22 - 32 mmol/L A[facility]ENIO BELLA Comment:Testing performed by : [facility], [address] [place] [phone] Anion gap 8 2 - 15 mmol/L A[facility]ENIO BELLA Comment:Testing performed by : [facility], [address] [place] [phone] BUN 13 8 - 25 mg/dL A[facility]ENIO BELLA Comment:Testing performed by : [facility], [address] [place] [phone] Creatinine 0.72 0.60 - 1.10 mg/dL A[facility]ENIO BELLA Comment:Testing performed by : [facility], [address] [place] [phone] Glucose 100 70 - 199 mg/dL ARSENIO BELLA Comment: [...] classification and Diagnosis of Diabetes Diabetes Care 2017;40 (Suppl. 1):S11. Current interpretive data was last revised 2017. Testing performed by: [facility], [address] [place] [phone] Calcium 9.5 8.5 - 10.3 mg/dL [facility] Comment:Testing performed by : [address] [phone] Bilirubin, total 0.7 0.1 - 1.2 mg/dL [facility] Comment:Testing performed by : [address] [phone] Protein, pl 7.3 6.5 - 8.5 g/dL [facility] Comment:Testing performed by : [address] [phone] Albumin 4.0 3.5 - 5.0 g/dL [facility] Comment:Testing performed by : [address] [phone] Alk phos 96 40 - 130 Units/L [facility] Comment:Testing performed by : [address] [phone] ALT 19 7 - 45 Units/L [facility] Comment:Testing performed by : [address] [phone] AST 19 10 - 45 Units/L [facility] Comment:Testing performed by : [address] [phone] Blood 01/26/2022 10:1 1 AM CDT 01/26/2022 10:12 AM CDT us Zeeshan Rain MD LAB BLOOD ORDERABLES F inal Result [facility] Department [place] [address] documented in this encounter Visit Diagnoses Diagnosis Malignant neoplasm of upper lobe, right bronchus or lung (HCC) documented in this encounter Care Teams Crop Or Livestock Tenant Farmer Relationship Specialty Start Date End Date Paula Robles NP PCP - General 05/31/17 Zeeshan Rain MD Medical Oncologist/Director Corporate Medical Oncology 02/11/18 08/23/22 Addy Mathur MD PhD [address] [place] [address] Radiation Oncologist Radiation Oncology 03/10/18 documented as of this encounter
--- OUTSIDE RECORDS SUMMARY | 2024-08-06 17:34 | XMS_ITS | Encounter Summary ---
Author Organization [facility] Healthcare Address [address] [place] [address] Care Team Providers Care Science Interpreter Name Role Phone MoraviaPaula joseph Eleni DECORATING EQUIPMENT SETTER Primary Care Provider + Zeeshan Rain MD Unavailable [phone] Addy reyna MD PhD Unavailable [phone] Reason for Referral * Diagnostic Imaging (Routine) - Closed Specialty Diagnoses / Procedures Referred By Alan bangura Referred To Contact Radiology Diagnoses Malignant neoplasm of upper lobe, right bronchus or lung (HCC) Procedures CT Chest Abdomen Pelvis W Contrast Zeeshan Rain MD Phone: tel: fax: [address] [phone] Referral ID Status Reason Start Date Expiration Date Visits Re quested Visits Authorized [id number] Closed 01/26/2022 02/25/2023 1 1 ICE LOSS CONTROL CONSULTANT Reason for Visit * Diagnostic Imaging (Routine) - Closed Specialty Diagnoses / Procedures Referred By Alan bangura Referred To Contact Radiology Diagnoses Malignant neoplasm of upper lobe, right bronchus or lung (HCC) Procedures CT Chest Abdomen Pelvis W Contrast Zeeshan Rain MD Phone: tel: fax: [facility] [address] [place] [address] Referral ID Status Reason Start Date Expiration Date Visits Re quested Visits Authorized [id number] Closed 01/26/2022 02/25/2023 1 1 Encounter Details Date Type Department Care Team (Latest Contact Info) Description 07/17/2022 8:21 AM SERVICE LOSS CONTROL CONSULTANT Hospital Encounter [facility] [place] [address] [place], [place] [id number] Malignant neoplasm of upper lobe, right bronchus or lung (HCC) Discharge Disposition: Discharge to home or self care Social History Tobacco Use Types Packs/Day Years Used Date Smoking Tobacco: Former Cigarettes Smokeless Tobacco: Never Comments No Sex and Gender Information Value Date Recorded Sex Assigned at Not on file Legal Sex Female 1:02 AM SERVICE LOSS CONTROL CONSULTANT Gender Identity Not on file Sexual Orientation [...] CONTRAST Schedule Routine, Read Routine (OP Routine) 07/17/2022 9:12 AM SERVICE LOSS CONTROL CONSULTANT Malignant neoplasm of upper lobe, right bronchus or lung (HCC) POCT CREATININE FOR CONTRAST EVALUATION Routine 07/16/2022 12:40 PM SERVICE LOSS CONTROL CONSULTANT documented in this encounter Results * CT Chest Abdomen Pelvis W Contrast (07/17/2022 9:12 AM SERVICE LOSS CONTROL CONSULTANT) Anatomical Region Laterality Modality Body N/A Computed Tomogra phy 07/18/2022 9:19 AM SERVICE LOSS CONTROL CONSULTANT Narrative 07/18/2022 9:36 AM SERVICE LOSS CONTROL CONSULTANT EXAM DESCRIPTION: ?? CT CHEST ABDOMEN PELVIS W CONTRAST REASON FOR STUDY: ?? History of right upper lobe lung cancer status post radiation completed in July 2017 presents for disease surveillance. TECHNIQUE: CT scan of the chest, abdomen, and pelvis performed with intravenous and ?? without ??oral contrast using helical scanning technique with dynamic intravenous contrast injection. Reconstructed coronal and sagittal MPR images reviewed. All images stored on PACS. ??Automated exposure control was used as a dose optimization technique for this examination. CONTRAST TYPE/DOSE: ?? 100 mL Optiray 350 ?? COMPARISON: ?? 01/23/2022 FINDINGS: CHEST LUNGS: ?? 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 ??Moderate emphysema is redemonstrated, stable. ??Multiple peripheral tree-in-bud and hazy ground-glass seen on prior study have resolved, compatible with a resolved infectious/inflammatory process. ??A 2 mm left upper lobe nodule on series 3, image 34 is stable, potentially a calcified granuloma. ??Another 3 mm left upper lobe nodule on image 23 is also unchanged. ??No new suspicious nodules or consolidations. ??Mild atelectasis noted in the lung bases. PLEURA: ?? No effusion. No pneumothorax. MEDIASTINUM/ERIK: ?? No identified masses or abnormal nodes. HEART: ?? Heart size is normal with no pericardial effusion. ??Mild mediastinal shift to the right due to right hemithoracic volume loss redemonstrated. VASCULATURE CHEST: ?? No thoracic aortic aneurysm or dissection. AXILLA: ?? No adenopathy. CHEST WALL: ?? No masses. ??No subcutaneous air. HARDWARE/LINES/TUBES: ?? None. MUSCULOSKELETAL CHEST: ?? No significant abnormality. ??A small bone island is again seen in the T11 vertebral body. ABDOMEN/PELVIS LIVER: ?? Normal size with moderate steatosis. ??No identified cystic or solid masses. GALLBLADDER: ?? Stones. No wall thickening or pericholecystic fluid. BILE DUCTS: ?? No intrahepatic or extrahepatic ductal dilatation. SPLEEN: ?? Normal size. ??No focal lesions. PANCREAS: ?? No identified cystic or solid masses. No significant calcifications. No adjacent inflammation or peripancreatic fluid collections. Pancreatic duct is not dilated. ?? ADRENALS: ?? Normal. KIDNEYS/URINARY TRACT: ?? A 1.2 cm hypoattenuating lesion in the medial right kidney is stable. ??No visualized stones. No hydronephrosis or hydroureter. Symmetric enhancement. ?Urinary bladder is unremarkable. GI: ?? No dilated bowel loops. No obvious wall thickening. ??Nonspecific submucosal fatty deposition of the terminal ileum is unchanged normal appendix. ??Multiple diverticula seen in descending and sigmoid colon without acute diverticulitis. PERITONEUM: ?? No ascites or free air. ?? Focal ill-defined area of mild mesenteric fat stranding is seen in the right upper quadrant measuring 4 x 2 cm on series 6, image 67, nestled between 2 small bowel loops, new from the prior study. ??A nodule adjacent to the distal transverse colon has mildly/progressively increased in size since 2019 and now measures 12 x 11 mm on series 6, image 41, most recently 11 x 10 mm on 01/23/2022. RETROPERITONEUM: ?? No mass or adenopathy. REPRODUCTIVE: ?? No significant abnormality. VASCULATURE ABDOMEN: ?? Moderate aortoiliac atherosclerotic calcifications. ??No abdominal aortic aneurysm. MUSCULOSKELETAL ABDOMEN PELVIS: ?? Fusion of L4/5 redemonstrated. ??No suspicious osseous lesions or acute fractures. OTHER: ?? A large fat containing umbilical hernia is unchanged. IMPRESSION: ?? 1. ??Stable post treatment change with volume loss in the medial right hemithorax. ??No evidence of recurrent or metastatic disease in the chest. 2. ??Interval resolution of diffuse tree-in-bud/hazy ground-glass in the bilateral lung compatible with resolved infection/inflammation. 3. ??A 1.2 cm left upper quadrant pericolonic mesenteric nodule has mildly increased in size since 2019, presumably benign given extremely slow growth rate. ??Continue attention on follow-up. 4. ??New focal 4 x 2 cm area of fat stranding in the right upper quadrant mesentery favored to represent focal fat necrosis or panniculitis. ??Isolated metastatic disease presenting in this fashion would be highly unusual. ?? Attention on follow-up is recommended. 5. ??Otherwise no evidence of metastatic disease in the abdomen and pelvis. 6. ??Cholelithiasis and colonic diverticulosis. ??A 1.2 cm hypoattenuating lesion in the medial aspect of the right kidney is stable, presumably a hyperdense cyst. ??Continue attention on follow-up recommended. REFERENCE: Unless otherwise specified, no follow-up imaging [...] Findings Committee. J Am Tushar Radiol. 2017 Mar;14(8):8214-0383. THIS IS AN ELECTRONICALLY VERIFIED FINAL REPORT 07/18/2022 9:36 AM - Electronically signed by ??Shawn Delgado M.D. ML: ML D: ??07/18/2022 9:36 AM T: ??07/18/2022 9:36 AM Report ID: [id number] Reading Location: ??[id number] Procedure Note Shawn Delgado MD - 07/18/2022 EXAM DESCRIPTION: CT CHEST ABDOMEN PELVIS W CONTRAST REASON FOR STUDY: History of right upper lobe lung cancer status post radiation completed in July 2017 presents for disease surveillance. TECHNIQUE: CT scan of the chest, abdomen, and pelvis performed with intravenous and without oral contrast using helical scanning techniquewith dynamic intravenous contrast injection. Reconstructed coronal and sagittalMPR images reviewed. All images stored on PACS. Automated exposure controlwas used as a dose optimization technique for this examination. 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 Moderate emphysema is redemonstrated, stable. Multiple peripheral tree-in-bud and hazy ground-glass seen on prior study have resolved, compatible with a resolved infectious/inflammatory process. A 2mm left upper lobe nodule on series 3, image 34 is stable, potentially a calcified granuloma. Another 3 mm left upper lobe nodule on image 23 isalso unchanged. No new suspicious nodules or consolidations. Mild atelectasis noted in the lung bases. PLEURA: No effusion. No pneumothorax. MEDIASTINUM/ERIK: No identified masses or abnormal nodes. HEART: Heart size is normal with no pericardial effusion. Mildmediastinal shift to the right due to right hemithoracic volume loss redemonstrated. VASCULATURE CHEST: No thoracic aortic aneurysm or dissection. AXILLA: No adenopathy. CHEST WALL: No masses. No subcutaneous air. HARDWARE/LINES/TUBES: None. MUSCULOSKELETAL CHEST: No significant abnormality. A small bone islandis again seen in the T11 vertebral body. ABDOMEN/PELVIS LIVER: Normal size with moderate steatosis. No identified cystic orsolid masses. GALLBLADDER: Stones. No wall thickening or pericholecystic fluid. BILE DUCTS: No intrahepatic or extrahepatic ductal dilatation. SPLEEN: Normal size. No focal lesions. PANCREAS: No identified cystic or solid masses. No significant calcifications. No adjacent inflammation or peripancreatic fluidcollections. Pancreatic duct is not dilated. ADRENALS: Normal. KIDNEYS/URINARY TRACT: A 1.2 cm hypoattenuating lesion in the medialright kidney is stable. No visualized stones. No hydronephrosis or hydroureter. Symmetric enhancement. Urinary bladder is unremarkable. GI: No dilated bowel loops. No obvious wall thickening. Nonspecific submucosal fatty deposition of the terminal ileum is unchanged normal appendix. Multiple diverticula seen in descending and sigmoid colonwithout acute diverticulitis. PERITONEUM: No ascites or free air. Focal ill-defined area of mild mesenteric fat stranding is seen in the right upper quadrant measuring 4 x2 cm on series 6, image 67, nestled between 2 small bowel loops, new fromthe prior study. A nodule adjacent to the distal transverse colon has mildly/progressively increased in size since 2019 and now measures 12 x 11mm on series 6, image 41, most recently 11 x 10 mm on 01/23/2022. RETROPERITONEUM: No mass or adenopathy. REPRODUCTIVE: No significant abnormality. VASCULATURE ABDOMEN: Moderate aortoiliac atherosclerotic calcifications.No abdominal aortic aneurysm. MUSCULOSKELETAL ABDOMEN PELVIS: Fusion of L4/5 redemonstrated. No suspicious osseous lesions or acute fractures. OTHER: A large fat containing umbilical hernia is unchanged. IMPRESSION: 1. Stable post treatment change with volume loss in themedial right hemithorax. No evidence of recurrent or metastatic disease in thechest. 2. Interval resolution of diffuse tree-in-bud/hazy ground-glass in the bilateral lung compatible with resolved infection/inflammation. 3. A 1.2 cm left upper quadrant pericolonic mesenteric nodule has mildly increased in size since 2019, presumably benign given extremely slowgrowth rate. Continue attention on follow-up. 4. New focal 4 x 2 cm area of fat stranding in the right upper quadrant mesentery favored to represent focal fat necrosis or panniculitis.Isolated metastatic disease presenting in this fashion would be highly unusual. Attention on follow-up is recommended. 5. Otherwise no evidence of metastatic disease in the abdomen andpelvis. 6. Cholelithiasis and colonic diverticulosis. A 1.2 cm hypoattenuating lesion in the medial aspect of the right kidney is stable, presumably a hyperdense cyst. Continue attention on follow-up recommended. REFERENCE: Unless otherwise specified, no follow-up imaging [...] Findings Committee. J Am Tushar Radiol. 2017 Mar;14(8):0332-3311. THIS IS AN ELECTRONICALLY VERIFIED FINAL REPORT 07/18/2022 9:36 AM - Electronically signed by Shawn Delgado M.D. ML: ML Report ID: [id number] Reading Location: [id number] Zeeshan Rain MD IMG CT PROCEDURES Sada l Result * (ABNORMAL) POCT creatinine for contrast evaluation (07/16/2022 12:40 PM SERVICE LOSS CONTROL CONSULTANT) Creatinine POC 0.40(L) 0.60 - 1.10 mg/dL ARSENIO CALVIN Comment:Testing performed by : [facility], [address] [place] [address]., [id number] Blood 07/16/2022 12:4 0 PM SERVICE LOSS CONTROL CONSULTANT 07/16/2022 12:40 PM SERVICE LOSS CONTROL CONSULTANT Zeeshan Rain MD POINT OF CARE TEST ORD ERABLES Final Result Performing Organization Address City/State/[facility] Co de Phone Number ARSENIO [address] [facility] [place] [address] documented in this encounter Visit Diagnoses Diagnosis Malignant neoplasm of upper lobe, right bronchus or lung (HCC) documented in this encounter Administered Medications Inactive Administered Medications - up to 3 most recent administrations Medication Order MAR Action Action Date Dose Rate Site ioversoL (OPTIRAY 350) syringe 100 mL 100 mL, intravenous, Once in imaging, contrast, Starting on Wed07/17/22 at 0909, For 1 dose Contrast Given 07/17/2022 9:10 AM SERVICE LOSS CONTROL CONSULTANT 100 mL Right Hand documented in this encounter Orders Medications Ordered That Adam ht Not Have Been Administered Count Last Ordered Date First Ordered Date ioversoL (OPTIRAY 350) syringe 100 mL 1 04/2022 documented in this encounter Care Teams Science Interpreter Relationship Specialty Start Date End Date Paula Robles NP PCP - General 05/31/17 Zeeshan Rain MD Medical Oncologist/Boarding Mother Medical Oncology 02/11/18 08/23/22 Addy Mathur MD PhD [address] [place] [address] Radiation Oncologist Radiation Oncology 03/10/18 documented as of this encounter
--- OUTSIDE RECORDS SUMMARY | 2024-08-06 17:34 | XMS_ITS | Encounter Summary ---
Author Organization [facility] Address [address] [place] [address] Phone Care Team Providers Care Material Specialist Name Role Phone Paula Robles NP Primary Care Provider + Zeeshan Rain MD Unavailable [phone] [facility] Un[facility] + [phone] Reason for Referral * Diagnostic Imaging (Routine) - Closed Specialty Diagnoses / Procedures Referred By Alan bangura Referred To Contact Radiology Diagnoses Malignant neoplasm of upper lobe, right bronchus or lung (HCC) Procedures CT Chest Abdomen Pelvis W Contrast Zeeshan Rain MD Phone: tel: fax: [address] [address] Referral ID Status Reason Start Date Expiration Date Visits Re quested Visits Authorized [id number] Closed 07/20/2022 08/19/2023 1 1 CTOR SUMMER S[facility]IONS * MRI/CAT/PET Scan (Routine) - Closed Specialty Diagnoses / Procedures Referred By Alan bangura Referred To Contact Radiology Diagnoses Malignant neoplasm of upper lobe, right bronchus or lung (HCC) Procedures CT abdomen with contrast Zeeshan Rain MD Phone: tel: fax: [address] [phone] Referral ID Status Reason Start Date Expiration Date Visits Re quested Visits Authorized [id number] Closed 07/20/2022 08/19/2023 1 1 CTOR [facility]MER S[facility]IONS Encounter Details Date Type Department Care Team (Late st Contact Info) Description 07/20/2022 10:40 AM DIRECTOR SUMMER SESSIONS Office Visit [facility] Oncology [address] [facility] 7th [place] [address] [place] [address] Zeeshan Rain MD [address] [facility] [address] [place] [address] Malignant neoplasm of upper lobe, right bronchus or lung (HCC) (Primary Dx) Social History Tobacco Use Types Packs/Day Years Used Date Smoking Tobacco: Former Cigarettes Smokeless Tobacco: Never Comments No Sex and Gender Information Value Date Recorded Sex Assigned at Not on file Legal Sex Female 1:02 AM DIRECTOR SUMMER S[employer] Gender Identity Not on file Sexual Orientation Not on file documented as of this encounter Last Filed Vital Signs Vital Sign Reading Time Taken Comments Blood Pressure 125/83 07/20/2022 10:40 AM DIRECTOR [employer]MER [employer]IONS Pulse 94 07/20/2022 10:40 AM DIRECTOR [employer]MER S[employer]IONS Temperature 36.7 ??C (98.1 ??F) 07/20/2022 10:[address] Respiratory Rate 18 07/20/2022 10:40 AM DIRECTOR SUMMER SESSIONS Oxygen Saturation 94% 07/20/2022 10:40 AM DIRECTOR SUMMER SESSIONS Inhaled Oxygen Concentration - - Weight 114.8 kg (253 lb) 07/20/2022 10:40 AM DIRECTOR [employer]MER S[employer]IONS Height 155.1 cm (5' 1.06 ) 07/20/2022 10:[address] Body Mass Index 47.71 07/20/2022 10:40 AM DIRECTOR SUMMER SESSIONS documented in this encounter Progress Notes * Kylie Falcon MD - 07/20/2022 10:40 AM CST [facility] DEPARTMENT OF MEDICINE - MEDICAL ONCOLOGY [address] 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 Tumor specimen demonstrates CD56, synaptophysin, cytokeratin, and TTF positivity. TREATMENT: 1. Concurrent chemoradiation with carboplatin and etoposide with radiation from 06/21/2017 to 08/03/2017, and chemotherapy from 05/28/2017 to 08/05/2017. 2. Prophylactic whole-brain radiation in 10 fractions from 09/13/2017 to 09/24/2017. Interval History: Gaby Morgan presents for a 6 month follow-up visit today, accompanied by her Fernandez. Gerardo feels well but reports her COPD is slightly worse. She does follow with pulmonology. She denies fevers, chills, abdominal pain, diarrhea. PAST MEDICAL HISTORY: 1. COPD/asthma. 2. History of community-acquired pneumonia. 3. Radiographic findings of pulmonary hypertension on CT scan. SOCIAL HISTORY: She is currently retired. 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 She lives in [place], [place]. She quit smoking in 2008 but smoked 1 to 2 packs per day for 40 years. She does not abuse alcohol or drugs. She lives with her . She has 2 children who are in good health. FAMILY HISTORY: Significant for colon cancer in her grandfather who was diagnosed in his 80s (paternal). Medications: Reviewed current medication list. Please refer to medical record for complete list of medications. Allergies Allergen Reactions Rosuvastatin Unknown and Other (See comments) Review of Systems: All other systems negative Vitals: BP: 125/83 Temp: 36.7 ??C (98.1 ??F) Temp src: Transdermal Pulse: 94 Resp: 18 SpO2: 94 % Height: 155.1 cm (5' 1.06 ) Weight: 114.8 kg (253 lb) Physical Exam: General: Alert, awake and oriented. Not in acute distress. Ambulatory. Gait is stable. HEENT: sclerae anicteric, no pallor, mucous membranes moist, Lymphatics: no cervical, axillary or supraclavicular adenopathy Chest: clear to auscultation without wheezes or adventitious sounds Heart: regular rate and rhythm. No murmurs. Abdomen: soft, non-tender. No organomegaly Extremities: no edema or erythema Neurologic: Alert, speech normal, no gross motor or sensory deficits noted Psychiatric exam: Appropriate affect Skin: no rashes or bruises, venous insufficiency changes in left > right lower extremity ECO Lab Review: CBC: Lab Results Component Value Date/Time WBC 5.8 07/20/2022 10:16 AM HGB 14.1 07/20/2022 10:16 AM HCT 42.1 07/20/2022 10:16 AM MCV 93.3 07/20/2022 10:16 AM NEUTROABS 3.2 07/20/2022 10:16 AM CMP: Lab Results Component Value Date/Time SODIUM 141 07/20/2022 10:16 AM POTASSIUM 3.9 07/20/2022 10:16 AM CO2 30 07/20/2022 10:16 AM BUNSER 13 07/20/2022 10:16 AM GLUCOSE 102 07/20/2022 10:16 AM CREATININE 0.67 07/20/2022 10:16 AM CALCIUM 9.9 07/20/2022 10:16 AM CHLORIDE 103 07/20/2022 10:16 AM ALBUMIN 4.0 07/20/2022 10:16 AM AST 19 07/20/2022 10:16 AM ALT 24 07/20/2022 10:16 AM ALKPHOS 101 07/20/2022 10:16 AM BILITOT 0.5 07/20/2022 10:16 AM PROT 7.0 07/20/2022 10:16 AM ANIONGAP 8 07/20/2022 10:16 AM Radiology: MRI Brain W WO Contrast Result Date: 07/17/2022 IMPRESSION: 1. No MR evidence of intracranial metastasis. 2. No acute intracranial abnormality withchronic findings detailed above. THIS IS AN ELECTRONICALLY VERIFIED FINAL REPORT 07/17/2022 11:27 AM- Electronically signed by Phong Hernandez M.D. AG: JEET Report ID: [id number] Reading Location: [place] [address] CT Chest Abdomen Pelvis W Contrast Result Date: 07/18/2022 IMPRESSION: 1. Stable post treatment change with volume loss in the medial right hemithorax. No evidence of recurrent or metastatic disease in the chest. 2. Interval resolution of diffuse tree-in-bud/hazy ground-glass in the bilateral lung compatible with resolved infection/inflammation. 3. A 1.2 cm left upper quadrant pericolonic mesenteric nodule has mildly increased in size since 2019, presumably benign given extremely slow growth rate. Continue attention on follow-up. 4. New focal 4 x 2 cm area of fat stranding in the right upper quadrant mesentery favored to represent focal fat necrosis or panniculitis. Isolated metastatic disease presenting in this fashion would be highly unusual. Attention on follow-up is recommended. 5. Otherwise no evidence of metastatic disease in the abdomen and pelvis. 6. Cholelithiasis and colonic diverticulosis. A 1.2 [...] Findings Committee. J Am Tushar Radiol. 2018 Sep;15(2):264-273.Management of Incidental Adrenal Masses: A White Paper of the ACR Incidental Findings Committee. J Am Tushar Radiol. 2017 Mar;14(8):1038- 1044. THIS IS AN ELECTRONICALLY VERIFIED FINAL REPORT 29:36 AM - Electronically signed by Shawn Delgado M.D. ML: JENSEN Report ID: [id number] Reading Location: [place] [address] Assessment and Plan: Gaby Morgan is a 72-year-old lady with limited stage small cell lung cancer for which she received concurrent chemoradiation followed by prophylactic cranial irradiation. We reviewed the most recent CT imaging with . Gaby Morgan and her revealing no clearcut evidence of disease progression but with evidence of inflammation in right upper quadrant which is not concerning for disease recurrence. We will obtain CT abdomen in 2 months to monitor for resolution of the inflammation. If she has stable scan, we will repeat CT CAP 6 months after that and see her back for visit in approximately March 2023. We discussed stopping routine brain MRI at this time as she is 5 years outfrom treatment. Consideration can be made to move to CT CAP every year if next CT CAP is stable. She will call us in the interim for any questions, concerns, or worsening symptoms. She is agreeable with this plan of care. Kylie Falcon MD Hematology & Oncology Fellow Cosigned by Zeeshan Rain MD at 07/29/2022 1:49 PM DIRECTOR SUMMER SESSIONS CTOR [facility]MER S[facility]IONS CTOR [facility]MER S[facility]IONS Associated attestation - Zeeshan Rain MD - 07/29/2022 1:49 PM DIRECTOR SUMMER SESSIONS I have seen and examined Ms.Marilyn Dionicio Morgan on 07/20/22. I agree with the findings and plan of care as documented in the resident/fellow's note. Zeeshan Rain MD account adjuster Division of Medical Oncology [facility] Please note: Moisture Meter Reader was completed by using [employer] Direct speaking software, variances may therefore occur. documented in this encounter Plan of Treatment Not on file documented as of this encounter Results * (ABNORMAL) Comprehensive metabolic panel (03/08/2023 10:05 AM CDT) Sodium 141 135 - 145 mmol/L [facility] Comment:Testing performed by : [facility], [address] [facility] [phone] Potassium, pl 3.4 3.3 - 4.9 mmol/L [facility] Comment:Testing performed by : [facility], [address] [place] [phone] Chloride 99 97 - 110 mmol/L [facility] Comment:Testing performed by : [facility], [address] [place] [phone] CO2 33(H) 22 - 32 mmol/L [facility] Comment:Testing performed by : [facility], [address] [place] [phone] Anion gap 9 2 - 15 mmol/L [facility] Comment:Testing performed by : [facility], [address] [place] [phone] BUN 12 6 - 25 mg/dL [facility] Comment:Testing performed by : [facility], [address] [place] [phone] Creatinine 0.73 0.60 - 1.10 mg/dL [facility] Comment:Testing performed by : [facility], [address] [place] [phone] Glucose 118 70 - 199 mg/dL [facility] Comment: Interpretive Data Fasting glucose >/= 126 [...] was last revised 2022. Testing performed by: [facility], [address] [place] [phone] Calcium 9.4 8.5 - 10.3 mg/dL [facility] Comment:Testing performed by : [facility], [address] [place] [phone] Bilirubin, total 0.7 0.1 - 1.2 mg/dL [facility] Comment:Testing performed by : [facility], [address] [place] [phone] Protein, pl 7.2 6.5 - 8.5 g/dL [facility] Comment:Testing performed by : [facility], [address] [place] [phone] Albumin 4.1 3.5 - 5.0 g/dL [facility] Comment:Testing performed by : [address] [phone] Alk phos 100 40 - 130 Units/L [facility] Comment:Testing performed by : [facility], [address] [place] [phone] ALT 21 7 - 45 Units/L [facility] Comment:Testing performed by : [facility], [address] [place] [phone] AST 20 10 - 45 Units/L [facility] Comment:Testing performed by : [facility], [address] [place] [phone] Blood 03/08/2023 10:0 5 AM CDT 03/08/2023 10:12 AM CDT us Zeeshan Rain MD LAB BLOOD ORDERABLES F inal Result [facility] Department [place] [address] * CBC with auto differential (03/08/2023 10:05 AM CDT) WBC 6.3 3.8 - 9.8 K/cumm [facility] Comment:Testing performed by : [facility], [address] [place] [phone] Hgb 14.4 12.1 - 15.1 g/dL [facility] Comment:Testing performed by : [facility], [address] [place] [phone] Hct 42.8 36.1 - 44.3 % [facility] Comment:Testing performed by : [facility], [address] [place] [phone] Plt 224 140 - 440 K/cumm [facility] Comment:Testing performed by : [address] [phone] MPV 7.9 6.8 - 10.4 fL [facility] Comment:Testing performed by : [address] [phone] RBC 4.60 3.90 - 5.00 M/cumm [facility] Comment:Testing performed by : [facility], [address] [place] [phone] MCV 93.0 80.0 - 97.6 fL [facility] Comment:Testing performed by : [facility], [address] [place] [phone] MCH 31.4 26.7 - 33.7 pg [facility] Comment:Testing performed by : [facility], [address] [place] [phone] MCHC 33.7 32.7 - 35.5 g/dL [facility] Comment:Testing performed by : [facility], [address] [place] [phone] RDW CV 13.8 11.8 - 14.6 % [facility] Comment:Testing performed by : [facility], [address] [place] [phone] NRBC abs 0.00 0.00 - 0.01 K/cumm [facility] Comment:Testing performed by : [facility], [address] [place] [phone] Blood 03/08/2023 10:0 5 AM CDT 03/08/2023 10:12 AM CDT us Zeeshan Rain MD LAB BLOOD ORDERABLES F inal Result [facility] [place] [address] * CT Chest Abdomen Pelvis W Contrast [...] of the lung; date of diagnosis 05/04/2017 ([facility], [id number]). Tumor specimen demonstrates CD56, synaptophysin, cytokeratin, and [...] AM T: ??03/08/2023 11:55 AM Report ID: [id number] Reading Location: ??[id number] Procedure Note Hao Mena MD PhD - 03/08/2023 EXAM DESCRIPTION: CT CHEST ABDOMEN PELVIS W CONTRAST REASON FOR STUDY: eval for mets Dx with lung cancer in 2017. No sx hx. 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 Tumor specimen [id number], synaptophysin, cytokeratin, and TTF positivity. TREATMENT: 1. [...] Hao Mena M.D. WW: OANH Report ID: [id number] Reading Location: [id number] us Zeeshan Rain MD IMG CT PROCEDURES Sada l Result * CT abdomen with contrast (09/14/2022 11:05 AM DIRECTOR [employer]MER SESSIONS) Anatomical Region Laterality Modality Body N/A Computed Tomogra phy 09/15/2022 11:0 5 AM DIRECTOR SUMMER SESSIONS Narrative 09/15/2022 11:16 AM DIRECTOR SUMMER SESSIONS EXAM DESCRIPTION: ?? CT ABDOMEN W CONTRAST [...] Findings Committee. J Am Tushar Radiol. 2017 Mar;14(8):4543-8242. FINDINGS: LOWER CHEST: ?? Bibasilar scarring appears [...] Electronically signed by ??Jose Lockett M.D. BC: BC D: ??09/15/2022 11:16 AM T: ??09/15/2022 11:16 AM Report ID: [id number] Reading Location: ??[id number] Procedure Note Jose Lockett MD - 09/15/2022 [...] Findings Committee. J Am Tushar Radiol. 2017 Mar;14(8):0666-4193. FINDINGS: LOWER CHEST: Bibasilar scarring appears similar [...] Jose Lockett M.D. BC: BLANCA Report ID: [id number] Reading Location: [id number] Result [facility] Zeeshan Rain MD IMG CT PROCEDURES Sada l Result documented in this encounter Visit Diagnoses Diagnosis Malignant neoplasm of upper lobe, right bronchus or lung (HCC)- Primary Malignant neoplasm of upper lobe, right bronchus or lung (HCC) Malignant neoplasm of upper lobe, right bronchus or lung (HCC) documented in this encounter Discontinued Medications Medication Sig Discontinue Reason Start Date End Da te amoxicillin-clavulanate (AUGMENTIN) 875-125 mg per tablet TK 1 T PO Q 12 H FOR 10 DAYS Therapy completed 01/11/2018 07/20/2022 azithromycin (ZITHROMAX) 250 mg tablet Therapy completed 09/16/2018 07/20/2022 ptxarvpwcyj-ruacyugrb-us lanter (Trelegy Ellipta) 100-62.5-25 mcg inhaler Trelegy Ellipta Duplicate order 07/20/20 22 documented as of this encounter Orders Appointment Requests Count Last Ordered Date Fi rst Ordered Date ONCBCN CLINIC APPOINTMENT REQUEST 2 023 07/20/2022 ONCBCN LAB APPOINTMENT 1 03/08/2023 documented in this encounter Care Teams Material Specialist Relationship Specialty Start Date End Date Paula Robles NP PCP - General 05/31/17 Zeeshan Rain MD Medical Oncologist/Polymerization Oven Tender Medical Oncology 02/11/18 08/23/22 Addy Mathur MD PhD [address] [place] [address] Radiation Oncologist Radiation Oncology 03/10/18 documented as of this encounter
--- OUTSIDE RECORDS SUMMARY | 2024-08-06 17:34 | XMS_ITS | Encounter Summary ---
Author Organization [facility] Healthcare Address [address] [place] [address] Care Team Providers Care Student Activities Director Name Role Phone [place] [facility] Primary Care Provider + Zeeshan Rain MD Unavailable [phone] Addy reyna MD PhD Unavailable [phone] Reason for Referral * Diagnostic Imaging (Routine) - Closed Specialty Diagnoses / Procedures Referred By Alan bangura Referred To Contact Radiology Diagnoses Malignant neoplasm of upper lobe, right bronchus or lung (HCC) Procedures CT Chest Abdomen Pelvis W Contrast Zeeshan Rain MD Phone: tel: fax: [address] [phone] Referral ID Status Reason Start Date Expiration Date Visits Re quested Visits Authorized [id number] Closed 08/12/2020 09/11/2021 1 1 Reason for Visit * Diagnostic Imaging (Routine) - Closed Specialty Diagnoses / Procedures Referred By Alan bangura Referred To Contact Radiology Diagnoses Malignant neoplasm of upper lobe, right bronchus or lung (HCC) Procedures CT Chest Abdomen Pelvis W Contrast Zeeshan Rain MD Phone: tel: fax: [facility] [address] [facility] [place] [address] Referral ID Status Reason Start Date Expiration Date Visits Re quested Visits Authorized [id number] Closed 08/12/2020 09/11/2021 1 1 Encounter Details Date Type Department Care Team (Latest Contact Info) Description 01/31/2021 9:47 AM CDT - 01/31/2021 10:29 AM CDT Hospital Encounter [facility] [address] [place] [address] Zeeshan Rain MD [address] [place] [address] Malignant neoplasm of upper lobe, right bronchus or lung (CMS/HCC) Discharge Disposition: Discharge to home or self care Social History Tobacco Use Types Packs/Day Years Used Date Smoking Tobacco: Former Cigarettes Smokeless Tobacco: Never Comments No Sex and Gender Information Value Date Recorded Sex Assigned at Not on file Legal Sex Female 1:02 AM RADIO 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 Try this medication second 05/24/2017 3 documented as of this encounter Discharge Disposition Disposition Code Departure Means Destination Discharge to home or self care documented in this encounter Plan of Treatment Not on file documented as of this encounter Procedures Procedure Name Priority Date/Time Associated Diagnosis Comments CT CHEST ABDOMEN PELVIS W CONTRAST Schedule Routine, Read Routine (OP Routine) 01/31/2021 10:34 AM CDT Malignant neoplasm of upper lobe, right bronchus or lung (CMS/HCC) POCT CREATININE - DEVICE Routine 01/31/2021 10:20 AM CDT documented in this encounter Results * CT Chest Abdomen Pelvis W Contrast (01/31/2021 10:34 AM CDT) Anatomical Region Laterality Modality Body N/A Computed Tomogra phy 01/31/2021 10:5 5 AM CDT Impressions 01/31/2021 11:41 AM CDT 1. Stable posttreatment changes in the right lung. 2. No CT evidence of metastatic disease in the chest, abdomen, or pelvis. Dictated by: Adolfo Muller M.D. The radiology attending physician has personally reviewed this study, and had reviewed and/or edited this written report and agrees with it. Electronically signed by: Nii Prado M.D. Narrative 01/31/2021 11:41 AM CDT EXAMINATION: ??Computed tomography of the chest, abdomen and pelvis with intravenous contrast HISTORY: 70-year-old female with history of small cell lung cancer status post chemoradiation TECHNIQUE: ??Transaxial computed tomographic images of the chest, abdomen and pelvis were obtained with intravenous contrast according to the standard protocol after the uneventful administration of 125 mL Opti-Ray 350 intravenous contrast. COMPARISON: 08/07/2020 FINDINGS: ?? Chest: The thyroid is normal. There is no thoracic lymphadenopathy. There are mild atherosclerotic calcifications of the aorta. Heart size is normal with no pericardial effusion. There is right upper and middle lobe volume loss with bronchiectasis and architectural distortion which overall appears stable compared to prior examination and likely represents post treatment changes. There is mild centrilobular emphysema. There is unchanged bilateral lower lobe scarring. No pleural effusion or pneumothorax. No new suspicious pulmonary nodules. Abdomen/Pelvis: There is mild diffuse hepatic steatosis similar to prior exam. No suspicious focal hepatic lesion. The spleen is normal. There is cholelithiasis without evidence of acute cholecystitis. Pancreas is normal. The bilateral adrenal glands are normal. The kidneys enhance symmetrically there is no hydronephrosis. There is an unchanged right lower pole lesion which has previously been characterized as benign on ultrasound. Normal course and caliber the small bowel and colon. No evidence of bowel obstruction. No suspicious abdominal or pelvic lymphadenopathy. The urinary bladder is normal. The uterus is present. There are mild atherosclerotic calcifications of the abdominal aorta and iliac vessels. No suspicious osseous lesions. Procedure Note Nii Prado MD - 01/31/2021 EXAMINATION: Computed tomography of the chest, abdomen and pelvis with intravenous contrast HISTORY: 70-year-old female with history of small cell lung cancer status post chemoradiation TECHNIQUE: Transaxial computed tomographic images of the chest, abdomen and pelvis were obtained with intravenous contrast according to the standard protocol after the uneventful administration of 125 mL Opti-Ray 350 intravenous contrast. COMPARISON: 08/07/2020 FINDINGS: Chest: The thyroid is normal. There is no thoracic lymphadenopathy. There are mild atherosclerotic calcifications of the aorta. Heart size is normal with no pericardial effusion. There is right upper and middle lobe volume loss with bronchiectasis and architectural distortion which overall appears stable compared to prior examination and likely represents post treatment changes. There is mild centrilobular emphysema. There is unchanged bilateral lower lobe scarring. No pleural effusion or pneumothorax. No new suspicious pulmonary nodules. Abdomen/Pelvis: There is mild diffuse hepatic steatosis similar to prior exam. No suspicious focal hepatic lesion. The spleen is normal. There is cholelithiasis without evidence of acute cholecystitis. Pancreas is normal. The bilateral adrenal glands are normal. The kidneys enhance symmetrically there is no hydronephrosis. There is an unchanged right lower pole lesion which has previously been characterized as benign on ultrasound. Normal course and caliber the small bowel and colon. No evidence of bowel obstruction. No suspicious abdominal or pelvic lymphadenopathy. The urinary bladder is normal. The uterus is present. There are mild atherosclerotic calcifications of the abdominal aorta and iliac vessels. No suspicious osseous lesions. IMPRESSION: 1. Stable posttreatment changes in the right lung. 2. No CT evidence of metastatic disease in the chest, abdomen, or pelvis. Dictated by: Adolfo Dong Hirschi, M.D. The radiology attending physician has personally reviewed this study, and had reviewed and/or edited this written report and agrees with it. Electronically signed by: Nii Prado M.D. Zeeshan Rain MD IMG CT PROCEDURES Sada l Result * POCT creatinine (01/31/2021 10:20 AM CDT) Creatinine POC 0.8 0.6 - 1.1 mg/dL [facility] Blood specimen (specimen) 01/31/2021 10:20 AM CDT 01/31/2021 10:20 AM CDT Result [facility] Zeeshan Rain MD LAB POCT ORDERABLES - DEVICE Final Result [facility] Department [place] [address] documented in this encounter Visit Diagnoses Diagnosis Malignant neoplasm of upper lobe, right bronchus or lung (HCC) documented in this encounter Administered Medications Inactive Administered Medications - up to 3 most recent administrations Medication Order MAR Action Action Date Dose Rate Site ioversoL (OPTIRAY 350) syringe syringe 125 mL 125 mL, intravenous, Once in imaging, contrast, Starting on Wed01/31/21 at 1026, For 1 dose Contrast Given 01/31/2021 10:34 AM CDT 125 mL documented in this encounter Orders Medications Ordered That Adam ht Not Have Been Administered Count Last Ordered Date First Ordered Date ioversoL (OPTIRAY 350) syrin ge syringe 125 mL 1 01/31/2021 documented in this encounter Care Teams Student Activities Director Relationship Specialty Start Date End Date Paula Robles NP PCP - General 05/31/17 Zeeshan Rain MD Medical Oncologist/Diver Assistant Medical Oncology 02/11/18 08/23/22 Addy Mathur MD PhD [address] [place] [address] Radiation Oncologist Radiation Oncology 03/10/18 documented as of this encounter
--- OUTSIDE RECORDS SUMMARY | 2024-08-06 17:34 | XMS_ITS | Encounter Summary ---
Author Organization [facility] Address [address] [place] [address] Phone Care Team Providers Care Track Broom Operator Name Role Phone Travis Paula Knowles NP Primary Care Provider + Zeeshan Rain MD Unavailable [phone] Addy reyna MD PhD Unavailable [phone] Encounter Details Date Type Department Care Team (Late st Contact Info) Description 07/28/2021 10:00 AM LINEN GRADER Lab [facility] [address] [facility] Advanced Medicine 7th [place] [address] [place] [address] Zeeshan Rain MD [address] [place] [address] Malignant neoplasm of upper lobe, right bronchus or lung (HCC) Social History Tobacco Use Types Packs/Day Years Used Date Smoking Tobacco: Former Cigarettes Smokeless Tobacco: Never Comments No Sex and Gender Information Value Date Recorded Sex Assigned at Not on file Legal Sex Female 1:02 AM LINEN GRADER Gender Identity Not on file Sexual Orientation Not on file documented as of this encounter Plan of Treatment Not on file documented as of this encounter Procedures Procedure Name Priority Date/Time Associated Diagnosis Comments EGFR STAT 07/28/2021 10:09 AM LINEN GRADER Malignant neoplasm of upper lobe, right bronchus or lung (HCC) DIFFERENTIAL AUTO Routine 07/28/2021 10: 09 AM LINEN GRADER Malignant neoplasm of upper lobe, right bronchus or lung (HCC) CBC WITH AUTO DIFFERENTIAL Routine 07/28/2021 10:09 AM LINEN GRADER Malignant neoplasm of upper lobe, right bronchus or lung (HCC) COMPREHENSIVE METABOLIC PANEL STAT 07/28/2021 10:09 AM LINEN GRADER Malignant neoplasm of upper lobe, right bronchus or lung (HCC) documented in this encounter Results * eGFR (07/28/2021 10:09 AM LINEN GRADER) eGFR >90 90 - 130 mL/min/1. 73 m2 [facility] Comment: Interpretive Data Reference Interval Normal ?>/= [...] was last reviewed 2021. Testing performed by: [facility], [address] [place] [phone] Blood 07/28/2021 10:0 9 AM LINEN GRADER 07/28/2021 10:10 AM LINEN GRADER us Zeeshan Rain MD LAB BLOOD ORDERABLES F inal Result [facility] [place] [address] * Differential, auto (07/28/2021 10:09 AM LINEN GRADER) Neutrophil abs 2.8 1.8 - 6.6 K/cumm [facility] Comment:Testing performed by : [facility], [address] [place] [phone] Lymphocyte abs 2.2 1.2 - 3.3 K/cumm C[facility]ER [facility] Comment:Testing performed by : [facility], [address] [place] [phone] Monocyte abs 0.3 0.2 - 1.2 K/cumm [facility] Comment:Testing performed by : [facility], [address] [place] [phone] Eosinophil abs 0.1 0.0 - 0.5 K/cumm [facility]ER [facility] Comment:Testing performed by : [facility], [address] [place] [phone] Basophil abs 0.0 0.0 - 0.2 K/cumm [facility] Comment:Testing performed by : [address] [phone] Neutrophil pct 51.3 % [facility] Comment: Interpretive Data Percent cell count reference ranges are not reported, since discordance with absolute values may lead to misinterpretation of CBC data. Current Interpretive Data was last revised on 2017. Testing performed by: [facility], [address] [place] [phone] Lymphocyte pct 39.0 % [facility] Comment: Interpretive Data Percent cell count reference ranges are not reported, since discordance with absolute values may lead to misinterpretation of CBC data. Current Interpretive Data was last revised on 2017. Testing performed by: [facility], [address] [place] [phone] Monocyte pct 6.3 % [facility] Comment:Testing performed by : [facility], [address] [place] [phone] Eosinophil pct 2.6 % [facility] Comment:Testing performed by : [facility], [address] [place] [phone] Basophil pct 0.8 % [facility] Comment:Testing performed by : [facility], [address] [place] [phone] Blood 07/28/2021 10:0 9 AM LINEN GRADER 07/28/2021 10:10 AM LINEN GRADER us Zeeshan Rain MD LAB BLOOD ORDERABLES F inal Result [facility] Department [place] [address] * (ABNORMAL) CBC with auto differential (07/28/2021 10:09 AM LINEN GRADER) WBC 5.5 3.8 - 9.8 K/cumm [facility]IO [facility] Comment:Testing performed by : [facility], [address] [place] [phone] Hgb 15.3(H) 12.1 - 15.1 g/dL [facility] Comment:Testing performed by : [address] [phone] Hct 44.7(H) 36.1 - 44.3 % [facility] Comment:Testing performed by : [facility], [address] [place] [phone] Plt 220 140 - 440 K/cumm [facility]IO [facility] Comment:Testing performed by : [facility], [address] [place] [phone] MPV 7.9 6.8 - 10.4 fL [facility] Comment:Testing performed by : [address] [phone] RBC 4.82 3.90 - 5.00 M/cumm [facility] Comment:Testing performed by : [facility], [address] [place] [phone] MCV 92.8 80.0 - 97.6 fL [facility]IO [facility] Comment:Testing performed by : [facility], [address] [place] [phone] MCH 31.7 26.7 - 33.7 pg [facility]IO [facility] Comment:Testing performed by : [facility], [address] [place] [phone] MCHC 34.2 32.7 - 35.5 g/dL [facility] Comment:Testing performed by : [facility], [address] [place] [phone] RDW CV 13.4 11.8 - 14.6 % [facility] Comment:Testing performed by : [facility], [address] [place] [phone] NRBC abs 0.00 0.00 - 0.01 K/cumm [facility]IO [facility]A Comment:Testing performed by : [facility], [address] [place] [phone] Blood 07/28/2021 10:0 9 AM LINEN GRADER 07/28/2021 10:10 AM LINEN GRADER Zeeshan Rain MD LAB BLOOD ORDERABLES F inal Result [facility] Department [place] [address] * (ABNORMAL) Comprehensive metabolic panel (07/28/2021 10:09 AM LINEN GRADER) Sodium 139 135 - 145 mmol/L [facility] Comment:Testing performed by : [facility], [address] [place] [phone] Potassium, pl 3.4 3.3 - 4.9 mmol/L [facility]A Comment:Testing performed by : [address] [phone] Chloride 96(L) 97 - 110 mmol/L [facility]A Comment:Testing performed by : [facility], [address] [place] [phone] CO2 35(H) 22 - 32 mmol/L [facility]ER [facility]J Comment:Testing performed by : [facility], [address] [place] [phone] Anion gap 8 2 - 15 mmol/L [facility] Comment:Testing performed by : [facility], [address] [place] [phone] BUN 12 8 - 25 mg/dL [facility] Comment:Testing performed by : [facility], [address] [place] [phone] Creatinine 0.68 0.60 - 1.10 mg/dL [facility] Comment:Testing performed by : [facility], [address] [place] [phone] Glucose 115 70 - 199 mg/dL [facility]J Comment: [...] was last revised 2017. Testing performed by: [facility], [address] [place] [phone] Calcium 10.0 8.5 - 10.3 mg/dL [facility] Comment:Testing performed by : [facility], [address] [place] [phone] Bilirubin, total 0.6 0.1 - 1.2 mg/dL [facility] Comment:Testing performed by : [facility], [address] [place] [phone] Protein, pl 7.6 6.5 - 8.5 g/dL [facility] Comment:Testing performed by : [facility], [address] [place] [phone] Albumin 4.3 3.5 - 5.0 g/dL [facility]ER [facility]J Comment:Testing performed by : [facility], [address] [facility] [phone] Alk phos 92 40 - 130 Units/L [facility] Comment:Testing performed by : [facility], [address] [place] [phone] ALT 27 7 - 45 Units/L [facility]IO [facility]A Comment:Testing performed by : [facility], [address] [place] [phone] AST 22 10 - 45 Units/L [facility] Comment:Testing performed by : [facility], [address] [place] [phone] Blood 07/28/2021 10:0 9 AM LINEN GRADER 07/28/2021 10:10 AM LINEN GRADER us Zeeshan Rain MD LAB BLOOD ORDERABLES F inal Result [facility] [place] [address] documented in this encounter Visit Diagnoses Diagnosis Malignant neoplasm of upper lobe, right bronchus or lung (HCC) documented in this encounter Orders Appointment Requests Count Last Ordered Date Fi rst Ordered Date ONCBCN LAB APPOINTMENT 1 07/28/2021 documented in this encounter Care Teams Track Broom Operator Relationship Specialty Start Date End Date Paula Robles NP PCP - General 05/31/17 Zeeshan Rain MD Medical Oncologist/Nuclear Medicine Technologist Medical Oncology 02/11/18 08/23/22 Addy Mathur MD PhD [address] [place] [address] Radiation Oncologist Radiation Oncology 03/10/18 documented as of this encounter
--- OUTSIDE RECORDS SUMMARY | 2024-08-06 17:34 | XMS_ITS | Encounter Summary ---
Author Organization [facility] Healthcare Address [address] [place] [address] Care Team Providers Care Pot Puller Name Role Phone rTavisPaula Eleni AERODYNAMICS PROFESSOR Primary Care Provider + Zeeshan Rain MD Unavailable [phone] Addy reyna MD PhD Unavailable [phone] Reason for Referral * Diagnostic Imaging (Routine) - Closed Specialty Diagnoses / Procedures Referred By Alan bangura Referred To Contact Radiology Diagnoses Malignant neoplasm of upper lobe, right bronchus or lung (HCC) Procedures PET/CT FDG Skull to Thigh Zeeshan Rain MD Phone: tel: fax: [address] [phone] Referral ID Status Reason Start Date Expiration Date Visits Re quested Visits Authorized [id number] Closed 07/28/2021 08/27/2022 1 1 OM BOOKBINDER Reason for Visit * Diagnostic Imaging (Routine) - Closed Specialty Diagnoses / Procedures Referred By Alan bangura Referred To Contact Radiology Diagnoses Malignant neoplasm of upper lobe, right bronchus or lung (HCC) Procedures PET/CT FDG Skull to Thigh Zeeshan Rain MD Phone: tel: fax: [facility] [address] [facility] [place] [address] Referral ID Status Reason Start Date Expiration Date Visits Re quested Visits Authorized [id number] Closed 07/28/2021 08/27/2022 1 1 Encounter Details Date Type Department Care Team (Latest Contact Info) Description 08/11/2021 8:44 AM CUSTOM BOOKBINDER - 08/11/2021 11:59 PM CUSTOM BOOKBINDER Hospital Encounter [facility] [address] [place] [address] Zeeshan Rain MD [address] [place] [address] Malignant neoplasm of upper lobe, right bronchus or lung (HCC) Discharge Disposition: Discharge to home or self care Social History Tobacco Use Types Packs/Day Years Used Date Smoking Tobacco: Former Cigarettes Smokeless Tobacco: Never Comments No Sex and Gender Information Value Date Recorded Sex Assigned at Not on file Legal Sex Female 1:02 AM CUSTOM BOOKBINDER Gender Identity Not on file Sexual Orientation Not on file documented as of this encounter Last Filed Vital Signs Vital Sign Reading Time Taken Comments Blood Pressure - - Pulse - - Temperature - - Respiratory Rate - - Oxygen Saturation - - Inhaled Oxygen Concentration - - Weight 115.5 kg (254 lb 10.1 oz) 08/11/2021 9:21 AM CUSTOM BOOKBINDER Height - - Body Mass Index 45.12 07/28/2021 10:29 AM CUSTOM BOOKBINDER documented in this encounter Medications at Time [...] Procedure Name Priority Date/Time Associated Diagnosis Comments PET/CT FDG SKULL TO THIGH Schedule Routine, Read Routine (OP Routine) 08/11/2021 10:54 AM CUSTOM BOOKBINDER Malignant neoplasm of upper lobe, right bronchus or lung (HCC) documented in this encounter Results * PET/CT FDG Skull to Thigh (08/11/2021 10:54 AM CUSTOM BOOKBINDER) Anatomical Region Laterality Modality N/A Positron Emissio n Tomography (PET) 08/11/2021 12:1 6 PM CUSTOM BOOKBINDER Impressions 08/11/2021 12:36 PM CUSTOM BOOKBINDER No FDG PET evidence of recurrent/residual malignancy. ??Particularly soft tissue thickening adjacent to the right mainstem bronchus has no increased FDG uptake. No FDG PET evidence of distant metastatic disease. Dictated by: Tyson Tristan M.D. The radiology attending physician has personally reviewed this study, and had reviewed and/or edited this written report and agrees with it. Electronically signed by: Cecelia Xie M.D. Narrative 08/11/2021 12:36 PM CUSTOM BOOKBINDER EXAMINATION: TUMOR FDG-PET/CT IMAGING DATE OF STUDY: ??08/11/2021 SCANNER: mCT RADIOPHARMACEUTICAL: 20.5 mCi F-18 Fluorodeoxyglucose (FDG) i.v. Injection site: Left hand. 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 ??Recent CT chest abdomen pelvis dated 07/25/2021 reported increased mediastinal soft tissue thickening along right mainstem bronchus. ??The study is requested for detection of suspected recurrence. Subsequent treatment strategy. TECHNIQUE: ?? The patient's fasting blood glucose level, measured by glucometer before injection of FDG, was 102 mg/dL. ??MD-Gastroview was not given orally. ??After intravenous administration of FDG, noncontrast CT images were obtained for attenuation correction and for fusion with emission PET images to allow for anatomical localization of PET findings. ??Emission PET images were then obtained. ??The study was interpreted on the [email or web address] workstation. ??The mean liver SUV (reported for software quality assurance specialist purposes) is 2.6. The total scanned area was skull base to the proximal thighs. ??Images of the body were obtained starting 81 minutes after injection of tracer. COMPARISON: FDG PET/CT 06/23/2019. FINDINGS: Evidence of prior radiotherapy with volume reduction and fibrotic change in the right lung. This is no suspicious focal FDG uptake in this region. ??In particular soft tissue thickening adjacent to the right mainstem bronchus has no increased FDG uptake and has metabolic activity lower than blood pool. Additional CT findings: Mild to moderate atherosclerotic aortic calcifications. ??Small hiatal hernia. ??Mild diffuse hepatic steatosis. ??Colonic diverticulosis. ??Level degenerative spinal changes. ??Fat-containing periumbilical ventral hernia. ??L4-L5 vertebral perfusion. Procedure Note Cecelia Boo MD - 08/11/2021 EXAMINATION: TUMOR FDG-PET/CT IMAGING DATE OF STUDY: 08/11/2021 SCANNER: mCT RADIOPHARMACEUTICAL: 20.5 mCi F-18 Fluorodeoxyglucose (FDG) i.v. Injection site: Left hand. 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 Recent CT chest abdomen pelvis dated 07/25/2021 reported increased mediastinal soft tissue thickening along right mainstem bronchus. The study is requested for detection of suspected recurrence. Subsequent treatment strategy. TECHNIQUE: The patient's fasting blood glucose level, measured by glucometer before injection of FDG, was 102 mg/dL. MD-Gastroview was not given orally. After intravenous administration of FDG, noncontrast CT images were obtained for attenuation correction and for fusion with emission PET images to allow for anatomical localization of PET findings. Emission PET images were then obtained. The study was interpreted on the [email or web address] workstation. The mean liver SUV (reported for software quality assurance specialist purposes) is 2.6. The total scanned area was skull base to the proximal thighs. Images of the body were obtained starting 81 minutes after injection of tracer. COMPARISON: FDG PET/CT 06/23/2019. FINDINGS: Evidence of prior radiotherapy with volume reduction and fibrotic change in the right lung. This is no suspicious focal FDG uptake in this region. In particular soft tissue thickening adjacent to the right mainstem bronchus has no increased FDG uptake and has metabolic activity lower than blood pool. Additional CT findings: Mild to moderate atherosclerotic aortic calcifications. Small hiatal hernia. Mild diffuse hepatic steatosis. Colonic diverticulosis. Level degenerative spinal changes. Fat-containing periumbilical ventral hernia. L4-L5 vertebral perfusion. IMPRESSION: No FDG PET evidence of recurrent/residual malignancy. Particularly soft tissue thickening adjacent to the right mainstem bronchus has no increased FDG uptake. No FDG PET evidence of distant metastatic disease. Dictated by: Tyson Tristan M.D. The radiology attending physician has personally reviewed this study, and had reviewed and/or edited this written report and agrees with it. Electronically signed by: Cecelia Xie M.D. Zeeshan Rain MD IMG PET PROCEDURES Fin al Result documented in this encounter Visit Diagnoses Diagnosis Malignant neoplasm of upper lobe, right bronchus or lung (HCC) documented in this encounter Administered Medications Inactive Administered Medications - up to 3 most recent administrations Medication Order MAR Action Action Date Dose Rate Site fludeoxyglucose F-18 (FDG) injection 20 millicurie 20 millicurie, intravenous, Once in imaging, radiopharmaceutical, Starting on Wed08/11/21 at 0921, For 1 dose Given 08/11/2021 9:17 AM CUSTOM BOOKBINDER 20.54 millicuries documented in this encounter Orders Medications Ordered That Adam ht Not Have Been Administered Count Last Ordered Date First Ordered Date fludeoxyglucose F-18 (FDG) i njection 20 millicurie 1 08/11/2021 documented in this encounter Care Teams Pot Puller Relationship Specialty Start Date End Date Paula Robles NP PCP - General 05/31/17 Zeeshan Rain MD Medical Oncologist/Supervisor [employer] [facility] 02/11/18 08/23/22 Addy Mathur MD PhD [address] [place] [address] Radiation Oncologist Radiation Oncology 03/10/18 documented as of this encounter
--- OUTSIDE RECORDS SUMMARY | 2024-08-06 17:34 | XMS_ITS | Encounter Summary ---
Author Organization [facility] Address [address] [place] [address] Phone Care Team Providers Care Head Of Stock Name Role Phone Travis Paula Knowles NP Primary Care Provider + Zeeshan Rain MD Unavailable [phone] [facility] Un[facility] + [phone] Reason for Referral * Diagnostic Imaging (Routine) - Closed Specialty Diagnoses / Procedures Referred By Alan bangura Referred To Contact Radiology Diagnoses Malignant neoplasm of upper lobe, right bronchus or lung (HCC) Procedures PET/CT FDG Skull to Thigh Zeeshan Rain MD Phone: tel: fax: [address] [phone] Referral ID Status Reason Start Date Expiration Date Visits Re quested Visits Authorized [id number] Closed 07/28/2021 08/27/2022 1 1 ESS MANAGEMENT DIRECTOR * Diagnostic Imaging (Routine) - Closed Specialty Diagnoses / Procedures Referred By Alan bangura Referred To Contact Radiology Diagnoses Malignant neoplasm of upper lobe, right bronchus or lung (HCC) Procedures CT Chest Abdomen Pelvis W Contrast Zeeshan Rain MD Phone: tel: fax: [facility] [address] [facility] [place] [address] Referral ID Status Reason Start Date Expiration Date Visits Re quested Visits Authorized [id number] Closed 07/28/2021 08/27/2022 1 1 ESS MANAGEMENT DIRECTOR Encounter Details Date Type Department Care Team (Late st Contact Info) Description 07/28/2021 10:40 AM FITNESS MANAGEMENT DIRECTOR Office Visit [facility] Oncology [address] [facility] [address] [facility] 7th [place] [address] [place] [id number] Zeeshan Rain MD [address] [place] [address] Malignant neoplasm of upper lobe, right bronchus or lung (HCC) (Primary Dx); Need for prophylactic vaccination and inoculation against influenza Social History Tobacco Use Types Packs/Day Years Used Date Smoking Tobacco: Former Cigarettes Smokeless Tobacco: Never Comments No Sex and Gender Information Value Date Recorded Sex Assigned at Not on file Legal Sex Female 1:02 AM FITNESS MANAGEMENT DIRECTOR Gender Identity Not on file Sexual Orientation Not on file documented as of this encounter Last Filed Vital Signs Vital Sign Reading Time Taken Comments Blood Pressure 152/82 07/28/2021 10:29 AM FITNESS MANAGEMENT DIRECTOR Pulse 103 07/28/2021 10:29 AM FITNESS MANAGEMENT DIRECTOR Temperature 36.3 ??C (97.4 ??F) 07/28/2021 1 0:29 AM FITNESS MANAGEMENT DIRECTOR Respiratory Rate 18 07/28/2021 10:2 9 AM FITNESS MANAGEMENT DIRECTOR Oxygen Saturation 93% 07/28/2021 10: 29 AM FITNESS MANAGEMENT DIRECTOR Inhaled Oxygen Concentration - - Weight 115.5 kg (254 lb 9.6 oz) 021 10:29 AM FITNESS MANAGEMENT DIRECTOR Height 160 cm (5' 2.99 ) 07/28/2021 10: 29 AM FITNESS MANAGEMENT DIRECTOR Body Mass Index 45.11 07/28/2021 10:29 AM FITNESS MANAGEMENT DIRECTOR documented in this encounter Progress Notes * Zeeshan Rain MD - 07/28/2021 10:40 AM CST [facility] DEPARTMENT OF MEDICINE - MEDICAL ONCOLOGY [address] [place] [phone] PHONE: FAX: Medical Oncology Follow-up Note Oncology History Overview Note DIAGNOSIS: 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 Tumor specimen demonstrates CD56, synaptophysin, cytokeratin, and TTF positivity. TREATMENT: 1. Concurrent chemoradiation with carboplatin and etoposide with radiation from 06/21/2017 to 08/03/2017, and chemotherapy from 05/28/2017 to 08/05/2017. 2. Prophylactic whole-brain radiation in 10 fractions from 09/13/2017 to 09/24/2017. Interval History: Gaby Morgan presents for a 6 month follow-up visit today, accompanied by her Fernandez. Shecontinues to do well without new neurological or systemic symptoms. She reports dyspnea on exertion, from her COPD, but this does not seem to have worsened as such. She is independent with her ADLs. Her brain MRI was unremarkable. Her CT scan suggested slight thickening on the right mainstem bronchus possibly from prior radiation , although disease progression could not be entirely ruled out. PAST MEDICAL HISTORY: 1. COPD/asthma. 2. History of community-acquired pneumonia. 3. Radiographic findings of pulmonary hypertension on CT scan. SOCIAL HISTORY: She is currently retired. 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 She lives in [place], [place]. She quit smoking in 2008 but [...] complete list of medications. Allergies Allergen Reactions ??? Rosuvastatin Unknown and Other (See comments) Review of Systems: All other systems negative Vitals: BP: 152/82 Temp: 36.3 ??C (97.4 ??F) Temp src: Temporal Pulse: 103 Resp: 18 SpO2: 93 % Height: 160 cm (5' 2.99 ) Weight: 115.5 kg (254 lb 9.6 oz) Physical Exam: General: Alert, awake and oriented. [...] Appropriate affect Skin: no rashes or bruises ECO Lab Review: CBC: Lab Results Component Value Date/Time WBC 5.5 07/28/2021 10:09 AM HGB 15.3 (H) 07/28/2021 10:09 AM HCT 44.7 (H) 07/28/2021 10:09 AM MCV 92.8 07/28/2021 10:09 AM NEUTROABS 2.8 07/28/2021 10:09 AM CMP: Lab Results Component Value Date/Time SODIUM 139 07/28/2021 10:09 AM POTASSIUM 3.4 07/28/2021 10:09 AM CO2 35 (H) 07/28/2021 10:09 AM BUNSER 12 07/28/2021 10:09 AM GLUCOSE 115 07/28/2021 10:09 AM CREATININE 0.68 07/28/2021 10:09 AM CALCIUM 10.0 07/28/2021 10:09 AM CHLORIDE 96 (L) 07/28/2021 10:09 AM ALBUMIN 4.3 07/28/2021 10:09 AM AST 22 07/28/2021 10:09 AM ALT 27 07/28/2021 10:09 AM ALKPHOS 92 07/28/2021 10:09 AM BILITOT 0.6 07/28/2021 10:09 AM PROT 7.6 07/28/2021 10:09 AM ANIONGAP 8 07/28/2021 10:09 AM Radiology: CT CAP 07/25/21 IMPRESSION: Interval increase in mediastinal soft tissue thickening along the right mainstem bronchus. It is unclear if this represents recurrent disease versus postradiation changes. Recommend attention on follow-up. Assessment and Plan: Gaby Morgan is a 70-year-old lady with limited stage small cell lung cancer for which she received concurrent chemoradiation followed by prophylactic cranial irradiation. Overall, she continues to do well without any new symptoms. Her recent brain MRI was unremarkable, although her CT scan demonstrated slight interval increase in the size of mediastinal soft tissue thickening along the rightmainstem bronchus. At this time, it is unclear if this represents disease recurrence, or alternatively a post radiation change. We will plan on obtaining a PET-CT scan to characterize this better. Inthe event her PET scan is negative, we will plan on resuming 6 monthly follow-up with CT scans. Sheis comfortable with this plan and knows to contact us in the interim with any questions or concerns. Zeeshan Rain MD Head Of Digitaldata operations leader Division of Medical Oncology [facility] Please note: Elephant Keeper was completed by using [employer] Direct speaking software, variances may therefore occur. ESS MANAGEMENT DIRECTOR documented in this encounter Plan of Treatment Not on file documented as of this encounter Results * (ABNORMAL) Comprehensive metabolic panel (01/26/2022 10:11 AM CDT) Sodium 140 135 - 145 mmol/L CERNER BJ Comment:Testing performed by : [facility], [address] [place] [phone] Potassium, pl 3.1(L) 3.3 - 4.9 mmol/L CERNER BJ Comment:Testing performed by : [facility], [address] [place] [phone] Chloride 95(L) 97 - 110 mmol/L CERNER BJ Comment:Testing performed by : [facility], [address] [place] [phone] CO2 37(H) 22 - 32 mmol/L CERNER BJH Comment:Testing performed by : [facility], [address] [place] [phone] Anion gap 8 2 - 15 mmol/L CERNER BJH Comment:Testing performed by : [facility], [address] [place] [phone] BUN 13 8 - 25 mg/dL CERNER BJ Comment:Testing performed by : [facility], [address] [place] [phone] Creatinine 0.72 0.60 - 1.10 mg/dL CERNER BJ Comment:Testing performed by : [facility], [address] [place] [phone] Glucose 100 70 - 199 mg/dL CERNER BJ Comment: [...] was last revised 2017. Testing performed by: [facility], [address] [place] [phone] Calcium 9.5 8.5 - 10.3 mg/dL CERNER BJ Comment:Testing performed by : [address] [phone] Bilirubin, total 0.7 0.1 - 1.2 mg/dL CERNER BJ Comment:Testing performed by : [address] [phone] Protein, pl 7.3 6.5 - 8.5 g/dL CERNER BJ Comment:Testing performed by : [facility], [address] [place] [phone] Albumin 4.0 3.5 - 5.0 g/dL CERNER BJ Comment:Testing performed by : [address] [phone] Alk phos 96 40 - 130 Units/L CERNER BJ Comment:Testing performed by : [address] [phone] ALT 19 7 - 45 Units/L CERNER BJ Comment:Testing performed by : [facility], [address] [place] [phone] AST 19 10 - 45 Units/L ARSENIO BELLA Comment:Testing performed by : [facility], [address] [place] [phone] Blood 01/26/2022 10:1 1 AM CDT 01/26/2022 10:12 AM CDT Zeeshan Rain MD LAB BLOOD ORDERABLES F inal Result ARSENIO BELLA [facility] Department [place] [address] * CBC with auto differential (01/26/2022 10:11 AM CDT) WBC 6.5 3.8 - 9.8 K/cumm ARSENIO BELLA Comment:Testing performed by : [address] [phone] Hgb 13.4 12.1 - 15.1 g/dL ARSENIO BELLA Comment:Testing performed by : [facility], [address] [place] [phone] Hct 39.1 36.1 - 44.3 % ARSENIO BELLA Comment:Testing performed by : [facility], [address] [place] [phone] Plt 226 140 - 440 K/cumm ARSENIO BELLA Comment:Testing performed by : [address] [phone] MPV 7.6 6.8 - 10.4 fL ARSENIO BELLA Comment:Testing performed by : [address] [phone] RBC 4.25 3.90 - 5.00 M/cumm ARSENIO BELLA Comment:Testing performed by : [address] [phone] MCV 91.9 80.0 - 97.6 fL ARSENOI BELLA Comment:Testing performed by : [address] [phone] MCH 31.5 26.7 - 33.7 pg ARSENIO BELLA Comment:Testing performed by : [facility], [address] [facility] [phone] MCHC 34.3 32.7 - 35.5 g/dL ARSENIO BELLA Comment:Testing performed by : [facility], [address] [place] [phone] RDW CV 13.7 11.8 - 14.6 % ARSENIO BELLA Comment:Testing performed by : [facility], [address] [place] [phone] NRBC abs 0.00 0.00 - 0.01 K/cumm ARSENIO [facility] Comment:Testing performed by : [facility], [address] [place] [phone] Blood 01/26/2022 10:1 1 AM CDT 01/26/2022 10:12 AM CDT us Zeeshan Rain MD LAB BLOOD ORDERABLES F inal Result ARSENIO [facility] Department [place] [address] * CT Chest Abdomen Pelvis W Contrast (01/23/2022 10:15 AM CDT) Anatomical Region Laterality Modality Body N/A Computed Tomogra phy 01/23/2022 10:3 7 AM CDT Impressions 01/23/2022 10:37 AM CDT 1. ??Stable posttreatment changes within the paramediastinal right upper lung, without convincing evidence of disease progression. 2. ??There are new scattered tree-in-bud nodules throughout the bilateral lung bases, which is likely infectious or inflammatory, possibly relating to aspiration. Recommend close attention on follow-up imaging in 3 months to document resolution, as metastatic disease cannot be entirely excluded. 3. ??No acute abnormality is identified within the abdomen or pelvis. There is a 1.2 cm hypodense lesion along the medial aspect of the right kidney, which is stable from at least July 2017, almost certainly benign, however a solid renal neoplasm not entirely excluded. Close attention on follow-up imaging is recommended. Electronically signed by: Shawn Dior M.D. Narrative 01/23/2022 10:37 AM CDT EXAMINATION: ??Computed tomography of the chest, abdomen and pelvis with intravenous contrast HISTORY: 71-year-old woman with history of right upper lobe cancer status post radiation completed in July 2017. TECHNIQUE: ??Transaxial computed tomographic images of the chest, abdomen and pelvis were obtained with intravenous contrast according to the standard protocol after the uneventful administration of 120 mL Opti-Ray 350 intravenous contrast. COMPARISON: PET/CT dated 08/11/[address] dated 07/25/2021. CT chest abdomen and pelvis dated 07/09/2017. FINDINGS: ?? Chest: The thyroid gland is normal. No supraclavicular, axillary, or mediastinal lymphadenopathy. The heart is normal in size. No pericardial effusion. There is no significant calcific atherosclerotic involvement of the coronary arteries. There is calcific atherosclerosis of the aortic arch. Paramediastinal architectural distortion is redemonstrated within the right upper lung, with unchanged volume loss from 07/25/2021. No new nodularity is identified to suggest residual or recurrent disease. Subpleural reticulation, particularly at the lung bases is new, with scattered tree-in-bud nodularity throughout both lung bases, left greater than right, possibly relating to aspiration. No pneumonic pulmonary consolidation, pleural effusion, or pneumothorax. Abdomen/Pelvis: No focal hepatic lesion is identified. There is diffuse hepatic steatosis. No biliary ductal dilatation. There is cholelithiasis without findings of cholecystitis. The adrenal glands, spleen, and pancreas are grossly normal. A 12 mm hypodense lesion along the medial aspect of the mid right kidney (series 2, image 165) is stable from at least 07/09/2017. An additional tiny hypoattenuating lesion within the lower pole the right kidney is too small to characterize but stable. No hydronephrosis or nephrolithiasis. The urinary bladder is mostly decompressed. The uterus is normal in size without adnexal mass lesions. There is a large paraumbilical fat-containing hernia. The stomach, small bowel, and colon are normal in course and caliber without focal wall thickening or evidence of obstruction. The appendix is normal. There is mild sigmoid diverticulosis without findings of diverticulitis. No free intraperitoneal fluid or gas. No abdominopelvic lymphadenopathy. There is moderate calcific atherosclerotic involvement of the abdominal aorta and iliac arteries. Abdominal vasculature is grossly patent. Bone windows demonstrate no suspicious osseous lesions. Procedure Note Shawn Dior MD - 01/23/2022 EXAMINATION: Computed tomography of the chest, abdomen and pelvis with intravenous contrast HISTORY: 71-year-old woman with history of right upper lobe cancer status post radiation completed in July 2017. TECHNIQUE: Transaxial computed tomographic images of the chest, abdomen and pelvis were obtained with intravenous contrast according to the standard protocol after the uneventful administration of 120 mL Opti-Ray 350 intravenous contrast. COMPARISON: PET/CT dated 08/11/[address] dated 07/25/2021. CT chest abdomen and pelvis dated 07/09/2017. FINDINGS: Chest: The thyroid gland is normal. No supraclavicular, axillary, or mediastinal lymphadenopathy. The heart is normal in size. No pericardial effusion. There is no significant calcific atherosclerotic involvement of the coronary arteries. There is calcific atherosclerosis of the aortic arch. Paramediastinal architectural distortion is redemonstrated within the right upper lung, with unchanged volume loss from 07/25/2021. No new nodularity is identified to suggest residual or recurrent disease. Subpleural reticulation, particularly at the lung bases is new, with scattered tree-in-bud nodularity throughout both lung bases, left greater than right, possibly relating to aspiration. No pneumonic pulmonary consolidation, pleural effusion, or pneumothorax. Abdomen/Pelvis: No focal hepatic lesion is identified. There is diffuse hepatic steatosis. No biliary ductal dilatation. There is cholelithiasis without findings of cholecystitis. The adrenal glands, spleen, and pancreas are grossly normal. A 12 mm hypodense lesion along the medial aspect of the mid right kidney (series 2, image 165) is stable from at least 07/09/2017. An additional tiny hypoattenuating lesion within the lower pole the right kidney is too small to characterize but stable. No hydronephrosis or nephrolithiasis. The urinary bladder is mostly decompressed. The uterus is normal in size without adnexal mass lesions. There is a large paraumbilical fat-containing hernia. The stomach, small bowel, and colon are normal in course and caliber without focal wall thickening or evidence of obstruction. The appendix is normal. There is mild sigmoid diverticulosis without findings of diverticulitis. No free intraperitoneal fluid or gas. No abdominopelvic lymphadenopathy. There is moderate calcific atherosclerotic involvement of the abdominal aorta and iliac arteries. Abdominal vasculature is grossly patent. Bone windows demonstrate no suspicious osseous lesions. IMPRESSION: 1. Stable posttreatment changes within the paramediastinal right upper lung, without convincing evidence of disease progression. 2. There are new scattered tree-in-bud nodules throughout the bilateral lung bases, which is likely infectious or inflammatory, possibly relating to aspiration. Recommend close attention on follow-up imaging in 3 months to document resolution, as metastatic disease cannot be entirely excluded. 3. No acute abnormality is identified within the abdomen or pelvis. There is a 1.2 cm hypodense lesion along the medial aspect of the right kidney, which is stable from at least July 2017, almost certainly benign, however a solid renal neoplasm not entirely excluded. Close attention on follow-up imaging is recommended. Electronically signed by: Shawn Dior M.D. Zeeshan Rain MD IMG CT PROCEDURES Sada l Result * PET/CT FDG Skull to Thigh (08/11/2021 10:54 AM FITNESS MANAGEMENT DIRECTOR) Anatomical Region Laterality Modality N/A Positron Emissio n Tomography (PET) 08/11/2021 12:1 6 PM FITNESS MANAGEMENT DIRECTOR Impressions 08/11/2021 12:36 PM FITNESS MANAGEMENT DIRECTOR No FDG PET evidence of recurrent/residual malignancy. [...] Cecelia Xie M.D. Narrative 08/11/2021 12:36 PM FITNESS MANAGEMENT DIRECTOR EXAMINATION: TUMOR FDG-PET/CT IMAGING DATE OF STUDY: [...] obtained. ??The study was interpreted on the [employer] workstation. ??The mean liver SUV (reported for quality assurance monitor body purposes) is 2.6. The total scanned area [...] obtained. The study was interpreted on the [employer] workstation. The mean liver SUV (reported for quality assurance monitor body purposes) is 2.6. The total scanned area [...] lobe, right bronchus or lung (HCC)- Primary Need for prophylactic vaccination and inoculation against influenza Malignant neoplasm of upper lobe, right bronchus or lung (HCC) Malignant neoplasm of upper lobe, right bronchus or lung (HCC) documented in this encounter Historical Medications * This list may reflect changes made after this encounter. fluticasone-umec lidin-vilanter (Trelegy Ellipta) 100-62.5-25 mcg inhaler Trelegy Ellipta 07/20/2022 traMADoL (ULTRAM) 50 mg tablet tramadol 50 mg tablet TAKE 1 TABLET BY MOUTH TWICE DAILY NEEDED FOR KNEE PAIN 03/08/2023 added in this encounter Orders Immunization/Injection Count Last Ordered Date First Ordered Date FLU VACCINE MDCK QUAD PF 2Y+ IM - FLUCELVAX 1 07/28/2021 Appointment Requests Count Last Ordered Date Fi rst Ordered Date [facility] CLINIC APPOINTMENT REQUEST 2 022 07/28/2021 [facility] LAB APPOINTMENT 1 01/26/2022 documented in this encounter Care Teams Head Of Stock Relationship Specialty Start Date End Date Paula Robles NP PCP - General 05/31/17 Zeeshan Rain MD Medical Oncologist/[facility] Medical Oncology 02/11/18 08/23/22 Addy Mathur MD PhD [address] [place] [address] Radiation Oncologist Radiation Oncology 03/10/18 documented as of this encounter
--- OUTSIDE RECORDS SUMMARY | 2024-08-06 17:34 | XMS_ITS | Encounter Summary ---
Author Organization [facility] Healthcare Address [address] [place] [address] Care Team Providers Care Roundhouse Worker Name Role Phone Paula Robles JIGSAW OPERATOR Primary Care Provider + Zeeshan Rain MD Unavailable [phone] Addy Mathur MD PhD Unavailable + [phone] Encounter Details Date Type Department Care Team (Latest Contact Info) Description 07/20/2022 9:[address] REFEREE - 07/20/2022 3:[address] REFEREE Hospital Encounter [facility] ([facility]) [address] [place] [phone] Malignant neoplasm of upper lobe, right bronchus or lung (HCC) Discharge Disposition: Discharge to home or self care Social History Tobacco Use Types Packs/Day Years Used Date Smoking Tobacco: Former Cigarettes Smokeless Tobacco: Never Comments No Sex and Gender Information Value Date Recorded Sex Assigned at Not on file Legal Sex Female 1:[address] REFEREE Gender Identity Not on file Sexual Orientation [...] Priority Date/Time Associated Diagnosis Comments EGFR STAT 07/20/2022 10:[address] REFEREE Malignant neoplasm of upper lobe, right bronchus or lung (HCC) DIFFERENTIAL AUTO Routine 07/20/2022 10: [address] REFEREE Malignant neoplasm of upper lobe, right bronchus or lung (HCC) CBC WITH AUTO DIFFERENTIAL Routine 07/20/2022 10:[address] REFEREE Malignant neoplasm of upper lobe, right bronchus or lung (HCC) COMPREHENSIVE METABOLIC PANEL STAT 07/20/2022 10:[address] REFEREE Malignant neoplasm of upper lobe, right bronchus or lung (HCC) documented in this encounter Results * eGFR (07/20/2022 10:[address] REFEREE) eGFR >90 90 - 130 mL/min/1. 73 m2 [facility] Comment: Interpretive Data Reference Interval [...] last reviewed 2021. Testing performed by: [facility], [address] [place] [phone] Blood 07/20/2022 10:[address] REFEREE 07/20/2022 10:[address] REFEREE Zeeshan Rain MD LAB BLOOD ORDERABLES F inal Result [facility] One [facility] [place] [address] * Differential, auto (07/20/2022 10:[address] REFEREE) Neutrophil abs 3.2 1.8 - 6.6 K/cumm [facility] Comment:Testing performed by : [facility], [address] [place] [phone] Lymphocyte abs 2.0 1.2 - 3.3 K/cumm [facility] Comment:Testing performed by : [facility], [address] [place] [phone] Monocyte abs 0.4 0.2 - 1.2 K/cumm [facility] Comment:Testing performed by : [facility], [address] [place] [phone] Eosinophil abs 0.2 0.0 - 0.5 K/cumm [facility] Comment:Testing performed by : [facility], [address] [place] [phone] Basophil abs 0.1 0.0 - 0.2 K/cumm [facility] Comment:Testing performed by : [facility], [address] [place] [phone] Neutrophil pct 54.6 % [facility] Comment: Interpretive Data Percent cell count reference ranges are not reported, since discordance with absolute values may lead to misinterpretation of CBC data. Current Interpretive Data was last revised on 2017. Testing performed by: [facility], [address] [place] [phone] Lymphocyte pct 34.6 % [facility] Comment: Interpretive Data Percent cell count reference ranges are not reported, since discordance with absolute values may lead to misinterpretation of CBC data. Current Interpretive Data was last revised on 2017. Testing performed by: [facility], [address] [place] [phone] Monocyte pct 7.0 % [facility] Comment:Testing performed by : [facility], [address] [place] [phone] Eosinophil pct 2.7 % [facility] Comment:Testing performed by : [facility], [address] [place] [phone] Basophil pct 1.1 % [facility] Comment:Testing performed by : [facility], [address] [place] [phone] Blood 07/20/2022 10:[address] REFEREE 07/20/2022 10:[address] REFEREE us Zeeshan Rain MD LAB BLOOD ORDERABLES F inal Result [facility] [place] [address] * CBC with auto differential (07/20/2022 10:[address] REFEREE) WBC 5.8 3.8 - 9.8 K/cumm [facility] Comment:Testing performed by : [facility], [address] [place] [phone] Hgb 14.1 12.1 - 15.1 g/dL [facility] Comment:Testing performed by : [facility], [address] [place], [place] [id number] Hct 42.1 36.1 - 44.3 % [facility] Comment:Testing performed by : [facility], [address] [place] [address] Plt 203 140 - 440 K/cumm [facility] Comment:Testing performed by : [facility], [address] [place], [place] [id number] MPV 8.2 6.8 - 10.4 fL [facility] Comment:Testing performed by : [place] [address] RBC 4.52 3.90 - 5.00 M/cumm [facility] Comment:Testing performed by : [place] [address] MCV 93.3 80.0 - 97.6 fL [facility] Comment:Testing performed by : [facility], [address] [place], [place] [id number] MCH 31.2 26.7 - 33.7 pg [facility] Comment:Testing performed by : [place] [address] MCHC 33.4 32.7 - 35.5 g/dL [facility] Comment:Testing performed by : [place] [id number] RDW CV 13.8 11.8 - 14.6 % [facility] Comment:Testing performed by : [place] [id number] NRBC abs 0.00 0.00 - 0.01 K/cumm [facility] Comment:Testing performed by : [place] [address] Blood 07/20/2022 10:[address] REFEREE 07/20/2022 10:[address] REFEREE us Zeeshan Rain MD LAB BLOOD ORDERABLES F inal Result [facility] [place] [address] * Comprehensive metabolic panel (07/20/2022 10:[address] REFEREE) Sodium 141 135 - 145 mmol/L [facility] Comment:Testing performed by : [facility], [address] [place] [phone] Potassium, pl 3.9 3.3 - 4.9 mmol/L [facility] Comment:Testing performed by : [facility], [address] [place] [phone] Chloride 103 97 - 110 mmol/L [facility] Comment:Testing performed by : [facility], [address] [place] [phone] CO2 30 22 - 32 mmol/L [facility] Comment:Testing performed by : [facility], [address] [place] [phone] Anion gap 8 2 - 15 mmol/L [facility] Comment:Testing performed by : [facility], [address] [place] [phone] BUN 13 8 - 25 mg/dL [facility] Comment:Testing performed by : [facility], [address] [place] [phone] Creatinine 0.67 0.60 - 1.10 mg/dL [facility] Comment:Testing performed by : [facility], [address] [place] [phone] Glucose 102 70 - 199 mg/dL [facility] Comment: Interpretive Data Fasting glucose >/= 126 [...] last revised 2017. Testing performed by: [facility], [address] [place] [phone] Calcium 9.9 8.5 - 10.3 mg/dL [facility] Comment:Testing performed by : [facility], [address] [place] [phone] Bilirubin, total 0.5 0.1 - 1.2 mg/dL [facility] Comment:Testing performed by : [facility], [address] [place] [phone] Protein, pl 7.0 6.5 - 8.5 g/dL [facility] Comment:Testing performed by : [facility], [address] [place] [phone] Albumin 4.0 3.5 - 5.0 g/dL [facility] Comment:Testing performed by : [facility], [address] [place] [phone] Alk phos 101 40 - 130 Units/L [facility] Comment:Testing performed by : [facility], [address] [place] [phone] ALT 24 7 - 45 Units/L [facility] Comment:Testing performed by : [facility], [address] [place] [phone] AST 19 10 - 45 Units/L [facility] Comment:Testing performed by : [facility], [address] [place] [phone] Blood 07/20/2022 10:[address] REFEREE 07/20/2022 10:[address] REFEREE Zeeshan Rain MD LAB BLOOD ORDERABLES F inal Result [facility] [place] [address] documented in this encounter Visit Diagnoses Diagnosis Malignant neoplasm of upper lobe, right bronchus or lung (HCC) documented in this encounter Care Teams Roundhouse Worker Relationship Specialty Start Date End Date Paula Robles NP PCP - General 05/31/17 Zeeshan Rain MD Medical Oncologist/Funeral Service Manager Medical Oncology 02/11/18 08/23/22 Addy Mathur MD PhD [address] [place] [id number] Radiation Oncologist Radiation Oncology 03/10/18 documented as of this encounter
--- OUTSIDE RECORDS SUMMARY | 2024-08-06 17:34 | XMS_ITS | Encounter Summary ---
Author Organization [facility] Address [address] [place] [address] Phone Care Team Providers Care Salvage Grinder Name Role Phone Paula Robles SILICA DRY PRESS HELPER Primary Care Provider + Zeeshan Rain MD Unavailable [phone] Addy Mathur MD PhD Unavailable [phone] Encounter Details Date Type Department Care Team (Late st Contact Info) Description 07/20/2022 10:00 AM ROUTE SALES REPRESENTATIVE Lab [facility] Oncology [address] [facility] [place] 7th [place] [address] [place] [phone] Malignant neoplasm of upper lobe, right bronchus or lung (HCC) Social History Tobacco Use Types Packs/Day Years Used Date Smoking Tobacco: Former Cigarettes Smokeless Tobacco: Never Comments No Sex and Gender Information Value Date Recorded Sex Assigned at Not on file Legal Sex Female 1:02 AM ROUTE SALES REPRESENTATIVE Gender Identity Not on file Sexual Orientation Not on file documented as of this encounter Plan of Treatment Not on file documented as of this encounter Visit Diagnoses Diagnosis Malignant neoplasm of upper lobe, right bronchus or lung (HCC) documented in this encounter Orders Appointment Requests Count Last Ordered Date Fi rst Ordered Date ONCBCN LAB APPOINTMENT 1 07/20/2022 documented in this encounter Care Teams Salvage Grinder Relationship Specialty Start Date End Date Paula Robles NP PCP - General 05/31/17 Zeeshan Rain MD Medical Oncologist/Apprentice Machinist Outside Medical Oncology 02/11/18 08/23/22 Addy Mathur MD PhD [address] [place] [address] Radiation Oncologist Radiation Oncology 03/10/18 documented as of this encounter
--- OUTSIDE RECORDS SUMMARY | 2024-08-06 17:34 | XMS_ITS | Encounter Summary ---
Author Organization [facility] Healthcare Address [address] [place] [address] Care Team Providers Care Hoof Trimmer Name Role Phone Paula Robles CREDIT AND COLLECTIONS REPRESENTATIVE Primary Care Provider + Zeeshan Rain MD Unavailable [phone] Addy reyna MD PhD Unavailable [phone] Reason for Referral * Diagnostic Imaging (Routine) - Closed Specialty Diagnoses / Procedures Referred By Alan bangura Referred To Contact Radiology Diagnoses Malignant neoplasm of upper lobe, right bronchus or lung (HCC) Procedures MRI Brain W WO Contrast Zeeshan Rain MD Phone: tel: fax: [address] [phone] Referral ID Status Reason Start Date Expiration Date Visits Re quested Visits Authorized [id number] Closed 05/13/2020 06/12/2021 1 1 DRATION UNIT OPERATOR Reason for Visit * Diagnostic Imaging (Routine) - Closed Specialty Diagnoses / Procedures Referred By Alan bangura Referred To Contact Radiology Diagnoses Malignant neoplasm of upper lobe, right bronchus or lung (HCC) Procedures MRI Brain W WO Contrast Zeeshan Rain MD Phone: tel: fax: [address] [facility] [place] [address] Referral ID Status Reason Start Date Expiration Date Visits Re quested Visits Authorized [id number] Closed 05/13/2020 06/12/2021 1 1 Encounter Details Date Type Department Care Team (Latest Contact Info) Description 08/07/2020 12:41 PM DEHYDRATION UNIT OPERATOR - 08/07/2020 11:59 PM DEHYDRATION UNIT OPERATOR Hospital Encounter [facility] [address] [place] [id number] Zeeshan Rain MD [address] [place] [address] Malignant neoplasm of upper lobe, right bronchus or lung (CMS/HCC) Discharge Disposition: Discharge to home or self care Social History Tobacco Use Types Packs/Day Years Used Date Smoking Tobacco: Former Cigarettes Smokeless Tobacco: Never Comments No Sex and Gender Information Value Date Recorded Sex Assigned at Not on file Legal Sex Female 1:02 AM DEHYDRATION UNIT OPERATOR Gender Identity Not on file Sexual Orientation [...] 2 (two) times a day 60 tablet 07/31/2020 1 predniSONE (DELTASONE) 10 mg tablet pack prednisone [...] CONTRAST Schedule Routine, Read Routine (OP Routine) 08/07/2020 2:46 PM DEHYDRATION UNIT OPERATOR Malignant neoplasm of upper lobe, right bronchus or lung (CMS/HCC) POCT CREATININE - DEVICE Routine 08/07/2020 1:06 PM DEHYDRATION UNIT OPERATOR documented in this encounter Results * MRI Brain W WO Contrast (08/07/2020 2:46 PM DEHYDRATION UNIT OPERATOR) Anatomical Region Laterality Modality Head and Neck N/A Magnetic Resonan ce 08/07/2020 3:46 PM DEHYDRATION UNIT OPERATOR Impressions 08/07/2020 3:47 PM DEHYDRATION UNIT OPERATOR No evidence of intracranial metastatic disease. Dictated by: Evie Hutchins M.D. The radiology attending physician has personally reviewed this study, and had reviewed and/or edited this written report and agrees with it. Electronically signed by: Bhaskar Cortez M.D. Narrative 08/07/2020 3:47 PM DEHYDRATION UNIT OPERATOR EXAMINATION: Magnetic resonance imaging (MRI) of the brain and brainstem without and with contrast HISTORY: Lung cancer status post prophylactic whole brain radiation, evaluate for metastatic disease TECHNIQUE: Multiplanar multi-weighted MRI of the brain and brainstem was performed without and with intravenous contrast using the general brain protocol. Contrast information: 20 mL Dotarem COMPARISON: Multiple priors, most recently 01/11/2020 FINDINGS: The scalp and calvarium are normal. ?? The superior sagittal sinus demonstrates normal venous flow. ??The corpus callosum is normal in shape and signal intensity. ??The posterior fossa is unremarkable. The pituitary and sella are normal. ??The brainstem and craniocervical junction are unremarkable. Diffusion weighted images reveal no hyperintensities to suggest acute cerebral infarction. ??Scattered T2/FLAIR hyperintensities likely reflect chronic small vessel disease. The susceptibility weighted sequences reveal no evidence of acute or chronic hemorrhage. ??The ventricles are normal in size and position without evidence of hydrocephalus . There are no areas of abnormal contrast enhancement. The paranasal sinuses are normal. ??The visualized portions of the mastoids are unremarkable. ??The orbits appear normal. ??Normal flow voids are demonstrated in the carotid arteries and basilar artery. Procedure Note Bhaskar Cortez MD - 08/07/2020 EXAMINATION: Magnetic resonance imaging (MRI) of the brain and brainstem without and with contrast HISTORY: Lung cancer status post prophylactic whole brain radiation, evaluate for metastatic disease TECHNIQUE: Multiplanar multi-weighted MRI of the brain and brainstem was performed without and with intravenous contrast using the general brain protocol. Contrast information: 20 mL Dotarem COMPARISON: Multiple priors, most recently 01/11/2020 FINDINGS: The scalp and calvarium are normal. The superior sagittal sinus demonstrates normal venous flow. The corpus callosum is normal in shape and signal intensity. The posterior fossa is unremarkable. The pituitary and sella are normal. The brainstem and craniocervical junction are unremarkable. Diffusion weighted images reveal no hyperintensities to suggest acute cerebral infarction. Scattered T2/FLAIR hyperintensities likely reflect chronic small vessel disease. The susceptibility weighted sequences reveal no evidence of acute or chronic hemorrhage. The ventricles are normal in size and position without evidence of hydrocephalus . There are no areas of abnormal contrast enhancement. The paranasal sinuses are normal. The visualized portions of the mastoids are unremarkable. The orbits appear normal. Normal flow voids are demonstrated in the carotid arteries and basilar artery. IMPRESSION: No evidence of intracranial metastatic disease. Dictated by: Evie Hutchins M.D. The radiology attending physician has personally reviewed this study, and had reviewed and/or edited this written report and agrees with it. Electronically signed by: Bhaskar Cortez M.D. Zeeshan Rain MD IMG MRI PROCEDURES Fin al Result * POCT creatinine (08/07/2020 1:06 PM DEHYDRATION UNIT OPERATOR) Creatinine POC 0.8 0.6 - 1.1 mg/dL [facility] Blood specimen (specimen) 08/07/2020 1:06 PM DEHYDRATION UNIT OPERATOR 08/07/2020 1:06 PM DEHYDRATION UNIT OPERATOR us Zeeshan Rain MD LAB POCT ORDERABLES - DEVICE Final Result [facility] [place] [address] documented in this encounter Visit Diagnoses Diagnosis Malignant neoplasm of upper lobe, right bronchus or lung (HCC) documented in this encounter Administered Medications Inactive Administered Medications - up to 3 most recent administrations Medication Order MAR Action Action Date Dose Rate Site gadoterate meglumine (DOTAREM) 0.5 mmol/mL injection 20 mL 20 mL, intravenous, Once in imaging, contrast, Starting on Wed08/07/20 at 1433, For 1 dose Given 08/07/2020 2:33 PM DEHYDRATION UNIT OPERATOR 20 mL documented in this encounter Orders Medications Ordered That Adam ht Not Have Been Administered Count Last Ordered Date First Ordered Date gadoterate meglumine (DOTARE M) 0.5 mmol/mL injection 20 mL 1 08/07/2020 documented in this encounter Care Teams Hoof Trimmer Relationship Specialty Start Date End Date Paula Robles NP PCP - General 05/31/17 Zeeshan Rain MD Medical Oncologist/Well Cleaner Medical Oncology 02/11/18 08/23/22 Addy Mathur MD PhD [address] [place] [address] Radiation Oncologist Radiation Oncology 03/10/18 documented as of this encounter
--- OUTSIDE RECORDS SUMMARY | 2024-08-06 17:34 | XMS_ITS | Encounter Summary ---
Author Organization [facility] Address [address] [place] [address] Phone Care Team Providers Care Bed Manager Name Role Phone Travis, Paula Eleni COLEMAN Primary Care Provider + Zeeshan Rain MD Unavailable [phone] [facility] + [phone] Reason for Referral * Consultation (Routine) - Closed Specialty Diagnoses / Procedures Referred By Alan bangura Referred To Contact Urology Diagnoses Malignant neoplasm of upper lobe, right bronchus or lung (HCC) Zeeshan Rain MD Phone: tel: fax: [facility] (All Locations) Referral ID Status Reason Start Date Expiration Date V isits Requested Visits Authorized [id number] Closed Specialty Services Required 01/26/2022 02/25/2023 99 99 Question Answer Please select the performing region: [facility] (All Locations) [[id number]] # of visits: [address] Rain would like to refer Ms. Morgan for recent CT findings: No acute abnormality is identified within the abdomen or pelvis. There is a 1.2 cm hypodense lesion along the medial aspect of the right kidney, which is stable from at least July 2017, almost certainly benign, however a solid renal neoplasm not entirely excluded. Close attention on follow-up imaging is recommended. She is aware your office will be calling her for an appointment * Diagnostic Imaging (Routine) - Closed Specialty Diagnoses / Procedures Referred By Alan bangura Referred To Contact Radiology Diagnoses Malignant neoplasm of upper lobe, right bronchus or lung (HCC) Procedures MRI Brain W WO Contrast Zeeshan Rain MD Phone: tel: fax: [address] [phone] Referral ID Status Reason Start Date Expiration Date Visits Re quested Visits Authorized [id number] Closed 01/26/2022 02/25/2023 1 1 * Diagnostic Imaging (Routine) - Closed Specialty Diagnoses / Procedures Referred By Alan bangura Referred To Contact Radiology Diagnoses Malignant neoplasm of upper lobe, right bronchus or lung (HCC) Procedures CT Chest Abdomen Pelvis W Contrast Zeeshan Rain MD Phone: tel: fax: [address] [phone] Referral ID Status Reason Start Date Expiration Date Visits Re quested Visits Authorized [id number] Closed 01/26/2022 02/25/2023 1 1 Encounter Details Date Type Department Care Team (Late st Contact Info) Description 01/26/2022 10:40 AM CDT Office Visit [facility] Oncology [address] [facility] 7th [place] [address] [place] [id number] Zeeshan Rain MD [address] [place] [address] Malignant neoplasm of upper lobe, right bronchus or lung (HCC) (Primary Dx) Social History Tobacco Use Types Packs/Day Years Used Date Smoking Tobacco: Former Cigarettes Smokeless Tobacco: Never Comments No Sex and Gender Information Value Date Recorded Sex Assigned at Not on file Legal Sex Female 1:02 AM QUALITY CONTROL INDUSTRIAL ENGINEER Gender Identity Not on file Sexual Orientation Not on file documented as of this encounter Last Filed Vital Signs Vital Sign Reading Time Taken Comments Blood Pressure 152/86 01/26/2022 10:23 AM CDT Pulse 92 01/26/2022 10:21 AM CDT Temperature 36.1 ??C (97 ??F) 01/26/2022 10: 21 AM CDT Respiratory Rate 20 01/26/2022 10:2 1 AM CDT Oxygen Saturation 91% 01/26/2022 10: 30 AM CDT notified team Inhaled Oxygen Concentration - - Weight 110.3 kg (243 lb 3.2 oz) 01/26/2022 10:23 AM CDT Height - - Body Mass Index 43.09 07/28/2021 10:29 AM QUALITY CONTROL INDUSTRIAL ENGINEER documented in this encounter Progress Notes * Mily Reddy DNP - 01/26/2022 10:40 AM CDT [facility] DEPARTMENT OF MEDICINE - MEDICAL ONCOLOGY [address] [place] [phone] PHONE: FAX: Medical Oncology Follow-up Note Oncology History Overview Note DIAGNOSIS: 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 Tumor specimen demonstrates CD56, synaptophysin, cytokeratin, and [...] new neurological or systemic symptoms. She reports stable dyspnea on exertion - she continues to follow with her classifications officer cc/cm for COPD. This is largely stable. She reports her appetite and energy are stable. She performs all ADLs without assistance. She denies any fevers, chills, nausea, vomiting, worsening cough, rash or diarrhea. She denies any new complaints. PAST MEDICAL HISTORY: 1. COPD/asthma. 2. History of community-acquired pneumonia. 3. Radiographic findings of pulmonary hypertension on CT scan. SOCIAL HISTORY: She is currently retired. 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 She lives in [place], [place]. Shequit smoking in 2008 but smoked 1 to [...] Systems: All other systems negative Vitals: BP: 152/86 Temp: 36.1 ??C (97 ??F) Temp src: Transdermal Pulse: 92 Resp: 20 SpO2: 91 % (notified team) Weight: 110.3 kg (243 lb 3.2 oz) Physical Exam: General: Alert, awake and [...] CBC: Lab Results Component Value Date/Time WBC 6.5 01/26/2022 10:11 AM HGB 13.4 01/26/2022 10:11 AM HCT 39.1 01/26/2022 10:11 AM MCV 91.9 01/26/2022 10:11 AM NEUTROABS 3.9 01/26/2022 10:11 AM CMP: Lab Results Component Value Date/Time SODIUM 140 01/26/2022 10:11 AM POTASSIUM 3.1 (L) 01/26/2022 10:11 AM CO2 37 (H) 01/26/2022 10:11 AM BUNSER 13 01/26/2022 10:11 AM GLUCOSE 100 01/26/2022 10:11 AM CREATININE 0.72 01/26/2022 10:11 AM CALCIUM 9.5 01/26/2022 10:11 AM CHLORIDE 95 (L) 01/26/2022 10:11 AM ALBUMIN 4.0 01/26/2022 10:11 AM AST 19 01/26/2022 10:11 AM ALT 19 01/26/2022 10:11 AM ALKPHOS 96 01/26/2022 10:11 AM BILITOT 0.7 01/26/2022 10:11 AM PROT 7.3 01/26/2022 10:11 AM ANIONGAP 8 01/26/2022 10:11 AM Radiology: CT Chest Abdomen Pelvis W Contrast: 01/23/2022 Stable posttreatment changes within the paramediastinal right upper lung, without convincing evidence of disease progression. There are new scattered tree-in-bud nodules throughout the bilateral lungbases, which is likely infectious or inflammatory, possibly relating to aspiration. Recommend close attention on follow-up imaging in 3 months to document resolution, as metastatic disease cannot be entirely excluded. No acute abnormality is identified within the abdomen or pelvis. There is a 1.2 cm hypodense lesion along the medial aspect of the right kidney, which is stable from at least July 2017, almost certainly benign, however a solid renal neoplasm not entirely excluded. Close attention on follow-up imaging is recommended. Assessment and Plan: Gaby Morgan is a 71-year-old lady with limited stage small cell lung cancer for which she received concurrent chemoradiation followed by prophylactic cranial irradiation. I reviewed the most recent CT imaging with . Gaby Morgan and her revealing no clearcut evidence of disease progression. We will see her back in 6 months with a restaging CT scan of the C/A/P and a restaging brain MRI. The new tree-in-bud nodules will be discussed at tumor board as well - she is aware. We will refer her to urology for the right kidney lesion which is stable. She will call us in the interimfor any questions, concerns, or worsening symptoms. She is agreeable with this plan of care. Mily Reddy DNP, SALES TRAINER[employer] Division of Oncology [facility] in [place] documented in this encounter Miscellaneous Notes * Addendum Note - Kenny May CMA - 01/26/2022 10:40 AM CDTAddended by: KENNY MAY on: 01/29/2022 09:03 AM Modules accepted: Orders * Addendum Note - Kenny May CMA - 01/26/2022 10:40 AM CDTAddended by: KENNY MAY on: 01/29/2022 09:17 AM Modules accepted: Orders documented in this encounter Plan of Treatment Scheduled Referrals Name Type Priority Associated Diagnoses Order Schedule Ambulatory referral to Urology Outpatient Referral Routine Malignant neoplasm of upper lobe, right bronchus or lung (HCC) Expected: 02/09/2022 (Approximate), Expires: 01/26/2023 documented as of this encounter Results * Comprehensive metabolic panel (07/20/2022 10:16 AM QUALITY CONTROL INDUSTRIAL ENGINEER) Sodium 141 135 - 145 mmol/L [facility] Comment:Testing performed by : [facility], [address] [place] [phone] Potassium, pl 3.9 3.3 - 4.9 mmol/L [facility] Comment:Testing performed by : [facility], [address] [place] [phone] Chloride 103 97 - 110 mmol/L [facility] Comment:Testing performed by : [facility], [address] [place] [phone] CO2 30 22 - 32 mmol/L [facility] Comment:Testing performed by : [facility], [address] [place] [phone] Anion gap 8 2 - 15 mmol/L [facility] Comment:Testing performed by : [facility], [address] [place] [phone] BUN 13 8 - 25 mg/dL [facility]IO [facility] Comment:Testing performed by : [facility], [address] [place] [phone] Creatinine 0.67 0.60 - 1.10 mg/dL [facility] Comment:Testing performed by : [address] [phone] Glucose 102 70 - 199 mg/dL [facility] Comment: [...] was last revised 2017. Testing performed by: [address] [phone] Calcium 9.9 8.5 - 10.3 mg/dL [facility] Comment:Testing performed by : [address] [phone] Bilirubin, total 0.5 0.1 - 1.2 mg/dL [facility] Comment:Testing performed by : [address] [phone] Protein, pl 7.0 6.5 - 8.5 g/dL [facility] Comment:Testing performed by : [address] [phone] Albumin 4.0 3.5 - 5.0 g/dL [facility] Comment:Testing performed by : [address] [phone] Alk phos 101 40 - 130 Units/L [facility] Comment:Testing performed by : [address] [phone] ALT 24 7 - 45 Units/L [facility] Comment:Testing performed by : [address] [phone] AST 19 10 - 45 Units/L [facility]IO [facility] Comment:Testing performed by : [facility], [address] [place] [phone] Blood 07/20/2022 10:1 6 AM QUALITY CONTROL INDUSTRIAL ENGINEER 07/20/2022 10:19 AM QUALITY CONTROL INDUSTRIAL ENGINEER Zeeshan Rain MD LAB BLOOD ORDERABLES F inal Result A[facility]ENIO [facility]LL[facility] Department [place] [address] * CBC with auto differential (07/20/2022 10:16 AM QUALITY CONTROL INDUSTRIAL ENGINEER) WBC 5.8 3.8 - 9.8 K/cumm A[facility]IO [facility]A Comment:Testing performed by : [facility], [address] [place] [phone] Hgb 14.1 12.1 - 15.1 g/dL A[facility]IO [facility] Comment:Testing performed by : [facility], [address] [place] [phone] Hct 42.1 36.1 - 44.3 % [facility] Comment:Testing performed by : [facility], [address] [place] [phone] Plt 203 140 - 440 K/cumm [facility] Comment:Testing performed by : [address] [phone] MPV 8.2 6.8 - 10.4 fL [facility] Comment:Testing performed by : [facility], [address] [place] [phone] RBC 4.52 3.90 - 5.00 M/cumm [facility] Comment:Testing performed by : [facility], [address] [place] [phone] MCV 93.3 80.0 - 97.6 fL [facility] Comment:Testing performed by : [address] [phone] MCH 31.2 26.7 - 33.7 pg [facility] Comment:Testing performed by : [facility], [address] [facility] [address] MCHC 33.4 32.7 - 35.5 g/dL [facility] Comment:Testing performed by : [facility], [address] [place] [phone] RDW CV 13.8 11.8 - 14.6 % [facility] Comment:Testing performed by : [facility], [address] [place] [phone] NRBC abs 0.00 0.00 - 0.01 K/cumm [facility] Comment:Testing performed by : [facility], [address] [place] [phone] Blood 07/20/2022 10:1 6 AM QUALITY CONTROL INDUSTRIAL ENGINEER 07/20/2022 10:19 AM QUALITY CONTROL INDUSTRIAL ENGINEER us Zeeshan Rain MD LAB BLOOD ORDERABLES F inal Result Performing Organization Address City/State/[facility] Co de Phone Number [facility] Department [place] [address] * MRI Brain W WO Contrast (07/17/2022 9:59 AM QUALITY CONTROL INDUSTRIAL ENGINEER) Anatomical Region Laterality Modality Head and Neck N/A Magnetic Resonan ce 07/17/2022 10:2 9 AM QUALITY CONTROL INDUSTRIAL ENGINEER Narrative 07/17/2022 11:27 AM QUALITY CONTROL INDUSTRIAL ENGINEER EXAM DESCRIPTION: ?? MRI BRAIN W WO CONTRAST REASON FOR STUDY: ?? eval for mets ?? Pt states finished chemo and radiation 2018 for lung cancer, follow up r/o met's. ??Pt has difficulty breathing especially in the supine position; also has COPD ?? TECHNIQUE: Multiplanar imaging includes noncontrast T1, T2, FLAIR, diffusion with ADC map and post contrast T1 sequences. Additional sequence(s) sensitive to blood products. ??Images stored on PACS. ? CONTRAST TYPE/DOSE: ?? 20mL of GADOTERATE MEGLUMINE 0.5 MMOL/ML INTRAVENOUS SOLUTION (SO) ??injected via ?? intravenous COMPARISON: ?? Brain MRI 07/25/2001 and PET-CT 08/11/2021 FINDINGS: CEREBRUM: ?? No hemorrhage, edema, or mass effect. ??Chronic lacunar infarcts in the grewal radiata and basal ganglia. ??No abnormal enhancement. ?? WHITE MATTER: ?? Moderate to severe multifocal and confluent areas of T2/FLAIR signal abnormality within the hemispheric white matter and deep mancilla nuclei that are nonspecific but most commonly related to chronic microvascular ischemia with additional consideration for post treatment related changes in the appropriate clinical setting. POSTERIOR FOSSA: ?? Brainstem and cerebellum appear unremarkable. ??No abnormal enhancement. DIFFUSION IMAGING: ?? No recent infarction. EXTRAAXIAL SPACES: ?? No hemorrhage. ??No mass or abnormal enhancement. BRAIN VOLUME: ?? Within normal limits for age. PITUITARY: ?? Unremarkable. VASCULATURE: ?? No flow disturbance identified. ORBITS: ?? No masses. Globes normal. PARANASAL SINUSES AND MASTOIDS: ?? No significant mucosal thickening or fluid. ?? OTHER: ?? No other significant finding. IMPRESSION: ?? 1. ?? No MR evidence of intracranial metastasis. 2. ?? No acute intracranial abnormality with chronic findings detailed above. THIS IS AN ELECTRONICALLY VERIFIED FINAL REPORT 07/17/2022 11:27 AM - Electronically signed by ??Phong Hernandez M.D. AG: AG D: ??07/17/2022 11:27 AM T: ??07/17/2022 11:27 AM Report ID: [id number] Reading Location: ??[id number] Procedure Note Phong Hernandez MD - 07/17/2022 EXAM DESCRIPTION: MRI BRAIN W WO CONTRAST REASON FOR STUDY: eval for mets Pt states finished chemo and radiation 2018 for lung cancer, follow up r/o met's. Pt has difficulty breathing especially in the supine position;also has COPD TECHNIQUE: Multiplanar imaging includes noncontrast T1, T2, FLAIR,diffusion with ADC map and post contrast T1 sequences. Additional sequence(s)sensitive to blood products. Images stored on PACS. CONTRAST TYPE/DOSE: 20mL of GADOTERATE MEGLUMINE 0.5 MMOL/ML INTRAVENOUS SOLUTION (SO) injected via intravenous COMPARISON: Brain MRI 07/25/2001 and PET-CT 08/11/2021 FINDINGS: CEREBRUM: No hemorrhage, edema, or mass effect. Chroniclacunar infarcts in the grewal radiata and basal ganglia. No abnormalenhancement. WHITE MATTER: Moderate to severe multifocal and confluent areas ofT2/FLAIR signal abnormality within the hemispheric white matter and deep graynuclei that are nonspecific but most commonly related to chronic microvascular ischemia with additional consideration for post treatment related changesin the appropriate clinical setting. POSTERIOR FOSSA: Brainstem and cerebellum appear unremarkable. Noabnormal enhancement. DIFFUSION IMAGING: No recent infarction. EXTRAAXIAL SPACES: No hemorrhage. No mass or abnormal enhancement. BRAIN VOLUME: Within normal limits for age. PITUITARY: Unremarkable. VASCULATURE: No flow disturbance identified. ORBITS: No masses. Globes normal. PARANASAL SINUSES AND MASTOIDS: No significant mucosal thickening orfluid. OTHER: No other significant finding. IMPRESSION: 1. No MR evidence of intracranial metastasis. 2. No acute intracranial abnormality with chronic findings detailedabove. THIS IS AN ELECTRONICALLY VERIFIED FINAL REPORT 07/17/2022 11:27 AM - Electronically signed by Phong Hernandez M.D. AG: JEET Report ID: [id number] Reading Location: [place] [address] Zeeshan Rain MD IMG MRI PROCEDURES Fin al Result * CT Chest Abdomen Pelvis W Contrast (07/17/2022 9:12 AM QUALITY CONTROL INDUSTRIAL ENGINEER) Anatomical Region Laterality Modality Body N/A Computed Tomogra phy 07/18/2022 9:19 AM QUALITY CONTROL INDUSTRIAL ENGINEER Narrative 07/18/2022 9:36 AM QUALITY CONTROL INDUSTRIAL ENGINEER EXAM DESCRIPTION: ?? CT CHEST ABDOMEN PELVIS [...] Findings Committee. J Am Tushar Radiol. 2017 Mar;14(8):5007-4108. THIS IS AN ELECTRONICALLY VERIFIED FINAL REPORT 07/18/2022 9:36 AM - Electronically signed by ??Shawn Delgado M.D. ML: ML D: ??07/18/2022 9:36 AM T: ??07/18/2022 9:36 AM Report ID: [id number] Reading Location: ??[id number] Procedure Note Shawn Delgado MD - 07/18/2022 [...] Findings Committee. J Am Tushar Radiol. 2017 Mar;14(8):1998-4003. THIS IS AN ELECTRONICALLY VERIFIED FINAL REPORT 07/18/2022 9:36 AM - Electronically signed by Shawn Delgado M.D. ML: ML Report ID: [id number] Reading Location: [place] [address] Zeeshan Rain MD IMG CT PROCEDURES Sada [...] Date ONCBCN CLINIC APPOINTMENT REQUEST 2 022 01/26/2022 ONCBCN LAB APPOINTMENT 1 07/20/2022 documented in this encounter Care Teams Bed Manager Relationship Specialty Start Date End Date Paula Robles NP PCP - General 05/31/17 Zeeshan Rain MD Medical Oncologist/Fly Maker Medical Oncology 02/11/18 08/23/22 Addy Mathur MD PhD [address] [place] [address] Radiation Oncologist Radiation Oncology 03/10/18 documented as of this encounter
--- OUTSIDE RECORDS SUMMARY | 2024-08-06 17:34 | XMS_ITS | Encounter Summary ---
Author Organization [facility] Healthcare Address [address] [place] [address] Care Team Providers Care Manufacturer Representative Name Role Phone Paula Robles Eleni CASHIER SUPERVISOR Primary Care Provider + Zeeshan Rain MD Unavailable [phone] Addy reyna MD PhD Unavailable + [phone] Reason for Referral * Diagnostic Imaging (Routine) - Closed Specialty Diagnoses / Procedures Referred By Alan bangura Referred To Contact Radiology Diagnoses Malignant neoplasm of upper lobe, right bronchus or lung (HCC) Procedures CT Chest Abdomen Pelvis W Contrast Zeeshan Rain MD Phone: tel: fax: [address] [address] Referral ID Status Reason Start Date Expiration Date Visits Re quested Visits Authorized [id number] Closed 02/03/2021 03/05/2022 1 1 CULTURE CONSULTANT Reason for Visit * Diagnostic Imaging (Routine) - Closed Specialty Diagnoses / Procedures Referred By Alan bangura Referred To Contact Radiology Diagnoses Malignant neoplasm of upper lobe, right bronchus or lung (HCC) Procedures CT Chest Abdomen Pelvis W Contrast Zeeshan Rain MD Phone: tel: fax: [facility] [place] [address] Referral ID Status Reason Start Date Expiration Date Visits Re quested Visits Authorized [id number] Closed 02/03/2021 03/05/2022 1 1 Encounter Details Date Type Department Care Team (Latest Contact Info) Description 07/25/2021 9:45 AM AGRICULTURE CONSULTANT Hospital Encounter [facility] [address] [place] [address] Zeeshan Rain MD [address] [place] [address] Malignant neoplasm of upper lobe, right bronchus or lung (HCC) Discharge Disposition: Discharge to home or self care Social History Tobacco Use Types Packs/Day Years Used Date Smoking Tobacco: Former Cigarettes Smokeless Tobacco: Never Comments No Sex and Gender Information Value Date Recorded Sex Assigned at Not on file Legal Sex Female 1:02 AM AGRICULTURE CONSULTANT Gender Identity Not on file Sexual [...] CONTRAST Schedule Routine, Read Routine (OP Routine) 07/25/2021 11:11 AM AGRICULTURE CONSULTANT Malignant neoplasm of upper lobe, right bronchus or lung (HCC) documented in this encounter Results * CT Chest Abdomen Pelvis W Contrast (07/25/2021 11:11 AM AGRICULTURE CONSULTANT) Anatomical Region Laterality Modality Body N/A Computed Tomogra phy 07/25/2021 11:5 3 AM AGRICULTURE CONSULTANT Impressions 07/25/2021 12:01 PM AGRICULTURE CONSULTANT Interval increase in mediastinal soft tissue thickening along the right mainstem bronchus. It is unclear if this represents recurrent disease versus postradiation changes. Recommend attention on follow-up. Dictated by: Prasanna Alfonso MD The radiology attending physician has personally reviewed this study, and had reviewed and/or edited this written report and agrees with it. Electronically signed by: Lenin Weeks M.D. 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 COMPARISON: 01/31/2021 FINDINGS: ?? Chest: Heart size is normal. No pericardial effusion. No supraclavicular, axillary, mediastinal, or hilar lymphadenopathy. Volume loss and architectural distortion of the right upper lobe and right middle lobe with associated bronchiectasis, similar in appearance to prior. Interval increase in soft tissue thickening along the right mainstem bronchus measuring up to 1.4 cm in thickness (table position 216.8). No pleural effusion. No pneumothorax. Abdomen/Pelvis: Mild hepatic steatosis. Periportal widening, similar to prior. No focal hepatic lesion pleural and hepatic veins are patent. Dependent small gallstones in the gallbladder. No evidence of cholecystitis. No intra or extrahepatic biliary ductal dilation. The spleen is normal. Splenule noted in the left upper quadrant anterior to the spleen. Mild fatty atrophy of the pancreas. Kidneys enhance symmetrically. Unchanged intermediate attenuation cyst the interpolar region of the left kidney, previously characterized as a minimally complex right renal cyst without suspicious features on the ultrasound dated 04/22/2019. No evidence of hydronephrosis or nephrolithiasis. The uterus is present. No adnexal mass. Colonic diverticulosis without evidence of diverticulitis. Submucosal fat in the colon and distal small bowel, likely from episodes of inflammation. No evidence of bowel obstruction. The aorta and great vessels are normal in caliber and course without evidence of aneurysmal dilation. Moderate atherosclerotic calcifications of the aorta extending into the bilateral iliac vasculature. No mesenteric, retroperitoneal, pelvic, or inguinal lymphadenopathy. No intraperitoneal free fluid or free air. Small fat-containing umbilical hernia. No suspicious lytic or blastic osseous lesion. 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 COMPARISON: 01/31/2021 FINDINGS: Chest: Heart size is normal. No pericardial effusion. No supraclavicular, axillary, mediastinal, or hilar lymphadenopathy. Volume loss and architectural distortion of the right upper lobe and right middle lobe with associated bronchiectasis, similar in appearance to prior. Interval increase in soft tissue thickening along the right mainstem bronchus measuring up to 1.4 cm in thickness (table position 216.8). No pleural effusion. No pneumothorax. Abdomen/Pelvis: Mild hepatic steatosis. Periportal widening, similar to prior. No focal hepatic lesion pleural and hepatic veins are patent. Dependent small gallstones in the gallbladder. No evidence of cholecystitis. No intra or extrahepatic biliary ductal dilation. The spleen is normal. Splenule noted in the left upper quadrant anterior to the spleen. Mild fatty atrophy of the pancreas. Kidneys enhance symmetrically. Unchanged intermediate attenuation cyst the interpolar region of the left kidney, previously characterized as a minimally complex right renal cyst without suspicious features on the ultrasound dated 04/22/2019. No evidence of hydronephrosis or nephrolithiasis. The uterus is present. No adnexal mass. Colonic diverticulosis without evidence of diverticulitis. Submucosal fat in the colon and distal small bowel, likely from episodes of inflammation. No evidence of bowel obstruction. The aorta and great vessels are normal in caliber and course without evidence of aneurysmal dilation. Moderate atherosclerotic calcifications of the aorta extending into the bilateral iliac vasculature. No mesenteric, retroperitoneal, pelvic, or inguinal lymphadenopathy. No intraperitoneal free fluid or free air. Small fat-containing umbilical hernia. No suspicious lytic or blastic osseous lesion. IMPRESSION: Interval increase in mediastinal soft tissue thickening along the right mainstem bronchus. It is unclear if this represents recurrent disease versus postradiation changes. Recommend attention on follow-up. Dictated by: Prasanna Alfonso MD The radiology attending physician has personally reviewed this study, and had reviewed and/or edited this written report and agrees with it. Electronically signed by: Lenin Weeks M.D. Zeeshan Rain MD IMG CT PROCEDURES [...] intravenous, Once in imaging, contrast, Starting on 07/25/21 at 1055, For 1 dose Contrast Given 07/25/2021 11:00 AM AGRICULTURE CONSULTANT 121 mL documented in this encounter Orders Medications Ordered That Adam ht Not Have Been Administered Count Last Ordered Date First Ordered Date ioversoL (OPTIRAY 350) syrin ge syringe 125 mL 1 07/25/2021 documented in this encounter Care Teams Manufacturer Representative Relationship Specialty Start Date End Date Paula Robles NP PCP - General 05/31/17 Zeeshan Rain MD Medical Oncologist/Laster Hand Medical Oncology 02/11/18 08/23/22 Addy Mathur MD PhD [address] [place] [address] Radiation Oncologist Radiation Oncology 03/10/18 documented as of this encounter
--- OUTSIDE RECORDS SUMMARY | 2024-08-06 17:34 | XMS_ITS | Encounter Summary ---
Author Organization [facility] Healthcare Address [address] [place] [address] Care Team Providers Care Dermatology Procedural Physician Name Role Phone Philip Robleselle Eleni MUD ANALYSIS WELL LOGGING OPERATOR Primary Care Provider + Zeeshan Rain MD Unavailable [phone] Addy reyna MD PhD Unavailable + [phone] Reason for Referral * MRI/CAT/PET Scan (Routine) - Closed Specialty Diagnoses / Procedures [facility] Referred To Contact Radiology Diagnoses Malignant neoplasm of upper lobe, right bronchus or lung (HCC) Procedures MRI Brain W WO Contrast Zeeshan Rain MD Phone: tel: fax: [address] [address] Referral ID Status Reason Start Date Expiration Date Visits Re quested Visits Authorized [id number] Closed 08/12/2020 09/11/2021 1 1 Reason for Visit * MRI/CAT/PET Scan (Routine) - Closed Specialty Diagnoses / Procedures Referred By Contapril t Referred To Contact Radiology Diagnoses Malignant neoplasm of upper lobe, right bronchus or lung (HCC) Procedures MRI Brain W WO Contrast Zeeshan Rain MD Phone: tel: fax: [facility] [address] [facility] [place] [address] Referral ID Status Reason Start Date Expiration Date Visits Re quested Visits Authorized [id number] Closed 08/12/2020 09/11/2021 1 1 Encounter Details Date Type Department Care Team (Latest Contact Info) Description 01/31/2021 10:30 AM CDT - 01/31/2021 11:59 PM CDT Hospital Encounter [facility] [address] [place] [address] Zeeshan Rain MD [address] [place] [address] Malignant neoplasm of upper lobe, right bronchus or lung (CMS/HCC) Discharge Disposition: Discharge to home or self care Social History Tobacco Use Types Packs/Day Years Used Date Smoking Tobacco: Former Cigarettes Smokeless Tobacco: Never Comments No Sex and Gender Information Value Date Recorded Sex Assigned at Not on file Legal Sex Female 1:02 AM FLOORING INSTALLER Gender Identity Not on file Sexual Orientation [...] Schedule Routine, Read Routine (OP Routine) 01/31/2021 11:47 AM CDT Malignant neoplasm of upper lobe, right bronchus or lung (CMS/HCC) documented in this encounter Results * MRI Brain W WO Contrast (01/31/2021 11:47 AM CDT) Anatomical Region Laterality Modality Head and Neck N/A Magnetic Resonan ce 01/31/2021 1:44 PM CDT Impressions 01/31/2021 1:57 PM CDT Post treatment changes of whole brain radiation therapy without evidence of intracranial metastasis. Dictated by: Linwood Gonzales III, M.D. The radiology attending physician has personally reviewed this study, and had reviewed and/or edited this written report and agrees with it. Electronically signed by: Bhaskar Cortez M.D. Narrative 01/31/2021 1:57 PM CDT EXAMINATION: Magnetic resonance imaging (MRI) of the brain and brainstem without contrast HISTORY: Small cell lung cancer status post prophylactic whole brain radiation completed in 09/24/2017. TECHNIQUE: Multiplanar multi-weighted MRI of the brain and brainstem was performed without intravenous contrast using the general brain protocol. COMPARISON: MRI dated 08/07/2020 FINDINGS: There is diffuse periventricular white matter FLAIR/T2 hyperintensity with associated punctate juxtacortical white matter FLAIR hyperintensities consistent with prior radiation therapy. There are no areas of abnormal postcontrast enhancement. ??Chronic lacunar infarcts are visible within the left caudate nucleus and left lentiform nucleus. The scalp and calvarium are normal. ?? The superior sagittal sinus demonstrates normal venous flow. ??The corpus callosum is normal in shape and signal intensity. ??The posterior fossa is unremarkable. The pituitary and sella are normal. ??The brainstem and craniocervical junction are unremarkable. Diffusion weighted images reveal no hyperintensities to suggest acute cerebral infarction. ??The susceptibility weighted sequences reveal no evidence of acute or chronic hemorrhage. ??The ventricles are normal in size and position without evidence of hydrocephalus . The paranasal sinuses are normal. ??The visualized portions of the mastoids are unremarkable. ??The orbits appear normal. ??Normal flow voids are demonstrated in the carotid arteries and basilar artery. Procedure Note Bhaskar Cortez MD - 01/31/2021 EXAMINATION: Magnetic resonance imaging (MRI) of the brain and brainstem without contrast HISTORY: Small cell lung cancer status post prophylactic whole brain radiation completed in 09/24/2017. TECHNIQUE: Multiplanar multi-weighted MRI of the brain and brainstem was performed without intravenous contrast using the general brain protocol. COMPARISON: MRI dated 08/07/2020 FINDINGS: There is diffuse periventricular white matter FLAIR/T2 hyperintensity with associated punctate juxtacortical white matter FLAIR hyperintensities consistent with prior radiation therapy. There are no areas of abnormal postcontrast enhancement. Chronic lacunar infarcts are visible within the left caudate nucleus and left lentiform nucleus. The scalp and calvarium are normal. The superior sagittal sinus demonstrates normal venous flow. The corpus callosum is normal in shape and signal intensity. The posterior fossa is unremarkable. The pituitary and sella are normal. The brainstem and craniocervical junction are unremarkable. Diffusion weighted images reveal no hyperintensities to suggest acute cerebral infarction. The susceptibility weighted sequences reveal no evidence of acute or chronic hemorrhage. The ventricles are normal in size and position without evidence of hydrocephalus . The paranasal sinuses are normal. The visualized portions of the mastoids are unremarkable. The orbits appear normal. Normal flow voids are demonstrated in the carotid arteries and basilar artery. IMPRESSION: Post treatment changes of whole brain radiation therapy without evidence of intracranial metastasis. Dictated by: Linwood Gonzales III, M.D. The radiology attending physician has personally reviewed this study, and had reviewed and/or edited this written report and agrees with it. Electronically signed by: Bhaskar Cortez M.D. Zeeshan Rain MD IM MRI PROCEDURES Fin al Result documented in this [...] in imaging, contrast, Starting on Wed01/31/21 at 1120, For 1 dose Contrast Given 01/31/2021 11:21 AM CDT 20 mL documented in this encounter Orders Medications Ordered That Adam ht Not Have Been Administered Count Last Ordered Date First Ordered Date gadoterate meglumine (DOTARE M) 0.5 mmol/mL injection 20 mL 1 01/31/2021 documented in this encounter Care Teams Dermatology Procedural Physician Relationship Specialty Start Date End Date Paula Robles NP PCP - General 05/31/17 Zeeshan Rain MD Medical Oncologist/Special Needs Babysitter Medical Oncology 02/11/18 08/23/22 Addy Mathur MD PhD [address] [place] [address] Radiation Oncologist Radiation Oncology 03/10/18 documented as of this encounter
--- OUTSIDE RECORDS SUMMARY | 2024-08-06 17:34 | XMS_ITS | Encounter Summary ---
Author Organization [facility] Healthcare Address [address] [place] [address] Care Team Providers Care Auto Rental Supervisor Name Role Phone Paula Robles Eleni PRODUCT DELIVERY SPECIALIST Primary Care Provider + Zeeshan Rain MD Unavailable [phone] Addy reyna MD PhD Unavailable [phone] Reason for Referral * Diagnostic Imaging (Routine) - Closed Specialty Diagnoses / Procedures Referred By Alan bangura Referred To Contact Radiology Diagnoses Malignant neoplasm of upper lobe, right bronchus or lung (HCC) Procedures MRI Brain W WO Contrast Zeeshan Rain MD Phone: tel: fax: [address] [address] Referral ID Status Reason Start Date Expiration Date Visits Re quested Visits Authorized [id number] Closed 01/26/2022 02/25/2023 1 1 STICAL CARPENTER Reason for Visit * Diagnostic Imaging (Routine) - Closed Specialty Diagnoses / Procedures Referred By Alan bangura Referred To Contact Radiology Diagnoses Malignant neoplasm of upper lobe, right bronchus or lung (HCC) Procedures MRI Brain W WO Contrast Zeeshan Rain MD Phone: tel: fax: [address] [place] [address] Referral ID Status Reason Start Date Expiration Date Visits Re quested Visits Authorized [id number] Closed 01/26/2022 02/25/2023 1 1 Encounter Details Date Type Department Care Team (Latest Contact Info) Description 07/17/2022 8:22 AM ACOUSTICAL CARPENTER - 07/17/2022 11:59 PM ACOUSTICAL CARPENTER Hospital Encounter [address] [address] Malignant neoplasm of upper lobe, right bronchus or lung (HCC) Discharge Disposition: Discharge to home or self care Social History Tobacco Use Types Packs/Day Years Used Date Smoking Tobacco: Former Cigarettes Smokeless Tobacco: Never Comments No Sex and Gender Information Value Date Recorded Sex Assigned at Not on file Legal Sex Female 1:02 AM ACOUSTICAL CARPENTER Gender Identity Not on file Sexual Orientation [...] Schedule Routine, Read Routine (OP Routine) 07/17/2022 9:59 AM ACOUSTICAL CARPENTER Malignant neoplasm of upper lobe, right bronchus or lung (HCC) documented in this encounter Results * MRI Brain W WO Contrast (07/17/2022 9:59 AM ACOUSTICAL CARPENTER) Anatomical Region Laterality Modality Head and Neck N/A Magnetic Resonan ce 07/17/2022 10:2 9 AM ACOUSTICAL CARPENTER Narrative 07/17/2022 11:27 AM ACOUSTICAL CARPENTER EXAM DESCRIPTION: ?? MRI BRAIN W WO CONTRAST REASON FOR STUDY: ?? eval for mets ?? Pt states finished chemo and radiation 2017 for lung cancer, follow up r/o met's. [...] AM T: ??07/17/2022 11:27 AM Report ID: [id number] Reading Location: ??[id number] Procedure Note Phong Hernandez MD - 07/17/2022 [...] Phong Hernandez M.D. AG: JEET Report ID: [id number] Reading Location: [id number] Zeeshan Rain MD IMG MRI PROCEDURES Fin al Result documented in this encounter Visit Diagnoses Diagnosis Malignant neoplasm of upper lobe, right bronchus or lung (HCC) documented in this encounter Administered Medications Inactive Administered Medications - up to 3 most recent administrations Medication Order MAR Action Action Date Dose Rate Site gadoterate meglumine injection 20 mL 20 mL, intravenous, Once in imaging, contrast, Starting on Wed07/17/22 at 0934, For 1 dose Contrast Given 07/17/2022 9:34 AM ACOUSTICAL CARPENTER 20 mL Right Hand documented in this encounter Orders Medications Ordered That Adam ht Not Have Been Administered Count Last Ordered Date First Ordered Date gadoterate meglumine injection 20 mL 1 04/2022 documented in this encounter Care Teams Auto Rental Supervisor Relationship Specialty Start Date End Date Paula Robles NP PCP - General 05/31/17 Zeeshan Rain MD Medical Oncologist/Benefits Assistant Medical Oncology 02/11/18 08/23/22 Addy Mathur MD PhD [address] [place] [address] Radiation Oncologist Radiation Oncology 03/10/18 documented as of this encounter
--- OUTSIDE RECORDS SUMMARY | 2024-08-06 17:34 | XMS_ITS | Encounter Summary ---
Author Organization [facility] Healthcare Address [address] [place] [address] Care Team Providers Care Field Education Director Name Role Phone [place], Paula Eleni HIGH SCHOOL TEACHER Primary Care Provider + Zeeshan Rain MD Unavailable [phone] Addy reyna MD PhD Unavailable + [phone] Reason for Referral * Diagnostic Imaging (Routine) - Closed Specialty Diagnoses / Procedures Referred By Alan bangura Referred To Contact Radiology Diagnoses Malignant neoplasm of upper lobe, right bronchus or lung (HCC) Procedures CT Chest Abdomen Pelvis W Contrast Zeeshan Rain MD Phone: tel: fax: [address] [address] Referral ID Status Reason Start Date Expiration Date Visits Re quested Visits Authorized [id number] Closed 07/28/2021 08/27/2022 1 1 Reason for Visit * Diagnostic Imaging (Routine) - Closed Specialty Diagnoses / Procedures Referred By Alan bangura Referred To Contact Radiology Diagnoses Malignant neoplasm of upper lobe, right bronchus or lung (HCC) Procedures CT Chest Abdomen Pelvis W Contrast Zeeshan Rain MD Phone: tel: fax[facility] [address] [place] [address] Referral ID Status Reason Start Date Expiration Date Visits Re quested Visits Authorized [id number] Closed 07/28/2021 08/27/2022 1 1 Encounter Details Date Type Department Care Team (Latest Contact Info) Description 01/23/2022 9:31 AM CDT - 01/23/2022 11:59 PM CDT Hospital Encounter [facility] [place] [address] Zeeshan Rain MD [address] [place] [address] Malignant neoplasm of upper lobe, right bronchus or lung (HCC) Discharge Disposition: Discharge to home or self care Social History Tobacco Use Types Packs/Day Years Used Date Smoking Tobacco: Former Cigarettes Smokeless Tobacco: Never Comments No Sex and Gender Information Value Date Recorded Sex Assigned at Not on file Legal Sex Female 1:02 AM WORKFORCE INVESTMENT ACT CAREER MANAGER Gender Identity Not on file Sexual [...] CONTRAST Schedule Routine, Read Routine (OP Routine) 01/23/2022 10:15 AM CDT Malignant neoplasm of upper lobe, right bronchus or lung (HCC) POCT CREATININE - DEVICE Routine 01/23/2022 9:53 AM CDT documented in this encounter Results [...] PROCEDURES Sada l Result * POCT creatinine (01/23/2022 9:53 AM CDT) Creatinine POC 0.7 0.6 - 1.1 mg/dL [facility] Blood 01/23/2022 9:53 AM CDT 01/23/2022 9:53 AM CDT Zeeshan Rain MD LAB POCT ORDERABLES - DEVICE Final Result [facility] [place] [address] documented in this encounter Visit Diagnoses Diagnosis Malignant neoplasm of upper lobe, right bronchus or lung (HCC) documented in this encounter Administered Medications Inactive Administered Medications - up to 3 most recent administrations Medication Order MAR Action Action Date Dose Rate Site ioversoL (OPTIRAY 350) syringe syringe 125 mL 125 mL, intravenous, Once in imaging, contrast, Starting on Wed01/23/22 at 1001, For 1 dose Contrast Given 01/23/2022 10:15 AM CDT 120 mL documented in this encounter Orders Medications Ordered That Adam ht Not Have Been Administered Count Last Ordered Date First Ordered Date ioversoL (OPTIRAY 350) syrin ge syringe 125 mL 1 01/23/2022 documented in this encounter Care Teams Field Education Director Relationship Specialty Start Date End Date Paula Robles NP PCP - General 05/31/17 Zeeshan Rain MD Medical Oncologist/Lead Technical Architect Medical Oncology 02/11/18 08/23/22 Addy Mathur MD PhD [address] [place] [address] Radiation Oncologist Radiation Oncology 03/10/18 documented as of this encounter
--- OUTSIDE RECORDS SUMMARY | 2024-08-06 17:34 | XMS_ITS | Encounter Summary ---
Author Organization [facility] Address [address] [place] [address] Care Team Providers Care Communication Engineer Name Role Phone Paula Robles GLOBAL PRESIDENT Primary Care Provider + Zeeshan Rain MD Unavailable [phone] Addy Mathur MD PhD Unavailable + [phone] Encounter Details Date Type Department Care Team (Latest Contact Info) Description 07/20/2022 3:57 PM STEREOTYPER HELPER - 07/20/2022 11:59 PM STEREOTYPER HELPER Hospital Encounter [facility] ([facility]) [address] [place] [phone] Discharge Disposition: Discharge to home or self care Social History Tobacco Use Types Packs/Day Years Used Date Smoking Tobacco: Former Cigarettes Smokeless Tobacco: Never Comments No Sex and Gender Information Value Date Recorded Sex Assigned at Not on file Legal Sex Female 1:02 AM STEREOTYPER HELPER Gender Identity Not on file Sexual Orientation [...] on filedocumented in this encounter Care Teams Communication Engineer Relationship Specialty Start Date End Date Paual Robles NP PCP - General 05/31/17 Zeeshan Rain MD Medical Oncologist/Retail Manager Medical Oncology 02/11/18 08/23/22 Addy Mathur MD PhD [address] [place] [address] Radiation Oncologist Radiation Oncology 03/10/18 documented as of this encounter
--- OUTSIDE RECORDS SUMMARY | 2024-08-06 17:34 | XMS_ITS | Encounter Summary ---
Author Organization [facility] Address [address] [place] [address] Phone Care Team Providers Care Airbrush Painter Name Role Phone Paula Robles Eleni COLEMAN Primary Care Provider + Zeeshan Rain MD Unavailable [phone] Addy Mathur MD PhD Unavailable + [phone] Encounter Details Date Type Department Care Team (Late st Contact Info) Description 01/29/2022 Telephone [facility] Oncology [address] [facility] 7th [place] [address] [place] [address] Alise May CMA Social History Tobacco Use Types Packs/Day Years Used Date Smoking Tobacco: Former Cigarettes Smokeless Tobacco: Never Comments No Sex and Gender Information Value Date Recorded Sex Assigned at Not on file Legal Sex Female 1:02 AM VAMP THROATER Gender Identity Not on file Sexual Orientation Not on file documented as of this encounter Miscellaneous Notes * Telephone Encounter - Alise May CMA - 01/29/2022 9:17 AM CDT Patient is informed of 07/17 CT CAP with at 0900 arriving at 0800 at [facility] [phone] NPO 4 hours prior checking in at 2nd floor of the hospital Diagnostic Services. The MRI will follow at 1000. She decided that she will have lab performed here prior to visit on 07/20 at 1000.She expressed agreement and understanding to information given. ----- Message from Joshua Joyce RN sent at 01/28/2022 3:30 PM CDT ----- Alise, Can you please change the location of her CT scan, brain MRI and labs to 07-17-22 Halmd[facility]ilia at [facility] site? This is very close to her house and will eliminate much stress with coming over here. Please change her cbc and CMP to 07-17-22 as well to the [place] site. Please call Gaby with the new location, times if changed and dates. Please keep her ROV with [id number] as previously scheduled. She is expecting your call. Thanks Enid documented in this encounter Plan of Treatment Not on file documented as of this encounter Visit Diagnoses Not on filedocumented in this encounter Care Teams Airbrush Painter Relationship Specialty Start Date End Date Paula Robles NP PCP - General 05/31/17 Zeeshan Rain MD Medical Oncologist/Benefits Clerk Medical Oncology 02/11/18 08/23/22 Addy Mathur MD PhD [address] [place] [address] Radiation Oncologist Radiation Oncology 03/10/18 documented as of this encounter
--- OUTSIDE RECORDS SUMMARY | 2024-08-06 17:34 | XMS_ITS | Encounter Summary ---
Author Organization [facility] Address [address] [place] [address] Phone Care Team Providers Care Mold Closer Name Role Phone Travis, Paula Knowles NP Primary Care Provider + Zeeshan Rain MD Unavailable [phone] Addy reyna MD PhD Unavailable + [phone] Encounter Details Date Type Department Care Team (Late st Contact Info) Description 02/03/2021 10:00 AM CDT Lab [facility] Oncology [address] [facility] 7th [place] [address] [place] [address] Zeeshan Rain MD [address] [place] [address] Malignant neoplasm of upper lobe, right bronchus or lung (CMS/HCC) Social History Tobacco Use Types Packs/Day Years Used Date Smoking Tobacco: Former Cigarettes Smokeless Tobacco: Never Comments No Sex and Gender Information Value Date Recorded Sex Assigned at Not on file Legal Sex Female 1:02 AM PRINTED FORMS PROOFREADER Gender Identity Not on file Sexual Orientation Not on file documented as of this encounter Plan of Treatment Not on file documented as of this encounter Procedures Procedure Name Priority Date/Time Associated Diagnosis Comments DIFFERENTIAL AUTO Routine 02/03/2021 10: 11 AM CDT Malignant neoplasm of upper lobe, right bronchus or lung (CMS/HCC) CBC WITH AUTO DIFFERENTIAL Routine 02/03/2021 10:11 AM CDT Malignant neoplasm of upper lobe, right bronchus or lung (CMS/HCC) COMPREHENSIVE METABOLIC PANEL STAT 02/03/2021 10:11 AM CDT Malignant neoplasm of upper lobe, right bronchus or lung (CMS/HCC) documented in this encounter Results * Differential, auto (02/03/2021 10:11 AM CDT) Neutrophil abs 2.9 1.8 - 6.6 K/cumm [facility] Comment:Testing performed by : [facility], [address] [place] [phone] Lymphocyte abs 1.8 1.2 - 3.3 K/cumm [facility] Comment:Testing performed by : [facility], [address] [place] [phone] Monocyte abs 0.4 0.2 - 1.2 K/cumm [facility] Comment:Testing performed by : [facility], [address] [place] [phone] Eosinophil abs 0.1 0.0 - 0.5 K/cumm [facility] Comment:Testing performed by : [facility], [address] [place] [phone] Basophil abs 0.1 0.0 - 0.2 K/cumm [facility] Comment:Testing performed by : [address] [phone] Neutrophil pct 53.7 % [facility] Comment: Interpretive Data Percent cell count reference ranges are not reported, since discordance with absolute values may lead to misinterpretation of CBC data. Current Interpretive Data was last revised on 2017. Testing performed by: [facility], [address] [place] [phone] Lymphocyte pct 34.2 % [facility] Comment: Interpretive Data Percent cell count reference ranges are not reported, since discordance with absolute values may lead to misinterpretation of CBC data. Current Interpretive Data was last revised on 2017. Testing performed by: [facility], [address] [place] [phone] Monocyte pct 8.1 % [facility] Comment:Testing performed by : [facility], [address] [place] [phone] Eosinophil pct 2.6 % [facility] Comment:Testing performed by : [facility], [address] [place] [phone] Basophil pct 1.4 % [facility] Comment:Testing performed by : [facility], [address] [place] [phone] Blood specimen (specimen) 02/03/2021 10:11 AM CDT 02/03/2021 10:15 AM CDT us Zeeshan Rain MD LAB BLOOD ORDERABLES F inal Result [facility] Department [place] [address] * CBC with auto differential (02/03/2021 10:11 AM CDT) WBC 5.3 3.8 - 9.8 K/cumm [facility] Comment:Testing performed by : [facility], [address] [place] [phone] Hgb 14.2 12.1 - 15.1 g/dL [facility] Comment:Testing performed by : [facility], [address] [place] [phone] Hct 41.8 36.1 - 44.3 % [facility] Comment:Testing performed by : [address] [address] Plt 213 140 - 440 K/cumm [facility] Comment:Testing performed by : [address] [phone] MPV 7.8 6.8 - 10.4 fL [facility] Comment:Testing performed by : [address] [address] RBC 4.49 3.90 - 5.00 M/cumm [facility] Comment:Testing performed by : [facility], [address] [place] [phone] MCV 93.0 80.0 - 97.6 fL [facility] Comment:Testing performed by : [facility], [address] [place] [address] MCH 31.5 26.7 - 33.7 pg [facility] Comment:Testing performed by : [facility], [address] [place] [address] MCHC 33.9 32.7 - 35.5 g/dL [facility] Comment:Testing performed by : [facility], [address] [place] [address] RDW CV 13.3 11.8 - 14.6 % [facility] Comment:Testing performed by : [facility], [address] [place] [phone] NRBC abs 0.00 0.00 - 0.01 K/cumm [facility] Comment:Testing performed by : [facility], [address] [place] [phone] Blood specimen (specimen) 02/03/2021 10:11 AM CDT 02/03/2021 10:15 AM CDT us Zeeshan Rain MD LAB BLOOD ORDERABLES F inal Result [facility] Department of Laboratories [place], [place] [id number] * (ABNORMAL) Comprehensive metabolic panel (02/03/2021 10:11 AM CDT) Sodium 142 135 - 145 mmol/L [facility] Comment:Testing performed by : [facility], [address] [place] [phone] Potassium, pl 3.7 3.3 - 4.9 mmol/L [facility] Comment:Testing performed by : [address] [phone] Chloride 99 97 - 110 mmol/L [facility] Comment:Testing performed by : [facility], [address] [place] [address] CO2 35(H) 22 - 32 mmol/L [facility] Comment:Testing performed by : [facility], [address] [place] [phone] Anion gap 8 2 - 15 mmol/L [facility] Comment:Testing performed by : [facility], [address] [place] [phone] BUN 13 8 - 25 mg/dL [facility] Comment:Testing performed by : [facility], [address] [place] [address] Creatinine 0.71 0.60 - 1.10 mg/dL [facility] Comment:Testing performed by : [facility], [address] [place] [phone] Glucose 106 70 - 199 mg/dL [facility] Comment: Interpretive Data Fasting glucose >/= [...] was last revised 2017. Testing performed by: [facility], [address] [place] [phone] Calcium 9.4 8.5 - 10.3 mg/dL [facility] Comment:Testing performed by : [facility], [address] [place] [phone] Bilirubin, total 0.7 0.1 - 1.2 mg/dL [facility] Comment:Testing performed by : [address] [address] Protein, pl 7.3 6.5 - 8.5 g/dL [facility] Comment:Testing performed by : [address] [address] Albumin 4.3 3.5 - 5.0 g/dL [facility] Comment:Testing performed by : [facility], [address] [place] [phone] Alk phos 94 40 - 130 Units/L [facility] Comment:Testing performed by : [facility], [address] [place] [phone] ALT 24 7 - 45 Units/L [facility] Comment:Testing performed by : [facility], [address] [place] [phone] AST 19 10 - 45 Units/L [facility] Comment:Testing performed by : [facility], [address] [place] [phone] Blood specimen (specimen) 02/03/2021 10:11 AM CDT 02/03/2021 10:15 AM CDT Zeeshan Rain MD LAB BLOOD ORDERABLES F inal Result [facility] Department [place] [address] documented in this encounter Visit Diagnoses Diagnosis Malignant neoplasm of upper lobe, right bronchus or lung (HCC) documented in this encounter Orders Appointment Requests Count Last Ordered Date Fi rst Ordered Date ONCBCN LAB APPOINTMENT 1 02/03/2021 documented in this encounter Care Teams Mold Closer Relationship Specialty Start Date End Date Paula Robles NP PCP - General 05/31/17 Zeeshan Rain MD Medical Oncologist/Web Development Consultant Medical Oncology 02/11/18 08/23/22 Addy Mathur MD PhD [address] [place] [address] Radiation Oncologist Radiation Oncology 03/10/18 documented as of this encounter
--- OUTSIDE RECORDS SUMMARY | 2024-08-06 17:34 | XMS_ITS | Encounter Summary ---
Author Organization [facility] Healthcare Address [address] [place] [address] Care Team Providers Care Bracelet Former Name Role Phone Paula Robles KELP GATHERER Primary Care Provider + Zeeshan Rain MD Unavailable [phone] Addy reyna MD PhD Unavailable [phone] Reason for Referral * Diagnostic Imaging (Routine) - Closed Specialty Diagnoses / Procedures Referred By Alan bangura Referred To Contact Radiology Diagnoses Malignant neoplasm of upper lobe, right bronchus or lung (HCC) Procedures MRI Brain W WO Contrast Zeeshan Rain MD Phone: tel: fax: [address] [address] Referral ID Status Reason Start Date Expiration Date Visits Re quested Visits Authorized [id number] Closed 02/03/2021 03/05/2022 1 1 TRO PLATER Reason for Visit * Diagnostic Imaging (Routine) - Closed Specialty Diagnoses / Procedures Referred By Alan bangura Referred To Contact Radiology Diagnoses Malignant neoplasm of upper lobe, right bronchus or lung (HCC) Procedures MRI Brain W WO Contrast Zeeshan Rain MD Phone: tel: fax: [place] [address] [facility] [place] [address] Referral ID Status Reason Start Date Expiration Date Visits Re quested Visits Authorized [id number] Closed 02/03/2021 03/05/2022 1 1 Encounter Details Date Type Department Care Team (Latest Contact Info) Description 07/25/2021 9:46 AM ELECTRO PLATER - 07/25/2021 11:59 PM ELECTRO PLATER Hospital Encounter [facility] [address] [place] [address] Zeeshan Rain MD [address] [place] [address] Malignant neoplasm of upper lobe, right bronchus or lung (HCC) Discharge Disposition: Discharge to home or self care Social History Tobacco Use Types Packs/Day Years Used Date Smoking Tobacco: Former Cigarettes Smokeless Tobacco: Never Comments No Sex and Gender Information Value Date Recorded Sex Assigned at Not on file Legal Sex Female 1:02 AM ELECTRO PLATER Gender Identity Not on file Sexual Orientation [...] Schedule Routine, Read Routine (OP Routine) 07/25/2021 12:30 PM ELECTRO PLATER Malignant neoplasm of upper lobe, right bronchus or lung (HCC) POCT CREATININE - DEVICE Routine 07/25/2021 10:44 AM ELECTRO PLATER documented in this encounter Results * MRI Brain W WO Contrast (07/25/2021 12:30 PM ELECTRO PLATER) Anatomical Region Laterality Modality Head and Neck N/A Magnetic Resonan ce 07/25/2021 12:4 0 PM ELECTRO PLATER Impressions 07/25/2021 12:40 PM ELECTRO PLATER No MR evidence of intracranial metastatic disease. Electronically signed by: Sergio Lancaster M.D. Narrative 07/25/2021 12:40 PM ELECTRO PLATER EXAMINATION: Magnetic resonance imaging (MRI) of the brain and brainstem without and with contrast HISTORY: Evaluate for metastatic disease, history of lung cancer TECHNIQUE: Multiplanar multi-weighted MRI of the brain and brainstem was performed without and with intravenous contrast using the general brain protocol. Contrast information: 20 mL Dotarem COMPARISON: Brain MR from 01/31/2021 FINDINGS: Diffuse cerebral volume loss. ??Periventricular FLAIR hyperintensities are nonspecific may represent sequela of chronic small vessel ischemic disease or possibly posttreatment changes. The superior sagittal sinus demonstrates normal venous [...] in size and position without evidence of hydrocephalus. There are no areas of abnormal contrast enhancement. The visualized portions of the orbits, paranasal sinuses, and mastoids appear normal. Normal flow voids are demonstrated in the carotid arteries and basilar artery. Procedure Note Sergio Lancaster MD - 07/25/2021 EXAMINATION: Magnetic resonance imaging (MRI) of the brain and brainstem without and with contrast HISTORY: Evaluate for metastatic disease, history of lung cancer TECHNIQUE: Multiplanar multi-weighted MRI of the brain and brainstem was performed without and with intravenous contrast using the general brain protocol. Contrast information: 20 mL Dotarem COMPARISON: Brain MR from 01/31/2021 FINDINGS: Diffuse cerebral volume loss. Periventricular FLAIR hyperintensities are nonspecific may represent sequela of chronic small vessel ischemic disease or possibly posttreatment changes. The superior sagittal sinus demonstrates normal venous [...] in size and position without evidence of hydrocephalus. There are no areas of abnormal contrast enhancement. The visualized portions of the orbits, paranasal sinuses, and mastoids appear normal. Normal flow voids are demonstrated in the carotid arteries and basilar artery. IMPRESSION: No MR evidence of intracranial metastatic disease. Electronically signed by: Sergio Lancaster M.D. Zeeshan Rain MD IMG MRI PROCEDURES Fin al Result * POCT creatinine (07/25/2021 10:44 AM ELECTRO PLATER) Creatinine POC 0.8 0.6 - 1.1 mg/dL [facility] Blood 07/25/2021 10:4 4 AM ELECTRO PLATER 07/25/2021 10:44 AM ELECTRO PLATER Zeeshan Rain MD LAB POCT ORDERABLES - DEVICE Final Result [facility] Department [place] [address] documented in this encounter Visit Diagnoses Diagnosis Malignant neoplasm of upper lobe, right bronchus or lung (HCC) documented in this encounter Administered Medications Inactive Administered Medications - up to 3 most recent administrations Medication Order MAR Action Action Date Dose Rate Site gadoterate meglumine (DOTAREM) 0.5 mmol/mL injection 22.92 mL 22.92 mL (0.1 mmol/kg ? 114.6 kg), intravenous, Once in imaging, contrast, Starting on Wed07/25/21 at 1155, For 1 dose, Imaging Protocol Orders Contrast Given 07/25/2021 11:55 AM ELECTRO PLATER 20 mL documented in this encounter Orders Medications Ordered That Adam ht Not Have Been Administered Count Last Ordered Date First Ordered Date gadoterate meglumine (DOTARE M) 0.5 mmol/mL injection 22.92 mL 1 07/25/2021 documented in this encounter Care Teams Bracelet Former Relationship Specialty Start Date End Date Paula Robles NP PCP - General 05/31/17 Zeeshan Rain MD Medical Oncologist/Salon Coordinator Medical Oncology 02/11/18 08/23/22 Addy Mathur MD PhD [address] [place] [address] Radiation Oncologist Radiation Oncology 03/10/18 documented as of this encounter
--- OUTSIDE RECORDS SUMMARY | 2024-08-06 17:34 | XMS_ITS | Encounter Summary ---
Author Organization [facility] Address [address] [place] [address] Phone Care Team Providers Care Wood Casket Maker Name Role Phone Travis, Paula Knowles NP Primary Care Provider + Zeeshan Rain MD Unavailable [phone] Addy reyna MD PhD Unavailable + [phone] Encounter Details Date Type Department Care Team (Late st Contact Info) Description 08/12/2020 10:00 AM AIRPLANE COVERER Lab [facility] Oncology [address] [facility] Advanced Medicine 7th [place] [address] [place] [address] Zeeshan Rain MD [address] [place] [address] Malignant neoplasm of upper lobe, right bronchus or lung (CMS/HCC) Social History Tobacco Use Types Packs/Day Years Used Date Smoking Tobacco: Former Cigarettes Smokeless Tobacco: Never Comments No Sex and Gender Information Value Date Recorded Sex Assigned at Not on file Legal Sex Female 1:02 AM AIRPLANE COVERER Gender Identity Not on file Sexual Orientation Not on file documented as of this encounter Plan of Treatment Not on file documented as of this encounter Procedures Procedure Name Priority Date/Time Associated Diagnosis Comments DIFFERENTIAL AUTO Routine 08/12/2020 10: 06 AM AIRPLANE COVERER Malignant neoplasm of upper lobe, right bronchus or lung (CMS/HCC) CBC WITH AUTO DIFFERENTIAL Routine 08/12/2020 10:06 AM AIRPLANE COVERER Malignant neoplasm of upper lobe, right bronchus or lung (CMS/HCC) COMPREHENSIVE METABOLIC PANEL STAT 08/12/2020 10:06 AM AIRPLANE COVERER Malignant neoplasm of upper lobe, right bronchus or lung (CMS/HCC) documented in this encounter Results * Differential, auto (08/12/2020 10:06 AM AIRPLANE COVERER) Neutrophil abs 3.4 1.8 - 6.6 K/cumm [facility] Comment:Testing performed by : [facility], [address] [place] [phone] Lymphocyte abs 2.1 1.2 - 3.3 K/cumm [facility] Comment:Testing performed by : [facility], [address] [place] [phone] Monocyte abs 0.4 0.2 - 1.2 K/cumm [facility] Comment:Testing performed by : [facility], [address] [place] [phone] Eosinophil abs 0.1 0.0 - 0.5 K/cumm [facility] Comment:Testing performed by : [facility], [address] [place] [phone] Basophil abs 0.0 0.0 - 0.2 K/cumm [facility] Comment:Testing performed by : [facility], [address] [place] [phone] Neutrophil pct 55.3 % [facility] Comment: Interpretive Data Percent cell count reference ranges are not reported, since discordance with absolute values may lead to misinterpretation of CBC data. Current Interpretive Data was last revised on 2017. Testing performed by: [facility], [address] [place] [phone] Lymphocyte pct 34.7 % [facility] Comment: Interpretive Data Percent cell count reference ranges are not reported, since discordance with absolute values may lead to misinterpretation of CBC data. Current Interpretive Data was last revised on 2017. Testing performed by: [facility], [address] [place] [phone] Monocyte pct 6.9 % [facility]IO [facility] Comment:Testing performed by : [facility], [address] [place] [phone] Eosinophil pct 2.3 % [facility] Comment:Testing performed by : [facility], [address] [place] [phone] Basophil pct 0.8 % [facility] Comment:Testing performed by : [facility], [address] [place] [phone] Blood specimen (specimen) 08/12/2020 10:06 AM AIRPLANE COVERER 08/12/2020 10:09 AM AIRPLANE COVERER us Zeeshan Rain MD LAB BLOOD ORDERABLES F inal Result ARSENIO BELLA One [facility] [place] [address] * (ABNORMAL) CBC with auto differential (08/12/2020 10:06 AM AIRPLANE COVERER) WBC 6.2 3.8 - 9.8 K/cumm ARSENIO [facility]A Comment:Testing performed by : [facility], [address] [place] [phone] Hgb 15.3(H) 12.1 - 15.1 g/dL [facility]ENIO [facility]A Comment:Testing performed by : [facility], [address] [place] [phone] Hct 45.7(H) 36.1 - 44.3 % A[facility]ENIO BELLA Comment:Testing performed by : [facility], [address] [place] [phone] Plt 216 140 - 440 K/cumm ARSENIO BELLA Comment:Testing performed by : [address] [phone] MPV 7.9 6.8 - 10.4 fL ARSENIO BELLA Comment:Testing performed by : [address] [phone] RBC 4.85 3.90 - 5.00 M/cumm ARSENIO BELLA Comment:Testing performed by : [facility], [address] [place] [phone] MCV 94.3 80.0 - 97.6 fL ARSENIO BELLA Comment:Testing performed by : [facility], [address] [place] [phone] MCH 31.5 26.7 - 33.7 pg ARSENIO BELLA Comment:Testing performed by : [facility], [address] [place] [phone] MCHC 33.5 32.7 - 35.5 g/dL ARSENIO BELLA Comment:Testing performed by : [facility], [address] [place] [phone] RDW CV 13.8 11.8 - 14.6 % ARSENIO BELLA Comment:Testing performed by : [facility], [address] [place] [phone] NRBC abs 0.01 0.00 - 0.01 K/cumm ARSENIO BELLA Comment:Testing performed by : [facility], [address] [place] [phone] Blood specimen (specimen) 08/12/2020 10:06 AM AIRPLANE COVERER 08/12/2020 10:09 AM AIRPLANE COVERER us Zeeshan Rain MD LAB BLOOD ORDERABLES F inal Result ARSENIO BELLA One [facility] Department of Laboratories [place], [place] [id number] * Comprehensive metabolic panel (08/12/2020 10:06 AM AIRPLANE COVERER) Sodium 139 135 - 145 mmol/L ARSENIO BELLA Comment:Testing performed by : [facility], [address] [place] [phone] Potassium, pl 3.3 3.3 - 4.9 mmol/L ARSENIO BELLA Comment:Testing performed by : [address] [phone] Chloride 98 97 - 110 mmol/L ARSENIO BELLA Comment:Testing performed by : [facility], [address] [place] [phone] CO2 32 22 - 32 mmol/L [facility] Comment:Testing performed by : [facility], [address] [place] [phone] Anion gap 10 2 - 15 mmol/L [facility] Comment:Testing performed by : [facility], [address] [place] [phone] BUN 13 8 - 25 mg/dL [facility] Comment:Testing performed by : [facility], [address] [place] [phone] Creatinine 0.67 0.60 - 1.10 mg/dL [facility] Comment:Testing performed by : [facility], [address] [place] [phone] Glucose 117 70 - 199 mg/dL [facility] Comment: [...] was last revised 2017. Testing performed by: [facility], [address] [place] [phone] Calcium 9.5 8.5 - 10.3 mg/dL [facility] Comment:Testing performed by : [facility], [address] [place] [phone] Bilirubin, total 0.8 0.1 - 1.2 mg/dL [facility] Comment:Testing performed by : [facility], [address] [place] [phone] Protein, pl 7.7 6.5 - 8.5 g/dL [facility] Comment:Testing performed by : [facility], [address] [place] [phone] Albumin 4.4 3.5 - 5.0 g/dL [facility] Comment:Testing performed by : [facility], [facility] [phone] Alk phos 97 40 - 130 Units/L ARSENIO BELLA Comment:Testing performed by : [facility], [address] [place] [phone] ALT 21 7 - 45 Units/L ARSENIO BELLA Comment:Testing performed by : [facility], [address] [place] [phone] AST 18 10 - 45 Units/L ARSENIO BELLA Comment:Testing performed by : [facility], [address] [place] [phone] Blood specimen (specimen) 08/12/2020 10:06 AM AIRPLANE COVERER 08/12/2020 10:08 AM AIRPLANE COVERER us Zeeshan Rain MD LAB BLOOD ORDERABLES F inal Result ARSENIO BELLA One [facility] [place] [address] documented in this encounter Visit Diagnoses Diagnosis Malignant neoplasm of upper lobe, right bronchus or lung (HCC) documented in this encounter Orders Appointment Requests Count Last Ordered Date Fi rst Ordered Date ONCBCN LAB APPOINTMENT 1 08/12/2020 documented in this encounter Care Teams Wood Casket Maker Relationship Specialty Start Date End Date Paula Robles NP PCP - General 05/31/17 Zeeshan Rain MD Medical Oncologist/Blasting Helper Medical Oncology 02/11/18 08/23/22 Addy Mathur MD PhD [address] [place] [address] Radiation Oncologist Radiation Oncology 03/10/18 documented as of this encounter
--- OUTSIDE RECORDS SUMMARY | 2024-08-06 17:34 | XMS_ITS | Encounter Summary ---
Author Organization [facility] Address [address] [place] [address] Phone Care Team Providers Care Metal Bonding Worker Name Role Phone Travis Paula Knowles NP Primary Care Provider + Zeeshan Rain MD Unavailable [phone] Addy Mathur MD PhD Unavailable + [phone] Encounter Details Date Type Department Care Team (Late st Contact Info) Description 02/03/2021 Telephone [facility] Gastroenterology [facility] 8th [place] [address] [place] [address] Bettina Drummond Social History Tobacco Use Types Packs/Day Years Used Date Smoking Tobacco: Former Cigarettes Smokeless Tobacco: Never Comments No Sex and Gender Information Value Date Recorded Sex Assigned at Not on file 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 Then we do not need to schedule anything if Oncology has taken care of it. ----- Message ----- From: Bettina Drummond Sent: 02/03/2021 1:07 PM CDT To: Mark Anthony De Dios MD Subject: FW: ultrasound of abdomen Thought you may want to review. She had CT chest/abd/pelvis on 01/31 for Oncology. She is scheduled to see you in March and Oncology has scheduled repeat imaging in July. ----- Message ----- From: Bettina Drummond Sent: 02/01/2021 To: Bettina Drummond Subject: FW: ultrasound of abdomen F/u to review CT scheduled by oncologist on 01.31.2021 ----- Message ----- From: Mark Anthony De Dios MD Sent: 11/14/2020 11:55 AM CDT To: Bettina Drummond Subject: RE: ultrasound of abdomen CT is adequate. Cancel ultrasound. ----- Message ----- From: Bettina Drummond Sent: 11/14/2020 11:45 AM CDT To: Mark Anthony De Dios MD Subject: FW: ultrasound of abdomen She completed a CT chest/abd/pelvis on 08.07.20 and is scheduled to repeat on 01.31.21 for her Oncologist. Does she need US for HCC screen or is it, Ok to follow up to review the imaging arranged by oncology? ----- Message ----- From: Marysol Ferraro RN Sent: 11/07/2020 To: Pablo De Dios/Jairo Cotto Subject: ultrasound of abdomen [facility] patient needs ultrasound of liver in November. HCC screen documented in this encounter Plan of Treatment Not on file documented as of this encounter Visit Diagnoses Not on filedocumented in this encounter Care Teams Metal Bonding Worker Relationship Specialty Start Date End Date Paula Robles NP PCP - General 05/31/17 Zeeshan Rain MD Medical Oncologist/Duplicate Maker Medical Oncology 02/11/18 08/23/22 Addy Mathur MD PhD [address] [place] [address] Radiation Oncologist Radiation Oncology 03/10/18 documented as of this encounter
--- OUTSIDE RECORDS SUMMARY | 2024-08-06 17:34 | XMS_ITS | Encounter Summary ---
Author Organization [facility] Address [address] [place] [address] Phone Care Team Providers Care Buffing And Polishing Wheel Repairer Name Role Phone Travis Paula Knowles NP Primary Care Provider + Zeeshan Rain MD Unavailable [phone] [facility] Unavailable + [phone] Reason for Referral * MRI/CAT/PET Scan (Routine) - Closed Specialty Diagnoses / Procedures Referred By Alan bangura Referred To Contact Radiology Diagnoses Malignant neoplasm of upper lobe, right bronchus or lung (HCC) Procedures MRI Brain W WO Contrast Zeeshan Rain MD Phone: tel: fax: [address] [address] Referral ID Status Reason Start Date Expiration Date Visits Re quested Visits Authorized [id number] Closed 08/12/2020 09/11/2021 1 1 CONSULTANT * Diagnostic Imaging (Routine) - Closed Specialty Diagnoses / Procedures Referred By Alan bangura Referred To Contact Radiology Diagnoses Malignant neoplasm of upper lobe, right bronchus or lung (HCC) Procedures CT Chest Abdomen Pelvis W Contrast Zeeshan Rain MD Phone: tel: fax: [facility] [address] [facility] [place] [address] Referral ID Status Reason Start Date Expiration Date Visits Re quested Visits Authorized [id number] Closed 08/12/2020 09/11/2021 1 1 CONSULTANT Encounter Details Date Type Department Care Team (Late st Contact Info) Description 08/12/2020 10:40 AM AWS CONSULTANT Office Visit [facility] Oncology [address] [facility] [place] Advanced Medicine 7th [place] [address] [place] [address] eZeshan Rain MD [address] [facility] [address] [place] [address] Malignant neoplasm of upper lobe, right bronchus or lung (CMS/HCC) Social History Tobacco Use Types Packs/Day Years Used Date Smoking Tobacco: Former Cigarettes Smokeless Tobacco: Never Comments No Sex and Gender Information Value Date Recorded Sex Assigned at Not on file Legal Sex Female 1:02 AM AWS CONSULTANT Gender Identity Not on file Sexual Orientation Not on file documented as of this encounter Last Filed Vital Signs Vital Sign Reading Time Taken Comments Blood Pressure 161/76 08/12/2020 10:27 AM AWS CONSULTANT Pulse 117 08/12/2020 10:27 AM AWS CONSULTANT Temperature 36.7 ??C (98 ??F) 08/12/2020 10:27 AM AWS CONSULTANT Respiratory Rate 16 08/12/2020 10:27 AM AWS CONSULTANT Oxygen Saturation 94% 08/12/2020 10:27 AM AWS CONSULTANT Inhaled Oxygen Concentration - - Weight 111.1 kg (245 lb) 08/12/2020 10:27 AM AWS CONSULTANT Height - - Body Mass Index 45.42 03/18/2020 10:01 AM CDT documented in this encounter Progress Notes * Mily Reddy DNP - 08/12/2020 10:[address] 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 Tumor specimen demonstrates CD56, synaptophysin, cytokeratin, and TTF positivity. TREATMENT: 1. Concurrent chemoradiation with carboplatin and etoposide with radiation from 06/21/2017 to 08/03/2017, and chemotherapy from 05/28/2017 to 08/05/2017. 2. Prophylactic whole-brain radiation in 10 fractions from 09/13/2017 to 09/24/2017. Interval History: Gaby [place] presents for a 3 month follow-up visit today, accompanied by her Fernandez. Shecontinues to do well without new neurological or systemic symptoms. She reports stable dyspnea on exertion. She reports her appetite and energy are stable. She performs all ADLs without assistance. She denies any fevers, chills, nausea, vomiting, worsening cough, rash or diarrhea. She denies any new complaints. PAST MEDICAL HISTORY: 1. COPD/asthma. 2. History of community-acquired pneumonia. 3. Radiographic findings of pulmonary hypertension on CT scan. SOCIAL HISTORY: She is currently retired. 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 She lives in [place], [place]. She quit smoking in 2008 but [...] Systems: All other systems negative Vitals: BP: 161/76 Temp: 36.7 ??C (98 ??F) Temp src: Oral Pulse: 117 Resp: 16 SpO2: 94 % Weight: 111.1 kg (245 lb) Physical Exam: General: Alert, awake and oriented. Not in acute distress. Ambulatory. Gait is stable. HEENT: sclerae anicteric, no pallor, mucous membranes moist, oropharynx clear Lymphatics: no cervical, axillary or supraclavicular adenopathy Chest: clear to auscultation Left lung, scattered wheezes right lung Heart: regular rate and rhythm. No murmurs. Abdomen: soft, non-tender. No organomegaly Extremities: no edema or erythema Neurologic: Alert, speech normal, no gross motor or sensory deficits noted Psychiatric exam: Appropriate affect Skin: no rashes or bruises ECO Lab Review: CBC: Lab Results Component Value Date/Time WBC 6.2 08/12/2020 10:06 AM HGB 15.3 (H) 08/12/2020 10:06 AM HCT 45.7 (H) 08/12/2020 10:06 AM MCV 94.3 08/12/2020 10:06 AM NEUTROABS 3.4 08/12/2020 10:06 AM CMP: Lab Results Component Value Date/Time SODIUM 139 08/12/2020 10:06 AM POTASSIUM 3.3 08/12/2020 10:06 AM CO2 32 08/12/2020 10:06 AM BUNSER 13 08/12/2020 10:06 AM GLUCOSE 117 08/12/2020 10:06 AM CREATININE 0.67 08/12/2020 10:06 AM CALCIUM 9.5 08/12/2020 10:06 AM CHLORIDE 98 08/12/2020 10:06 AM ALBUMIN 4.4 08/12/2020 10:06 AM AST 18 08/12/2020 10:06 AM ALT 21 08/12/2020 10:06 AM ALKPHOS 97 08/12/2020 10:06 AM BILITOT 0.8 08/12/2020 10:06 AM PROT 7.7 08/12/2020 10:06 AM ANIONGAP 10 08/12/2020 10:06 AM Radiology: Mri Brain W Wo Contrast: 08/07/2020 No evidence of intracranial metastatic disease. Ct Chest Abdomen Pelvis W Contrast: 08/07/2020 Stable post treatment changes in the right lung. No metastatic disease in the chest, abdomen or pelvis. Assessment and Plan: Gaby Morgan is a 70-year-old lady with limited stage small cell lung cancer for which she received concurrent chemoradiation followed by prophylactic cranial irradiation. Dr. Rain and myself reviewed the most recent CT imaging and brain MRI with Ms. Gaby [place] and her husbamd revealing no obvious evidence of progression. We will see her back in 6 months with a restaging CT scan of the C/A/P and a restaging brain MRI. She will call us in the interim for any questions, concerns,or worsening symptoms. She is agreeable with this plan of care. I have discussed with . Gaby [place] that we would recommend her to get the COVID-19 vaccine,especially when taking into account her history of lung cancer and COPD, when the vaccine is available as she has asked for our recommendation. Mily Reddy DNP, [facility] Division of Oncology [facility] [place] CONSULTANT documented in this encounter Plan of Treatment Not on file documented as of this encounter Results * (ABNORMAL) Comprehensive metabolic panel (02/03/2021 10:11 AM CDT) Sodium 142 135 - 145 mmol/L [facility] Comment:Testing performed by : [facility], [address] [place] [phone] Potassium, pl 3.7 3.3 - 4.9 mmol/L [facility] Comment:Testing performed by : [facility], [address] [place] [phone] Chloride 99 97 - 110 mmol/L [facility] Comment:Testing performed by : [facility], [address] [place] [phone] CO2 35(H) 22 - 32 mmol/L [facility] Comment:Testing performed by : [facility], [address] [place] [phone] Anion gap 8 2 - 15 mmol/L [facility] Comment:Testing performed by : [facility], [address] [place] [phone] BUN 13 8 - 25 mg/dL [facility] Comment:Testing performed by : [facility], [address] [place] [phone] Creatinine 0.71 0.60 - 1.10 mg/dL [facility] Comment:Testing performed by : [facility], [address] [place] [phone] Glucose 106 70 - 199 mg/dL [facility] Comment: [...] was last revised 2017. Testing performed by: [facility], [address] [place] [phone] Calcium 9.4 8.5 - 10.3 mg/dL [facility] Comment:Testing performed by : [place] [phone] Bilirubin, total 0.7 0.1 - 1.2 mg/dL [facility] Comment:Testing performed by : [facility], [address] [place] [phone] Protein, pl 7.3 6.5 - 8.5 g/dL [facility] Comment:Testing performed by : [address] [phone] Albumin 4.3 3.5 - 5.0 g/dL [facility] Comment:Testing performed by : [address] [phone] Alk phos 94 40 - 130 Units/L [facility] Comment:Testing performed by : [facility], [address] [place], [place] [phone] ALT 24 7 - 45 Units/L [facility] Comment:Testing performed by : [address] [phone] AST 19 10 - 45 Units/L [facility] Comment:Testing performed by : [address] [phone] Blood specimen (specimen) 02/03/2021 10:11 AM CDT 02/03/2021 10:15 AM CDT us Zeeshan Rain MD LAB BLOOD ORDERABLES F inal Result ARSENIO BELLA One [facility] Department [place] [address] * CBC with auto differential (02/03/2021 10:11 AM CDT) WBC 5.3 3.8 - 9.8 K/cumm ARSENIO BELLA Comment:Testing performed by : [facility], [address] [place] [phone] Hgb 14.2 12.1 - 15.1 g/dL ARSENIO BELLA Comment:Testing performed by : [facility], [address] [place] [phone] Hct 41.8 36.1 - 44.3 % ARSENIO BELLA Comment:Testing performed by : [address] [phone] Plt 213 140 - 440 K/cumm ARSENIO BELLA Comment:Testing performed by : [address] [address] MPV 7.8 6.8 - 10.4 fL ARSENIO BELLA Comment:Testing performed by : [address] [address] RBC 4.49 3.90 - 5.00 M/cumm ARSENIO BELLA Comment:Testing performed by : [address] [phone] MCV 93.0 80.0 - 97.6 fL ARSENIO BELLA Comment:Testing performed by : [address] [phone] MCH 31.5 26.7 - 33.7 pg ARSENIO BELLA Comment:Testing performed by : [address] [phone] MCHC 33.9 32.7 - 35.5 g/dL ARSENIO BELLA Comment:Testing performed by : [address] [phone] RDW CV 13.3 11.8 - 14.6 % ARSENIO BELLA Comment:Testing performed by : [facility], [address] [facility] [phone] NRBC abs 0.00 0.00 - 0.01 K/cumm ARSENIO BELLA Comment:Testing performed by : [facility], [address] [facility] [phone] Blood specimen (specimen) 02/03/2021 10:11 AM CDT 02/03/2021 10:15 AM CDT us Zeeshan Rain MD LAB BLOOD ORDERABLES F inal Result ARSENIO BELLA One [facility] Department [place] [address] * MRI Brain W WO Contrast (01/31/2021 [...] Ordered Date ONCBCN CLINIC APPOINTMENT REQUEST 2 021 08/12/2020 ONCBCN LAB APPOINTMENT 1 02/03/2021 documented in this encounter Care Teams Buffing And Polishing Wheel Repairer Relationship Specialty Start Date End Date Paula Robles NP PCP - General 05/31/17 Zeeshan Rain MD Medical Oncologist/Parent Trainer Medical Oncology 02/11/18 08/23/22 Addy Mathur MD PhD [address] [place] [address] Radiation Oncologist Radiation Oncology 03/10/18 documented as of this encounter
--- OUTSIDE RECORDS SUMMARY | 2024-08-06 17:34 | XMS_ITS | Encounter Summary ---
Author Organization [facility] Address [address] [place] [address] Phone Care Team Providers Care Dag Coater Name Role Phone Paula Robles Eleni COLEMAN Primary Care Provider + Zeeshan Rain MD Unavailable [phone] [facility] Unavailable + [phone] Reason for Visit * Consultation (Routine) - Closed Specialty Diagnoses / Procedures Referred By Alan bangura Referred To Contact Urology Diagnoses Malignant neoplasm of upper lobe, right bronchus or lung (HCC) Zeeshan Rain MD Phone: tel: fax: [facility] (All Locations) Referral ID Status Reason Start Date Expiration Date V isits Requested Visits Authorized [id number] Closed Specialty Services Required 01/26/2022 02/25/2023 99 99 Encounter Details Date Type Department Care Team (Late st Contact Info) Description 03/20/2022 10:00 AM CDT Office Visit [facility] Surgery [address] [facility] [address] [place] [address] Eric Houston MD [address] [facility] [address] [place] [address] Malignant neoplasm of upper lobe, right bronchus or lung (HCC) Social History Tobacco Use Types Packs/Day Years Used Date Smoking Tobacco: Former Cigarettes Smokeless Tobacco: Never Comments No Sex and Gender Information Value Date Recorded Sex Assigned at Not on file 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 female who presents today to discuss right renal lesion. She has a history of small cell cancer of the lung and has received systemic therapy as well as radiation for this. She denies flank pain. No gross hematuria. No difficulty urinating. Allergies as of 03/20/2022 - Reviewed 01/26/2022 Allergen Reaction Noted ??? Rosuvastatin Unknown and Other (See comments) 03/06/2019 Current Outpatient Medications: ??? ADVAIR DISKUS 250-50 mcg/dose diskus inhaler, INL 1 PUFF PO TWICE DAILY. RM AFTER U (Patient not taking: Reported on 02/03/2021), Disp: , Rfl: 5 ??? albuterol HFA (PROVENTIL HFA) 90 mcg/actuation inhaler, every 4 hours., Disp: , Rfl: ??? amoxicillin-clavulanate (AUGMENTIN) 875-125 mg per tablet, TK 1 T PO Q 12 H FOR 10 DAYS (Patient not taking: Reported on 02/03/2021), Disp: , Rfl: 0 ??? azithromycin (ZITHROMAX) 250 mg tablet, , Disp: , Rfl: 0 ??? COMBIVENT RESPIMAT 20-100 mcg/actuation inhaler, INL 1 PUFF PO QID (Patient not taking: No sig reported), Disp: , Rfl: 5 ??? cyanocobalamin (Vitamin B-12) 1,000 mcg tablet, daily (Patient not taking: Reported on 02/03/2021), Disp: , Rfl: ??? fluticasone (FLONASE) 50 mcg/actuation nasal spray, daily., Disp: , Rfl: ??? wcnjvaicfsr-wxnvebqrl-kvfghzoh (TRELEGY ELLIPTA) 100-62.5-25 mcg inhaler, Inhale 1 puff daily, Disp: , Rfl: ??? jdcuuftuimz-gskfvlvsr-eplrkhvy (Trelegy Ellipta) 100-62.5-25 mcg inhaler, Trelegy Ellipta, Disp: , Rfl: ??? furosemide (LASIX) 40 mg tablet, TK 1 T PO QD, Disp: , Rfl: 1 ??? ipratropium-albuterol (DUO-NEB) 0.5-2.5 mg/3 mL nebulizer solution, 4 gm mist. inhal, Disp: , Rfl: ??? loratadine (CLARITIN) 10 mg tablet, TK 1 T PO QAM, Disp: , Rfl: 0 ??? LORazepam (ATIVAN) 0.5 mg tablet, 1 tab po q 6-8 hours prn nausea. Try this medication third (Patient not taking: Reported on 02/03/2021), Disp: , Rfl: ??? metroNIDAZOLE 0.75 % lotion, GRETEL EXT AA QD, Disp: , Rfl: 0 ??? montelukast (SINGULAIR) 10 mg tablet, TK 1 T PO D, Disp: , Rfl: 2 ??? multivitamin tablet, daily. (Patient not taking: Reported on 02/03/2021), Disp: , Rfl: ??? ondansetron (ZOFRAN) 8 mg tablet, TAKE 1 TABLET EVERY 8 HOURS PRN nausea,try this medication FIRST (Patient not taking: Reported on 02/03/2021), Disp: , Rfl: ??? oxyCODONE-acetaminophen (PERCOCET) 5-325 mg per tablet, oxycodone- acetaminophen 5 mg-325 mg tablet (Patient not taking: Reported on 02/03/2021), Disp: , Rfl: ??? potassium chloride ER (potassium chloride ER) 20 mEq CR tablet, Take 1 tablet (20 mEq total) bymouth 2 (two) times a day, Disp: 60 tablet, Rfl: 3 ??? predniSONE (DELTASONE) 10 mg tablet pack, prednisone 10 mg tablets in a dose pack Take by oral route. day 1: 60 mg, day2: 50mg, day3:40mg, day4: 30mg, day5:20mg, day6:10 then finished (Patient not taking: Reported on 02/03/2021), Disp: , Rfl: ??? predniSONE (DELTASONE) 20 mg tablet, TK 1 T PO BID FOR 7 DAYS (Patient not taking: Reported on 02/03/2021), Disp: , Rfl: 0 ??? prochlorperazine (COMPAZINE) 10 mg tablet, 1 tab po q 6-8 hrs prn nausea. Try this medication second (Patient not taking: Reported on 02/03/2021), Disp: , Rfl: ??? simvastatin (ZOCOR) 20 mg tablet, TK 1 T PO HS, Disp: , Rfl: 0 ??? traMADoL (ULTRAM) 50 mg tablet, tramadol 50 mg tablet TAKE 1 TABLET BY MOUTH TWICE DAILY NEEDED FOR KNEE PAIN, Disp: , Rfl: No past medical history on file. Past Surgical History: Procedure Laterality Date ??? SECTION x2 Family History Problem Relation Age of Onset ??? Alzheimer's disease Mother ??? No Known Problems Father ??? Cirrhosis Sister Alcohol ??? No Known Problems Brother Social History Tobacco Use ??? Smoking status: Former Smoker Types: Cigarettes ??? Smokeless tobacco: Never Used Substance and Sexual Activity ??? Drug use: Not on file ??? Sexual activity: Not on file Alcohol Use: Not on file Physical Exam: There were no vitals taken for this visit. Constitutional: no acute distress Skin/Integumentary: no bruising or rashes on face or hands Eyes: Extraocular muscles intact, mucous membranes moist Ears, Nose, Mouth/Throat: neck normal range of motion and trachea midline Respiratory: Good respiratory effort, breathing symmetric Gastrointestinal: Soft, non-tender, non-distended, no masses Back: no CVA Tenderness, no spinal tenderness Psychiatric: Mood and affect appropriate, alert and oriented Neurologic: Normal gait, speech clear. Lab/Radiology/Diagnostic Review: I have personally reviewed and independently examined the images referred to here. Study Result Narrative & Impression EXAMINATION: Computed tomography of the chest, abdomen and pelvis with intravenous contrast ?? HISTORY: 71-year-old woman with history of right upper lobe cancer status post radiation completed in July 2017. ?? TECHNIQUE: Transaxial computed tomographic images of the chest, abdomen and pelvis were obtained with intravenous contrast according to the standard protocol after the uneventful administration of 120 mL Opti-Ray 350 intravenous contrast. ?? COMPARISON: PET/CT dated 08/11/[address] dated 07/25/2021. CT chest abdomen and pelvis dated 07/09/2017. ?? FINDINGS: Chest: The thyroid gland is normal. No supraclavicular, axillary, or mediastinal lymphadenopathy. The heart is normal in size. No pericardial effusion. There is no significant calcific atherosclerotic involvement of the coronary arteries. There is calcific atherosclerosis of the aortic arch. ?? Paramediastinal architectural distortion is redemonstrated within the right upper lung, with unchanged volume loss from 07/25/2021. No new nodularity is identified to suggest residual or recurrent disease. Subpleural reticulation, particularly at the lung bases is new, with scattered tree-in-bud nodularity throughout both lung bases, left greater than right, possibly relating to aspiration. No pneumonic pulmonary consolidation, pleural effusion, or pneumothorax. ?? Abdomen/Pelvis: No focal hepatic lesion is identified. [...] There is a large paraumbilical fat-containing hernia. ?? The stomach, small bowel, and colon are normal in course and caliber without focal wall thickening or evidence of obstruction. The appendix is normal. There is mild sigmoid diverticulosis without findings of diverticulitis. No free intraperitoneal fluid or gas. No abdominopelvic lymphadenopathy. There is moderate calcific atherosclerotic involvement of the abdominal aorta and iliac arteries. Abdominal vasculature is grossly patent. ?? Bone windows demonstrate no suspicious osseous lesions. ?? IMPRESSION: 1. Stable posttreatment changes within the paramediastinal right upper lung, without convincing evidence of disease progression. ?? 2. There are new scattered tree-in-bud nodules throughout the bilateral lung bases, which is likely infectious or inflammatory, possibly relating to aspiration. Recommend close attention on follow-up imaging in 3 months to document resolution, as metastatic disease cannot be entirely excluded. ?? 3. No acute abnormality is identified within the abdomen or pelvis. There is a 1.2 cm hypodense lesion along the medial aspect of the right kidney, which is stable from at least July 2017, almost certainly benign, however a solid renal neoplasm not entirely excluded. Close attention on follow-up imaging is recommended. ?? Electronically signed by: Shawn Dior M.D. Assessment/Plan: Gaby Morgan is a 71 y.o. female with a 1.2 cm hypodense lesion at the medial aspect of the right kidney. This has been present since 2017 as remained stable in size. This is very unlikely to represent a malignancy. Either way, we would likely continue to observe this lesion. She will be getting further imaging as part of her cancer surveillance and so we will continue to follow this. She canbe referred back if this does show any concerning signs. Otherwise, I would not plan any intervention for this lesion as it is likely benign. Eric Houston MD documented in this encounter Plan of Treatment Not on file documented as of this encounter Visit Diagnoses Diagnosis Malignant neoplasm of upper lobe, right bronchus or lung (HCC) documented in this encounter Orders Outpatient Referral Count Last Ordered Date Fir st Ordered Date AMB REFERRAL TO UROLOGY 1 03/20/2022 documented in this encounter Care Teams Dag Coater Relationship Specialty Start Date End Date Paula Robles NP PCP - General 05/31/17 Zeeshan Rain MD Medical Oncologist/Exceptional Student Education Aide Medical Oncology 02/11/18 08/23/22 Addy Mathur MD PhD [address] [id number] Radiation Oncologist Radiation Oncology 03/10/18 documented as of this encounter
--- OUTSIDE RECORDS SUMMARY | 2024-08-06 17:34 | XMS_ITS | Encounter Summary ---
Author Organization [facility] Address [address] [place] [address] Phone Care Team Providers Care Box Toe Buffer Name Role Phone Travis Paula Knowles NP Primary Care Provider + Zeeshan Rain MD Unavailable [phone] Addy Mathur MD PhD Unavailable + [phone] Encounter Details Date Type Department Care Team (Late st Contact Info) Description 11/15/2020 Telephone [facility] Gastroenterology [facility] 8th [address] [address] Bettina Drummond Social History Tobacco Use Types Packs/Day Years Used Date Smoking Tobacco: Former Cigarettes Smokeless Tobacco: Never Comments No Sex and Gender Information Value Date Recorded Sex Assigned at Not on file Legal Sex 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 [...] by oncology? ----- Message ----- From: Marysol Ferraro, AYDEE Sent: 11/07/2020 To: Pablo De Dios/Jairo Cotto Subject: ultrasound of abdomen [facility] [place] patient needs ultrasound of liver in November. HCC screen documented in this encounter Plan of Treatment Not on file documented as of this encounter Visit Diagnoses Not on filedocumented in this encounter Care Teams Box Toe Buffer Relationship Specialty Start Date End Date Paula Robles NP PCP - General 05/31/17 Zeeshan Rain MD Medical Oncologist/Truss Puller Helper Medical Oncology 02/11/18 08/23/22 Addy Mathur MD PhD [address] [place] [address] Radiation Oncologist Radiation Oncology 03/10/18 documented as of this encounter
--- OUTSIDE RECORDS SUMMARY | 2024-08-06 17:34 | XMS_ITS | Encounter Summary ---
Author Organization [facility] Address [address] [place] [address] Phone Care Team Providers Care Electric Motor Repairing Supervisor Name Role Phone Travis Paula Knowles NP Primary Care Provider + Zeeshan Rain MD Unavailable [phone] [facility] Unavailable + [phone] Reason for Referral * Diagnostic Imaging (Routine) - Closed Specialty Diagnoses / Procedures Referred By Alan bangura Referred To Contact Radiology Diagnoses Malignant neoplasm of upper lobe, right bronchus or lung (HCC) Procedures MRI Brain W WO Contrast Zeeshan Rain MD Phone: tel: fax: [address] [address] Referral ID Status Reason Start Date Expiration Date Visits Re quested Visits Authorized [id number] Closed 02/03/2021 03/05/2022 1 1 * Diagnostic Imaging (Routine) - Closed Specialty Diagnoses / Procedures Referred By Alan bangura Referred To Contact Radiology Diagnoses Malignant neoplasm of upper lobe, right bronchus or lung (HCC) Procedures CT Chest Abdomen Pelvis W Contrast Zeeshan Rain MD Phone: tel: fax: [facility] [address] [facility] [place] [address] Referral ID Status Reason Start Date Expiration Date Visits Re quested Visits Authorized [id number] Closed 02/03/2021 03/05/2022 1 1 Encounter Details Date Type Department Care Team (Late st Contact Info) Description 02/03/2021 10:40 AM CDT Office Visit [facility] Oncology [address] [facility] 7th [place] [address] [place] [address] Zeeshan Rain MD [address] [place] [address] Malignant neoplasm of upper lobe, right bronchus or lung (CMS/HCC) (Primary Dx) Social History Tobacco Use Types Packs/Day Years Used Date Smoking Tobacco: Former Cigarettes Smokeless Tobacco: Never Comments No Sex and Gender Information Value Date Recorded Sex Assigned at Not on file Legal Sex Female 1:02 AM HOT SAW OPERATOR Gender Identity Not on file Sexual Orientation Not on file documented as of this encounter Last Filed Vital Signs Vital Sign Reading Time Taken Comments Blood Pressure 136/81 02/03/2021 10:38 AM CDT Pulse 94 02/03/2021 10:38 AM CDT Temperature 36.6 ??C (97.8 ??F) 02/03/2021 1 0:38 AM CDT Respiratory Rate 18 02/03/2021 10:3 8 AM CDT Oxygen Saturation 94% 02/03/2021 10: 38 AM CDT Inhaled Oxygen Concentration - - Weight 114.6 kg (252 lb 9.6 oz) 021 10:38 AM CDT Height - - Body Mass Index 46.83 03/18/2020 10:01 AM CDT documented in this encounter Progress Notes * Mily Reddy DNP - 02/03/2021 10:40 AM CDT [facility] DEPARTMENT OF MEDICINE - MEDICAL ONCOLOGY [address] [place] [phone] PHONE: FAX: Medical Oncology Follow-up Note Oncology History Overview Note DIAGNOSIS: 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 She reports her appetite and energy are stable. She performs all ADLs without assistance. She denies any fevers, chills, nausea, vomiting, worsening cough, rash or diarrhea. She denies any new complaints. PAST MEDICAL HISTORY: 1. COPD/asthma. 2. History of community-acquired pneumonia. 3. Radiographic findings of pulmonary hypertension on CT scan. SOCIAL HISTORY: She is currently retired. 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 She lives in [place], [place]. She quit smoking in 2008 but [...] Systems: All other systems negative Vitals: BP: 136/81 Temp: 36.6 ??C (97.8 ??F) Temp src: Transdermal Pulse: 94 Resp: 18 SpO2: 94 % Weight: 114.6 kg (252 lb 9.6 oz) Physical Exam: General: Alert, [...] CBC: Lab Results Component Value Date/Time WBC 5.3 02/03/2021 10:11 AM HGB 14.2 02/03/2021 10:11 AM HCT 41.8 02/03/2021 10:11 AM MCV 93.0 02/03/2021 10:11 AM NEUTROABS 2.9 02/03/2021 10:11 AM CMP: Lab Results Component Value Date/Time SODIUM 142 02/03/2021 10:11 AM POTASSIUM 3.7 02/03/2021 10:11 AM CO2 35 (H) 02/03/2021 10:11 AM BUNSER 13 02/03/2021 10:11 AM GLUCOSE 106 02/03/2021 10:11 AM CREATININE 0.71 02/03/2021 10:11 AM CALCIUM 9.4 02/03/2021 10:11 AM CHLORIDE 99 02/03/2021 10:11 AM ALBUMIN 4.3 02/03/2021 10:11 AM AST 19 02/03/2021 10:11 AM ALT 24 02/03/2021 10:11 AM ALKPHOS 94 02/03/2021 10:11 AM BILITOT 0.7 02/03/2021 10:11 AM PROT 7.3 02/03/2021 10:11 AM ANIONGAP 8 02/03/2021 10:11 AM Radiology: MRI Brain W WO Contrast: 01/31/2021 Post treatment changes of whole brain radiation therapy without evidence of intracranial metastasis. CT Chest Abdomen Pelvis W Contrast: 01/31/2021 Stable posttreatment changes in the right lung. No CT evidence of metastatic disease in the chest, abdomen, or pelvis. Assessment and Plan: Gaby Morgan [...] the C/A/P and a restaging brain MRI. If that is stable, we will likely pursue with another [address] After that, we will likely pursue one more [address]/MRI and then go to yearly follow up. Coty call us in the interim for any questions, concerns, or worsening symptoms. She is agreeable wit h this plan of care. We discussed that weight loss may improve her dyspnea on exertion, which she reports is stable overall. She states understanding of the importance of eating a healthy diet and remaining active. Mily Reddy DNP, MEMS PROCESS ENGINEER-[facility] Division of Oncology [facility] in [place] documented in this encounter Plan of Treatment Not on file documented as of this encounter Results * (ABNORMAL) Comprehensive metabolic panel (07/28/2021 10:09 AM HOT SAW OPERATOR) Sodium 139 135 - 145 mmol/L [facility] Comment:Testing performed by : [facility], [address] [place] [phone] Potassium, pl 3.4 3.3 - 4.9 mmol/L [facility] Comment:Testing performed by : [facility], [address] [place] [phone] Chloride 96(L) 97 - 110 mmol/L [facility] Comment:Testing performed by : [facility], [address] [place] [phone] CO2 35(H) 22 - 32 mmol/L [facility] Comment:Testing performed by : [facility], [address] [place] [phone] Anion gap 8 2 - 15 mmol/L [facility] Comment:Testing performed by : [facility], [address] [place] [phone] BUN 12 8 - 25 mg/dL [facility] Comment:Testing performed by : [facility], [address] [place] [phone] Creatinine 0.68 0.60 - 1.10 mg/dL [facility] Comment:Testing performed by : [address] [address] Glucose 115 70 - 199 mg/dL [facility] [...] was last revised 2017. Testing performed by: [address] [address] Calcium 10.0 8.5 - 10.3 mg/dL [facility] Comment:Testing performed by : [address] [address] Bilirubin, total 0.6 0.1 - 1.2 mg/dL [facility] Comment:Testing performed by : [address] [address] Protein, pl 7.6 6.5 - 8.5 g/dL [facility] Comment:Testing performed by : [address] [address] Albumin 4.3 3.5 - 5.0 g/dL [facility] Comment:Testing performed by : [address] [address] Alk phos 92 40 - 130 Units/L [facility] Comment:Testing performed by : [address] [address] ALT 27 7 - 45 Units/L [facility] Comment:Testing performed by : [address] [address] AST 22 10 - 45 Units/L [facility] Comment:Testing performed by : [facility], [address] [place] [phone] Blood 07/28/2021 10:0 9 AM HOT SAW OPERATOR 07/28/2021 10:10 AM HOT SAW OPERATOR Zeeshan Rain MD LAB BLOOD ORDERABLES F inal Result [facility] [place] [address] * (ABNORMAL) CBC with auto differential (07/28/2021 10:09 AM HOT SAW OPERATOR) WBC 5.5 3.8 - 9.8 K/cumm [facility] Comment:Testing performed by : [facility], [address] [place] [phone] Hgb 15.3(H) 12.1 - 15.1 g/dL [facility] Comment:Testing performed by : [facility], [address] [place] [phone] Hct 44.7(H) 36.1 - 44.3 % [facility] Comment:Testing performed by : [address] [address] Plt 220 140 - 440 K/cumm [facility] Comment:Testing performed by : [address] [address] MPV 7.9 6.8 - 10.4 fL [facility] Comment:Testing performed by : [facility], [address] [place] [phone] RBC 4.82 3.90 - 5.00 M/cumm [facility] Comment:Testing performed by : [address] [address] MCV 92.8 80.0 - 97.6 fL [facility] Comment:Testing performed by : [address] [address] MCH 31.7 26.7 - 33.7 pg [facility] Comment:Testing performed by : [facility], [address] [facility] [address] MCHC 34.2 32.7 - 35.5 g/dL [facility] Comment:Testing performed by : [facility], [address] [place] [phone] RDW CV 13.4 11.8 - 14.6 % [facility] Comment:Testing performed by : [facility], [address] [place] [phone] NRBC abs 0.00 0.00 - 0.01 K/cumm [facility] Comment:Testing performed by : [facility], [address] [place] [phone] Blood 07/28/2021 10:0 9 AM HOT SAW OPERATOR 07/28/2021 10:10 AM HOT SAW OPERATOR us Zeeshan Rain MD LAB BLOOD ORDERABLES F inal Result Performing Organization Address City/State/[facility] Co de Phone Number [facility] [place] [address] * MRI Brain W WO Contrast (07/25/2021 12:30 PM HOT SAW OPERATOR) Anatomical Region Laterality Modality Head and Neck N/A Magnetic Resonan ce 07/25/2021 12:4 0 PM HOT SAW OPERATOR Impressions 07/25/2021 12:40 PM HOT SAW OPERATOR No MR evidence of intracranial metastatic disease. Electronically signed by: Sergio Lancaster M.D. Narrative 07/25/2021 12:40 PM HOT SAW OPERATOR EXAMINATION: Magnetic resonance imaging (MRI) of [...] Abdomen Pelvis W Contrast (07/25/2021 11:11 AM HOT SAW OPERATOR) Anatomical Region Laterality Modality Body N/A Computed Tomogra phy 07/25/2021 11:5 3 AM HOT SAW OPERATOR Impressions 07/25/2021 12:01 PM HOT SAW OPERATOR Interval increase in mediastinal soft tissue thickening along the right mainstem bronchus. It is unclear if this represents recurrent disease versus postradiation changes. Recommend attention on follow-up. Dictated by: Prasanna Alfonso MD The radiology attending physician has personally reviewed this study, and had reviewed and/or edited this written report and agrees with it. Electronically signed by: Lenin Weeks M.D. Narrative 07/25/2021 12:01 PM HOT SAW OPERATOR EXAMINATION: ??Computed tomography of the chest, abdomen [...] Date [facility]N CLINIC APPOINTMENT REQUEST 2 021 02/03/2021 [facility] LAB APPOINTMENT 1 07/28/2021 documented in this encounter Care Teams Electric Motor Repairing Supervisor Relationship Specialty Start Date End Date Paula Robles NP PCP - General 05/31/17 Zeeshan Rain MD Medical Oncologist/Remote Sensing Engineer Medical Oncology 02/11/18 08/23/22 Addy Mathur MD PhD [address] [place] [address] Radiation Oncologist Radiation Oncology 03/10/18 documented as of this encounter
--- OUTSIDE RECORDS SUMMARY | 2024-08-06 17:34 | XMS_ITS | Encounter Summary ---
Author Organization [facility] Address [address] [place] [address] Phone Care Team Providers Care Orchestra Director Name Role Phone Paula Robles ROCKET ENGINE TESTER Primary Care Provider + Zeeshan Rain MD Unavailable [phone] Addy Mathur MD PhD Unavailable + [phone] Encounter Details Date Type Department Care Team (Late st Contact Info) Description 01/26/2022 10:00 AM CDT Lab [facility] Oncology [address] 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 Gender Identity Not on file Sexual Orientation Not on file documented as of this encounter Plan of Treatment Not on file documented as of this encounter Visit Diagnoses Diagnosis Malignant neoplasm of upper lobe, right bronchus or lung (HCC) documented in this encounter Orders Appointment Requests Count Last Ordered Date Fi rst Ordered Date ONCBCN LAB APPOINTMENT 1 01/26/2022 documented in this encounter Care Teams Orchestra Director Relationship Specialty Start Date End Date Paula Robles NP PCP - General 05/31/17 Zeeshan Rain MD Medical Oncologist/Offset Second Press Operator Medical Oncology 02/11/18 08/23/22 Addy Mathur MD PhD [address] [place] [address] Radiation Oncologist Radiation Oncology 03/10/18 documented as of this encounter
--- OUTSIDE RECORDS SUMMARY | 2024-08-06 17:35 | XMS_ITS | Encounter Summary ---
Author Organization [facility] Address [address] [place] [address] Phone Care Team Providers Care Analog Ic Design Engineer Name Role Phone Travis, Paula Eleni COLEMAN Primary Care Provider + Zeeshan Rain MD Unavailable [phone] [facility] Unavailable + [phone] Reason for Referral * Diagnostic Imaging (Routine) - Closed Specialty Diagnoses / Procedures Referred By Alan t Referred To Contact Diagnoses Malignant neoplasm of right lung, unspecified part of lung (HCC) Procedures [place] Modified Barium Swallow W Video Zeeshan Rain MD Phone: tel: fax: [address] [address] Referral ID Status Reason Start Date Expiration Date Visits Re quested Visits Authorized [id number] Closed 12/20/2018 06/30/2020 1 1 Encounter Details Date Type Department Care Team (Late st Contact Info) Description 12/20/2018 Orders Only [facility] Oncology [address] 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 The swallowing mechanism is normal. Please refer to the speech pathology report for dietary recommendations. Dictated by: Jacky Wong M.D. The radiology attending physician has personally reviewed this study, and had reviewed and/or edited this written report and agrees with it. Electronically signed by: Joycelyn Dennis M.D. Narrative 01/11/2019 11:17 AM CDT EXAMINATION: MODIFIED BARIUM SWALLOW HISTORY: Dysphagia. TECHNIQUE: In conjunction with the speech pathology service, the patient was given barium of multiple different consistencies to swallow. Video fluoroscopy was employed during the exam. FINDINGS: Oral Phase: The oral stage of swallowing is normal.. Pharyngeal Phase: The swallowing response is initiated at the level of the vallecula and is normal. There is no base of tongue weakness. There is trace vallecular residue. Hyo-laryngeal elevation is normal. Hyo-laryngeal excursion is normal. Epiglottic inversion is normal. There is no pharyngeal weakness. Upper esophageal sphincter opening is normal. Pyriform sinus residue is trace and is within functional limits. Penetration: There is no penetration. Aspiration: There is no aspiration. Procedure Note Joycelyn Dennis MD - 01/11/2019 EXAMINATION: MODIFIED BARIUM SWALLOW HISTORY: Dysphagia. TECHNIQUE: In conjunction with the speech pathology service, the patient was given barium of multiple different consistencies to swallow. Video fluoroscopy was employed during the exam. FINDINGS: Oral Phase: The oral stage of swallowing is normal.. Pharyngeal Phase: The swallowing response is initiated at the level of the vallecula and is normal. There is no base of tongue weakness. There is trace vallecular residue. Hyo-laryngeal elevation is normal. Hyo-laryngeal excursion is normal. Epiglottic inversion is normal. There is no pharyngeal weakness. Upper esophageal sphincter opening is normal. Pyriform sinus residue is trace and is within functional limits. Penetration: There is no penetration. Aspiration: There is no aspiration. IMPRESSION: 1. The swallowing mechanism is normal. Please refer to the speech pathology report for dietary recommendations. Dictated by: Jacky Wong M.D. The radiology attending physician has personally reviewed this study, and had reviewed and/or edited this written report and agrees with it. Electronically signed by: Joycelyn Dennis M.D. Zeeshan Rain MD IMG FLUOROSCOPY PROCED URES Final Result documented in this encounter Visit Diagnoses Diagnosis Malignant neoplasm of right lung, unspecified part of lung (HCC)- Primary Malignant neoplasm of right lung, unspecified part of lung (HCC) documented in this encounter Care Teams Analog Ic Design Engineer Relationship Specialty Start Date End Date Paula Robles NP PCP - General 05/31/17 Zeeshan Rain MD Medical Oncologist/Geophysical Party Chief Medical Oncology 02/11/18 08/23/22 Addy Mathur MD PhD [address] [place] [address] Radiation Oncologist Radiation Oncology 03/10/18 documented as of this encounter
--- OUTSIDE RECORDS SUMMARY | 2024-08-06 17:35 | XMS_ITS | Encounter Summary ---
Author Organization [facility] Address [address] [place] [address] Phone Care Team Providers Care Riveting Machine Operator Tape Control Name Role Phone Travis Paula Knowles NP Primary Care Provider + Zeeshan Rain MD Unavailable [phone] Addy Mathur MD PhD Unavailable [phone] Encounter Details Date Type Department Care Team (Late st Contact Info) Description 06/26/2019 10:15 AM FLOORING MACHINE OPERATOR Lab [facility] Oncology [facility] 7th [place] [address] [place] [address] Malignant neoplasm of upper lobe, right bronchus or lung (CMS/HCC) Social History Tobacco Use Types Packs/Day Years Used Date Smoking Tobacco: Former Cigarettes Smokeless Tobacco: Never Comments No Sex and Gender Information Value Date Recorded Sex Assigned at Not on file Legal Sex Female 1:02 AM FLOORING MACHINE OPERATOR Gender Identity Not on file Sexual Orientation Not on file documented as of this encounter Plan of Treatment Not on file documented as of this encounter Procedures Procedure Name Priority Date/Time Associated Diagnosis Comments COMPREHENSIVE METABOLIC PANEL STAT 06/26/2019 10:27 AM FLOORING MACHINE OPERATOR Malignant neoplasm of upper lobe, right bronchus or lung (CMS/HCC) DIFFERENTIAL AUTO Routine 06/26/2019 10: 20 AM FLOORING MACHINE OPERATOR Malignant neoplasm of upper lobe, right bronchus or lung (CMS/HCC) CBC WITH AUTO DIFFERENTIAL Routine 06/26/2019 10:20 AM FLOORING MACHINE OPERATOR Malignant neoplasm of upper lobe, right bronchus or lung (CMS/HCC) documented in this encounter Results * Comprehensive metabolic panel (06/26/2019 10:27 AM FLOORING MACHINE OPERATOR) Sodium 141 135 - 145 mmol/L [facility] Potassium, pl 3.5 3.3 - 4.9 mmol/L [facility] Chloride 100 97 - 110 mmol/L [facility] CO2 32 22 - 32 mmol/L [facility] Anion gap 9 2 - 15 mmol/L [facility] BUN 12 8 - 25 mg/dL [facility] Creatinine 0.67 0.60 - 1.10 mg/dL [facility] Glucose 116 70 - 199 mg/dL [facility] Comment: Interpretive Data Fasting glucose >/= [...] Current interpretive data was last revised 2017. Calcium 9.4 8.5 - 10.3 mg/dL [facility] Bilirubin, total 0.4 0.1 - 1.2 mg/dL [facility] Protein, pl 7.0 6.5 - 8.5 g/dL [facility] Albumin 4.1 3.5 - 5.0 g/dL [facility] Alk phos 92 40 - 130 Units/L [facility] ALT 24 7 - 45 Units/L [facility] AST 22 10 - 45 Units/L [facility] Blood specimen (specimen) 06/26/2019 10:27 AM FLOORING MACHINE OPERATOR 06/26/2019 10:33 AM FLOORING MACHINE OPERATOR us Zeeshan Rain MD LAB BLOOD ORDERABLES F inal Result [facility] Department [place] [address] * Differential, auto (06/26/2019 10:20 AM FLOORING MACHINE OPERATOR) Neutrophil abs 2.7 1.8 - 6.6 K/cumm [facility] Comment:Testing performed by : [facility], [address] [place] [phone] Lymphocyte abs 1.3 1.2 - 3.3 K/cumm [facility] Comment:Testing performed by : [facility], [address] [place] [phone] Monocyte abs 0.4 0.2 - 1.2 K/cumm [facility] Comment:Testing performed by : [facility], [address] [place] [phone] Eosinophil abs 0.1 0.0 - 0.5 K/cumm [facility] Comment:Testing performed by : [facility], [address] [place] [phone] Basophil abs 0.1 0.0 - 0.2 K/cumm [facility] Comment:Testing performed by : [facility], [address] [place] [phone] Neutrophil pct 59.1 % [facility] Comment: Interpretive Data Percent cell count reference ranges are not reported, since discordance with absolute values may lead to misinterpretation of CBC data. Current Interpretive Data was last revised on 2017. Testing performed by: [facility], [address] [place] [phone] Lymphocyte pct 29.3 % [facility] Comment: Interpretive Data Percent cell count reference ranges are not reported, since discordance with absolute values may lead to misinterpretation of CBC data. Current Interpretive Data was last revised on 2017. Testing performed by: [facility], [address] [place] [phone] Monocyte pct 8.2 % [facility] Comment:Testing performed by : [facility], [address] [place] [phone] Eosinophil pct 2.2 % [facility] Comment:Testing performed by : [facility], [address] [place] [phone] Basophil pct 1.2 % [facility] Comment:Testing performed by : [facility], [address] [place] [phone] Blood specimen (specimen) 06/26/2019 10:20 AM FLOORING MACHINE OPERATOR 06/26/2019 10:27 AM FLOORING MACHINE OPERATOR us Zeeshan Rain MD LAB BLOOD ORDERABLES F inal Result [facility] Department [place] [address] * CBC with auto differential (06/26/2019 10:20 AM FLOORING MACHINE OPERATOR) WBC 4.6 3.8 - 9.8 K/cumm [facility] Comment:Testing performed by : [facility], [address] [place] [phone] Hgb 13.3 12.1 - 15.1 g/dL [facility] Comment:Testing performed by : [address] [phone] Hct 40.2 36.1 - 44.3 % [facility] Comment:Testing performed by : [address] [phone] Plt 195 140 - 440 K/cumm [facility] Comment:Testing performed by : [facility], [address] [place] [phone] MPV 7.7 6.8 - 10.4 fL [facility] Comment:Testing performed by : [address] [phone] RBC 4.26 3.90 - 5.00 M/cumm [facility] Comment:Testing performed by : [address] [phone] MCV 94.2 80.0 - 97.6 fL [facility] Comment:Testing performed by : [facility], [address] [place] [phone] MCH 31.1 26.7 - 33.7 pg [facility] Comment:Testing performed by : [facility], [address] [place] [phone] MCHC 33.0 32.7 - 35.5 g/dL [facility] Comment:Testing performed by : [facility], [address] [place] [phone] RDW CV 13.7 11.8 - 14.6 % [facility] Comment:Testing performed by : [facility], [address] [place] [phone] NRBC abs 0.00 0.00 - 0.01 K/cumm [facility] Comment:Testing performed by : [facility], [address] [place] [phone] Blood specimen (specimen) 06/26/2019 10:20 AM FLOORING MACHINE OPERATOR 06/26/2019 10:27 AM FLOORING MACHINE OPERATOR Zeeshan Rain MD LAB BLOOD ORDERABLES F inal Result [facility] Department [place] [address] documented in this encounter Visit Diagnoses Diagnosis Malignant neoplasm of upper lobe, right bronchus or lung (HCC) documented in this encounter Orders Appointment Requests Count Last Ordered Date Fi rst Ordered Date ONCBCN LAB APPOINTMENT 1 06/26/2019 documented in this encounter Care Teams Riveting Machine Operator Tape Control Relationship Specialty Start Date End Date Paula Robles NP PCP - General 05/31/17 Zeeshan Rain MD Medical Oncologist/Government Documents Librarian Medical Oncology 02/11/18 08/23/22 Addy Mathur MD PhD [address] [place] [address] Radiation Oncologist Radiation Oncology 03/10/18 documented as of this encounter
--- OUTSIDE RECORDS SUMMARY | 2024-08-06 17:35 | XMS_ITS | Encounter Summary ---
Author Organization [facility] Address [address] [place] [address] Phone Care Team Providers Care Wax Specialist Name Role Phone Travis Paula Knowles NP Primary Care Provider + Zeeshan Rain MD Unavailable [phone] Addy Mathur MD PhD Unavailable + [phone] Encounter Details Date Type Department Care Team (Late st Contact Info) Description 03/06/2019 10:00 AM CDT Lab [facility] Oncology [address] [facility] 7th [place] [address] [place] [address] Malignant neoplasm of upper lobe, right bronchus or lung (CMS/HCC) Social History Tobacco Use Types Packs/Day Years Used Date Smoking Tobacco: Former Cigarettes Smokeless Tobacco: Never Comments No Sex and Gender Information Value Date Recorded Sex Assigned at Not on file Legal Sex Female 1:02 AM SUPERVISOR HAND SILVERING Gender Identity Not on file Sexual Orientation Not on file documented as of this encounter Plan of Treatment Not on file documented as of this encounter Procedures Procedure Name Priority Date/Time Associated Diagnosis Comments DIFFERENTIAL AUTO Routine 03/06/2019 9:5 5 AM CDT Malignant neoplasm of upper lobe, right bronchus or lung (CMS/HCC) CBC WITH AUTO DIFFERENTIAL Routine 03/06/2019 9:55 AM CDT Malignant neoplasm of upper lobe, right bronchus or lung (CMS/HCC) COMPREHENSIVE METABOLIC PANEL STAT 03/06/2019 9:55 AM CDT Malignant neoplasm of upper lobe, right bronchus or lung (CMS/HCC) documented in this encounter Results * Differential, auto (03/06/2019 9:55 AM CDT) Neutrophil abs 2.8 1.8 - 6.6 K/cumm [facility] Comment:Testing performed by : [facility], [address] [place] [phone] Lymphocyte abs 1.6 1.2 - 3.3 K/cumm [facility] Comment:Testing performed by : [facility], [address] [place] [phone] Monocyte abs 0.4 0.2 - 1.2 K/cumm [facility] Comment:Testing performed by : [facility], [address] [place] [phone] Eosinophil abs 0.1 0.0 - 0.5 K/cumm [facility] Comment:Testing performed by : [facility], [address] [place] [phone] Basophil abs 0.1 0.0 - 0.2 K/cumm [facility] Comment:Testing performed by : [facility], [address] [place] [phone] Neutrophil pct 56.4 % [facility] Comment: Interpretive Data Percent cell count reference ranges are not reported, since discordance with absolute values may lead to misinterpretation of CBC data. Current Interpretive Data was last revised on 2017. Testing performed by: [facility], [address] [place] [phone] Lymphocyte pct 32.5 % [facility] Comment: Interpretive Data Percent cell count reference ranges are not reported, since discordance with absolute values may lead to misinterpretation of CBC data. Current Interpretive Data was last revised on 2017. Testing performed by: [facility], [address] [place] [phone] Monocyte pct 7.2 % [facility] Comment:Testing performed by : [facility], [address] [place] [phone] Eosinophil pct 2.8 % [facility] Comment:Testing performed by : [facility], [address] [place] [phone] Basophil pct 1.1 % [facility] Comment:Testing performed by : [facility], [address] [place] [phone] Blood specimen (specimen) 03/06/2019 9:55 AM CDT 03/06/2019 9:56 AM CDT us Zeeshan Rain MD LAB BLOOD ORDERABLES F inal Result [facility] Department [place] [address] * CBC with auto differential (03/06/2019 9:55 AM CDT) WBC 4.9 3.8 - 9.8 K/cumm [facility] Comment:Testing performed by : [facility], [address] [place] [phone] Hgb 13.8 12.1 - 15.1 g/dL [facility] Comment:Testing performed by : [facility], [address] [place] [phone] Hct 39.8 36.1 - 44.3 % [facility] Comment:Testing performed by : [facility], [address] [place] [phone] Plt 195 140 - 440 K/cumm [facility] Comment:Testing performed by : [facility], [address] [place] [phone] MPV 7.7 6.8 - 10.4 fL [facility] Comment:Testing performed by : [address] [phone] RBC 4.38 3.90 - 5.00 M/cumm [facility] Comment:Testing performed by : [address] [phone] MCV 91.0 80.0 - 97.6 fL [facility] Comment:Testing performed by : [facility], [address] [place] [phone] MCH 31.5 26.7 - 33.7 pg [facility] Comment:Testing performed by : [facility], [address] [place] [phone] MCHC 34.6 32.7 - 35.5 g/dL [facility] Comment:Testing performed by : [facility], [address] [place] [phone] RDW CV 13.8 11.8 - 14.6 % [facility] Comment:Testing performed by : [facility], [address] [place] [phone] NRBC abs 0.00 0.00 - 0.01 K/cumm [facility] Comment:Testing performed by : [facility], [address] [place] [phone] Blood specimen (specimen) 03/06/2019 9:55 AM CDT 03/06/2019 9:56 AM CDT Zeeshan Rain MD LAB BLOOD ORDERABLES F inal Result [facility] One [facility] Department [place] [address] * Comprehensive metabolic panel (03/06/2019 9:55 AM CDT) Sodium 142 135 - 145 mmol/L [facility] Potassium, pl 3.7 3.3 - 4.9 mmol/L [facility] Chloride 100 97 - 110 mmol/L [facility] CO2 30 22 - 32 mmol/L [facility] Anion gap 12 2 - 15 mmol/L [facility] BUN 14 8 - 25 mg/dL [facility] Creatinine 0.62 0.60 - 1.10 mg/dL [facility] Glucose 103 70 - 199 mg/dL [facility] Comment: Interpretive Data Fasting glucose >/= 126 [...] interpretive data was last revised 2017. Calcium 9.3 8.5 - 10.3 mg/dL [facility] Bilirubin, total 0.5 0.1 - 1.2 mg/dL [facility] Protein, pl 7.1 6.5 - 8.5 g/dL [facility] Albumin 4.1 3.5 - 5.0 g/dL [facility] Alk phos 88 40 - 130 Units/L [facility] ALT 20 7 - 45 Units/L [facility] AST 19 10 - 45 Units/L [facility] Blood specimen (specimen) 03/06/2019 9:55 AM CDT 03/06/2019 10:20 AM CDT Zeeshan Rain MD LAB BLOOD ORDERABLES F inal Result [facility] One [facility] Department [place] [address] documented in this encounter Visit Diagnoses Diagnosis Malignant neoplasm of upper lobe, right bronchus or lung (HCC) documented in this encounter Orders Appointment Requests Count Last Ordered Date Fi rst Ordered Date ONCBCN LAB APPOINTMENT 1 03/06/2019 documented in this encounter Care Teams Wax Specialist Relationship Specialty Start Date End Date Paula Robles NP PCP - General 05/31/17 Zeeshan Rain MD Medical Oncologist/Television Service Engineer Medical Oncology 02/11/18 08/23/22 Addy Mathur MD PhD [address] [place] [address] Radiation Oncologist Radiation Oncology 03/10/18 documented as of this encounter
--- OUTSIDE RECORDS SUMMARY | 2024-08-06 17:35 | XMS_ITS | Encounter Summary ---
Author Organization [facility] Address [address] [place] [address] Phone Care Team Providers Care Planning And Analysis Manager Name Role Phone Paula Robles NP Primary Care Provider + Zeeshan Rain MD Unavailable [phone] [facility] Unavailable [phone] Reason for Referral * (Routine) - Closed Specialty Diagnoses / Procedures Referred By Alan bangura Referred To Contact Diagnoses Pulmonary hypertension (HCC) Procedures Transthoracic Echo Complete W Doppler/CF Ally De Dios MD Phone: tel: fax: [address] [address] Referral ID Status Reason Start Date Expiration Date Visits Re quested Visits Authorized [id number] Closed 03/18/2020 04/17/2021 1 1 Reason for Visit * Consultation (Routine) - Closed Specialty Diagnoses / Procedures Referred By Alan bangura Referred To Contact Diagnoses Malignant neoplasm of upper lobe, right bronchus or lung (HCC) Zeeshan Rain MD Phone: tel: fax: [facility] (All Locations) Referral ID Status Reason Start Date Expiration Date V isits Requested Visits Authorized [id number] Closed Specialty Services Required 01/15/2020 07/26/2021 1 1 Encounter Details Date Type Department Care Team (Late st Contact Info) Description 03/18/2020 10:00 AM CDT Office Visit [facility] Gastroenterology [address] [place] [address] [place] [address] Ally De Dios MD [address] [facility] [address] [address] [place] [address] Pulmonary hypertension (CMS/HCC) (Primary Dx); Chronic liver disease Social History Tobacco Use Types Packs/Day Years Used Date Smoking Tobacco: Former Cigarettes Smokeless Tobacco: Never Comments No Sex and Gender Information Value Date Recorded Sex Assigned at Not on file 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 Gender Identity Not on file Sexual Orientation Not on file documented as of this encounter Last Filed Vital Signs Vital Sign Reading Time Taken Comments Blood Pressure 149/84 03/18/2020 10:01 AM CDT Pulse 108 03/18/2020 10:01 AM CDT Temperature 36.7 ??C (98 ??F) 03/18/2020 10: 01 AM CDT Respiratory Rate - - Oxygen Saturation - - Inhaled Oxygen Concentration - - Weight 111.5 kg (245 lb 12.8 oz) 2019 10:01 AM CDT Height 156.4 cm (5' 1.58 ) 03/18/2020 1 0:01 AM CDT Body Mass Index 45.57 03/18/2020 10:01 AM CDT documented in this encounter Progress Notes * Clotilde Barcenas MD - 03/18/2020 10:00 AM CDT Hepatology Consult Subjective Patient is a 69 y.o. female with chief complaint of cirrhosis on recent imaging. Reason for consult: Evaluation and management Requesting Provider: Dr. 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 She was undergoing follow-up scans, which commented Periportal widening and subtle hepatic nodularity can be seen in Cirrhosis. She was referred to hepatology clinic by her oncologist due to this finding. She denies any significant history of alcohol, but she does comment that her sister from alcoholic liver disease. She denies any other medications or supplements not already included on her chart. She reports having a stable weight, which is a BMI = 45. She has always carried her weightin her mid section. She has 2 children both of which are healthy and without liver disease. She denies any jaundice or scleral icterus. She does report lower extremity swelling, which has been chronic. She hasn't had a recent TTE, but she did have a LHC in ?2013, which was reportedly normal. She has no other complaints or concerns at this time. TREATMENT HISTORY: ??1.?Concurrent chemoradiation with carboplatin and etoposide with radiation from 06/21/2017 to 08/03/2017, and chemotherapy from 05/28/2017 to 08/05/2017. ??2.?Prophylactic whole-brain radiation in 10 fractions from 09/13/2017 to 09/24/2017. History reviewed. No pertinent past medical history. Past Surgical History: Procedure Laterality Date ??? SECTION x2 (Not in a hospital admission) Allergies Allergen Reactions ??? Rosuvastatin Unknown and Other (See comments) Social History Tobacco Use ??? Smoking status: Former Smoker Types: Cigarettes ??? Smokeless tobacco: Never Used Substance Use Topics ??? Alcohol use: Not on file Family History Problem Relation Age of Onset ??? Alzheimer's disease Mother ??? No Known Problems Father ??? Cirrhosis Sister Alcohol ??? No Known Problems Brother Social History Socioeconomic History ??? Marital status: Spouse name: Not on file ??? Number of children: Not on file ??? Years of education: Not on file ??? Highest education level: Not on file Occupational History ??? Not on file Social Needs ??? Financial resource strain: Not on file ??? Food insecurity Worry: Not on file Inability: Not on file ??? Transportation needs Medical: Not on file Non-medical: Not on file Tobacco Use ??? Smoking status: Former Smoker Types: Cigarettes ??? Smokeless tobacco: Never Used Substance and Sexual Activity ??? Alcohol use: Not on file ??? Drug use: Not on file ??? Sexual activity: Not on file Lifestyle ??? Physical activity Days per week: Not on file Minutes per session: Not on file ??? Stress: Not on file Relationships ??? Social connections Talks on phone: Not on file Gets together: Not on file Attends spiritism service: Not on file Active member of club or organization: Not on file Attends meetings of clubs or organizations: Not on file Relationship status: Not on file ??? Intimate partner violence Fear of current or ex partner: Not on file Emotionally abused: Not on file Physically abused: Not on file Forced sexual activity: Not on file Other Topics Concern ??? Not on file Social History Narrative Living Situation: Residential institution 07/12/17 (Added by TW Conv) Review of Systems: Review of systems per HPI and otherwise all other systems are negative. Vitals: Most Recent : Vitals BP 149/84 Pulse 108 Temp 36.7 ??C (98 ??F) Ht 156.4 cm (5' 1.58 ) Wt 111.5 kg (245 lb 12.8 oz) BMI 45.57 kg/m?? Objective Physical Exam: General Appearance: Alert, cooperative, no distress, appears stated age, well developed, well nourished Head: Normocephalic, without obvious abnormality, atraumatic Eyes: PERRL, conjunctiva/corneas clear, EOM's intact, both eyes, anicteric Throat: Lips, mucosa, and tongue normal; teeth and gums normal, mucous membranes moist Neck: Supple, symmetrical, trachea midline, no adenopathy; thyroid: No enlargement/tenderness/nodules; no carotid bruit or JVD Back: Symmetric, no curvature, ROM normal, no CVA tenderness Lungs: +b/l minimal expiratory wheezing, respirations unlabored Cardiovascular: Regular rate and rhythm, S1 and S2 normal, ?S3 vs. S4. No murmur, 1+ pitting edema to shins, pulses 2+ and symmetric to all extremities Abdomen: Soft, obese,non-tender, bowel sounds active all four quadrants, no masses, no organomegaly, non-distended Extremities: Extremities normal, atraumatic, no cyanosis, no clubbing Skin: Skin color, texture, turgor normal, no rashes, lesions or bruising Lymph nodes: Cervical, supraclavicular, and axillary nodes normal Neurologic: Alert & oriented x 4, CNII-XII intact. Normal strength, sensation and reflexes throughout Psychosocial: Normal affect and mood Lab/Radiology/Diagnostic Review: Laboratory review: reviewed the laboratory result(s) LFTs normal Assessment/Plan Problem List Items Addressed This Visit Circulatory Pulmonary hypertension (CMS/HCC) - Primary Relevant Orders Transthoracic Echo Complete W Doppler/CF Digestive Chronic liver disease This is concern for chronic liver disease [...] start our evaluation by obtain a TTE. Cosigned by Ally De Dios MD at 03/18/2020 5:13 PM CDT Associated attestation - Ally De Dios MD - 03/18/2020 5:13 PM CDT I have seen and examined the patient. I agree with the findings and plan of care as documented in the resident/fellow's note. Her history of morbid obesity certainly places her at risk for fatty infiltration of the liver with or without hepatic fibrosis. However, there was also a question of pulmonary hypertension in the past. Right ventricular dysfunction could certainly lead to passive hepatic congestion and give the liver the appearance of hepatic fibrosis. Thus, I will check an echocardiogram to further assess her right ventricular function. If this is unrevealing, a liver biopsy is a consideration. All of these issues were discussed at length. documented in this encounter Miscellaneous Notes * Assessment & Plan Note - Clotilde Barcenas MD - 03/18/2020 12:03 PM CDT Associated Problem(s): Chronic liver disease This is concern for chronic liver disease [...] start our evaluation by obtain a TTE. documented in this encounter Plan of Treatment Not on file documented as of this encounter Results * TRANSTHORACIC ECHO (TTE) COMPLETE W DOPPLER/CF WO CONTRAST (04/18/2020 12:18 PM CDT) Anatomical Region Laterality Modality Ultrasound 04/18/2020 10:3 0 AM CDT Narrative 04/19/2020 8:12 AM CDT Patient name: Gaby Morgan Date of test: 04/18/2020 Type of test: TTE w/Doppler [facility] #: [id number] Date of : 1950 (F) Salvage Engineer: Alvin Bartholomew RDCS Referring Physician: ALLY DE DIOS MD Contrast Agent: Unable to obtain IV access for contrast administration. Contrast Administered by: Supervised/Interpreted by: Rasheed Delgadillo MD Diagnosis: Location: [facility] Reason for test: Possible Pulmonary Hypertension MV Structure: Normal, ?MV Motion: Normal, ?? Mitral Annulus: Normal AV Structure: tricuspid and is Normal, ?? AV Motion: Normal Aotic root: Normal, ?TM: Normal, ?? PV: Normal Valvular Vegetations: none seen, ?Mass/Thrombi: none seen RA: Normal Measurements: ?M-Mode ?Normal ? Aotic Root: ? <3.8 ? LA: ? <3.8 ? RV: ? <2.8 ? LV(ED): ? 6.2 cm ?<5.7 ? LV(ES): ? 4.2 cm ?Variable ?2D Linear Normal ? Aotic Root: 3.3 cm ?<3.6 ? Ao Indexed: 1.6 cm/M2 <2.0 ? LA: ? <3.8 ? RV: ? 4.0 cm ?<4.2 ? LV(ED): ? 5.2 cm ?<5.3 ? LV(ES): ? 3.3 cm ?<3.5 ?2D Vol. ?? Normal ?Indexed ?? Indexed Normal RA: ? 9-33 ? LA: ? 16-34 ? RV: ? <11.6 ? LV(ED): ? 65.0 ml ?? 46-106 ?31.6 ml/M2 ?<62 ? LV(ES): ? 15.0 ml ?? 14-42 ? 7.3 ml/M2 ? <25 ?3D Vol. ? Indexed Normal LV(ED): ?<62 ? LV(ES): ?<24 ? LV EF: 77 % ?? (Normal: >=54%) ?? LV Septum: 1.2 cm ?(Normal: <0.9 cm) Wall Motion Scoring (1=Normal 2=Hypo 3=Akinetic 4=Dyskin./Aneurysm 0=Not visualized) Parasternal Long [place]:MAS=1 BAS=1 MIL=1 LOCO=1 Parasternal Short [place]:MAS=1 MIS=1 ID=1 MIL=1 MAL=1 MA=1 Apical 4 Chambers:=1 MIS=1 BIS=1 BAL=1 MAL=1 AL=1 AC=1 Apical 2 Chambers:AI=1 ID=1 BI=1 BA=1 MA=1 AA=1 AC=1 LV Global Longitudinal Strain: RV Global Longitudinal Strain: LV Function: Normal LV Ejection Fraction, ??(EF=54-74%) RV Function: Normal Septal Motion: Normal Pericardial Effusion: none seen Atrial Septum: Normal DOPPLER/COLOR FLOW DOPPLER RESULTS: Diastolic Function: Normal Tricuspid Valve: normal TV Pulmonic Valve: normal PV AV Regurgitation: No AR seen AV Stenosis: no AV Area: ??cm2 AV Pressure Gradient (mmHg): Mean: 0, Peak:0 MV Regurgitation: No MR seen MV Stenosis: no MS MV Area: ??cm2 MV Pressure Gradient (mmHg): Mean: 0 MV ERO: ??cm Regurg. Vol.: ??ml/beat Regurg. Frac.: ??% PA Pressure: ??mmHg DOPPLER/COLOR FOLOW DOPPLER COMMENTS: No AR seen, No MR seen, no , no MS, normal TV, normal PV. Diastolic function: Normal CONTRAST: Unable to obtain IV access for contrast administration. SUMMARY: Technically difficult study without contrast. LA is normal. Normal RV cavity size and function. LV cavity size is normal. Mild concentric LV hypertrophy and hyperdynamic LVF; EF=77%. Normal Inferior vena cava.Small anteroapical pericardial effusion with organization and no hemodynamic effect. Normal aorta. TR velocity not available. No previous study. Confirmed on ??04/19/2020 - 08:12:52 by Rasheed Delgadillo MD By signing this report, the attending wheat farmer certifies that he or she has personally supervised and interpreted the echocardiogram and has reviewed and or edited and agrees with the written comments contained within the report. Procedure Note Rasheed Delgadillo MD - 04/19/2020 Patient name: Gaby Morgan Date of test: 04/18/2020 Type of test: TTE w/[facility] #: [id number] Date of : 1950 (F) Salvage Engineer: Alvin Bartholomew DARSHANA Referring Physician: ALLY DE DIOS MD Contrast Agent: Unable to obtain IV access for contrast administration. Contrast Administered by: Supervised/Interpreted by: Rasheed Delgadillo MD Diagnosis: Location: [facility] Reason for test: Possible Pulmonary Hypertension MV Structure: Normal, MV Motion: Normal, Mitral Annulus: Normal AV Structure: tricuspid and is Normal, AV Motion: Normal Aotic root: Normal, TM: Normal, PV: Normal Valvular Vegetations: none seen, Mass/Thrombi: none seen RA: Normal Measurements: M-Mode Normal Aotic Root: <3.8 LA: <3.8 RV: <2.8 LV(ED): 6.2 cm <5.7 LV(ES): 4.2 cm Variable 2D Linear Normal Aotic Root: 3.3 cm <3.6 Ao Indexed: 1.6 cm/M2 <2.0 LA: <3.8 RV: 4.0 cm <4.2 LV(ED): 5.2 cm <5.3 LV(ES): 3.3 cm <3.5 2D Vol. Normal Indexed Indexed Normal RA: 9-33 LA: 16-34 RV: <11.6 LV(ED): 65.0 ml 46-106 31.6 ml/M2 <62 LV(ES): 15.0 ml 14-42 7.3 ml/M2 <25 3D Vol. Indexed Normal LV(ED): <62 LV(ES): <24 LV EF: 77 % (Normal: >=54%) LV Septum: 1.2 cm (Normal: <0.9 cm) Wall Motion Scoring (1=Normal 2=Hypo 3=Akinetic 4=Dyskin./Aneurysm 0=Not visualized) Parasternal Long [place]:MAS=1 BAS=1 MIL=1 LOCO=1 Parasternal Short [place]:MAS=1 MIS=1 ID=1 MIL=1 MAL=1 MA=1 Apical 4 Chambers:=1 MIS=1 BIS=1 BAL=1 MAL=1 AL=1 AC=1 Apical 2 Chambers:AI=1 ID=1 BI=1 BA=1 MA=1 AA=1 AC=1 LV Global Longitudinal Strain: RV Global Longitudinal Strain: LV Function: Normal LV Ejection Fraction, (EF=54-74%) RV Function: Normal Septal Motion: Normal Pericardial Effusion: none seen Atrial Septum: Normal DOPPLER/COLOR FLOW DOPPLER RESULTS: Diastolic Function: Normal Tricuspid Valve: normal TV Pulmonic Valve: normal PV AV Regurgitation: No AR seen AV Stenosis: no AV Area: cm2 AV Pressure Gradient (mmHg): Mean: 0, Peak:0 MV Regurgitation: No MR seen MV Stenosis: no MS MV Area: cm2 MV Pressure Gradient (mmHg): Mean: 0 MV ERO: cm Regurg. Vol.: ml/beat Regurg. Frac.: % PA Pressure: mmHg DOPPLER/COLOR FOLOW DOPPLER COMMENTS: No AR seen, No MR seen, no , no MS, normal TV, normal PV. Diastolic function: Normal CONTRAST: Unable to obtain IV access for contrast administration. SUMMARY: Technically difficult study without contrast. LA is normal. Normal RV cavity size and function. LV cavity size is normal. Mild concentric LV hypertrophy and hyperdynamic LVF; EF=77%. Normal Inferior vena cava.Small anteroapical pericardial effusion with organization and no hemodynamic effect. Normal aorta. TR velocity not available. No previous study. Confirmed on 04/19/2020 - 08:12:52 by Rasheed Delgadillo MD By signing this report, the attending wheat farmer certifies that he or she has personally supervised and interpreted the echocardiogram and has reviewed and or edited and agrees with the written comments contained within the report. Ally De Dios MD CV ECHO PROCEDURES Fin al Result documented in this encounter Visit Diagnoses Diagnosis Pulmonary hypertension (HCC)- Primary Other chronic pulmonary heart diseases Chronic liver disease Unspecified chronic liver disease without mention of alcohol Pulmonary hypertension (HCC) Other chronic pulmonary heart diseases documented in this encounter Care Teams Planning And Analysis Manager Relationship Specialty Start Date End Date Paula Robles NP PCP - General 05/31/17 Zeeshan Rain MD Medical Oncologist/Tax Lawyer Medical Oncology 02/11/18 08/23/22 Addy Mathur MD PhD [address] [place] [address] Radiation Oncologist Radiation Oncology 03/10/18 documented as of this encounter
--- OUTSIDE RECORDS SUMMARY | 2024-08-06 17:35 | XMS_ITS | Encounter Summary ---
Author Organization [facility] Healthcare Address [address] [place] [address] Care Team Providers Care Religious Education Coordinator Name Role Phone TravisPaula Eleni SERVICE DOG TRAINER Primary Care Provider + Zeeshan Rain MD Unavailable [phone] Addy reyna MD PhD Unavailable + [phone] Reason for Referral * Diagnostic Imaging (Routine) - Closed Specialty Diagnoses / Procedures Referred By Alan bangura Referred To Contact Radiology Diagnoses Malignant neoplasm of upper lobe, right bronchus or lung (HCC) Procedures PET/CT FDG Skull to Thigh Zeeshan Rain MD Phone: tel: fax: [address] [address] Referral ID Status Reason Start Date Expiration Date Visits Re quested Visits Authorized [id number] Closed 04/28/2019 11/06/2020 1 1 ACER Reason for Visit * Diagnostic Imaging (Routine) - Closed Specialty Diagnoses / Procedures Referred By Alan bangura Referred To Contact Radiology Diagnoses Malignant neoplasm of upper lobe, right bronchus or lung (HCC) Procedures PET/CT FDG Skull to Thigh Zeeshan Rain MD Phone: tel: fax: [facility] [address] [facility] [place] [address] Referral ID Status Reason Start Date Expiration Date Visits Re quested Visits Authorized [id number] Closed 04/28/2019 11/06/2020 1 1 Encounter Details Date Type Department Care Team (Latest Contact Info) Description 06/23/2019 9:51 AM SURFACER - 06/23/2019 11:59 PM SURFACER Hospital Encounter [facility] [place] [address] Zeeshan Rain MD [address] [place] [address] Malignant neoplasm of upper lobe, right bronchus or lung (CMS/HCC) Discharge Disposition: Discharge to home or self care Social History Tobacco Use Types Packs/Day Years Used Date Smoking Tobacco: Former Cigarettes Smokeless Tobacco: Never Comments No Sex and Gender Information Value Date Recorded Sex Assigned at Not on file Legal Sex Female 1:02 AM SURFACER Gender Identity Not on file Sexual Orientation Not on file documented as of this encounter Last Filed Vital Signs Vital Sign Reading Time Taken Comments Blood Pressure - - Pulse - - Temperature - - Respiratory Rate - - Oxygen Saturation - - Inhaled Oxygen Concentration - - Weight 110.2 kg (243 lb) 06/23/2019 10:32 AM SURFACER Height - - Body Mass Index 44.45 06/09/2018 2:13 PM CDT documented in this encounter Medications at Time [...] 1 PUFF PO QID 5 01/11/2018 3 fluticasone (FLONASE) 50 mcg/actuation nasal spray daily. 3 LORazepam (ATIVAN) 0.5 mg tablet 1 tab po q 6-8 hours prn nausea. Try this medication third 05/24/2017 3 methylPREDNISolone (MEDROL DOSEPACK) 4 mg Dosepack TK UTD 0 01/18/2018 9 metroNIDAZOLE 0.75 % lotion GRETEL EXT AA QD 0 10/14/2018 3 ondansetron (ZOFRAN) 8 mg tablet TAKE 1 TABLET EVERY 8 HOURS PRN nausea,try this medication FIRST 05/24/2017 3 POTASSIUM CHLORIDE ER 20 mEq CR tablet TAKE 1 TABLET(20 MEQ) BY MOUTH TWICE DAILY 60 tablet 03/28/2019 0 predniSONE (DELTASONE) 20 mg tablet TK 1 T PO BID FOR 7 DAYS 0 01/11/2018 3 predniSONE (DELTASONE) 5 mg tablet take 8 tabs (40 mg) for 3 days and decrease by 5 mg q 3 days 10/25/2017 9 prochlorperazine (COMPAZINE) 10 mg tablet 1 tab [...] THIGH Schedule Routine, Read Routine (OP Routine) 06/23/2019 11:33 AM SURFACER Malignant neoplasm of upper lobe, right bronchus or lung (CMS/HCC) documented in this encounter Results * PET/CT FDG Skull to Thigh (06/23/2019 11:33 AM SURFACER) Anatomical Region Laterality Modality N/A Positron Emissio n Tomography (PET) 06/23/2019 1:36 PM SURFACER Impressions 06/23/2019 4:32 PM SURFACER 1. Resolution of intense FDG uptake in the central right upper lobe mass with post-radiation changes. No definite FDG evidence of disease recurrence or metastatic disease. 2. Mild FDG avid focus associated with pulmonary nodules and a new area of atelectasis, likely representing an inflammatory/infectious process. Attention on subsequent imaging is recommended. Dictated by: Gurdeep Pearce M.D. The radiology attending physician has personally reviewed this study, and had reviewed and/or edited this written report and agrees with it. Electronically signed by: Sohail Mariscal M.D. Narrative 06/23/2019 4:32 PM SURFACER EXAMINATION: TUMOR FDG-PET/CT IMAGING DATE OF STUDY: ??06/23/2019 SCANNER: mCT RADIOPHARMACEUTICAL: 18.3 mCi F-18 Fluorodeoxyglucose (FDG) i.v. 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 ??The study is requested for restaging after completion of therapy. Subsequent treatment strategy. TECHNIQUE: ?? The patient's fasting blood glucose level, measured by glucometer before injection of FDG, was 94 mg/dL. ??MD-Gastroview was given orally. ??After intravenous administration of FDG, noncontrast CT images were obtained for attenuation correction and for fusion with emission PET images to allow for anatomical localization of PET findings. ??Emission PET images were then obtained. ??The study was interpreted on the [employer] workstation. ??The mean liver SUV (reported for quality lab technician purposes) is 2.8. ?? The total scanned area was skull base to the proximal thighs. ??Images of the body were obtained starting 53 minutes after injection of tracer. COMPARISON: CT dated 04/27/2019, outside PET/CT dated 05/11/2017 FINDINGS: Mild/moderate FDG uptake associated with volume loss and architectural distortion in the right middle lobe is consistent with post radiation changes. ??No CT evidence of local recurrent disease. FDG uptake in the periphery of the right lung base is associated with tree-in-bud nodularity and rounded atelectasis with SUV max of 3.6 (image [id number]), likely representing infectious/inflammatory . ??This is slightly more prominent from CT dated 04/27/2019. Photopenia of the upper thoracic vertebra are compatible with post-radiation changes. Additional CT findings: Right-sided pleural thickening. ??Bibasilar atelectasis. ??Atherosclerotic calcification of aorta and coronary arteries. ??Cholelithiasis. Colonic diverticulosis. Fat-containing periumbilical ventral hernia. ??Non-instrumented fusion of L4 and L5. Procedure Note Sohail Mariscal MD - 06/23/2019 EXAMINATION: TUMOR FDG-PET/CT IMAGING DATE OF STUDY: 06/23/2019 SCANNER: mCT RADIOPHARMACEUTICAL: 18.3 mCi F-18 Fluorodeoxyglucose (FDG) i.v. 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 The study is requested for restaging after completion of therapy. Subsequent treatment strategy. TECHNIQUE: The patient's fasting blood glucose level, measured by glucometer before injection of FDG, was 94 mg/dL. FEDERICOGastroview was given orally. After intravenous administration of FDG, noncontrast CT images were obtained for attenuation correction and for fusion with emission PET images to allow for anatomical localization of PET findings. Emission PET images were then obtained. The study was interpreted on the [employer] workstation. The mean liver SUV (reported for quality lab technician purposes) is 2.8. The total scanned area was skull base to the proximal thighs. Images of the body were obtained starting 53 minutes after injection of tracer. COMPARISON: CT dated 04/27/2019, outside PET/CT dated 05/11/2017 FINDINGS: Mild/moderate FDG uptake associated with volume loss and architectural distortion in the right middle lobe is consistent with post radiation changes. No CT evidence of local recurrent disease. FDG uptake in the periphery of the right lung base is associated with tree-in-bud nodularity and rounded atelectasis with SUV max of 3.6 (image [id number]), likely representing infectious/inflammatory . This is slightly more prominent from CT dated 04/27/2019. Photopenia of the upper thoracic vertebra are compatible with post-radiation changes. Additional CT findings: Right-sided pleural thickening. Bibasilar atelectasis. Atherosclerotic calcification of aorta and coronary arteries. Cholelithiasis. Colonic diverticulosis. Fat-containing periumbilical ventral hernia. Non-instrumented fusion of L4 and L5. IMPRESSION: 1. Resolution of intense FDG uptake in the central right upper lobe mass with post-radiation changes. No definite FDG evidence of disease recurrence or metastatic disease. 2. Mild FDG avid focus associated with pulmonary nodules and a new area of atelectasis, likely representing an inflammatory/infectious process. Attention on subsequent imaging is recommended. Dictated by: Gurdeep Pearce M.D. The radiology attending physician has personally reviewed this study, and had reviewed and/or edited this written report and agrees with it. Electronically signed by: Sohail Mariscal M.D. Zeeshan Rain MD IMG PET PROCEDURES Fin al Result documented in this encounter Visit Diagnoses Diagnosis Malignant neoplasm of upper lobe, right bronchus or lung (HCC) documented in this encounter Administered Medications Inactive Administered Medications - up to 3 most recent administrations Medication Order MAR Action Action Date Dose Rate Site diatrizoate meglumine-diatrizoate sodium (GASTROGRAFIN/-GASTROVIE W) 66-10 % solution 7 mL 7 mL, oral, Once in imaging, contrast, Starting on Wed06/23/19 at 1031, For 1 dose, Indications: Digestive System RadiographyIndications:Dig estive System Radiography Given 06/23/2019 11:33 AM SURFACER 7 mL f-18 fdg injection 17.5 millicurie 17.5 millicurie, intravenous, Once in imaging, radiopharmaceutical, Starting on Wed06/23/19 at 1030, For 1 dose Given 06/23/2019 10:27 AM SURFACER 18.25 millicuries documented in this encounter Care Teams Religious Education Coordinator Relationship Specialty Start Date End Date Paula Robles NP PCP - General 05/31/17 Zeeshan Rain MD Medical Oncologist/Metal Cutter Medical Oncology 02/11/18 08/23/22 Addy Mathur MD PhD [address] [place] [address] Radiation Oncologist Radiation Oncology 03/10/18 documented as of this encounter
--- OUTSIDE RECORDS SUMMARY | 2024-08-06 17:35 | XMS_ITS | Encounter Summary ---
Author Organization [facility] Healthcare Address [address] [place] [address] Care Team Providers Care Fruit Worker Name Role Phone Paula Robles NURSING HOME ADMINISTRATOR Primary Care Provider + Zeeshan Rain MD Unavailable [phone] Addy Mathur MD PhD Unavailable [phone] Reason for Referral * MRI/CAT/PET Scan (Routine) - Closed Specialty Diagnoses / Procedures Referred By Alan bangura Referred To Contact Radiology Diagnoses Malignant neoplasm of upper lobe, right bronchus or lung (HCC) Procedures CT chest abdomen pelvis with contrast Pam Aggarwal NP Phone: tel: fax: [address] [address] Referral ID Status Reason Start Date Expiration Date Visits Re quested Visits Authorized [id number] Closed 01/15/2020 07/26/2021 1 1 Reason for Visit * MRI/CAT/PET Scan (Routine) - Closed Specialty Diagnoses / Procedures Referred By Alan bangura Referred To Contact Radiology Diagnoses Malignant neoplasm of upper lobe, right bronchus or lung (HCC) Procedures CT chest abdomen pelvis with contrast Pam Aggarwal NP Phone: tel: fax: [facility] [address] [facility] [place] [address] Referral ID Status Reason Start Date Expiration Date Visits Re quested Visits Authorized [id number] Closed 01/15/2020 07/26/2021 1 1 Encounter Details Date Type Department Care Team (Latest Contact Info) Description 05/09/2020 10:00 AM CDT - 05/09/2020 11:59 PM CDT Hospital Encounter [facility] [place] [address] Zeeshan Rain MD [address] [place] [address] Pam Aggarwal NP [address] [place] [address] Malignant neoplasm of upper lobe, right bronchus or lung (CMS/HCC) Discharge Disposition: Discharge to home or self care Social History Tobacco Use Types Packs/Day Years Used Date Smoking Tobacco: Former Cigarettes Smokeless Tobacco: Never Comments No Sex and Gender Information Value Date Recorded Sex Assigned at Not on file Legal Sex Female 1:02 AM CHIP BIN OPERATOR Gender Identity Not on file Sexual [...] (two) times a day 60 tablet 3 10/25/2019 0 predniSONE (DELTASONE) 10 mg tablet pack prednisone [...] CONTRAST Schedule Routine, Read Routine (OP Routine) 05/09/2020 10:50 AM CDT Malignant neoplasm of upper lobe, right bronchus or lung (CMS/HCC) POCT CREATININE - DEVICE Routine 05/09/2020 10:22 AM CDT documented in this encounter Results * CT chest abdomen pelvis with contrast (05/09/2020 10:50 AM CDT) Anatomical Region Laterality Modality Body N/A Computed Tomogra phy 05/09/2020 11:4 8 AM CDT Impressions 05/09/2020 1:19 PM CDT 1. ??New cluster of nodules in the right lower lobe are likely sequela of aspiration, short-term follow-up in 3 months is recommended to document resolution of these findings. 2. ??Post treatment changes involving the right upper and lower lobes with persistent right middle lobe collapse. ??Stable sub-3 mm pulmonary nodules. 2. ??No CT evidence for metastatic disease in abdomen or pelvis. 3. ??Periportal widening of nodular appearance of the undersurface liver to be seen in the setting of fibrosis. 4. Enlargement of pulmonary artery can be seen in a setting of pulmonary hypertension. Dictated by: Jesse Blair M.D. The radiology attending physician has personally reviewed this study, and had reviewed and/or edited this written report and agrees with it. Electronically signed by: Cliff Bui M.D. Narrative 05/09/2020 1:19 PM CDT EXAMINATION: ??Computed tomography of the chest, abdomen and pelvis with intravenous contrast HISTORY: Small cell lung cancer status post chemoradiation. TECHNIQUE: ??Transaxial computed tomographic images of the chest, abdomen and pelvis ??were obtained with intravenous contrast according to the standard protocol after the uneventful administration of 125 mL Opti-Ray 350 intravenous contrast. COMPARISON: Multiple priors, the most recent obtained on 01/11/2020. FINDINGS: ?? Chest: There are posttreatment changes of right upper and lower lobes with persistent partial collapse of the right middle lobe. ??These findings are unchanged since the prior examination. ??There is left upper lobe pulmonary nodule seen on the slice location 365 measuring approximately 3 mm, unchanged since the prior examination. ??Tiny subpleural are 2 mm pulmonary nodule abutting the pleural surface in the right lower lobe seen on the slice location 257 and is also unchanged. There are cluster of nodules in the medial basal segment of right lower, new since the prior examination, best appreciated on slice location ??299.0. Pulmonary artery is enlarged measuring up to 3.7 cm, unchanged. ??This can be seen in a setting of pulmonary hypertension. ??There is enlargement of the right ventricle with no pericardial effusion. Abdomen/Pelvis: Liver surface appears nodular. ??There is periportal widening. ??There is diffuse hepatic steatosis. ??There is a gallbladder stone. ??Spleen is unremarkable. ??Note is made of a splenule. ??There is fatty atrophy of the pancreas. ??There is no free fluid in the abdomen or pelvis. ??There is fat-containing umbilical hernia with the neck measuring approximately 2.5 cm. ??There is no bowel wall thickening or bowel obstruction. ??There is no abdominal or pelvic lymphadenopathy by size criteria. ??There is no pelvic masses seen. ??Adrenal glands and both kidneys are unremarkable. ??No hydronephrosis. ??Urinary bladder is decompressed. ??Abdominal aorta is normal in course and caliber with diffuse atherosclerotic calcifications. Bone windows do not demonstrate any suspicious osseous lesions. Procedure Note Cliff Bui MD - 05/09/2020 EXAMINATION: Computed tomography of the chest, abdomen and pelvis with intravenous contrast HISTORY: Small cell lung cancer status post chemoradiation. TECHNIQUE: Transaxial computed tomographic images of the chest, abdomen and pelvis were obtained with intravenous contrast according to the standard protocol after the uneventful administration of 125 mL Opti-Ray 350 intravenous contrast. COMPARISON: Multiple priors, the most recent obtained on 01/11/2020. FINDINGS: Chest: There are posttreatment changes of right upper and lower lobes with persistent partial collapse of the right middle lobe. These findings are unchanged since the prior examination. There is left upper lobe pulmonary nodule seen on the slice location 365 measuring approximately 3 mm, unchanged since the prior examination. Tiny subpleural are 2 mm pulmonary nodule abutting the pleural surface in the right lower lobe seen on the slice location 257 and is also unchanged. There are cluster of nodules in the medial basal segment of right lower, new since the prior examination, best appreciated on slice location 299.0. Pulmonary artery is enlarged measuring up to 3.7 cm, unchanged. This can be seen in a setting of pulmonary hypertension. There is enlargement of the right ventricle with no pericardial effusion. Abdomen/Pelvis: Liver surface appears nodular. There is periportal widening. There is diffuse hepatic steatosis. There is a gallbladder stone. Spleen is unremarkable. Note is made of a splenule. There is fatty atrophy of the pancreas. There is no free fluid in the abdomen or pelvis. There is fat-containing umbilical hernia with the neck measuring approximately 2.5 cm. There is no bowel wall thickening or bowel obstruction. There is no abdominal or pelvic lymphadenopathy by size criteria. There is no pelvic masses seen. Adrenal glands and both kidneys are unremarkable. No hydronephrosis. Urinary bladder is decompressed. Abdominal aorta is normal in course and caliber with diffuse atherosclerotic calcifications. Bone windows do not demonstrate any suspicious osseous lesions. IMPRESSION: 1. New cluster of nodules in the right lower lobe are likely sequela of aspiration, short-term follow-up in 3 months is recommended to document resolution of these findings. 2. Post treatment changes involving the right upper and lower lobes with persistent right middle lobe collapse. Stable sub-3 mm pulmonary nodules. 2. No CT evidence for metastatic disease in abdomen or pelvis. 3. Periportal widening of nodular appearance of the undersurface liver to be seen in the setting of fibrosis. 4. Enlargement of pulmonary artery can be seen in a setting of pulmonary hypertension. Dictated by: Jesse Blair M.D. The radiology attending physician has personally reviewed this study, and had reviewed and/or edited this written report and agrees with it. Electronically signed by: Cliff Bui M.D. Pam Aggarwal NP IM CT PROCEDURES Final Result * POCT creatinine (05/09/2020 10:22 AM CDT) Creatinine POC 0.7 0.6 - 1.1 mg/dL [facility] Blood specimen (specimen) 05/09/2020 10:22 AM CDT 05/09/2020 10:22 AM CDT Pam Aggarwal NURSING HOME ADMINISTRATOR LAB POCT ORDERABLES - D EVICE Final Result [facility] Department [place] [address] documented in this encounter Visit Diagnoses Diagnosis Malignant neoplasm of upper lobe, right bronchus or lung (HCC) documented in this encounter Administered Medications Inactive Administered Medications - up to 3 most recent administrations Medication Order MAR Action Action Date Dose Rate Site ioversoL (OPTIRAY 350) syringe syringe 125 mL 125 mL, intravenous, Once in imaging, contrast, Starting on La 05/09/20 at 1038, For 1 dose Given 05/09/2020 10:50 AM CDT 125 mL documented in this encounter Orders Medications Ordered That Adam ht Not Have Been Administered Count Last Ordered Date First Ordered Date ioversoL (OPTIRAY 350) syrin ge syringe 125 mL 1 05/09/2020 documented in this encounter Care Teams Fruit Worker Relationship Specialty Start Date End Date Paula Robles NP PCP - General 05/31/17 Zeeshan Rain MD Medical Oncologist/Assistant Editor Medical Oncology 02/11/18 08/23/22 Addy Mathur MD PhD [address] [place] [address] Radiation Oncologist Radiation Oncology 03/10/18 documented as of this encounter
--- OUTSIDE RECORDS SUMMARY | 2024-08-06 17:35 | XMS_ITS | Encounter Summary ---
Author Organization [facility] Address [address] [place] [address] Phone Care Team Providers Care Grommet Machine Operator Name Role Phone Travis, Paula Knowles NP Primary Care Provider + Zeeshan Rain MD Unavailable [phone] [facility] Unavailable + [phone] Reason for Referral * Diagnostic Imaging (Routine) - Closed Specialty Diagnoses / Procedures Referred By Alan t Referred To Contact Radiology Diagnoses Malignant neoplasm of upper lobe, right bronchus or lung (HCC) Procedures CT Chest Abdomen Pelvis W Contrast Zeeshan Rain MD Phone: tel: fax: [address] [address] Referral ID Status Reason Start Date Expiration Date Visits Re quested Visits Authorized [id number] Closed 06/26/2019 01/04/2021 1 1 STRIAL EQUIPMENT MECHANIC Encounter Details Date Type Department Care Team (Late st Contact Info) Description 06/26/2019 11:20 AM INDUSTRIAL EQUIPMENT MECHANIC Office Visit [facility] Oncology [facility] 7th [place] [address] [place] [address] Zeeshan Rain MD [address] [place] [address] Malignant neoplasm of upper lobe, right bronchus or lung (CMS/HCC) (Primary Dx); Need for influenza vaccination Social History Tobacco Use Types Packs/Day Years Used Date Smoking Tobacco: Former Cigarettes Smokeless Tobacco: Never Tobacco Cessation:Counseling Given: No Comments No Sex and Gender Information Value Date Recorded Sex Assigned at Not on file Legal Sex Female 1:02 AM INDUSTRIAL EQUIPMENT MECHANIC Gender Identity Not on file Sexual Orientation Not on file documented as of this encounter Last Filed Vital Signs Vital Sign Reading Time Taken Comments Blood Pressure 115/74 06/26/2019 10:47 AM INDUSTRIAL EQUIPMENT MECHANIC Pulse 100 06/26/2019 10:47 AM INDUSTRIAL EQUIPMENT MECHANIC Temperature 36.9 ??C (98.4 ??F) 06/26/2019 10:[address] Respiratory Rate 20 06/26/2019 10:47 AM INDUSTRIAL EQUIPMENT MECHANIC Oxygen Saturation 92% 06/26/2019 10:47 AM INDUSTRIAL EQUIPMENT MECHANIC Inhaled Oxygen Concentration - - Weight 111.6 kg (246 lb) 06/26/2019 10:47 AM INDUSTRIAL EQUIPMENT MECHANIC Height 157.5 cm (5' 2.01 ) 06/26/2019 10:[address] Body Mass Index 44.98 06/26/2019 10:47 AM INDUSTRIAL EQUIPMENT MECHANIC documented in this encounter Progress Notes * Zeeshan Rain MD - 06/26/2019 11:20 AM CST [facility] DEPARTMENT OF MEDICINE - MEDICAL ONCOLOGY [address] [place] [id number] PHONE: FAX: Medical Oncology Follow-up Note Oncology History DIAGNOSIS: 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 Tumor specimen demonstrates CD56, synaptophysin, cytokeratin, and TTF positivity. TREATMENT: 1. Concurrent chemoradiation with carboplatin and etoposide with radiation from 06/21/2017 to 08/03/2017, and chemotherapy from 05/28/2017 to 08/05/2017. 2. Prophylactic whole-brain radiation in 10 fractions from 09/13/2017 to 09/24/2017. Interval History: Gaby Morgan presents for a follow-up visit today, accompanied by her Fernandez. She continues to do well without new neurological or systemic symptoms. She continues to mention dyspnea intermittently with exertion, which is related to her underlying COPD. She continues to follow with a network security analyst and uses supplemental oxygen at night. She denies any systemic or neurological symptoms. Her performance status and weight are otherwise stable. Her recent PET scan does not demonstrate any evidence concerning for progression, and shows a few changes that are possibly inflammatory in etiology. PAST MEDICAL HISTORY: 1. COPD/asthma. 2. History of community-acquired pneumonia. 3. Radiographic findings of pulmonary hypertension on CT scan. SOCIAL HISTORY: She is currently retired. 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 She lives in [place], [place]. She quit smoking in 2008 but [...] medications. Allergies Allergen Reactions ??? Rosuvastatin Unknown Review of Systems: All other systems negative Vitals: BP: 115/74 Temp: 36.9 ??C (98.4 ??F) Temp src: Oral Pulse: 100 Resp: 20 SpO2: 92 % Height: 157.5 cm (5' 2.01 ) Weight: 111.6 kg (246 lb) Physical Exam: General: Alert, awake and oriented. Not in acute distress HEENT: sclerae anicteric, no pallor, mucous membranes moist, oropharynx clear Lymphatics: no cervical, axillary or supraclavicular adenopathy Chest: clear to auscultation bilaterally Heart: regular rate and rhythm. No murmurs. Abdomen: soft, non-tender. No organomegaly Extremities: no edema or erythema Neurologic: Alert, speech normal, no gross motor or sensory deficits noted Psychiatric exam: Appropriate affect Skin: no rashes or bruises ECO Lab Review: CBC: Lab Results Component Value Date/Time WBC 4.6 06/26/2019 10:20 AM HGB 13.3 06/26/2019 10:20 AM HCT 40.2 06/26/2019 10:20 AM MCV 94.2 06/26/2019 10:20 AM NEUTROABS 2.7 06/26/2019 10:20 AM CMP: Lab Results Component Value Date/Time SODIUM 141 06/26/2019 10:27 AM POTASSIUM 3.5 06/26/2019 10:27 AM CO2 32 06/26/2019 10:27 AM BUNSER 12 06/26/2019 10:27 AM GLUCOSE 116 06/26/2019 10:27 AM CREATININE 0.67 06/26/2019 10:27 AM CALCIUM 9.4 06/26/2019 10:27 AM CHLORIDE 100 06/26/2019 10:27 AM ALBUMIN 4.1 06/26/2019 10:27 AM AST 22 06/26/2019 10:27 AM ALT 24 06/26/2019 10:27 AM ALKPHOS 92 06/26/2019 10:27 AM BILITOT 0.4 06/26/2019 10:27 AM PROT 7.0 06/26/2019 10:27 AM ANIONGAP 9 06/26/2019 10:27 AM Radiology: IMPRESSION (PET/CT 06/23/19): 1. Resolution of intense FDG uptake in the central right upper lobe mass with post-radiation changes. No definite FDG evidence of disease recurrence or metastatic disease. ?? 2. Mild FDG avid focus associated with pulmonary nodules and a new area of atelectasis, likely representing an inflammatory/infectious process. Attention on subsequent imaging is recommended. Assessment and Plan: Gaby Morgan is a 68-year-old lady with limited stage small cell lung cancer for which she received concurrent chemoradiation followed by prophylactic cranial irradiation. Her scan today show no obvious evidence of progression as such. We obtained a PET-CT this time to better evaluate the volume loss and changes noted on her last CT scan. However there does not appear to be definitive evidence concerning for disease progression on this study. We will plan on seeing her back in [address] scan. She knows to contact us in the interim with any questions or concerns. She will continue to follow with her network security analyst for management of her COPD. Zeeshan Rain MD Garment Folderclod puller Division of Medical Oncology [facility] Please note: Commercial Real Estate Associate was completed by using M*Modal Fluency Direct speaking software, variances may therefore occur. STRIAL EQUIPMENT MECHANIC documented in this encounter Plan of Treatment Not on file documented as of this encounter Results * (ABNORMAL) CBC with auto differential (09/18/2019 10:29 AM INDUSTRIAL EQUIPMENT MECHANIC) WBC 7.2 3.8 - 9.8 K/cumm [facility] Comment:Testing performed by : [facility], [address] [place], [place] [id number] Hgb 14.4 12.1 - 15.1 g/dL [facility] Comment:Testing performed by : [place] [id number] Hct 43.3 36.1 - 44.3 % [facility] Comment:Testing performed by : [place] [id number] Plt 198 140 - 440 K/cumm [facility] Comment:Testing performed by : [place] [id number] MPV 8.3 6.8 - 10.4 fL [facility] Comment:Testing performed by : [place] [id number] RBC 4.60 3.90 - 5.00 M/cumm [facility] Comment:Testing performed by : [place] [id number] MCV 94.0 80.0 - 97.6 fL [facility] Comment:Testing performed by : [facility], [address] [place], [place] [id number] MCH 31.2 26.7 - 33.7 pg [facility] Comment:Testing performed by : [place] [id number] MCHC 33.2 32.7 - 35.5 g/dL [facility] Comment:Testing performed by : [address] [id number] RDW CV 14.4 11.8 - 14.6 % [facility] Comment:Testing performed by : [address] [place] [address] NRBC abs 0.02(H) 0.00 - 0.01 K/cumm [facility] Comment:Testing performed by : [facility], [facility] [address] Blood specimen (specimen) 09/18/2019 10:29 AM INDUSTRIAL EQUIPMENT MECHANIC 09/18/2019 10:29 AM INDUSTRIAL EQUIPMENT MECHANIC us Zeeshan Rain MD LAB BLOOD ORDERABLES F inal Result [facility] [place] [address] * (ABNORMAL) Comprehensive metabolic panel (09/18/2019 10:02 AM INDUSTRIAL EQUIPMENT MECHANIC) Sodium 143 135 - 145 mmol/L [facility] Potassium, pl 3.0(L) 3.3 - 4.9 mmol/L [facility] Chloride 98 97 - 110 mmol/L [facility] CO2 33(H) 22 - 32 mmol/L [facility] Anion gap 12 2 - 15 mmol/L [facility] BUN 14 8 - 25 mg/dL [facility] Creatinine 0.71 0.60 - 1.10 mg/dL [facility] Glucose 116 70 - 199 mg/dL [facility] Comment: Interpretive Data Fasting glucose [...] interpretive data was last revised 2017. Calcium 9.2 8.5 - 10.3 mg/dL [facility] Bilirubin, total 0.6 0.1 - 1.2 mg/dL [facility] Protein, pl 7.5 6.5 - 8.5 g/dL [facility] Albumin 4.3 3.5 - 5.0 g/dL [facility] Alk phos 87 40 - 130 Units/L [facility] ALT 26 7 - 45 Units/L [facility] AST 25 10 - 45 Units/L [facility] Blood specimen (specimen) 09/18/2019 10:02 AM INDUSTRIAL EQUIPMENT MECHANIC 09/18/2019 10:51 AM INDUSTRIAL EQUIPMENT MECHANIC us Zeeshan Rain MD LAB BLOOD ORDERABLES F inal Result [facility] [place] [address] * CT Chest Abdomen Pelvis W Contrast (09/15/2019 10:37 AM INDUSTRIAL EQUIPMENT MECHANIC) Anatomical Region Laterality Modality Body N/A Computed Tomogra phy 09/15/2019 11:0 3 AM INDUSTRIAL EQUIPMENT MECHANIC Impressions 09/15/2019 5:17 PM INDUSTRIAL EQUIPMENT MECHANIC 1. Stable post-treatment changes in the right upper and lower lobes without evidence of recurrent disease. 2. Unchanged 2 mm left upper lobe pulmonary nodule. Dictated by: Akil Seth M.D. The radiology attending physician has personally reviewed this study, and had reviewed and/or edited this written report and agrees with it. Electronically signed by: Nii Foote M.D. Narrative 09/15/2019 5:17 PM INDUSTRIAL EQUIPMENT MECHANIC EXAMINATION: ??Computed tomography of the chest, abdomen and pelvis with intravenous contrast HISTORY: Right upper lobe small cell lung cancer status post chemoradiation in 2017 TECHNIQUE: ??Transaxial computed tomographic images of the chest, abdomen and pelvis ??were obtained with intravenous contrast according to the standard protocol after the uneventful administration of 125 mL Opti-Ray 350 intravenous contrast. COMPARISON: 06/23/2019 PET/CT FINDINGS: ?? Chest: Redemonstrated are stable posttreatment changes of right upper and lower lobe radiation therapy. The right middle lobe is collapsed, unchanged. There is diffuse centrilobular emphysema. No pleural effusion or pneumothorax. A 2 mm left upper lobe nodule is unchanged (slice -468). Heart size is normal without pericardial effusion. No thoracic adenopathy. Heart size is normal. Abdomen/Pelvis: No liver lesion identified. The spleen, uterus, adrenal glands, common bile duct and urinary bladder are normal. No bowel obstruction. There is mild atherosclerosis of the abdominal vasculature. Gallstones are noted. No lymphadenopathy. No free fluid or gas. There are too small to characterize lesions in the kidneys which likely represent cysts. A hyperattenuating cyst is noted in the right kidney (slice -686). There is a fat-containing umbilical hernia. Bone windows demonstrate no suspicious lytic or blastic osseous lesions. Procedure Note Nii Foote MD - 09/15/2019 EXAMINATION: Computed tomography of the chest, abdomen and pelvis with intravenous contrast HISTORY: Right upper lobe small cell lung cancer status post chemoradiation in 2017 TECHNIQUE: Transaxial computed tomographic images of the chest, abdomen and pelvis were obtained with intravenous contrast according to the standard protocol after the uneventful administration of 125 mL Opti-Ray 350 intravenous contrast. COMPARISON: 06/23/2019 PET/CT FINDINGS: Chest: Redemonstrated are stable posttreatment changes of right upper and lower lobe radiation therapy. The right middle lobe is collapsed, unchanged. There is diffuse centrilobular emphysema. No pleural effusion or pneumothorax. A 2 mm left upper lobe nodule is unchanged (slice -468). Heart size is normal without pericardial effusion. No thoracic adenopathy. Heart size is normal. Abdomen/Pelvis: No liver lesion identified. The spleen, uterus, adrenal glands, common bile duct and urinary bladder are normal. No bowel obstruction. There is mild atherosclerosis of the abdominal vasculature. Gallstones are noted. No lymphadenopathy. No free fluid or gas. There are too small to characterize lesions in the kidneys which likely represent cysts. A hyperattenuating cyst is noted in the right kidney (slice -686). There is a fat-containing umbilical hernia. Bone windows demonstrate no suspicious lytic or blastic osseous lesions. IMPRESSION: 1. Stable post-treatment changes in the right upper and lower lobes without evidence of recurrent disease. 2. Unchanged 2 mm left upper lobe pulmonary nodule. Dictated by: Akil Seth M.D. The radiology attending physician has personally reviewed this study, and had reviewed and/or edited this written report and agrees with it. Electronically signed by: Nii S. Gierada, M.D. Zeeshan Rain MD IMG CT PROCEDURES Sada l Result documented in this encounter Visit Diagnoses Diagnosis Malignant neoplasm of upper lobe, right bronchus or lung (HCC)- Primary Need for influenza vaccination Need for prophylactic vaccination and inoculation against influenza Malignant neoplasm of upper lobe, right bronchus or lung (HCC) documented in this encounter Discontinued Medications Medication Sig Discontinue Reason Start Date End Da te predniSONE (DELTASONE) 5 mg tablet take 8 tabs (40 mg) for 3 days and decrease by 5 mg q 3 days 10/25/2017 06/26/2019 methylPREDNISolone (MEDROL DOSEPACK) 4 mg Dosepack TK UTD 01/18/2018 06/26/2019 documented as of this encounter Historical Medications * This list may reflect changes made after this encounter. cyanocobalamin (Vitamin B-12) 1,000 mcg tablet daily 03/08/20 2 3 oxyCODONE-acetam inophen (PERCOCET) 5-325 mg per tablet oxycodone-acetam inophen 5 mg-325 mg tablet 3 predniSONE (DELTASONE) 10 mg tablet pack prednisone 10 mg tablets in a dose pack Take by oral route. day 1: 60 mg, day2: 50mg, day3:40mg, day4: 30mg, day5:20mg, day6:10 then finished 3 added in this encounter Orders Immunization/Injection Count Last Ordered Date First Ordered Date FLU VACCINE MDCK QUAD PF 4Y+ IM - FLUCELVAX 1 06/26/2019 Appointment Requests Count Last Ordered Date Fi rst Ordered Date ONCBCN CLINIC APPOINTMENT REQUEST 2 020 06/26/2019 ONCBCN LAB APPOINTMENT 1 09/18/2019 documented in this encounter Care Teams Grommet Machine Operator Relationship Specialty Start Date End Date Paula Robles NP PCP - General 05/31/17 Zeeshan Rain MD Medical Oncologist/Signal Maintenance Technician Medical Oncology 02/11/18 08/23/22 Addy Mathur MD PhD [address] [place] [address] Radiation Oncologist Radiation Oncology 03/10/18 documented as of this encounter
--- OUTSIDE RECORDS SUMMARY | 2024-08-06 17:35 | XMS_ITS | Encounter Summary ---
Author Organization [facility] Address [address] [place] [address] Phone Care Team Providers Care Professional Golf Tournament Player Name Role Phone Travis Paula Knowles NP Primary Care Provider + Zeeshan Rain MD Unavailable [phone] [facility] Unavailable + [phone] Reason for Referral * Diagnostic Imaging (Routine) - Closed Specialty Diagnoses / Procedures Referred By Alan t Referred To Contact Radiology Diagnoses Malignant neoplasm of upper lobe, right bronchus or lung (HCC) Procedures PET/CT FDG Skull to Thigh Zeeshan Rain MD Phone: tel: fax: [address] [address] Referral ID Status Reason Start Date Expiration Date Visits Re quested Visits Authorized [id number] Closed 04/28/2019 11/06/2020 1 1 Encounter Details Date Type Department Care Team (Late st Contact Info) Description 05/01/2019 11:00 AM CDT Office Visit [facility] [address] 7th [place] [address] [place] [address] Zeeshan Rain MD [address] [facility] [address] [place] [address] Malignant neoplasm of upper lobe, right bronchus or lung (CMS/HCC) (Primary Dx) Social History Tobacco Use Types Packs/Day Years Used Date Smoking Tobacco: Former Cigarettes Smokeless Tobacco: Never Comments No Sex and Gender Information Value Date Recorded Sex Assigned at Not on file Legal Sex Female 1:02 AM MEDICAL RECORDS COORDINATOR Gender Identity Not on file Sexual Orientation Not on file documented as of this encounter Last Filed Vital Signs Vital Sign Reading Time Taken Comments Blood Pressure 130/83 05/01/2019 10:21 AM CDT Pulse 93 05/01/2019 10:21 AM CDT Temperature 37.1 ??C (98.8 ??F) 05/01/2019 1 0:21 AM CDT Respiratory Rate 20 05/01/2019 10:2 1 AM CDT Oxygen Saturation - - Inhaled Oxygen Concentration - - Weight 110.5 kg (243 lb 9.6 oz) 019 10:21 AM CDT Height - - Body Mass Index 44.56 06/09/2018 2:13 PM CDT documented in this encounter Progress Notes * Mily Reddy, ARTI - 05/01/2019 11:00 AM CDT [facility] DEPART[facility] MEDICINE - MEDICAL ONCOLOGY [address] [place] [phone] PHONE: FAX: Medical Oncology Follow-up Note Oncology History DIAGNOSIS: 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 Tumor specimen demonstrates CD56, synaptophysin, cytokeratin, and [...] She continues to mention dyspnea intermittently with exertion. She continues to follow with a nurse first aid and uses supplemental oxygen atnight. She denies any systemic or neurological symptoms. Her performance status and weight are otherwise stable. PAST MEDICAL HISTORY: 1. COPD/asthma. 2. History of community-acquired pneumonia. 3. Radiographic findings of pulmonary hypertension on CT scan. SOCIAL HISTORY: She is currently retired. 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 She lives in [place], [place]. She quit smoking in 2008 but [...] Systems: All other systems negative Vitals: BP: 130/83 Temp: 37.1 ??C (98.8 ??F) Temp src: Oral Pulse: 93 Resp: 20 Weight: 110.5 kg (243 lb 9.6 oz) Physical Exam: General: Alert, [...] CBC: Lab Results Component Value Date/Time WBC 4.7 05/01/2019 10:02 AM HGB 13.8 05/01/2019 10:02 AM HCT 41.4 05/01/2019 10:02 AM MCV 93.7 05/01/2019 10:02 AM NEUTROABS 2.6 05/01/2019 10:02 AM CMP: Lab Results Component Value Date/Time SODIUM 144 05/01/2019 10:02 AM POTASSIUM 3.6 05/01/2019 10:02 AM CO2 35 (H) 05/01/2019 10:02 AM BUNSER 14 05/01/2019 10:02 AM GLUCOSE 99 05/01/2019 10:02 AM CREATININE 0.68 05/01/2019 10:02 AM CALCIUM 9.7 05/01/2019 10:02 AM CHLORIDE 101 05/01/2019 10:02 AM ALBUMIN 4.3 05/01/2019 10:02 AM AST 21 05/01/2019 10:02 AM ALT 26 05/01/2019 10:02 AM ALKPHOS 89 05/01/2019 10:02 AM BILITOT 0.5 05/01/2019 10:02 AM PROT 7.3 05/01/2019 10:02 AM ANIONGAP 8 05/01/2019 10:02 AM Radiology: Mri Brain W Wo Contrast: 04/27/2019 No MR evidence of intracranial metastasis. Ct Chest Abdomen Pelvis W Contrast: 04/27/2019 Post radiation changes in the right lung with stable volume loss compared to most recent prior examination, slightly increased compared to study dated 12/01/2018. Continued attention on follow-up imaging is recommended. No CT evidence of metastatic disease in the abdomen or pelvis. Cholelithiasis. Assessment and Plan: Gaby Morgan is a 68-year-old lady with limited stage small cell lung cancer for which she received concurrent chemoradiation followed by prophylactic cranial irradiation. Her scan today show no obvious evidence of progression as such; however, the etiology of the increased volume loss and mildchanges in her CT scan is unclear at this time. I have discussed this with . Gaby Morgan andher . Therefore, we will get a restaging PET scan in 2 months, close- interval. She will callus in the interim for any questions, concerns, or worsening symptoms. She is agreeable with this plan of care. Mily Reddy DNP, ERECTING ENGINEER-[facility] Division of Oncology [facility] in [place] documented in this encounter Plan of Treatment Not on file documented as of this encounter Results * Comprehensive metabolic panel (06/26/2019 10:27 AM MEDICAL RECORDS COORDINATOR) Sodium 141 135 - 145 mmol/L [facility] Potassium, pl 3.5 3.3 - 4.9 mmol/L [facility] Chloride 100 97 - 110 mmol/L [facility] CO2 32 22 - 32 mmol/L [facility] Anion gap 9 2 - 15 mmol/L [facility] BUN 12 8 - 25 mg/dL [facility] Creatinine 0.67 0.60 - 1.10 mg/dL [facility] Glucose 116 70 - 199 mg/dL [facility] Comment: Interpretive Data Fasting glucose >/= [...] 2017. Calcium 9.4 8.5 - 10.3 mg/dL [facility] Bilirubin, total 0.4 0.1 - 1.2 mg/dL [facility] Protein, pl 7.0 6.5 - 8.5 g/dL [facility] Albumin 4.1 3.5 - 5.0 g/dL [facility] Alk phos 92 40 - 130 Units/L [facility] ALT 24 7 - 45 Units/L [facility] AST 22 10 - 45 Units/L [facility] Blood specimen (specimen) 06/26/2019 10:27 AM MEDICAL RECORDS COORDINATOR 06/26/2019 10:33 AM MEDICAL RECORDS COORDINATOR us Zeeshan Rain MD LAB BLOOD ORDERABLES F inal Result [facility] Department [place] [address] * CBC with auto differential (06/26/2019 10:20 AM MEDICAL RECORDS COORDINATOR) WBC 4.6 3.8 - 9.8 K/cumm [facility] Comment:Testing performed by : [facility], [address] [place] [address] Hgb 13.3 12.1 - 15.1 g/dL [facility] Comment:Testing performed by : [facility], [address] [place] [address] Hct 40.2 36.1 - 44.3 % [facility] Comment:Testing performed by : [facility], [address] [place] [address] Plt 195 140 - 440 K/cumm [facility] Comment:Testing performed by : [facility], [address] [place] [address] MPV 7.7 6.8 - 10.4 fL [facility] Comment:Testing performed by : [place] [address] RBC 4.26 3.90 - 5.00 M/cumm [facility] Comment:Testing performed by : [place] [address] MCV 94.2 80.0 - 97.6 fL [facility] Comment:Testing performed by : [facility], [address] [place] [address] MCH 31.1 26.7 - 33.7 pg [facility] Comment:Testing performed by : [place] [address] MCHC 33.0 32.7 - 35.5 g/dL [facility] Comment:Testing performed by : [place] [address] RDW CV 13.7 11.8 - 14.6 % [facility] Comment:Testing performed by : [place] [address] NRBC abs 0.00 0.00 - 0.01 K/cumm [facility] Comment:Testing performed by : [place] [address] Blood specimen (specimen) 06/26/2019 10:20 AM MEDICAL RECORDS COORDINATOR 06/26/2019 10:27 AM MEDICAL RECORDS COORDINATOR us Zeeshan Rain MD LAB BLOOD ORDERABLES F inal Result [facility] Department [place] [address] * PET/CT FDG Skull to Thigh (06/23/2019 11:33 AM MEDICAL RECORDS COORDINATOR) Anatomical Region Laterality Modality N/A Positron Emissio n Tomography (PET) 06/23/2019 1:36 PM MEDICAL RECORDS COORDINATOR Impressions 06/23/2019 4:32 PM MEDICAL RECORDS COORDINATOR 1. Resolution of intense FDG uptake in [...] Sohail Mariscal M.D. Narrative 06/23/2019 4:32 PM MEDICAL RECORDS COORDINATOR EXAMINATION: TUMOR FDG-PET/CT IMAGING DATE OF STUDY: [...] before injection of FDG, was 94 mg/dL. ??-Gastroview was given orally. ??After intravenous administration of FDG, noncontrast CT images were obtained for attenuation correction and for fusion with emission PET images to allow for anatomical localization of PET findings. ??Emission PET images were then obtained. ??The study was interpreted on the [employer] workstation. ??The mean liver SUV (reported for quality inspector purposes) is 2.8. ?? The total scanned [...] obtained. The study was interpreted on the [employer] workstation. The mean liver SUV (reported for quality inspector purposes) is 2.8. The total scanned area [...] Ordered Date [facility] CLINIC APPOINTMENT REQUEST 2 019 05/01/2019 [facility] LAB APPOINTMENT 1 06/26/2019 documented in this encounter Care Teams Professional Golf Tournament Player Relationship Specialty Start Date End Date Paula Robles NP PCP - General 05/31/17 Zeeshan Rain MD Medical Oncologist/Supervisor Metal Fabricating Medical Oncology 02/11/18 08/23/22 Addy Mathur MD PhD [address] [place] [address] Radiation Oncologist Radiation Oncology 03/10/18 documented as of this encounter
--- OUTSIDE RECORDS SUMMARY | 2024-08-06 17:35 | XMS_ITS | Encounter Summary ---
Author Organization [facility] Healthcare Address [address] [place] [address] Care Team Providers Care Associate Dean Of Students Name Role Phone Paula Robles Eleni BARK PEELER Primary Care Provider + Zeeshan Rain MD Unavailable [phone] Addy Mathur MD PhD Unavailable + [phone] Reason for Referral * Diagnostic Imaging (Routine) - Closed Specialty Diagnoses / Procedures Referred By Alan bangura Referred To Contact Radiology Diagnoses Malignant neoplasm of upper lobe, right bronchus or lung (HCC) Procedures MRI Brain W WO Contrast Zeeshan Rain MD Phone: tel: fax: [address] [address] Referral ID Status Reason Start Date Expiration Date Visits Re quested Visits Authorized [id number] Closed 09/18/2019 03/29/2021 1 1 Reason for Visit * Diagnostic Imaging (Routine) - Closed Specialty Diagnoses / Procedures Referred By Alan bangura Referred To Contact Radiology Diagnoses Malignant neoplasm of upper lobe, right bronchus or lung (HCC) Procedures MRI Brain W WO Contrast Zeeshan Rain MD Phone: tel: fax: [address] [facility] [place] [address] Referral ID Status Reason Start Date Expiration Date Visits Re quested Visits Authorized [id number] Closed 09/18/2019 03/29/2021 1 1 Encounter Details Date Type Department Care Team (Latest Contact Info) Description 01/11/2020 9:51 AM CDT - 01/11/2020 11:59 PM CDT Hospital Encounter [facility] [place] [address] Zeeshan Rain MD [address] [place] [address] Malignant neoplasm of upper lobe, right bronchus or lung (CMS/HCC) Discharge Disposition: Discharge to home or self care Social History Tobacco Use Types Packs/Day Years Used Date Smoking Tobacco: Former Cigarettes Smokeless Tobacco: Never Comments No Sex and Gender Information Value Date Recorded Sex Assigned at Not on file 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 The radiology attending physician has personally reviewed this study, and had reviewed and/or edited this written report and agrees with it. Electronically signed by: Isaiah Mendez M.D. 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 TECHNIQUE: Multiplanar multi-weighted MRI of the brain and brainstem was performed without and with intravenous contrast using the general brain protocol. Contrast information: 20 mL Dotarem COMPARISON: None available. 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 The scalp and calvarium are normal. ?? [...] no evidence of acute or chronic hemorrhage. ??Ex vacuo dilation of the ventricles with atrophy. There are no areas of abnormal contrast enhancement. The paranasal sinuses are normal. ??The visualized portions of the mastoids are unremarkable. ??The orbits appear normal. ??Normal flow voids are demonstrated in the carotid arteries and basilar artery. 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 TECHNIQUE: Multiplanar multi-weighted MRI of the brain and brainstem was performed without and with intravenous contrast using the general brain protocol. Contrast information: 20 mL Dotarem COMPARISON: None available. 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 The scalp and calvarium are normal. The [...] no evidence of acute or chronic hemorrhage. Ex vacuo dilation of the ventricles with atrophy. There are no areas of abnormal contrast enhancement. The paranasal sinuses are normal. The visualized portions of the mastoids are unremarkable. The orbits appear normal. Normal flow voids are demonstrated in the carotid arteries and basilar artery. IMPRESSION: No evidence of metastatic disease in the brain Dictated by: Antonio Hernandez M.D. The radiology attending physician has personally reviewed this study, and had reviewed and/or edited this written report and agrees with it. Electronically signed by: Isaiah Mendez M.D. Zeeshan Rain MD IM MRI PROCEDURES Fin al Result * POCT creatinine (01/11/2020 10:05 AM CDT) Creatinine POC 0.7 0.6 - 1.1 mg/dL [facility] Blood specimen (specimen) 01/11/2020 10:05 AM CDT 01/11/2020 10:05 AM CDT us Zeeshan Rain MD LAB POCT ORDERABLES - DEVICE Final Result [facility] Department [place] [address] documented in this encounter Visit Diagnoses Diagnosis Malignant neoplasm of upper lobe, right bronchus or lung (HCC) documented in this encounter Administered Medications Inactive Administered Medications - up to 3 most recent administrations Medication Order MAR Action Action Date Dose Rate Site gadoterate meglumine (DOTAREM) 0.5 mmol/mL injection 20 mL 20 mL, intravenous, Once in imaging, contrast, Starting on La 01/11/20 at 1124, For 1 dose Given 01/11/2020 11:28 AM CDT 2 mL gadoterate meglumine (DOTAREM) 0.5 mmol/mL injection 20 mL 20 mL, intravenous, Once in imaging, contrast, Starting on La 01/11/20 at 1126, For 1 dose Given 01/11/2020 11:28 AM CDT 20 mL documented in this encounter Orders Medications Ordered That Adam ht Not Have Been Administered Count Last Ordered Date First Ordered Date gadoterate meglumine (DOTARE M) 0.5 mmol/mL injection 20 mL 1 01/11/2020 documented in this encounter Care Teams Associate Dean Of Students Relationship Specialty Start Date End Date Paula Robles NP PCP - General 05/31/17 Zeeshan Rain MD Medical Oncologist/Tube Bender Hand Medical Oncology 02/11/18 08/23/22 Addy Mathur MD PhD [address] [place] [address] Radiation Oncologist Radiation Oncology 03/10/18 documented as of this encounter
--- OUTSIDE RECORDS SUMMARY | 2024-08-06 17:35 | XMS_ITS | Encounter Summary ---
Author Organization [facility] Healthcare Address [address] [place] [address] Care Team Providers Care Human Resources Trainee Name Role Phone Travis Paula Eleni MICROBIOLOGICAL LABORATORY TECHNICIAN Primary Care Provider + Zeeshan Rain MD Unavailable [phone] Addy Mathur MD PhD Unavailable [phone] Reason for Referral * (Routine) - Closed Specialty Diagnoses / Procedures Referred By Contac t Referred To Contact Diagnoses Pulmonary hypertension (HCC) Procedures Transthoracic Echo Complete W Doppler/CF Ally De Dios MD Phone: tel:[phone] fax: [address] [address] Referral ID Status Reason Start Date Expiration Date Visits Re quested Visits Authorized [id number] Closed 03/18/2020 04/17/2021 1 1 Reason for Visit * (Routine) - Closed Specialty Diagnoses / Procedures Referred By Contapril t Referred To Contact Diagnoses Pulmonary hypertension (HCC) Procedures Transthoracic Echo Complete W Doppler/CF Ally De Dios MD Phone: tel:[phone] fax: [address] [address] Referral ID Status Reason Start Date Expiration Date Visits Re quested Visits Authorized [id number] Closed 03/18/2020 04/17/2021 1 1 Encounter Details Date Type Department Care Team (Latest Contact Info) Description 04/18/2020 10:15 AM CDT - 04/18/2020 11:59 PM CDT Hospital Encounter [facility] Cardiac Diagnostic Lab [address] [facility] [address]th [place] [address] Ally De Dios MD [address] [facility] [address] [place] [address] Pulmonary hypertension (CMS/HCC) Discharge Disposition: Discharge to home or self care Social History Tobacco Use Types Packs/Day Years Used Date Smoking Tobacco: Former Cigarettes Smokeless Tobacco: Never Comments No Sex and Gender Information Value Date Recorded Sex Assigned at Not on file 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 Gender Identity Not on file Sexual [...] Procedure Name Priority Date/Time Associated Diagnosis Comments TRANSTHORACIC ECHO (TTE) COMPLETE W DOPPLER/CF WO CONTRAST Routine 04/18/2020 12:18 PM CDT Pulmonary hypertension (CMS/HCC) documented in this encounter Results * TRANSTHORACIC ECHO (TTE) COMPLETE W DOPPLER/CF WO CONTRAST (04/18/2020 12:18 PM CDT) Anatomical Region Laterality Modality Ultrasound 04/18/2020 10:3 0 AM CDT Narrative 04/19/2020 8:12 AM CDT Patient name: Gaby Morgan Date of test: 04/18/2020 Type of test: TTE w/Doppler [facility] #: [id number] Date of : 1950 (F) Oil Burner Journeyman: Alvin Bartholomew RDCS Referring Physician: ALLY DE DIOS MD Contrast Agent: Unable to obtain IV access for contrast administration. Contrast Administered by: Supervised/Interpreted by: Rasheed Delgadillo MD Diagnosis: Location: [facility] Reason for test: Possible Pulmonary [...] 2=Hypo 3=Akinetic 4=Dyskin./Aneurysm 0=Not visualized) Parasternal Long [place]:MAS=1 BAS=1 MIL=1 LOCO=1 Parasternal Short [place]:MAS=1 MIS=1 TN=1 MIL=1 MAL=1 MA=1 Apical 4 Chambers:=1 MIS=1 BIS=1 BAL=1 MAL=1 AL=1 AC=1 Apical 2 Chambers:AI=1 TN=1 BI=1 BA=1 MA=1 AA=1 AC=1 LV Global [...] MD By signing this report, the attending university internship certifies that he or she has personally supervised and interpreted the echocardiogram and has reviewed and or edited and agrees with the written comments contained within the report. Procedure Note Rasheed Delgadillo MD - 04/19/2020 Patient name: Gaby Morgan Date of test: 04/18/2020 Type of test: [facility] #: [id number] Date of : 1950 (F) Oil Burner Journeyman: Alvin Bartholomew DARSHANA Referring Physician: ALLY DE DIOS MD Contrast Agent: Unable to obtain IV access for contrast administration. Contrast Administered by: Supervised/Interpreted by: Rasheed Delgadillo MD Diagnosis: Location: [facility] Reason for test: Possible Pulmonary [...] 2=Hypo 3=Akinetic 4=Dyskin./Aneurysm 0=Not visualized) Parasternal Long [place]:MAS=1 BAS=1 MIL=1 LOCO=1 Parasternal Short [place]:MAS=1 MIS=1 TN=1 MIL=1 MAL=1 MA=1 Apical 4 Chambers:=1 MIS=1 BIS=1 BAL=1 MAL=1 AL=1 AC=1 Apical 2 Chambers:AI=1 TN=1 BI=1 BA=1 MA=1 AA=1 AC=1 LV Global [...] MD By signing this report, the attending university internship certifies that he or she has personally supervised and interpreted the echocardiogram and has reviewed and or edited and agrees with the written comments contained within the report. Result [facility] Ally De Dios MD CV ECHO PROCEDURES Fin al Result documented in this encounter Visit Diagnoses Diagnosis Pulmonary hypertension (HCC) Other chronic pulmonary heart diseases documented in this encounter Orders Medications Ordered That Adam ht Not Have Been Administered Count Last Ordered Date First Ordered Date perflutren protein-a (OPTISO N) 3 mL in sodium chloride 0.9% 8 mL syringe 1 04/18/2020 documented in this encounter Care Teams Human Resources Trainee Relationship Specialty Start Date End Date Paula Robles NP PCP - General 05/31/17 Zeeshan Rain MD Medical Oncologist/Still Tender Medical Oncology 02/11/18 08/23/22 Addy Mathur MD PhD [address] [place] [address] Radiation Oncologist Radiation Oncology 03/10/18 documented as of this encounter
--- OUTSIDE RECORDS SUMMARY | 2024-08-06 17:35 | XMS_ITS | Encounter Summary ---
Author Organization [facility] Address [address] [place] [address] Phone Care Team Providers Care Sales Strategy Manager Name Role Phone Travis Paula Knowles NP Primary Care Provider + Zeeshan Rain MD Unavailable [phone] Addy Mathur MD PhD Unavailable + [phone] Encounter Details Date Type Department Care Team (Late st Contact Info) Description 05/01/2019 10:00 AM CDT Lab [facility] Oncology [address] 7th [place] [address] [place] [address] Malignant neoplasm of upper lobe, right bronchus or lung (CMS/HCC) Social History Tobacco Use Types Packs/Day Years Used Date Smoking Tobacco: Former Cigarettes Smokeless Tobacco: Never Comments No Sex and Gender Information Value Date Recorded Sex Assigned at Not on file 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 Gender Identity Not on file Sexual Orientation Not on file documented as of this encounter Plan of Treatment Not on file documented as of this encounter Procedures Procedure Name Priority Date/Time Associated Diagnosis Comments DIFFERENTIAL AUTO Routine 05/01/2019 10: 02 AM CDT Malignant neoplasm of upper lobe, right bronchus or lung (CMS/HCC) CBC WITH AUTO DIFFERENTIAL Routine 05/01/2019 10:02 AM CDT Malignant neoplasm of upper lobe, right bronchus or lung (CMS/HCC) COMPREHENSIVE METABOLIC PANEL STAT 05/01/2019 10:02 AM CDT Malignant neoplasm of upper lobe, right bronchus or lung (CMS/HCC) documented in this encounter Results * Differential, auto (05/01/2019 10:02 AM CDT) Neutrophil abs 2.6 1.8 - 6.6 K/cumm [facility] Comment:Testing performed by : [facility], [address] [place] [phone] Lymphocyte abs 1.5 1.2 - 3.3 K/cumm [facility] Comment:Testing performed by : [facility], [address] [place] [phone] Monocyte abs 0.4 0.2 - 1.2 K/cumm [facility] Comment:Testing performed by : [facility], [address] [place] [phone] Eosinophil abs 0.2 0.0 - 0.5 K/cumm [facility] Comment:Testing performed by : [facility], [address] [place] [phone] Basophil abs 0.1 0.0 - 0.2 K/cumm [facility] Comment:Testing performed by : [facility], [address] [place] [phone] Neutrophil pct 56.5 % [facility] Comment: Interpretive Data Percent cell count reference ranges are not reported, since discordance with absolute values may lead to misinterpretation of CBC data. Current Interpretive Data was last revised on 2017. Testing performed by: [facility], [address] [place] [phone] Lymphocyte pct 31.5 % [facility] Comment: Interpretive Data Percent cell count reference ranges are not reported, since discordance with absolute values may lead to misinterpretation of CBC data. Current Interpretive Data was last revised on 2017. Testing performed by: [facility], [address] [place] [phone] Monocyte pct 7.5 % [facility] Comment:Testing performed by : [facility], [address] [place] [phone] Eosinophil pct 3.4 % [facility] Comment:Testing performed by : [facility], [address] [place] [phone] Basophil pct 1.1 % [facility] Comment:Testing performed by : [facility], [address] [place] [phone] Blood specimen (specimen) 05/01/2019 10:02 AM CDT 05/01/2019 10:02 AM CDT us Zeeshan Rain MD LAB BLOOD ORDERABLES F inal Result [facility] [address] [place] [address] * CBC with auto differential (05/01/2019 10:02 AM CDT) WBC 4.7 3.8 - 9.8 K/cumm [facility] Comment:Testing performed by : [facility], [address] [place] [phone] Hgb 13.8 12.1 - 15.1 g/dL [facility] Comment:Testing performed by : [facility], [address] [place] [phone] Hct 41.4 36.1 - 44.3 % [facility] Comment:Testing performed by : [address] [phone] Plt 207 140 - 440 K/cumm [facility] Comment:Testing performed by : [facility], [address] [place] [phone] MPV 7.5 6.8 - 10.4 fL [facility] Comment:Testing performed by : [facility], [address] [place] [phone] RBC 4.42 3.90 - 5.00 M/cumm [facility] Comment:Testing performed by : [address] [phone] MCV 93.7 80.0 - 97.6 fL [facility] Comment:Testing performed by : [facility], [address] [place] [phone] MCH 31.3 26.7 - 33.7 pg [facility] Comment:Testing performed by : [facility], [address] [place] [phone] MCHC 33.4 32.7 - 35.5 g/dL [facility] Comment:Testing performed by : [facility], [address] [place] [phone] RDW CV 13.9 11.8 - 14.6 % [facility] Comment:Testing performed by : [facility], [address] [place] [phone] NRBC abs 0.00 0.00 - 0.01 K/cumm [facility] Comment:Testing performed by : [facility], [address] [place] [phone] Blood specimen (specimen) 05/01/2019 10:02 AM CDT 05/01/2019 10:02 AM CDT Zeeshan Rain MD LAB BLOOD ORDERABLES F inal Result [facility] [address] [place] [address] * (ABNORMAL) Comprehensive metabolic panel (05/01/2019 10:02 AM CDT) Sodium 144 135 - 145 mmol/L [facility] Potassium, pl 3.6 3.3 - 4.9 mmol/L [facility] Chloride 101 97 - 110 mmol/L [facility] CO2 35(H) 22 - 32 mmol/L [facility] Anion gap 8 2 - 15 mmol/L [facility] BUN 14 8 - 25 mg/dL [facility] Creatinine 0.68 0.60 - 1.10 mg/dL [facility] Glucose 99 70 - 199 mg/dL [facility] Comment: Interpretive Data Fasting glucose >/= [...] interpretive data was last revised 2017. Calcium 9.7 8.5 - 10.3 mg/dL [facility] Bilirubin, total 0.5 0.1 - 1.2 mg/dL [facility] Protein, pl 7.3 6.5 - 8.5 g/dL [facility] Albumin 4.3 3.5 - 5.0 g/dL [facility] Alk phos 89 40 - 130 Units/L [facility] ALT 26 7 - 45 Units/L [facility] AST 21 10 - 45 Units/L [facility] Blood specimen (specimen) 05/01/2019 10:02 AM CDT 05/01/2019 10:23 AM CDT us Zeeshan Rain MD LAB BLOOD ORDERABLES F inal Result [facility] [address] [place] [address] documented in this encounter Visit Diagnoses Diagnosis Malignant neoplasm of upper lobe, right bronchus or lung (HCC) documented in this encounter Orders Appointment Requests Count Last Ordered Date Fi rst Ordered Date ONCBCN LAB APPOINTMENT 1 05/01/2019 documented in this encounter Care Teams Sales Strategy Manager Relationship Specialty Start Date End Date Paula Robles NP PCP - General 05/31/17 Zeeshan Rain MD Medical Oncologist/Bi Tri Operator Medical Oncology 02/11/18 08/23/22 Addy Mathur MD PhD [address] [place] [address] Radiation Oncologist Radiation Oncology 03/10/18 documented as of this encounter
--- OUTSIDE RECORDS SUMMARY | 2024-08-06 17:35 | XMS_ITS | Encounter Summary ---
Author Organization [facility] Address [address] [place] [address] Phone Care Team Providers Care Web Marketing Assistant Name Role Phone Travis Paula Knowles NP Primary Care Provider + Zeeshan Rain MD Unavailable [phone] Addy Mathur MD PhD Unavailable + [phone] Encounter Details Date Type Department Care Team (Late st Contact Info) Description 09/18/2019 10:00 AM PRINTED CIRCUIT BOARD ASSEMBLY REPAIRER Lab [facility] Oncology [address] 7th [place] [address] Malignant neoplasm of upper lobe, right bronchus or lung (CMS/HCC) Social History Tobacco Use Types Packs/Day Years Used Date Smoking Tobacco: Former Cigarettes Smokeless Tobacco: Never Comments No Sex and Gender Information Value Date Recorded Sex Assigned at Not on file Legal Sex Female 1:02 AM PRINTED CIRCUIT BOARD ASSEMBLY REPAIRER Gender Identity Not on file Sexual Orientation Not on file documented as of this encounter Plan of Treatment Not on file documented as of this encounter Procedures Procedure Name Priority Date/Time Associated Diagnosis Comments MORPHOLOGIC SCREEN Routine 09/18/2019 10 :29 AM PRINTED CIRCUIT BOARD ASSEMBLY REPAIRER Malignant neoplasm of upper lobe, right bronchus or lung (CMS/HCC) DIFFERENTIAL AUTO Routine 09/18/2019 10: 29 AM PRINTED CIRCUIT BOARD ASSEMBLY REPAIRER Malignant neoplasm of upper lobe, right bronchus or lung (CMS/HCC) CBC WITH AUTO DIFFERENTIAL Routine 09/18/2019 10:29 AM PRINTED CIRCUIT BOARD ASSEMBLY REPAIRER Malignant neoplasm of upper lobe, right bronchus or lung (CMS/HCC) COMPREHENSIVE METABOLIC PANEL STAT 09/18/2019 10:02 AM PRINTED CIRCUIT BOARD ASSEMBLY REPAIRER Malignant neoplasm of upper lobe, right bronchus or lung (CMS/HCC) documented in this encounter Results * Morphologic screen (09/18/2019 10:29 AM PRINTED CIRCUIT BOARD ASSEMBLY REPAIRER) Pathologist [facility] Morphologic Screen Original results obtained required verification by peripheral smear. [facility] Blood specimen (specimen) 09/18/2019 10:29 AM PRINTED CIRCUIT BOARD ASSEMBLY REPAIRER 09/18/2019 10:36 AM PRINTED CIRCUIT BOARD ASSEMBLY REPAIRER Zeeshan Rain MD LAB BLOOD ORDERABLES F inal Result [facility] Department [place] [address] * Differential, auto (09/18/2019 10:29 AM PRINTED CIRCUIT BOARD ASSEMBLY REPAIRER) [facility] Neutrophil abs 4.0 1.8 - 6.6 K/cumm [facility] Comment:Testing performed by : [facility], [address] [place] [phone] Lymphocyte abs 2.5 1.2 - 3.3 K/cumm [facility] Comment:Testing performed by : [facility], [address] [place] [phone] Monocyte abs 0.4 0.2 - 1.2 K/cumm [facility] Comment:Testing performed by : [facility], [address] [place] [phone] Eosinophil abs 0.2 0.0 - 0.5 K/cumm [facility] Comment:Testing performed by : [facility], [address] [place] [phone] Basophil abs 0.1 0.0 - 0.2 K/cumm [facility] Comment:Testing performed by : [facility], [address] [place] [phone] Neutrophil pct 55.0 % [facility] Comment: Interpretive Data Percent cell count reference ranges are not reported, since discordance with absolute values may lead to misinterpretation of CBC data. Current Interpretive Data was last revised on 2017. Testing performed by: [facility], [address] [place] [phone] Lymphocyte pct 35.0 % [facility] Comment: Interpretive Data Percent cell count reference ranges are not reported, since discordance with absolute values may lead to misinterpretation of CBC data. Current Interpretive Data was last revised on 2017. Testing performed by: [facility], [address] [place] [phone] Monocyte pct 6.2 % [facility] Comment:Testing performed by : [facility], [address] [place] [phone] Eosinophil pct 2.8 % [facility] Comment:Testing performed by : [facility], [address] [place] [phone] Basophil pct 1.0 % [facility] Comment:Testing performed by : [facility], [address] [place] [phone] Blood specimen (specimen) 09/18/2019 10:29 AM PRINTED CIRCUIT BOARD ASSEMBLY REPAIRER 09/18/2019 10:29 AM PRINTED CIRCUIT BOARD ASSEMBLY REPAIRER us Zeeshan Rain MD LAB BLOOD ORDERABLES F inal Result [facility] Department [place] [address] * (ABNORMAL) CBC with auto differential (09/18/2019 10:29 AM PRINTED CIRCUIT BOARD ASSEMBLY REPAIRER) WBC 7.2 3.8 - 9.8 K/cumm [facility] Comment:Testing performed by : [facility], [address] [place] [phone] Hgb 14.4 12.1 - 15.1 g/dL [facility] Comment:Testing performed by : [facility], [address] [place] [phone] Hct 43.3 36.1 - 44.3 % [facility] Comment:Testing performed by : [facility], [address] [place], [place] [phone] Plt 198 140 - 440 K/cumm [facility] Comment:Testing performed by : [facility], [address] [place], [place] [phone] MPV 8.3 6.8 - 10.4 fL [facility] Comment:Testing performed by : [facility], [address] [place], [place] [phone] RBC 4.60 3.90 - 5.00 M/cumm [facility] Comment:Testing performed by : [facility], [address] [place], [place] [phone] MCV 94.0 80.0 - 97.6 fL [facility] Comment:Testing performed by : [facility], [address] [place], [place] [phone] MCH 31.2 26.7 - 33.7 pg [facility] Comment:Testing performed by : [facility], [address] [place], [place] [phone] MCHC 33.2 32.7 - 35.5 g/dL [facility] Comment:Testing performed by : [facility], [address] [place], [place] [phone] RDW CV 14.4 11.8 - 14.6 % [facility] Comment:Testing performed by : [address] [phone] NRBC abs 0.02(H) 0.00 - 0.01 K/cumm [facility] Comment:Testing performed by : [facility], [address] [place] [phone] Blood specimen (specimen) 09/18/2019 10:29 AM PRINTED CIRCUIT BOARD ASSEMBLY REPAIRER 09/18/2019 10:29 AM PRINTED CIRCUIT BOARD ASSEMBLY REPAIRER us Zeeshan Rain MD LAB BLOOD ORDERABLES F inal Result [facility] Department [place] [address] * (ABNORMAL) Comprehensive metabolic panel (09/18/2019 10:02 AM PRINTED CIRCUIT BOARD ASSEMBLY REPAIRER) Sodium 143 135 - 145 mmol/L [facility] Potassium, pl 3.0(L) 3.3 - 4.9 mmol/L [facility] Chloride 98 97 - 110 mmol/L [facility] CO2 33(H) 22 - 32 mmol/L [facility] Anion gap 12 2 - 15 mmol/L [facility] BUN 14 8 - 25 mg/dL [facility] Creatinine 0.71 0.60 - 1.10 mg/dL [facility] Glucose 116 70 - 199 mg/dL [facility] Comment: Interpretive Data Fasting [...] 2017. Calcium 9.2 8.5 - 10.3 mg/dL [facility] Bilirubin, total 0.6 0.1 - 1.2 mg/dL [facility] Protein, pl 7.5 6.5 - 8.5 g/dL [facility] Albumin 4.3 3.5 - 5.0 g/dL [facility] Alk phos 87 40 - 130 Units/L [facility] ALT 26 7 - 45 Units/L [facility] AST 25 10 - 45 Units/L [facility] Blood specimen (specimen) 09/18/2019 10:02 AM PRINTED CIRCUIT BOARD ASSEMBLY REPAIRER 09/18/2019 10:51 AM PRINTED CIRCUIT BOARD ASSEMBLY REPAIRER us Zeeshan Rain MD LAB BLOOD ORDERABLES F inal Result [facility] Department [place] [address] documented in this encounter Visit Diagnoses Diagnosis Malignant neoplasm of upper lobe, right bronchus or lung (HCC) documented in this encounter Orders Appointment Requests Count Last Ordered Date Fi rst Ordered Date ONCBCN LAB APPOINTMENT 1 09/18/2019 documented in this encounter Care Teams Web Marketing Assistant Relationship Specialty Start Date End Date Paula Robles NP PCP - General 05/31/17 Zeeshan Rain MD Medical Oncologist/Cut Off Tender Glass Medical Oncology 02/11/18 08/23/22 Addy Mathur MD PhD [address] [place] [address] Radiation Oncologist Radiation Oncology 03/10/18 documented as of this encounter
--- OUTSIDE RECORDS SUMMARY | 2024-08-06 17:35 | XMS_ITS | Encounter Summary ---
Author Organization [facility] Healthcare Address [address] [place] [address] Care Team Providers Care Milk Wagon Driver Name Role Phone ShermanPaula joseph Eleni FISHERMAN HELPER Primary Care Provider + Zeeshan Rain MD Unavailable [phone] Addy Mathur MD PhD Unavailable + [phone] Reason for Referral * Diagnostic Imaging (Routine) - Closed Specialty Diagnoses / Procedures Referred By Alan bangura Referred To Contact Radiology Diagnoses Malignant neoplasm of upper lobe, right bronchus or lung (HCC) Procedures CT Chest Abdomen Pelvis W Contrast Zeeshan Rain MD Phone: tel: fax: [address] [address] Referral ID Status Reason Start Date Expiration Date Visits Re quested Visits Authorized [id number] Closed 09/18/2019 03/29/2021 1 1 Reason for Visit * Diagnostic Imaging (Routine) - Closed Specialty Diagnoses / Procedures Referred By Alan bangura Referred To Contact Radiology Diagnoses Malignant neoplasm of upper lobe, right bronchus or lung (HCC) Procedures CT Chest Abdomen Pelvis W Contrast Zeeshan Rain MD Phone: tel: fax: [place] [address] [facility] [place] [address] Referral ID Status Reason Start Date Expiration Date Visits Re quested Visits Authorized [id number] Closed 09/18/2019 03/29/2021 1 1 Encounter Details Date Type Department Care Team (Latest Contact Info) Description 01/11/2020 9:51 AM CDT - 01/11/2020 11:59 PM CDT Hospital Encounter [facility] [place] [address] Zeeshan Rain MD [address] [place] [address] Malignant neoplasm of upper lobe, right bronchus or lung (CMS/HCC) Discharge Disposition: Discharge to home or self care Social History Tobacco Use Types Packs/Day Years Used Date Smoking Tobacco: Former Cigarettes Smokeless Tobacco: Never Comments No Sex and Gender Information Value Date Recorded Sex Assigned at Not on file Legal Sex Female 1:02 AM LIVING SPECIALIST Gender Identity Not on file Sexual Orientation [...] Schedule Routine, Read Routine (OP Routine) 01/11/2020 10:33 AM CDT Malignant neoplasm of upper lobe, right bronchus or lung (CMS/HCC) documented in this encounter Results * CT Chest Abdomen Pelvis W Contrast (01/11/2020 10:33 AM CDT) Anatomical Region Laterality Modality Body N/A Computed Tomogra phy 01/11/2020 12:0 0 PM CDT Impressions 01/11/2020 1:20 PM CDT 1. ??Stable post treatment changes in the right upper and lower lobes with unchanged collapse of the right middle lobe. 2. ??Stable sub 5 mm nodules in the left upper lobe. 3 ??No evidence of metastatic disease in the abdomen or pelvis. 4. ??Mildly enlarged main pulmonary artery can be seen in setting of pulmonary hypertension. 5. ??Periportal widening and subtle hepatic nodularity can be seen in cirrhosis. Dictated by: Alison Reeves M.D. The radiology attending physician has personally reviewed this study, and had reviewed and/or edited this written report and agrees with it. Electronically signed by: Hazel Cabello M.D. 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 COMPARISON: 09/15/2019 FINDINGS: ?? Chest: Again seen are posttreatment changes in the right upper and right lower lobes. ??The right middle lobe collapse is unchanged. ??There is volume loss on the right and unchanged rightward mediastinal shift. There is mosaicism in the left lower lobe is unchanged. ??There is a stable 3 mm groundglass nodule in the left upper lobe and a stable 2 mm nodule in the left upper lobe (59/152). There is no pleural effusion or pneumothorax. ??Heart is normal in size. ??There is no pericardial effusion. ??There is no supraclavicular, axillary, mediastinal or hilar lymphadenopathy. The main pulmonary artery as well as the left and right main branches are mildly dilated. Abdomen/Pelvis: Spleen, bilateral adrenal glands are normal. ??There is fatty atrophy of the pancreas. ??Stones are seen in the gallbladder without evidence of acute cholecystitis. There is no focal suspicious hepatic lesion. ??There is no intra or extra hepatic biliary duct dilatation. ??The portal vein is patent. There is periportal widening and subtle hepatic nodularity. Hypoattenuating lesion in the right kidney is too small to characterize. ??An additional hyperdense lesion in the right kidney may represent a proteinaceous or hemorrhagic cyst. ??There is no hydronephrosis. ??Bladder is decompressed. ??Uterus is normal. ??No adnexal masses are identified. There is sigmoid diverticulosis without evidence of acute diverticulitis. ??The small bowel and colon are normal in caliber without evidence of inflammation or obstruction. ??The appendix is normal. There is intracranial free fluid or free air. ??There is no abdominal or pelvic adenopathy. ??There is a moderate-sized fat-containing umbilical hernia. ??There is mild atherosclerotic calcification of the abdominal aorta and its branch vessels. Multilevel degenerative changes seen throughout the visualized spine. There is no suspicious lytic or blastic osseous lesion. Procedure Note Hazel Cabello MD - 01/11/2020 EXAMINATION: Computed tomography of the chest, abdomen and pelvis with intravenous contrast HISTORY: Small cell lung cancer status post chemoradiation in 2017 TECHNIQUE: Transaxial computed tomographic images of the chest, abdomen and pelvis were obtained with intravenous contrast according to the standard protocol after the uneventful administration of 125 mL Opti-Ray 350 intravenous contrast. COMPARISON: 09/15/2019 FINDINGS: Chest: Again seen are posttreatment changes in the right upper and right lower lobes. The right middle lobe collapse is unchanged. There is volume loss on the right and unchanged rightward mediastinal shift. There is mosaicism in the left lower lobe is unchanged. There is a stable 3 mm groundglass nodule in the left upper lobe and a stable 2 mm nodule in the left upper lobe (59/152). There is no pleural effusion or pneumothorax. Heart is normal in size. There is no pericardial effusion. There is no supraclavicular, axillary, mediastinal or hilar lymphadenopathy. The main pulmonary artery as well as the left and right main branches are mildly dilated. Abdomen/Pelvis: Spleen, bilateral adrenal glands are normal. There is fatty atrophy of the pancreas. Stones are seen in the gallbladder without evidence of acute cholecystitis. There is no focal suspicious hepatic lesion. There is no intra or extra hepatic biliary duct dilatation. The portal vein is patent. There is periportal widening and subtle hepatic nodularity. Hypoattenuating lesion in the right kidney is too small to characterize. An additional hyperdense lesion in the right kidney may represent a proteinaceous or hemorrhagic cyst. There is no hydronephrosis. Bladder is decompressed. Uterus is normal. No adnexal masses are identified. There is sigmoid diverticulosis without evidence of acute diverticulitis. The small bowel and colon are normal in caliber without evidence of inflammation or obstruction. The appendix is normal. There is intracranial free fluid or free air. There is no abdominal or pelvic adenopathy. There is a moderate-sized fat-containing umbilical hernia. There is mild atherosclerotic calcification of the abdominal aorta and its branch vessels. Multilevel degenerative changes seen throughout the visualized spine. There is no suspicious lytic or blastic osseous lesion. IMPRESSION: 1. Stable post treatment changes in the right upper and lower lobes with unchanged collapse of the right middle lobe. 2. Stable sub 5 mm nodules in the left upper lobe. 3 No evidence of metastatic disease in the abdomen or pelvis. 4. Mildly enlarged main pulmonary artery can be seen in setting of pulmonary hypertension. 5. Periportal widening and subtle hepatic nodularity can be seen in cirrhosis. Dictated by: Alison Reeves M.D. The radiology attending physician has personally reviewed this study, and had reviewed and/or edited this written report and agrees with it. Electronically signed by: Hazel Cabello M.D. Zeeshan Rain MD IMG CT PROCEDURES [...] imaging, contrast, Starting on La 01/11/20 at 1017, For 1 dose Given 01/11/2020 10:33 AM CDT 125 mL documented in this encounter Orders Medications Ordered That Adam ht Not Have Been Administered Count Last Ordered Date First Ordered Date ioversoL (OPTIRAY 350) syrin ge syringe 125 mL 1 01/11/2020 documented in this encounter Care Teams Milk Wagon Driver Relationship Specialty Start Date End Date Paula Robles NP PCP - General 05/31/17 Zeeshan Rain MD Medical Oncologist/Terminal System Operator Medical Oncology 02/11/18 08/23/22 Addy Mathur MD PhD [address] [place] [address] Radiation Oncologist Radiation Oncology 03/10/18 documented as of this encounter
--- OUTSIDE RECORDS SUMMARY | 2024-08-06 17:35 | XMS_ITS | Encounter Summary ---
Author Organization [facility] Healthcare Address [address] [place] [address] Care Team Providers Care Matzo Forming Machine Operator Name Role Phone Paula Robles Eleni PERSONAL SERVICE REPRESENTATIVE Primary Care Provider + Zeeshan Rain MD Unavailable [phone] Addy reyna MD PhD Unavailable + [phone] Reason for Referral * Diagnostic Imaging (Routine) - Closed Specialty Diagnoses / Procedures Referred By Alan bangura Referred To Contact Radiology Diagnoses Malignant neoplasm of upper lobe, right bronchus or lung (HCC) Procedures CT Chest Abdomen Pelvis W Contrast Zeeshan Rain MD Phone: tel: fax: [address] [address] Referral ID Status Reason Start Date Expiration Date Visits Re quested Visits Authorized [id number] Closed 06/26/2019 01/04/2021 1 1 WRITER ASSEMBLY AND PARTS INSPECTOR Reason for Visit * Diagnostic Imaging (Routine) - Closed Specialty Diagnoses / Procedures Referred By Alan bangura Referred To Contact Radiology Diagnoses Malignant neoplasm of upper lobe, right bronchus or lung (HCC) Procedures CT Chest Abdomen Pelvis W Contrast Zeeshan Rain MD Phone: tel: fax: [address] [facility] [place] [address] Referral ID Status Reason Start Date Expiration Date Visits Re quested Visits Authorized [id number] Closed 06/26/2019 01/04/2021 1 1 Encounter Details Date Type Department Care Team (Latest Contact Info) Description 09/15/2019 10:02 AM TYPEWRITER ASSEMBLY AND PARTS INSPECTOR - 09/15/2019 11:59 PM TYPEWRITER ASSEMBLY AND PARTS INSPECTOR Hospital Encounter [facility] [address] [place] [address] Zeeshan Rain MD [address] [place] [address] Malignant neoplasm of upper lobe, right bronchus or lung (CMS/HCC) Discharge Disposition: Discharge to home or self care Social History Tobacco Use Types Packs/Day Years Used Date Smoking Tobacco: Former Cigarettes Smokeless Tobacco: Never Comments No Sex and Gender Information Value Date Recorded Sex Assigned at Not on file Legal Sex Female 1:02 AM TYPEWRITER ASSEMBLY AND PARTS INSPECTOR Gender Identity Not on file Sexual Orientation [...] oxycodone-aceta minophen 5 mg-325 mg tablet 3 POTASSIUM CHLORIDE ER 20 mEq CR tablet TAKE 1 TABLET(20 MEQ) BY MOUTH TWICE DAILY 60 tablet 03/28/2019 0 predniSONE (DELTASONE) 10 mg tablet pack [...] CONTRAST Schedule Routine, Read Routine (OP Routine) 09/15/2019 10:37 AM TYPEWRITER ASSEMBLY AND PARTS INSPECTOR Malignant neoplasm of upper lobe, right bronchus or lung (CMS/HCC) POCT CREATININE - DEVICE Routine 09/15/2019 10:17 AM TYPEWRITER ASSEMBLY AND PARTS INSPECTOR documented in this encounter Results * CT Chest Abdomen Pelvis W Contrast (09/15/2019 10:37 AM TYPEWRITER ASSEMBLY AND PARTS INSPECTOR) Anatomical Region Laterality Modality Body N/A Computed Tomogra phy 09/15/2019 11:0 3 AM TYPEWRITER ASSEMBLY AND PARTS INSPECTOR Impressions 09/15/2019 5:17 PM TYPEWRITER ASSEMBLY AND PARTS INSPECTOR 1. Stable post-treatment changes in the right upper and lower lobes without evidence of recurrent disease. 2. Unchanged 2 mm left upper lobe pulmonary nodule. Dictated by: Akil Seth M.D. The radiology attending physician has personally reviewed this study, and had reviewed and/or edited this written report and agrees with it. Electronically signed by: Nii Foote M.D. Narrative 09/15/2019 5:17 PM TYPEWRITER ASSEMBLY AND PARTS INSPECTOR EXAMINATION: ??Computed tomography of the chest, abdomen [...] it. Electronically signed by: Nii Foote M.D. Zeeshan Rain MD IMG CT PROCEDURES Sada l Result * POCT creatinine (09/15/2019 10:17 AM TYPEWRITER ASSEMBLY AND PARTS INSPECTOR) Creatinine POC 0.8 0.6 - 1.1 mg/dL [facility] Blood specimen (specimen) 09/15/2019 10:17 AM TYPEWRITER ASSEMBLY AND PARTS INSPECTOR 09/15/2019 10:17 AM TYPEWRITER ASSEMBLY AND PARTS INSPECTOR Zeeshan Rain MD LAB POCT ORDERABLES - DEVICE Final Result [facility] Department [place] [address] documented in this encounter Visit Diagnoses Diagnosis Malignant neoplasm of upper lobe, right bronchus or lung (HCC) documented in this encounter Administered Medications Inactive Administered Medications - up to 3 most recent administrations Medication Order MAR Action Action Date Dose Rate Site ioversol (OPTIRAY 350) syringe syringe 125 mL 125 mL, intravenous, Once in imaging, contrast, Starting on Wed09/15/19 at 1041, For 1 dose Given 09/15/2019 10:41 AM TYPEWRITER ASSEMBLY AND PARTS INSPECTOR 125 mL documented in this encounter Orders Medications Ordered That Adam ht Not Have Been Administered Count Last Ordered Date First Ordered Date ioversol (OPTIRAY 350) syrin ge syringe 125 mL 1 09/15/2019 documented in this encounter Care Teams Matzo Forming Machine Operator Relationship Specialty Start Date End Date Paula Robles NP PCP - General 05/31/17 Zeeshan Rain MD Medical Oncologist/Wheel Fitter Medical Oncology 02/11/18 08/23/22 Addy Mathur MD PhD [address] [place] [address] Radiation Oncologist Radiation Oncology 03/10/18 documented as of this encounter
--- OUTSIDE RECORDS SUMMARY | 2024-08-06 17:35 | XMS_ITS | Encounter Summary ---
Author Organization [facility] Address [address] [place] [address] Phone Care Team Providers Care School Library Media Specialist Name Role Phone Paula Robles LICENSED FUNERAL DIRECTOR Primary Care Provider + Zeeshan Rain MD Unavailable [phone] [facility] Unavailable + [phone] Encounter Details Date Type Department Care Team (Late st Contact Info) Description 12/20/2018 Orders Only [facility] Oncology [address] [facility] 7th [place] [address] [place] [address] Lizzy Rod MA Social History Tobacco Use Types Packs/Day Years Used Date Smoking Tobacco: Former Cigarettes Smokeless Tobacco: Never Comments No Sex and Gender Information Value Date Recorded Sex Assigned at Not on file Legal Sex Female 1:02 AM PROGRAM DIRECTOR/MORNING SHOW HOST Gender Identity Not on file Sexual Orientation Not on file documented as of this encounter Plan of Treatment Not on file documented as of this encounter Visit Diagnoses Not on filedocumented in this encounter Care Teams School Library Media Specialist Relationship Specialty Start Date End Date Paula Robles NP PCP - General 05/31/17 Zeeshan Rain MD Medical Oncologist/Humane Officer Medical Oncology 02/11/18 08/23/22 Addy Mathur MD PhD [address] [place] [address] Radiation Oncologist Radiation Oncology 03/10/18 documented as of this encounter
--- OUTSIDE RECORDS SUMMARY | 2024-08-06 17:35 | XMS_ITS | Encounter Summary ---
Author Organization [facility] Address [address] [place] [address] Phone Care Team Providers Care Operations Developer Name Role Phone Paula Robles BUILDING MAINTENANCE MECHANIC Primary Care Provider + Zeeshan Rain MD Unavailable [phone] [facility] MD PhD Unavailable [phone] Encounter Details Date Type Department Care Team (Late st Contact Info) Description 12/20/2018 Orders Only [facility] Oncology [address] [facility] 7th [place] [address] [place] [address] Lizzy Rod MA Social History Tobacco Use Types Packs/Day Years Used Date Smoking Tobacco: Former Cigarettes Smokeless Tobacco: Never Comments No Sex and Gender Information Value Date Recorded Sex Assigned at Not on file Legal Sex Female 1:02 AM STATION SUPERINTENDENT Gender Identity Not on file Sexual Orientation Not on file documented as of this encounter Plan of Treatment Not on file documented as of this encounter Visit Diagnoses Not on filedocumented in this encounter Care Teams Operations Developer Relationship Specialty Start Date End Date Paula Robles NP PCP - General 05/31/17 Zeeshan Rain MD Medical Oncologist/Invoice Classification Clerk Medical Oncology 02/11/18 08/23/22 Addy Mathur MD PhD [address] [place] [address] Radiation Oncologist Radiation Oncology 03/10/18 documented as of this encounter
--- OUTSIDE RECORDS SUMMARY | 2024-08-06 17:35 | XMS_ITS | Encounter Summary ---
Author Organization [facility] Healthcare Address [address] [place] [address] Care Team Providers Care Videotape Editor Name Role Phone Paula Robles MORTGAGE SALES MANAGER Primary Care Provider + Zeeshan Rain MD Unavailable [phone] Addy reyna MD PhD Unavailable [phone] Reason for Referral * Diagnostic Imaging (Routine) - Closed Specialty Diagnoses / Procedures Referred By Alan bangura Referred To Contact Radiology Diagnoses Malignant neoplasm of upper lobe, right bronchus or lung (HCC) Procedures MRI Brain W WO Contrast Zeeshan Rain MD Phone: tel: fax: [address] [address] Referral ID Status Reason Start Date Expiration Date Visits Re quested Visits Authorized [id number] Closed 03/06/2019 09/14/2020 1 1 Reason for Visit * Diagnostic Imaging (Routine) - Closed Specialty Diagnoses / Procedures Referred By Alan bangura Referred To Contact Radiology Diagnoses Malignant neoplasm of upper lobe, right bronchus or lung (HCC) Procedures MRI Brain W WO Contrast Zeeshan Rain MD Phone: tel: fax: [address] [facility] [address] Referral ID Status Reason Start Date Expiration Date Visits Re quested Visits Authorized [id number] Closed 03/06/2019 09/14/2020 1 1 Encounter Details Date Type Department Care Team (Latest Contact Info) Description 04/27/2019 12:24 PM CDT - 04/27/2019 11:59 PM CDT Hospital Encounter [facility] [place] [address] Zeeshan Rain MD [address] [place] [address] Malignant neoplasm of upper lobe, right bronchus or lung (CMS/HCC) Discharge Disposition: Discharge to home or self care Social History Tobacco Use Types Packs/Day Years Used Date Smoking Tobacco: Former Cigarettes Smokeless Tobacco: Never Comments No Sex and Gender Information Value Date Recorded Sex Assigned at Not on file 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 Dictated by: Ricky Webster M.D. , PHD The radiology attending physician has personally reviewed this study, and had reviewed and/or edited this written report and agrees with it. Electronically signed by: Bhaskar Cortez M.D. 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 TECHNIQUE: Multiplanar multi-weighted MRI of the brain and brainstem was performed without and with intravenous contrast using the general brain protocol. Contrast information: 20 mL Dotarem COMPARISON: 12/01/2018 FINDINGS: There are areas of increased FLAIR and T2 hyperintense signal in the periventricular region which are nonspecific and appear unchanged. 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 The scalp and calvarium are normal. ?? [...] and position without evidence of hydrocephalus . 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 There are no areas of abnormal contrast enhancement. The paranasal sinuses are normal. ??The visualized portions of the mastoids are unremarkable. ??The orbits appear normal. ??Normal flow voids are demonstrated in the carotid arteries and basilar artery. 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 TECHNIQUE: Multiplanar multi-weighted MRI of the brain and brainstem was performed without and with intravenous contrast using the general brain protocol. Contrast information: 20 mL Dotarem COMPARISON: 12/01/2018 FINDINGS: There are areas of increased FLAIR and T2 hyperintense signal in the periventricular region which are nonspecific and appear unchanged. 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 The scalp and calvarium are normal. The [...] without evidence of hydrocephalus . 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 There are no areas of abnormal contrast enhancement. The paranasal sinuses are normal. The visualized portions of the mastoids are unremarkable. The orbits appear normal. Normal flow voids are demonstrated in the carotid arteries and basilar artery. IMPRESSION: No MR evidence of intracranial metastasis. Dictated by: Ricky Webster M.D. , PHD The radiology attending physician has personally reviewed this study, and had reviewed and/or edited this written report and agrees with it. Electronically signed by: Bhaskar Cortez M.D. Zeeshan Rain MD [facility] MRI PROCEDURES Fin al Result documented in this encounter Visit Diagnoses Diagnosis Malignant neoplasm of upper lobe, right bronchus or lung (HCC) documented in this encounter Administered Medications Inactive Administered Medications - up to 3 most recent administrations Medication Order MAR Action Action Date Dose Rate Site gadoterate meglumine (DOTAREM) 0.5 mmol/mL injection 21.92 mL 21.92 mL (0.1 mmol/kg ? 109.6 kg), intravenous, Once in imaging, contrast, Starting on La 04/27/19 at 1309, For 1 dose, Imaging Protocol Orders Given 04/27/2019 1:09 PM CDT 20 mL documented in this encounter Orders Medications Ordered That Adam ht Not Have Been Administered Count Last Ordered Date First Ordered Date gadoterate meglumine (DOTARE M) 0.5 mmol/mL injection 21.92 mL 1 04/27/2019 documented in this encounter Care Teams Videotape Editor Relationship Specialty Start Date End Date Paula Robles NP PCP - General 05/31/17 Zeeshan Rain MD Medical Oncologist/Legislators Medical Oncology 02/11/18 08/23/22 Addy Mathur MD PhD [address] [place] [address] Radiation Oncologist Radiation Oncology 03/10/18 documented as of this encounter
--- OUTSIDE RECORDS SUMMARY | 2024-08-06 17:35 | XMS_ITS | Encounter Summary ---
Author Organization [facility] Address [address] [place] [address] Phone Care Team Providers Care Unhairing Machine Operator Name Role Phone Travis, Paula Knowles NP Primary Care Provider + Zeeshan Rain MD Unavailable [phone] Addy reyna MD PhD Unavailable + [phone] Encounter Details Date Type Department Care Team (Late st Contact Info) Description 01/15/2020 10:00 AM CDT Lab [facility] Oncology [address] [facility] Advanced Medicine 7th [place] [address] [place] [id number] Zeeshan Rain MD [address] [place] [address] Malignant neoplasm of upper lobe, right bronchus or lung (CMS/HCC) Social History Tobacco Use Types Packs/Day Years Used Date Smoking Tobacco: Former Cigarettes Smokeless Tobacco: Never Comments No Sex and Gender Information Value Date Recorded Sex Assigned at Not on file 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 Gender Identity Not on file Sexual Orientation Not on file documented as of this encounter Plan of Treatment Not on file documented as of this encounter Procedures Procedure Name Priority Date/Time Associated Diagnosis Comments DIFFERENTIAL AUTO Routine 01/15/2020 10: 07 AM CDT Malignant neoplasm of upper lobe, right bronchus or lung (CMS/HCC) CBC WITH AUTO DIFFERENTIAL Routine 01/15/2020 10:07 AM CDT Malignant neoplasm of upper lobe, right bronchus or lung (CMS/HCC) COMPREHENSIVE METABOLIC PANEL STAT 01/15/2020 10:07 AM CDT Malignant neoplasm of upper lobe, right bronchus or lung (CMS/HCC) documented in this encounter Results * Differential, auto (01/15/2020 10:07 AM CDT) Neutrophil abs 3.0 1.8 - 6.6 K/cumm [facility] Comment:Testing performed by : [facility], [address] [place] [phone] Lymphocyte abs 1.4 1.2 - 3.3 K/cumm [facility] Comment:Testing performed by : [facility], [address] [place] [phone] Monocyte abs 0.3 0.2 - 1.2 K/cumm [facility] Comment:Testing performed by : [facility], [address] [place] [phone] Eosinophil abs 0.1 0.0 - 0.5 K/cumm [facility] Comment:Testing performed by : [facility], [address] [place] [phone] Basophil abs 0.1 0.0 - 0.2 K/cumm [facility] Comment:Testing performed by : [facility], [address] [place] [phone] Neutrophil pct 60.7 % [facility] Comment: Interpretive Data Percent cell count reference ranges are not reported, since discordance with absolute values may lead to misinterpretation of CBC data. Current Interpretive Data was last revised on 2017. Testing performed by: [facility], [address] [place] [phone] Lymphocyte pct 28.7 % [facility] Comment: Interpretive Data Percent cell count reference ranges are not reported, since discordance with absolute values may lead to misinterpretation of CBC data. Current Interpretive Data was last revised on 2017. Testing performed by: [facility], [address] [place] [phone] Monocyte pct 6.4 % [facility] Comment:Testing performed by : [facility], [address] [place] [phone] Eosinophil pct 2.8 % [facility] Comment:Testing performed by : [facility], [address] [place] [phone] Basophil pct 1.4 % [facility] Comment:Testing performed by : [facility], [address] [place] [phone] Blood specimen (specimen) 01/15/2020 10:07 AM CDT 01/15/2020 10:11 AM CDT Zeeshan Rain MD LAB BLOOD ORDERABLES F inal Result [facility] [place] [address] * CBC with auto differential (01/15/2020 10:07 AM CDT) WBC 5.0 3.8 - 9.8 K/cumm [facility] Comment:Testing performed by : [facility], [address] [place] [phone] Hgb 13.7 12.1 - 15.1 g/dL [facility] Comment:Testing performed by : [facility], [address] [place] [phone] Hct 40.8 36.1 - 44.3 % [facility] Comment:Testing performed by : [facility], [address] [place] [phone] Plt 222 140 - 440 K/cumm [facility] Comment:Testing performed by : [address] [phone] MPV 7.6 6.8 - 10.4 fL [facility] Comment:Testing performed by : [address] [phone] RBC 4.39 3.90 - 5.00 M/cumm [facility] Comment:Testing performed by : [facility], [address] [place] [phone] MCV 92.9 80.0 - 97.6 fL [facility] Comment:Testing performed by : [facility], [address] [place] [phone] MCH 31.1 26.7 - 33.7 pg [facility] Comment:Testing performed by : [facility], [address] [place] [phone] MCHC 33.5 32.7 - 35.5 g/dL [facility] Comment:Testing performed by : [facility], [address] [place] [phone] RDW CV 13.7 11.8 - 14.6 % [facility] Comment:Testing performed by : [facility], [address] [place] [phone] NRBC abs 0.00 0.00 - 0.01 K/cumm [facility] Comment:Testing performed by : [facility], [address] [place] [phone] Blood specimen (specimen) 01/15/2020 10:07 AM CDT 01/15/2020 10:11 AM CDT us Zeeshan Rain MD LAB BLOOD ORDERABLES F inal Result [facility] [place] [address] * Comprehensive metabolic panel (01/15/2020 10:07 AM CDT) Sodium 139 135 - 145 mmol/L [facility] Comment:Testing performed by : [facility], [address] [place] [phone] Potassium, pl 3.9 3.3 - 4.9 mmol/L [facility] Comment:Testing performed by : [address] [phone] Chloride 101 97 - 110 mmol/L [facility] Comment:Testing performed by : [facility], [address] [place] [phone] CO2 28 22 - 32 mmol/L [facility] Comment:Testing performed by : [facility], [address] [place] [phone] Anion gap 10 2 - 15 mmol/L [facility] Comment:Testing performed by : [facility], [address] [place] [phone] BUN 12 8 - 25 mg/dL [facility] Comment:Testing performed by : [facility], [address] [place] [phone] Creatinine 0.67 0.60 - 1.10 mg/dL [facility] Comment:Testing performed by : [facility], [address] [place] [phone] Glucose 98 70 - 199 mg/dL [facility] Comment: [...] was last revised 2017. Testing performed by: [facility], [address] [place] [phone] Calcium 9.6 8.5 - 10.3 mg/dL [facility] Comment:Testing performed by : [facility], [address] [place] [phone] Bilirubin, total 0.5 0.1 - 1.2 mg/dL [facility] Comment:Testing performed by : [facility], [address] [place] [phone] Protein, pl 7.1 6.5 - 8.5 g/dL [facility] Comment:Testing performed by : [facility], [address] [place] [phone] Albumin 4.2 3.5 - 5.0 g/dL [facility] Comment:Testing performed by : [facility], [address] [facility] [phone] Alk phos 90 40 - 130 Units/L [facility] Comment:Testing performed by : [facility], [address] [place] [phone] ALT 19 7 - 45 Units/L [facility] Comment:Testing performed by : [facility], [address] [place] [phone] AST 15 10 - 45 Units/L [facility] Comment:Testing performed by : [facility], [address] [place] [phone] Blood specimen (specimen) 01/15/2020 10:07 AM CDT 01/15/2020 10:11 AM CDT us Zeeshan Rain MD LAB BLOOD ORDERABLES F inal Result [facility] Department [place] [address] documented in this encounter Visit Diagnoses Diagnosis Malignant neoplasm of upper lobe, right bronchus or lung (HCC) documented in this encounter Orders Appointment Requests Count Last Ordered Date Fi rst Ordered Date ONCBCN LAB APPOINTMENT 1 01/15/2020 documented in this encounter Care Teams Unhairing Machine Operator Relationship Specialty Start Date End Date Paula Robles NP PCP - General 05/31/17 Zeeshan Rain MD Medical Oncologist/Ultrasound Applications Specialist Medical Oncology 02/11/18 08/23/22 Addy Mathur MD PhD [address] [place] [address] Radiation Oncologist Radiation Oncology 03/10/18 documented as of this encounter
--- OUTSIDE RECORDS SUMMARY | 2024-08-06 17:35 | XMS_ITS | Encounter Summary ---
Author Organization [facility] Address [address] [place] [address] Phone Care Team Providers Care Inspector Fuel Hose Name Role Phone Travis Paula Knowles NP Primary Care Provider + Zeeshan Rain MD Unavailable [phone] Addy Mathur MD PhD Unavailable + [phone] Encounter Details Date Type Department Care Team (Late st Contact Info) Description 04/19/2020 Telephone [facility] Gastroenterology [address] 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 She will focus on weight loss. She is aware we will reach out to her in July to help her schedule the ultrasound. She would prefer to go locally. ----- Message from Mark Anthony De Dios MD sent at 04/19/2020 9:27 AM CDT ----- Cardiac function is good; no evidence of heart problems causing liver problems. Needs to concentrate on weight loss. 25 pounds in the next year. Ultrasound liver in July. documented in this encounter Plan of Treatment Not on file documented as of this encounter Visit Diagnoses Not on filedocumented in this encounter Care Teams Inspector Fuel Hose Relationship Specialty Start Date End Date Paula Robles NP PCP - General 05/31/17 Zeeshan Rain MD Medical Oncologist/Incising Machine Operator Medical Oncology 02/11/18 08/23/22 Addy Mathur MD PhD [address] [place] [address] Radiation Oncologist Radiation Oncology 03/10/18 documented as of this encounter
--- OUTSIDE RECORDS SUMMARY | 2024-08-06 17:35 | XMS_ITS | Encounter Summary ---
Author Organization [facility] Address [address] [place] [address] Phone Care Team Providers Care General Duty Nurse Name Role Phone Paula Robles NP Primary Care Provider + Zeeshan Rain MD Unavailable [phone] Addy Mathur MD PhD Unavailable + [phone] Encounter Details Date Type Department Care Team (Late st Contact Info) Description 05/13/2020 10:15 AM CDT Lab [facility] Oncology [address] [facility] Advanced Medicine 7th [place] [address] [place] [address] Pam Aggarwal NP [address] [place] [address] Malignant neoplasm of upper lobe, right bronchus or lung (CMS/HCC) Social History Tobacco Use Types Packs/Day Years Used Date Smoking Tobacco: Former Cigarettes Smokeless Tobacco: Never Comments No Sex and Gender Information Value Date Recorded Sex Assigned at Not on file 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 Gender Identity Not on file Sexual Orientation Not on file documented as of this encounter Plan of Treatment Not on file documented as of this encounter Procedures Procedure Name Priority Date/Time Associated Diagnosis Comments DIFFERENTIAL AUTO Routine 05/13/2020 10: 10 AM CDT Malignant neoplasm of upper lobe, right bronchus or lung (CMS/HCC) CBC WITH AUTO DIFFERENTIAL Routine 05/13/2020 10:10 AM CDT Malignant neoplasm of upper lobe, right bronchus or lung (CMS/HCC) COMPREHENSIVE METABOLIC PANEL STAT 05/13/2020 10:10 AM CDT Malignant neoplasm of upper lobe, right bronchus or lung (CMS/HCC) documented in this encounter Results * Differential, auto (05/13/2020 10:10 AM CDT) Neutrophil abs 4.0 1.8 - 6.6 K/cumm [facility] Comment:Testing performed by : [facility], [address] [place] [phone] Lymphocyte abs 1.5 1.2 - 3.3 K/cumm [facility] Comment:Testing performed by : [facility], [address] [place] [phone] Monocyte abs 0.4 0.2 - 1.2 K/cumm [facility] Comment:Testing performed by : [facility], [address] [place] [phone] Eosinophil abs 0.1 0.0 - 0.5 K/cumm [facility] Comment:Testing performed by : [facility], [address] [place] [phone] Basophil abs 0.1 0.0 - 0.2 K/cumm [facility] Comment:Testing performed by : [facility], [address] [place] [phone] Neutrophil pct 65.0 % [facility] Comment: Interpretive Data Percent cell count reference ranges are not reported, since discordance with absolute values may lead to misinterpretation of CBC data. Current Interpretive Data was last revised on 2017. Testing performed by: [facility], [address] [place] [phone] Lymphocyte pct 24.6 % [facility] Comment: Interpretive Data Percent cell count reference ranges are not reported, since discordance with absolute values may lead to misinterpretation of CBC data. Current Interpretive Data was last revised on 2017. Testing performed by: [facility], [address] [place] [phone] Monocyte pct 6.3 % [facility] Comment:Testing performed by : [facility], [address] [place] [phone] Eosinophil pct 2.4 % [facility] Comment:Testing performed by : [facility], [address] [place] [phone] Basophil pct 1.7 % [facility] Comment:Testing performed by : [facility], [address] [place] [phone] Blood specimen (specimen) 05/13/2020 10:10 AM CDT 05/13/2020 10:19 AM CDT Pam Aggarwal UNIVERSITY REGISTRAR LAB BLOOD ORDERABLES Fi nal Result [facility] Department [place] [address] * (ABNORMAL) Comprehensive metabolic panel (05/13/2020 10:10 AM CDT) Sodium 142 135 - 145 mmol/L [facility] Comment:Testing performed by : [facility], [address] [place] [phone] Potassium, pl 3.2(L) 3.3 - 4.9 mmol/L [facility] Comment:Testing performed by : [facility], [address] [place] [phone] Chloride 101 97 - 110 mmol/L [facility] Comment:Testing performed by : [facility], [address] [place] [phone] CO2 31 22 - 32 mmol/L [facility] Comment:Testing performed by : [address] [address] Anion gap 10 2 - 15 mmol/L [facility] Comment:Testing performed by : [address] [address] BUN 12 8 - 25 mg/dL [facility] Comment:Testing performed by : [facility] [address] Creatinine 0.60 0.60 - 1.10 mg/dL [facility] Comment:Testing performed by : [facility], [address] [place] [phone] Glucose 113 70 - 199 mg/dL [facility] Comment: [...] last revised 2017. Testing performed by: [address] [phone] Calcium 9.7 8.5 - 10.3 mg/dL [facility] Comment:Testing performed by : [facility], [address] [place] [phone] Bilirubin, total 0.5 0.1 - 1.2 mg/dL [facility] Comment:Testing performed by : [address] [phone] Protein, pl 7.2 6.5 - 8.5 g/dL [facility] Comment:Testing performed by : [address] [phone] Albumin 4.2 3.5 - 5.0 g/dL [facility] Comment:Testing performed by : [address] [phone] Alk phos 94 40 - 130 Units/L [facility] Comment:Testing performed by : [place] [phone] ALT 21 7 - 45 Units/L [facility] Comment:Testing performed by : [place] [phone] AST 17 10 - 45 Units/L [facility] Comment:Testing performed by : [facility], [address] [place] [phone] Blood specimen (specimen) 05/13/2020 10:10 AM CDT 05/13/2020 10:19 AM CDT Pam Aggarwal UNIVERSITY REGISTRAR LAB BLOOD ORDERABLES Fi nal Result [facility] Department [place] [address] * CBC with auto differential (05/13/2020 10:10 AM CDT) WBC 6.2 3.8 - 9.8 K/cumm [facility] Comment:Testing performed by : [facility], [address] [place] [phone] Hgb 14.0 12.1 - 15.1 g/dL [facility] Comment:Testing performed by : [facility], [address] [place] [phone] Hct 42.3 36.1 - 44.3 % [facility] Comment:Testing performed by : [address] [phone] Plt 220 140 - 440 K/cumm [facility] Comment:Testing performed by : [address] [address] MPV 7.7 6.8 - 10.4 fL [facility] Comment:Testing performed by : [address] [phone] RBC 4.55 3.90 - 5.00 M/cumm [facility] Comment:Testing performed by : [address] [address] MCV 93.1 80.0 - 97.6 fL [facility] Comment:Testing performed by : [address] [address] MCH 30.9 26.7 - 33.7 pg [facility] Comment:Testing performed by : [address] [address] MCHC 33.2 32.7 - 35.5 g/dL [facility] Comment:Testing performed by : [facility], [address] [place] [phone] RDW CV 13.9 11.8 - 14.6 % [facility] Comment:Testing performed by : [facility], [address] [place] [phone] NRBC abs 0.01 0.00 - 0.01 K/cumm [facility] Comment:Testing performed by : [facility], [address] [place] [phone] Blood specimen (specimen) 05/13/2020 10:10 AM CDT 05/13/2020 10:19 AM CDT Pam Aggarwal UNIVERSITY REGISTRAR LAB BLOOD ORDERABLES Fi nal Result [facility] Department [place] [address] documented in this encounter Visit Diagnoses Diagnosis Malignant neoplasm of upper lobe, right bronchus or lung (HCC) documented in this encounter Orders Appointment Requests Count Last Ordered Date Fi rst Ordered Date ONCBCN LAB APPOINTMENT 1 05/13/2020 documented in this encounter Care Teams General Duty Nurse Relationship Specialty Start Date End Date Paula Robles NP PCP - General 05/31/17 Zeeshan Rain MD Medical Oncologist/Grinder Dresser Medical Oncology 02/11/18 08/23/22 Addy Mathur MD PhD [address] [place] [address] Radiation Oncologist Radiation Oncology 03/10/18 documented as of this encounter
--- OUTSIDE RECORDS SUMMARY | 2024-08-06 17:35 | XMS_ITS | Encounter Summary ---
Author Organization [facility] Address [address] [place] [address] Phone Care Team Providers Care Solar Manager Name Role Phone Paula Robles NP Primary Care Provider + Zeeshan Rain MD Unavailable [phone] [facility] Unavailable [phone] Reason for Referral * MRI/CAT/PET Scan (Routine) - Closed Specialty Diagnoses / Procedures Referred By Alan t Referred To Contact Radiology Diagnoses Malignant neoplasm of upper lobe, right bronchus or lung (HCC) Procedures CT chest abdomen pelvis with contrast Pam Aggarwal NP Phone: tel: fax: [address] [address] Referral ID Status Reason Start Date Expiration Date Visits Re quested Visits Authorized [id number] Closed 01/15/2020 07/26/2021 1 1 Encounter Details Date Type Department Care Team (Late st Contact Info) Description 01/15/2020 11:00 AM CDT Office Visit [facility] Oncology [address] [facility] 7th [place] [address] [place] [address] Zeeshan Rain MD [address] [facility] [address] [place] [address] Malignant neoplasm of upper lobe, right bronchus or lung (CMS/HCC) (Primary Dx) Social History Tobacco Use Types Packs/Day Years Used Date Smoking Tobacco: Former Cigarettes Smokeless Tobacco: Never Comments No Sex and Gender Information Value Date Recorded Sex Assigned at Not on file Legal Sex Female 1:02 AM MD DO [facility] Gender Identity Not on file Sexual Orientation Not on file documented as of this encounter Last Filed Vital Signs Vital Sign Reading Time Taken Comments Blood Pressure 139/82 01/15/2020 10:17 AM CDT Pulse 99 01/15/2020 10:17 AM CDT Temperature 36.8 ??C (98.3 ??F) 01/15/2020 1 0:17 AM CDT Respiratory Rate 20 01/15/2020 10:1 7 AM CDT Oxygen Saturation 94% 01/15/2020 10: 17 AM CDT Inhaled Oxygen Concentration - - Weight 113.2 kg (249 lb 9.6 oz) 020 10:17 AM CDT Height - - Body Mass Index 46.28 09/18/2019 11:19 AM MD DO [facility] documented in this encounter Progress Notes * Pam Aggarwal NP - 01/15/2020 11:00 AM CDT [facility] DEPARTMENT OF MEDICINE - MEDICAL ONCOLOGY [address] [place] [phone] PHONE: FAX: Medical Oncology Follow-up Note Oncology History DIAGNOSIS: 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 Tumor specimen demonstrates CD56, synaptophysin, cytokeratin, and TTF positivity. TREATMENT: 1. Concurrent chemoradiation with carboplatin and etoposide with radiation from 06/21/2017 to 08/03/2017, and chemotherapy from 05/28/2017 to 08/05/2017. 2. Prophylactic whole-brain radiation in 10 fractions from 09/13/2017 to 09/24/2017. Interval History: Gaby Morgan presents for a 4 month follow-up visit today, accompanied by her Fernandez. Shecontinues to do well without new neurological or systemic symptoms. She continues to mention dyspnea intermittently with exertion, which is related to her underlying COPD, this is stable. She continues to follow with a grounds maintenance worker and uses supplemental oxygen at night, as needed. She monitors heroxygen at home. She denies any systemic or neurological symptoms. Her performance status and weightare otherwise stable. PAST MEDICAL HISTORY: 1. COPD/asthma. 2. History of community-acquired pneumonia. 3. Radiographic findings of pulmonary hypertension on CT scan. SOCIAL HISTORY: She is currently retired. 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 She lives in [place], [place]. She quit smoking in 2008 but [...] Systems: All other systems negative Vitals: BP: 139/82 Temp: 36.8 ??C (98.3 ??F) Temp src: Oral Pulse: 99 Resp: 20 SpO2: 94 % Weight: 113.2 kg (249 lb 9.6 oz) Physical Exam: General: Alert, awake and oriented. Not in acute distress HEENT: sclerae anicteric, no pallor, mucous membranes moist, oropharynx clear Lymphatics: no cervical, axillary or supraclavicular adenopathy Chest: clear to auscultation bilaterally, scattered wheezes bilaterally Heart: regular rate and rhythm. No murmurs. Abdomen: soft, non-tender. No organomegaly Extremities: no edema or erythema Neurologic: Alert, speech normal, no gross motor or sensory deficits noted Psychiatric exam: Appropriate affect Skin: no rashes or bruises ECO Lab Review: CBC: Lab Results Component Value Date/Time WBC 5.0 01/15/2020 10:07 AM HGB 13.7 01/15/2020 10:07 AM HCT 40.8 01/15/2020 10:07 AM MCV 92.9 01/15/2020 10:07 AM NEUTROABS 3.0 01/15/2020 10:07 AM CMP: Lab Results Component Value Date/Time SODIUM 139 01/15/2020 10:07 AM POTASSIUM 3.9 01/15/2020 10:07 AM CO2 28 01/15/2020 10:07 AM BUNSER 12 01/15/2020 10:07 AM GLUCOSE 98 01/15/2020 10:07 AM CREATININE 0.67 01/15/2020 10:07 AM CALCIUM 9.6 01/15/2020 10:07 AM CHLORIDE 101 01/15/2020 10:07 AM ALBUMIN 4.2 01/15/2020 10:07 AM AST 15 01/15/2020 10:07 AM ALT 19 01/15/2020 10:07 AM ALKPHOS 90 01/15/2020 10:07 AM BILITOT 0.5 01/15/2020 10:07 AM PROT 7.1 01/15/2020 10:07 AM ANIONGAP 10 01/15/2020 10:07 AM Radiology: Mri Brain W Wo Contrast Result Date: 01/11/2020 No evidence of metastatic disease in the brain. Ct Chest Abdomen Pelvis W Contrast Result Date: 01/11/2020 1. Stable post treatment changes in the [...] hepatic nodularity can be seen in cirrhosis. Assessment and Plan: Gaby Morgan is a 68-year-old lady with limited stage small cell lung cancer for which she received concurrent chemoradiation followed by prophylactic cranial irradiation. Dr. Rain and myself reviewed the most recent CT imaging revealing no obvious evidence of progression. Brain Mri was also negative. There appears to be hepatic nodularity suggesting possible cirrhosis, therefore we will refer her to hepatology. As such, we will plan on seeing her back in 4 months with a repeat CT scan. She knows to contact us in the interim with any questions or concerns. She will continue to follow with her grounds maintenance worker for management of her COPD. Rei Aggarwal RN, CUSTOM SHOP WORKER-C Nurse Practitioner, Medical Oncology In collaboration with Dr. Zeeshan Rain documented in this encounter Plan of Treatment Not on file documented as of this encounter Results * CBC with auto differential (05/13/2020 10:10 AM CDT) WBC 6.2 3.8 - 9.8 K/cumm [facility] Comment:Testing performed by : [facility], [address] [place], [place] [id number] Hgb 14.0 12.1 - 15.1 g/dL [facility]ER [facility] Comment:Testing performed by : [facility], [address] [place] [phone] Hct 42.3 36.1 - 44.3 % [facility] Comment:Testing performed by : [place] [id number] Plt 220 140 - 440 K/cumm [facility] Comment:Testing performed by : [place] [id number] MPV 7.7 6.8 - 10.4 fL [facility] Comment:Testing performed by : [place] [id number] RBC 4.55 3.90 - 5.00 M/cumm [facility] Comment:Testing performed by : [place] [id number] MCV 93.1 80.0 - 97.6 fL [facility] Comment:Testing performed by : [place] [id number] MCH 30.9 26.7 - 33.7 pg [facility] Comment:Testing performed by : [address] [phone] MCHC 33.2 32.7 - 35.5 g/dL [facility] Comment:Testing performed by : [place] [id number] RDW CV 13.9 11.8 - 14.6 % [facility] Comment:Testing performed by : [place] [id number] NRBC abs 0.01 0.00 - 0.01 K/cumm ARSENIO BELLA Comment:Testing performed by : [facility], [address] [place] [phone] Blood specimen (specimen) 05/13/2020 10:10 AM CDT 05/13/2020 10:19 AM CDT Pam Aggarwal FARROWING WORKER LAB BLOOD ORDERABLES nal Result [facility]IO [facility] Department [place] [address] * (ABNORMAL) Comprehensive metabolic panel (05/13/2020 10:10 AM CDT) Sodium 142 135 - 145 mmol/L ARSENIO [facility]LLA Comment:Testing performed by : [facility], [address] [place] [phone] Potassium, pl 3.2(L) 3.3 - 4.9 mmol/L ARSENIO BELLA Comment:Testing performed by : [facility], [address] [place] [phone] Chloride 101 97 - 110 mmol/L [facility]ENIO [facility] Comment:Testing performed by : [facility], [address] [place] [phone] CO2 31 22 - 32 mmol/L ARSENIO BELLA Comment:Testing performed by : [facility], [address] [place] [phone] Anion gap 10 2 - 15 mmol/L ARSENIO BELLA Comment:Testing performed by : [facility], [address] [place] [phone] BUN 12 8 - 25 mg/dL ARSENIO BELLA Comment:Testing performed by : [facility], [address] [place] [phone] Creatinine 0.60 0.60 - 1.10 mg/dL ARSENIO BELLA Comment:Testing performed by : [facility], [address] [place] [phone] Glucose 113 70 - 199 mg/dL ARSENIO BELLA Comment: [...] was last revised 2017. Testing performed by: [facility], [address] [place], [place] [id number] Calcium 9.7 8.5 - 10.3 mg/dL [facility]ER [facility] Comment:Testing performed by : [address] Bilirubin, total 0.5 0.1 - 1.2 mg/dL [facility] Comment:Testing performed by : [address] [phone] Protein, pl 7.2 6.5 - 8.5 g/dL [facility] Comment:Testing performed by : [address] [phone] Albumin 4.2 3.5 - 5.0 g/dL [facility] Comment:Testing performed by : [address] [phone] Alk phos 94 40 - 130 Units/L [facility] Comment:Testing performed by : [address] [phone] ALT 21 7 - 45 Units/L [facility] Comment:Testing performed by : [address] [phone] AST 17 10 - 45 Units/L [facility] Comment:Testing performed by : [address] [phone] Blood specimen (specimen) 05/13/2020 10:10 AM CDT 05/13/2020 10:19 AM CDT Pam Aggarwal NP LAB BLOOD ORDERABLES Fi nal Result [facility] [place] [address] * CT chest abdomen pelvis with contrast [...] by: Cliff Bui M.D. Pam Aggarwal NP IMG CT PROCEDURES Final Result documented in this encounter Visit Diagnoses Diagnosis Malignant neoplasm of upper lobe, right bronchus or lung (HCC)- Primary Malignant neoplasm of upper lobe, right bronchus or lung (HCC) documented in this encounter Orders Appointment Requests Count Last Ordered Date Fi rst Ordered Date ONCBCN CLINIC APPOINTMENT REQUEST 2 020 01/15/2020 ONCBCN LAB APPOINTMENT 1 05/13/2020 documented in this encounter Care Teams Solar Manager Relationship Specialty Start Date End Date Paula Robles NP PCP - General 05/31/17 Zeeshan Rain MD Medical Oncologist/Education Finance Processor Medical Oncology 02/11/18 08/23/22 Addy Mathur MD PhD [address] [place] [address] Radiation Oncologist Radiation Oncology 03/10/18 documented as of this encounter
--- OUTSIDE RECORDS SUMMARY | 2024-08-06 17:35 | XMS_ITS | Encounter Summary ---
Author Organization [facility] Address [address] [place] [address] Phone Care Team Providers Care Electronics Installer Name Role Phone Travis Paula Knowles NP Primary Care Provider + Zeeshan Rain MD Unavailable [phone] [facility] PhD Unavailable + [phone] Reason for Referral * Diagnostic Imaging (Routine) - Closed Specialty Diagnoses / Procedures Referred By Alan bangura Referred To Contact Radiology Diagnoses Malignant neoplasm of upper lobe, right bronchus or lung (HCC) Procedures MRI Brain W WO Contrast Zeeshan Rain MD Phone: tel: fax: [address] [address] Referral ID Status Reason Start Date Expiration Date Visits Re quested Visits Authorized [id number] Closed 05/13/2020 06/12/2021 1 1 * Diagnostic Imaging (Routine) - Closed Specialty Diagnoses / Procedures Referred By Alan bangura Referred To Contact Radiology Diagnoses Malignant neoplasm of upper lobe, right bronchus or lung (HCC) Procedures CT Chest Abdomen Pelvis W Contrast Zeeshna Rain MD Phone: tel: fax: [facility] [address] [facility] [place] [address] Referral ID Status Reason Start Date Expiration Date Visits Re quested Visits Authorized [id number] Closed 05/10/2020 06/09/2021 1 1 Encounter Details Date Type Department Care Team (Late st Contact Info) Description 05/13/2020 11:00 AM CDT Office Visit [facility] [address] [facility] 7th [place] [address] [place] [address] Zeeshan Rain MD [address] [place] [address] Malignant neoplasm of upper lobe, right bronchus or lung (CMS/HCC) (Primary Dx); Need for prophylactic vaccination and inoculation against influenza Social History Tobacco Use Types Packs/Day Years Used Date Smoking Tobacco: Former Cigarettes Smokeless Tobacco: Never Comments No Sex and Gender Information Value Date Recorded Sex Assigned at Not on file Legal Sex Female 1:02 AM ANIMAL SITTER Gender Identity Not on file Sexual Orientation Not on file documented as of this encounter Last Filed Vital Signs Vital Sign Reading Time Taken Comments Blood Pressure 159/74 05/13/2020 10:39 AM CDT notified team Pulse 107 05/13/2020 10:39 AM CDT notified team Temperature 36.9 ??C (98.5 ??F) 05/13/2020 1 0:39 AM CDT Respiratory Rate 20 05/13/2020 10:3 9 AM CDT Oxygen Saturation 94% 05/13/2020 10: 39 AM CDT Inhaled Oxygen Concentration - - Weight 111.4 kg (245 lb 9.6 oz) 05/13/2020 10:39 AM CDT Height - - Body Mass Index 45.54 03/18/2020 10:01 AM CDT documented in this encounter Progress Notes * Marysol Matthews NP - 05/13/2020 11:00 AM CDT [facility]PART[facility] OF MEDICINE - MEDICAL ONCOLOGY [address] [place] [phone] PHONE: FAX: Medical Oncology Follow-up Note Oncology History Overview Note DIAGNOSIS: 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 Tumor specimen demonstrates CD56, synaptophysin, cytokeratin, and [...] without new neurological or systemic symptoms. She spoke to Dr. Rain 05/[address] scan. She denies any trouble swallowing, fever/chills. She denies any systemic or neurological symptoms. Her performance status and weight are otherwise stable. PAST MEDICAL HISTORY: 1. COPD/asthma. 2. History of community-acquired pneumonia. 3. Radiographic findings of pulmonary hypertension on CT scan. SOCIAL HISTORY: She is currently retired. 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 She lives in [place], [place]. She quit smoking in 2008 but [...] Systems: All other systems negative Vitals: BP: 159/74 (notified team) Temp: 36.9 ??C (98.5 ??F) Temp src: Oral Pulse: 107 (notified team) Resp: 20 SpO2: 94 % Weight: 111.4 kg (245 lb 9.6 oz) Physical Exam: General: Alert, [...] Lab Results Component Value Date/Time WBC 6.2 05/13/2020 10:10 AM HGB 14.0 05/13/2020 10:10 AM HCT 42.3 05/13/2020 10:10 AM MCV 93.1 05/13/2020 10:10 AM NEUTROABS 4.0 05/13/2020 10:10 AM CMP: Lab Results Component Value Date/Time SODIUM 142 05/13/2020 10:10 AM POTASSIUM 3.2 (L) 05/13/2020 10:10 AM CO2 31 05/13/2020 10:10 AM BUNSER 12 05/13/2020 10:10 AM GLUCOSE 113 05/13/2020 10:10 AM CREATININE 0.60 05/13/2020 10:10 AM CALCIUM 9.7 05/13/2020 10:10 AM CHLORIDE 101 05/13/2020 10:10 AM ALBUMIN 4.2 05/13/2020 10:10 AM AST 17 05/13/2020 10:10 AM ALT 21 05/13/2020 10:10 AM ALKPHOS 94 05/13/2020 10:10 AM BILITOT 0.5 05/13/2020 10:10 AM PROT 7.2 05/13/2020 10:10 AM ANIONGAP 10 05/13/2020 10:10 AM Radiology: Ct Chest Abdomen Pelvis With Contrast Result Date: 05/09/2020 Impression: 1. New cluster of nodules in the [...] seen in a setting of pulmonary hypertension. Assessment and Plan: Gaby Morgan is a 69-year-old lady with limited stage small cell lung cancer for which she received concurrent chemoradiation followed by prophylactic cranial irradiation. Dr. Rain and myself reviewed the most recent CT imaging revealing no obvious evidence of progression. She has no trouble swallowing and no fevers/chills. She will increase her potassium supplement to BID as previously prescribed. .As such, we will plan on seeing her back in 3 months with a repeat CT scan and a brain MRI. She knows to contact us in the interim with any questions or concerns. documented in this encounter Plan of Treatment Not on file documented as of this encounter Results * Comprehensive metabolic panel (08/12/2020 10:06 AM ANIMAL SITTER) Sodium 139 135 - 145 mmol/L CERNER BJ Comment:Testing performed by : [facility], [address] [place] [phone] Potassium, pl 3.3 3.3 - 4.9 mmol/L CERNER BJ Comment:Testing performed by : [facility], [address] [place] [phone] Chloride 98 97 - 110 mmol/L CERNER BJ Comment:Testing performed by : [address] [address] CO2 32 22 - 32 mmol/L CERWILTON BJ Comment:Testing performed by : [facility], [address] [place] [phone] Anion gap 10 2 - 15 mmol/L CERNER BJ Comment:Testing performed by : [address] [address] BUN 13 8 - 25 mg/dL CERNER BJ Comment:Testing performed by : [facility], [address] [place] [phone] Creatinine 0.67 0.60 - 1.10 mg/dL CERNER BJ Comment:Testing performed by : [facility], [address] [place] [phone] Glucose 117 70 - 199 mg/dL CERNER [...] was last revised 2017. Testing performed by: [address] [address] Calcium 9.5 8.5 - 10.3 mg/dL CERNER BJ Comment:Testing performed by : [address] [address] Bilirubin, total 0.8 0.1 - 1.2 mg/dL CERNER BJ Comment:Testing performed by : [facility], [address] [place] [phone] Protein, pl 7.7 6.5 - 8.5 g/dL CERNER BJ Comment:Testing performed by : [address] [address] Albumin 4.4 3.5 - 5.0 g/dL CERNER BJ Comment:Testing performed by : [address] [address] Alk phos 97 40 - 130 Units/L CERNER BJ Comment:Testing performed by : [address] [phone] ALT 21 7 - 45 Units/L CERNER BJ Comment:Testing performed by : [address] [address] AST 18 10 - 45 Units/L CERNER BJ Comment:Testing performed by : [address] [address] Blood specimen (specimen) 08/12/2020 10:06 AM ANIMAL SITTER 08/12/2020 10:08 AM ANIMAL SITTER us Zeeshan Rain MD LAB BLOOD ORDERABLES F inal Result [facility] Department [place] [address] * (ABNORMAL) CBC with auto differential (08/12/2020 10:06 AM ANIMAL SITTER) WBC 6.2 3.8 - 9.8 K/cumm CERWILTON BELLA Comment:Testing performed by : [facility], [address] [place] [phone] Hgb 15.3(H) 12.1 - 15.1 g/dL [facility]IO [place] Comment:Testing performed by : [address] [address] Hct 45.7(H) 36.1 - 44.3 % [facility]IO [facility] Comment:Testing performed by : [address] [address] Plt 216 140 - 440 K/cumm [facility]IO [facility] Comment:Testing performed by : [address] [address] MPV 7.9 6.8 - 10.4 fL CERWILTON BJ Comment:Testing performed by : [address] [address] RBC 4.85 3.90 - 5.00 M/cumm [facility]IO [facility] Comment:Testing performed by : [address] [address] MCV 94.3 80.0 - 97.6 fL [facility]ENIO BJ Comment:Testing performed by : [address] [address] MCH 31.5 26.7 - 33.7 pg CERWILTON BJ Comment:Testing performed by : [address] [address] MCHC 33.5 32.7 - 35.5 g/dL ARSENIO BJ Comment:Testing performed by : [address] [address] RDW CV 13.8 11.8 - 14.6 % [facility]IO [facility] Comment:Testing performed by : [facility], [address] [facility] [address] NRBC abs 0.01 0.00 - 0.01 K/cumm [facility]A Comment:Testing performed by : [facility], [address] [facility] [phone] Blood specimen (specimen) 08/12/2020 10:06 AM ANIMAL SITTER 08/12/2020 10:09 AM ANIMAL SITTER us Zeeshan Rain MD LAB BLOOD ORDERABLES F inal Result [facility] Department [place] [address] * MRI Brain W WO Contrast (08/07/2020 2:46 PM ANIMAL SITTER) Anatomical Region Laterality Modality Head and Neck N/A Magnetic Resonan ce 08/07/2020 3:46 PM ANIMAL SITTER Impressions 08/07/2020 3:47 PM ANIMAL SITTER No evidence of intracranial metastatic disease. Dictated by: Evie Hutchins M.D. The radiology attending physician has personally reviewed this study, and had reviewed and/or edited this written report and agrees with it. Electronically signed by: Bhaskar Cortez M.D. Narrative 08/07/2020 3:47 PM ANIMAL SITTER EXAMINATION: Magnetic resonance imaging (MRI) of the [...] IM MRI PROCEDURES Fin al Result * CT Chest Abdomen Pelvis W Contrast (08/07/2020 1:21 PM ANIMAL SITTER) Anatomical Region Laterality Modality Body N/A Computed Tomogra phy 08/07/2020 1:39 PM ANIMAL SITTER Impressions 08/07/2020 1:39 PM ANIMAL SITTER 1. ??Stable post treatment changes in the right lung. 2. ??No metastatic disease in the chest, abdomen or pelvis. Electronically signed by: Maynor Albrecht M.D. Narrative 08/07/2020 1:39 PM ANIMAL SITTER EXAMINATION: ??Computed tomography of the chest, abdomen and pelvis with intravenous contrast HISTORY: Small cell lung cancer TECHNIQUE: ??Transaxial computed tomographic images of the chest, abdomen and pelvis were obtained with intravenous contrast according to the standard protocol after the uneventful administration of 125 mL Opti-Ray 350 intravenous contrast. COMPARISON: 05/09/2020 FINDINGS: ?? Chest: Right upper and middle lobe volume loss with bronchiectasis and architectural distortion are unchanged. Mild centrilobular emphysema is unchanged. Bilateral lower lobe scarring is unchanged. No pleural effusion, pneumothorax, pneumonia, or suspicious pulmonary nodules. The prior right lower lobe groundglass nodules have resolved. No supraclavicular, axillary, mediastinal, or hilar lymphadenopathy are present. Heart size is normal without pericardial effusion. No central pulmonary embolism. Pulmonary arterial enlargement is unchanged. Abdomen/Pelvis: Diffuse hepatic steatosis and morphologic features of fibrosis are unchanged. The portal hepatic veins are patent. No focal liver lesions or intrahepatic biliary ductal dilation. Cholelithiasis without cholecystitis is unchanged. The spleen is normal size. The pancreas, adrenal glands, and left kidney are normal. A right lower pole indeterminate low-density lesion measuring 44 Hounsfield units and 8 mm at slice position -371 is unchanged. Stomach and duodenum are normal. A fat-containing inguinal hernia is unchanged. The urinary bladder, uterus and adnexa are normal. Colonic diverticulosis without diverticulitis is unchanged. No small bowel, colonic, or appendiceal obstruction or inflammation. No free fluid or free intraperitoneal air. No lymphadenopathy within the abdomen or pelvis. Mild atherosclerotic calcification of the abdominal aorta and its branch vessels without aneurysm. No suspicious bone lesions. Procedure Note Maynor Albrecht MD - 08/07/2020 EXAMINATION: Computed tomography of the chest, abdomen and pelvis with intravenous contrast HISTORY: Small cell lung cancer TECHNIQUE: Transaxial computed tomographic images of the chest, abdomen and pelvis were obtained with intravenous contrast according to the standard protocol after the uneventful administration of 125 mL Opti-Ray 350 intravenous contrast. COMPARISON: 05/09/2020 FINDINGS: Chest: Right upper and middle lobe volume loss with bronchiectasis and architectural distortion are unchanged. Mild centrilobular emphysema is unchanged. Bilateral lower lobe scarring is unchanged. No pleural effusion, pneumothorax, pneumonia, or suspicious pulmonary nodules. The prior right lower lobe groundglass nodules have resolved. No supraclavicular, axillary, mediastinal, or hilar lymphadenopathy are present. Heart size is normal without pericardial effusion. No central pulmonary embolism. Pulmonary arterial enlargement is unchanged. Abdomen/Pelvis: Diffuse hepatic steatosis and morphologic features of fibrosis are unchanged. The portal hepatic veins are patent. No focal liver lesions or intrahepatic biliary ductal dilation. Cholelithiasis without cholecystitis is unchanged. The spleen is normal size. The pancreas, adrenal glands, and left kidney are normal. A right lower pole indeterminate low-density lesion measuring 44 Hounsfield units and 8 mm at slice position -371 is unchanged. Stomach and duodenum are normal. A fat-containing inguinal hernia is unchanged. The urinary bladder, uterus and adnexa are normal. Colonic diverticulosis without diverticulitis is unchanged. No small bowel, colonic, or appendiceal obstruction or inflammation. No free fluid or free intraperitoneal air. No lymphadenopathy within the abdomen or pelvis. Mild atherosclerotic calcification of the abdominal aorta and its branch vessels without aneurysm. No suspicious bone lesions. IMPRESSION: 1. Stable post treatment changes in the right lung. 2. No metastatic disease in the chest, abdomen or pelvis. Electronically signed by: Maynor Albrecht M.D. Zeeshan Rain MD IMG CT PROCEDURES Sada l Result documented in this encounter Visit Diagnoses Diagnosis Malignant neoplasm of upper lobe, right bronchus or lung (HCC)- Primary Need for prophylactic vaccination and inoculation against influenza Malignant neoplasm of upper lobe, right bronchus or lung (HCC) Malignant neoplasm of upper lobe, right bronchus or lung (HCC) documented in this encounter Orders Immunization/Injection Count Last Ordered Date First Ordered Date FLU VACCINE MDCK QUAD PF 4Y+ IM - FLUCELVAX 1 05/13/2020 Appointment Requests Count Last Ordered Date Fi rst Ordered Date ONCBCN CLINIC APPOINTMENT REQUEST 2 021 05/13/2020 ONCBCN LAB APPOINTMENT 1 08/12/2020 documented in this encounter Care Teams Electronics Installer Relationship Specialty Start Date End Date Philip Robleselle JARED Knowles PCP - General 05/31/17 Zeeshan Rain MD Medical Oncologist/Immunohematologist Medical Oncology 02/11/18 08/23/22 Addy Mathur MD PhD [address] [place] [address] Radiation Oncologist Radiation Oncology 03/10/18 documented as of this encounter
--- OUTSIDE RECORDS SUMMARY | 2024-08-06 17:35 | XMS_ITS | Encounter Summary ---
Author Organization [facility] Healthcare Address [address] [place] [address] Care Team Providers Care Stars Specialist Name Role Phone [place]Paula joseph Eleni BIOINFORMATICS PROGRAMMER Primary Care Provider + Zeeshan Rain MD Unavailable [phone] Addy reyna MD PhD Unavailable [phone] Reason for Referral * Diagnostic Imaging (Routine) - Closed Specialty Diagnoses / Procedures Referred By Alan bangura Referred To Contact Radiology Diagnoses Malignant neoplasm of upper lobe, right bronchus or lung (HCC) Procedures CT Chest Abdomen Pelvis W Contrast Zeeshan Rain MD Phone: tel: fax: [address] [address] Referral ID Status Reason Start Date Expiration Date Visits Re quested Visits Authorized [id number] Closed 03/06/2019 09/14/2020 1 1 Reason for Visit * Diagnostic Imaging (Routine) - Closed Specialty Diagnoses / Procedures Referred By Alan bangura Referred To Contact Radiology Diagnoses Malignant neoplasm of upper lobe, right bronchus or lung (HCC) Procedures CT Chest Abdomen Pelvis W Contrast Zeeshan Rain MD Phone: tel: fax: [place] [address] [facility] [place] [address] Referral ID Status Reason Start Date Expiration Date Visits Re quested Visits Authorized [id number] Closed 03/06/2019 09/14/2020 1 1 Encounter Details Date Type Department Care Team (Latest Contact Info) Description 04/27/2019 11:14 AM CDT - 04/27/2019 12:23 PM CDT Hospital Encounter [facility] [place] [address] Zeeshan Rain MD [address] [place] [address] Malignant neoplasm of upper lobe, right bronchus or lung (CMS/HCC) Discharge Disposition: Discharge to home or self care Social History Tobacco Use Types Packs/Day Years Used Date Smoking Tobacco: Former Cigarettes Smokeless Tobacco: Never Comments No Sex and Gender Information Value Date Recorded Sex Assigned at Not on file 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 Post radiation changes in the right lung with stable volume loss compared to most recent prior examination, slightly increased compared to study dated 12/01/2018. Continued attention on follow-up imaging is recommended. 2. No CT evidence of metastatic disease in the abdomen or pelvis. 3. Cholelithiasis. Electronically signed by: Hazel Cabello M.D. Narrative 04/27/2019 1:05 PM CDT EXAMINATION: CT CHEST, ABDOMEN, AND PELVIS WITH CONTRAST HISTORY: 68-year-old woman with small cell lung cancer diagnosed in 2016, status post chemoradiation completed 08/03/2017 and prophylactic whole brain radiation completed 09/24/2017. TECHNIQUE: Computed tomographic images of the chest, abdomen, and pelvis were obtained after the uneventful administration of 100 mL of Optiray-350 intravenous contrast, according to the standard protocol. FINDINGS: Comparison is made to CT dated 03/01/2019 and 12/01/2018. Chest: Centrilobular emphysema is seen. Volume loss is redemonstrated in the right upper and middle lobes. Moderate right middle lobe atelectasis is similar to prior study. Bronchiectasis and architectural distortion is noted in the right upper and lower lobes. No pneumothorax, pleural effusion, or focal consolidation is seen. There is unchanged narrowing of the right mainstem bronchus. No supraclavicular, axillary, mediastinal, or hilar lymphadenopathy is seen. Atherosclerotic calcifications are present within the aorta and its branches. The heart is normal in size without pericardial effusion. No central pulmonary embolism is seen. There is redemonstrated enlargement of the main pulmonary arteries. Abdomen/pelvis: No focal hepatic lesion is seen. No biliary duct dilation is present. Gallstones are present within an otherwise normal gallbladder. The portal and splenic veins are patent. The spleen is normal. Splenule is present. Fatty atrophy of the pancreas is noted. No pancreatic duct dilation is seen. The adrenal glands are normal. Tiny hypoattenuating lesions within the kidneys are too small to characterize and statistically represent cysts. A cyst is present in the interpolar right kidney. No hydronephrosis is seen. The celiac and superior mesenteric arteries are patent. The urinary bladder is normal. The uterus is normal. No adnexal mass is seen. Colonic diverticulosis is seen. The appendix is visualized in the right lower quadrant and is normal. No extraluminal gas or intraperitoneal free fluid is seen. No abdominal or pelvic lymphadenopathy is seen. Diffuse osteopenia is seen. No suspicious lytic or blastic osseous lesion is seen. There is some instrumented fusion of L4 and L5. A fat-containing umbilical hernia is seen. Procedure Note Hazel Cabello MD - 04/27/2019 EXAMINATION: CT CHEST, ABDOMEN, AND PELVIS WITH CONTRAST HISTORY: 68-year-old woman with small cell lung cancer diagnosed in 2017, status post chemoradiation completed 08/03/2017 and prophylactic whole brain radiation completed 09/24/2017. TECHNIQUE: Computed tomographic images of the chest, abdomen, and pelvis were obtained after the uneventful administration of 100 mL of Optiray-350 intravenous contrast, according to the standard protocol. FINDINGS: Comparison is made to CT dated 03/01/2019 and 12/01/2018. Chest: Centrilobular emphysema is seen. Volume loss is redemonstrated in the right upper and middle lobes. Moderate right middle lobe atelectasis is similar to prior study. Bronchiectasis and architectural distortion is noted in the right upper and lower lobes. No pneumothorax, pleural effusion, or focal consolidation is seen. There is unchanged narrowing of the right mainstem bronchus. No supraclavicular, axillary, mediastinal, or hilar lymphadenopathy is seen. Atherosclerotic calcifications are present within the aorta and its branches. The heart is normal in size without pericardial effusion. No central pulmonary embolism is seen. There is redemonstrated enlargement of the main pulmonary arteries. Abdomen/pelvis: No focal hepatic lesion is seen. No biliary duct dilation is present. Gallstones are present within an otherwise normal gallbladder. The portal and splenic veins are patent. The spleen is normal. Splenule is present. Fatty atrophy of the pancreas is noted. No pancreatic duct dilation is seen. The adrenal glands are normal. Tiny hypoattenuating lesions within the kidneys are too small to characterize and statistically represent cysts. A cyst is present in the interpolar right kidney. No hydronephrosis is seen. The celiac and superior mesenteric arteries are patent. The urinary bladder is normal. The uterus is normal. No adnexal mass is seen. Colonic diverticulosis is seen. The appendix is visualized in the right lower quadrant and is normal. No extraluminal gas or intraperitoneal free fluid is seen. No abdominal or pelvic lymphadenopathy is seen. Diffuse osteopenia is seen. No suspicious lytic or blastic osseous lesion is seen. There is some instrumented fusion of L4 and L5. A fat-containing umbilical hernia is seen. IMPRESSION: 1. Post radiation changes in the right lung with stable volume loss compared to most recent prior examination, slightly increased compared to study dated 12/01/2018. Continued attention on follow-up imaging is recommended. 2. No CT evidence of metastatic disease in the abdomen or pelvis. 3. Cholelithiasis. Electronically signed by: Hazel Cabello M.D. Zeeshan [...] imaging, contrast, Starting on La 04/27/19 at 1202, For 1 dose Given 04/27/2019 12:11 PM CDT 125 mL documented in this encounter Orders Medications Ordered That Adam ht Not Have Been Administered Count Last Ordered Date First Ordered Date ioversol (OPTIRAY 350) syrin ge syringe 125 mL 1 04/27/2019 documented in this encounter Care Teams Stars Specialist Relationship Specialty Start Date End Date Paula Robles NP PCP - General 05/31/17 Zeeshan Rain MD Medical Oncologist/Quality Control Lab Technician Medical Oncology 02/11/18 08/23/22 Addy Mathur MD PhD [address] [place] [address] Radiation Oncologist Radiation Oncology 03/10/18 documented as of this encounter
--- OUTSIDE RECORDS SUMMARY | 2024-08-06 17:35 | XMS_ITS | Encounter Summary ---
Author Organization [facility] Address [address] [place] [address] Phone Care Team Providers Care Cyanide Case Hardener Name Role Phone Travis, Paula Eleni COLEMAN Primary Care Provider + Zeeshan Rain MD Unavailable [phone] [facility] Unavailable + [phone] Reason for Referral * Consultation (Routine) - Closed Specialty Diagnoses / Procedures Referred By Alan bangura Referred To Contact Diagnoses Malignant neoplasm of upper lobe, right bronchus or lung (HCC) Zeeshan Rain MD Phone: tel: fax: [facility] (All Locations) Referral ID Status Reason Start Date Expiration Date V isits Requested Visits Authorized [id number] Closed Specialty Services Required 01/15/2020 07/26/2021 1 1 Question Answer Please select the performing region: [facility] (All Locations) [[id number]] # of visits: 1 Comments Request for consult and tx recs re hepatic nodularity concerning for possible cirrhosis noted on 01/11/20 CT. 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 Gender Identity Not on file Sexual Orientation Not on file documented as of this encounter Plan of Treatment Scheduled Referrals Name Type Priority Associated Diagnoses Order Schedule Ambulatory referral to Hepatology Outpatient Referral Routine Malignant neoplasm of upper lobe, right bronchus or lung (CMS/HCC) Ordered: 01/15/2020 documented as of this encounter Visit Diagnoses Diagnosis Malignant neoplasm of upper lobe, right bronchus or lung (HCC)- Primary documented in this encounter Care Teams Cyanide Case Hardener Relationship Specialty Start Date End Date Paula Robles NP PCP - General 05/31/17 Zeeshan Rain MD Medical Oncologist/Machine Operations Supervisor Medical Oncology 02/11/18 08/23/22 Addy Mathur MD PhD [address] [place] [address] Radiation Oncologist Radiation Oncology 03/10/18 documented as of this encounter
--- OUTSIDE RECORDS SUMMARY | 2024-08-06 17:35 | XMS_ITS | Encounter Summary ---
Author Organization [facility] Address [address] [place] [address] Care Team Providers Care College Coach Name Role Phone Paula Robles DIRECTOR AMBULATORY Primary Care Provider + Zeeshan Rain MD Unavailable [phone] Addy reyna MD PhD Unavailable + [phone] Reason for Referral * Diagnostic Imaging (Routine) - Closed Specialty Diagnoses / Procedures Referred By Alan bangura Referred To Contact Diagnoses Malignant neoplasm of right lung, unspecified part of lung (HCC) Procedures [place] Modified Barium Swallow W Video Zeeshan Rain MD Phone: tel: fax: [address] [address] Referral ID Status Reason Start Date Expiration Date Visits Re quested Visits Authorized [id number] Closed 12/20/2018 06/30/2020 1 1 Reason for Visit * Diagnostic Imaging (Routine) - Closed Specialty Diagnoses / Procedures Referred By Alan bangura Referred To Contact Diagnoses Malignant neoplasm of right lung, unspecified part of lung (HCC) Procedures [place] Modified Barium Swallow W Video Zeeshan Rain MD Phone: tel: fax: [address] [facility] [place] [address] Referral ID Status Reason Start Date Expiration Date Visits Re quested Visits Authorized [id number] Closed 12/20/2018 06/30/2020 1 1 Encounter Details Date Type Department Care Team (Latest Contact Info) Description 01/11/2019 9:41 AM CDT - 01/11/2019 11:59 PM CDT Hospital Encounter [facility] [address] [place] [address] Zeeshan Rain MD [address] [place] [address] Malignant neoplasm of right lung, unspecified part of lung (CMS/HCC) Discharge Disposition: Discharge to home or self care Social History Tobacco Use Types Packs/Day Years Used Date Smoking Tobacco: Former Cigarettes Smokeless Tobacco: Never Comments No Sex and Gender Information Value Date Recorded Sex Assigned at Not on file Legal Sex Female 1:02 AM COVER REMOVER Gender Identity Not on file Sexual Orientation Not on file documented as of this encounter Medications at Time of Discharge furosemide (LASIX) 40 mg tablet TK 1 [...] MEQ) BY MOUTH TWICE DAILY 60 tablet 12/20/2018 9 predniSONE (DELTASONE) 20 mg tablet TK 1 [...] Procedure Name Priority Date/Time Associated Diagnosis Comments [place] MODIFIED BARIUM SWALLOW W VIDEO Schedule Routine, Read Routine (OP Routine) 01/11/2019 10:15 AM CDT Malignant neoplasm of right lung, unspecified part of lung (CMS/HCC) documented in this encounter Results * FL Modified Barium [...] of lung (HCC) documented in this encounter Administered Medications Inactive Administered Medications - up to 3 most recent administrations Medication Order MAR Action Action Date Dose Rate Site barium sulfate (VARIBAR PUDDING) 40 % (w/v), 30% (w/w) pudding oral, Once in imaging, contrast, Starting on Wed01/11/19 at 1015, For 1 dose, Indications: Digestive System RadiographyIndications:Digestive System Radiography Given 01/11/2019 10:05 AM CDT 20 mL barium sulfate (VARIBAR THIN LIQUID) 40 % (w/v) thin liquid oral, Once in imaging, contrast, Starting on Wed01/11/19 at 1015, For 1 dose, Indications: Digestive System RadiographyIndications:Digestive System Radiography Given 01/11/2019 10:07 AM CDT 50 mL documented in this encounter Care Teams College Coach Relationship Specialty Start Date End Date Paula Robles NP PCP - General 05/31/17 Zeeshan Rain MD Medical Oncologist/Hot Mill Operator Medical Oncology 02/11/18 08/23/22 Addy Mathur MD PhD [address] [place] [address] Radiation Oncologist Radiation Oncology 03/10/18 documented as of this encounter
--- OUTSIDE RECORDS SUMMARY | 2024-08-06 17:35 | XMS_ITS | Encounter Summary ---
Author Organization [facility] Facility Care Team Providers Care Supervisor Inspection Room Name Role Phone Paula Robles PIPER INSTALLER Primary Care Provider + Zeeshan Rain MD Unavailable [phone] Addy Mathur MD PhD Unavailable [phone] Encounter Details Date Type Department Care Team (Latest Contact Info) Description 09/18/2019 Travel Social History Tobacco Use Types Packs/Day Years Used Date Smoking Tobacco: Former Cigarettes Smokeless Tobacco: Never Comments No Sex and Gender Information Value Date Recorded Sex Assigned at Not on file Legal Sex Female 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
--- OUTSIDE RECORDS SUMMARY | 2024-08-06 17:35 | XMS_ITS | Encounter Summary ---
Author Organization [facility] Address [address] [place] [address] Care Team Providers Care Product Consultant Name Role Phone Paula Robles Eleni CREDIT REFERENCE CLERK Primary Care Provider + Zeeshan Rain MD Unavailable [phone] Addy reyna MD PhD Unavailable + [phone] Reason for Referral * Diagnostic Imaging (Routine) - Closed Specialty Diagnoses / Procedures Referred By Alan bangura Referred To Contact Radiology Diagnoses Malignant neoplasm of upper lobe, right bronchus or lung (HCC) Procedures CT Chest Abdomen Pelvis W Contrast Zeeshan Rain MD Phone: tel: fax: [address] [address] Referral ID Status Reason Start Date Expiration Date Visits Re quested Visits Authorized [id number] Closed 05/10/2020 06/09/2021 1 1 OR AIR DIRECTOR Reason for Visit * Diagnostic Imaging (Routine) - Closed Specialty Diagnoses / Procedures Referred By Alan bangura Referred To Contact Radiology Diagnoses Malignant neoplasm of upper lobe, right bronchus or lung (HCC) Procedures CT Chest Abdomen Pelvis W Contrast Zeeshan Rain MD Phone: tel: fax: [place] [address] [place] [address] Referral ID Status Reason Start Date Expiration Date Visits Re quested Visits Authorized [id number] Closed 05/10/2020 06/09/2021 1 1 Encounter Details Date Type Department Care Team (Latest Contact Info) Description 08/07/2020 12:40 PM SENIOR AIR DIRECTOR Hospital Encounter [facility] [address] [place] [address] Zeeshan Rain MD [address] [place] [address] Malignant neoplasm of upper lobe, right bronchus or lung (CMS/HCC) Discharge Disposition: Discharge to home or self care Social History Tobacco Use Types Packs/Day Years Used Date Smoking Tobacco: Former Cigarettes Smokeless Tobacco: Never Comments No Sex and Gender Information Value Date Recorded Sex Assigned at Not on file Legal Sex Female 1:02 AM SENIOR AIR DIRECTOR Gender Identity Not on file Sexual [...] Schedule Routine, Read Routine (OP Routine) 08/07/2020 1:21 PM SENIOR AIR DIRECTOR Malignant neoplasm of upper lobe, right bronchus or lung (CMS/HCC) documented in this encounter Results * CT Chest Abdomen Pelvis W Contrast (08/07/2020 1:21 PM SENIOR AIR DIRECTOR) Anatomical Region Laterality Modality Body N/A Computed Tomogra phy 08/07/2020 1:39 PM SENIOR AIR DIRECTOR Impressions 08/07/2020 1:39 PM SENIOR AIR DIRECTOR 1. ??Stable post treatment changes in the right lung. 2. ??No metastatic disease in the chest, abdomen or pelvis. Electronically signed by: Maynor Albrecht M.D. Narrative 08/07/2020 1:39 PM SENIOR AIR DIRECTOR EXAMINATION: ??Computed tomography of the chest, abdomen [...] by: Maynor Albrecht M.D. Zeeshan Rain MD IM CT PROCEDURES Sada l Result documented in [...] in imaging, contrast, Starting on Wed08/07/20 at 1313, For 1 dose Given 08/07/2020 1:18 PM SENIOR AIR DIRECTOR 125 mL documented in this encounter Orders Medications Ordered That Adam ht Not Have Been Administered Count Last Ordered Date First Ordered Date ioversoL (OPTIRAY 350) syrin ge syringe 125 mL 1 08/07/2020 documented in this encounter Care Teams Product Consultant Relationship Specialty Start Date End Date Paula Robles NP PCP - General 05/31/17 Zeeshan Rain MD Medical Oncologist/Party Plan Sales Host/Hostess Medical Oncology 02/11/18 08/23/22 Addy Mathur MD PhD [address] [place] [address] Radiation Oncologist Radiation Oncology 03/10/18 documented as of this encounter
--- OUTSIDE RECORDS SUMMARY | 2024-08-06 17:35 | XMS_ITS | Encounter Summary ---
Author Organization [facility] Address [address] [place] [address] Phone Care Team Providers Care Sorting Machine Attendant Name Role Phone Travis Paula Knowles NP Primary Care Provider + Zeeshan Rain MD Unavailable [phone] Addy reyna MD PhD Unavailable + [phone] Encounter Details Date Type Department Care Team (Late st Contact Info) Description 07/31/2020 Orders Only [facility] On[facility] [address] [facility] 7th [place] [address] [place] [address] Zeeshan Rain MD [address] [place] [address] Social History Tobacco Use Types Packs/Day Years Used Date Smoking Tobacco: Former Cigarettes Smokeless Tobacco: Never Comments No Sex and Gender Information Value Date Recorded Sex Assigned at Not on file Legal Sex Female 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 Gender Identity Not on file Sexual Orientation Not on file documented as of this encounter Ordered Prescriptions Prescription Sig Dispense Quantity Refills Last Filled Start Date End Date potassium chloride ER (potassium chloride ER) 20 mEq CR tablet Take 1 tablet (20 mEq total) by mouth 2 (two) times a day 60 tablet 07/31/2020 09/02/2020 documented in this encounter Plan of Treatment Not on file documented as of this encounter Visit Diagnoses Not on filedocumented in this encounter Discontinued Medications Medication Sig Discontinue Reason Start Date End Da te potassium chloride ER (potassium chloride ER) 20 mEq CR tablet Take 1 tablet (20 mEq total) by mouth 2 (two) times a day Reorder 10/25/2019 07/31/2020 documented as of this encounter Care Teams Sorting Machine Attendant Relationship Specialty Start Date End Date Paula Robles NP PCP - General 05/31/17 Zeeshan Rain MD Medical Oncologist/Investigative Shopper Medical Oncology 02/11/18 08/23/22 Addy Mathur MD PhD [address] [place] [address] Radiation Oncologist Radiation Oncology 03/10/18 documented as of this encounter
--- OUTSIDE RECORDS SUMMARY | 2024-08-06 17:35 | XMS_ITS | Encounter Summary ---
Author Organization [facility] Healthcare Address [address] [place] [address] Care Team Providers Care Compugraph Operator Name Role Phone Philip Robleselle Eleni TECHNICAL ACCOUNT REPRESENTATIVE Primary Care Provider + Zeeshan Rain MD Unavailable [phone] Addy reyna MD PhD Unavailable + [phone] Reason for Visit * Reason Comments GENERAL ROAD SUPERVISOR Initial Evaluation VFSS Swallow Stud y * Diagnostic Imaging (Routine) - Closed Specialty Diagnoses / Procedures Referred By Contac t Referred To Contact Diagnoses Malignant neoplasm of right lung, unspecified part of lung (HCC) Procedures [place] Modified Barium Swallow W Video Zeeshan Rain MD Phone: tel: fax: [address] [address] Referral ID Status Reason Start Date Expiration Date Visits Re quested Visits Authorized [id number] Closed 12/20/2018 06/30/2020 1 1 Encounter Details Date Type Department Care Team (Late st Contact Info) Description 01/11/2019 10:00 AM CDT Therapy [facility] Speech Therapy [address] [place] [address] Malignant neoplasm of upper lobe of right lung (CMS/HCC) (Primary Dx) Social History Tobacco Use Types Packs/Day Years Used Date Smoking Tobacco: Former Cigarettes Smokeless Tobacco: Never Comments No Sex and Gender Information Value Date Recorded Sex Assigned at Not on file Legal Sex Female 1:02 AM SHEET ROCK APPLICATOR Gender Identity Not on file Sexual Orientation Not on file documented as of this encounter Progress Notes * Angela Choudhury, GUNNAR - 01/11/2019 10:00 AM CDT LOCATED WITHIN [facility] Outpatient Modified Barium Swallow Study HPI: Patient reports with c/f aspiration following CXR and Chest CT imaging with ground-glass opacities in right and left lung. PMH: Limited stage small cell lung cancer for which she received concurrent chemoradiation followedby prophylactic cranial irradiation. Hx of COPD/Asthma RECOMMENDATIONS Clinical Impression: Patient's swallowing mechanism is WFL at this time. No oral-pharyngeal deficits or weakness noted. No oral/pharyngeal residue. No laryngeal penetration or aspiration visualized. Professional Recommendations: The follow consistencies are recommended based on the results of thisstudy. LIQUIDS: Regular SOLIDS: Regular Modifications: n/a Assistance Required: None Medication Administration:as tolerated Recommendations made in collaboration with: physician and patient Outpatient Intervention Indicated:no Describe Follow Up Treatment Needs: n/a Additional Referrals: none Prognosis: excellent GENERAL INFORMATION Prior Level of Function/Baseline Feeding Status: No prior hx of dysphagia Pain: 0 Bone Cooking Operator Used: NOT APPLICABLE Patient Stated Goal: None stated, though states she is appreciative of any testing recommendations Patient Complaints: None stated General Observations: Patient is pleasant, talkative, good historian Current Feeding Status/Diet: Regular diet, thin liquids Tracheostomy/Pulmonary Status: RA, Hx of COPD, smoking history Purpose and Procedure of Modified Barium Swallow Study: Modified Barium Swallow Study completed to assess oropharyngeal swallow function and safety/efficiency of the swallow so that diet recommendations can be made. This test is completed in conjunction with Radiology. Results of this test are indicative of performance at the time of the exam. Standard procedure is in lateral view at 90 degrees. Oral Mechanism Exam: WFL Consistencies Administered: thin, puree and solid Administered consistencies contain barium product. [place] ORAL PARAMETERS Labial Closure 0 = No Significant Impairment- Full labial seal around spoon, cup, straw, with no anterior leakage Lingual Control 0 = No Significant Impairment- Forms cohesive bolus for oral to pharyngeal transfer & uses efficient lingual search for loose food particles. Palatal Closure 0 = No Significant Impairment- Complete lingual to palatal approximation during bolus preparation (when appropriate) to inhibit premature spillage Mastication 0 = No Significant Impairment- Masticates food successfully, full breakdown before transfer ORAL PHARYNGEAL TRANSIT Position of bolus at onset of swallow 0 = No Significant Impairment- Swallow initiated at or before bolus reaches vallecular cavity Relative timing of onset of swallow 0 = No Significant Impairment- Pharyngeal swallow initiated within 1 second of propulsion of bolus from oral cavity; slightly longer for advanced age [80+years] PHARYNGEAL PARAMETERS Velopharyngeal Closure 0 = No Significant Impairment- Full velopharyngeal closure during swallow-no nasal regurgitation Pharyngeal Contraction/Bolus Propulsion 0 = No Significant Impairment- Pharyngeal contraction is adequate to fully expel bolus from pharyngeal cavities; BOT to PPW approximation is complete. Bolus passes smoothly through pharynx, superior to inferior, no oscillation of bolus consistent with poor pharyngeal coordination Laryngeal Excursion 0 = No Significant Impairment- Laryngeal excursion is adequate to facilitate epiglottic to arytenoid closure & UES opening CRICO-ESOPHAGEAL PARAMETERS [Refer to radiologists report for details of esophageal function] Bolus Propulsion through UES 0 = No Significant Impairment- No pyriform sinus residual with the exception of slight coating; suggestive of adequate opening of cricopharyngeal sphincter to allow full bolus of all textures to passinto the esophagus. Clearance of Pyriform Sinus Residual 0 = No Significant Impairment- Bolus clears the pyriform sinus region on the first swallow with only slight coating of stickier textures Upper Esophageal Parameters 0 = No Significant Impairment- Esophageal motility is intact; there are no anatomic or physiologic abnormalities. LARYNGEAL PARAMETERS Aspiration/Penetration 0 = No Significant Impairment- There is no aspiration observed in any phase of the swallow. Airway Reaction 0 = No Significant Impairment- Patient presents strong, productive volitional cough Respiratory Support 0 = No Significant Impairment- Respiratory support is adequate for speech & swallowing Vocal Quality 0 = No Significant Impairment- Vocal quality is clear & strong; No wet dysphonia or documented vocal pathology Thin Liquids: Penetration Aspiration Scale-Thin: 1- Material does not enter the airway Purees: Penetration Aspiration Scale-Puree: 1- Material does not enter the airway Solids: Penetration Aspiration Scale-Solids: 1- Material does not enter the airway Dysphagia Outcome and Severity Scale Full per-oral nutrition (P.O): Normal diet Level 7: Normal in all situations Discharge Summary Statement If this is the last swallow therapy visit, this serves as the discharge summary. TIME IN: 10:04 TIME OUT: 10:18 (10:20-10:27 utilized for study review) documented in this encounter Plan of Treatment Not on file documented as of this encounter Visit Diagnoses Diagnosis Malignant neoplasm of upper lobe of right lung (HCC)- Primary documented in this encounter Care Teams Compugraph Operator Relationship Specialty Start Date End Date Paula Robles NP PCP - General 05/31/17 Zeeshan Rain MD Medical Oncologist/Print Room Worker Medical Oncology 02/11/18 08/23/22 Addy Mathur MD PhD [address] [place] [address] Radiation Oncologist Radiation Oncology 03/10/18 documented as of this encounter
--- OUTSIDE RECORDS SUMMARY | 2024-08-06 17:35 | XMS_ITS | Encounter Summary ---
Author Organization [facility] Address [address] [place] [address] Phone Care Team Providers Care Tibco Developer Name Role Phone Travis Paula Knowles NP Primary Care Provider + Zeeshan Rain MD Unavailable [phone] [facility] Unavailable + [phone] Reason for Referral * Diagnostic Imaging (Routine) - Closed Specialty Diagnoses / Procedures Referred By Alan bangura Referred To Contact Radiology Diagnoses Malignant neoplasm of upper lobe, right bronchus or lung (HCC) Procedures MRI Brain W WO Contrast Zeeshan Rain MD Phone: tel: fax: [address] [address] Referral ID Status Reason Start Date Expiration Date Visits Re quested Visits Authorized [id number] Closed 09/18/2019 03/29/2021 1 1 ANICAL MAINTENANCE WORKER * Diagnostic Imaging (Routine) - Closed Specialty Diagnoses / Procedures Referred By Alan bangura Referred To Contact Radiology Diagnoses Malignant neoplasm of upper lobe, right bronchus or lung (HCC) Procedures CT Chest Abdomen Pelvis W Contrast Zeeshan Rain MD Phone: tel: fax: [facility] 1 [facility] [place] [address] Referral ID Status Reason Start Date Expiration Date Visits Re quested Visits Authorized [id number] Closed 09/18/2019 03/29/2021 1 1 ANICAL MAINTENANCE WORKER Encounter Details Date Type Department Care Team (Late st Contact Info) Description 09/18/2019 11:00 AM MECHANICAL MAINTENANCE WORKER Office Visit [facility] Oncology [address] 7th [place] [address] [place] [phone] Zeeshan Rain MD [address] [facility] [address] [place] [address] Malignant neoplasm of upper lobe, right bronchus or lung (CMS/HCC) (Primary Dx) Social History Tobacco Use Types Packs/Day Years Used Date Smoking Tobacco: Former Cigarettes Smokeless Tobacco: Never Comments No Sex and Gender Information Value Date Recorded Sex Assigned at Not on file Legal Sex Female 1:02 AM MECHANICAL 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 Gender Identity Not on file Sexual Orientation Not on file documented as of this encounter Last Filed Vital Signs Vital Sign Reading Time Taken Comments Blood Pressure 134/81 09/18/2019 11:19 AM MECHANICAL MAINTENANCE WORKER Pulse 94 09/18/2019 11:19 AM MECHANICAL MAINTENANCE WORKER Temperature 36.9 ??C (98.4 ??F) 09/18/2019 1 1:19 AM MECHANICAL MAINTENANCE WORKER Respiratory Rate 18 09/18/2019 11:1 9 AM MECHANICAL MAINTENANCE WORKER Oxygen Saturation 93% 09/18/2019 11: 19 AM MECHANICAL MAINTENANCE WORKER Inhaled Oxygen Concentration - - Weight 110.9 kg (244 lb 6.4 oz) 020 11:19 AM MECHANICAL MAINTENANCE WORKER Height 156.4 cm (5' 1.58 ) 09/18/2019 1 1:19 AM MECHANICAL MAINTENANCE WORKER Body Mass Index 45.32 09/18/2019 11:19 AM MECHANICAL MAINTENANCE WORKER documented in this encounter Progress Notes * Uma Gomez MD PhD - 09/18/2019 11:00 AM CST [facility] DEPARTMENT OF MEDICINE - MEDICAL ONCOLOGY [address], 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 Tumor specimen demonstrates CD56, synaptophysin, cytokeratin, and [...] which is related to her underlying COPD, with no changes. She continues to follow with a protective officer and uses supplemental oxygen at night. She denies any systemic or neurological symptoms. Her performance status and weight are otherwise stable. Her recent PET scan on 09/15 does not demonstrate any evidence concerning for progression. PAST MEDICAL HISTORY: 1. COPD/asthma. 2. History of community-acquired pneumonia. 3. Radiographic findings of pulmonary hypertension on CT scan. SOCIAL HISTORY: She is currently retired. 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 She lives in [place], [place]. She quit smoking in 2008 but [...] Systems: All other systems negative Vitals: BP: 134/81 Temp: 36.9 ??C (98.4 ??F) Temp src: Oral Pulse: 94 Resp: 18 SpO2: 93 % Height: 156.4 cm (5' 1.58 ) Weight: 110.9 kg (244 lb 6.4 oz) Physical Exam: General: Alert, awake and [...] CBC: Lab Results Component Value Date/Time WBC 7.2 09/18/2019 10:29 AM HGB 14.4 09/18/2019 10:29 AM HCT 43.3 09/18/2019 10:29 AM MCV 94.0 09/18/2019 10:29 AM NEUTROABS 4.0 09/18/2019 10:29 AM CMP: Lab Results Component Value Date/Time SODIUM 143 09/18/2019 10:02 AM POTASSIUM 3.0 (L) 09/18/2019 10:02 AM CO2 33 (H) 09/18/2019 10:02 AM BUNSER 14 09/18/2019 10:02 AM GLUCOSE 116 09/18/2019 10:02 AM CREATININE 0.71 09/18/2019 10:02 AM CALCIUM 9.2 09/18/2019 10:02 AM CHLORIDE 98 09/18/2019 10:02 AM ALBUMIN 4.3 09/18/2019 10:02 AM AST 25 09/18/2019 10:02 AM ALT 26 09/18/2019 10:02 AM ALKPHOS 87 09/18/2019 10:02 AM BILITOT 0.6 09/18/2019 10:02 AM PROT 7.5 09/18/2019 10:02 AM ANIONGAP 12 09/18/2019 10:02 AM Radiology: IMPRESSION (PET/CT 09/15/2019): 1. Stable post-treatment changes in the right upper and lower lobes without evidence of recurrent disease. 2. Unchanged 2 mm left upper lobe pulmonary nodule. IMPRESSION (PET/CT 06/23/19): 1. Resolution of intense [...] in 4 months with a repeat CT scan and brain MRI. She knows to contact us in the interim with any questions or concerns. She will continue to follow with her protective officer for management of her COPD. Uma Gomez MD PhD PGY4 Hematology Oncology fellow Cosigned by Zeeshan Rain MD at 09/19/2019 11:04 AM MECHANICAL MAINTENANCE WORKER ANICAL MAINTENANCE WORKER ANICAL MAINTENANCE WORKER Associated attestation - Zeeshan Rain MD - 09/19/2019 11:04 AM MECHANICAL MAINTENANCE WORKER I have seen and examined .Gaby Morgan on 09/18/2019 I agree with the findings and plan of care as documented in the resident/fellow's note. Zeeshan Rain MD Zoning Administratordetail assembler Division of Medical Oncology [facility] in [facility] Please note: Muck Boss was completed by using M*Solutionary Fluency Direct speaking software, variances may therefore occur. documented in this encounter Plan of Treatment Not on file documented as of this encounter Results * Comprehensive metabolic panel (01/15/2020 10:07 AM CDT) Sodium 139 135 - 145 mmol/L ARSENIO BELLA Comment:Testing performed by : [facility], [address] [place] [phone] Potassium, pl 3.9 3.3 - 4.9 mmol/L ARSENIO EBLLA Comment:Testing performed by : [facility], [address] [place] [phone] Chloride 101 97 - 110 mmol/L CERNER BJ Comment:Testing performed by : [facility], [address] [place] [phone] CO2 28 22 - 32 mmol/L CERNER BJ Comment:Testing performed by : [facility], [address] [place] [phone] Anion gap 10 2 - 15 mmol/L CERNER BJ Comment:Testing performed by : [facility], [address] [place] [phone] BUN 12 8 - 25 mg/dL CERNER BJ Comment:Testing performed by : [facility], [address] [place] [phone] Creatinine 0.67 0.60 - 1.10 mg/dL CERNER BJ Comment:Testing performed by : [facility], [address] [place] [phone] Glucose 98 70 - 199 mg/dL CERNER [...] was last revised 2017. Testing performed by: [facility], [address] [place] [phone] Calcium 9.6 8.5 - 10.3 mg/dL CERNER BJ Comment:Testing performed by : [facility], [address] [place] [phone] Bilirubin, total 0.5 0.1 - 1.2 mg/dL CERNER BJ Comment:Testing performed by : [address] [phone] Protein, pl 7.1 6.5 - 8.5 g/dL CERNER BJ Comment:Testing performed by : [facility], [address] [place] [phone] Albumin 4.2 3.5 - 5.0 g/dL ARSENIO BELLA Comment:Testing performed by : [facility], [address] [place] [phone] Alk phos 90 40 - 130 Units/L ARSENIO BELLA Comment:Testing performed by : [facility], [address] [place] [phone] ALT 19 7 - 45 Units/L ARSENIO BELLA Comment:Testing performed by : [facility], [address] [place] [phone] AST 15 10 - 45 Units/L [facility]IO [facility] Comment:Testing performed by : [facility], [address] [place] [phone] Blood specimen (specimen) 01/15/2020 10:07 AM CDT 01/15/2020 10:11 AM CDT Zeeshan Rain MD LAB BLOOD ORDERABLES F inal Result [facility]IO [facility] One [facility] [place] [address] * CBC with auto differential (01/15/2020 10:07 AM CDT) WBC 5.0 3.8 - 9.8 K/cumm [facility]IO [facility] Comment:Testing performed by : [facility], [address] [place] [phone] Hgb 13.7 12.1 - 15.1 g/dL ARSENIO BELLA Comment:Testing performed by : [facility], [address] [place] [phone] Hct 40.8 36.1 - 44.3 % ARSENIO BELLA Comment:Testing performed by : [facility], [address] [place] [phone] Plt 222 140 - 440 K/cumm ARSENIO BELLA Comment:Testing performed by : [facility], [address] [place] [phone] MPV 7.6 6.8 - 10.4 fL ARSENIO BELLA Comment:Testing performed by : [facility], [address] [place], [place] [phone] RBC 4.39 3.90 - 5.00 M/cumm [facility] Comment:Testing performed by : [facility], [address] [place], [place] [phone] MCV 92.9 80.0 - 97.6 fL [facility]IO [facility] Comment:Testing performed by : [facility], [address] [place] [phone] MCH 31.1 26.7 - 33.7 pg [facility]IO [facility] Comment:Testing performed by : [facility], [address] [place] [phone] MCHC 33.5 32.7 - 35.5 g/dL [facility] Comment:Testing performed by : [facility], [address] [place], [place] [phone] RDW CV 13.7 11.8 - 14.6 % [facility]IO [facility] Comment:Testing performed by : [facility], [address] [place] [phone] NRBC abs 0.00 0.00 - 0.01 K/cumm [facility] Comment:Testing performed by : [facility], [address] [place], [place] [phone] Blood specimen (specimen) 01/15/2020 10:07 AM CDT 01/15/2020 10:11 AM CDT us Zeeshan Rain MD LAB BLOOD ORDERABLES F inal Result [facility] Department [place] [address] * MRI Brain W WO Contrast (01/11/2020 [...] by: Isaiah Mendez M.D. Zeeshan Rain MD IMG MRI PROCEDURES [...] Date ONCBCN CLINIC APPOINTMENT REQUEST 2 020 09/18/2019 ONCBCN LAB APPOINTMENT 1 01/15/2020 documented in this encounter Care Teams Tibco Developer Relationship Specialty Start Date End Date Paula Robles NP PCP - General 05/31/17 Zeeshan Rain MD Medical Oncologist/Boat Buffer Plastic Medical Oncology 02/11/18 08/23/22 Addy Mathur MD PhD [address] [place] [address] Radiation Oncologist Radiation Oncology 03/10/18 documented as of this encounter
--- OUTSIDE RECORDS SUMMARY | 2024-08-06 17:35 | XMS_ITS | Encounter Summary ---
Author Organization [facility] Address [address] [place] [address] Phone Care Team Providers Care Ferry Terminal Supervisor Name Role Phone Travis Paula Knowles NP Primary Care Provider + Zeeshan Rain MD Unavailable [phone] [facility] PhD Unavailable [phone] Reason for Referral * Diagnostic Imaging (Routine) - Closed Specialty Diagnoses / Procedures Referred By Alan bangura Referred To Contact Radiology Diagnoses Malignant neoplasm of upper lobe, right bronchus or lung (HCC) Procedures MRI Brain W WO Contrast Zeeshan Rain MD Phone: tel: fax: [address] [address] Referral ID Status Reason Start Date Expiration Date Visits Re quested Visits Authorized [id number] Closed 03/06/2019 09/14/2020 1 1 * Diagnostic Imaging (Routine) - Closed Specialty Diagnoses / Procedures Referred By Alan bangura Referred To Contact Radiology Diagnoses Malignant neoplasm of upper lobe, right bronchus or lung (HCC) Procedures CT Chest Abdomen Pelvis W Contrast Zeeshan Rain MD Phone: tel: fax: [facility] 1 [facility] [place] [address] Referral ID Status Reason Start Date Expiration Date Visits Re quested Visits Authorized [id number] Closed 03/06/2019 09/14/2020 1 1 Encounter Details Date Type Department Care Team (Late st Contact Info) Description 03/06/2019 11:00 AM CDT Office Visit 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 Gender Identity Not on file Sexual Orientation Not on file documented as of this encounter Last Filed Vital Signs Vital Sign Reading Time Taken Comments Blood Pressure 136/80 03/06/2019 10:18 AM CDT Pulse 81 03/06/2019 10:18 AM CDT Temperature 36.7 ??C (98.1 ??F) 03/06/2019 1 0:18 AM CDT Respiratory Rate 18 03/06/2019 10:1 8 AM CDT Oxygen Saturation 92% 03/06/2019 10: 18 AM CDT Inhaled Oxygen Concentration - - Weight 109.6 kg (241 lb 9.6 oz) 019 10:18 AM CDT Height - - Body Mass Index 44.19 06/09/2018 2:13 PM CDT documented in this encounter Ordered Prescriptions Prescription Sig Dispense Quantity Refills Last Filled Start Date End Date azithromycin (ZITHROMAX) 250 mg tablet Take 1 tablet (250 mg total) by mouth daily for 5 days Take 2 tablets the first day, then 1 tablet daily for 4 days. 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 Tumor specimen demonstrates CD56, synaptophysin, cytokeratin, and [...] exertion. She continues to follow with a public service officer omit some changes to her inhaler regimen. She was also recently prescribed supplemental oxygen with exertion, since her saturationsoccasionally seem to drop below 90%. She denies any systemic or neurological symptoms. Her performance status and weight are otherwise stable. Her recent scans continue to demonstrate stability without evidence for unequivocal progression. There however seems to be increased airspace opacification in the right upper lobe, possibly related to an inflammatory/infectious etiology. PAST MEDICAL HISTORY: 1. COPD/asthma. 2. History of community-acquired pneumonia. 3. Radiographic findings of pulmonary hypertension on CT scan. SOCIAL HISTORY: She is currently retired. 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 She lives in [place], [place]. She quit smoking in 2008 but [...] Systems: All other systems negative Vitals: BP: 136/80 Temp: 36.7 ??C (98.1 ??F) Temp src: Oral Pulse: 81 Resp: 18 SpO2: 92 % Weight: 109.6 kg (241 lb 9.6 oz) Physical Exam: General: Alert, [...] CBC: Lab Results Component Value Date/Time WBC 4.9 03/06/2019 09:55 AM HGB 13.8 03/06/2019 09:55 AM HCT 39.8 03/06/2019 09:55 AM MCV 91.0 03/06/2019 09:55 AM NEUTROABS 2.8 03/06/2019 09:55 AM CMP: Lab Results Component Value Date/Time SODIUM 142 03/06/2019 09:55 AM POTASSIUM 3.7 03/06/2019 09:55 AM CO2 30 03/06/2019 09:55 AM BUNSER 14 03/06/2019 09:55 AM GLUCOSE 103 03/06/2019 09:55 AM CREATININE 0.62 03/06/2019 09:55 AM CALCIUM 9.3 03/06/2019 09:55 AM CHLORIDE 100 03/06/2019 09:55 AM ALBUMIN 4.1 03/06/2019 09:55 AM AST 19 03/06/2019 09:55 AM ALT 20 03/06/2019 09:55 AM ALKPHOS 88 03/06/2019 09:55 AM BILITOT 0.5 03/06/2019 09:55 AM PROT 7.1 03/06/2019 09:55 AM ANIONGAP 12 03/06/2019 09:55 AM Radiology: ?? IMPRESSION (CT 03/01/19): ?? 1. Increased airspace opacity in the right suprahilar region and medial right upper lobe. Given the associated finding of progressive volume loss, this is favored to represent atelectasis, possibly in the setting of infection given the new adjacent areas of tree-in-bud nodularity. Consider 3 month interval follow-up to see if this finding persists or result. If persistent, consider PET/CT for further evaluation at that time. ?? 2. No evidence of metastatic disease in the chest, abdomen, or pelvis. Assessment and Plan: Gaby Morgan is a 68-year-old lady with limited stage small cell lung cancer for which she received concurrent chemoradiation followed by prophylactic cranial irradiation. Her scan today show no evidence of progression as such; however, the etiology of the increased opacification in her right upper lobe is unclear at this time. We will treat her empirically with a short course of antibiotics and plan on see her back in 2 months with scans. She knows to contact us in the interim with any questions or concerns. She will continue to follow with her public service officer for the management of her COPD. Zeeshan Rain MD Yard Clerkcivil engineering specialist Division of Medical Oncology [facility] in [facility] Please note: Retail Salesperson was completed by using [employer] Medical Direct speaking software, variances may therefore occur. documented in this encounter Plan of Treatment Not on file documented as of this encounter Results * (ABNORMAL) Comprehensive metabolic panel (05/01/2019 10:02 AM CDT) Sodium 144 135 - 145 mmol/L [facility] Potassium, pl 3.6 3.3 - 4.9 mmol/L C[facility]ER [facility] Chloride 101 97 - 110 mmol/L [facility] CO2 35(H) 22 - 32 mmol/L [facility] Anion gap 8 2 - 15 mmol/L [facility] BUN 14 8 - 25 mg/dL [facility] Creatinine 0.68 0.60 - 1.10 mg/dL [facility] Glucose 99 70 - 199 mg/dL [facility] Comment: Interpretive Data Fasting glucose [...] 2017. Calcium 9.7 8.5 - 10.3 mg/dL [facility] Bilirubin, total 0.5 0.1 - 1.2 mg/dL [facility] Protein, pl 7.3 6.5 - 8.5 g/dL [facility] Albumin 4.3 3.5 - 5.0 g/dL [facility] Alk phos 89 40 - 130 Units/L [facility] ALT 26 7 - 45 Units/L [facility] AST 21 10 - 45 Units/L [facility] Blood specimen (specimen) 05/01/2019 10:02 AM CDT 05/01/2019 10:23 AM CDT us Zeeshan Rain MD LAB BLOOD ORDERABLES F inal Result ARSENIO BELLA [address] [place], [place] [id number] * CBC with auto differential (05/01/2019 10:02 AM CDT) WBC 4.7 3.8 - 9.8 K/cumm A[facility]ENIO BELLA Comment:Testing performed by : [facility], [address] [place] [phone] Hgb 13.8 12.1 - 15.1 g/dL ARSENIO BELLA Comment:Testing performed by : [facility], [address] [place] [phone] Hct 41.4 36.1 - 44.3 % A[facility]ENIO BELLA Comment:Testing performed by : [facility], [address] [place] [phone] Plt 207 140 - 440 K/cumm ARSENIO BELLA Comment:Testing performed by : [facility], [address] [place], [place] [phone] MPV 7.5 6.8 - 10.4 fL ARSENIO BELLA Comment:Testing performed by : [facility], [address] [place] [address] RBC 4.42 3.90 - 5.00 M/cumm [facility]ERW[facility] Comment:Testing performed by : [place] [phone] MCV 93.7 80.0 - 97.6 fL A[facility]ENIO BELLA Comment:Testing performed by : [facility], [address] [place], [place] [phone] MCH 31.3 26.7 - 33.7 pg A[facility]ENIO BELLA Comment:Testing performed by : [facility], [address] [place], [place] [phone] MCHC 33.4 32.7 - 35.5 g/dL ARSENIO BELLA Comment:Testing performed by : [place] [phone] RDW CV 13.9 11.8 - 14.6 % ARSENIO BELLA Comment:Testing performed by : [facility], [address] [place] [phone] NRBC abs 0.00 0.00 - 0.01 K/cumm ARSENIO BELLA Comment:Testing performed by : [facility], [address] [place] [phone] Blood specimen (specimen) 05/01/2019 10:02 AM CDT 05/01/2019 10:02 AM CDT us Zeeshan Rain MD LAB BLOOD ORDERABLES F inal Result [facility]IO [facility] 1 [place] [address] * MRI Brain W WO Contrast (04/27/2019 [...] may reflect changes made after this encounter. fluticasone-umecl idin-vilanter (TRELEGY ELLIPTA) 100-62.5-25 mcg inhaler Inhale 1 puff daily added in this encounter Orders Appointment Requests Count Last Ordered Date Fi rst Ordered Date ONCBCN CLINIC APPOINTMENT REQUEST 2 019 03/06/2019 ONCBCN LAB APPOINTMENT 1 05/01/2019 documented in this encounter Care Teams Ferry Terminal Supervisor Relationship Specialty Start Date End Date Paula Robles NP PCP - General 05/31/17 Zeeshan Rain MD Medical Oncologist/Geotechnical Field Technician Medical Oncology 02/11/18 08/23/22 Addy Mathur MD PhD [address] [place] [address] Radiation Oncologist Radiation Oncology 03/10/18 documented as of this encounter
--- OUTSIDE RECORDS SUMMARY | 2024-08-06 17:35 | XMS_ITS | Encounter Summary ---
Author Organization [facility] Healthcare Address [address] [place] [address] Care Team Providers Care Container Washer Machine Name Role Phone Travis Paula Eleni COLEMAN Primary Care Provider + Zeeshan Rain MD Unavailable [phone] Addy Mathur MD PhD Unavailable [phone] Reason for Referral * Diagnostic Imaging (Routine) - Closed Specialty Diagnoses / Procedures Referred By Alan bangura Referred To Contact Radiology Diagnoses Malignant neoplasm of upper lobe, right bronchus or lung (HCC) Procedures CT Chest Abdomen Pelvis W Contrast Zeeshan Rain MD Phone: tel: fax: [address] [phone] Referral ID Status Reason Start Date Expiration Date Visits Re quested Visits Authorized [id number] Closed 12/05/2018 06/15/2020 1 1 Reason for Visit * Diagnostic Imaging (Routine) - Closed Specialty Diagnoses / Procedures Referred By Alan bangura Referred To Contact Radiology Diagnoses Malignant neoplasm of upper lobe, right bronchus or lung (HCC) Procedures CT Chest Abdomen Pelvis W Contrast Zeeshan Rain MD Phone: tel: fax: [facility] [phone] [phone] Referral ID Status Reason Start Date Expiration Date Visits Re quested Visits Authorized [id number] Closed 12/05/2018 06/15/2020 1 1 Encounter Details Date Type Department Care Team (Latest Contact Info) Description 03/01/2019 9:46 AM CDT - 03/01/2019 11:59 PM CDT Hospital Encounter [facility] [address] [place] [address] Zeeshan Rain MD [address] [place] [address] Malignant neoplasm of upper lobe, right bronchus or lung (CMS/HCC) Discharge Disposition: Discharge to home or self care Social History Tobacco Use Types Packs/Day Years Used Date Smoking Tobacco: Former Cigarettes Smokeless Tobacco: Never Comments No Sex and Gender Information Value Date Recorded Sex Assigned at Not on file 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 Increased airspace opacity in the right suprahilar region and medial right upper lobe. ??Given the associated finding of progressive volume loss, this is favored to represent atelectasis, possibly in the setting of infection given the new adjacent areas of tree-in-bud nodularity. ??Consider 3 month interval follow-up to see if this finding persists or result. ??If persistent, consider PET/CT for further evaluation at that time. ?? 2. ??No evidence of metastatic disease in the chest, abdomen, or pelvis. Dictated by: Jacky Porter M.D. The radiology attending physician has personally reviewed this study, and had reviewed and/or edited this written report and agrees with it. Electronically signed by: Alvin Walker M.D. Narrative 03/01/2019 12:16 PM CDT EXAMINATION: ??Computed tomography of the chest, abdomen and pelvis with intravenous contrast HISTORY: 68-year-old woman with right lung cancer status post chemoradiation, assess treatment response TECHNIQUE: ??Transaxial computed tomographic images of the chest, abdomen and pelvis were obtained with intravenous contrast according to the standard protocol after the uneventful administration of 125 mL Opti-Ray 350 intravenous contrast. COMPARISON: 12/01/2018, CT chest, abdomen, and pelvis with contrast 06/09/2018, CT chest, abdomen, and pelvis with contrast FINDINGS: ?? Chest: Thyroid enhances homogeneously. ??Heart is normal size without pericardial effusion. ??Aorta is normal in course and caliber with mild atherosclerotic calcifications. ??There is no large central pulmonary embolism. ??There is no supraclavicular, axillary, or mediastinal lymphadenopathy. There is increased airspace opacity in the right suprahilar region and medial right upper lobe. ??Given that there has been increased volume loss in the right upper lobe, spinous favored to be due to increased atelectasis and scarring. ??Additionally, there are some new tree-in-bud nodularities in the superior segment of the right lower lobe and the remaining aerated portions of the right upper lobe. There is a stable 2 mm left upper lobe nodule (table position -194.5). ??There is a stable 2 mm nodule in the left upper lobe (table position -230.5). ??There are no new suspicious nodules. There is no pneumothorax or pleural effusion. Abdomen/Pelvis: Liver is normal. ??Gallbladder has several calcified gallstones but is otherwise normal. ??Pancreas, spleen, and adrenal glands are normal. There is an exophytic indeterminant right renal cyst that is unchanged from the previous exam. ??There are several liver right hypoattenuating too small to characterize kidney lesions. ??There is no hydronephrosis. ??Bladder is normal. ??Uterus is normal and there are no adnexal lesions. Esophagus, stomach, and duodenum are normal. ??Mild diverticulosis without diverticulitis. ??The colon and small bowel are normal in course and caliber without wall thickening or dilation. ??There is no free fluid or free air. The aorta and its branches are normal in course and caliber. ??Mild atherosclerotic calcifications of the abdominal aorta. ??There is no inguinal, pelvic, retroperitoneal, or mesenteric lymphadenopathy. There is a small fat-containing umbilical hernia. There are no suspicious osseous lytic or blastic lesions. ??There is partial fusion of the L4/L5 vertebral bodies. Procedure Note Alvin Walker MD - 03/01/2019 EXAMINATION: Computed tomography of the chest, abdomen and pelvis with intravenous contrast HISTORY: 68-year-old woman with right lung cancer status post chemoradiation, assess treatment response TECHNIQUE: Transaxial computed tomographic images of the chest, abdomen and pelvis were obtained with intravenous contrast according to the standard protocol after the uneventful administration of 125 mL Opti-Ray 350 intravenous contrast. COMPARISON: 12/01/2018, CT chest, abdomen, and pelvis with contrast 06/09/2018, CT chest, abdomen, and pelvis with contrast FINDINGS: Chest: Thyroid enhances homogeneously. Heart is normal size without pericardial effusion. Aorta is normal in course and caliber with mild atherosclerotic calcifications. There is no large central pulmonary embolism. There is no supraclavicular, axillary, or mediastinal lymphadenopathy. There is increased airspace opacity in the right suprahilar region and medial right upper lobe. Given that there has been increased volume loss in the right upper lobe, spinous favored to be due to increased atelectasis and scarring. Additionally, there are some new tree-in-bud nodularities in the superior segment of the right lower lobe and the remaining aerated portions of the right upper lobe. There is a stable 2 mm left upper lobe nodule (table position -194.5). There is a stable 2 mm nodule in the left upper lobe (table position -230.5). There are no new suspicious nodules. There is no pneumothorax or pleural effusion. Abdomen/Pelvis: Liver is normal. Gallbladder has several calcified gallstones but is otherwise normal. Pancreas, spleen, and adrenal glands are normal. There is an exophytic indeterminant right renal cyst that is unchanged from the previous exam. There are several liver right hypoattenuating too small to characterize kidney lesions. There is no hydronephrosis. Bladder is normal. Uterus is normal and there are no adnexal lesions. Esophagus, stomach, and duodenum are normal. Mild diverticulosis without diverticulitis. The colon and small bowel are normal in course and caliber without wall thickening or dilation. There is no free fluid or free air. The aorta and its branches are normal in course and caliber. Mild atherosclerotic calcifications of the abdominal aorta. There is no inguinal, pelvic, retroperitoneal, or mesenteric lymphadenopathy. There is a small fat-containing umbilical hernia. There are no suspicious osseous lytic or blastic lesions. There is partial fusion of the L4/L5 vertebral bodies. IMPRESSION: 1. Increased airspace opacity in the right [...] PET/CT for further evaluation at that time. 2. No evidence of metastatic disease in the chest, abdomen, or pelvis. Dictated by: Jacky Porter M.D. The radiology attending physician has personally reviewed this study, and had reviewed and/or edited this written report and agrees with it. Electronically signed by: Alvin Walker M.D. Zeeshan Rain MD IMG CT PROCEDURES Sada l Result * POCT creatinine (03/01/2019 10:19 AM CDT) Creatinine POC 0.6 0.6 - 1.1 mg/dL [facility] Blood specimen (specimen) 03/01/2019 10:19 AM CDT 03/01/2019 10:19 AM CDT Zeeshan Rain MD LAB POCT ORDERABLES - DEVICE Final Result [facility] Department [place] [address] documented in this encounter Visit Diagnoses Diagnosis Malignant neoplasm of upper lobe, right bronchus or lung (HCC) documented in this encounter Administered Medications Inactive Administered Medications - up to 3 most recent administrations Medication Order MAR Action Action Date Dose Rate Site ioversol (OPTIRAY 350) syringe syringe 125 mL 125 mL, intravenous, Once in imaging, contrast, Starting on Wed03/01/19 at 1058, For 1 dose Given 03/01/2019 10:59 AM CDT 125 mL documented in this encounter Orders Medications Ordered That Adam ht Not Have Been Administered Count Last Ordered Date First Ordered Date ioversol (OPTIRAY 350) syrin ge syringe 125 mL 1 03/01/2019 documented in this encounter Care Teams Container Washer Machine Relationship Specialty Start Date End Date Paula Robles NP PCP - General 05/31/17 Zeeshan Rain MD Medical Oncologist/Engineering And Operations Director Medical Oncology 02/11/18 08/23/22 Addy Mathur MD PhD [address] [place] [id number] Radiation Oncologist Radiation Oncology 03/10/18 documented as of this encounter
--- OUTSIDE RECORDS SUMMARY | 2024-08-06 17:36 | XMS_ITS | Encounter Summary ---
Author Organization [facility] Address [address] [place] [address] Phone Care Team Providers Care Electronic Equipment Installer Name Role Phone Travis, Paula Eleni COLEMAN Primary Care Provider + Zeeshan Rain MD Unavailable [phone] [facility] + [phone] Reason for Referral * Diagnostic Imaging (Routine) - Closed Specialty Diagnoses / Procedures Referred By Alan bangura Referred To Contact Radiology Diagnoses Malignant neoplasm of upper lobe, right bronchus or lung (HCC) Procedures CT Chest Abdomen Pelvis W Contrast Zeeshan Rain MD Phone: tel: fax: [address] [address] Referral ID Status Reason Start Date Expiration Date Visits Re quested Visits Authorized [id number] Closed 09/02/2018 10/17/2018 1 1 T MARKETING COORDINATOR Reason for Visit * Oncology (Routine) - Closed Specialty Diagnoses / Procedures Referred By Alan bangura Referred To Contact Medical Oncology / Oncology Diagnoses Cancer of bronchus of right upper lobe (HCC) lab/rov Procedures [facility] CLINIC APPOINTMENT REQUEST RETURN Zeeshan Rain MD [address] [place] [address] Phone: tel: fax: Zeeshan Rain MD [address] [place] [address] Phone: tel: fax: Referral ID Status Reason Start Date Expiration Date Visits Re quested Visits Authorized [id number] Closed 04/18/2018 08/08/2018 99 99 Encounter Details Date Type Department Care Team (Late st Contact Info) Description 06/13/2018 1:20 PM EVENT MARKETING COORDINATOR Office Visit [facility] Oncology [address] [facility] [address] [place] [address] [place] [address] Zeeshan Rain MD [address] [place] [address] Malignant neoplasm of upper lobe, right bronchus or lung (CMS/HCC) (Primary Dx); Cancer of bronchus of right upper lobe (CMS/HCC) Social History Tobacco Use Types Packs/Day Years Used Date Smoking Tobacco: Former Smokeless Tobacco: Never Comments No Sex and Gender Information Value Date Recorded Sex Assigned at Not on file Legal Sex Female 1:02 AM EVENT MARKETING COORDINATOR Gender Identity Not on file Sexual Orientation Not on file documented as of this encounter Last Filed Vital Signs Vital Sign Reading Time Taken Comments Blood Pressure 138/85 06/13/2018 12:46 PM EVENT MARKETING COORDINATOR Pulse 101 06/13/2018 12:46 PM EVENT MARKETING COORDINATOR Temperature 36.9 ??C (98.4 ??F) 06/13/2018 1 2:46 PM EVENT MARKETING COORDINATOR Respiratory Rate 20 06/13/2018 12:4 6 PM EVENT MARKETING COORDINATOR Oxygen Saturation 95% 06/13/2018 12: 46 PM EVENT MARKETING COORDINATOR Inhaled Oxygen Concentration - - Weight 107.7 kg (237 lb 6.4 oz) 018 12:46 PM EVENT MARKETING COORDINATOR Height - - Body Mass Index 43.42 06/09/2018 2:13 PM CDT documented in this encounter Progress Notes * Mily Reddy DNP - 06/13/2018 1:20 PM CST [facility] DEPARTMENT OF MEDICINE - MEDICAL ONCOLOGY [address] [place] [phone] PHONE: FAX: Medical Oncology Follow-up Note Oncology History DIAGNOSIS: 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 Tumor specimen demonstrates CD56, synaptophysin, cytokeratin, and [...] well without new neurological or systemic symptoms. Her recent scans do not show any evidence concerning for disease progression. Her fatigue seems to have improved to a great extent. She denies any worsening cough, shortness of breath, nausea, vomiting, fever, chills, rash, diarrhea, or pain. She reports that her appetite and energy are both good. PAST MEDICAL HISTORY: 1. COPD/asthma. 2. History of community-acquired pneumonia. 3. Radiographic findings of pulmonary hypertension on CT scan. SOCIAL HISTORY: She is currently retired. 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 She lives in [place], [place]. She quit smoking in 2008 but [...] medical record for complete list of medications. Allergies: No Known Allergies Review of Systems: All other systems negative Vitals: BP: 138/85 Temp: 36.9 ??C (98.4 ??F) Temp src: Oral Pulse: 101 Resp: 20 SpO2: 95 % Weight: 107.7 kg (237 lb 6.4 oz) Physical Exam: General: Alert, [...] CBC: Lab Results Component Value Date/Time WBC 5.4 06/13/2018 12:33 PM HGB 13.9 06/13/2018 12:33 PM HCT 41.4 06/13/2018 12:33 PM MCV 94.1 06/13/2018 12:33 PM NEUTROABS 3.5 06/13/2018 12:33 PM CMP: Lab Results Component Value Date/Time SODIUM 143 06/13/2018 12:30 PM POTASSIUM 3.8 06/13/2018 12:30 PM CO2 31 06/13/2018 12:30 PM BUNSER 13 06/13/2018 12:30 PM GLUCOSE 96 06/13/2018 12:30 PM CREATININE 0.74 06/13/2018 12:30 PM CALCIUM 9.2 06/13/2018 12:30 PM CHLORIDE 103 06/13/2018 12:30 PM ALBUMIN 4.2 06/13/2018 12:30 PM AST 24 06/13/2018 12:30 PM ALT 19 06/13/2018 12:30 PM ALKPHOS 96 06/13/2018 12:30 PM BILITOT 0.4 06/13/2018 12:30 PM PROT 7.2 06/13/2018 12:30 PM ANIONGAP 9 06/13/2018 12:30 PM Radiology: Mri Brain W Wo Contrast: 06/09/2018 No brain metastasis. No acute intracranial abnormal finding. Ct Chest Abdomen Pelvis W Contrast: 06/09/2018 Stable examination with no evidence of local recurrence or metastatic disease. Stable 1.4 cm indeterminate right adrenal lesion. Assessment and Plan: Gaby Morgan is a 68-year-old lady with limited stage small cell lung cancer for which she received concurrent chemoradiation followed by prophylactic cranial irradiation. Her scans today show noevidence of progression; I have reviewed this with . Gaby Morgan and her . We will see her back in 3 months with a restaging CT scan. She will call us in the interim for any questions, concerns, or worsening symptoms. She is agreeable with this plan of care. Mily Reddy DNP, [employer]-[facility] Division of Oncology [facility] [place] T MARKETING COORDINATOR documented in this encounter Plan of Treatment Not on file documented as of this encounter Results * (ABNORMAL) CBC with auto differential (09/12/2018 10:05 AM EVENT MARKETING COORDINATOR) [facility] WBC 10.0(H) 3.8 - 9.8 K/cumm [facility] Comment:Testing performed by : [address] [phone] Hgb 14.5 12.1 - 15.1 g/dL [facility] Comment:Testing performed by : [address] [phone] Hct 43.2 36.1 - 44.3 % [facility] Comment:Testing performed by : [address] [phone] Plt 210 140 - 440 K/cumm [facility] Comment:Testing performed by : [address] [address] MPV 7.7 6.8 - 10.4 fL [facility] Comment:Testing performed by : [address] [phone] RBC 4.62 3.90 - 5.00 M/cumm [facility] Comment:Testing performed by : [address] [address] MCV 93.5 80.0 - 97.6 fL [facility] Comment:Testing performed by : [address] [address] MCH 31.3 26.7 - 33.7 pg [facility] Comment:Testing performed by : [address] [address] MCHC 33.5 32.7 - 35.5 g/dL [facility] Comment:Testing performed by : [facility], [address] [facility] [phone] RDW CV 14.1 11.8 - 14.6 % [facility] Comment:Testing performed by : [facility], [address] [place] [phone] NRBC abs 0.00 0.00 - 0.01 K/cumm [facility] Comment:Testing performed by : [facility], [address] [place] [phone] Blood specimen (specimen) 09/12/2018 10:05 AM EVENT MARKETING COORDINATOR 09/12/2018 10:06 AM EVENT MARKETING COORDINATOR Narrative [facility] - 09/12/2018 10:10 AM EVENT MARKETING COORDINATOR Zeeshan Rain MD LAB BLOOD ORDERABLES F inal Result [facility] Department [place] [address] * Comprehensive metabolic panel (09/12/2018 10:03 AM EVENT MARKETING COORDINATOR) Sodium 142 135 - 145 mmol/L [facility] Potassium, pl 3.9 3.3 - 4.9 mmol/L [facility] Chloride 100 97 - 110 mmol/L [facility] CO2 32 22 - 32 mmol/L [facility] Anion gap 10 2 - 15 mmol/L [facility] BUN 13 8 - 25 mg/dL [facility] Creatinine 0.68 0.60 - 1.10 mg/dL [facility] Glucose 100 70 - 199 mg/dL [facility] Comment: Interpretive Data Fasting glucose [...] interpretive data was last revised 2017. Calcium 9.6 8.5 - 10.3 mg/dL [facility] Bilirubin, total 0.5 0.1 - 1.2 mg/dL [facility] Protein, pl 7.8 6.5 - 8.5 g/dL [facility] Albumin 4.1 3.5 - 5.0 g/dL [facility] Alk phos 97 40 - 130 Units/L [facility] ALT 22 7 - 45 Units/L [facility] AST 24 10 - 45 Units/L [facility] Blood specimen (specimen) 09/12/2018 10:03 AM EVENT MARKETING COORDINATOR 09/12/2018 10:36 AM EVENT MARKETING COORDINATOR Narrative [facility] - 09/12/2018 11:13 AM EVENT MARKETING COORDINATOR Zeeshan Rain MD LAB BLOOD ORDERABLES F inal Result [facility] Department [place] [address] * CT Chest Abdomen Pelvis W Contrast (09/07/2018 2:16 PM EVENT MARKETING COORDINATOR) Anatomical Region Laterality Modality Body N/A Computed Tomogra phy 09/07/2018 3:11 PM EVENT MARKETING COORDINATOR Impressions 09/07/2018 3:25 PM EVENT MARKETING COORDINATOR 1. ??Stable postradiation changes within right upper lobe with no evidence of metastatic disease in chest, abdomen or pelvis. Dictated by: Shelton Lambert M.D. Electronically signed by: Maynor Albrecht M.D. Narrative 09/07/2018 3:25 PM EVENT MARKETING COORDINATOR EXAMINATION: ??Computed tomography of the chest, abdomen and pelvis with intravenous contrast HISTORY: Limited stage small cell carcinoma of the lung initially diagnosed in April 2017 status post chemoradiation and whole brain radiation. ??Evaluate treatment response. TECHNIQUE: ??Transaxial computed tomographic images of the chest, abdomen and pelvis ??were obtained with intravenous contrast according to the standard protocol after the uneventful administration of 125 mL Opti-Ray 350 intravenous contrast. COMPARISON: Comparison is made to 08/19/2017 FINDINGS: ?? The central airways are widely patent. ??Redemonstrated are stable posttreatment changes in the right lung. ??There is radiation fibrosis in the right upper lobe. ??Atelectasis is noted in the right middle lobe, unchanged. ??Emphysematous changes in the lung are unchanged. Mild atelectasis is noted in the lung bases. ??There is no pneumothorax, pulmonary edema, pneumonic consolidation pleural effusion. ??No new or enlarging suspicious pulmonary nodules are seen. The visualized thyroid gland is normal. ??Main pulmonary artery is enlarged which could be seen with pulmonary hypertension. ??Thoracic aorta and branch vessels are normal in course and caliber with atherosclerotic disease. ??Heart size is normal with trace pericardial effusion. ??There is no supraclavicular, axillary, mediastinal or hilar lymphadenopathy. No suspicious liver lesions are seen. ??There is no intrahepatic or extra hepatic biliary ductal dilatation. ??Layering gallstones are noted in the gallbladder. ??Hepatic and portal veins are patent. Spleen, pancreas and adrenal glands are normal. ??Kidneys enhance symmetrically bilaterally with stable 1.4 cm lesion that has been previously characterized as minimally complex cyst. ??There is no hydronephrosis or obstructing renal or ureteral calculi. ??Urinary bladder is decompressed. ??Uterus and adnexa are normal. There is fat containing umbilical hernia. ??Scattered colonic diverticulosis is seen without evidence of acute diverticulitis. Appendix is normal. ??There is no small or large bowel obstruction. Stomach is decompressed. ??There is no abdominal or pelvic lymphadenopathy. ??Abdominal aorta and branching vessels are normal in course and caliber without sclerotic disease. Bone windows demonstrate no aggressive lytic or blastic lesions. Degenerative changes are noted in the spine. Procedure Note Maynor Albrecht MD - 09/07/2018 EXAMINATION: Computed tomography of the chest, abdomen and pelvis with intravenous contrast HISTORY: Limited stage small cell carcinoma of the lung initially diagnosed in April 2017 status post chemoradiation and whole brain radiation. Evaluate treatment response. TECHNIQUE: Transaxial computed tomographic images of the chest, abdomen and pelvis were obtained with intravenous contrast according to the standard protocol after the uneventful administration of 125 mL Opti-Ray 350 intravenous contrast. COMPARISON: Comparison is made to 08/19/2017 FINDINGS: The central airways are widely patent. Redemonstrated are stable posttreatment changes in the right lung. There is radiation fibrosis in the right upper lobe. Atelectasis is noted in the right middle lobe, unchanged. Emphysematous changes in the lung are unchanged. Mild atelectasis is noted in the lung bases. There is no pneumothorax, pulmonary edema, pneumonic consolidation pleural effusion. No new or enlarging suspicious pulmonary nodules are seen. The visualized thyroid gland is normal. Main pulmonary artery is enlarged which could be seen with pulmonary hypertension. Thoracic aorta and branch vessels are normal in course and caliber with atherosclerotic disease. Heart size is normal with trace pericardial effusion. There is no supraclavicular, axillary, mediastinal or hilar lymphadenopathy. No suspicious liver lesions are seen. There is no intrahepatic or extra hepatic biliary ductal dilatation. Layering gallstones are noted in the gallbladder. Hepatic and portal veins are patent. Spleen, pancreas and adrenal glands are normal. Kidneys enhance symmetrically bilaterally with stable 1.4 cm lesion that has been previously characterized as minimally complex cyst. There is no hydronephrosis or obstructing renal or ureteral calculi. Urinary bladder is decompressed. Uterus and adnexa are normal. There is fat containing umbilical hernia. Scattered colonic diverticulosis is seen without evidence of acute diverticulitis. Appendix is normal. There is no small or large bowel obstruction. Stomach is decompressed. There is no abdominal or pelvic lymphadenopathy. Abdominal aorta and branching vessels are normal in course and caliber without sclerotic disease. Bone windows demonstrate no aggressive lytic or blastic lesions. Degenerative changes are noted in the spine. IMPRESSION: 1. Stable postradiation changes within right upper lobe with no evidence of metastatic disease in chest, abdomen or pelvis. Dictated by: Shelton Lambert M.D. Electronically signed by: Maynor Albrecht M.D. Zeeshan Rain MD IMG CT PROCEDURES Sada l Result documented in this encounter Visit Diagnoses Diagnosis Malignant neoplasm of upper lobe, right bronchus or lung (HCC)- Primary Cancer of bronchus of right upper lobe (HCC) Malignant neoplasm of upper lobe, right bronchus or lung (HCC) Malignant neoplasm of upper lobe, right bronchus or lung (HCC) documented in this encounter Historical Medications * This list may reflect changes made after this encounter. Medication Sig Dispense Quantity Refills Last Filled Start D ate End Date POTASSIUM CHLORIDE ER 20 mEq CR tablet 2 05/16/2018 09/26/19 19 added in this encounter Orders Immunization/Injection Count Last Ordered Date First Ordered Date FLU VACCINE MDCK QUAD PF 4Y+ IM - FLUCELVAX 1 06/13/2018 Appointment Requests Count Last Ordered Date Fi rst Ordered Date [facility] CLINIC APPOINTMENT REQUEST 2 019 06/13/2018 [facility] LAB APPOINTMENT 1 09/12/2018 documented in this encounter Care Teams Electronic Equipment Installer Relationship Specialty Start Date End Date Paula Robles NP PCP - General 05/31/17 Zeeshan Rain MD Medical Oncologist/Road Engineer Freight Medical Oncology 02/11/18 08/23/22 Addy Mathur MD PhD [address] [place] [address] Radiation Oncologist Radiation Oncology 03/10/18 documented as of this encounter
--- OUTSIDE RECORDS SUMMARY | 2024-08-06 17:36 | XMS_ITS | Encounter Summary ---
Author Organization [facility] Healthcare Address [address] [place] [address] Care Team Providers Care Landscaper Name Role Phone Paula Robles ALUMINUM CAN COLLECTOR Primary Care Provider + Zeeshan Rain MD Unavailable [phone] Addy reyna MD PhD Unavailable [phone] Encounter Details Date Type Department Care Team (Latest Contact Info) Description 10/21/2017 7:25 AM CDT - 06/13/2018 11:59 PM INSURANCE CLAIMS SPECIALIST Hospital Encounter [facility] [phone] Zeeshan Rain MD [address] [facility] [address] [place] [address] Discharge Disposition: Discharge to home or self care Social History Tobacco Use Types Packs/Day Years Used Date Smoking Tobacco: Former Smokeless Tobacco: Never Comments No Sex and Gender Information Value Date Recorded Sex Assigned at Not on file Legal Sex Female 1:02 AM INSURANCE CLAIMS SPECIALIST Gender Identity Not on file Sexual [...] H FOR 10 DAYS 0 01/11/2018 2 COMBIVENT RESPIMAT 20-100 mcg/actuation inhalerIndications: Chronic Obstructive Pulmonary Disease with Bronchospasms INL 1 PUFF PO QID 5 01/11/2018 3 fluticasone (FLONASE) 50 mcg/actuation nasal spray daily. 3 LORazepam (ATIVAN) 0.5 mg tablet 1 tab po q 6-8 hours prn nausea. Try this medication third 05/24/2017 3 methylPREDNISolone (MEDROL DOSEPACK) 4 mg Dosepack TK UTD 0 01/18/2018 9 ondansetron (ZOFRAN) 8 mg tablet TAKE 1 TABLET EVERY 8 HOURS PRN nausea,try this medication FIRST 05/24/2017 3 potassium chloride ER (KLOR-CON,K-DUR) 20 mEq CR tablet Take 1 tablet (20 mEq total) by mouth 2 (two) times a day. 60 tablet 2 02/14/2018 8 POTASSIUM CHLORIDE ER 20 mEq CR tablet 2 05/16/201809/26 9 predniSONE (DELTASONE) 20 mg tablet TK [...] Associated Diagnosis Comments COMPREHENSIVE METABOLIC PANEL STAT 12/20/2017 12:59 PM CDT CBC WITH AUTO DIFFERENTIAL Routine Gen Lab 12/20/2017 12:55 PM CDT CBC WITH AUTO DIFFERENTIAL Routine Gen Lab 10/25/2017 12:53 PM CDT COMPREHENSIVE METABOLIC PANEL STAT 10/25/2017 12:48 PM CDT documented in this encounter Results * (ABNORMAL) Comprehensive metabolic panel (12/20/2017 12:59 PM CDT) Sodium 143 135 - 145 mmol/L [facility] Potassium, pl 3.1(L) 3.3 - 4.9 mmol/L [facility] CO2 33(H) 22 - 32 mmol/L [facility] BUN 10 8 - 25 mg/dL [facility] Glucose 116 70 - 199 mg/dL [facility] Comment: Interpretive Data Fasting glucose >/= 126 [...] Current interpretive data was last revised 2017. Creatinine 0.76 0.60 - 1.10 mg/dL [facility] Calcium 9.2 8.5 - 10.3 mg/dL [facility] Chloride 101 97 - 110 mmol/L [facility] Albumin 3.9 3.5 - 5.0 g/dL [facility] AST 15 10 - 45 Units/L [facility] ALT 15 7 - 45 Units/L [facility] Alk phos 81 40 - 130 Units/L [facility] Bilirubin, total 0.7 0.1 - 1.2 mg/dL [facility] Protein, pl 7.1 6.5 - 8.5 g/dL [facility] Anion gap 9 2 - 15 mmol/L [facility] Blood specimen (specimen) 12/20/2017 12:59 PM CDT 12/20/2017 1:14 PM CDT Narrative [facility] - 12/20/2017 1:40 PM CDT us Zeeshan Rain MD LAB BLOOD ORDERABLES F inal Result [facility] Department [place] [address] * (ABNORMAL) CBC with auto differential (12/20/2017 12:55 PM CDT) WBC 9.2 3.8 - 9.8 K/cumm [facility] RBC 4.04 3.90 - 5.00 M/cumm [facility] Hgb 12.9 12.1 - 15.1 g/dL [facility] Hct 38.3 36.1 - 44.3 % [facility] Mean Cellular Volume - CAM 94.8 80.0 - 97.6 fL [facility] Mean Cellular Hemoglobin - CAM 32.0 26.7 - 33.7 pg [facility] Mean Cellular Hemoglobin Concentration - CAM 33.8 32.7 - 35.5 g/dL [facility] Rdw 15.5(H) 11.8 - 14.6 % [facility] Plt 215 140 - 440 K/cumm [facility] Mean Platelet Volume - CAM 7.2 6.8 - 10.4 fL [facility] Neutrophil pct 78.3(H) 38.7 - 74.5 % [facility] Lymphocyte pct 14.5(L) 20.0 - 54.3 % [facility] Monos 5.1 4.3 - 13.5 % [facility] Eosinophil pct 1.4 0.0 - 6.0 % [facility] Basophil pct 0.7 0.0 - 3.0 % [facility] Neutrophil abs 7.2(H) 1.8 - 6.6 K/cumm [facility] Lymphocyte abs 1.3 1.2 - 3.3 K/cumm [facility] Monocyte abs 0.5 0.2 - 1.2 K/cumm [facility] Eosinophils, abs 0.1 0.0 - 0.5 K/cumm [facility] Basophil abs 0.1 0.0 - 0.2 K/cumm [facility] NRBC 0.0 0.0 - 0.2 % [facility] NRBC abs 0.00 0.00 - 0.01 K/cumm [facility] Blood specimen (specimen) 12/20/2017 12:55 PM CDT 12/20/2017 12:59 PM CDT Narrative [facility] - 12/20/2017 1:02 PM CDT us Zeeshan Rain MD LAB BLOOD ORDERABLES F inal Result [facility] Department [place] [address] * (ABNORMAL) CBC with auto differential (10/25/2017 12:53 PM CDT) Pathologist [facility] WBC 5.6 3.8 - 9.8 K/cumm [facility] RBC 3.83(L) 3.90 - 5.00 M/cumm [facility] Hgb 12.8 12.1 - 15.1 g/dL [facility] Hct 38.5 36.1 - 44.3 % [facility] Mean Cellular Volume - CAM 100.5(H) 80.0 - 97.6 fL [facility] Mean Cellular Hemoglobin - CAM 33.5 26.7 - 33.7 pg [facility] Mean Cellular Hemoglobin Concentration - CAM 33.3 32.7 - 35.5 g/dL [facility] Rdw 13.9 11.8 - 14.6 % [facility] Plt 211 140 - 440 K/cumm [facility] Mean Platelet Volume - CAM 7.3 6.8 - 10.4 fL [facility] Neutrophil pct 63.7 38.7 - 74.5 % [facility] Lymphocyte pct 23.5 20.0 - 54.3 % [facility] Monos 9.3 4.3 - 13.5 % [facility] Eosinophil pct 2.3 0.0 - 6.0 % [facility] Basophil pct 1.2 0.0 - 3.0 % [facility] Neutrophil abs 3.5 1.8 - 6.6 K/cumm [facility] Lymphocyte abs 1.3 1.2 - 3.3 K/cumm [facility] Monocyte abs 0.5 0.2 - 1.2 K/cumm [facility] Eosinophils, abs 0.1 0.0 - 0.5 K/cumm [facility] Basophil abs 0.1 0.0 - 0.2 K/cumm [facility] NRBC 0.1 0.0 - 0.2 % [facility] NRBC abs 0.00 0.00 - 0.01 K/cumm [facility] Blood specimen (specimen) 10/25/2017 12:53 PM CDT 10/25/2017 12:53 PM CDT Narrative [facility] - 10/25/2017 12:59 PM CDT Zeeshan Rain MD LAB BLOOD ORDERABLES F inal Result [facility] Department [place] [address] * (ABNORMAL) Comprehensive metabolic panel (10/25/2017 12:48 PM CDT) [facility] Signature Sodium 141 135 - 145 mmol/L [facility] Potassium, pl 3.9 3.3 - 4.9 mmol/L [facility] CO2 37(H) 22 - 32 mmol/L [facility] BUN 13 8 - 25 mg/dL [facility] Glucose 92 70 - 199 mg/dL [facility] Comment: Interpretive Data Fasting glucose >/= 126 [...] Current interpretive data was last revised 2017. Creatinine 0.72 0.60 - 1.10 mg/dL [facility] Calcium 9.3 8.5 - 10.3 mg/dL [facility] Chloride 98 97 - 110 mmol/L [facility] Albumin 4.2 3.5 - 5.0 g/dL [facility] AST 22 10 - 45 Units/L [facility] ALT 17 7 - 45 Units/L [facility] Alk phos 93 40 - 130 Units/L [facility] Bilirubin, total 0.4 0.1 - 1.2 mg/dL [facility] Protein, pl 7.3 6.5 - 8.5 g/dL [facility] Anion gap 6 2 - 15 mmol/L [facility] Blood specimen (specimen) 10/25/2017 12:48 PM CDT 10/25/2017 1:02 PM CDT Narrative [facility] - 10/25/2017 1:38 PM CDT Zeeshan Rain MD LAB BLOOD ORDERABLES F inal Result [facility] Department [place] [address] documented in this encounter Visit Diagnoses Not on filedocumented in this encounter Care Teams Landscaper Relationship Specialty Start Date End Date Paula Robles NP PCP - General 05/31/17 Zeeshan Rain MD Medical Oncologist/Research Geologist Medical Oncology 02/11/18 08/23/22 Addy Mathur MD PhD [address] [place] [address] Radiation Oncologist Radiation Oncology 03/10/18 documented as of this encounter
--- OUTSIDE RECORDS SUMMARY | 2024-08-06 17:36 | XMS_ITS | Encounter Summary ---
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) Procedures MRI Brain W WO Contrast Zeeshan Rain MD Phone: tel: fax: [address] [address] Referral ID Status Reason Start Date Expiration Date Visits Re quested Visits Authorized [id number] Closed 04/18/2018 10/28/2019 1 1 Reason for Visit * Diagnostic Imaging (Routine) - Closed Specialty Diagnoses / Procedures Referred By Alan bangura Referred To Contact Radiology Diagnoses Cancer of bronchus of right upper lobe (HCC) Procedures MRI Brain W WO Contrast Zeeshan Rain MD Phone: tel: fax: [address] [place] [address] Referral ID Status Reason Start Date Expiration Date Visits Re quested Visits Authorized [id number] Closed 04/18/2018 10/28/2019 1 1 Encounter Details Date Type Department Care Team (Latest Contact Info) Description 06/09/2018 12:41 PM CDT - 06/09/2018 11:59 PM CDT Hospital Encounter [facility] [address] [place] [address] Zeeshan Rain MD [address] [place] [address] Cancer of bronchus of right upper lobe (CMS/HCC) Discharge Disposition: Discharge to home or self care Social History Tobacco Use Types Packs/Day Years Used Date Smoking Tobacco: Former Smokeless Tobacco: Never Comments No Sex and Gender Information Value Date Recorded Sex Assigned at Not on file 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 ??No acute intracranial abnormal finding. Dictated by: Humble Wood M.D. Electronically signed by: Will Martin 06/09/2018 5:15 PM CDT EXAMINATION: Magnetic resonance imaging (MRI) of the brain and brainstem without and with contrast HISTORY: Lung cancer screening TECHNIQUE: Multiplanar multi-weighted MRI of the brain and brainstem was performed without and with intravenous contrast using the general brain protocol. Contrast information: 20 mL Dotarem COMPARISON: 12/15/2017 FINDINGS: Scalp and calvarium appear normal. Superior sagittal sinus demonstrates normal venous flow. Corpus callosum is normal in shape and signal intensity. Posterior fossa is unremarkable. Pituitary and sella are normal. Brainstem and craniocervical junction are unremarkable. Diffusion weighted images reveal no hyperintensity to suggest acute cerebral infarction. ??Chronic left caudate lacunar infarct again noted. ??Susceptibility weighted sequences reveal no evidence of acute or chronic hemorrhage. ??There is moderate subcortical and periventricular white matter disease. ??Ventricles are normal in size and position without evidence of hydrocephalus. No area of abnormal contrast enhancement. Paranasal sinuses are normal. Visualized portions of the mastoids are unremarkable. Orbits appear normal. Normal flow voids demonstrated in the carotid arteries and basilar artery. Procedure Note Will Ascencio MD PhD - 06/09/2018 EXAMINATION: Magnetic resonance imaging (MRI) of the brain and brainstem without and with contrast HISTORY: Lung cancer screening TECHNIQUE: Multiplanar multi-weighted MRI of the brain and brainstem was performed without and with intravenous contrast using the general brain protocol. Contrast information: 20 mL Dotarem COMPARISON: 12/15/2017 FINDINGS: Scalp and calvarium appear normal. Superior sagittal sinus demonstrates normal venous flow. Corpus callosum is normal in shape and signal intensity. Posterior fossa is unremarkable. Pituitary and sella are normal. Brainstem and craniocervical junction are unremarkable. Diffusion weighted images reveal no hyperintensity to suggest acute cerebral infarction. Chronic left caudate lacunar infarct again noted. Susceptibility weighted sequences reveal no evidence of acute or chronic hemorrhage. There is moderate subcortical and periventricular white matter disease. Ventricles are normal in size and position without evidence of hydrocephalus. No area of abnormal contrast enhancement. Paranasal sinuses are normal. Visualized portions of the mastoids are unremarkable. Orbits appear normal. Normal flow voids demonstrated in the carotid arteries and basilar artery. IMPRESSION: No brain metastasis. No acute intracranial abnormal finding. Dictated by: Humble Wood M.D. Electronically signed by: Will Ascencio Zeeshan Rain MD IMG MRI PROCEDURES Fin al Result documented in this encounter Visit Diagnoses Diagnosis Cancer of bronchus of right upper lobe (HCC) documented in this encounter Administered Medications Inactive Administered Medications - up to 3 most recent administrations Medication Order MAR Action Action Date Dose Rate Site gadoterate meglumine (DOTAREM) 0.5 mmol/mL injection 20 mL 20 mL, intravenous, Once in imaging, contrast, Starting on La 06/09/18 at 1510, For 1 dose Given 06/09/2018 3:11 PM CDT 20 mL Left Hand documented in this encounter Orders Medications Ordered That Adam ht Not Have Been Administered Count Last Ordered Date First Ordered Date gadoterate meglumine (DOTARE M) 0.5 mmol/mL injection 20 mL 1 06/09/2018 documented in this encounter Care Teams Special Education Math Teacher Relationship Specialty Start Date End Date Paula Robles NP PCP - General 05/31/17 Zeeshan Rain MD Medical Oncologist/Oiler And Greaser Medical Oncology 02/11/18 08/23/22 Addy Mathur MD PhD [address] [place] [address] Radiation Oncologist Radiation Oncology 03/10/18 documented as of this encounter
--- OUTSIDE RECORDS SUMMARY | 2024-08-06 17:36 | XMS_ITS | Encounter Summary ---
Author Organization [facility] Address [address] [place] [address] Phone Care Team Providers Care Manager Of Drilling Name Role Phone Paula Robles NP Primary Care Provider + Zeeshan Rain MD Unavailable [phone] [facility] Unavailable [phone] Reason for Visit * Oncology (Routine) - Closed Specialty Diagnoses / Procedures Referred By Alan bangura Referred To Contact Lab Diagnoses Cancer of bronchus of right upper lobe (HCC) #C,,,lab/rov Procedures ONCBCN LAB APPOINTMENT ARM DRAW Zeeshan Rain MD [address] [place] [address] Phone: tel: fax: [facility] Oncology [address] [facility] 7th [place] [address] [place] [address] Phone: tel: Referral ID Status Reason Start Date Expiration Date Visits Re quested Visits Authorized [id number] Closed 04/18/2018 08/08/2018 99 99 Encounter Details Date Type Department Care Team (Late st Contact Info) Description 04/18/2018 10:30 AM CDT Lab [facility] Oncology [address] [facility] 7th [address] [place] [address] Cancer of bronchus of right upper lobe (CMS/HCC) Social History Tobacco Use Types Packs/Day Years Used Date Smoking Tobacco: Former Smokeless Tobacco: Never Comments No Sex and Gender Information Value Date Recorded Sex Assigned at Not on file 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 Gender Identity Not on file Sexual Orientation Not on file documented as of this encounter Plan of Treatment Not on file documented as of this encounter Procedures Procedure Name Priority Date/Time Associated Diagnosis Comments DIFFERENTIAL AUTO Routine 04/18/2018 10: 22 AM CDT Cancer of bronchus of right upper lobe (CMS/HCC) CBC WITH AUTO DIFFERENTIAL Routine 04/18/2018 10:22 AM CDT Cancer of bronchus of right upper lobe (CMS/HCC) COMPREHENSIVE METABOLIC PANEL STAT 04/18/2018 10:21 AM CDT Cancer of bronchus of right upper lobe (CMS/HCC) documented in this encounter Results * Differential, auto (04/18/2018 10:22 AM CDT) Neutrophil abs 3.0 1.8 - 6.6 K/cumm [facility] Comment:Testing performed by : [facility], [address] [place] [phone] Lymphocyte abs 1.3 1.2 - 3.3 K/cumm [facility] Comment:Testing performed by : [facility], [address] [place] [phone] Monocyte abs 0.3 0.2 - 1.2 K/cumm [facility] Comment:Testing performed by : [facility], [address] [place] [phone] Eosinophil abs 0.1 0.0 - 0.5 K/cumm [facility] Comment:Testing performed by : [facility], [address] [place] [phone] Basophil abs 0.0 0.0 - 0.2 K/cumm [facility] Comment:Testing performed by : [facility], [address] [place] [phone] Neutrophil pct 61.7 % [facility] Comment: Interpretive Data Percent cell count reference ranges are not reported, since discordance with absolute values may lead to misinterpretation of CBC data. Current Interpretive Data was last revised on 2017. Testing performed by: [facility], [address] [place] [phone] Lymphocyte pct 27.7 % [facility] Comment: Interpretive Data Percent cell count reference ranges are not reported, since discordance with absolute values may lead to misinterpretation of CBC data. Current Interpretive Data was last revised on 2017. Testing performed by: [facility], [address] [place] [phone] Monocyte pct 7.0 % [facility] Comment:Testing performed by : [facility], [address] [place] [phone] Eosinophil pct 2.6 % [facility] Comment:Testing performed by : [facility], [address] [place] [phone] Basophil pct 1.0 % [facility] Comment:Testing performed by : [facility], [address] [place] [phone] Blood specimen (specimen) 04/18/2018 10:22 AM CDT 04/18/2018 10:23 AM CDT Narrative [facility] - 04/18/2018 10:29 AM CDT us Zeeshan Rain MD LAB BLOOD ORDERABLES F inal Result [facility] [place] [address] * CBC with auto differential (04/18/2018 10:22 AM CDT) WBC 4.8 3.8 - 9.8 K/cumm [facility] Comment:Testing performed by : [address] [phone] Hgb 13.8 12.1 - 15.1 g/dL [facility] Comment:Testing performed by : [facility], [address] [place] [phone] Hct 41.3 36.1 - 44.3 % [facility] Comment:Testing performed by : [facility], [address] [place], [place] [phone] Plt 214 140 - 440 K/cumm [facility] Comment:Testing performed by : [facility], [address] [place], [place] [phone] MPV 7.6 6.8 - 10.4 fL [facility] Comment:Testing performed by : [facility], [address] [place] [address] RBC 4.40 3.90 - 5.00 M/cumm [facility] Comment:Testing performed by : [place] [address] MCV 93.8 80.0 - 97.6 fL [facility] Comment:Testing performed by : [facility], [address] [place], [place] [phone] MCH 31.4 26.7 - 33.7 pg [facility] Comment:Testing performed by : [facility], [address] [place], [place] [phone] MCHC 33.5 32.7 - 35.5 g/dL [facility] Comment:Testing performed by : [address] RDW CV 13.8 11.8 - 14.6 % [facility] Comment:Testing performed by : [address] NRBC abs 0.01 0.00 - 0.01 K/cumm [facility] Comment:Testing performed by : [facility], [address] [place], [place] [phone] Blood specimen (specimen) 04/18/2018 10:22 AM CDT 04/18/2018 10:23 AM CDT Narrative [facility] - 04/18/2018 10:29 AM CDT us Zeeshan Rain MD LAB BLOOD ORDERABLES F inal Result [facility] [place] [address] * Comprehensive metabolic panel (04/18/2018 10:21 AM CDT) Sodium 143 135 - 145 mmol/L [facility] Potassium, pl 3.9 3.3 - 4.9 mmol/L [facility] Chloride 103 97 - 110 mmol/L [facility] CO2 32 22 - 32 mmol/L [facility] Anion gap 8 2 - 15 mmol/L [facility] BUN 12 8 - 25 mg/dL [facility] Creatinine 0.70 0.60 - 1.10 mg/dL [facility] Glucose 108 70 - 199 mg/dL [facility] Comment: Interpretive Data Fasting glucose >/= [...] interpretive data was last revised 2017. Calcium 9.5 8.5 - 10.3 mg/dL [facility] Bilirubin, total 0.4 0.1 - 1.2 mg/dL [facility] Protein, pl 7.4 6.5 - 8.5 g/dL [facility] Albumin 3.9 3.5 - 5.0 g/dL [facility] Alk phos 93 40 - 130 Units/L [facility] ALT 17 7 - 45 Units/L [facility] AST 22 10 - 45 Units/L [facility] Blood specimen (specimen) 04/18/2018 10:21 AM CDT 04/18/2018 10:46 AM CDT Narrative [facility] - 04/18/2018 11:21 AM CDT us Zeeshan Rain MD LAB BLOOD ORDERABLES F inal Result [facility] [place] [address] documented in this encounter Visit Diagnoses Diagnosis Cancer of bronchus of right upper lobe (HCC) documented in this encounter Orders Appointment Requests Count Last Ordered Date Fi rst Ordered Date ONCBCN LAB APPOINTMENT 1 04/18/2018 documented in this encounter Care Teams Manager Of Drilling Relationship Specialty Start Date End Date Paula Robles NP PCP - General 05/31/17 Zeeshan Rain MD Medical Oncologist/Faceter Medical Oncology 02/11/18 08/23/22 Addy Mathur MD PhD [address] [place] [address] Radiation Oncologist Radiation Oncology 03/10/18 documented as of this encounter
--- OUTSIDE RECORDS SUMMARY | 2024-08-06 17:36 | XMS_ITS | Encounter Summary ---
Author Organization [facility] Address [address] [place] [address] Phone Care Team Providers Care Ice Cream Dispenser Name Role Phone Travis, Paula Eleni COLEMAN Primary Care Provider + Zeeshan Rain MD Unavailable [phone] [facility] Unavailable + [phone] Reason for Referral * Diagnostic Imaging (Routine) - Closed Specialty Diagnoses / Procedures Referred By Alan bangura Referred To Contact Diagnoses Cancer of bronchus of right upper lobe (HCC) Procedures US Kidney Complete Zeeshan Rain MD Phone: tel: fax: [facility] (All Locations) Referral ID Status Reason Start Date Expiration Date Visits Re quested Visits Authorized [id number] Closed 04/18/2018 10/28/2019 1 1 * Diagnostic Imaging (Routine) - Closed Specialty Diagnoses / Procedures Referred By Alan bangura Referred To Contact Radiology Diagnoses Cancer of bronchus of right upper lobe (HCC) Procedures CT Chest Abdomen Pelvis W Contrast Zeeshan Rain MD Phone: tel: fax: [address] [place] [phone] Referral ID Status Reason Start Date Expiration Date Visits Re quested Visits Authorized [id number] Closed 04/18/2018 10/28/2019 1 1 * Diagnostic Imaging (Routine) - Closed Specialty Diagnoses / Procedures Referred By Alan bangura Referred To Contact Radiology Diagnoses Cancer of bronchus of right upper lobe (HCC) Procedures MRI Brain W WO Contrast Zeeshan Rain MD Phone: tel: fax: [address] [phone] Referral ID Status Reason Start Date Expiration Date Visits Re quested Visits Authorized [id number] Closed 04/18/2018 10/28/2019 1 1 Reason for Visit * Oncology (Routine) - Closed Specialty Diagnoses / Procedures Referred By Alan bangura Referred To Contact Medical Oncology / Oncology Diagnoses Cancer of bronchus of right upper lobe (HCC) lab/rov Procedures [facility] CLINIC APPOINTMENT REQUEST RETURN Zeeshan Rain MD [address] [place] [address] Phone: tel: fax: Zeeshan Rain MD [address] [place] [address] Phone: tel: fax: Referral ID Status Reason Start Date Expiration Date Visits Re quested Visits Authorized [id number] Closed 04/18/2018 08/08/2018 99 99 Encounter Details Date Type Department Care Team (Late st Contact Info) Description 04/18/2018 11:20 AM CDT Office Visit [facility] Oncology [address] [facility] 7th [place] [address] [place] [address] Zeeshan Rain MD [address] [place] [address] [address] [place] [address] Cancer of bronchus of right upper lobe (CMS/HCC) Social History Tobacco Use Types Packs/Day Years Used Date Smoking Tobacco: Former Smokeless Tobacco: Never Comments No Sex and Gender Information Value Date Recorded Sex Assigned at Not on file Legal Sex Female 1:02 AM FINANCIAL SYSTEMS DIRECTOR Gender Identity Not on file Sexual Orientation Not on file documented as of this encounter Last Filed Vital Signs Vital Sign Reading Time Taken Comments Blood Pressure 130/78 04/18/2018 10:43 AM CDT Pulse 107 04/18/2018 10:43 AM CDT Temperature 36.9 ??C (98.4 ??F) 04/18/2018 1 0:43 AM CDT Respiratory Rate 20 04/18/2018 10:4 3 AM CDT Oxygen Saturation 95% 04/18/2018 10: 43 AM CDT Inhaled Oxygen Concentration - - Weight 104.6 kg (230 lb 11.2 oz) 2017 10:43 AM CDT Height - - Body Mass Index 43.59 07/16/2017 12:42 PM FINANCIAL SYSTEMS DIRECTOR documented in this encounter Progress Notes * Zeeshan Rain MD - 04/18/2018 11:20 AM CDT [facility]PART[facility] MEDICINE - MEDICAL ONCOLOGY [address] [place] [phone] PHONE: FAX: Medical Oncology Follow-up Note Oncology History DIAGNOSIS: 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, [id number]). Tumor specimen demonstrates CD56, synaptophysin, cytokeratin, and TTF positivity. TREATMENT: 1. Concurrent chemoradiation with carboplatin and etoposide with radiation from 06/21/2017 to 08/03/2017, and chemotherapy from 05/28/2017 to 08/05/2017. 2. Prophylactic whole-brain radiation in 10 fractions from 09/13/2017 to 09/24/2017. Interval History: Gaby Morgan presents for a follow-up visit today. She continues to do well without new neurological or systemic symptoms. Her recent scans do not show any evidence concerning for disease progression. She denies any dyspnea. Her fatigue seems to have improved to a great extent. Past Medical History: 1. COPD/asthma. 2. History of community-acquired pneumonia. 3. Radiographic findings of pulmonary hypertension on CT scan. Medications: Reviewed current medication list. Please refer to medical record for complete list of medications. Allergies: No Known Allergies Review of Systems: All other systems negative Vitals: BP: 130/78 Temp: 36.9 ??C (98.4 ??F) Temp src: Oral Pulse: 107 Resp: 20 SpO2: 95 % Weight: 104.6 kg (230 lb 11.2 oz) Physical Exam: General: Alert, awake and [...] CBC: Lab Results Component Value Date/Time WBC 4.8 04/18/2018 10:22 AM HGB 13.8 04/18/2018 10:22 AM HCT 41.3 04/18/2018 10:22 AM MCV 93.8 04/18/2018 10:22 AM NEUTROABS 3.0 04/18/2018 10:22 AM CMP: Lab Results Component Value Date/Time SODIUM 143 04/18/2018 10:21 AM POTASSIUM 3.9 04/18/2018 10:21 AM CO2 32 04/18/2018 10:21 AM BUNSER 12 04/18/2018 10:21 AM GLUCOSE 108 04/18/2018 10:21 AM CREATININE 0.70 04/18/2018 10:21 AM CALCIUM 9.5 04/18/2018 10:21 AM CHLORIDE 103 04/18/2018 10:21 AM ALBUMIN 3.9 04/18/2018 10:21 AM AST 22 04/18/2018 10:21 AM ALT 17 04/18/2018 10:21 AM ALKPHOS 93 04/18/2018 10:21 AM BILITOT 0.4 04/18/2018 10:21 AM PROT 7.4 04/18/2018 10:21 AM ANIONGAP 8 04/18/2018 10:21 AM Radiology: IMPRESSION (CT 04/14/18) 1. Evolving right lung postradiation treatment changes. No evidence of metastatic disease within the chest. 2. Indeterminate enhancing 1.4 cm right anterior interpolar pole renal lesion. Recommend correlation with renal ultrasound for further characterization. 3. Cholelithiasis without evidence of acute cholecystitis. Assessment and Plan: Gaby Morgan is a 67-year-old lady with limited stage small cell lung cancer for which she received concurrent chemoradiation followed by prophylactic cranial irradiation. Her scans today show noevidence of progression. We will however plan on obtaining an ultrasound of the right kidney, to further evaluate the 1.4 cm inter pole renal lesion that was noted on CT imaging. We will plan on seeing her back in 8 weeks with repeat imaging. We will also plan on repeating an MRI of the brain on her next visit. She knows to contact us with any questions, concerns or symptoms in the interim. Zeeshan Rain MD Sales Training Coordinatortruck engine technician Section of Medical Oncology [facility] documented in this encounter Plan of Treatment Not on file documented as of this encounter Results * CBC with auto differential (06/13/2018 12:33 PM FINANCIAL SYSTEMS DIRECTOR) WBC 5.4 3.8 - 9.8 K/cumm ARSENIO BELLA Comment:Testing performed by : [facility], [address] [place] [phone] Hgb 13.9 12.1 - 15.1 g/dL ARSENIO BELLA Comment:Testing performed by : [facility], [address] [place] [phone] Hct 41.4 36.1 - 44.3 % ARSENIO BELLA Comment:Testing performed by : [facility], [address] [place] [phone] Plt 220 140 - 440 K/cumm ARSENIO BELLA Comment:Testing performed by : [facility], [address] [place] [phone] MPV 7.2 6.8 - 10.4 fL ARSENIO BELLA Comment:Testing performed by : [facility], [address] [place], [place] [phone] RBC 4.40 3.90 - 5.00 M/cumm ARSENIO BELLA Comment:Testing performed by : [facility], [address] [place], [place] [phone] MCV 94.1 80.0 - 97.6 fL ARSENIO BELLA Comment:Testing performed by : [facility], [address] [place], [place] [phone] MCH 31.6 26.7 - 33.7 pg ARSENIO BELLA Comment:Testing performed by : [facility], [address] [place], [place] [phone] MCHC 33.6 32.7 - 35.5 g/dL ARSENIO BELLA Comment:Testing performed by : [facility], [address] [place], [place] [phone] RDW CV 13.7 11.8 - 14.6 % ARSENIO BELLA Comment:Testing performed by : [facility], [address] [place] [phone] NRBC abs 0.00 0.00 - 0.01 K/cumm ARSENIO BELLA Comment:Testing performed by : [facility], [address] [place], [place] [phone] Blood specimen (specimen) 06/13/2018 12:33 PM FINANCIAL SYSTEMS DIRECTOR 06/13/2018 12:35 PM FINANCIAL SYSTEMS DIRECTOR Narrative ARSENIO SMITH - 06/13/2018 12:38 PM FINANCIAL SYSTEMS DIRECTOR us Zeeshan Rain MD LAB BLOOD ORDERABLES F inal Result ARSENIO BELLA One [facility] [place] [address] * Comprehensive metabolic panel (06/13/2018 12:30 PM FINANCIAL SYSTEMS DIRECTOR) Sodium 143 135 - 145 mmol/L ARSENIO SMITH Potassium, pl 3.8 3.3 - 4.9 mmol/L [facility] Chloride 103 97 - 110 mmol/L [facility] CO2 31 22 - 32 mmol/L [facility] Anion gap 9 2 - 15 mmol/L [facility] BUN 13 8 - 25 mg/dL [facility] Creatinine 0.74 0.60 - 1.10 mg/dL [facility] Glucose 96 70 - 199 mg/dL [facility] Comment: Interpretive Data Fasting glucose >/= [...] 2017. Calcium 9.2 8.5 - 10.3 mg/dL [facility] Bilirubin, total 0.4 0.1 - 1.2 mg/dL [facility] Protein, pl 7.2 6.5 - 8.5 g/dL [facility] Albumin 4.2 3.5 - 5.0 g/dL [facility] Alk phos 96 40 - 130 Units/L [facility] ALT 19 7 - 45 Units/L [facility] AST 24 10 - 45 Units/L [facility] Blood specimen (specimen) 06/13/2018 12:30 PM FINANCIAL SYSTEMS DIRECTOR 06/13/2018 12:46 PM FINANCIAL SYSTEMS DIRECTOR Narrative [facility] - 06/13/2018 1:15 PM FINANCIAL SYSTEMS DIRECTOR us Zeeshan Rain MD LAB BLOOD ORDERABLES F inal Result [facility] [place] [address] * MRI Brain W WO Contrast (06/09/2018 [...] * CT Chest Abdomen Pelvis W Contrast (06/09/2018 12:21 PM CDT) Anatomical Region Laterality Modality Body N/A Computed Tomogra phy 06/09/2018 1:42 PM CDT Impressions 06/09/2018 1:42 PM CDT Stable examination with no evidence of local recurrence or metastatic disease. Stable 1.4 cm indeterminate right adrenal lesion. Renal lesion Electronically signed by: Sohail Mariscal M.D. Narrative 06/09/2018 1:42 PM CDT EXAMINATION: ??Computed tomography of the chest, abdomen and pelvis with intravenous contrast HISTORY: Right upper lobe small cell carcinoma, T3 N2 MX status post chemoradiation, and chemotherapy, evaluate for metastases. TECHNIQUE: ??Transaxial computed tomographic images of the abdomen and pelvis ??were obtained with intravenous contrast according to the standard protocol after the uneventful administration of 100 mL Opti-Ray 350 intravenous contrast. COMPARISON: CT chest abdomen pelvis performed on 04/14/2018 FINDINGS: ?? Chest: Stable posttreatment changes in the right lung. No evidence of recurrent or metastatic disease in the lungs. Unchanged right middle lobe right upper lobe scarring with volume loss, lingula and bilateral lower lobe atelectasis. Thyroid gland is unremarkable. There are no enlarged mediastinal, hilar, or axillary lymph nodes. No pleural or significant effusions. Abdomen/Pelvis: Liver: Normal Gallbladder and biliary system: Cholelithiasis. No biliary dilatation. Spleen: Normal; splenule is noted. Adrenal glands: Normal Kidneys: Stable appearance with no hydronephrosis. Stable 1.4 cm lesion in the right kidney with CT density of 36HU which is not consistent with a simple cyst. Pancreas: Normal Stomach and bowel: Sigmoid diverticulosis. Vasculature: Mild atherosclerotic disease Lymph nodes: No enlarged lymph nodes Peritoneum/retroperitoneum: No free fluid or soft tissue masses Abdominal wall: Fat-containing infraumbilical hernia. Pelvic viscera: Normal Bladder: Normal Skeletal system: No aggressive bone lesions Procedure Note Sohail Mariscal MD - 06/09/2018 EXAMINATION: Computed tomography of the chest, abdomen and pelvis with intravenous contrast HISTORY: Right upper lobe small cell carcinoma, T3 N2 MX status post chemoradiation, and chemotherapy, evaluate for metastases. TECHNIQUE: Transaxial computed tomographic images of the abdomen and pelvis were obtained with intravenous contrast according to the standard protocol after the uneventful administration of 100 mL Opti-Ray 350 intravenous contrast. COMPARISON: CT chest abdomen pelvis performed on 04/14/2018 FINDINGS: Chest: Stable posttreatment changes in the right lung. No evidence of recurrent or metastatic disease in the lungs. Unchanged right middle lobe right upper lobe scarring with volume loss, lingula and bilateral lower lobe atelectasis. Thyroid gland is unremarkable. There are no enlarged mediastinal, hilar, or axillary lymph nodes. No pleural or significant effusions. Abdomen/Pelvis: Liver: Normal Gallbladder and biliary system: Cholelithiasis. No biliary dilatation. Spleen: Normal; splenule is noted. Adrenal glands: Normal Kidneys: Stable appearance with no hydronephrosis. Stable 1.4 cm lesion in the right kidney with CT density of 36HU which is not consistent with a simple cyst. Pancreas: Normal Stomach and bowel: Sigmoid diverticulosis. Vasculature: Mild atherosclerotic disease Lymph nodes: No enlarged lymph nodes Peritoneum/retroperitoneum: No free fluid or soft tissue masses Abdominal wall: Fat-containing infraumbilical hernia. Pelvic viscera: Normal Bladder: Normal Skeletal system: No aggressive bone lesions IMPRESSION: Stable examination with no evidence of local recurrence or metastatic disease. Stable 1.4 cm indeterminate right adrenal lesion. Renal lesion Electronically signed by: Sohail Mariscal M.D. Zeeshan Rain MD IMG CT PROCEDURES Sada l Result * US Kidney Complete (04/22/2018 3:10 PM CDT) Anatomical Region Laterality Modality Kidney N/A Ultrasound 04/22/2018 3:17 PM CDT Impressions 04/22/2018 3:17 PM CDT 1. ??The lesion of concern correlates to a minimally complex right renal cyst without suspicious features Electronically signed by: Tomas Harding M.D. Narrative 04/22/2018 3:17 PM CDT EXAMINATION: COMPLETE RENAL SONOGRAM HISTORY: ??Right renal lesion seen on recent CT examination 04/14/2018 COMPARISON: ??CT 04/14/2018 FINDINGS: ?? Kidneys: The echogenicity of both kidneys is normal. The kidneys are normal in size. ??The right kidney measures 10.7 cm in length, and the left, 11.2 cm in length. There is no hydronephrosis in either kidney. There are no renal calculi visualized. ??In the region of concern, there is a minimally complex 1 x 1.1 x 1.3 cm cyst with a single thin septation. ??No suspicious features including soft tissue nodularity or vascularity is identified. Bladder: The urinary bladder is normal Procedure Note Tomas Harding MD - 04/22/2018 EXAMINATION: COMPLETE RENAL SONOGRAM HISTORY: Right renal lesion seen on recent CT examination 04/14/2018 COMPARISON: CT 04/14/2018 FINDINGS: Kidneys: The echogenicity of both kidneys is normal. The kidneys are normal in size. The right kidney measures 10.7 cm in length, and the left, 11.2 cm in length. There is no hydronephrosis in either kidney. There are no renal calculi visualized. In the region of concern, there is a minimally complex 1 x 1.1 x 1.3 cm cyst with a single thin septation. No suspicious features including soft tissue nodularity or vascularity is identified. Bladder: The urinary bladder is normal IMPRESSION: 1. The lesion of concern correlates to a minimally complex right renal cyst without suspicious features Electronically signed by: Tomas Harding M.D. Zeeshan Rain MD IMG US PROCEDURES Sada l Result documented in this encounter Visit Diagnoses Diagnosis Cancer of bronchus of right upper lobe (HCC) Cancer of bronchus of right upper lobe (HCC) Cancer of bronchus of right upper lobe (HCC) Cancer of bronchus of right upper lobe (HCC) Cancer of bronchus of right upper lobe (HCC) documented in this encounter Orders Appointment Requests Count Last Ordered Date Fi rst Ordered Date [facility] CLINIC APPOINTMENT REQUEST 2 [phone] 04/18/2018 [facility] LAB APPOINTMENT 1 06/13/2018 documented in this encounter Care Teams Ice Cream Dispenser Relationship Specialty Start Date End Date Paula Robles NP PCP - General 05/31/17 Zeeshan Rain MD Medical Oncologist/Sap Crm Developer Medical Oncology 02/11/18 08/23/22 Addy Mathur MD PhD [address] [place] [address] Radiation Oncologist Radiation Oncology 03/10/18 documented as of this encounter
--- OUTSIDE RECORDS SUMMARY | 2024-08-06 17:36 | XMS_ITS | Encounter Summary ---
Author Organization [facility] Address [address] [place] [address] Phone Care Team Providers Care Laminator Printed Circuit Boards Name Role Phone Travis Paula Knowles NP Primary Care Provider + Zeeshan Rain MD Unavailable [phone] Addy Mathur MD PhD Unavailable + [phone] Encounter Details Date Type Department Care Team (Late st Contact Info) Description 12/05/2018 10:00 AM CDT Lab [facility] Oncology [address] [facility] 7th [place] [address] [place] [address] Malignant neoplasm of upper lobe, right bronchus or lung (CMS/HCC) Social History Tobacco Use Types Packs/Day Years Used Date Smoking Tobacco: Former Cigarettes Smokeless Tobacco: Never Comments No Sex and Gender Information Value Date Recorded Sex Assigned at Not on file Legal 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 Gender Identity Not on file Sexual Orientation Not on file documented as of this encounter Plan of Treatment Not on file documented as of this encounter Procedures Procedure Name Priority Date/Time Associated Diagnosis Comments DIFFERENTIAL AUTO Routine 12/05/2018 9:5 1 AM CDT Malignant neoplasm of upper lobe, right bronchus or lung (CMS/HCC) CBC WITH AUTO DIFFERENTIAL Routine 12/05/2018 9:51 AM CDT Malignant neoplasm of upper lobe, right bronchus or lung (CMS/HCC) COMPREHENSIVE METABOLIC PANEL STAT 12/05/2018 9:51 AM CDT Malignant neoplasm of upper lobe, right bronchus or lung (CMS/HCC) documented in this encounter Results * Differential, auto (12/05/2018 9:51 AM CDT) Neutrophil abs 2.8 1.8 - 6.6 K/cumm [facility] Comment:Testing performed by : [facility], [address] [place] [phone] Lymphocyte abs 1.7 1.2 - 3.3 K/cumm [facility] Comment:Testing performed by : [facility], [address] [place] [phone] Monocyte abs 0.4 0.2 - 1.2 K/cumm [facility] Comment:Testing performed by : [facility], [address] [place] [phone] Eosinophil abs 0.1 0.0 - 0.5 K/cumm [facility] Comment:Testing performed by : [facility], [address] [place] [phone] Basophil abs 0.1 0.0 - 0.2 K/cumm [facility] Comment:Testing performed by : [facility], [address] [place] [phone] Neutrophil pct 55.8 % [facility] Comment: Interpretive Data Percent cell count reference ranges are not reported, since discordance with absolute values may lead to misinterpretation of CBC data. Current Interpretive Data was last revised on 2017. Testing performed by: [facility], [address] [place] [phone] Lymphocyte pct 32.6 % [facility] Comment: Interpretive Data Percent cell count reference ranges are not reported, since discordance with absolute values may lead to misinterpretation of CBC data. Current Interpretive Data was last revised on 2017. Testing performed by: [facility], [address] [place] [phone] Monocyte pct 7.5 % [facility] Comment:Testing performed by : [facility], [address] [place] [phone] Eosinophil pct 2.9 % [facility] Comment:Testing performed by : [facility], [address] [place] [phone] Basophil pct 1.2 % [facility] Comment:Testing performed by : [facility], [address] [place] [phone] Blood specimen (specimen) 12/05/2018 9:51 AM CDT 12/05/2018 9:53 AM CDT Narrative [facility] - 12/05/2018 9:58 AM CDT us Zeeshan Rain MD LAB BLOOD ORDERABLES F inal Result [facility] Department [place] [address] * CBC with auto differential (12/05/2018 9:51 AM CDT) WBC 5.1 3.8 - 9.8 K/cumm [facility] Comment:Testing performed by : [facility], [address] [place] [phone] Hgb 13.8 12.1 - 15.1 g/dL [facility] Comment:Testing performed by : [facility], [address] [place] [phone] Hct 40.5 36.1 - 44.3 % [facility] Comment:Testing performed by : [facility], [address] [place] [phone] Plt 204 140 - 440 K/cumm [facility] Comment:Testing performed by : [facility], [address] [place] [phone] MPV 7.5 6.8 - 10.4 fL [facility] Comment:Testing performed by : [facility], [address] [place] [phone] RBC 4.41 3.90 - 5.00 M/cumm [facility] Comment:Testing performed by : [facility], [address] [place] [phone] MCV 91.9 80.0 - 97.6 fL [facility] Comment:Testing performed by : [facility], [address] [place] [phone] MCH 31.2 26.7 - 33.7 pg [facility] Comment:Testing performed by : [facility], [address] [place] [phone] MCHC 33.9 32.7 - 35.5 g/dL [facility] Comment:Testing performed by : [facility], [address] [place] [phone] RDW CV 14.3 11.8 - 14.6 % [facility] Comment:Testing performed by : [facility], [address] [place] [phone] NRBC abs 0.00 0.00 - 0.01 K/cumm [facility] Comment:Testing performed by : [facility], [address] [place] [phone] Blood specimen (specimen) 12/05/2018 9:51 AM CDT 12/05/2018 9:53 AM CDT Narrative [facility] - 12/05/2018 9:58 AM CDT Zeeshan Rain MD LAB BLOOD ORDERABLES F inal Result [facility] Department [place] [address] * Comprehensive metabolic panel (12/05/2018 9:51 AM CDT) Sodium 144 135 - 145 mmol/L [facility] Potassium, pl 3.4 3.3 - 4.9 mmol/L [facility] Chloride 101 97 - 110 mmol/L [facility] CO2 31 22 - 32 mmol/L [facility] Anion gap 12 2 - 15 mmol/L [facility] BUN 12 8 - 25 mg/dL [facility] Creatinine 0.65 0.60 - 1.10 mg/dL [facility] Glucose 89 70 - 199 mg/dL [facility] Comment: Interpretive Data Fasting glucose >/= 126 [...] interpretive data was last revised 2017. Calcium 9.1 8.5 - 10.3 mg/dL [facility] Bilirubin, total 0.5 0.1 - 1.2 mg/dL [facility] Protein, pl 7.2 6.5 - 8.5 g/dL [facility] Albumin 4.1 3.5 - 5.0 g/dL [facility] Alk phos 95 40 - 130 Units/L [facility] ALT 21 7 - 45 Units/L [facility] AST 21 10 - 45 Units/L [facility] Blood specimen (specimen) 12/05/2018 9:51 AM CDT 12/05/2018 10:43 AM CDT Narrative [facility] - 12/05/2018 11:41 AM CDT Zeeshan Rain MD LAB BLOOD ORDERABLES F inal Result [facility] Department [place] [address] documented in this encounter Visit Diagnoses Diagnosis Malignant neoplasm of upper lobe, right bronchus or lung (HCC) documented in this encounter Orders Appointment Requests Count Last Ordered Date Fi rst Ordered Date ONCBCN LAB APPOINTMENT 1 12/05/2018 documented in this encounter Care Teams Laminator Printed Circuit Boards Relationship Specialty Start Date End Date Paula Robles NP PCP - General 05/31/17 Zeeshan Rain MD Medical Oncologist/Bander Medical Oncology 02/11/18 08/23/22 Addy Mathur MD PhD [address] [place] [address] Radiation Oncologist Radiation Oncology 03/10/18 documented as of this encounter
--- OUTSIDE RECORDS SUMMARY | 2024-08-06 17:36 | XMS_ITS | Encounter Summary ---
Author Organization [facility] Healthcare Address [address] [place] [address] Care Team Providers Care Brick Washer Name Role Phone Paula Robles SIZE ROLLER OPERATOR Primary Care Provider + Zeeshan Rain MD Unavailable [phone] Addy reyna MD PhD Unavailable + [phone] Encounter Details Date Type Department Care Team (Late st Contact Info) Description 06/02/2018 Orders Only Radiology [address] [place] [address] Bhaskar Sebastian MD [facility] [address] [address] Social History Tobacco Use Types Packs/Day Years Used Date Smoking Tobacco: Former Smokeless Tobacco: Never Comments No Sex and Gender Information Value Date Recorded Sex Assigned at Not on file Legal Sex Female 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
--- OUTSIDE RECORDS SUMMARY | 2024-08-06 17:36 | XMS_ITS | Encounter Summary ---
Author Organization [facility] Healthcare Address [address] [place] [address] Care Team Providers Care Product Picker Name Role Phone Paula Robles CLOTH EXAMINER MACHINE Primary Care Provider + Zeeshan Rain MD Unavailable [phone] Addy reyna MD PhD Unavailable + [phone] Reason for Referral * Diagnostic Imaging (Routine) - Closed Specialty Diagnoses / Procedures Referred By Alan bangura Referred To Contact Radiology Diagnoses Malignant neoplasm of upper lobe, right bronchus or lung (HCC) Procedures MRI Brain W WO Contrast Zeeshan Rain MD Phone: tel: fax: [address] [address] Referral ID Status Reason Start Date Expiration Date Visits Re quested Visits Authorized [id number] Closed 09/12/2018 03/23/2020 1 1 Reason for Visit * Diagnostic Imaging (Routine) - Closed Specialty Diagnoses / Procedures Referred By Alan bangura Referred To Contact Radiology Diagnoses Malignant neoplasm of upper lobe, right bronchus or lung (HCC) Procedures MRI Brain W WO Contrast Zeeshan Rain MD Phone: tel: fax: [address] [place] [address] Referral ID Status Reason Start Date Expiration Date Visits Re quested Visits Authorized [id number] Closed 09/12/2018 03/23/2020 1 1 Encounter Details Date Type Department Care Team (Latest Contact Info) Description 12/01/2018 10:54 AM CDT - 12/01/2018 11:59 PM CDT Hospital Encounter [facility] Rad[facility] [place] [address] Zeeshan Rain MD [address] [place] [address] Malignant neoplasm of upper lobe, right bronchus [...] MEQ) BY MOUTH TWICE DAILY 60 tablet 09/26/2018 9 predniSONE (DELTASONE) 20 mg tablet TK [...] CONTRAST Schedule Routine, Read Routine (OP Routine) 12/01/2018 1:30 PM CDT Malignant neoplasm of upper lobe, right bronchus or lung (CMS/HCC) documented in this encounter Results * MRI Brain W WO Contrast (12/01/2018 1:30 PM CDT) Anatomical Region Laterality Modality Head and Neck N/A Magnetic Resonan ce 12/01/2018 2:08 PM CDT Impressions 12/01/2018 2:36 PM CDT No brain metastasis. ??No acute intracranial abnormal finding. Dictated by: Janet Tinsley M.D. The radiology attending physician has personally reviewed this study, and had reviewed and/or edited this written report and agrees with it. Electronically signed by: Bettina Pagan M.D. Narrative 12/01/2018 2:36 PM CDT EXAMINATION: Magnetic resonance imaging (MRI) of the brain and brainstem without and with contrast HISTORY: Lung cancer TECHNIQUE: Multiplanar multi-weighted MRI of the brain and brainstem was performed without and with intravenous contrast using the general brain protocol. Contrast information: 20 mL Dotarem COMPARISON: 06/09/2018 FINDINGS: Scalp and calvarium appear normal. Superior [...] of acute or chronic hemorrhage. ??There is subcortical and periventricular white matter disease, nonspecific but unchanged from 06/09/2018. Ventricles are normal in size and position without evidence of hydrocephalus. No area of abnormal contrast enhancement. Paranasal sinuses are normal. Visualized portions of the mastoids are unremarkable. Orbits appear normal. Normal flow voids demonstrated in the carotid arteries and basilar artery. Procedure Note Bettina Pagan MD - 12/01/2018 EXAMINATION: Magnetic resonance imaging (MRI) of the brain and brainstem without and with contrast HISTORY: Lung cancer TECHNIQUE: Multiplanar multi-weighted MRI of the brain and brainstem was performed without and with intravenous contrast using the general brain protocol. Contrast information: 20 mL Dotarem COMPARISON: 06/09/2018 FINDINGS: Scalp and calvarium appear normal. Superior [...] of acute or chronic hemorrhage. There is subcortical and periventricular white matter disease, nonspecific but unchanged from 06/09/2018. Ventricles are normal in size and position without evidence of hydrocephalus. No area of abnormal contrast enhancement. Paranasal sinuses are normal. Visualized portions of the mastoids are unremarkable. Orbits appear normal. Normal flow voids demonstrated in the carotid arteries and basilar artery. IMPRESSION: No brain metastasis. No acute intracranial abnormal finding. Dictated by: Janet Tinsley M.D. The radiology attending physician has personally reviewed this study, and had reviewed and/or edited this written report and agrees with it. Electronically signed by: Bettina Pagan M.D. Zeeshan Rain MD IMG MRI PROCEDURES Fin al Result documented in this encounter Visit Diagnoses Diagnosis Malignant neoplasm of upper lobe, right bronchus or lung (HCC) documented in this encounter Administered Medications Inactive Administered Medications - up to 3 most recent administrations Medication Order MAR Action Action Date Dose Rate Site gadoterate meglumine (DOTAREM) 0.5 mmol/mL injection 21.4 mL 21.4 mL (0.1 mmol/kg ? 107 kg), intravenous, Once in imaging, contrast, Starting on La 12/01/18 at 1322, For 1 dose, Imaging Protocol Orders Given 12/01/2018 1:22 PM CDT 20 mL documented in this encounter Orders Medications Ordered That Adam ht Not Have Been Administered Count Last Ordered Date First Ordered Date gadoterate meglumine (DOTARE M) 0.5 mmol/mL injection 21.4 mL 1 12/01/2018 documented in this encounter Care Teams Product Picker Relationship Specialty Start Date End Date Paula Robles NP PCP - General 05/31/17 Zeeshan Rain MD Medical Oncologist/Filling Station Attendant Medical Oncology 02/11/18 08/23/22 Addy Mathur MD PhD [address] [place] [address] Radiation Oncologist Radiation Oncology 03/10/18 documented as of this encounter
--- OUTSIDE RECORDS SUMMARY | 2024-08-06 17:36 | XMS_ITS | Encounter Summary ---
Author Organization [facility] Healthcare Address [address] [place] [address] Care Team Providers Care Generalist Name Role Phone Paula Robles TUNNEL HEADING INSPECTOR Primary Care Provider + Zeeshan Rain MD Unavailable [phone] Addy reyna MD PhD Unavailable [phone] Reason for Referral * Diagnostic Imaging (Routine) - Closed Specialty Diagnoses / Procedures Referred By Contac t Referred To Contact Diagnoses Cancer of bronchus of right upper lobe (HCC) Procedures US Kidney Complete Zeeshan Rain MD Phone: tel: fax: [facility] (All Locations) Referral ID Status Reason Start Date Expiration Date Visits Re quested Visits Authorized [id number] Closed 04/18/2018 10/28/2019 1 1 Reason for Visit * Diagnostic Imaging (Routine) - Closed Specialty Diagnoses / Procedures Referred By Contac t Referred To Contact Diagnoses Cancer of bronchus of right upper lobe (HCC) Procedures US Kidney Zeeshan Ferro MD Phone: tel: fax: [facility] (All Locations) Referral ID Status Reason Start Date Expiration Date Visits Re quested Visits Authorized [id number] Closed 04/18/2018 10/28/2019 1 1 Encounter Details Date Type Department Care Team (Latest Contact Info) Description 04/22/2018 2:18 PM CDT - 04/22/2018 11:59 PM CDT Hospital Encounter [facility] Radiology [facility] [address] [place] [address] Zeeshan Rain MD [address] [place] [address] Cancer of bronchus of right upper lobe (CMS/HCC) Discharge Disposition: Discharge to home or self care Social History Tobacco Use Types Packs/Day Years Used Date Smoking Tobacco: Former Smokeless Tobacco: Never Comments No Sex and Gender Information Value Date Recorded Sex Assigned at Not on file Legal Sex Female 1:02 AM MACHINE STOPPAGE FREQUENCY CHECKER Gender Identity Not on file Sexual Orientation [...] a day. 60 tablet 2 02/14/2018 8 predniSONE (DELTASONE) 20 mg tablet TK 1 [...] Procedure Name Priority Date/Time Associated Diagnosis Comments US KIDNEY COMPLETE Schedule Routine, Read Routine (OP Routine) 04/22/2018 3:10 PM CDT Cancer of bronchus of right upper lobe (CMS/HCC) documented in this encounter Results * US Kidney Complete (04/22/2018 3:10 PM [...] by: Tomas Harding M.D. Zeeshan Rain MD [facility] US PROCEDURES Sada l Result documented in this encounter Visit Diagnoses Diagnosis Cancer of bronchus of right upper lobe (HCC) documented in this encounter Care Teams Generalist Relationship Specialty Start Date End Date Paula Robles NP PCP - General 05/31/17 Zeeshan Rain MD Medical Oncologist/Administrative Appeals Tribunal Member Medical Oncology 02/11/18 08/23/22 Addy Mathur MD PhD [address] [place] [address] Radiation Oncologist Radiation Oncology 03/10/18 documented as of this encounter
--- OUTSIDE RECORDS SUMMARY | 2024-08-06 17:36 | XMS_ITS | Encounter Summary ---
Author Organization [facility] Healthcare Address [address] [place] [address] Care Team Providers Care Edge Inker Name Role Phone Paula Robles Eleni SPOOL SANDER Primary Care Provider + Zeeshan Rain MD Unavailable [phone] Addy reyna MD PhD Unavailable + [phone] Reason for Referral * Diagnostic Imaging (Routine) - Closed Specialty Diagnoses / Procedures Referred By Alan bangura Referred To Contact Radiology Diagnoses Malignant neoplasm of upper lobe, right bronchus or lung (HCC) Procedures CT Chest Abdomen Pelvis W Contrast Zeeshan Rain MD Phone: tel: fax: [address] [address] Referral ID Status Reason Start Date Expiration Date Visits Re quested Visits Authorized [id number] Closed 09/02/2018 10/17/2018 1 1 ZINE REPAIRER Reason for Visit * Diagnostic Imaging (Routine) - Closed Specialty Diagnoses / Procedures Referred By Alan bangura Referred To Contact Radiology Diagnoses Malignant neoplasm of upper lobe, right bronchus or lung (HCC) Procedures CT Chest Abdomen Pelvis W Contrast Zeeshan Rain MD Phone: tel: fax: [address] [facility] [place] [address] Referral ID Status Reason Start Date Expiration Date Visits Re quested Visits Authorized [id number] Closed 09/02/2018 10/17/2018 1 1 Encounter Details Date Type Department Care Team (Latest Contact Info) Description 09/07/2018 12:53 PM MAGAZINE REPAIRER - 09/07/2018 11:59 PM MAGAZINE REPAIRER Hospital Encounter [facility] Radiology [facility] [address] [place] [address] Zeeshan Rain MD [address] [place] [address] Malignant neoplasm of upper lobe, right bronchus or lung (CMS/HCC) Discharge Disposition: Discharge to home or self care Social History Tobacco Use Types Packs/Day Years Used Date Smoking Tobacco: Former Smokeless Tobacco: Never Comments No Sex and Gender Information Value Date Recorded Sex Assigned at Not on file Legal Sex Female 1:02 AM MAGAZINE REPAIRER Gender Identity Not on file Sexual [...] 20 mEq CR tablet 2 05/16/201809/26 9 POTASSIUM CHLORIDE ER 20 mEq CR tablet TAKE 1 TABLET(20 MEQ) BY MOUTH TWICE DAILY 60 tablet 07/27/2018 9 predniSONE (DELTASONE) 20 mg tablet TK [...] CONTRAST Schedule Routine, Read Routine (OP Routine) 09/07/2018 2:16 PM MAGAZINE REPAIRER Malignant neoplasm of upper lobe, right bronchus or lung (CMS/HCC) documented in this encounter Results * CT Chest Abdomen Pelvis W Contrast (09/07/2018 2:16 PM MAGAZINE REPAIRER) Anatomical Region Laterality Modality Body N/A Computed Tomogra phy 09/07/2018 3:11 PM MAGAZINE REPAIRER Impressions 09/07/2018 3:25 PM MAGAZINE REPAIRER 1. ??Stable postradiation changes within right upper lobe with no evidence of metastatic disease in chest, abdomen or pelvis. Dictated by: Shelton Lambert M.D. Electronically signed by: Maynor Albrecht M.D. Narrative 09/07/2018 3:25 PM MAGAZINE REPAIRER EXAMINATION: ??Computed tomography of the chest, abdomen [...] intravenous, Once in imaging, contrast, Starting on Wed09/07/18 at 1416, For 1 dose Given 09/07/2018 2:17 PM MAGAZINE REPAIRER 125 mL documented in this encounter Orders Medications Ordered That Adam ht Not Have Been Administered Count Last Ordered Date First Ordered Date ioversol (OPTIRAY 350) syrin ge syringe 125 mL 1 09/07/2018 documented in this encounter Care Teams Edge Inker Relationship Specialty Start Date End Date Paula Robles NP PCP - General 05/31/17 Zeeshan Rain MD Medical Oncologist/Director Of Loss Prevention Medical Oncology 02/11/18 08/23/22 Adyd Mathur MD PhD [address] [place] [address] Radiation Oncologist Radiation Oncology 03/10/18 documented as of this encounter
--- OUTSIDE RECORDS SUMMARY | 2024-08-06 17:36 | XMS_ITS | Encounter Summary ---
Author Organization [facility] Address [address] [place] [address] Phone Care Team Providers Care Forestry Worker Name Role Phone Paula Robles NP Primary Care Provider + Zeeshan Rain MD Unavailable [phone] [facility] Unavailable [phone] Reason for Visit * Oncology (Routine) - Closed Specialty Diagnoses / Procedures Referred By Alan t Referred To Contact Lab Diagnoses Malignant neoplasm of upper lobe, right bronchus or lung (HCC) lab,rov Procedures ONCBCN LAB APPOINTMENT ARM DRAW Zeeshan Rain MD [address] [place] [address] Phone: tel: fax: [facility] [address] [facility] Advanced Medicine 7th [place] [address] [place] [address] Phone: tel: Referral ID Status Reason Start Date Expiration Date Visits Re quested Visits Authorized [id number] Closed 09/12/2018 08/08/2019 99 [phone] Encounter Details Date Type Department Care Team (Late st Contact Info) Description 09/12/2018 10:00 AM BRANCH MECHANIC Lab [facility] [address] [facility] Advanced Medicine 7th [place] [address] [place] [address] Malignant neoplasm of upper lobe, right bronchus or lung (CMS/HCC) Social History Tobacco Use Types Packs/Day Years Used Date Smoking Tobacco: Former Smokeless Tobacco: Never Comments No Sex and Gender Information Value Date Recorded Sex Assigned at Not on file Legal Sex Female 1:02 AM BRANCH MECHANIC Gender Identity Not on file Sexual Orientation Not on file documented as of this encounter Plan of Treatment Not on file documented as of this encounter Procedures Procedure Name Priority Date/Time Associated Diagnosis Comments DIFFERENTIAL AUTO Routine 09/12/2018 10: 05 AM BRANCH MECHANIC Malignant neoplasm of upper lobe, right bronchus or lung (CMS/HCC) CBC WITH AUTO DIFFERENTIAL Routine 09/12/2018 10:05 AM BRANCH MECHANIC Malignant neoplasm of upper lobe, right bronchus or lung (CMS/HCC) COMPREHENSIVE METABOLIC PANEL STAT 09/12/2018 10:03 AM BRANCH MECHANIC Malignant neoplasm of upper lobe, right bronchus or lung (CMS/HCC) documented in this encounter Results * (ABNORMAL) Differential, auto (09/12/2018 10:05 AM BRANCH MECHANIC) Neutrophil abs 7.9(H) 1.8 - 6.6 K/cumm [facility] Comment:Testing performed by : [facility], [address] [place] [phone] Lymphocyte abs 1.4 1.2 - 3.3 K/cumm [facility]ER [facility]J Comment:Testing performed by : [facility], [address] [place] [phone] Monocyte abs 0.5 0.2 - 1.2 K/cumm [facility] Comment:Testing performed by : [facility], [address] [place] [phone] Eosinophil abs 0.1 0.0 - 0.5 K/cumm [facility]J Comment:Testing performed by : [facility], [address] [place] [phone] Basophil abs 0.1 0.0 - 0.2 K/cumm C[facility]ER [facility]J Comment:Testing performed by : [facility], [address] [place] [phone] Neutrophil pct 78.6 % [facility] Comment: Interpretive Data Percent cell count reference ranges are not reported, since discordance with absolute values may lead to misinterpretation of CBC data. Current Interpretive Data was last revised on 2017. Testing performed by: [facility], [address] [place] [phone] Lymphocyte pct 14.0 % A[facility]ENIO BELLA Comment: Interpretive Data Percent cell count reference ranges are not reported, since discordance with absolute values may lead to misinterpretation of CBC data. Current Interpretive Data was last revised on 2017. Testing performed by: [facility], [address] [place] [phone] Monocyte pct 5.1 % [facility]IO BELLA Comment:Testing performed by : [facility], [address] [place] [phone] Eosinophil pct 1.5 % [facility]ENIO BELLA Comment:Testing performed by : [facility], [address] [place] [phone] Basophil pct 0.8 % [facility]IO BELLA Comment:Testing performed by : [facility], [address] [place] [phone] Blood specimen (specimen) 09/12/2018 10:05 AM BRANCH MECHANIC 09/12/2018 10:06 AM BRANCH MECHANIC Narrative ARSENIO SMITH - 09/12/2018 10:10 AM BRANCH MECHANIC Zeeshan Rain MD LAB BLOOD ORDERABLES F inal Result [facility]IO BELLA [facility] [place] [address] * (ABNORMAL) CBC with auto differential (09/12/2018 10:05 AM BRANCH MECHANIC) WBC 10.0(H) 3.8 - 9.8 K/cumm ARSENIO SMITH Comment:Testing performed by : [facility], [address] [place] [phone] Hgb 14.5 12.1 - 15.1 g/dL ARSENIO SMITH Comment:Testing performed by : [facility], [address] [place] [address] Hct 43.2 36.1 - 44.3 % [facility]ER[facility]J Comment:Testing performed by : [facility], [address] [place] [address] Plt 210 140 - 440 K/cumm [facility] Comment:Testing performed by : [facility], [address] [place] [address] MPV 7.7 6.8 - 10.4 fL [facility] Comment:Testing performed by : [facility], [address] [place] [address] RBC 4.62 3.90 - 5.00 M/cumm [facility] Comment:Testing performed by : [facility], [address] [place] [address] MCV 93.5 80.0 - 97.6 fL [facility]J Comment:Testing performed by : [place] [address] MCH 31.3 26.7 - 33.7 pg [facility] Comment:Testing performed by : [facility], [address] [place] [address] MCHC 33.5 32.7 - 35.5 g/dL [facility] Comment:Testing performed by : [place] [address] RDW CV 14.1 11.8 - 14.6 % [facility] Comment:Testing performed by : [place] [address] NRBC abs 0.00 0.00 - 0.01 K/cumm ARSENIO [facility] Comment:Testing performed by : [facility], [address] [place], [place] [phone] Blood specimen (specimen) 09/12/2018 10:05 AM BRANCH MECHANIC 09/12/2018 10:06 AM BRANCH MECHANIC Narrative ARSENIO BELLA - 09/12/2018 10:10 AM BRANCH MECHANIC Zeeshan Rain MD LAB BLOOD ORDERABLES F inal Result [facility] [place] [address] * Comprehensive metabolic panel (09/12/2018 10:03 AM BRANCH MECHANIC) Sodium 142 135 - 145 mmol/L [facility] Potassium, pl 3.9 3.3 - 4.9 mmol/L [facility] Chloride 100 97 - 110 mmol/L [facility] CO2 32 22 - 32 mmol/L [facility] Anion gap 10 2 - 15 mmol/L [facility] BUN 13 8 - 25 mg/dL [facility] Creatinine 0.68 0.60 - 1.10 mg/dL [facility] Glucose 100 70 - 199 mg/dL [facility] Comment: Interpretive Data Fasting glucose >/= [...] 2017. Calcium 9.6 8.5 - 10.3 mg/dL [facility] Bilirubin, total 0.5 0.1 - 1.2 mg/dL [facility] Protein, pl 7.8 6.5 - 8.5 g/dL [facility] Albumin 4.1 3.5 - 5.0 g/dL [facility] Alk phos 97 40 - 130 Units/L [facility] ALT 22 7 - 45 Units/L [facility] AST 24 10 - 45 Units/L [facility] Blood specimen (specimen) 09/12/2018 10:03 AM BRANCH MECHANIC 09/12/2018 10:36 AM BRANCH MECHANIC Narrative [facility] - 09/12/2018 11:13 AM BRANCH MECHANIC Zeeshan Rain MD LAB BLOOD ORDERABLES F inal Result [facility] [place] [address] documented in this encounter Visit Diagnoses Diagnosis Malignant neoplasm of upper lobe, right bronchus or lung (HCC) documented in this encounter Orders Appointment Requests Count Last Ordered Date Fi rst Ordered Date ONCBCN LAB APPOINTMENT 1 09/12/2018 documented in this encounter Care Teams Forestry Worker Relationship Specialty Start Date End Date Paula Robles NP PCP - General 05/31/17 Zeeshan Rain MD Medical Oncologist/Electronic Development Technician Medical Oncology 02/11/18 08/23/22 Addy Mathur MD PhD [address] [place] [address] Radiation Oncologist Radiation Oncology 03/10/18 documented as of this encounter
--- OUTSIDE RECORDS SUMMARY | 2024-08-06 17:36 | XMS_ITS | Encounter Summary ---
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) #C,,,lab/rov Procedures ONCBCN LAB APPOINTMENT ARM DRAW Zeeshan Rain MD [address] [place] [address] Phone: tel: fax: [facility] [address] [facility] Advanced Medicine 7th [place] [address] [place] [address] Phone: tel: Referral ID Status Reason Start Date Expiration Date Visits Re quested Visits Authorized [id number] Closed 04/18/2018 08/08/2018 99 99 Encounter Details Date Type Department Care Team (Late st Contact Info) Description 06/13/2018 12:30 PM LUNCHROOM WORKER Lab [facility] [address] [facility] Advanced Medicine 7th [place] [address] [place] [address] Cancer of bronchus of right upper lobe (CMS/HCC) Social History Tobacco Use Types Packs/Day Years Used Date Smoking Tobacco: Former Smokeless Tobacco: Never Comments No Sex and Gender Information Value Date Recorded Sex Assigned at Not on file Legal Sex Female 1:02 AM LUNCHROOM WORKER Gender Identity Not on file Sexual Orientation Not on file documented as of this encounter Plan of Treatment Not on file documented as of this encounter Procedures Procedure Name Priority Date/Time Associated Diagnosis Comments DIFFERENTIAL AUTO Routine 06/13/2018 12: 33 PM LUNCHROOM WORKER Cancer of bronchus of right upper lobe (CMS/HCC) CBC WITH AUTO DIFFERENTIAL Routine 06/13/2018 12:33 PM LUNCHROOM WORKER Cancer of bronchus of right upper lobe (CMS/HCC) COMPREHENSIVE METABOLIC PANEL STAT 06/13/2018 12:30 PM LUNCHROOM WORKER Cancer of bronchus of right upper lobe (CMS/HCC) documented in this encounter Results * Differential, auto (06/13/2018 12:33 PM LUNCHROOM WORKER) Neutrophil abs 3.5 1.8 - 6.6 K/cumm C[facility]J Comment:Testing performed by : [facility], [address] [place] [phone] Lymphocyte abs 1.4 1.2 - 3.3 K/cumm [facility] Comment:Testing performed by : [facility], [address] [place] [phone] Monocyte abs 0.4 0.2 - 1.2 K/cumm [facility] Comment:Testing performed by : [facility], [address] [place] [phone] Eosinophil abs 0.1 0.0 - 0.5 K/cumm [facility] Comment:Testing performed by : [facility], [address] [place] [phone] Basophil abs 0.0 0.0 - 0.2 K/cumm [facility] Comment:Testing performed by : [facility], [address] [place] [phone] Neutrophil pct 65.1 % [facility] Comment: Interpretive Data Percent cell count reference ranges are not reported, since discordance with absolute values may lead to misinterpretation of CBC data. Current Interpretive Data was last revised on 2017. Testing performed by: [facility], [address] [place] [phone] Lymphocyte pct 24.9 % ARSENIO BELLA Comment: Interpretive Data Percent cell count reference ranges are not reported, since discordance with absolute values may lead to misinterpretation of CBC data. Current Interpretive Data was last revised on 2017. Testing performed by: [facility], [address] [place] [phone] Monocyte pct 6.9 % ARSENIO BELLA Comment:Testing performed by : [facility], [address] [place] [phone] Eosinophil pct 2.3 % A[facility]ENIO BELLA Comment:Testing performed by : [facility], [address] [place] [phone] Basophil pct 0.8 % ARSENIO BELLA Comment:Testing performed by : [address] [phone] Blood specimen (specimen) 06/13/2018 12:33 PM LUNCHROOM WORKER 06/13/2018 12:35 PM LUNCHROOM WORKER Narrative A[facility]IO BELLA - 06/13/2018 12:38 PM LUNCHROOM WORKER us Zeeshan Rain MD LAB BLOOD ORDERABLES F inal Result [facility] Department [place] [address] * CBC with auto differential (06/13/2018 12:33 PM LUNCHROOM WORKER) WBC 5.4 3.8 - 9.8 K/cumm ARSENIO BELLA Comment:Testing performed by : [address] [phone] Hgb 13.9 12.1 - 15.1 g/dL ARSENIO BELLA Comment:Testing performed by : [address] [phone] Hct 41.4 36.1 - 44.3 % ARSENIO BELLA Comment:Testing performed by : [facility], [address] [place], [place] [id number] Plt 220 140 - 440 K/cumm ARSENIO BELLA Comment:Testing performed by : [facility], [address] [place], [place] [id number] MPV 7.2 6.8 - 10.4 fL ARSENIO BELLA Comment:Testing performed by : [facility], [address] [place] [address] RBC 4.40 3.90 - 5.00 M/cumm ARSENIO BELLA Comment:Testing performed by : [facility], [address] [place], [place] [id number] MCV 94.1 80.0 - 97.6 fL ARSENIO BELLA Comment:Testing performed by : [facility], [address] [place], [place] [id number] MCH 31.6 26.7 - 33.7 pg ARSENIO BELLA Comment:Testing performed by : [facility], [address] [place], [place] [id number] MCHC 33.6 32.7 - 35.5 g/dL [facility] Comment:Testing performed by : [place] [id number] RDW CV 13.7 11.8 - 14.6 % [facility]IO [facility] Comment:Testing performed by : [place] [id number] NRBC abs 0.00 0.00 - 0.01 K/cumm [facility] Comment:Testing performed by : [facility], [address] [place], [place] [id number] Blood specimen (specimen) 06/13/2018 12:33 PM LUNCHROOM WORKER 06/13/2018 12:35 PM LUNCHROOM WORKER Narrative [facility]LLA - 06/13/2018 12:38 PM LUNCHROOM WORKER us Zeeshan Rain MD LAB BLOOD ORDERABLES F inal Result ARSENIO BELL[facility] Department [place] [address] * Comprehensive metabolic panel (06/13/2018 12:30 PM LUNCHROOM WORKER) Sodium 143 135 - 145 mmol/L [facility] Potassium, pl 3.8 3.3 - 4.9 mmol/L [facility] Chloride 103 97 - 110 mmol/L [facility] CO2 31 22 - 32 mmol/L [facility] Anion gap 9 2 - 15 mmol/L [facility] BUN 13 8 - 25 mg/dL [facility] Creatinine 0.74 0.60 - 1.10 mg/dL [facility] Glucose 96 70 - 199 mg/dL [facility] Comment: Interpretive Data Fasting glucose >/= 126 [...] Calcium 9.2 8.5 - 10.3 mg/dL [facility] Bilirubin, total 0.4 0.1 - 1.2 mg/dL [facility] Protein, pl 7.2 6.5 - 8.5 g/dL [facility] Albumin 4.2 3.5 - 5.0 g/dL [facility] Alk phos 96 40 - 130 Units/L [facility] ALT 19 7 - 45 Units/L [facility] AST 24 10 - 45 Units/L [facility] Blood specimen (specimen) 06/13/2018 12:30 PM LUNCHROOM WORKER 06/13/2018 12:46 PM LUNCHROOM WORKER Narrative [facility] - 06/13/2018 1:15 PM LUNCHROOM WORKER us Zeeshan Rain MD LAB BLOOD ORDERABLES F inal Result 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
--- OUTSIDE RECORDS SUMMARY | 2024-08-06 17:36 | XMS_ITS | Encounter Summary ---
Author Organization [facility] Address [address] [place] [address] Phone Care Team Providers Care Flame Cutter Name Role Phone Travis Paula Knowles NP Primary Care Provider + Zeeshan Rain MD Unavailable [phone] [facility] MD PhD Unavailable + [phone] Reason for Referral * Diagnostic Imaging (Routine) - Closed Specialty Diagnoses / Procedures Referred By Alan bangura Referred To Contact Radiology Diagnoses Malignant neoplasm of upper lobe, right bronchus or lung (HCC) Procedures MRI Brain W WO Contrast Zeeshan Rain MD Phone: tel: fax: [address] [address] Referral ID Status Reason Start Date Expiration Date Visits Re quested Visits Authorized [id number] Closed 09/12/2018 03/23/2020 1 1 MITH HELPER * Diagnostic Imaging (Routine) - Closed Specialty Diagnoses / Procedures Referred By Alan bangura Referred To Contact Radiology Diagnoses Malignant neoplasm of upper lobe, right bronchus or lung (HCC) Procedures CT Chest Abdomen Pelvis W Contrast Zeeshan Rain MD Phone: tel: fax: [facility] [address] [place] [address] Referral ID Status Reason Start Date Expiration Date Visits Re quested Visits Authorized [id number] Closed 09/12/2018 03/23/2020 1 1 MITH HELPER Reason for Visit * Oncology (Routine) - Closed Specialty Diagnoses / Procedures Referred By Contac t Referred To Contact Medical Oncology / Oncology Diagnoses Malignant neoplasm of upper lobe, right bronchus or lung (HCC) lab,rov Procedures ONCBCN CLINIC APPOINTMENT REQUEST RETURN Zeeshan Rain MD [address] [address] Phone: tel: fax: Zeeshan Rain MD [address] [address] Phone: tel: fax: Referral ID Status Reason Start Date Expiration Date Visits Re quested Visits Authorized [id number] Closed 09/12/2018 08/08/2019 99 99 Encounter Details Date Type Department Care Team (Late st Contact Info) Description 09/12/2018 10:40 AM TINSMITH HELPER Office Visit [facility] Oncology [address] [facility] 7th [place] [address] [place] [address] Zeeshan Rain MD [address] [place] [address] Malignant neoplasm of upper lobe, right bronchus or lung (CMS/HCC) (Primary Dx) Social History Tobacco Use Types Packs/Day Years Used Date Smoking Tobacco: Former Smokeless Tobacco: Never Comments No Sex and Gender Information Value Date Recorded Sex Assigned at Not on file Legal Sex Female 1:02 AM TINSMITH HELPER Gender Identity Not on file Sexual Orientation Not on file documented as of this encounter Last Filed Vital Signs Vital Sign Reading Time Taken Comments Blood Pressure 135/82 09/12/2018 10:22 AM TINSMITH HELPER Pulse 103 09/12/2018 10:22 AM TINSMITH HELPER Temperature 36.6 ??C (97.9 ??F) 09/12/2018 1 0:22 AM TINSMITH HELPER Respiratory Rate 20 09/12/2018 10:2 2 AM TINSMITH HELPER Oxygen Saturation 94% 09/12/2018 10: 22 AM TINSMITH HELPER Inhaled Oxygen Concentration - - Weight 107.3 kg (236 lb 9.6 oz) 019 10:22 AM TINSMITH HELPER Height - - Body Mass Index 43.27 06/09/2018 2:13 PM CDT documented in this encounter Progress Notes * Mily Reddy, ARTI - 09/12/2018 10:40 AM [facility]PART[facility] OF MEDICINE - MEDICAL ONCOLOGY [address] [place] [phone] PHONE: FAX: Medical Oncology Follow-up Note Oncology History DIAGNOSIS: 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 Tumor specimen demonstrates CD56, synaptophysin, cytokeratin, and [...] her appetite and energy are both good. She denies any new symptoms other than some occasional nasal congestion with clear mucus. PAST MEDICAL HISTORY: 1. COPD/asthma. 2. History of community-acquired pneumonia. 3. Radiographic findings of pulmonary hypertension on CT scan. SOCIAL HISTORY: She is currently retired. 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 She lives in [place], [place]. She quit smoking in 2008 but [...] Systems: All other systems negative Vitals: BP: 135/82 Temp: 36.6 ??C (97.9 ??F) Temp src: Oral Pulse: 103 Resp: 20 SpO2: 94 % Weight: 107.3 kg (236 lb 9.6 oz) Physical Exam: General: Alert, [...] CBC: Lab Results Component Value Date/Time WBC 10.0 (H) 09/12/2018 10:05 AM HGB 14.5 09/12/2018 10:05 AM HCT 43.2 09/12/2018 10:05 AM MCV 93.5 09/12/2018 10:05 AM NEUTROABS 7.9 (H) 09/12/2018 10:05 AM CMP: Lab Results Component Value Date/Time [...] PM ANIONGAP 9 06/13/2018 12:30 PM Radiology: Ct Chest Abdomen Pelvis W Contrast: 09/07/2018 Stable postradiation changes within right upper lobe with no evidence of metastatic disease in chest, abdomen or pelvis. Assessment and Plan: Gaby [place] is a 68-year-old lady with limited stage small cell lung cancer for which she received concurrent chemoradiation followed by prophylactic cranial irradiation. Her scan today show no evidence of progression; I have reviewed this with Ms. Gaby [place] and her . We will seeher back in 3 months with a restaging CT scan and a brain MRI. She will call us in the interim for any questions, concerns, or worsening symptoms. She is agreeable with this plan of care. Mily Reddy DNP, [facility] Division of Oncology [facility] [place] MITH HELPER documented in this encounter Plan of Treatment Not on file documented as of this encounter Results * CBC with auto differential (12/05/2018 9:51 AM CDT) WBC 5.1 3.8 - 9.8 K/cumm [facility] Comment:Testing performed by : [facility], [address] [place] [phone] Hgb 13.8 12.1 - 15.1 g/dL [facility] Comment:Testing performed by : [facility], [address] [place] [phone] Hct 40.5 36.1 - 44.3 % [facility] Comment:Testing performed by : [facility], [address] [place] [phone] Plt 204 140 - 440 K/cumm [facility] Comment:Testing performed by : [facility], [address] [place] [phone] MPV 7.5 6.8 - 10.4 fL [facility] Comment:Testing performed by : [facility], [address] [place] [phone] RBC 4.41 3.90 - 5.00 M/cumm [facility] Comment:Testing performed by : [facility], [address] [place], [place] [phone] MCV 91.9 80.0 - 97.6 fL [facility] Comment:Testing performed by : [facility], [address] [place] [phone] MCH 31.2 26.7 - 33.7 pg [facility] Comment:Testing performed by : [facility], [address] [place] [phone] MCHC 33.9 32.7 - 35.5 g/dL [facility] Comment:Testing performed by : [facility], [address] [place], [place] [phone] RDW CV 14.3 11.8 - 14.6 % [facility] Comment:Testing performed by : [facility], [address] [place] [phone] NRBC abs 0.00 0.00 - 0.01 K/cumm [facility] Comment:Testing performed by : [facility], [address] [place] [phone] Blood specimen (specimen) 12/05/2018 9:51 AM CDT 12/05/2018 9:53 AM CDT Narrative [facility] - 12/05/2018 9:58 AM CDT Zeeshan Rain MD LAB BLOOD ORDERABLES F inal Result [facility] One [facility] [place] [address] * Comprehensive metabolic panel (12/05/2018 9:51 AM CDT) Sodium 144 135 - 145 mmol/L [facility] Potassium, pl 3.4 3.3 - 4.9 mmol/L [facility] Chloride 101 97 - 110 mmol/L [facility] CO2 31 22 - 32 mmol/L [facility] Anion gap 12 2 - 15 mmol/L [facility] BUN 12 8 - 25 mg/dL [facility] Creatinine 0.65 0.60 - 1.10 mg/dL [facility] Glucose 89 70 - 199 mg/dL [facility] Comment: Interpretive Data Fasting glucose >/= 126 [...] 2017. Calcium 9.1 8.5 - 10.3 mg/dL [facility] Bilirubin, total 0.5 0.1 - 1.2 mg/dL [facility] Protein, pl 7.2 6.5 - 8.5 g/dL [facility] Albumin 4.1 3.5 - 5.0 g/dL [facility] Alk phos 95 40 - 130 Units/L [facility] ALT 21 7 - 45 Units/L [facility] AST 21 10 - 45 Units/L [facility] Blood specimen (specimen) 12/05/2018 9:51 AM CDT 12/05/2018 10:43 AM CDT Narrative [facility] - 12/05/2018 11:41 AM CDT us Zeeshan Rain MD LAB BLOOD ORDERABLES F inal Result [facility] One [facility] Department [place] [address] * MRI Brain W WO Contrast (12/01/2018 [...] * CT Chest Abdomen Pelvis W Contrast (12/01/2018 10:39 AM CDT) Anatomical Region Laterality Modality Body N/A Computed Tomogra phy 12/01/2018 10:5 7 AM CDT Impressions 12/01/2018 10:57 AM CDT Stable examination with no evidence of local recurrence or metastatic disease in the chest, abdomen, or pelvis. New infiltrates in the left lower lobe and minimally in the right middle lobe suggestive of aspiration, and stable 3 mm left upper lobe nodule. Electronically signed by: Sohail Mariscal M.D. Narrative 12/01/2018 10:57 AM CDT EXAMINATION: ??Computed tomography of the chest, abdomen and pelvis with intravenous contrast HISTORY: Right upper lobe lung cancer, evaluate for metastases. Patient has limited stage small cell lung cancer of the right upper lobe status post concurrent chemoradiation completed on 08/03/2017. TECHNIQUE: ??Transaxial computed tomographic images of the chest, abdomen and pelvis were obtained with intravenous contrast according to the standard protocol after the uneventful administration of 125 mL Opti-Ray 350 intravenous contrast. COMPARISON: CT chest abdomen pelvis performed on 09/07/2018 FINDINGS: ?? Chest: Redemonstrated fibrotic linear and interstitial thickening with volume loss in the right upper lobe and perihilar region corresponding to post radiation changes. ??Groundglass and minimal tree-in-bud infiltrates are seen in the left lower lobe, likely representing focal aspiration, 105/135. ??New focal infiltrates are seen in the right lower lobe anteriorly, 93/135. ??Stable nodule is seen in the left upper lobe laterally, 39/135, measuring 0.3 cm, stable since 04/14/2018. ??No new pulmonary nodules. Visualized thyroid is unremarkable. ??There are no enlarged mediastinal, hilar, or axillary lymph nodes. ??No pleural or significant pericardial effusions. ??Minimal coronary artery calcifications are seen. ??The heart is not enlarged. ??No central pulmonary embolism. ??The pulmonary artery is dilated with a diameter of 3.7 cm, soft marker for pulmonary hypertension. ??There is a background of pulmonary emphysema. Abdomen/Pelvis: The liver, spleen, adrenal glands, left kidney, and pancreas are normal. ??Exophytic hypoattenuating lesion arising from the anterior mid right kidney, 161/295 is unchanged and is indeterminate on this study with CT density of 35HU. ??This however has been previously characterized as minimally complex cyst. There is cholelithiasis. ??Splenule is noted anterior to the spleen. No biliary dilation. ??No free fluid, enlarged lymph nodes, or soft tissue masses are seen in the abdomen or pelvis. ??There is an umbilical fat-containing umbilical hernia. ??There is colonic diverticulosis. ??In the pelvis, the bladder, uterus, and adnexa are unremarkable. ??No aggressive bone lesions. ??Degenerative changes are seen in the spine. ??Redemonstrated is fusion and L4-L5. Procedure Note Sohail Mariscal MD - 12/01/2018 EXAMINATION: Computed tomography of the chest, abdomen and pelvis with intravenous contrast HISTORY: Right upper lobe lung cancer, evaluate for metastases. Patient has limited stage small cell lung cancer of the right upper lobe status post concurrent chemoradiation completed on 08/03/2017. TECHNIQUE: Transaxial computed tomographic images of the chest, abdomen and pelvis were obtained with intravenous contrast according to the standard protocol after the uneventful administration of 125 mL Opti-Ray 350 intravenous contrast. COMPARISON: CT chest abdomen pelvis performed on 09/07/2018 FINDINGS: Chest: Redemonstrated fibrotic linear and interstitial thickening with volume loss in the right upper lobe and perihilar region corresponding to post radiation changes. Groundglass and minimal tree-in-bud infiltrates are seen in the left lower lobe, likely representing focal aspiration, 105/135. New focal infiltrates are seen in the right lower lobe anteriorly, 93/135. Stable nodule is seen in the left upper lobe laterally, 39/135, measuring 0.3 cm, stable since 04/14/2018. No new pulmonary nodules. Visualized thyroid is unremarkable. There are no enlarged mediastinal, hilar, or axillary lymph nodes. No pleural or significant pericardial effusions. Minimal coronary artery calcifications are seen. The heart is not enlarged. No central pulmonary embolism. The pulmonary artery is dilated with a diameter of 3.7 cm, soft marker for pulmonary hypertension. There is a background of pulmonary emphysema. Abdomen/Pelvis: The liver, spleen, adrenal glands, left kidney, and pancreas are normal. Exophytic hypoattenuating lesion arising from the anterior mid right kidney, 161/295 is unchanged and is indeterminate on this study with CT density of 35HU. This however has been previously characterized as minimally complex cyst. There is cholelithiasis. Splenule is noted anterior to the spleen. No biliary dilation. No free fluid, enlarged lymph nodes, or soft tissue masses are seen in the abdomen or pelvis. There is an umbilical fat-containing umbilical hernia. There is colonic diverticulosis. In the pelvis, the bladder, uterus, and adnexa are unremarkable. No aggressive bone lesions. Degenerative changes are seen in the spine. Redemonstrated is fusion and L4-L5. IMPRESSION: Stable examination with no evidence of local recurrence or metastatic disease in the chest, abdomen, or pelvis. New infiltrates in the left lower lobe and minimally in the right middle lobe suggestive of aspiration, and stable 3 mm left upper lobe nodule. Electronically signed by: Sohail Mariscal M.D. Zeeshan [...] Date ONCBCN CLINIC APPOINTMENT REQUEST 2 019 09/12/2018 ONCBCN LAB APPOINTMENT 1 12/05/2018 documented in this encounter Care Teams Flame Cutter Relationship Specialty Start Date End Date Paula Robles NP PCP - General 05/31/17 Zeeshan Rain MD Medical Oncologist/Plumber Medical Oncology 02/11/18 08/23/22 Addy Mathur MD PhD [address] [place] [address] Radiation Oncologist Radiation Oncology 03/10/18 documented as of this encounter
--- OUTSIDE RECORDS SUMMARY | 2024-08-06 17:36 | XMS_ITS | Encounter Summary ---
Author Organization [facility] Address [address] [place] [address] Phone Care Team Providers Care Hub Associate Name Role Phone Travis Paula Knowles NP Primary Care Provider + Zeeshan Rain MD Unavailable [phone] [facility] PhD Unavailable [phone] Reason for Referral * Diagnostic Imaging (Routine) - Closed Specialty Diagnoses / Procedures Referred By Alan t Referred To Contact Radiology Diagnoses Malignant neoplasm of upper lobe, right bronchus or lung (HCC) Procedures CT Chest Abdomen Pelvis W Contrast Zeeshan Rain MD Phone: tel: fax: [address] [address] Referral ID Status Reason Start Date Expiration Date Visits Re quested Visits Authorized [id number] Closed 12/05/2018 06/15/2020 1 1 Encounter Details Date Type Department Care Team (Late st Contact Info) Description 12/05/2018 11:00 AM CDT Office Visit [facility] [address] 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 Gender Identity Not on file Sexual Orientation Not on file documented as of this encounter Last Filed Vital Signs Vital Sign Reading Time Taken Comments Blood Pressure 128/78 12/05/2018 10:08 AM CDT Pulse 94 12/05/2018 10:08 AM CDT Temperature 37 ??C (98.6 ??F) 12/05/2018 10:08 AM CDT Respiratory Rate 23 12/05/2018 10:08 AM CDT Oxygen Saturation 92% 12/05/2018 10:08 AM CDT Inhaled Oxygen Concentration - - Weight 108 kg (238 lb) 12/05/2018 10:08 AM CDT Height - - Body Mass Index 43.53 06/09/2018 2:13 PM CDT documented in this encounter Progress Notes * Zeeshan Rain MD - 12/05/2018 11:00 AM CDT [facility] DEPARTMENT OF MEDICINE - MEDICAL ONCOLOGY [address] [place] [phone] PHONE: FAX: Medical Oncology Follow-up Note Oncology History DIAGNOSIS: 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 Tumor specimen demonstrates CD56, synaptophysin, cytokeratin, and [...] any evidence concerning for disease progression. Her scans over the demonstrate indeterminate ground-glass opacities in both lungs, possibly related to aspiration. Left upper lobe nodule that measures 3 mm is stable. She denies any worsening cough, shortness of breath, nausea, vomiting, fever, chills, rash, diarrhea, or pain. She reports that her appetite and energy are both good. She denies any new symptoms. PAST MEDICAL HISTORY: 1. COPD/asthma. 2. History of community-acquired pneumonia. 3. Radiographic findings of pulmonary hypertension on CT scan. SOCIAL HISTORY: She is currently retired. 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 She lives in [place], [place]. She quit smoking in 2008 but [...] Systems: All other systems negative Vitals: BP: 128/78 Temp: 37 ??C (98.6 ??F) Temp src: Oral Pulse: 94 Resp: 23 SpO2: 92 % Weight: 108 kg (238 lb) Physical Exam: General: Alert, awake and [...] CBC: Lab Results Component Value Date/Time WBC 5.1 12/05/2018 09:51 AM HGB 13.8 12/05/2018 09:51 AM HCT 40.5 12/05/2018 09:51 AM MCV 91.9 12/05/2018 09:51 AM NEUTROABS 2.8 12/05/2018 09:51 AM CMP: Lab Results Component Value Date/Time SODIUM 142 09/12/2018 10:03 AM POTASSIUM 3.9 09/12/2018 10:03 AM CO2 32 09/12/2018 10:03 AM BUNSER 13 09/12/2018 10:03 AM GLUCOSE 100 09/12/2018 10:03 AM CREATININE 0.68 09/12/2018 10:03 AM CALCIUM 9.6 09/12/2018 10:03 AM CHLORIDE 100 09/12/2018 10:03 AM ALBUMIN 4.1 09/12/2018 10:03 AM AST 24 09/12/2018 10:03 AM ALT 22 09/12/2018 10:03 AM ALKPHOS 97 09/12/2018 10:03 AM BILITOT 0.5 09/12/2018 10:03 AM PROT 7.8 09/12/2018 10:03 AM ANIONGAP 10 09/12/2018 10:03 AM Radiology: IMPRESSION (MRI 12/01/18): No brain metastasis. No acute intracranial abnormal finding. IMPRESSION (CT C/A/P 12/01/18): Stable examination with no evidence of local recurrence or metastatic disease in the chest, abdomen, or pelvis. New infiltrates in the left lower lobe and minimally in the right middle lobe suggestive of aspiration, and stable 3 mm left upper lobe Nodule. Assessment and Plan: Gaby Morgan is a 68-year-old lady with limited stage small cell lung cancer for which she received concurrent chemoradiation followed by prophylactic cranial irradiation. Her scan today show no evidence of progression; I have reviewed this with . Gaby Morgan and her . We will seeher back in 3 months with a restaging CT scan and repeat brain MRI in 6 months. We will also set her up for a swallow evaluation to rule out aspiration. We will monitor the indeterminate changes on her scan closely. She will call us in the interim for any questions, concerns, or worsening symptoms.She is agreeable with this plan of care. Zeeshan Rain MD Suede Brushermedical manager Division of Medical Oncology [facility] in .[facility] Please note: Suede Brusher was completed by using M*Modal Fluency Direct speaking software, variances may therefore occur. documented in this encounter Plan of Treatment Not on file documented as of this encounter Results * CBC with auto differential (03/06/2019 9:55 AM CDT) WBC 4.9 3.8 - 9.8 K/cumm [facility] Comment:Testing performed by : [facility], [address] [place], [place] [id number] Hgb 13.8 12.1 - 15.1 g/dL [facility] Comment:Testing performed by : [facility], [address] [place], [place] [id number] Hct 39.8 36.1 - 44.3 % [facility] Comment:Testing performed by : [place] [id number] Plt 195 140 - 440 K/cumm [facility] Comment:Testing performed by : [place] [id number] MPV 7.7 6.8 - 10.4 fL [facility] Comment:Testing performed by : [place] [address] RBC 4.38 3.90 - 5.00 M/cumm [facility] Comment:Testing performed by : [place] [address] MCV 91.0 80.0 - 97.6 fL [facility] Comment:Testing performed by : [place] [id number] MCH 31.5 26.7 - 33.7 pg [facility] Comment:Testing performed by : [place] [id number] MCHC 34.6 32.7 - 35.5 g/dL [facility] Comment:Testing performed by : [place] [id number] RDW CV 13.8 11.8 - 14.6 % [facility] Comment:Testing performed by : [place] [id number] NRBC abs 0.00 0.00 - 0.01 K/cumm [facility] Comment:Testing performed by : [facility], [address] [facility] [phone] Blood specimen (specimen) 03/06/2019 9:55 AM CDT 03/06/2019 9:56 AM CDT Zeeshan Rain MD LAB BLOOD ORDERABLES F inal Result [facility] One [facility] [place] [address] * Comprehensive metabolic panel (03/06/2019 9:55 AM CDT) Sodium 142 135 - 145 mmol/L [facility] Potassium, pl 3.7 3.3 - 4.9 mmol/L [facility] Chloride 100 97 - 110 mmol/L [facility] CO2 30 22 - 32 mmol/L [facility] Anion gap 12 2 - 15 mmol/L [facility] BUN 14 8 - 25 mg/dL [facility] Creatinine 0.62 0.60 - 1.10 mg/dL [facility] Glucose 103 70 - 199 mg/dL [facility] Comment: Interpretive Data Fasting glucose >/= [...] 2017. Calcium 9.3 8.5 - 10.3 mg/dL [facility] Bilirubin, total 0.5 0.1 - 1.2 mg/dL [facility] Protein, pl 7.1 6.5 - 8.5 g/dL [facility] Albumin 4.1 3.5 - 5.0 g/dL [facility] Alk phos 88 40 - 130 Units/L [facility] ALT 20 7 - 45 Units/L [facility] AST 19 10 - 45 Units/L [facility] Blood specimen (specimen) 03/06/2019 9:55 AM CDT 03/06/2019 10:20 AM CDT Zeeshan Rain MD LAB BLOOD ORDERABLES F inal Result [facility] One [facility] [place] [address] * CT Chest Abdomen Pelvis W Contrast [...] may reflect changes made after this encounter. metroNIDAZOLE 0.75 % lotion GRETEL EXT AA QD 0 10/14/2018 03/08/2023 azithromycin (ZITHROMAX) 250 mg tablet 0 09/16/2018 07/20/2022 added in this encounter Orders Appointment Requests Count Last Ordered Date Fi rst Ordered Date ONCBCN CLINIC APPOINTMENT REQUEST 2 019 12/05/2018 ONCBCN LAB APPOINTMENT 1 03/06/2019 documented in this encounter Care Teams Hub Associate Relationship Specialty Start Date End Date Paula Robles NP PCP - General 05/31/17 Zeeshan Rain MD Medical Oncologist/Prop Attendant Medical Oncology 02/11/18 08/23/22 Addy Mathur MD PhD [address] [place] [address] Radiation Oncologist Radiation Oncology 03/10/18 documented as of this encounter
--- OUTSIDE RECORDS SUMMARY | 2024-08-06 17:36 | XMS_ITS | Encounter Summary ---
Author Organization [facility] Healthcare Address [address] [place] [address] Care Team Providers Care Shoe Singer Name Role Phone Paula Robles Eleni UTILITIES MANAGER Primary Care Provider + Zeeshan Rain MD Unavailable [phone] Addy reyna MD PhD Unavailable + [phone] Reason for Referral * Diagnostic Imaging (Routine) - Closed Specialty Diagnoses / Procedures Referred By Alan bangura Referred To Contact Radiology Diagnoses Cancer of bronchus of right upper lobe (HCC) Procedures CT Chest Abdomen Pelvis W Contrast Zeeshan Rain MD Phone: tel: fax: [address] [address] Referral ID Status Reason Start Date Expiration Date Visits Re quested Visits Authorized [id number] Closed 04/18/2018 10/28/2019 1 1 Reason for Visit * Diagnostic Imaging (Routine) - Closed Specialty Diagnoses / Procedures Referred By Alan bangura Referred To Contact Radiology Diagnoses Cancer of bronchus of right upper lobe (HCC) Procedures CT Chest Abdomen Pelvis W Contrast Zeeshan Rain MD Phone: tel: fax: [address] [place] [address] Referral ID Status Reason Start Date Expiration Date Visits Re quested Visits Authorized [id number] Closed 04/18/2018 10/28/2019 1 1 Encounter Details Date Type Department Care Team (Latest Contact Info) Description 06/09/2018 11:37 AM CDT - 06/09/2018 12:40 PM CDT Hospital Encounter [facility] [address] [place] [address] Zeeshan Rain MD [address] [place] [address] Cancer of bronchus of right upper lobe (CMS/HCC) Discharge Disposition: Discharge to home or self care Social History Tobacco Use Types Packs/Day Years Used Date Smoking Tobacco: Former Smokeless Tobacco: Never Comments No Sex and Gender Information Value Date Recorded Sex Assigned at Not on file 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 Gender Identity Not on file Sexual [...] Schedule Routine, Read Routine (OP Routine) 06/09/2018 12:21 PM CDT Cancer of bronchus of right [...] Rate Site ioversol (OPTIRAY 350) syringe syringe 100 mL 100 mL, intravenous, Once in imaging, contrast, Starting on La 06/09/18 at 1213, For 1 dose Given 06/09/2018 12:22 PM CDT 100 mL documented in this encounter Orders Medications Ordered That Adam ht Not Have Been Administered Count Last Ordered Date First Ordered Date ioversol (OPTIRAY 350) syrin ge syringe 100 mL 1 06/09/2018 documented in this encounter Care Teams Shoe Singer Relationship Specialty Start Date End Date Paula Robles NP PCP - General 05/31/17 Zeeshan Rain MD Medical Oncologist/Yarn Handler Medical Oncology 02/11/18 08/23/22 Addy Mathur MD PhD [address] [place] [address] Radiation Oncologist Radiation Oncology 03/10/18 documented as of this encounter
--- OUTSIDE RECORDS SUMMARY | 2024-08-06 17:36 | XMS_ITS | Encounter Summary ---
Author Organization [facility] Healthcare Address [address] [place] [address] Care Team Providers Care Tool Machinist Name Role Phone Paula Robles Eleni SENIOR LINUX SYSTEMS ENGINEER Primary Care Provider + Zeeshan Rain MD Unavailable [phone] Addy reyna MD PhD Unavailable + [phone] Reason for Referral * Diagnostic Imaging (Routine) - Closed Specialty Diagnoses / Procedures Referred By Alan bangura Referred To Contact Radiology Diagnoses Cancer of bronchus of right upper lobe (HCC) Procedures CT Chest Abdomen Pelvis W Contrast Zeeshan Rain MD Phone: tel: fax: [address] [address] Referral ID Status Reason Start Date Expiration Date Visits Re quested Visits Authorized [id number] Closed 02/14/2018 08/26/2019 1 1 Reason for Visit * Diagnostic Imaging (Routine) - Closed Specialty Diagnoses / Procedures Referred By Alan bangura Referred To Contact Radiology Diagnoses Cancer of bronchus of right upper lobe (HCC) Procedures CT Chest Abdomen Pelvis W Contrast Zeeshan Rain MD Phone: tel: fax: [address] [place] [address] Referral ID Status Reason Start Date Expiration Date Visits Re quested Visits Authorized [id number] Closed 02/14/2018 08/26/2019 1 1 Encounter Details Date Type Department Care Team (Latest Contact Info) Description 04/14/2018 12:57 PM CDT - 04/14/2018 11:59 PM CDT Hospital Encounter [facility] [address] [place] [address] Zeeshan Rain MD [address] [place] [address] Cancer of bronchus of right upper lobe (CMS/HCC) Discharge Disposition: Discharge to home or self care Social History Tobacco Use Types Packs/Day Years Used Date Smoking Tobacco: Former Smokeless Tobacco: Never Comments No Sex and Gender Information Value Date Recorded Sex Assigned at Not on file 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 Evolving right lung postradiation treatment changes. No evidence of metastatic disease within the chest. 2. Indeterminate enhancing 1.4 cm right anterior interpolar pole renal lesion. Recommend correlation with renal ultrasound for further characterization. 3. Cholelithiasis without evidence of acute cholecystitis. Electronically signed by: Steve Piña M.D. Narrative 04/14/2018 3:46 PM CDT EXAMINATION: ??Computed tomography of the chest, abdomen and pelvis with intravenous contrast HISTORY: 67-year-old with right upper lobe small cell carcinoma chemoradiation. TECHNIQUE: ??Transaxial computed tomographic images of the chest, abdomen and pelvis were obtained with intravenous contrast according to the standard protocol after the uneventful administration of 100 mL Opti-Ray 350 intravenous contrast. COMPARISON: 02/11/2018 FINDINGS: ?? Chest: Visualized portions of the thyroid and esophagus are unremarkable. No supraclavicular, mediastinal, hilar or axillary adenopathy. Nonaneurysmal thoracic aorta with common origin of the innominate and left common carotid arteries. Scattered calcified atherosclerosis of the thoracic aorta and coronary arteries. Normal cardiac size with trace pericardial effusion. Nonenlarged pulmonary arterial trunk without central pulmonary embolus. Trachea is unremarkable. Unchanged volume loss of the right hemithorax with persistent right middle lobe atelectasis consistent with evolving postradiation changes. No evidence of recurrent or metastatic disease in the lungs. Linear subsegmental atelectasis in the lingula and left lower lobe are unchanged. No new suspicious pulmonary nodules. No pleural effusion or pneumothorax. Abdomen/Pelvis: Normal size and contour of the liver without focal hepatic lesion or intrahepatic biliary duct dilatation on the spleen, adrenal glands, pancreas and left kidney. There is a 1.4 x 1.0 cm anterior right interpolar renal lesion with enhancement (previously fluid attenuation). No hydronephrosis. Calcified gallstones without evidence of acute cholecystitis. Nonaneurysmal abdominal aorta with scattered aortoiliac calcifications. Normal caliber IVC. No retroperitoneal, mesenteric or pelvic adenopathy. The stomach and small bowel are normal caliber. Normal caliber colon with scattered sigmoid diverticulosis. No diverticulitis, paracolic fat stranding or focal wall thickening. Normal appendix. Normal uterus and bladder. No pelvic mass, free fluid or free air within the abdomen. Unchanged fat-containing paraumbilical hernia. Mild multilevel spondylosis. No destructive osseous lesions. Procedure Note Steve Piña MD - 04/14/2018 EXAMINATION: Computed tomography of the chest, abdomen and pelvis with intravenous contrast HISTORY: 67-year-old with right upper lobe small cell carcinoma chemoradiation. TECHNIQUE: Transaxial computed tomographic images of the chest, abdomen and pelvis were obtained with intravenous contrast according to the standard protocol after the uneventful administration of 100 mL Opti-Ray 350 intravenous contrast. COMPARISON: 02/11/2018 FINDINGS: Chest: Visualized portions of the thyroid and esophagus are unremarkable. No supraclavicular, mediastinal, hilar or axillary adenopathy. Nonaneurysmal thoracic aorta with common origin of the innominate and left common carotid arteries. Scattered calcified atherosclerosis of the thoracic aorta and coronary arteries. Normal cardiac size with trace pericardial effusion. Nonenlarged pulmonary arterial trunk without central pulmonary embolus. Trachea is unremarkable. Unchanged volume loss of the right hemithorax with persistent right middle lobe atelectasis consistent with evolving postradiation changes. No evidence of recurrent or metastatic disease in the lungs. Linear subsegmental atelectasis in the lingula and left lower lobe are unchanged. No new suspicious pulmonary nodules. No pleural effusion or pneumothorax. Abdomen/Pelvis: Normal size and contour of the liver without focal hepatic lesion or intrahepatic biliary duct dilatation on the spleen, adrenal glands, pancreas and left kidney. There is a 1.4 x 1.0 cm anterior right interpolar renal lesion with enhancement (previously fluid attenuation). No hydronephrosis. Calcified gallstones without evidence of acute cholecystitis. Nonaneurysmal abdominal aorta with scattered aortoiliac calcifications. Normal caliber IVC. No retroperitoneal, mesenteric or pelvic adenopathy. The stomach and small bowel are normal caliber. Normal caliber colon with scattered sigmoid diverticulosis. No diverticulitis, paracolic fat stranding or focal wall thickening. Normal appendix. Normal uterus and bladder. No pelvic mass, free fluid or free air within the abdomen. Unchanged fat-containing paraumbilical hernia. Mild multilevel spondylosis. No destructive osseous lesions. IMPRESSION: 1. Evolving right lung postradiation treatment changes. No evidence of metastatic disease within the chest. 2. Indeterminate enhancing 1.4 cm right anterior interpolar pole renal lesion. Recommend correlation with renal ultrasound for further characterization. 3. Cholelithiasis without evidence of acute cholecystitis. Electronically signed by: Steve Piña M.D. Zeeshan Rain MD IMG CT PROCEDURES [...] Once in imaging, contrast, Starting on La 04/14/18 at 1503, For 1 dose Given 04/14/2018 3:11 PM CDT 100 mL documented in this encounter Orders Medications Ordered That Adam ht Not Have Been Administered Count Last Ordered Date First Ordered Date ioversol (OPTIRAY 350) syrin ge syringe 100 mL 1 04/14/2018 documented in this encounter Care Teams Tool Machinist Relationship Specialty Start Date End Date Paula Robles NP PCP - General 05/31/17 Zeeshan Rain MD Medical Oncologist/Security Flex Utility Officer Medical Oncology 02/11/18 08/23/22 Addy Mathur MD PhD [address] [place] [address] Radiation Oncologist Radiation Oncology 03/10/18 documented as of this encounter
--- OUTSIDE RECORDS SUMMARY | 2024-08-06 17:36 | XMS_ITS | Encounter Summary ---
Author Organization [facility] Healthcare Address [address] [place] [address] Care Team Providers Care Data Entry Clerk Name Role Phone Paula Robles Eleni MEDICAID SPECIALIST Primary Care Provider + Zeeshan Rain MD Unavailable [phone] Addy reyna MD PhD Unavailable + [phone] Reason for Referral * Diagnostic Imaging (Routine) - Closed Specialty Diagnoses / Procedures Referred By Alan bangura Referred To Contact Radiology Diagnoses Malignant neoplasm of upper lobe, right bronchus or lung (HCC) Procedures CT Chest Abdomen Pelvis W Contrast Zeeshan Rain MD Phone: tel: fax: [address] [address] Referral ID Status Reason Start Date Expiration Date Visits Re quested Visits Authorized [id number] Closed 09/12/2018 03/23/2020 1 1 Reason for Visit * Diagnostic Imaging (Routine) - Closed Specialty Diagnoses / Procedures Referred By Alan bangura Referred To Contact Radiology Diagnoses Malignant neoplasm of upper lobe, right bronchus or lung (HCC) Procedures CT Chest Abdomen Pelvis W Contrast Zeeshan Rain MD Phone: tel: fax: [address] [facility] [place] [address] Referral ID Status Reason Start Date Expiration Date Visits Re quested Visits Authorized [id number] Closed 09/12/2018 03/23/2020 1 1 Encounter Details Date Type Department Care Team (Latest Contact Info) Description 12/01/2018 10:00 AM CDT - 12/01/2018 10:53 AM CDT Hospital Encounter [facility] [place] [address] Zeeshan Rain MD [address] [place] [address] Malignant neoplasm of upper lobe, right bronchus or lung (CMS/HCC) Discharge Disposition: Discharge to home or self care Social History Tobacco Use Types Packs/Day Years Used Date Smoking Tobacco: Former Smokeless Tobacco: Never Comments No Sex and Gender Information Value Date Recorded Sex Assigned at Not on file Legal Sex Female 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 Gender Identity Not on file Sexual Orientation [...] Schedule Routine, Read Routine (OP Routine) 12/01/2018 10:39 AM CDT Malignant neoplasm of upper lobe, [...] imaging, contrast, Starting on La 12/01/18 at 1028, For 1 dose Given 12/01/2018 10:28 AM CDT 125 mL documented in this encounter Orders Medications Ordered That Adam ht Not Have Been Administered Count Last Ordered Date First Ordered Date ioversol (OPTIRAY 350) syrin ge syringe 125 mL 1 12/01/2018 documented in this encounter Care Teams Data Entry Clerk Relationship Specialty Start Date End Date Paula Robles NP PCP - General 05/31/17 Zeeshan Rain MD Medical Oncologist/Wood Cabinetmaker Medical Oncology 02/11/18 08/23/22 Addy Mathur MD PhD [address] [place] [address] Radiation Oncologist Radiation Oncology 03/10/18 documented as of this encounter
--- OUTSIDE RECORDS SUMMARY | 2024-08-06 17:36 | XMS_ITS | Encounter Summary ---
Author Organization [facility] Healthcare Address [address] [place] [address] Care Team Providers Care Field Talent Qualification Specialist Name Role Phone Paula Robles MIXED CROP AND LIVESTOCK FARM WORKER Primary Care Provider + Zeeshan Rain MD Unavailable [phone] Addy reyna MD PhD Unavailable + [phone] Encounter Details Date Type Department Care Team (Late st Contact Info) Description 04/08/2018 Orders Only Radiology [address] [place] [address] Melvin Lopez MD PhD [address] [address] Social History Tobacco Use Types Packs/Day Years Used Date Smoking Tobacco: Former Smokeless Tobacco: Never Comments No Sex and Gender Information Value Date Recorded Sex Assigned at Not on file Legal Sex Female 1:02 AM FACILITIES TECHNICIAN Gender Identity Not on file Sexual Orientation Not on file documented as of this encounter Plan of Treatment Not on file documented as of this encounter Visit Diagnoses Not on filedocumented in this encounter Care Teams Field Talent Qualification Specialist Relationship Specialty Start Date End Date Paula Robles NP PCP - General 05/31/17 Zeeshan Rain MD Medical Oncologist/Optical Worker Medical Oncology 02/11/18 08/23/22 Addy Mathur MD PhD [address] [place] [address] Radiation Oncologist Radiation Oncology 03/10/18 documented as of this encounter
--- OUTSIDE RECORDS SUMMARY | 2024-08-06 17:36 | XMS_ITS | Encounter Summary ---
Author Organization [facility] Healthcare Address [address] [place] [address] Care Team Providers Care Building Tech Name Role Phone Paula Robles UTILITY WORKER ROLLER SHOP Primary Care Provider + Zeeshan Rain MD Unavailable [phone] Addy Mathur MD PhD Unavailable [phone] Encounter Details Date Type Department Care Team (Late st Contact Info) Description 09/20/2018 1:00 PM LABOR/EXCAVATOR Office Visit [facility] Radiation Oncology [address] [place] [address] Addy Mathur MD PhD [address] [place] [id number] Malignant neoplasm of upper lobe, right bronchus or lung (CMS/HCC) (Primary Dx) Discharge Disposition: Discharge to home or self care Social History Tobacco Use Types Packs/Day Years Used Date Smoking Tobacco: Former Smokeless Tobacco: Never Comments No Sex and Gender Information Value Date Recorded Sex Assigned at Not on file Legal Sex Female 1:02 AM LABOR/EXCAVATOR Gender Identity Not on file Sexual Orientation Not on file documented as of this encounter Last Filed Vital Signs Vital Sign Reading Time Taken Comments Blood Pressure 141/77 09/20/2018 1:06 PM LABOR/EXCAVATOR Pulse 90 09/20/2018 1:06 PM LABOR/EXCAVATOR Temperature 36.7 ??C (98.1 ??F) 09/20/2018 1:06 PM CS T Respiratory Rate 22 09/20/2018 1:06 PM LABOR/EXCAVATOR Oxygen Saturation - - Inhaled Oxygen Concentration - - Weight 107 kg (236 lb) 09/20/2018 1:06 PM LABOR/EXCAVATOR Height - - Body Mass Index 43.16 06/09/2018 2:13 PM CDT documented in this encounter Discharge Disposition Disposition Code Departure Means Destination Discharge to home or self care documented in this encounter Progress Notes * Addy Mathur MD PhD - 09/20/2018 1:00 PM CST Staff Physician: Addy Mathur MD PhD Referring Physician: Patient Care Team: Sandy Quintero MD as Referring Physician (Pulmonary Disease) Date of Service: 09/20/2018 RADIATION ONCOLOGY FOLLOW UP NOTE IDENTIFYING DATA: Cancer Staging Malignant neoplasm of upper lobe, right bronchus or lung (CMS/HCC) Staging form: Lung, AJCC V7 - Clinical stage from 03/10/2018: Stage IIIA (T2a, N2, M0) - Signed by Addy Mathur MD PhD on 03/10/2018 Treatment Intent: definitive Gaby Morgan is a 68 y.o. 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 She received a total of 4 cycles of chemotherapy with restaging confirming no interval development of brain metastasis. She then received prophylactic cranial radiation to 2500 cGy completed on 09/24/2017. She was last seen in our office on 03/10/2018. INTERVAL HISTORY: Since her last follow-up, Ms. Morgan continues to do well without any significant complaints. She has had a recent episode of bronchitis and is finishing up a course of antibiotics and steroids, but generally feels that she has had stable dyspnea and occasional cough. She denies any hemoptysis. She denies any dysphagia or odynophagia. She denies any headache, nausea, vomiting, vision changes, anyfocal numbness or weakness. She denies any recent memory changes or any significant fatigue. She denies any new bony pain or any pain otherwise (0/10). She has had a number of restaging studies sinceher last follow-up including CT of the chest, abdomen, and pelvis on 04/14/2018, 06/09/2018, and 09/07/2018. He these all showed stable post treatment changes in the right upper lung with no evidenceof recurrence. Indeterminate lesion was seen in the right kidney on the April 2018 scan, but follow-up renal ultrasound found this to be most consistent with a minimally complex renal cyst. MRI of the brain on 06/09/2018 showed no evidence of metastatic disease. She otherwise denies any changesto her medical history. PREVIOUS RADIATION: 1. 6000 cGy in 30 fractions to the right upper lobe, right hilum, and mediastinum with concurrent carboplatin /etoposide starting at the 2nd cycle of chemotherapy completed on 08/03/2017. 2. 2500 cGy in 10 fractions to the whole brain for prophylactic cranial irradiation completed on 09/24/2017. ALLERGIES:No Known Allergies MEDICATIONS: Reviewed REVIEW OF SYSTEM Except for the symptoms described above, the remainder of the review of systems is negative. Specifically, except as noted when asked the patient expressed no complaints relative to constitutional, fever, weight loss, eyes, ears, nose, mouth, throat, neurologic, cardiovascular, pulmonary, breasts, GI, , skin, musculoskeletal, endocrine, hematologic/lymphatic, or immunologic systems. PHYSICAL EXAMINATION: BP 141/77 Pulse 90 Temp 36.7 ??C (98.1 ??F) Resp 22 Wt 107 kg (236 lb) BMI 43.16 kg/m?? Pain Score and Location 09/20/18 1306 PainSc: 0-No pain ECOG Performance: 0 Physical Exam Constitutional: She is oriented to person, place, and time. She appears well- developed and well-nourished. No distress. Obese female HENT: Head: Normocephalic and atraumatic. Mouth/Throat: Oropharynx is clear and moist. Eyes: Pupils are equal, round, and reactive to light. EOM are normal. Neck: Normal range of motion. Neck supple. Cardiovascular: Normal rate, regular rhythm and normal heart sounds. Pulmonary/Chest: Effort normal. No respiratory distress. She has wheezes. Mild inspiratory wheezing present in all lung hernandez. Abdominal: Soft. Bowel sounds are normal. She exhibits no distension. Musculoskeletal: Normal range of motion. She exhibits no edema or tenderness. Lymphadenopathy: She has no cervical adenopathy. She has no axillary adenopathy. Neurological: She is alert and oriented to person, place, and time. No cranial nerve deficit or sensory deficit. Psychiatric: She has a normal mood and affect. Her behavior is normal. Judgment and thought contentnormal. DIAGNOSTIC REPORTS REVIEWED: Imaging: I personally reviewed the imaging and pertinent findings as per interval history. 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 She received a total of 4 cycles of chemotherapy with restaging confirming no interval development of brain metastasis. She then received prophylactic cranial radiation to 2500 cGy completed on 09/24/2017. She continues to be stable from a clinical standpointwith no clear persistent late toxicity from radiation and has no clinical or radiographic evidence of disease progression at this time. PLAN: As the patient continues to do well clinically without any significant, persistent toxicity from radiation and continues to follow very closely with Medical Oncology with surveillance imaging, we will plan to follow up with the patient on an as-needed basis. She was encouraged to contact our officeat any time if she has any questions or concerns in the future. Continue close follow up with her other healthcare providers. RAD ONC PAIN PLAN: The patient is not currently having any pain that requires changes in pain management. My total face to face time with this patient during this office visit: 15 minutes DISEASE STATUS/TOXICITY: Disease Status: Controlled New metachronous cancer?: No R/EXCAVATOR documented in this encounter Nursing Notes * Shiloh Costello RN - 09/20/2018 1:00 PM CST Currently being treated for bronchitis with abx and steroids. She will finish abx tomorrow. R/EXCAVATOR documented in this encounter Plan of Treatment Not on file documented as of this encounter Visit Diagnoses Diagnosis Malignant neoplasm of upper lobe, right bronchus or lung (HCC)- Primary documented in this encounter Care Teams Building Tech Relationship Specialty Start Date End Date Paula Robles NP PCP - General 05/31/17 Zeeshan Rain MD Medical Oncologist/Certified Medicine Aide Medical Oncology 02/11/18 08/23/22 Addy Mathur MD PhD [address] [place] [address] Radiation Oncologist Radiation Oncology 03/10/18 documented as of this encounter
--- OUTSIDE RECORDS SUMMARY | 2024-08-06 17:37 | XMS_ITS | Encounter Summary ---
Author Organization [facility] Healthcare Address [address] [place] [id number] Care Team Providers Care Drilling Machine Runner Name Role Phone Travis Paula Eleni SURVEY WORKER Primary Care Provider + Encounter Details Date Type Department Care Team (Late st Contact Info) Description 09/23/2017 Orders Only RAD ONC TREATMENTS Miscellaneous, Not In File Social History Tobacco Use Types Packs/Day Years Used Date Smoking Tobacco: Never Assessed Comments Unknown Sex and Gender Information Value Date Recorded Sex Assigned at Not on file Legal Sex Female 1:02 AM CRANE OPERATOR Gender Identity Not on file Sexual Orientation Not on file documented as of this encounter Plan of Treatment Not on file documented as of this encounter Procedures Procedure Name Priority Date/Time Associated Diagnosis Comments RAD ONC ARIA SESSION SUMMARY 09/23/2017 1:19 PM CRANE OPERATOR documented in this encounter Results * RAD ONC ARIA SESSION SUMMARY (09/23/2017 1:19 PM CRANE OPERATOR) Course Name C2_WB_2018 ARIA Course Plan Date 09/09/2017 6:49 AM ARIA Elapsed Days 10 ARIA Treatment Site BRAIN_dpv ARIA Dose Given To Date (cGy) 2,250 ARIA Session Dosage Given (cGy) 250 ARIA Plan ID WHOLE BRAIN ARIA Fractions Treated 9 ARIA Prescribed Dose Per Fraction (cGy) 250 ARIA Prescribed Total Dose (cGy) 2,500 ARIA 09/23/2017 1:19 PM CRANE OPERATOR us Not In File Miscellaneous RADIATION ONCOLOGY ORD ERABLES Final Result ARIA documented in this encounter Visit Diagnoses Not on filedocumented in this encounter Care Teams Drilling Machine Runner Relationship Specialty Start Date End Date Paula Robles NP PCP - General 05/31/17 documented as of this encounter
--- OUTSIDE RECORDS SUMMARY | 2024-08-06 17:37 | XMS_ITS | Encounter Summary ---
Author Organization [facility] Healthcare Address [address] [place] [address] Care Team Providers Care Pediatric Np Name Role Phone Paula Robles Eleni SSIS DEVELOPER Primary Care Provider + Encounter Details Date Type Department Care Team (Late st Contact Info) Description 09/15/2017 Orders Only RAD ONC TREATMENTS Miscellaneous, Not In File Social History Tobacco Use Types Packs/Day Years Used Date Smoking Tobacco: Never Assessed Comments Unknown Sex and Gender Information Value Date Recorded Sex Assigned at Not on file Legal Sex Female 1:02 AM WIRE TESTER Gender Identity Not on file Sexual Orientation Not on file documented as of this encounter Plan of Treatment Not on file documented as of this encounter Procedures Procedure Name Priority Date/Time Associated Diagnosis Comments RAD ONC ARIA SESSION SUMMARY 09/15/2017 1:13 PM WIRE TESTER documented in this encounter Results * RAD ONC ARIA SESSION SUMMARY (09/15/2017 1:13 PM WIRE TESTER) Course Name C2_WB_2018 ARIA Course Plan Date 09/09/2017 6:49 AM ARIA Elapsed Days 2 ARIA Treatment Site BRAIN_dpv ARIA Dose Given To Date (cGy) 750 ARIA Session Dosage Given (cGy) 250 ARIA Plan ID WHOLE BRAIN ARIA Fractions Treated 3 ARIA Prescribed Dose Per Fraction (cGy) 250 ARIA Prescribed Total Dose (cGy) 2,500 ARIA 09/15/2017 1:13 PM WIRE TESTER us Not In File Miscellaneous RADIATION ONCOLOGY ORD ERABLES Final Result ARIA documented in this encounter Visit Diagnoses Not on filedocumented in this encounter Care Teams Pediatric Np Relationship Specialty Start Date End Date Paula Robles NP PCP - General 05/31/17 documented as of this encounter
--- OUTSIDE RECORDS SUMMARY | 2024-08-06 17:37 | XMS_ITS | Encounter Summary ---
Author Organization [facility] Healthcare Address [address] [place] [address] Care Team Providers Care Cap And Stud Machine Operator Name Role Phone Paula Robles POURER METAL Primary Care Provider + Encounter Details Date Type Department Care Team (Latest Contact Info) Description 12/15/2017 12:15 PM CDT - 12/15/2017 11:59 PM CDT Hospital Encounter [facility] Imaging and Radiology [address] [place] [address] Zeeshan Rain MD [address] [facility] [address] [place], [place] [id number] Malignant neoplasm of upper lobe of right lung (CMS/HCC) Discharge Disposition: Discharge to home or self care Social History Tobacco Use Types Packs/Day Years Used Date Smoking Tobacco: Former Comments No Sex and Gender Information Value Date Recorded Sex Assigned at Not on file Legal Sex Female 1:02 AM WARE TESTER Gender Identity Not on file Sexual Orientation Not on file documented as of this encounter Medications at Time of Discharge furosemide (LASIX) 40 mg tablet TK 1 T PO QD 1 12/13/2017 loratadine (CLARITIN) 10 mg tablet TK 1 T PO QAM 0 12/14/2017 simvastatin (ZOCOR) 20 mg tablet TK 1 T PO HS 0 12/14/2017 LORazepam (ATIVAN) 0.5 mg tablet 1 tab po q 6-8 hours prn nausea. Try this medication third 05/24/2017 3 ondansetron (ZOFRAN) 8 mg tablet TAKE 1 TABLET EVERY 8 HOURS PRN nausea,try this medication FIRST 05/24/2017 3 predniSONE (DELTASONE) 5 mg tablet take [...] CONTRAST Schedule Routine, Read Routine (OP Routine) 12/15/2017 1:31 PM CDT Malignant neoplasm of upper lobe of right lung (CMS/HCC) documented in this encounter Results * MRI Brain W WO Contrast (12/15/2017 1:31 PM CDT) Anatomical Region Laterality Modality Head and Neck N/A Magnetic Resonan ce Impressions 12/15/2017 2:48 PM CDT NO ACUTE INTRACRANIAL PATHOLOGY NOR METASTASES. 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 Electronically signed by: Alejandra Goins M.D. Narrative 12/15/2017 2:48 PM CDT Exam: MRI BRAIN WITH AND WITHOUT CONTRAST Clinical history: Lung CA. ??Headaches. TECHNIQUE: MRI brain obtained using multiplanar multisequence images using 20 mL Dotarem: COMPARISON: MRI brain 09/08/2017 FINDINGS: The ventricles sulci and cisterns are within normal limits for age. There is redemonstration of mild degree of small punctate and patchy FLAIR T2 W hyperintensities primarily in the deep white matter with mild frontal subcortical and periventricular involvement. ??A small chronic left caudate head lacunar infarct is again seen. ??No midline shift mass effect or extra-axial collection is seen. No abnormal intracranial enhancement is seen.. No diffusion restriction noted to suggest acute infarct..No evidence for acute hemorrhage is seen on available sequences..Flow voids are seen in the basilar, cavernous internal carotid arteries, and superior sagittal sinus. The cerebellar tonsils are normally positioned. The orbits are unremarkable.. The pituitary is not enlarged.. The visualized sinuses and mastoids are clear..Calvarial marrow signal is unremarkable.. Procedure Note Alejandra Goins MD - 12/15/2017 Exam: MRI BRAIN WITH AND WITHOUT CONTRAST Clinical history: Lung CA. Headaches. TECHNIQUE: MRI brain obtained using multiplanar multisequence images using 20 mL Dotarem: COMPARISON: MRI brain 09/08/2017 FINDINGS: The ventricles sulci and cisterns are within normal limits for age. There is redemonstration of mild degree of small punctate and patchy FLAIR T2 W hyperintensities primarily in the deep white matter with mild frontal subcortical and periventricular involvement. A small chronic left caudate head lacunar infarct is again seen. No midline shift mass effect or extra-axial collection is seen. No abnormal intracranial enhancement is seen.. No diffusion restriction noted to suggest acute infarct..No evidence for acute hemorrhage is seen on available sequences..Flow voids are seen in the basilar, cavernous internal carotid arteries, and superior sagittal sinus. The cerebellar tonsils are normally positioned. The orbits are unremarkable.. The pituitary is not enlarged.. The visualized sinuses and mastoids are clear..Calvarial marrow signal is unremarkable.. IMPRESSION: NO ACUTE INTRACRANIAL PATHOLOGY NOR METASTASES. 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 Electronically signed by: Alejandra Goins M.D. Zeeshan Rain MD [facility] [place]ED[place] Fin al Result documented in this encounter Visit Diagnoses Diagnosis Malignant neoplasm of upper lobe of right lung (HCC) documented in this encounter Administered Medications Inactive Administered Medications - up to 3 most recent administrations Medication Order MAR Action Action Date Dose Rate Site gadoterate meglumine (DOTAREM) 0.5 mmol/mL injection 20 mL 20 mL, intravenous, Once in imaging, contrast, Starting on Wed12/15/17 at 1331, For 1 dose Given 12/15/2017 1:33 PM CDT 20 mL Left Hand documented in this encounter Orders Medications Ordered That Adam ht Not Have Been Administered Count Last Ordered Date First Ordered Date gadoterate meglumine (DOTARE M) 0.5 mmol/mL injection 20 mL 1 12/15/2017 documented in this encounter Care Teams Cap And Stud Machine Operator Relationship Specialty Start Date End Date Paula Robles NP PCP - General 05/31/17 documented as of this encounter
--- OUTSIDE RECORDS SUMMARY | 2024-08-06 17:37 | XMS_ITS | Encounter Summary ---
Author Organization [facility] Healthcare Address [address] [place] [address] Care Team Providers Care Event Services Manager Name Role Phone Paula Robles Eleni LEAD CASTER Primary Care Provider + Encounter Details Date Type Department Care Team (Late st Contact Info) Description 09/14/2017 Orders Only RAD ONC TREATMENTS Miscellaneous, Not In File Social History Tobacco Use Types Packs/Day Years Used Date Smoking Tobacco: Never Assessed Comments Unknown Sex and Gender Information Value Date Recorded Sex Assigned at Not on file Legal Sex Female 1:02 AM BASKET BRAIDER Gender Identity Not on file Sexual Orientation Not on file documented as of this encounter Plan of Treatment Not on file documented as of this encounter Procedures Procedure Name Priority Date/Time Associated Diagnosis Comments RAD ONC ARIA SESSION SUMMARY 09/14/2017 1:16 PM BASKET BRAIDER documented in this encounter Results * RAD ONC ARIA SESSION SUMMARY (09/14/2017 1:16 PM BASKET BRAIDER) Course Name C2_WB_2018 ARIA Course Plan Date 09/09/2017 6:49 AM ARIA Elapsed Days 1 ARIA Treatment Site BRAIN_dpv ARIA Dose Given To Date (cGy) 500 ARIA Session Dosage Given (cGy) 250 ARIA Plan ID WHOLE BRAIN ARIA Fractions Treated 2 ARIA Prescribed Dose Per Fraction (cGy) 250 ARIA Prescribed Total Dose (cGy) 2,500 ARIA 09/14/2017 1:16 PM BASKET BRAIDER us Not In File Miscellaneous RADIATION ONCOLOGY ORD ERABLES Final Result ARIA documented in this encounter Visit Diagnoses Not on filedocumented in this encounter Care Teams Event Services Manager Relationship Specialty Start Date End Date Paula Robles NP PCP - General 05/31/17 documented as of this encounter
--- OUTSIDE RECORDS SUMMARY | 2024-08-06 17:37 | XMS_ITS | Encounter Summary ---
Author Organization [facility] Healthcare Address [address] [place] [address] Care Team Providers Care Tyre Fitter Name Role Phone Paula Robles MACHINE SHOP INSTRUCTOR Primary Care Provider + Encounter Details Date Type Department Care Team (Late st Contact Info) Description 06/11/2017 10:57 AM CDT - 09/24/2017 11:59 PM ADMINISTRATIVE SERVICES SPECIALIST Hospital Encounter [facility] Addy Mathur MD PhD [address] [place] [address] Zeeshan Rain MD [address] [place] [address] Discharge Disposition: Discharge to home or self care Social History Tobacco Use Types Packs/Day Years Used Date Smoking Tobacco: Never Assessed Comments Unknown Sex and Gender Information Value Date Recorded Sex Assigned at Not on file Legal Sex Female 1:02 AM ADMINISTRATIVE SERVICES SPECIALIST Gender Identity Not on file Sexual Orientation Not on file documented as of this encounter Medications at Time of Discharge LORazepam (ATIVAN) 0.5 mg tablet 1 tab po q 6-8 hours prn nausea. Try this medication third 05/24/2017 3 ondansetron (ZOFRAN) 8 mg tablet TAKE 1 TABLET EVERY 8 HOURS PRN nausea,try this medication FIRST 05/24/2017 3 prochlorperazine (COMPAZINE) 10 mg tablet 1 tab po q 6-8 hrs prn nausea. Try this medication second 05/24/2017 3 documented as of this encounter Discharge Disposition Disposition Code Departure Means Destination Discharge to home or self care documented in this encounter Consult Notes * Miscellaneous, Not In File - 06/11/2017 5:00 AM CDT RADIATION ONCOLOGY CONSULTATION NOTE Patient: Gaby Morgan ACCOUNT: [id number] : 1950 Date: 06/11/2017 CONSULTING PHYSICIAN Addy Mathur MD, PhD REFERRING PHYSICIAN Shawn Alberto MD IDENTIFICATION Ms. Morgan is a 67-year-old female with recently diagnosed limited stage small cell lung cancer (clinical [id number]) of the right upper lobe who started her 1st cycle of carboplatin/etoposide on 05/31/2017. She presents for consideration and discussion of concurrent chemoradiation. HISTORY OF PRESENT ILLNESS Ms. Morgan came to initial oncologic attention in May 2017 with with enlarging lymphadenopathy and a right upper lobe lesion identified on surveillance CT of the chest. Specifically, the patient had initially developed pneumonia in September [address] scan at an outside facility which noted the pneumonia as well as mediastinal lymphadenopathy. Short-term followup CT was recommended and this was first done in October 2016 showing interval improvement in the right upper lobe consolidation with some continued mildly reactive appearing mediastinal and hilar lymph nodes. Additional short-term followup imaging was recommended and this was most recently performed on 04/28/2017 which showed interval increase in size of right hilar mass which now measures 4.5 x 2.9 cm as well as a 2.5 x 1.9 cm subcarinal lymph node and a right paratracheal lymph node measuring 1.2 x 1.2 cm. She then underwent a bronchoscopy at [facility] on 05/04/2017 and biopsy of the right upper lobe consistent with small cell carcinoma. This was reviewed at [facility] confirming the diagnosis. On 05/11/2017 she then underwent a PET-CT for staging which showed increased FDG uptake in the hilar mass, paratracheal lymph node and subcarinal lymph node. On 05/24/2017 she then met with Medical Oncology at [facility] and was recommended chemotherapy with carboplatin/etoposide after complete staging. On 05/26/2017 she underwent MRI of the brain, which showed no evidence of any metastatic disease. On 05/31/2017 she received her 1st cycle of carboplatin/etoposide. On 06/09/2017 she then met with Dr. Alberto at [facility] for discussion and consideration of thoracic radiation therapy. However as the patient lives closer to our facility, she was then referred to our office for discussion and consideration of radiation therapy. Currently, the patient is generally doing well without any significant complaints. She states that she feels that she has tolerated chemotherapy relatively well thus far with no significant nausea though she does report some fatigue. She denies any vomiting or any headache. She denies any significant shortness of breath and denies any consistent cough or hemoptysis. She denies any dysphagia or odynophagia. She reports mild pain which she rates a 2/10 located under her right breast and radiates to her mid back that has been present for a few months. It has not changed considerably since starting chemotherapy. She reports an approximately 40 pounds weight loss over the past few months but states that this was intentional weight loss. She does not have an ICD or pacemaker in place. PREVIOUS RADIATION None. PAST MEDICAL HISTORY COPD, asthma, history of pneumonia, hyperlipidemia. PAST SURGICAL HISTORY section x2. ALLERGIES NKDA. MEDICATION 1. Albuterol. 2. Fluticasone. 3. Propionate. 4. Fluticasone/salmeterol. 5. Furosemide. 6. Ipratropium/albuterol sulfate. 7. Loratadine. 8. Singular. 9. Multivitamin. 10. Simvastatin. FAMILY HISTORY She reports a paternal grandfather with a history of colon cancer. Otherwise, she denies any significant family history of malignancy. SOCIAL HISTORY The patient is retired and used to work for the [employer]. She reports a 40- to 80 pack year history of smoking and quit in 2008. She denies any history of alcohol use. GYNECOLOGIC HISTORY G2, P2. REVIEW OF SYSTEMS Constitutional: Denies unplanned weight loss. Denies unplanned weight gain. Denies fever. No chills. No night sweats. Denies fatigue. HEENT: No change in vision. No change in hearing. No ear pain. No nasal congestion. No sore throat. Respiratory: Per HPI. Cardiovascular: Denies chest pain. No palpitations. No syncope. No orthopnea. No paroxysmal nocturnal dyspnea. No claudication. Denies cold extremities. No edema. Gastrointestinal: No complaints of abdominal pain. No decreased appetite. No nausea. No vomiting present. No constipation. No diarrhea present. Genitourinary: Denies dysuria. No increased urine frequency. No urinary inconsistencies. No hematuria. No flank pain. No vulvovaginal complaint. No vaginal bleeding. No pelvic pain. No hematuria. Metabolic/Endocrine: Denies cold intolerance. No heat intolerance. No polyphagia. No polyuria. No polydipsia. No generalized weakness. Neurological: No headache. Denies dizziness. No seizures. Denies mental status changes. No changes in gait. Denies speech problems. No problem with swallowing. No tremors present. Psychiatric: No depression. No anxiety. Not suicidal ideation present. Denies hallucinations. Skin: No ulcers. No lesions. No wounds. No rash. No itching. No erythema. Musculoskeletal: No myalgia. No joint pain. No joint redness. No joint swelling. No joint warmth. No muscle weakness. Hematologic: No bleeding. No bruising. No petechiae. No hematoma present Lymphatic/Immunologic: No urticaria. No hives. No lymph node swelling. No seasonal allergies. PHYSICAL EXAM Performance Status: 1. Vitals: Weight 210 pounds, blood pressure 130/73, heart rate 78, respiratory rate 18, temperature 97.1 degrees Fahrenheit, oxygen saturation 96% on room air. General: Well-developed female in no acute distress. Pleasant and cooperative. HEENT: Atraumatic, normocephalic. PERRLA. EOMI. Moist oral mucosa. Neck: Supple with no lymphadenopathy. Lymph Nodes: No cervical, supraclavicular, or axillary lymphadenopathy palpated. Cardiovascular: Regular rate and rhythm. No murmurs, rubs, or gallops. Lungs: Diminished breath sounds throughout. Otherwise clear to auscultation. Abdomen: Soft, nontender, nondistended. Extremities: No edema. No cyanosis. Musculoskeletal: No spinal point tenderness. Normal range of motion. Neurologic: Alert, oriented x3. Cranial nerves II-XII appear intact. Strength 5/5 bilateral upper and lower extremities. Sensation appears intact. PATHOLOGY Bronchoscopy at an outside hospital per review at [facility] (05/04/2017, reviewed on 05/21/2017): Right upper lobe bronchoscopic biopsy brushings and bronchial washings consistent with small-cell carcinoma. IMAGING Please refer to HPI. ASSESSMENT Ms. 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 She presents for consideration and discussion of thoracic radiation therapy concurrent with chemotherapy. We reviewed and discussed the overall workup and management of patients with small cell lung cancer, particularly those with limited stage small cell lung cancer. We reviewed again with the patient the role of radiation therapy to her primary and kelsie disease and data showing improved overall survival with the addition of thoracic radiation to chemotherapy and the additional improvement with early initiation of radiation therapy in the overall course of chemotherapy. As done by Dr. Alberto, we also reviewed the various dose fractionation options for concurrent chemoradiation with b.i.d. versus daily treatments and the patient reaffirmed that she was most interested in pursuing the daily fractionation schedule. Therefore we anticipate initiating her course of thoracic radiation with 30 fractions beginning at the start of her 2nd cycle of carboplatin/etoposide on 06/21/2017 for improved locoregional control as well as improved overall survival over chemotherapy alone. PLAN 1. I recommend concurrent chemoradiation to the right upper lobe and involved lymph nodes with adequate margin to 60 Gy in 30 fractions timed with initiation of her 2nd cycle of carboplatin/etoposide. 2. I discussed the rationale, benefit, and risks of radiation therapy to the right upper lobe, mediastinum and hilum with the patient and her . Specifically, we discussed the short and chcf risks of radiation therapy. The short term risks include, but are not limited to, odynophagia, dysphagia, fatigue and dermatitis. The chcf risks include, but are not limited to, radiation pneumonitis, esophageal stricture or perforation, and an increased risk of cardiovascular disease. The patient and her asked appropriate questions and expressed understanding. Informed consent was signed. 3. CT simulation was initially anticipated to be performed today, however due to knitting machine mechanic this has been rescheduled to June 14. We anticipate initiating her therapy on June 21 on the same date as she begins her 2nd cycle of chemotherapy. The patient and her family know they can contact our office at any time with any questions or concerns. Thank you for allowing me to participate in the care of this patient. Electronically Authenticated and Edited by: Addy Mathur MD On 06/14/2017 08:53 AM ADMINISTRATIVE SERVICES SPECIALIST Addy Mathur M.D. FILOMENAV/ams TD: 06/12/2017 09:27 CC: MD Sandy Piña M.D. Danielle Bogue, ADNP Michael Roach, D.O. NISTRATIVE SERVICES SPECIALIST documented in this encounter Plan of Treatment Not on file documented as of this encounter Procedures Procedure Name Priority Date/Time Associated Diagnosis Comments GENERAL RADIOLOGY REPORT 09/24/2017 GENERAL RADIOLOGY REPORT 09/02/2017 documented in this encounter Results * GENERAL RADIOLOGY REPORT (09/24/2017) Anatomical Region Laterality Modality Radiographic Rosalia ging Narrative 09/24/2017 Ordered by an unspecified provider. us Historical Provider IMG XR PROCEDURES Final R esult * GENERAL RADIOLOGY REPORT (09/02/2017) Anatomical Region Laterality Modality Radiographic Rosalia ging Narrative 09/02/2017 Ordered by an unspecified provider. us Historical Provider IMG XR PROCEDURES Final R esult documented in this encounter Visit Diagnoses Not on filedocumented in this encounter Care Teams Tyre Fitter Relationship Specialty Start Date End Date Paula Robles NP PCP - General 05/31/17 documented as of this encounter
--- OUTSIDE RECORDS SUMMARY | 2024-08-06 17:37 | XMS_ITS | Encounter Summary ---
Author Organization [facility] Healthcare Address [address] [place] [address] Care Team Providers Care Director Decision Support Name Role Phone Paula Robles Eleni RESTAURANT BUSSER Primary Care Provider + Encounter Details Date Type Department Care Team (Late st Contact Info) Description 09/17/2017 Orders Only RAD ONC TREATMENTS Miscellaneous, Not In File Social History Tobacco Use Types Packs/Day Years Used Date Smoking Tobacco: Never Assessed Comments Unknown Sex and Gender Information Value Date Recorded Sex Assigned at Not on file Legal Sex Female 1:02 AM AUTOMOTIVE MAINTENANCE TECHNICIAN Gender Identity Not on file Sexual Orientation Not on file documented as of this encounter Plan of Treatment Not on file documented as of this encounter Procedures Procedure Name Priority Date/Time Associated Diagnosis Comments RAD ONC ARIA SESSION SUMMARY 09/17/2017 1:15 PM AUTOMOTIVE MAINTENANCE TECHNICIAN documented in this encounter Results * RAD ONC ARIA SESSION SUMMARY (09/17/2017 1:15 PM AUTOMOTIVE MAINTENANCE TECHNICIAN) Course Name C2_WB_2018 ARIA Course Plan Date 09/09/2017 6:49 AM ARIA Elapsed Days 4 ARIA Treatment Site BRAIN_dpv ARIA Dose Given To Date (cGy) 1,250 ARIA Session Dosage Given (cGy) 250 ARIA Plan ID WHOLE BRAIN ARIA Fractions Treated 5 ARIA Prescribed Dose Per Fraction (cGy) 250 ARIA Prescribed Total Dose (cGy) 2,500 ARIA 09/17/2017 1:15 PM AUTOMOTIVE MAINTENANCE TECHNICIAN us Not In File Miscellaneous RADIATION ONCOLOGY ORD ERABLES Final Result ARIA documented in this encounter Visit Diagnoses Not on filedocumented in this encounter Care Teams Director Decision Support Relationship Specialty Start Date End Date Paula Robles NP PCP - General 05/31/17 documented as of this encounter
--- OUTSIDE RECORDS SUMMARY | 2024-08-06 17:37 | XMS_ITS | Encounter Summary ---
Author Organization [facility] Healthcare Address [address] [place] [address] Care Team Providers Care Video Poker Floorman Name Role Phone Travsi Paula Eleni FARM EQUIPMENT ASSEMBLER Primary Care Provider + Encounter Details Date Type Department Care Team (Late st Contact Info) Description 09/16/2017 Orders Only RAD ONC TREATMENTS Miscellaneous, Not In File Social History Tobacco Use Types Packs/Day Years Used Date Smoking Tobacco: Never Assessed Comments Unknown Sex and Gender Information Value Date Recorded Sex Assigned at Not on file Legal Sex Female 1:02 AM PERFORMANCE IMPROVEMENT DIRECTOR Gender Identity Not on file Sexual Orientation Not on file documented as of this encounter Plan of Treatment Not on file documented as of this encounter Procedures Procedure Name Priority Date/Time Associated Diagnosis Comments RAD ONC ARIA SESSION SUMMARY 09/16/2017 1:15 PM PERFORMANCE IMPROVEMENT DIRECTOR documented in this encounter Results * RAD ONC ARIA SESSION SUMMARY (09/16/2017 1:15 PM PERFORMANCE IMPROVEMENT DIRECTOR) Course Name [id number]_WB_2018 ARIA Course Plan Date 09/09/2017 6:49 AM ARIA Elapsed Days 3 ARIA Treatment Site BRAIN_dpv ARIA Dose Given To Date (cGy) 1,000 ARIA Session Dosage Given (cGy) 250 ARIA Plan ID WHOLE BRAIN ARIA Fractions Treated 4 ARIA Prescribed Dose Per Fraction (cGy) 250 ARIA Prescribed Total Dose (cGy) 2,500 ARIA 09/16/2017 1:15 PM PERFORMANCE IMPROVEMENT DIRECTOR us Not In File Miscellaneous RADIATION ONCOLOGY ORD ERABLES Final Result ARIA documented in this encounter Visit Diagnoses Not on filedocumented in this encounter Care Teams Video Poker Floorman Relationship Specialty Start Date End Date Paula Robles NP PCP - General 05/31/17 documented as of this encounter
--- OUTSIDE RECORDS SUMMARY | 2024-08-06 17:37 | XMS_ITS | Encounter Summary ---
Author Organization [facility] Healthcare Address [address] [place] [address] Care Team Providers Care Home Manager Name Role Phone Paula Robles Eleni SEO SPECIALIST Primary Care Provider + Encounter Details Date Type Department Care Team (Late st Contact Info) Description 07/29/2017 Orders Only RAD ONC TREATMENTS Miscellaneous, Not In File Social History Tobacco Use Types Packs/Day Years Used Date Smoking Tobacco: Never Assessed Comments Unknown Sex and Gender Information Value Date Recorded Sex Assigned at Not on file Legal Sex Female 1:02 AM TOLL GATE KEEPER Gender Identity Not on file Sexual Orientation Not on file documented as of this encounter Plan of Treatment Not on file documented as of this encounter Procedures Procedure Name Priority Date/Time Associated Diagnosis Comments RAD ONC ARIA SESSION SUMMARY 07/29/2017 2:14 PM TOLL GATE KEEPER documented in this encounter Results * RAD ONC ARIA SESSION SUMMARY (07/29/2017 2:14 PM TOLL GATE KEEPER) Course Name C1 RT LUNG 2017 ARIA Course Plan Date 06/14/2017 1:33 PM ARIA Elapsed Days 38 ARIA Treatment Site PTV lung ARIA Dose Given To Date (cGy) 5,600 ARIA Session Dosage Given (cGy) 200 ARIA Plan ID R LUNG_REPLA N ARIA Fractions Treated 15 ARIA Prescribed Dose Per Fraction (cGy) 200 ARIA Prescribed Total Dose (cGy) 3,400 ARIA 07/29/2017 2:14 PM TOLL GATE KEEPER us Not In File Miscellaneous RADIATION ONCOLOGY ORD ERABLES Final Result ARIA documented in this encounter Visit Diagnoses Not on filedocumented in this encounter Care Teams Home Manager Relationship Specialty Start Date End Date Paula Robles NP PCP - General 05/31/17 documented as of this encounter
--- OUTSIDE RECORDS SUMMARY | 2024-08-06 17:37 | XMS_ITS | Encounter Summary ---
Author Organization [facility] Address [address] [place] [address] Phone Care Team Providers Care Warning Coordination Meteorologist Name Role Phone Paula Robles NP Primary Care Provider + Zeeshan Rain MD Unavailable [phone] Encounter Details Date Type Department Care Team (Late st Contact Info) Description 02/14/2018 12:30 PM CDT Lab [facility] Oncology [address] [facility] 7th [place] [address] [place] [address] Cancer of bronchus of right upper lobe (CMS/HCC) Social History Tobacco Use Types Packs/Day Years Used Date Smoking Tobacco: Former Smokeless Tobacco: Never Comments No Sex and Gender Information Value Date Recorded Sex Assigned at Not on file Legal Sex Female 1:02 AM TAPPER BALANCE WHEEL SCREW HOLE Gender Identity Not on file Sexual Orientation Not on file documented as of this encounter Plan of Treatment Not on file documented as of this encounter Procedures Procedure Name Priority Date/Time Associated Diagnosis Comments DIFFERENTIAL AUTO Routine 02/14/2018 12: 42 PM CDT Cancer of bronchus of right upper lobe (CMS/HCC) CBC WITH AUTO DIFFERENTIAL Routine 02/14/2018 12:42 PM CDT Cancer of bronchus of right upper lobe (CMS/HCC) COMPREHENSIVE METABOLIC PANEL STAT 02/14/2018 12:35 PM CDT Cancer of bronchus of right upper lobe (CMS/HCC) documented in this encounter Results * Differential, auto (02/14/2018 12:42 PM CDT) Neutrophil abs 3.1 1.8 - 6.6 K/cumm [facility] Comment:Testing performed by : [facility], [address] [place] [phone] Lymphocyte abs 1.4 1.2 - 3.3 K/cumm [facility] Comment:Testing performed by : [facility], [address] [place] [phone] Monocyte abs 0.5 0.2 - 1.2 K/cumm [facility] Comment:Testing performed by : [facility], [address] [place] [phone] Eosinophil abs 0.1 0.0 - 0.5 K/cumm [facility] Comment:Testing performed by : [facility], [address] [place] [phone] Basophil abs 0.1 0.0 - 0.2 K/cumm [facility] Comment:Testing performed by : [facility], [address] [place] [phone] Neutrophil pct 59.9 % [facility] Comment: Interpretive Data Percent cell count reference ranges are not reported, since discordance with absolute values may lead to misinterpretation of CBC data. Current Interpretive Data was last revised on 2017. Testing performed by: [facility], [address] [place] [phone] Lymphocyte pct 27.7 % [facility] Comment: Interpretive Data Percent cell count reference ranges are not reported, since discordance with absolute values may lead to misinterpretation of CBC data. Current Interpretive Data was last revised on 2017. Testing performed by: [facility], [address] [place] [phone] Monocyte pct 9.1 % [facility] Comment:Testing performed by : [facility], [address] [place] [phone] Eosinophil pct 2.1 % [facility] Comment:Testing performed by : [facility], [address] [place] [phone] Basophil pct 1.2 % [facility] Comment:Testing performed by : [facility], [address] [place] [address] Blood specimen (specimen) 02/14/2018 12:42 PM CDT 02/14/2018 12:43 PM CDT Narrative [facility] - 02/14/2018 12:55 PM CDT us Zeeshan Rain MD LAB BLOOD ORDERABLES F inal Result [facility] [place] [address] * (ABNORMAL) CBC with auto differential (02/14/2018 12:42 PM CDT) WBC 5.2 3.8 - 9.8 K/cumm [facility] Comment:Testing performed by : [facility], [address] [place] [address] RBC 4.10 3.90 - 5.00 M/cumm [facility] Comment:Testing performed by : [place] [address] Hgb 13.0 12.1 - 15.1 g/dL [facility] Comment:Testing performed by : [place] [address] Hct 38.7 36.1 - 44.3 % [facility] Comment:Testing performed by : [facility], [address] [place] [address] MCV 94.6 80.0 - 97.6 fL [facility] Comment:Testing performed by : [place] [address] MCH 31.8 26.7 - 33.7 pg [facility] Comment:Testing performed by : [place] [phone] MCHC 33.6 32.7 - 35.5 g/dL [facility] Comment:Testing performed by : [facility], [address], [place] [phone] RDW CV 14.9(H) 11.8 - 14.6 % [facility] Comment:Testing performed by : [facility], [address] [place] [phone] Plt 298 140 - 440 K/cumm [facility] Comment:Testing performed by : [facility], [address] [place] [phone] MPV 7.0 6.8 - 10.4 fL [facility] Comment:Testing performed by : [facility], [address] [place] [phone] NRBC abs 0.01 0.00 - 0.01 K/cumm [facility] Comment:Testing performed by : [facility], [address] [place] [phone] Blood specimen (specimen) 02/14/2018 12:42 PM CDT 02/14/2018 12:43 PM CDT Narrative [facility] - 02/14/2018 12:55 PM CDT Zeeshan Rain MD LAB BLOOD ORDERABLES F inal Result [facility] Department [place] [address] * Comprehensive metabolic panel (02/14/2018 12:35 PM CDT) Sodium 142 135 - 145 mmol/L [facility] Potassium, pl 4.1 3.3 - 4.9 mmol/L [facility] Chloride 103 97 - 110 mmol/L [facility] CO2 31 22 - 32 mmol/L [facility] Anion gap 8 2 - 15 mmol/L [facility] BUN 9 8 - 25 mg/dL [facility] Creatinine 0.82 0.60 - 1.10 mg/dL [facility] Glucose 101 70 - 199 mg/dL [facility] Comment: Interpretive Data Fasting glucose >/= [...] 2017. Calcium 9.5 8.5 - 10.3 mg/dL [facility] Bilirubin, total 0.4 0.1 - 1.2 mg/dL [facility] Protein, pl 7.4 6.5 - 8.5 g/dL [facility] Albumin 3.9 3.5 - 5.0 g/dL [facility] Alk phos 84 40 - 130 Units/L [facility] ALT 18 7 - 45 Units/L [facility] AST 16 10 - 45 Units/L [facility] Blood specimen (specimen) 02/14/2018 12:35 PM CDT 02/14/2018 12:53 PM CDT Narrative [facility] - 02/14/2018 1:25 PM CDT us Zeeshan Rain MD LAB BLOOD ORDERABLES F inal Result [facility] Department [place] [address] documented in this encounter Visit Diagnoses Diagnosis Cancer of bronchus of right upper lobe (HCC) documented in this encounter Care Teams Warning Coordination Meteorologist Relationship Specialty Start Date End Date Paula Robles NP PCP - General 05/31/17 Zeeshan Rain MD Medical Oncologist/Asphalt Paving Machine Operator Medical Oncology 02/11/18 08/23/22 documented as of this encounter
--- OUTSIDE RECORDS SUMMARY | 2024-08-06 17:37 | XMS_ITS | Encounter Summary ---
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 Gender Identity Not on file Sexual Orientation Not on file documented as of this encounter Plan of Treatment Not on file documented as of this encounter Procedures Procedure Name Priority Date/Time Associated Diagnosis Comments RAD ONC ARIA SESSION SUMMARY 07/30/2017 1:57 PM MACHINE STAPLER documented in this encounter Results * RAD ONC ARIA SESSION SUMMARY (07/30/2017 1:57 PM MACHINE STAPLER) Course Name C1 RT LUNG 2017 ARIA Course Plan Date 06/14/2017 1:33 PM ARIA Elapsed Days 39 ARIA Treatment Site PTV lung ARIA Dose Given To Date (cGy) 5,800 ARIA Session Dosage Given (cGy) 200 ARIA Plan ID R LUNG_REPLA N ARIA Fractions Treated 16 ARIA Prescribed Dose Per Fraction (cGy) 200 ARIA Prescribed Total Dose (cGy) 3,400 ARIA 07/30/2017 1:57 PM MACHINE STAPLER us Not In File Miscellaneous RADIATION ONCOLOGY ORD ERABLES Final Result ARIA documented in this encounter Visit Diagnoses Not on filedocumented in this encounter Care Teams Elementary Assistant Teacher Relationship Specialty Start Date End Date Paula Robles NP PCP - General 05/31/17 documented as of this encounter
--- OUTSIDE RECORDS SUMMARY | 2024-08-06 17:37 | XMS_ITS | Encounter Summary ---
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 Gender Identity Not on file Sexual Orientation Not on file documented as of this encounter Plan of Treatment Not on file documented as of this encounter Procedures Procedure Name Priority Date/Time Associated Diagnosis Comments RAD ONC ARIA SESSION SUMMARY 09/21/2017 1:13 PM MANAGER DATA WAREHOUSE documented in this encounter Results * RAD ONC ARIA SESSION SUMMARY (09/21/2017 1:13 PM MANAGER DATA WAREHOUSE) Course Name C2_WB_2018 ARIA Course Plan Date 09/09/2017 6:49 AM ARIA Elapsed Days 8 ARIA Treatment Site BRAIN_dpv ARIA Dose Given To Date (cGy) 1,750 ARIA Session Dosage Given (cGy) 250 ARIA Plan ID WHOLE BRAIN ARIA Fractions Treated 7 ARIA Prescribed Dose Per Fraction (cGy) 250 ARIA Prescribed Total Dose (cGy) 2,500 ARIA 09/21/2017 1:13 PM MANAGER DATA WAREHOUSE us Not In File Miscellaneous RADIATION ONCOLOGY ORD ERABLES Final Result ARIA documented in this encounter Visit Diagnoses Not on filedocumented in this encounter Care Teams Hand Bender Relationship Specialty Start Date End Date Paula Robles NP PCP - General 05/31/17 documented as of this encounter
--- OUTSIDE RECORDS SUMMARY | 2024-08-06 17:37 | XMS_ITS | Encounter Summary ---
Author Organization [facility] Address [address] [place] [address] Phone Care Team Providers Care Yarn Tester Name Role Phone Paula Robles LIGHTNING ROD ERECTOR Primary Care Provider + Reason for Visit * Reason Onset Date Comments Med Refill 01/10/2018 Encounter Details Date Type Department Care Team (Late st Contact Info) Description 01/10/2018 Documentation [facility] Oncology [address] [facility] 7th [place] [address] [place] [address] Zeeshan Rain MD [address] [place] [address] Med Refill Social History Tobacco Use Types Packs/Day Years Used Date Smoking Tobacco: Former Comments No Sex and Gender Information Value Date Recorded Sex Assigned at Not on file 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 60 tablet 01/10/2018 02/14/2018 documented in this encounter Nursing Notes * Yamile Virk, RN - 01/10/2018 12:12 PM CDT Patient Gaby Morgan 1950 calling. Ms. Gaby Morgan is a 67-year-old female who recently completed concurrent chemoradiation followed by prophylactic cranial radiation for T2N2 small cell lung cancer. She is asking for refills of Potassium and Prednisone. She is wheezy, out of breath and has sinus drainage. She has been taking Mucinex without relief. Per Dr. Rain ok to refill the potassium but he would like her to be evaluated at primary's office for congestions and wheezing. Called patient back to notify her I would send in the potassium script and to call primary. documented in this encounter Plan of Treatment Not on file documented as of this encounter Visit Diagnoses Not on filedocumented in this encounter Care Teams Yarn Tester Relationship Specialty Start Date End Date Paula Robles NP PCP - General 05/31/17 documented as of this encounter
--- OUTSIDE RECORDS SUMMARY | 2024-08-06 17:37 | XMS_ITS | Encounter Summary ---
Author Organization [facility] Address [address] [place] [address] Phone Care Team Providers Care Compressor Station Engineer Chief Name Role Phone Travis, Paula Eleni CYLINDER STEAMER Primary Care Provider + Encounter Details Date Type Department Care Team (Late st Contact Info) Description 01/06/2018 Orders Only [facility] Oncology 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 Comment:Testing performed by : [facility], [facility] [phone] RBC 4.10 3.90 - 5.00 M/cumm [facility] Comment:Testing performed by : [facility], [address] [place] [address] Hgb 13.0 12.1 - 15.1 g/dL [facility] Comment:Testing performed by : [facility], [address] [place] [address] Hct 38.7 36.1 - 44.3 % [facility] Comment:Testing performed by : [facility], [address] [place] [address] MCV 94.6 80.0 - 97.6 fL [facility] Comment:Testing performed by : [facility], [address] [place] [address] MCH 31.8 26.7 - 33.7 pg [facility] Comment:Testing performed by : [facility], [address] [place] [address] MCHC 33.6 32.7 - 35.5 g/dL [facility] Comment:Testing performed by : [place] [address] RDW CV 14.9(H) 11.8 - 14.6 % [facility] Comment:Testing performed by : [place] [address] Plt 298 140 - 440 K/cumm [facility] Comment:Testing performed by : [place] [address] MPV 7.0 6.8 - 10.4 fL [facility] Comment:Testing performed by : [place] [address] NRBC abs 0.01 0.00 - 0.01 K/cumm [facility] Comment:Testing performed by : [place] [address] Blood specimen (specimen) 02/14/2018 12:42 PM CDT 02/14/2018 12:43 PM CDT Narrative [facility] - 02/14/2018 12:55 PM CDT us Zeeshan Rain MD LAB BLOOD ORDERABLES F inal Result [facility] Department [place] [address] * Comprehensive metabolic panel (02/14/2018 12:35 PM CDT) Sodium 142 135 - 145 mmol/L [facility] Potassium, pl 4.1 3.3 - 4.9 mmol/L [facility] Chloride 103 97 - 110 mmol/L [facility] CO2 31 22 - 32 mmol/L [facility] Anion gap 8 2 - 15 mmol/L [facility] BUN 9 8 - 25 mg/dL [facility] Creatinine 0.82 0.60 - 1.10 mg/dL [facility] Glucose 101 70 - 199 mg/dL [facility] g/dL [facility] Alk phos 84 40 - 130 Units/L [facility] ALT 18 7 - 45 Units/L [facility] AST 16 10 - 45 Units/L [facility] Blood specimen (specimen) 02/14/2018 12:35 PM CDT 02/14/2018 12:53 PM CDT Narrative [facility] - 02/14/2018 1:25 PM CDT Zeeshan Rain MD LAB BLOOD ORDERABLES F inal Result [facility] Department [place] [address] documented in this encounter Visit Diagnoses Diagnosis Cancer of bronchus of right upper lobe (HCC)- Primary Cancer of bronchus of right upper lobe (HCC) documented in this encounter Care Teams Compressor Station Engineer Chief Relationship Specialty Start Date End Date Paula Robles NP PCP - General 05/31/17 documented as of this encounter
--- OUTSIDE RECORDS SUMMARY | 2024-08-06 17:37 | XMS_ITS | Encounter Summary ---
Author Organization [facility] Healthcare Address [address] [place] [address] Care Team Providers Care Cell Tester Name Role Phone Paula Robles Eleni REPAIRER TYPEWRITER Primary Care Provider + Encounter Details Date Type Department Care Team (Latest Contact Info) Description 10/21/2017 12:54 PM CDT - 10/21/2017 11:59 PM T Hospital Encounter [facility]IM [phone] Carl Rain MD [address] [facility] [address] [place], [place] [id number] Discharge Disposition: Discharge to home or self care Social History Tobacco Use Types Packs/Day Years Used Date Smoking Tobacco: Never Assessed Comments Unknown Sex and Gender Information Value Date Recorded Sex Assigned at Not on file 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 FINAL REPORT ACC# ??Date Time ??Exam [id number] Oct 21, 2017 13:41:[address] Chest with contrast [id number] Oct 21, 2017 13:41:[address] Abdomen with contrast EXAMINATION: ??Computed tomography of the chest and abdomen with intravenous contrast HISTORY: Small cell carcinoma of the lung, diagnosed April 2017 treated with chemoradiation. TECHNIQUE: ??Transaxial computed tomographic images of the chest and abdomen were obtained with 125 mL intravenous contrast according to the standard protocol. COMPARISON: Compare study 08/26/2017. FINDINGS: ?? Chest: Images obtained at mediastinal window show no supraclavicular, axillary, superior mediastinal or left hilar adenopathy. There is a confluent mass in the right hilus, best seen today at table position 212 where it measures 21 x 10 mm. On the previous examination at table position -264, this node measured 27 x 11 mm. There is extensive right upper lobe atelectasis is slightly more consolidated compared with the prior study. There is overall volume loss in the right hemithorax that is unchanged. There is no pleural or pericardial effusion. The aorta is moderately calcified in the region of the arch, but there is normal-appearing flow in the proximal segments of both common carotid and both subclavian arteries. The pulmonary arteries are slightly enlarged, unchanged from the prior study. There is no central pulmonary embolism. Images obtained at pulmonary parenchymal windows show increased septal line thickening in the right upper lobe, likely related to lymphatic or venous obstruction in this region. The peripheral consolidation that was present on the prior study has considerably improved in the interval. There is an unchanged peripheral 3 mm nodule in the left upper lobe. There are no new pulmonary nodules and no additional infiltrates. Abdomen: Images of the abdomen show no focal hepatic parenchymal abnormalities. There are multiple calcific gallstones in the dependent portion of the fundus, but no evidence of wall thickening or pericholecystic stranding. The intra and extra hepatic biliary ducts are otherwise normal. The stomach and proximal duodenum are normal. The pancreas is normal. No splenic abnormalities are present. There is no adenopathy in the gastrohepatic ligament. Both adrenal glands are normal. Both kidneys are normal with no evidence of solid renal mass, hydronephrosis, renal or ureteral calculus. There is a small simple cyst in the upper pole of the right kidney. There is no periaortic or pericaval adenopathy. There is moderate atherosclerotic calcification of the infrarenal abdominal aorta and proximal common iliac arteries, but no evidence of aneurysm. The abdominal segments of small and large intestine are normal in appearance. Images obtained at bone window show no focal lytic or blastic lesion. 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 There is no loss of vertebral height at any visible level. The sternum is normal. IMPRESSION: ??Evolving posttreatment changes in the right upper lobe. No evidence of metastatic disease in the chest or abdomen. Electronically signed by: Vish Lozano M.D. Requested By: CARL RAIN M.D. Dictated By: ?? VISH LOZANO M.D. ??on Oct 21 2017 ??2:30P This document has been electronically signed by: VISH LOZANO M.D. on Oct 21 2017 ??2:30P VISH LOZANO M.D. FINAL REPORT Attending: ??RENETTA, ??CARL Requesting: ??RENETTA, ??CARL Requesting Fax: ?? Attending Fax: ?? Attending ID: ??[id number] Requesting ID: ??[id number] Report To 1 ID: ??[id number] ? Report To 1 Name: ??, ?? Report To 1 FAX: ?? NextGen Order #: ?? Procedure Note Miscellaneous, Not In File - 10/21/2017 VISH LOZANO M.D. FINAL REPORT ACC# Date Time Exam [id number] Oct 21, 2017 13:41:[id number] Chest with contrast [id number] Oct 21, 2017 13:41:[id number] Abdomen with contrast EXAMINATION: Computed tomography of the chest and abdomen with intravenous contrast HISTORY: Small cell carcinoma of the lung, diagnosed April 2017 treated with chemoradiation. TECHNIQUE: Transaxial computed tomographic images of the chest and abdomen were obtained with 125 mL intravenous contrast according to the standard protocol. COMPARISON: Compare study 08/26/2017. FINDINGS: Chest: Images obtained at mediastinal window show no supraclavicular, axillary, superior mediastinal or left hilar adenopathy. There is a confluent mass in the right hilus, best seen today at table position 212 where it measures 21 x 10 mm. On the previous examination at table position -264, this node measured 27 x 11 mm. There is extensive right upper lobe atelectasis is slightly more consolidated compared with the prior study. There is overall volume loss in the right hemithorax that is unchanged. There is no pleural or pericardial effusion. The aorta is moderately calcified in the region of the arch, but there is normal-appearing flow in the proximal segments of both common carotid and both subclavian arteries. The pulmonary arteries are slightly enlarged, unchanged from the prior study. There is no central pulmonary embolism. Images obtained at pulmonary parenchymal windows show increased septal line thickening in the right upper lobe, likely related to lymphatic or venous obstruction in this region. The peripheral consolidation that was present on the prior study has considerably improved in the interval. There is an unchanged peripheral 3 mm nodule in the left upper lobe. There are no new pulmonary nodules and no additional infiltrates. Abdomen: Images of the abdomen show no focal hepatic parenchymal abnormalities. There are multiple calcific gallstones in the dependent portion of the fundus, but no evidence of wall thickening or pericholecystic stranding. The intra and extra hepatic biliary ducts are otherwise normal. The stomach and proximal duodenum are normal. The pancreas is normal. No splenic abnormalities are present. There is no adenopathy in the gastrohepatic ligament. Both adrenal glands are normal. Both kidneys are normal with no evidence of solid renal mass, hydronephrosis, renal or ureteral calculus. There is a small simple cyst in the upper pole of the right kidney. There is no periaortic or pericaval adenopathy. There is moderate atherosclerotic calcification of the infrarenal abdominal aorta and proximal common iliac arteries, but no evidence of aneurysm. The abdominal segments of small and large intestine are normal in appearance. Images obtained at bone window show no focal lytic or blastic lesion. 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 There is no loss of vertebral height at any visible level. The sternum is normal. IMPRESSION: Evolving posttreatment changes in the right upper lobe. No evidence of metastatic disease in the chest or abdomen. Electronically signed by: Vish Lozano M.D. Requested By: CARL RAIN M.D. Dictated By: VISH LOZANO M.D. on Oct 21 2017 2:30P This document has been electronically signed by: VISH LOZANO M.D. on Oct 21 2017 2:30P VISH LOZANO M.D. FINAL REPORT Attending: CARL RAIN Requesting: CARL RAIN Requesting Fax: Attending Fax: Attending ID: [id number] Requesting ID: [id number] Report To 1 ID: [id number] Report To 1 Name: , Report To 1 FAX: NextGen Order #: Carl Rain MD IMG CT PROCEDURES Sada l Result * CT Abdomen W Contrast (10/21/2017 6:41 PM CDT) Anatomical Region Laterality Modality Body N/A Computed Tomogra phy 10/21/2017 6:41 PM CDT Narrative 10/21/2017 7:33 PM CDT VISH LOZANO M.D. FINAL REPORT ACC# ??Date Time ??Exam [id number] Oct 21, 2017 13:41:[id number] Chest with contrast [id number] Oct 21, 2017 13:41:[id number] Abdomen with contrast EXAMINATION: ??Computed tomography of the chest and abdomen with intravenous contrast HISTORY: Small cell carcinoma of the lung, diagnosed April 2017 treated with chemoradiation. TECHNIQUE: ??Transaxial computed tomographic images of the chest and abdomen were obtained with 125 mL intravenous contrast according to the standard protocol. COMPARISON: Compare study 08/26/2017. FINDINGS: ?? Chest: Images obtained at mediastinal window show no supraclavicular, axillary, superior mediastinal or left hilar adenopathy. There is a confluent mass in the right hilus, best seen today at table position 212 where it measures 21 x 10 mm. On the previous examination at table position -264, this node measured 27 x 11 mm. There is extensive right upper lobe atelectasis is slightly more consolidated compared with the prior study. There is overall volume loss in the right hemithorax that is unchanged. There is no pleural or pericardial effusion. The aorta is moderately calcified in the region of the arch, but there is normal-appearing flow in the proximal segments of both common carotid and both subclavian arteries. The pulmonary arteries are slightly enlarged, unchanged from the prior study. There is no central pulmonary embolism. Images obtained at pulmonary parenchymal windows show increased septal line thickening in the right upper lobe, likely related to lymphatic or venous obstruction in this region. The peripheral consolidation that was present on the prior study has considerably improved in the interval. There is an unchanged peripheral 3 mm nodule in the left upper lobe. There are no new pulmonary nodules and no additional infiltrates. Abdomen: Images of the abdomen show no focal hepatic parenchymal abnormalities. There are multiple calcific gallstones in the dependent portion of the fundus, but no evidence of wall thickening or pericholecystic stranding. The intra and extra hepatic biliary ducts are otherwise normal. The stomach and proximal duodenum are normal. The pancreas is normal. No splenic abnormalities are present. There is no adenopathy in the gastrohepatic ligament. Both adrenal glands are normal. Both kidneys are normal with no evidence of solid renal mass, hydronephrosis, renal or ureteral calculus. There is a small simple cyst in the upper pole of the right kidney. There is no periaortic or pericaval adenopathy. There is moderate atherosclerotic calcification of the infrarenal abdominal aorta and proximal common iliac arteries, but no evidence of aneurysm. The abdominal segments of small and large intestine are normal in appearance. Images obtained at bone window show no focal lytic or blastic lesion. 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 There is no loss of vertebral height at any visible level. The sternum is normal. IMPRESSION: ??Evolving posttreatment changes in the right upper lobe. No evidence of metastatic disease in the chest or abdomen. Electronically signed by: Vish Lozano M.D. Requested By: CARL RAIN M.D. Dictated By: ?? VISH LOZANO M.D. ??on Oct 21 2017 ??2:30P This document has been electronically signed by: VISH LOZANO M.D. on Oct 21 2017 ??2:30P [id number] LOZANO M.D. FINAL REPORT Attending: ??RENETTA, ??CARL Requesting: ??RENETTA, ??CARL Requesting Fax: ?? Attending Fax: ?? Attending ID: ??[id number] Requesting ID: ??[id number] Report To 1 ID: ??[id number] ? Report To 1 Name: ??, ?? Report To 1 FAX: ?? NextGen Order #: ?? Procedure Note Miscellaneous, Not In File - 10/21/2017 VISH LOZANO M.D. FINAL REPORT ACC# Date Time Exam [id number] Oct 21, 2017 13:41:[id number] Chest with contrast [id number] Oct 21, 2017 13:41:[id number] Abdomen with contrast EXAMINATION: Computed tomography of the chest and abdomen with intravenous contrast HISTORY: Small cell carcinoma of the lung, diagnosed April 2017 treated with chemoradiation. TECHNIQUE: Transaxial computed tomographic images of the chest and abdomen were obtained with 125 mL intravenous contrast according to the standard protocol. COMPARISON: Compare study 08/26/2017. FINDINGS: Chest: Images obtained at mediastinal window show no supraclavicular, axillary, superior mediastinal or left hilar adenopathy. There is a confluent mass in the right hilus, best seen today at table position 212 where it measures 21 x 10 mm. On the previous examination at table position -264, this node measured 27 x 11 mm. There is extensive right upper lobe atelectasis is slightly more consolidated compared with the prior study. There is overall volume loss in the right hemithorax that is unchanged. There is no pleural or pericardial effusion. The aorta is moderately calcified in the region of the arch, but there is normal-appearing flow in the proximal segments of both common carotid and both subclavian arteries. The pulmonary arteries are slightly enlarged, unchanged from the prior study. There is no central pulmonary embolism. Images obtained at pulmonary parenchymal windows show increased septal line thickening in the right upper lobe, likely related to lymphatic or venous obstruction in this region. The peripheral consolidation that was present on the prior study has considerably improved in the interval. There is an unchanged peripheral 3 mm nodule in the left upper lobe. There are no new pulmonary nodules and no additional infiltrates. Abdomen: Images of the abdomen show no focal hepatic parenchymal abnormalities. There are multiple calcific gallstones in the dependent portion of the fundus, but no evidence of wall thickening or pericholecystic stranding. The intra and extra hepatic biliary ducts are otherwise normal. The stomach and proximal duodenum are normal. The pancreas is normal. No splenic abnormalities are present. There is no adenopathy in the gastrohepatic ligament. Both adrenal glands are normal. Both kidneys are normal with no evidence of solid renal mass, hydronephrosis, renal or ureteral calculus. There is a small simple cyst in the upper pole of the right kidney. There is no periaortic or pericaval adenopathy. There is moderate atherosclerotic calcification of the infrarenal abdominal aorta and proximal common iliac arteries, but no evidence of aneurysm. The abdominal segments of small and large intestine are normal in appearance. Images obtained at bone window show no focal lytic or blastic lesion. 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 There is no loss of vertebral height at any visible level. The sternum is normal. IMPRESSION: Evolving posttreatment changes in the right upper lobe. No evidence of metastatic disease in the chest or abdomen. Electronically signed by: Vish Lozano M.D. Requested By: CARL RAIN M.D. Dictated By: VISH LOZANO M.D. on Oct 21 2017 2:30P This document has been electronically signed by: VISH LOZANO M.D. on Oct 21 2017 2:30P [id number] LOZANO M.D. FINAL REPORT Attending: CARL RAIN Requesting: CARL RAIN Requesting Fax: Attending Fax: Attending ID: [id number] Requesting ID: [id number] Report To 1 ID: [id number] Report To 1 Name: , Report To 1 FAX: NextGen Order #: Carl Rain MD IMG CT PROCEDURES Sada l Result documented in this encounter Visit Diagnoses Not on filedocumented in this encounter Care Teams Cell Tester Relationship Specialty Start Date End Date Paula Robles NP PCP - General 05/31/17 documented as of this encounter
--- OUTSIDE RECORDS SUMMARY | 2024-08-06 17:37 | XMS_ITS | Encounter Summary ---
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
--- OUTSIDE RECORDS SUMMARY | 2024-08-06 17:37 | XMS_ITS | Encounter Summary ---
Author Organization [facility] Healthcare Address [address] [place] [address] Care Team Providers Care Wide Piece Goods Inspector Name Role Phone Paula Robles Eleni RADIO ANNOUNCER Primary Care Provider + Encounter Details Date Type Department Care Team (Latest Contact Info) Description 07/09/2017 12:31 PM SKIN PILER - 08/30/2017 11:59 PM [facility] [[email or web address] Hospital Encounter [facility] OP INTERIM [phone] Zeeshan Rain MD [address] [place], [place] [id number] Discharge Disposition: Discharge to home or self care Social History Tobacco Use Types Packs/Day Years Used Date Smoking Tobacco: Never Assessed Comments Unknown Sex and Gender Information Value Date Recorded Sex Assigned at Not on file Legal Sex Female 1:02 AM [facility] [[email or web address]] Gender Identity Not on file Sexual Orientation [...] Associated Diagnosis Comments COMPREHENSIVE METABOLIC PANEL STAT 08/30/2017 1:20 PM SKIN PILER CBC WITH AUTO DIFFERENTIAL Routine Gen Lab 08/30/2017 1:01 PM SKIN PILER COMPREHENSIVE METABOLIC PANEL STAT 08/03/2017 9:55 AM SKIN PILER CBC WITH AUTO DIFFERENTIAL Routine Gen Lab 08/03/2017 9:54 AM SKIN PILER MAGNESIUM STAT 07/12/2017 10:35 AM SKIN PILER COMPREHENSIVE METABOLIC PANEL STAT 07/12/2017 10:35 AM SKIN PILER MORPHOLOGY EXAM Routine Gen Lab 07/12/2017 10:18 AM SKIN PILER CBC WITH AUTO DIFFERENTIAL Routine Gen Lab 07/12/2017 10:18 AM SKIN PILER DISCHARGE LABORATORY CUMULATIVE REPORT 07/09/2017 12:00 AM SKIN PILER documented in this encounter Results * (ABNORMAL) Comprehensive metabolic panel (08/30/2017 1:20 PM SKIN PILER) Sodium 143 135 - 145 mmol/L [facility] Potassium, pl 4.2 3.3 - 4.9 mmol/L [facility] CO2 35(H) 22 - 32 mmol/L [facility] BUN 12 8 - 25 mg/dL [facility] Glucose 126 70 - 199 mg/dL [facility] [...] interpretive data was last revised 2017. Creatinine 0.73 0.60 - 1.10 mg/dL [facility] Calcium 9.7 8.5 - 10.3 mg/dL [facility] Chloride 101 97 - 110 mmol/L [facility] Albumin 4.3 3.5 - 5.0 g/dL [facility] AST 21 10 - 45 Units/L [facility] ALT 14 7 - 45 Units/L [facility] Alk phos 113 40 - 130 Units/L [facility] Bilirubin, total 0.5 0.1 - 1.2 mg/dL [facility] Protein, pl 7.4 6.5 - 8.5 g/dL [facility] Anion gap 7 2 - 15 mmol/L [facility] Blood specimen (specimen) 08/30/2017 1:20 PM SKIN PILER 08/30/2017 1:22 PM SKIN PILER Narrative [facility] - 08/30/2017 1:51 PM SKIN PILER us Zeeshan Rain MD LAB BLOOD ORDERABLES F inal Result [facility] Department [place] [address] * (ABNORMAL) CBC with auto differential (08/30/2017 1:01 PM SKIN PILER) WBC 4.4 3.8 - 9.8 K/cumm [facility] RBC 2.96(L) 3.90 - 5.00 M/cumm [facility] Hgb 10.2(L) 12.1 - 15.1 g/dL [facility] Hct 30.9(L) 36.1 - 44.3 % [facility] Mean Cellular Volume - CAM 104.5(H) 80.0 - 97.6 fL [facility] Mean Cellular Hemoglobin - CAM 34.6(H) 26.7 - 33.7 pg [facility] Mean Cellular Hemoglobin Concentration - CAM 33.1 32.7 - 35.5 g/dL [facility] Rdw 24.2(H) 11.8 - 14.6 % [facility] Plt 300 140 - 440 K/cumm [facility] Mean Platelet Volume - CAM 7.0 6.8 - 10.4 fL [facility] Neutrophil pct 65.8 38.7 - 74.5 % [facility] Lymphocyte pct 22.9 20.0 - 54.3 % [facility] Monos 9.2 4.3 - 13.5 % [facility] Eosinophil pct 0.9 0.0 - 6.0 % [facility] Basophil pct 1.2 0.0 - 3.0 % [facility] Neutrophil abs 2.9 1.8 - 6.6 K/cumm [facility] Lymphocyte abs 1.0(L) 1.2 - 3.3 K/cumm [facility] Monocyte abs 0.4 0.2 - 1.2 K/cumm [facility] Eosinophils, abs 0.0 0.0 - 0.5 K/cumm [facility] Basophil abs 0.1 0.0 - 0.2 K/cumm [facility] NRBC 0.2 0.0 - 0.2 % [facility] NRBC abs 0.01 0.00 - 0.01 K/cumm [facility] Blood specimen (specimen) 08/30/2017 1:01 PM SKIN PILER 08/30/2017 1:04 PM SKIN PILER Narrative [facility] - 08/30/2017 1:08 PM SKIN PILER Zeeshan Rain MD LAB BLOOD ORDERABLES F inal Result [facility] [place] [address] * Comprehensive metabolic panel (08/03/2017 9:55 AM SKIN PILER) [facility] Sodium 142 135 - 145 mmol/L [facility] Potassium, pl 3.8 3.3 - 4.9 mmol/L [facility] CO2 32 22 - 32 mmol/L [facility] BUN 9 8 - 25 mg/dL [facility] Glucose 105 70 - 199 mg/dL [facility] [...] interpretive data was last revised 2017. Creatinine 0.67 0.60 - 1.10 mg/dL [facility] Calcium 9.2 8.5 - 10.3 mg/dL [facility] Chloride 100 97 - 110 mmol/L [facility] Albumin 3.9 3.5 - 5.0 g/dL [facility] AST 17 10 - 45 Units/L [facility] ALT 12 7 - 45 Units/L [facility] Alk phos 102 40 - 130 Units/L [facility] Bilirubin, total 0.4 0.1 - 1.2 mg/dL [facility] Protein, pl 7.0 6.5 - 8.5 g/dL [facility] Anion gap 10 2 - 15 mmol/L [facility] Blood specimen (specimen) 08/03/2017 9:55 AM SKIN PILER 08/03/2017 10:20 AM SKIN PILER Narrative [facility] - 08/03/2017 10:44 AM [facility] [[email or web address]] Zeeshan Rain MD LAB BLOOD ORDERABLES F inal Result [facility] Department [place] [address] * (ABNORMAL) CBC with auto differential (08/03/2017 9:54 AM SKIN PILER) [facility] WBC 3.4(L) 3.8 - 9.8 K/cumm [facility] RBC 2.86(L) 3.90 - 5.00 M/cumm [facility] Hgb 9.4(L) 12.1 - 15.1 g/dL [facility] Hct 27.7(L) 36.1 - 44.3 % [facility] Mean Cellular Volume - CAM 96.8 80.0 - 97.6 fL [facility] Mean Cellular Hemoglobin - CAM 32.8 26.7 - 33.7 pg [facility] Mean Cellular Hemoglobin Concentration - CAM 33.9 32.7 - 35.5 g/dL [facility] Rdw 16.9(H) 11.8 - 14.6 % [facility] Plt 209 140 - 440 K/cumm [facility] Mean Platelet Volume - CAM 8.0 6.8 - 10.4 fL [facility] Neutrophil pct 62.7 38.7 - 74.5 % [facility] Lymphocyte pct 21.8 20.0 - 54.3 % [facility] Monos 13.7(H) 4.3 - 13.5 % [facility] Eosinophil pct 0.6 0.0 - 6.0 % [facility] Basophil pct 1.2 0.0 - 3.0 % [facility] Neutrophil abs 2.1 1.8 - 6.6 K/cumm [facility] Lymphocyte abs 0.7(L) 1.2 - 3.3 K/cumm [facility] Monocyte abs 0.5 0.2 - 1.2 K/cumm [facility] Eosinophils, abs 0.0 0.0 - 0.5 K/cumm [facility] Basophil abs 0.0 0.0 - 0.2 K/cumm [facility] NRBC 0.3(H) 0.0 - 0.2 % [facility] NRBC abs 0.01 0.00 - 0.01 K/cumm [facility] Blood specimen (specimen) 08/03/2017 9:54 AM SKIN PILER 08/03/2017 9:57 AM SKIN PILER Narrative [facility] - 08/03/2017 10:02 AM SKIN PILER us Zeeshan Rain MD LAB BLOOD ORDERABLES F inal Result [facility] Department [place] [address] * Magnesium (07/12/2017 10:35 AM SKIN PILER) Magnesium 1.8 1.4 - 2.5 mg/dL [facility] Blood specimen (specimen) 07/12/2017 10:35 AM SKIN PILER 07/12/2017 10:40 AM SKIN PILER Narrative [facility] - 07/12/2017 11:41 AM SKIN PILER Zeeshan Rain MD LAB BLOOD ORDERABLES F inal Result [facility] Department [place] [address] * (ABNORMAL) Comprehensive metabolic panel (07/12/2017 10:35 AM SKIN PILER) Sodium 141 135 - 145 mmol/L [facility] Potassium, pl 2.8(L) 3.3 - 4.9 mmol/L [facility] CO2 33(H) 22 - 32 mmol/L [facility] BUN 8 8 - 25 mg/dL [facility] Glucose 157 70 - 199 mg/dL [facility] [...] interpretive data was last revised 2017. Creatinine 0.58(L) 0.60 - 1.10 mg/dL [facility] Calcium 9.2 8.5 - 10.3 mg/dL [facility] Chloride 97 97 - 110 mmol/L [facility] Albumin 3.7 3.5 - 5.0 g/dL [facility] AST 14 10 - 45 Units/L [facility] ALT 16 7 - 45 Units/L [facility] Alk phos 97 40 - 130 Units/L [facility] Bilirubin, total 0.4 0.1 - 1.2 mg/dL [facility] Protein, pl 7.7 6.5 - 8.5 g/dL [facility] Anion gap 11 2 - 15 mmol/L [facility] Blood specimen (specimen) 07/12/2017 10:35 AM SKIN PILER 07/12/2017 10:40 AM SKIN PILER Narrative [facility] - 07/12/2017 11:10 AM SKIN PILER Zeeshan Rain MD LAB BLOOD ORDERABLES F inal Result Performing Organization Address [facility] de Phone Number [facility] Department [place] [address] * (ABNORMAL) Morphology exam (07/12/2017 10:18 AM SKIN PILER) Pathologist [facility] Metamyelocyte pct 1(H) 0 - 0 % [facility] Neutrophils 83(H) 44 - 80 % [facility] Lymphocytes 11 8 - 44 % [facility] Monos 4 2 - 8 % [facility] Basophil pct 1 0 - 3 % [facility] Cells Diffed - CAM 100 [facility] Platelet estimate Adequate Adequate [facility] Platelet morphology Few Enlarged(A) [facility] Polychromia - CAM Slight None Seen [facility] Blood specimen (specimen) 07/12/2017 10:18 AM SKIN PILER 07/12/2017 10:29 AM SKIN PILER Narrative [facility] - 07/12/2017 10:45 AM SKIN PILER Zeeshan Rain MD LAB BLOOD ORDERABLES F inal Result Performing Organization Address [facility] de Phone Number [facility] Department [place] [address] * (ABNORMAL) CBC with auto differential (07/12/2017 10:18 AM SKIN PILER) Pathologist [facility] WBC 5.4 3.8 - 9.8 K/cumm [facility] RBC 3.40(L) 3.90 - 5.00 M/cumm [facility] Hgb 10.7(L) 12.1 - 15.1 g/dL [facility] Hct 31.4(L) 36.1 - 44.3 % [facility] Mean Cellular Volume - CAM 92.3 80.0 - 97.6 fL [facility] Mean Cellular Hemoglobin - CAM 31.4 26.7 - 33.7 pg [facility] Mean Cellular Hemoglobin Concentration - CAM 34.0 32.7 - 35.5 g/dL [facility] Rdw 13.4 11.8 - 14.6 % [facility] Plt 284 140 - 440 K/cumm [facility] Mean Platelet Volume - CAM 7.9 6.8 - 10.4 fL [facility] NRBC 0.0 0.0 - 0.2 % [facility] NRBC abs 0.00 0.00 - 0.01 K/cumm [facility] Blood specimen (specimen) 07/12/2017 10:18 AM SKIN PILER 07/12/2017 10:22 AM SKIN PILER Narrative [facility] - 07/12/2017 10:33 AM SKIN PILER us Zeeshan Rain MD LAB BLOOD ORDERABLES F inal Result [facility] Department [place] [address] * DISCHARGE LABORATORY CUMULATIVE REPORT (07/09/2017 12:00 AM SKIN PILER) Narrative 07/09/2017 12:00 AM SKIN PILER Ordered by an unspecified provider. us Historical Provider LAB BLOOD ORDERABLES Sada l Result documented in this encounter Visit Diagnoses Not on filedocumented in this encounter Care Teams Wide Piece Goods Inspector Relationship Specialty Start Date End Date Paula Robles NP PCP - General 05/31/17 documented as of this encounter
--- OUTSIDE RECORDS SUMMARY | 2024-08-06 17:37 | XMS_ITS | Encounter Summary ---
Author Organization [facility] Healthcare Address [address] [place] [address] Care Team Providers Care Retail Product Demo Specialist Name Role Phone Travis Paula Eleni MOTOR POOL CLERK Primary Care Provider + Encounter Details Date Type Department Care Team (Late st Contact Info) Description 09/25/2017 Orders Only RAD ONC TREATMENTS Miscellaneous, Not In File Social History Tobacco Use Types Packs/Day Years Used Date Smoking Tobacco: Never Assessed Comments Unknown Sex and Gender Information Value Date Recorded Sex Assigned at Not on file Legal Sex Female 1:02 AM BULB PLANTER Gender Identity Not on file Sexual Orientation Not on file documented as of this encounter Plan of Treatment Not on file documented as of this encounter Procedures Procedure Name Priority Date/Time Associated Diagnosis Comments RAD ONC ARIA SESSION SUMMARY 09/25/2017 12:09 AM BULB PLANTER documented in this encounter Results * RAD ONC ARIA SESSION SUMMARY (09/25/2017 12:09 AM BULB PLANTER) Course Name [id number] ARIA Course Plan Date 09/09/2017 6:49 AM ARIA Elapsed Days 11 ARIA Treatment Site [id number] ARIA Dose Given To Date (cGy) 2,500 ARIA Session Dosage Given (cGy) 250 ARIA Plan ID WHOLE BRAIN ARIA Fractions Treated 10 ARIA Prescribed Dose Per Fraction (cGy) 250 ARIA Prescribed Total Dose (cGy) 2,500 ARIA 09/25/2017 12:0 9 AM BULB PLANTER us Not In File Miscellaneous RADIATION ONCOLOGY ORD ERABLES Final Result ARIA documented in this encounter Visit Diagnoses Not on filedocumented in this encounter Care Teams Retail Product Demo Specialist Relationship Specialty Start Date End Date Paula Robles NP PCP - General 05/31/17 documented as of this encounter
--- OUTSIDE RECORDS SUMMARY | 2024-08-06 17:37 | XMS_ITS | Encounter Summary ---
Author Organization [facility] Address [address] [place] [address] Care Team Providers Care Advertising Associate Name Role Phone Paula Robles Eleni NAVIGATION TEACHER Primary Care Provider + Encounter Details Date Type Department Care Team (Latest Contact Info) Description 12/16/2017 1:02 PM CDT - 12/16/2017 11:59 PM T Hospital Encounter [facility] [phone] Carl Rain MD [address] [facility] [address] [place], [place] [id number] Discharge Disposition: Discharge to home or self care Social History Tobacco Use Types Packs/Day Years Used Date Smoking Tobacco: Former Comments No Sex and Gender Information Value Date Recorded Sex Assigned at Not on file Legal Sex Female 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 ERI VILLALOBOS M.D. FINAL REPORT The radiology attending physician has personally reviewed this study, and has reviewed and/or edited this written report and agrees with it. ACC# ??Date Time ??Exam [id number] December 16, 2017 13:44:[address] Abdomen with contrast [id number] December 16, 2017 13:44:[address] Chest with contrast EXAMINATION: ?? 1. CT CHEST WITH CONTRAST 2. 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 ??Evaluate for disease recurrence TECHNIQUE: Multiple CT images of the Chest and abdomen were performed according to the standard protocol with intravenous contrast. CONTRAST: 125 ??mL Optiray 350 COMPARISON: CT dated 10/21/2017. FINDINGS: Chest: Again seen is volume loss in the right hemithorax, unchanged. ??There is extensive right middle lobe atelectasis which appears slightly improved compared to prior study. ??There are small mucoceles in the right middle lobe. ??Groundglass opacities in the right lower lobe superior segment are unchanged. Redemonstrated is a confluent mass at the right hilum, which appears slightly smaller compared to prior examination, measuring 2.5 x 1 cm (previously 2.7 x 1.3 cm) at slice position 857.8. ??Mild septal line thickening in the right upper lobe appears decreased compared to prior study. ??There is mild scarring/atelectasis at the left lung base. There is an unchanged 3 mm nodule in the peripheral left upper lobe (slice 904.5). ??Other tiny sub-3 mm ground glass nodules in the left upper lung have resolved from prior study. There is no effusion, pneumonia, or pneumothorax. The heart size is normal, without pericardial effusion. ??The aorta remains moderately calcified at the aortic arch. There is no mediastinal, axillary, or supraclavicular lymphadenopathy. Abdomen The esophagus and stomach are normal. The course and caliber of the visualized bowel is normal. The mesentery is normal. The liver is normal, without biliary dilatation. The portal vein is patent. ??Again seen are multiple calcific gallstones in the dependent portion of the fundus of the gallbladder, but no evidence of wall thickening or pericholecystic stranding.. The diameter of the common bile duct is normal. The pancreas is normal, without mass, ductal dilatation, or calcification. The spleen is normal. ??There is a small splenule in the left upper quadrant. The kidneys and adrenal glands are normal. ??There is a simple cyst in the upper pole of the right kidney, unchanged. ??There are other scattered hypoattenuating lesions within both kidneys that are too small to characterize. ??No evidence of hydronephrosis or renal calculi. ??The ureters are normal. There is no free intraabdominal gas or fluid. There is no retroperitoneal or mesenteric lymphadenopathy. ??There is moderate atherosclerotic calcification of the intra-abdominal aorta. ?? Bone windows do not demonstrate concerning osseous lesions. 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 ??The sternum is normal. IMPRESSION: ??1. Evolving posttreatment changes in the right upper lobe and right midlung. 2. No evidence of metastatic disease in the chest or abdomen. 3. Cholelithiasis without evidence of cholecystitis, unchanged Electronically signed by: Shawn Delgado M.D. Requested By: Carl Rain ??M.D. ? Dictated By: ?? ERI VILLLAOBOS M.D. ??on Dec 16 2017 ??2:44P This document has been electronically signed by: SHAWN DELGADO M.D. on Dec 16 2017 ??5:06P [id number] CHILDERS M.D. FINAL REPORT The radiology attending physician has personally reviewed this study, and has reviewed and/or edited this written report and agrees with it. Attending: ??KOFFI, ??CARL Requesting: ??Koffi, ??Carl Requesting Fax: ?? Attending Fax: ?? Attending ID: ??[id number] Requesting ID: ??[id number] Report To 1 ID: ??[id number] ? Report To 1 Name: ??, ?? Report To 1 FAX: ?? NextGen Order #: ?? Procedure Note Miscellaneous, Not In File - 12/16/2017 Cheri CHILDERS M.D. FINAL REPORT The radiology attending physician has personally reviewed this study, and has reviewed and/or edited this written report and agrees with it. ACC# Date Time Exam [id number] December 16, 2017 13:44:[address] Abdomen with contrast [id number] December 16, 2017 13:44:[address] Chest with contrast EXAMINATION: 1. CT CHEST WITH CONTRAST 2. 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 Evaluate for disease recurrence TECHNIQUE: Multiple CT images of the Chest and abdomen were performed according to the standard protocol with intravenous contrast. CONTRAST: 125 mL Optiray 350 COMPARISON: CT dated 10/21/2017. FINDINGS: Chest: Again seen is volume loss in the right hemithorax, unchanged. There is extensive right middle lobe atelectasis which appears slightly improved compared to prior study. There are small mucoceles in the right middle lobe. Groundglass opacities in the right lower lobe superior segment are unchanged. Redemonstrated is a confluent mass at the right hilum, which appears slightly smaller compared to prior examination, measuring 2.5 x 1 cm (previously 2.7 x 1.3 cm) at slice position 857.8. Mild septal line thickening in the right upper lobe appears decreased compared to prior study. There is mild scarring/atelectasis at the left lung base. There is an unchanged 3 mm nodule in the peripheral left upper lobe (slice 904.5). Other tiny sub-3 mm ground glass nodules in the left upper lung have resolved from prior study. There is no effusion, pneumonia, or pneumothorax. The heart size is normal, without pericardial effusion. The aorta remains moderately calcified at the aortic arch. There is no mediastinal, axillary, or supraclavicular lymphadenopathy. Abdomen The esophagus and stomach are normal. The course and caliber of the visualized bowel is normal. The mesentery is normal. The liver is normal, without biliary dilatation. The portal vein is patent. Again seen are multiple calcific gallstones in the dependent portion of the fundus of the gallbladder, but no evidence of wall thickening or pericholecystic stranding.. The diameter of the common bile duct is normal. The pancreas is normal, without mass, ductal dilatation, or calcification. The spleen is normal. There is a small splenule in the left upper quadrant. The kidneys and adrenal glands are normal. There is a simple cyst in the upper pole of the right kidney, unchanged. There are other scattered hypoattenuating lesions within both kidneys that are too small to characterize. No evidence of hydronephrosis or renal calculi. The ureters are normal. There is no free intraabdominal gas or fluid. There is no retroperitoneal or mesenteric lymphadenopathy. There is moderate atherosclerotic calcification of the intra-abdominal aorta. Bone windows do not demonstrate concerning osseous lesions. 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 The sternum is normal. IMPRESSION: 1. Evolving posttreatment changes in the right upper lobe and right midlung. 2. No evidence of metastatic disease in the chest or abdomen. 3. Cholelithiasis without evidence of cholecystitis, unchanged Electronically signed by: Shawn Delgado M.D. Requested By: Carl Rain M.D. Dictated By: ERI VILLALOBOS M.D. on Dec 16 2017 2:44P This document has been electronically signed by: SHAWN DELGADO M.D. on Dec 16 2017 5:06P [id number] CHILDERS M.D. FINAL REPORT The radiology attending physician has personally reviewed this study, and has reviewed and/or edited this written report and agrees with it. Attending: CARL RAIN Requesting: Carl Rain Requesting Fax: Attending Fax: Attending ID: [id number] Requesting ID: [id number] Report To 1 ID: [id number] Report To 1 Name: , Report To 1 FAX: NextGen Order #: Carl Rain MD IMG CT PROCEDURES Sada l Result * CT Abdomen W Contrast (12/16/2017 6:44 PM CDT) Anatomical Region Laterality Modality Body N/A Computed Tomogra phy 12/16/2017 6:44 PM CDT Narrative 12/16/2017 10:10 PM CDT Cheri CHILDERS M.D. FINAL REPORT The radiology attending physician has personally reviewed this study, and has reviewed and/or edited this written report and agrees with it. ACC# ??Date Time ??Exam [id number] December 16, 2017 13:44:[address] Abdomen with contrast [id number] December 16, 2017 13:44:[address] Chest with contrast EXAMINATION: ?? 1. CT CHEST WITH CONTRAST 2. 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 ??Evaluate for disease recurrence TECHNIQUE: Multiple CT images of the Chest and abdomen were performed according to the standard protocol with intravenous contrast. CONTRAST: 125 ??mL Optiray 350 COMPARISON: CT dated 10/21/2017. FINDINGS: Chest: Again seen is volume loss in the right hemithorax, unchanged. ??There is extensive right middle lobe atelectasis which appears slightly improved compared to prior study. ??There are small mucoceles in the right middle lobe. ??Groundglass opacities in the right lower lobe superior segment are unchanged. Redemonstrated is a confluent mass at the right hilum, which appears slightly smaller compared to prior examination, measuring 2.5 x 1 cm (previously 2.7 x 1.3 cm) at slice position 857.8. ??Mild septal line thickening in the right upper lobe appears decreased compared to prior study. ??There is mild scarring/atelectasis at the left lung base. There is an unchanged 3 mm nodule in the peripheral left upper lobe (slice 904.5). ??Other tiny sub-3 mm ground glass nodules in the left upper lung have resolved from prior study. There is no effusion, pneumonia, or pneumothorax. The heart size is normal, without pericardial effusion. ??The aorta remains moderately calcified at the aortic arch. There is no mediastinal, axillary, or supraclavicular lymphadenopathy. Abdomen The esophagus and stomach are normal. The course and caliber of the visualized bowel is normal. The mesentery is normal. The liver is normal, without biliary dilatation. The portal vein is patent. ??Again seen are multiple calcific gallstones in the dependent portion of the fundus of the gallbladder, but no evidence of wall thickening or pericholecystic stranding.. The diameter of the common bile duct is normal. The pancreas is normal, without mass, ductal dilatation, or calcification. The spleen is normal. ??There is a small splenule in the left upper quadrant. The kidneys and adrenal glands are normal. ??There is a simple cyst in the upper pole of the right kidney, unchanged. ??There are other scattered hypoattenuating lesions within both kidneys that are too small to characterize. ??No evidence of hydronephrosis or renal calculi. ??The ureters are normal. There is no free intraabdominal gas or fluid. There is no retroperitoneal or mesenteric lymphadenopathy. ??There is moderate atherosclerotic calcification of the intra-abdominal aorta. ?? Bone windows do not demonstrate concerning osseous lesions. 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 ??The sternum is normal. IMPRESSION: ??1. Evolving posttreatment changes in the right upper lobe and right midlung. 2. No evidence of metastatic disease in the chest or abdomen. 3. Cholelithiasis without evidence of cholecystitis, unchanged Electronically signed by: Shawn Delgado M.D. Requested By: Carl Rain ??M.D. ? Dictated By: ?? ERI VILLALOBOS M.D. ??on Dec 16 2017 ??2:44P This document has been electronically signed by: SHAWN DELGADO M.D. on Dec 16 2017 ??5:06P [id number] CHILDERS M.D. FINAL REPORT The radiology attending physician has personally reviewed this study, and has reviewed and/or edited this written report and agrees with it. Attending: ??KOFFI, ??CARL Requesting: ??Koffi, ??aCrl Requesting Fax: ?? Attending Fax: ?? Attending ID: ??[id number] Requesting ID: ??[id number] Report To 1 ID: ??[id number] ? Report To 1 Name: ??, ?? Report To 1 FAX: ?? NextGen Order #: ?? Procedure Note Miscellaneous, Not In File - 12/16/2017 Cheri CHILDERS M.D. FINAL REPORT The radiology attending physician has personally reviewed this study, and has reviewed and/or edited this written report and agrees with it. ACC# Date Time Exam [id number] December 16, 2017 13:44:[address] Abdomen with contrast [id number] December 16, 2017 13:44:[address] Chest with contrast EXAMINATION: 1. CT CHEST WITH CONTRAST 2. 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 Evaluate for disease recurrence TECHNIQUE: Multiple CT images of the Chest and abdomen were performed according to the standard protocol with intravenous contrast. CONTRAST: 125 mL Optiray 350 COMPARISON: CT dated 10/21/2017. FINDINGS: Chest: Again seen is volume loss in the right hemithorax, unchanged. There is extensive right middle lobe atelectasis which appears slightly improved compared to prior study. There are small mucoceles in the right middle lobe. Groundglass opacities in the right lower lobe superior segment are unchanged. Redemonstrated is a confluent mass at the right hilum, which appears slightly smaller compared to prior examination, measuring 2.5 x 1 cm (previously 2.7 x 1.3 cm) at slice position 857.8. Mild septal line thickening in the right upper lobe appears decreased compared to prior study. There is mild scarring/atelectasis at the left lung base. There is an unchanged 3 mm nodule in the peripheral left upper lobe (slice 904.5). Other tiny sub-3 mm ground glass nodules in the left upper lung have resolved from prior study. There is no effusion, pneumonia, or pneumothorax. The heart size is normal, without pericardial effusion. The aorta remains moderately calcified at the aortic arch. There is no mediastinal, axillary, or supraclavicular lymphadenopathy. Abdomen The esophagus and stomach are normal. The course and caliber of the visualized bowel is normal. The mesentery is normal. The liver is normal, without biliary dilatation. The portal vein is patent. Again seen are multiple calcific gallstones in the dependent portion of the fundus of the gallbladder, but no evidence of wall thickening or pericholecystic stranding.. The diameter of the common bile duct is normal. The pancreas is normal, without mass, ductal dilatation, or calcification. The spleen is normal. There is a small splenule in the left upper quadrant. The kidneys and adrenal glands are normal. There is a simple cyst in the upper pole of the right kidney, unchanged. There are other scattered hypoattenuating lesions within both kidneys that are too small to characterize. No evidence of hydronephrosis or renal calculi. The ureters are normal. There is no free intraabdominal gas or fluid. There is no retroperitoneal or mesenteric lymphadenopathy. There is moderate atherosclerotic calcification of the intra-abdominal aorta. Bone windows do not demonstrate concerning osseous lesions. 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 The sternum is normal. IMPRESSION: 1. Evolving posttreatment changes in the right upper lobe and right midlung. 2. No evidence of metastatic disease in the chest or abdomen. 3. Cholelithiasis without evidence of cholecystitis, unchanged Electronically signed by: Shawn Delgado M.D. Requested By: Carl Rain M.D. Dictated By: ERI VILLALOBOS M.D. on Dec 16 2017 2:44P This document has been electronically signed by: SHAWN DELGADO M.D. on Dec 16 2017 5:06P [id number] CHILDERS M.D. FINAL REPORT The radiology attending physician has personally reviewed this study, and has reviewed and/or edited this written report and agrees with it. Attending: CARL ARIN Requesting: Carl Rain Requesting Fax: Attending Fax: Attending ID: [id number] Requesting ID: [id number] Report To 1 ID: [id number] Report To 1 Name: , Report To 1 FAX: NextGen Order #: Carl Rain MD IMG CT PROCEDURES Sada l Result documented in this encounter Visit Diagnoses Not on filedocumented in this encounter Care Teams Advertising Associate Relationship Specialty Start Date End Date Paula Robles NP PCP - General 05/31/17 documented as of this encounter
--- OUTSIDE RECORDS SUMMARY | 2024-08-06 17:37 | XMS_ITS | Encounter Summary ---
Author Organization [facility] Address [address] [place] [address] Care Team Providers Care Mold Changer Name Role Phone Paula Robles PRE OWNED SALES CONSULTANT Primary Care Provider + Encounter Details Date Type Department Care Team (Latest Contact Info) Description 09/08/2017 12:19 PM DATABASE ADMINISTRATION ASSOCIATE - 09/08/2017 11:59 PM DATABASE ADMINISTRATION ASSOCIATE Hospital Encounter [facility] [address] [place] [address] Addy Mathur MD PhD [address] [place] [address] Malignant neoplasm of upper lobe of right lung (CMS/HCC) Discharge Disposition: Discharge to home or self care Social History Tobacco Use Types Packs/Day Years Used Date Smoking Tobacco: Never Assessed Comments Unknown Sex and Gender Information Value Date Recorded Sex Assigned at Not on file Legal Sex Female 1:02 AM DATABASE ADMINISTRATION ASSOCIATE Gender Identity Not on file Sexual Orientation [...] CONTRAST Schedule Routine, Read Routine (OP Routine) 09/08/2017 1:22 PM DATABASE ADMINISTRATION ASSOCIATE Malignant neoplasm of upper lobe of right lung (CMS/HCC) DISCHARGE LABORATORY CUMULATIVE REPORT 09/08/2017 12:00 AM DATABASE ADMINISTRATION ASSOCIATE documented in this encounter Results * MRI Brain W WO Contrast (09/08/2017 1:22 PM DATABASE ADMINISTRATION ASSOCIATE) Anatomical Region Laterality Modality Head and Neck N/A Magnetic Resonan ce Impressions 09/09/2017 4:29 PM DATABASE ADMINISTRATION ASSOCIATE STABLE APPEARANCE WITH SMALL VESSEL DISEASE AND 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 ??NO EVIDENCE OF METASTATIC DISEASE. RESULTS CALLED STAT. Electronically signed by: Avni Jackson M.D. Narrative 09/09/2017 4:29 PM DATABASE ADMINISTRATION ASSOCIATE RESULT: EXAMINATION: MRI BRAIN W WO CONTRAST dated 09/08/2017 12:45 PM HISTORY: 67-year-old woman history of lung carcinoma metastatic evaluation. TECHNIQUE: Multiplanar multisequence spin-echo images obtained. ??Following 20 mL of DOTAREM, repeat T1-weighted images obtained. FINDINGS: Correlation is made with the studies most recent which is dated 07/16/2017. ??Ventricles and cortical sulci are stable and unchanged since previously and within normal limits. ??No midline shift or hemorrhage is seen. ??On the FLAIR images, note is again made of areas of T2 hyperintensity in the periventricular and subcortical deep white matter as well as within the basal ganglia primarily on the right side and the lentiform nucleus. ??T2-weighted images demonstrate similar findings. ??Old lacunar infarct in the left caudate nucleus head is unchanged. ??Normal flow voids within the [place]. Normal mancilla-white matter differentiation. ??Paranasal sinuses and mastoid air cells normally aerated. ??Diffusion-weighted images demonstrate no abnormal restricted diffusion. ??Normal pituitary fossa. ??Aqueduct is patent. ??The 4th ventricle and craniovertebral junction are normal. ??Contrast administration demonstrates no abnormal enhancement. Procedure Note Avni Jackson MD - 09/09/2017 RESULT: EXAMINATION: MRI BRAIN W WO CONTRAST dated 09/08/2017 12:45 PM HISTORY: 67-year-old woman history of lung carcinoma metastatic evaluation. TECHNIQUE: Multiplanar multisequence spin-echo images obtained. Following 20 mL of DOTAREM, repeat T1-weighted images obtained. FINDINGS: Correlation is made with the studies most recent which is dated 07/16/2017. Ventricles and cortical sulci are stable and unchanged since previously and within normal limits. No midline shift or hemorrhage is seen. On the FLAIR images, note is again made of areas of T2 hyperintensity in the periventricular and subcortical deep white matter as well as within the basal ganglia primarily on the right side and the lentiform nucleus. T2-weighted images demonstrate similar findings. Old lacunar infarct in the left caudate nucleus head is unchanged. Normal flow voids within the [place]. Normal mancilla-white matter differentiation. Paranasal sinuses and mastoid air cells normally aerated. Diffusion-weighted images demonstrate no abnormal restricted diffusion. Normal pituitary fossa. Aqueduct is patent. The 4th ventricle and craniovertebral junction are normal. Contrast administration demonstrates no abnormal enhancement. 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 NO EVIDENCE OF METASTATIC DISEASE. RESULTS CALLED STAT. Electronically signed by: Avni Jackson M.D. Addy Mathur MD PhD IMG MRI PROCEDURES Fin al Result * DISCHARGE LABORATORY CUMULATIVE REPORT (09/08/2017 12:00 AM DATABASE ADMINISTRATION ASSOCIATE) Narrative 09/08/2017 12:00 AM DATABASE ADMINISTRATION ASSOCIATE Ordered by an unspecified provider. us Historical Provider LAB BLOOD ORDERABLES Sada raul Result documented in this encounter Visit Diagnoses Diagnosis Malignant neoplasm of upper lobe of right lung (HCC) documented in this encounter Administered Medications Inactive Administered Medications - up to 3 most recent administrations Medication Order MAR Action Action Date Dose Rate Site gadoterate meglumine (DOTAREM) 0.5 mmol/mL injection 20 mL 20 mL, intravenous, Once in imaging, contrast, Starting on 1/31/18 at 1301, For 1 dose Given 09/08/2017 1:08 PM DATABASE ADMINISTRATION ASSOCIATE 20 mL Right Hand documented in this encounter Orders Medications Ordered That Adam ht Not Have Been Administered Count Last Ordered Date First Ordered Date gadoterate meglumine (DOTARE M) 0.5 mmol/mL injection 20 mL 1 09/08/2017 documented in this encounter Care Teams Mold Changer Relationship Specialty Start Date End Date Paula Robles NP PCP - General 05/31/17 documented as of this encounter
--- OUTSIDE RECORDS SUMMARY | 2024-08-06 17:37 | XMS_ITS | Encounter Summary ---
Author Organization [facility] Healthcare Address [address] [place] [address] Care Team Providers Care Granite Cutter Apprentice Name Role Phone Paula Robles Eleni SALES REPRESENTATIVE ELECTRIC SERVICE Primary Care Provider + Encounter Details Date Type Department Care Team (Latest Contact Info) Description 08/26/2017 12:58 PM ASSOCIATE DIRECTOR OF DEVELOPMENT - 08/26/2017 11:59 PM [facility] Hospital Encounter [facility] INTERIM [phone] Carl Rain MD [address] [place], [place] [id number] Discharge Disposition: Discharge to home or self care Social History Tobacco Use Types Packs/Day Years Used Date Smoking Tobacco: Never Assessed Comments Unknown Sex and Gender Information Value Date Recorded Sex Assigned at Not on file Legal Sex Female 1:02 AM ASSOCIATE DIRECTOR OF DEVELOPMENT Gender Identity Not on file Sexual Orientation [...] Diagnosis Comments CT ABDOMEN W CONTRAST Routine 08/26/2017 7:46 PM ASSOCIATE DIRECTOR OF DEVELOPMENT CT CHEST W CONTRAST Routine 08/26/2017 7 :46 PM ASSOCIATE DIRECTOR OF DEVELOPMENT documented in this encounter Results * CT Abdomen W Contrast (08/26/2017 7:46 PM ASSOCIATE DIRECTOR OF DEVELOPMENT) Anatomical Region Laterality Modality Body N/A Computed Tomogra phy 08/26/2017 7:46 PM ASSOCIATE DIRECTOR OF DEVELOPMENT Narrative 08/26/2017 8:54 PM ASSOCIATE DIRECTOR OF DEVELOPMENT MD OLIVER IGLESIAS M.D. FINAL REPORT The radiology attending physician has personally reviewed this study, and has reviewed and/or edited this written report and agrees with it. ACC# ??Date Time ??Exam [id number] Aug 26, 2017 13:46:[address] Chest with contrast [id number] Aug 26, 2017 13:46:[address] Abdomen with contrast EXAMINATION: ??CT of the chest and abdomen with intravenous contrast. 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 TECHNIQUE: Transaxial computed tomographic images of the chest and abdomen were obtained with 94 mL of Optiray 350 intravenous contrast according to standard protocol. ??No immediate complications following intravenous contrast administration. Comparison: Comparison is made to the prior CT examination from 07/09/2017. FINDINGS: There is interval decrease of the right upper lobe spiculated mass that now measures 2.1 x 1.3 cm, previously 3.9 x 3.3 cm. ??There continues to be tethering of the right hilum with cut off of the right upper lobe bronchus resulting in right upper lobe partial collapse but this is improved from the comparison examination. ??The confluent right hilar lymphadenopathy has also decreased. ??There is bronchiectasis at the medial right upper lobe, right upper lobe septal line thickening, and other changes from radiation therapy. A 2 mm left upper lobe pulmonary nodule is unchanged (-220.9). ??No pneumothorax or pleural effusion. There is no axillary, supraclavicular, or left hilar lymphadenopathy. The heart size is normal. ??There is trace pericardial effusion, unchanged. The liver, spleen, adrenal glands, pancreas, and kidneys are normal. There are multiple layering gallstones but no findings of cholecystitis. ??There are simple renal cyst on the right. ??There is a small splenule anterior to the spleen. ??The visualized bowels have no wall thickening or obstruction. ??The appendix is partially visualized and is normal. ??There is no abdominal lymphadenopathy. ??No free fluid. The bone windows show no lytic or blastic lesions. IMPRESSION: ??1. Decrease in size of a spiculated left upper lobe mass that now measures 2.1 x 1.3 cm, previously 3.9 x 3.3 cm with continued cut off of the right upper lobe bronchus and partial collapse of the right upper lobe but this has also improved. 2. No metastatic disease in the abdomen or bones. 3. Cholelithiasis. Electronically signed by: Mich Reddy M.D. Requested By: CARL RAIN M.D. Dictated By: ?? OLIVER BARNHART M.D. ??on Aug 26 2017 ??2:15P This document has been electronically signed by: MICH REDDY MD on Aug 26 2017 ??2:52P [id number] OLIVER IGLESIAS M.D. FINAL REPORT The radiology attending physician has personally reviewed this study, and has reviewed and/or edited this written report and agrees with it. Attending: ??RENETTA, ??CARL Requesting: ??RENETTA, ??CARL Requesting Fax: ?? Attending Fax: ?? Attending ID: ??[id number] Requesting ID: ??[id number] Report To 1 ID: ??[id number] ? Report To 1 Name: ??, ?? Report To 1 FAX: ?? NextGen Order #: ?? Procedure Note Miscellaneous, Not In File - 08/26/2017 MD OLIVER IGLESIAS M.D. FINAL REPORT The radiology attending physician has personally reviewed this study, and has reviewed and/or edited this written report and agrees with it. [facility] Date Time Exam [id number] Aug 26, 2017 13:46:[address] Chest with contrast [id number] Aug 26, 2017 13:46:[address] Abdomen with contrast EXAMINATION: CT of the chest and abdomen with intravenous contrast. 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 TECHNIQUE: Transaxial computed tomographic images of the chest and abdomen were obtained with 94 mL of Optiray 350 intravenous contrast according to standard protocol. No immediate complications following intravenous contrast administration. Comparison: Comparison is made to the prior CT examination from 07/09/2017. FINDINGS: There is interval decrease of the right upper lobe spiculated mass that now measures 2.1 x 1.3 cm, previously 3.9 x 3.3 cm. There continues to be tethering of the right hilum with cut off of the right upper lobe bronchus resulting in right upper lobe partial collapse but this is improved from the comparison examination. The confluent right hilar lymphadenopathy has also decreased. There is bronchiectasis at the medial right upper lobe, right upper lobe septal line thickening, and other changes from radiation therapy. A 2 mm left upper lobe pulmonary nodule is unchanged (-220.9). No pneumothorax or pleural effusion. There is no axillary, supraclavicular, or left hilar lymphadenopathy. The heart size is normal. There is trace pericardial effusion, unchanged. The liver, spleen, adrenal glands, pancreas, and kidneys are normal. There are multiple layering gallstones but no findings of cholecystitis. There are simple renal cyst on the right. There is a small splenule anterior to the spleen. The visualized bowels have no wall thickening or obstruction. The appendix is partially visualized and is normal. There is no abdominal lymphadenopathy. No free fluid. The bone windows show no lytic or blastic lesions. IMPRESSION: 1. Decrease in size of a spiculated left upper lobe mass that now measures 2.1 x 1.3 cm, previously 3.9 x 3.3 cm with continued cut off of the right upper lobe bronchus and partial collapse of the right upper lobe but this has also improved. 2. No metastatic disease in the abdomen or bones. 3. Cholelithiasis. Electronically signed by: Mich Reddy M.D. Requested By: CARL RAIN.D. Dictated By: OLIVER BARNHART M.D. on Aug 26 2017 2:15P This document has been electronically signed by: MICH REDDY MD on Aug 26 2017 2:52P [id number] OLIVER IGLESIAS M.D. FINAL REPORT The radiology attending physician has personally reviewed this study, and has reviewed and/or edited this written report and agrees with it. Attending: CARL RAIN Requesting: CARL RAIN Requesting Fax: Attending Fax: Attending ID: [id number] Requesting ID: [id number] Report To 1 ID: [id number] Report To 1 Name: , Report To 1 FAX: NextGen Order #: Carl Rain MD IMG CT PROCEDURES Sada l Result * CT Chest W Contrast (08/26/2017 7:46 PM ASSOCIATE DIRECTOR OF DEVELOPMENT) Anatomical Region Laterality Modality Body N/A Computed Tomogra phy 08/26/2017 7:46 PM ASSOCIATE DIRECTOR OF DEVELOPMENT Narrative 08/26/2017 8:54 PM ASSOCIATE DIRECTOR OF DEVELOPMENT MD OLIVER IGLESIAS M.D. FINAL REPORT The radiology attending physician has personally reviewed this study, and has reviewed and/or edited this written report and agrees with it. ACC# ??Date Time ??Exam [id number] Aug 26, 2017 13:46:[address] Chest with contrast [id number] Aug 26, 2017 13:46:[address] Abdomen with contrast EXAMINATION: ??CT of the chest and abdomen with intravenous contrast. 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 TECHNIQUE: Transaxial computed tomographic images of the chest and abdomen were obtained with 94 mL of Optiray 350 intravenous contrast according to standard protocol. ??No immediate complications following intravenous contrast administration. Comparison: Comparison is made to the prior CT examination from 07/09/2017. FINDINGS: There is interval decrease of the right upper lobe spiculated mass that now measures 2.1 x 1.3 cm, previously 3.9 x 3.3 cm. ??There continues to be tethering of the right hilum with cut off of the right upper lobe bronchus resulting in right upper lobe partial collapse but this is improved from the comparison examination. ??The confluent right hilar lymphadenopathy has also decreased. ??There is bronchiectasis at the medial right upper lobe, right upper lobe septal line thickening, and other changes from radiation therapy. A 2 mm left upper lobe pulmonary nodule is unchanged (-220.9). ??No pneumothorax or pleural effusion. There is no axillary, supraclavicular, or left hilar lymphadenopathy. The heart size is normal. ??There is trace pericardial effusion, unchanged. The liver, spleen, adrenal glands, pancreas, and kidneys are normal. There are multiple layering gallstones but no findings of cholecystitis. ??There are simple renal cyst on the right. ??There is a small splenule anterior to the spleen. ??The visualized bowels have no wall thickening or obstruction. ??The appendix is partially visualized and is normal. ??There is no abdominal lymphadenopathy. ??No free fluid. The bone windows show no lytic or blastic lesions. IMPRESSION: ??1. Decrease in size of a spiculated left upper lobe mass that now measures 2.1 x 1.3 cm, previously 3.9 x 3.3 cm with continued cut off of the right upper lobe bronchus and partial collapse of the right upper lobe but this has also improved. 2. No metastatic disease in the abdomen or bones. 3. Cholelithiasis. Electronically signed by: Mich Reddy M.D. Requested By: CARL RAIN M.D. Dictated By: ?? OLIVER BARNHART M.D. ??on Aug 26 2017 ??2:15P This document has been electronically signed by: MICH REDDY MD on Aug 26 2017 ??2:52P [id number] OLIVER IGLESIAS M.D. FINAL REPORT The radiology attending physician has personally reviewed this study, and has reviewed and/or edited this written report and agrees with it. Attending: ??RENETTA, ??CARL Requesting: ??RENETTA, ??CARL Requesting Fax: ?? Attending Fax: ?? Attending ID: ??[id number] Requesting ID: ??[id number] Report To 1 ID: ??[id number] ? Report To 1 Name: ??, ?? Report To 1 FAX: ?? NextGen Order #: ?? Procedure Note Miscellaneous, Not In File - 08/26/2017 MD OLIVER IGLESIAS M.D. FINAL REPORT The radiology attending physician has personally reviewed this study, and has reviewed and/or edited this written report and agrees with it. ACC# Date Time Exam [id number] Aug 26, 2017 13:46:[address] Chest with contrast [id number] Aug 26, 2017 13:46:[address] Abdomen with contrast EXAMINATION: CT of the chest and abdomen with intravenous contrast. 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 TECHNIQUE: Transaxial computed tomographic images of the chest and abdomen were obtained with 94 mL of Optiray 350 intravenous contrast according to standard protocol. No immediate complications following intravenous contrast administration. Comparison: Comparison is made to the prior CT examination from 07/09/2017. FINDINGS: There is interval decrease of the right upper lobe spiculated mass that now measures 2.1 x 1.3 cm, previously 3.9 x 3.3 cm. There continues to be tethering of the right hilum with cut off of the right upper lobe bronchus resulting in right upper lobe partial collapse but this is improved from the comparison examination. The confluent right hilar lymphadenopathy has also decreased. There is bronchiectasis at the medial right upper lobe, right upper lobe septal line thickening, and other changes from radiation therapy. A 2 mm left upper lobe pulmonary nodule is unchanged (-220.9). No pneumothorax or pleural effusion. There is no axillary, supraclavicular, or left hilar lymphadenopathy. The heart size is normal. There is trace pericardial effusion, unchanged. The liver, spleen, adrenal glands, pancreas, and kidneys are normal. There are multiple layering gallstones but no findings of cholecystitis. There are simple renal cyst on the right. There is a small splenule anterior to the spleen. The visualized bowels have no wall thickening or obstruction. The appendix is partially visualized and is normal. There is no abdominal lymphadenopathy. No free fluid. The bone windows show no lytic or blastic lesions. IMPRESSION: 1. Decrease in size of a spiculated left upper lobe mass that now measures 2.1 x 1.3 cm, previously 3.9 x 3.3 cm with continued cut off of the right upper lobe bronchus and partial collapse of the right upper lobe but this has also improved. 2. No metastatic disease in the abdomen or bones. 3. Cholelithiasis. Electronically signed by: Mich Reddy M.D. Requested By: CARL RAIN M.D. Dictated By: OLIVER BARNHART M.D. on Aug 26 2017 2:15P This document has been electronically signed by: MICH REDDY MD on Aug 26 2017 2:52P [id number] OLIVER IGLESIAS M.D. FINAL REPORT The radiology attending physician has personally reviewed this study, and has reviewed and/or edited this written report and agrees with it. Attending: CARL RAIN Requesting: CARL RAIN Requesting Fax: Attending Fax: Attending ID: [id number] Requesting ID: [id number] Report To 1 ID: [id number] Report To 1 Name: , Report To 1 FAX: NextGen Order #: Carl Rain MD IMG CT PROCEDURES Sada l Result documented in this encounter Visit Diagnoses Not on filedocumented in this encounter Care Teams Granite Cutter Apprentice Relationship Specialty Start Date End Date Paula Robles NP PCP - General 05/31/17 documented as of this encounter
--- OUTSIDE RECORDS SUMMARY | 2024-08-06 17:37 | XMS_ITS | Encounter Summary ---
Author Organization [facility] Healthcare Address [address] [place] [address] Care Team Providers Care Part Maker Name Role Phone Paula Robles HOTEL FRONT DESK AGENT Primary Care Provider + Encounter Details Date Type Department Care Team (Late st Contact Info) Description 09/08/2017 Orders Only [facility] Inter[facility] [phone] Addy Mathur MD PhD [address] [place] [address] Social History Tobacco Use Types Packs/Day Years Used Date Smoking Tobacco: Never Assessed Comments Unknown Sex and Gender Information Value Date Recorded Sex Assigned at Not on file Legal Sex Female 1:02 AM PROTEIN SCIENTIST Gender Identity Not on file Sexual Orientation Not on file documented as of this encounter Plan of Treatment Not on file documented as of this encounter Procedures Procedure Name Priority Date/Time Associated Diagnosis Comments EGFR STAT 09/08/2017 12:09 PM PROTEIN SCIENTIST CREATININE, WHOLE BLOOD STAT 09/08/2017 12:09 PM PROTEIN SCIENTIST documented in this encounter Results * eGFR (09/08/2017 12:09 PM PROTEIN SCIENTIST) eGFR >60 mL/min/1.73 m2 [facility] Blood specimen (specimen) 09/08/2017 12:09 PM PROTEIN SCIENTIST 09/08/2017 12:29 PM PROTEIN SCIENTIST Narrative [facility] - 09/08/2017 12:35 PM PROTEIN SCIENTIST us Addy Mathur MD PhD LAB BLOOD ORDERABLES F inal Result Performing Organization Address City/[facility] Co de Phone Number A[facility] CEBALLOS [address] [facility] [employer] [address] * Creatinine, whole blood (09/08/2017 12:09 PM PROTEIN SCIENTIST) Creatinine, bld 0.73 0.60 - 1.30 mg/dL [facility] Blood specimen (specimen) 09/08/2017 12:09 PM PROTEIN SCIENTIST 09/08/2017 12:09 PM PROTEIN SCIENTIST Narrative [facility] - 09/08/2017 12:35 PM PROTEIN SCIENTIST us Addy Mathur MD PhD LAB BLOOD ORDERABLES F inal Result Performing Organization Address [facility] de Phone Number ARSENIO CEBALLOS [address] [facility] [employer] [address] documented in this encounter Visit Diagnoses Not on filedocumented in this encounter Care Teams Part Maker Relationship Specialty Start Date End Date Paula Robles NP PCP - General 05/31/17 documented as of this encounter
--- OUTSIDE RECORDS SUMMARY | 2024-08-06 17:37 | XMS_ITS | Encounter Summary ---
Author Organization [facility] Address [address] [place] [address] Phone Care Team Providers Care Workers Compensation Claims Examiner Name Role Phone Paula Robles RIVET CATCHER Primary Care Provider + Zeeshan Rain MD Unavailable [phone] [facility] PhD Unavailable Ama Zavaleta MD Unavailable [phone] Katlin Martinez NP Unavailable [phone] Encounter Details Date Type Department Care Team (Late st Contact Info) Description 08/03/2017 Orders Only [facility] ProviderBishop MD [address] [place] [address] Social History Tobacco Use Types Packs/Day Years Used Date Smoking Tobacco: Never Assessed Comments Unknown Sex and Gender Information Value Date Recorded Sex Assigned at Not on file Legal Sex Female 1:02 AM AUTOMOTIVE SALES ASSOCIATE Gender Identity Not on file Sexual Orientation Not on file documented as of this encounter Plan of Treatment Not on file documented as of this encounter Procedures Procedure Name Priority Date/Time Associated Diagnosis Comments GENERAL RADIOLOGY REPORT 08/03/2017 documented in this encounter Results * GENERAL RADIOLOGY REPORT (08/03/2017) Anatomical Region Laterality Modality Radiographic Rosalia ging Narrative 08/03/2017 Ordered by an unspecified provider. us Historical Provider MD PAREDES XR PROCEDURES Final R esult documented in this encounter Visit Diagnoses Not on filedocumented in this encounter Care Teams Workers Compensation Claims Examiner Relationship Specialty Start Date End Date Paula Robles NP PCP - General 05/31/17 Zeeshan Rain MD Medical Oncologist/Heavy Equipment Diesel Mechanic Medical Oncology 02/11/18 08/23/22 Addy Mathur MD PhD [address] [place] [address] Radiation Oncologist Radiation Oncology 03/10/18 Ama Zavaleta MD [address] [facility] [address] [place] [address] Medical Oncologist/Heavy Equipment Diesel Mechanic Medical Oncology 10/20/22 Katlin Martinez NP [address] [place] [address] [place] [address] Nurse Practitioner 03/06/24 documented as of this encounter
--- OUTSIDE RECORDS SUMMARY | 2024-08-06 17:37 | XMS_ITS | Encounter Summary ---
Author Organization [facility] Address [address] [place] [address] Phone Care Team Providers Care Education Sales Consultant Name Role Phone Paula Robles DERMATOLOGY PHYSICIAN Primary Care Provider + Zeeshan Rain MD Unavailable [phone] [facility] edmondsAddy MD PhD Unavailable Ama Zavaleta MD Unavailable Katlin Martinez NP Unavailable [phone] Encounter Details Date Type Department Care Team (Late st Contact Info) Description 11/04/[address] Orders [address] [facility] ProviderBishop MD [address] [place] [address] Social History Tobacco Use Types Packs/Day Years Used Date Smoking Tobacco: Former Comments No Sex and Gender Information Value Date Recorded Sex Assigned at Not on file Legal Sex Female 1:02 AM TUBE SIZER OPERATOR Gender Identity Not on file Sexual Orientation Not on file documented as of this encounter Plan of Treatment Not on file documented as of this encounter Procedures Procedure Name Priority Date/Time Associated Diagnosis Comments GENERAL RADIOLOGY REPORT 11/04/2017 documented in this encounter Results * GENERAL RADIOLOGY REPORT (11/04/2017) Anatomical Region Laterality Modality Radiographic Rosalia ging Narrative 11/04/2017 Ordered by an unspecified provider. us Historical Provider MD PAREDES XR PROCEDURES Final R esult documented in this encounter Visit Diagnoses Not on filedocumented in this encounter Care Teams Education Sales Consultant Relationship Specialty Start Date End Date Paula Robles NP PCP - General 05/31/17 Zeeshan Rain MD Medical Oncologist/Oracle Specialist Medical Oncology 02/11/18 08/23/22 Addy Mathur MD PhD [address] [place] [address] Radiation Oncologist Radiation Oncology 03/10/18 Ama Zavaleta MD [address] [facility] [address] [place] [address] Medical Oncologist/Oracle Specialist Medical Oncology 10/20/22 Katlin Martinez NP [address] [place] [address] [place] [address] Nurse Practitioner 03/06/24 documented as of this encounter
--- OUTSIDE RECORDS SUMMARY | 2024-08-06 17:37 | XMS_ITS | Encounter Summary ---
Author Organization [facility] Healthcare Address [address] [place] [address] Care Team Providers Care Printed Circuit Designer Name Role Phone Travis Paula Eleni TEACHING ASSOCIATE Primary Care Provider + Encounter Details Date Type Department Care Team (Late st Contact Info) Description 09/20/2017 Orders Only RAD ONC TREATMENTS Miscellaneous, Not In File Social History Tobacco Use Types Packs/Day Years Used Date Smoking Tobacco: Never Assessed Comments Unknown Sex and Gender Information Value Date Recorded Sex Assigned at Not on file Legal Sex Female 1:02 AM SPACE OFFICER Gender Identity Not on file Sexual Orientation Not on file documented as of this encounter Plan of Treatment Not on file documented as of this encounter Procedures Procedure Name Priority Date/Time Associated Diagnosis Comments RAD ONC ARIA SESSION SUMMARY 09/20/2017 1:20 PM SPACE OFFICER documented in this encounter Results * RAD ONC ARIA SESSION SUMMARY (09/20/2017 1:20 PM SPACE OFFICER) Course Name [id number] ARIA Course Plan Date 09/09/2017 6:49 AM ARIA Elapsed Days 7 ARIA Treatment Site BRAIN_dpv ARIA Dose Given To Date (cGy) 1,500 ARIA Session Dosage Given (cGy) 250 ARIA Plan ID WHOLE BRAIN ARIA Fractions Treated 6 ARIA Prescribed Dose Per Fraction (cGy) 250 ARIA Prescribed Total Dose (cGy) 2,500 ARIA 09/20/2017 1:20 PM SPACE OFFICER us Not In File Miscellaneous RADIATION ONCOLOGY ORD ERABLES Final Result ARIA documented in this encounter Visit Diagnoses Not on filedocumented in this encounter Care Teams Printed Circuit Designer Relationship Specialty Start Date End Date Paula Robles NP PCP - General 05/31/17 documented as of this encounter
--- OUTSIDE RECORDS SUMMARY | 2024-08-06 17:37 | XMS_ITS | Encounter Summary ---
Author Organization [facility] Healthcare Address [address] [place] [address] Care Team Providers Care Frame Table Operator Name Role Phone Paula Robles FUNERAL COUNSELOR Primary Care Provider + Encounter Details Date Type Department Care Team (Late st Contact Info) Description 09/08/2017 Orders Only [facility] [address] [place] [address] Brittney Lopez RT Social History Tobacco Use Types Packs/Day Years Used Date Smoking Tobacco: Never Assessed Comments Unknown Sex and Gender Information Value Date Recorded Sex Assigned at Not on file Legal Sex Female 1:02 AM DIGITAL CONTENT SPECIALIST Gender Identity Not on file Sexual Orientation Not on file documented as of this encounter Plan of Treatment Not on file documented as of this encounter Visit Diagnoses Not on filedocumented in this encounter Care Teams Frame Table Operator Relationship Specialty Start Date End Date Paula Robles NP PCP - General 05/31/17 documented as of this encounter
--- OUTSIDE RECORDS SUMMARY | 2024-08-06 17:37 | XMS_ITS | Encounter Summary ---
Author Organization [facility] Healthcare Address [address] [place] [address] Care Team Providers Care Lunchroom Monitor Name Role Phone Philip Robleselle Eleni PRODUCTION EXPERT Primary Care Provider + Carl Rain MD Unavailable [phone] Reason for Visit * Oncology (Routine) - Closed Specialty Diagnoses / Procedures Referred By Alan bangura Referred To Contact Radiology Diagnoses Malignant neoplasm of upper lobe of right lung (HCC) Procedure Reason: CA OF BRONCHUS OF RIGHT UPPER LOBE Ordering Provider: [id number] RAIN Procedures CT CHEST ABDOMEN W CONTRAST CT CHEST ABDOMEN W CONTRAST Carl Rain MD Phone: tel: fax: [facility] [address] [place] [address] Phone: tel: fax: Referral ID Status Reason Start Date Expiration Date Visits Re quested Visits Authorized [id number] Closed 02/11/2018 03/27/2018 1 1 Encounter Details Date Type Department Care Team (Latest Contact Info) Description 02/11/2018 1:22 PM CDT - 02/11/2018 11:59 PM CDT Hospital Encounter [facility]) [address] [place] [id number] Carl Rain MD [address] [place] [address] Malignant neoplasm of upper lobe of right lung (CMS/HCC) Discharge Disposition: Discharge to home or self care Social History Tobacco Use Types Packs/Day Years Used Date Smoking Tobacco: Former Comments No Sex and Gender Information Value Date Recorded Sex Assigned at Not on file 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 60 tablet 01/10/2018 8 predniSONE (DELTASONE) 20 mg tablet TK [...] Date/Time Associated Diagnosis Comments CT CHEST ABDOMEN W CONTRAST Schedule Routine, Read Routine (OP Routine) 02/11/2018 1:53 PM CDT Malignant neoplasm of upper lobe of right lung (CMS/HCC) documented in this encounter Results * CT Chest Abdomen W Contrast (02/11/2018 1:53 PM CDT) Anatomical Region Laterality Modality Body N/A Computed Tomogra phy 02/11/2018 2:36 PM CDT Impressions 02/11/2018 3:00 PM CDT 1. ??Evolving right lung post radiation treatment changes. 2. ??No evidence of metastatic disease within the chest or abdomen. Electronically signed by: Ann Herron M.D. 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 COMPARISON: 12/16/2017 FINDINGS: ?? Chest: No axillary, supraclavicular, or mediastinal lymphadenopathy. ??Heart size is normal. ??There is unchanged tiny pericardial fluid or thickening. Redemonstrated is right hemithorax volume loss. ??There is persistent right middle lobe atelectasis. ??There is slightly improved septal line thickening, traction bronchiectasis, and groundglass opacification, compatible with evolving postradiation changes. ??There is unchanged soft tissue thickening along the right hilum. ??No new pulmonary nodules. ??No pleural effusion or pneumothorax. Abdomen: The liver is normal without focal hepatic lesion. ??No intra-extrahepatic biliary duct dilatation. ??The portal vein is patent. ??Multiple gallstones are present. ??No evidence of acute cholecystitis. ??The spleen, bilateral adrenal glands, and pancreas are normal. ??The kidneys enhance symmetrically without hydronephrosis. ??There are bilateral hypoattenuating renal lesions, likely cysts. No bowel obstruction. ??No retroperitoneal lymphadenopathy. ??No suspicious osseous lesions. 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 COMPARISON: 12/16/2017 FINDINGS: Chest: No axillary, supraclavicular, or mediastinal lymphadenopathy. Heart size is normal. There is unchanged tiny pericardial fluid or thickening. Redemonstrated is right hemithorax volume loss. There is persistent right middle lobe atelectasis. There is slightly improved septal line thickening, traction bronchiectasis, and groundglass opacification, compatible with evolving postradiation changes. There is unchanged soft tissue thickening along the right hilum. No new pulmonary nodules. No pleural effusion or pneumothorax. Abdomen: The liver is normal without focal hepatic lesion. No intra-extrahepatic biliary duct dilatation. The portal vein is patent. Multiple gallstones are present. No evidence of acute cholecystitis. The spleen, bilateral adrenal glands, and pancreas are normal. The kidneys enhance symmetrically without hydronephrosis. There are bilateral hypoattenuating renal lesions, likely cysts. No bowel obstruction. No retroperitoneal lymphadenopathy. No suspicious osseous lesions. IMPRESSION: 1. Evolving right lung post radiation treatment changes. 2. No evidence of metastatic disease within the chest or abdomen. Electronically signed by: Ann Herron M.D. PHD Carl Rain MD IMG CT PROCEDURES Sada [...] intravenous, Once in imaging, contrast, Starting on Wed02/11/18 at 1350, For 1 dose Given 02/11/2018 1:54 PM CDT 125 mL documented in this encounter Orders Medications Ordered That Adam ht Not Have Been Administered Count Last Ordered Date First Ordered Date ioversol (OPTIRAY 350) syrin ge syringe 125 mL 1 02/11/2018 documented in this encounter Care Teams Lunchroom Monitor Relationship Specialty Start Date End Date Paula Robels NP PCP - General 05/31/17 Carl Rain MD Medical Oncologist/Community Educator Medical Oncology 02/11/18 08/23/22 documented as of this encounter
--- OUTSIDE RECORDS SUMMARY | 2024-08-06 17:37 | XMS_ITS | Encounter Summary ---
Author Organization [facility] Address [address] [place] [address] Phone Care Team Providers Care Database Consultant Name Role Phone Paula Robles NP Primary Care Provider + Zeeshan Rain MD Unavailable [phone] Reason for Referral * Diagnostic Imaging (Routine) - Closed Specialty Diagnoses / Procedures Referred By Contac t Referred To Contact Radiology Diagnoses Cancer of bronchus of right upper lobe (HCC) Procedures CT Chest Abdomen Pelvis W Contrast Zeeshan Rain MD Phone: tel: fax: [address] [address] Referral ID Status Reason Start Date Expiration Date Visits Re quested Visits Authorized [id number] Closed 02/14/2018 08/26/2019 1 1 Encounter Details Date Type Department Care Team (Late st Contact Info) Description 02/14/2018 1:20 PM CDT Office Visit [facility] [address] [facility] [address] [place] [address] Zeeshan Rain MD [address] [place] [address] Cancer of bronchus of right upper lobe (CMS/HCC) (Primary Dx) Social History Tobacco Use Types Packs/Day Years Used Date Smoking Tobacco: Former Smokeless Tobacco: Never Comments No Sex and Gender Information Value Date Recorded Sex Assigned at Not on file 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 Gender Identity Not on file Sexual Orientation Not on file documented as of this encounter Last Filed Vital Signs Vital Sign Reading Time Taken Comments Blood Pressure 126/83 02/14/2018 12:55 PM CDT Pulse 103 02/14/2018 12:55 PM CDT Temperature 37 ??C (98.6 ??F) 02/14/2018 12:55 PM CDT Respiratory Rate 20 02/14/2018 12:55 PM CDT Oxygen Saturation 93% 02/14/2018 12:55 PM CDT Inhaled Oxygen Concentration - - Weight 103.6 kg (228 lb 8 oz) 02/14/2018 12:55 P M CDT Height - - Body Mass Index 43.17 07/16/2017 12:42 PM 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 60 tablet 2 02/14/2018 07/26/2018 documented in this encounter Progress Notes * Zeeshan Rain MD - 02/14/2018 1:20 PM CDT 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 Tumor specimen demonstrates CD56, synaptophysin, cytokeratin, and TTF positivity. TREATMENT: 1. Concurrent chemoradiation with carboplatin and etoposide with radiation from 06/21/2017 to 08/03/2017, and chemotherapy from 05/28/2017 to 08/05/2017. 2. Prophylactic whole-brain radiation in 10 fractions from 09/13/2017 to 09/24/2017. Interval History: Gaby Morgan presents for a follow-up visit today. Following her previous visit she was treatedfor a upper respiratory tract viral infection/possible exacerbation of COPD with steroids and antibiotics, by her primary care physician, with resolution of her symptoms. Her scans today show post treatment changes without evidence of progression. She mentions being fatigued ever since she completed whole-brain radiation, although this seems to be gradually improving with time. Past Medical History: 1. COPD/asthma. 2. History of community-acquired pneumonia. 3. Radiographic findings of pulmonary hypertension on CT scan. Medications: Reviewed current medication list. Please refer to medical record for complete list of medications. Allergies: No Known Allergies Review of Systems: All other systems negative Vitals: BP: 126/83 Temp: 37 ??C (98.6 ??F) Temp src: Oral Pulse: 103 Resp: 20 SpO2: 93 % Weight: 103.6 kg (228 lb 8 oz) Physical Exam: General: Alert, awake and [...] CBC: Lab Results Component Value Date/Time WBC 5.2 02/14/2018 12:42 PM HGB 13.0 02/14/2018 12:42 PM HCT 38.7 02/14/2018 12:42 PM MCV 94.6 02/14/2018 12:42 PM NEUTROABS 3.1 02/14/2018 12:42 PM CMP: Lab Results Component Value Date/Time SODIUM 142 02/14/2018 12:35 PM POTASSIUM 4.1 02/14/2018 12:35 PM CO2 31 02/14/2018 12:35 PM BUNSER 9 02/14/2018 12:35 PM GLUCOSE 101 02/14/2018 12:35 PM CREATININE 0.82 02/14/2018 12:35 PM CALCIUM 9.5 02/14/2018 12:35 PM CHLORIDE 103 02/14/2018 12:35 PM ALBUMIN 3.9 02/14/2018 12:35 PM AST 16 02/14/2018 12:35 PM ALT 18 02/14/2018 12:35 PM ALKPHOS 84 02/14/2018 12:35 PM BILITOT 0.4 02/14/2018 12:35 PM PROT 7.4 02/14/2018 12:35 PM ANIONGAP 8 02/14/2018 12:35 PM Radiology: Recent scans on personal review, demonstrate post treatment changes with right hilar thickening, and no evidence of progression. Assessment and Plan: Gaby Morgan is a 67-year-old lady with limited stage small cell lung cancer for which she received concurrent chemoradiation followed by prophylactic cranial irradiation. Her scans today show noevidence of progression. It is likely that her fatigue is related to whole-brain radiation therapy.At this time we will plan on seeing her back in 8 weeks with scans she knows to contact us with anyquestions, concerns or symptoms in the interim. She plans to follow up with her primary care physician regarding the management of her hypokalemia and COPD. Zeeshan Rain MD Laborer Tree Tappingtuber helper Section of Medical Oncology [facility] documented in this encounter Plan of Treatment Not on file documented as of this encounter Results * CBC with auto differential (04/18/2018 10:22 AM CDT) WBC 4.8 3.8 - 9.8 K/cumm ARSENIO BELLA Comment:Testing performed by : [facility], [address] [facility] [phone] Hgb 13.8 12.1 - 15.1 g/dL ARSENIO BELLA Comment:Testing performed by : [facility], [address] [facility] [phone] Hct 41.3 36.1 - 44.3 % ARSENIO BELLA Comment:Testing performed by : [facility], [facility] [phone] Plt 214 140 - 440 K/cumm ARSENIO BELLA Comment:Testing performed by : [facility], [address] [place] [phone] MPV 7.6 6.8 - 10.4 fL ARSENIO BELLA Comment:Testing performed by : [facility], [address] [place], [place] [phone] RBC 4.40 3.90 - 5.00 M/cumm ARSENIO BELLA Comment:Testing performed by : [facility], [address] [place], [place] [phone] MCV 93.8 80.0 - 97.6 fL ARSENIO BELLA Comment:Testing performed by : [facility], [address] [place], [place] [phone] MCH 31.4 26.7 - 33.7 pg ARSENIO BELLA Comment:Testing performed by : [facility], [address] [place], [place] [phone] MCHC 33.5 32.7 - 35.5 g/dL ARSENIO BELLA Comment:Testing performed by : [facility], [address] [place], [place] [phone] RDW CV 13.8 11.8 - 14.6 % [facility]ENIO [facility] Comment:Testing performed by : [facility], [address] [place] [phone] NRBC abs 0.01 0.00 - 0.01 K/cumm ARSENIO BELLA Comment:Testing performed by : [facility], [address] [place] [phone] Blood specimen (specimen) 04/18/2018 10:22 AM CDT 04/18/2018 10:23 AM CDT Narrative ARSENIO BELLA - 04/18/2018 10:29 AM CDT us Zeeshan Rain MD LAB BLOOD ORDERABLES F inal Result ARSENIO BELLA [facility] Department [place] [address] * Comprehensive metabolic panel (04/18/2018 10:21 AM CDT) Sodium 143 135 - 145 mmol/L [facility] Potassium, pl 3.9 3.3 - 4.9 mmol/L [facility] Chloride 103 97 - 110 mmol/L [facility] CO2 32 22 - 32 mmol/L [facility] Anion gap 8 2 - 15 mmol/L [facility] BUN 12 8 - 25 mg/dL [facility] Creatinine 0.70 0.60 - 1.10 mg/dL [facility] Glucose 108 70 - 199 mg/dL [facility] [...] 2017. Calcium 9.5 8.5 - 10.3 mg/dL [facility] Bilirubin, total 0.4 0.1 - 1.2 mg/dL [facility] Protein, pl 7.4 6.5 - 8.5 g/dL [facility] Albumin 3.9 3.5 - 5.0 g/dL [facility] Alk phos 93 40 - 130 Units/L [facility] ALT 17 7 - 45 Units/L [facility] AST 22 10 - 45 Units/L [facility] Blood specimen (specimen) 04/18/2018 10:21 AM CDT 04/18/2018 10:46 AM CDT Narrative [facility] - 04/18/2018 11:21 AM CDT us Zeeshan Rain MD LAB BLOOD ORDERABLES F inal Result [facility] Department [place] [address] * CT Chest Abdomen Pelvis W Contrast [...] upper lobe (HCC) documented in this encounter Discontinued Medications Medication Sig Discontinue Reason Start Date End Da te potassium chloride ER (KLOR-CON,K-DUR) 20 mEq CR tablet Take 1 tablet (20 mEq total) by mouth 2 (two) times a day. Reorder 01/10/2018 02/14/2018 documented as of this encounter Historical Medications * This list may reflect changes made after this encounter. simvastatin (ZOCOR) 20 mg tablet TK 1 T PO HS 0 12/14/2017 multivitamin tabletIndications:V itamin Deficiency Prevention daily. montelukast (SINGULAIR) 10 mg tablet TK 1 T PO D 2 01/28/2018 loratadine (CLARITIN) 10 mg tablet TK 1 T PO QAM 0 12/14/2017 ipratropium-albuter ol (DUO-NEB) 0.5-2.5 mg/3 mL nebulizer solutionIndications :Chronic Obstructive Pulmonary Disease with Bronchospasms 4 gm mist. inhal furosemide (LASIX) 40 mg tablet TK 1 T PO QD 1 12/13/2017 prochlorperazine (COMPAZINE) 10 mg tablet 1 tab po q 6-8 hrs prn nausea. Try this medication second 05/24/2017 3 predniSONE (DELTASONE) 5 mg tablet take 8 tabs (40 mg) for 3 days and decrease by 5 mg q 3 days 10/25/2017 9 predniSONE (DELTASONE) 20 mg tablet TK 1 T PO BID FOR 7 DAYS 0 01/11/2018 3 ondansetron (ZOFRAN) 8 mg tablet TAKE 1 TABLET EVERY 8 HOURS PRN nausea,try this medication FIRST 05/24/2017 3 methylPREDNISolone (MEDROL DOSEPACK) 4 mg Dosepack TK UTD 0 01/18/2018 9 LORazepam (ATIVAN) 0.5 mg tablet 1 tab po q 6-8 hours prn nausea. Try this medication third 05/24/2017 3 COMBIVENT RESPIMAT 20-100 mcg/actuation inhalerIndications: Chronic Obstructive Pulmonary Disease with Bronchospasms INL 1 PUFF PO QID 5 01/11/2018 3 ADVAIR DISKUS 250-50 mcg/dose diskus inhaler INL 1 PUFF PO TWICE DAILY. RM AFTER U 5 01/11/2018 3 fluticasone (FLONASE) 50 mcg/actuation nasal spray daily. 3 amoxicillin-clavula nehemias (AUGMENTIN) 875-125 mg per tablet TK 1 T PO Q 12 H FOR 10 DAYS 0 01/11/2018 2 albuterol HFA (PROVENTIL HFA,VENTOLIN HFA,PROAIR HFA) 90 mcg/actuation inhaler every 4 hours. 3 added in this encounter Orders Appointment Requests Count Last Ordered Date Fi rst Ordered Date ONCBCN CLINIC APPOINTMENT REQUEST 1 018 ONCBCN LAB APPOINTMENT 1 04/18/2018 documented in this encounter Care Teams Database Consultant Relationship Specialty Start Date End Date Paula Robles NP PCP - General 05/31/17 Zeeshan Rain MD Medical Oncologist/Microfilm Technician Medical Oncology 02/11/18 08/23/22 documented as of this encounter
--- OUTSIDE RECORDS SUMMARY | 2024-08-06 17:37 | XMS_ITS | Encounter Summary ---
Author Organization [facility] Address [address] [place] [address] Phone Care Team Providers Care Tire Cord Weaver Name Role Phone Paula Robles Eleni MIGRATION AGENT Primary Care Provider + Encounter Details Date Type Department Care Team (Late st Contact Info) Description 01/14/2018 Telephone [facility] [address] [facility] 7th [place] [address] [place] [phone] Joshua Lynch RN Social History Tobacco Use Types Packs/Day Years Used Date Smoking Tobacco: Former Comments No Sex and Gender Information Value Date Recorded Sex Assigned at Not on file 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 She states she feels betterless wheezing and less congested. She also asked me if she should get a mammogram (last one 3 yearsago) and a colonoscopy. She said these were recommended by Medicaid and is wondering if she needs them or should get them? documented in this encounter Plan of Treatment Not on file documented as of this encounter Visit Diagnoses Not on filedocumented in this encounter Care Teams Tire Cord Weaver Relationship Specialty Start Date End Date Paula Robles NP PCP - General 05/31/17 documented as of this encounter
--- OUTSIDE RECORDS SUMMARY | 2024-08-06 17:37 | XMS_ITS | Encounter Summary ---
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 Gender Identity Not on file Sexual Orientation Not on file documented as of this encounter Plan of Treatment Not on file documented as of this encounter Procedures Procedure Name Priority Date/Time Associated Diagnosis Comments RAD ONC ARIA SESSION SUMMARY 08/03/2017 8:00 AM KEY ACCOUNT REPRESENTATIVE documented in this encounter Results * RAD ONC ARIA SESSION SUMMARY (08/03/2017 8:00 AM KEY ACCOUNT REPRESENTATIVE) Course Name C1 RT LUNG 2017 ARIA Course Plan Date 06/14/2017 1:33 PM ARIA Elapsed Days 43 ARIA Treatment Site PTV lung ARIA Dose Given To Date (cGy) 6,000 ARIA Session Dosage Given (cGy) 200 ARIA Plan ID R LUNG_REPLA N ARIA Fractions Treated 17 ARIA Prescribed Dose Per Fraction (cGy) 200 ARIA Prescribed Total Dose (cGy) 3,400 ARIA 08/03/2017 8:00 AM KEY ACCOUNT REPRESENTATIVE us Not In File Miscellaneous RADIATION ONCOLOGY ORD ERABLES Final Result ARIA documented in this encounter Visit Diagnoses Not on filedocumented in this encounter Care Teams Etcher Electrolytic Relationship Specialty Start Date End Date Paula Robles NP PCP - General 05/31/17 documented as of this encounter
--- OUTSIDE RECORDS SUMMARY | 2024-08-06 17:37 | XMS_ITS | Encounter Summary ---
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 Gender Identity Not on file Sexual Orientation Not on file documented as of this encounter Plan of Treatment Not on file documented as of this encounter Procedures Procedure Name Priority Date/Time Associated Diagnosis Comments RAD ONC ARIA SESSION SUMMARY 09/22/2017 1:13 PM SPRINKLING SYSTEM INSTALLER documented in this encounter Results * RAD ONC ARIA SESSION SUMMARY (09/22/2017 1:13 PM SPRINKLING SYSTEM INSTALLER) Course Name [id number] ARIA Course Plan Date 09/09/2017 6:49 AM ARIA Elapsed Days 9 ARIA Treatment Site BRAIN_dpv ARIA Dose Given To Date (cGy) 2,000 ARIA Session Dosage Given (cGy) 250 ARIA Plan ID WHOLE BRAIN ARIA Fractions Treated 8 ARIA Prescribed Dose Per Fraction (cGy) 250 ARIA Prescribed Total Dose (cGy) 2,500 ARIA 09/22/2017 1:13 PM SPRINKLING SYSTEM INSTALLER us Not In File Miscellaneous RADIATION ONCOLOGY ORD ERABLES Final Result ARIA documented in this encounter Visit Diagnoses Not on filedocumented in this encounter Care Teams Nutritionists Relationship Specialty Start Date End Date Paula Robles NP PCP - General 05/31/17 documented as of this encounter
--- OUTSIDE RECORDS SUMMARY | 2024-08-06 17:38 | XMS_ITS | Encounter Summary ---
Author Organization [facility] Healthcare Address [address] [place] [address] Care Team Providers Care Terrazzo Worker Apprentice Name Role Phone Paula Robles Eleni FUNERAL HOME LOCATION MANAGER Primary Care Provider + Encounter Details Date Type Department Care Team (Latest Contact Info) Description 07/16/2017 11:55 AM TELEPHONE OPERATOR CHIEF - 07/16/2017 11:59 PM TELEPHONE OPERATOR CHIEF Hospital Encounter 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) Discharge Disposition: Discharge to home or self care Social History Tobacco Use Types Packs/Day Years Used Date Smoking Tobacco: Never Assessed Comments Unknown Sex and Gender Information Value Date Recorded Sex Assigned at Not on file Legal Sex Female 1:02 AM TELEPHONE OPERATOR CHIEF Gender Identity Not on file Sexual Orientation [...] CONTRAST Schedule Routine, Read Routine (OP Routine) 07/16/2017 1:12 PM TELEPHONE OPERATOR CHIEF 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) EGFR STAT 07/16/2017 12:13 PM TELEPHONE OPERATOR CHIEF EGFR STAT 07/16/2017 12:13 PM TELEPHONE OPERATOR CHIEF DIFFERENTIAL AUTO Routine 07/16/2017 12: 13 PM TELEPHONE OPERATOR CHIEF CREATININE, WHOLE BLOOD STAT 07/16/2017 12:13 PM TELEPHONE OPERATOR CHIEF CBC WITH AUTO DIFFERENTIAL Routine 07/16/2017 12:13 PM TELEPHONE OPERATOR CHIEF COMPREHENSIVE METABOLIC PANEL STAT 07/16/2017 12:13 PM TELEPHONE OPERATOR CHIEF DISCHARGE LABORATORY CUMULATIVE REPORT 07/16/2017 12:00 AM TELEPHONE OPERATOR CHIEF documented in this encounter Results * MRI Brain W WO Contrast (07/16/2017 1:12 PM TELEPHONE OPERATOR CHIEF) Anatomical Region Laterality Modality Head and Neck N/A Magnetic Resonan ce Impressions 07/16/2017 4:27 PM TELEPHONE OPERATOR CHIEF 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 NO ACUTE INTRACRANIAL PATHOLOGY. NO INTRADURAL METASTASES. Electronically signed by: Alejandra Goins M.D. Narrative 07/16/2017 4:27 PM TELEPHONE OPERATOR CHIEF RESULT: Examination: ??MRI BRAIN W WO CONTRAST Date: 07/16/2017 12:15 PM Clinical History: ?? History of CA lung. ??Lightheaded. ??Follow-up. Technique: MRI brain obtained using multiplanar multisequence images using 20 mL of Dotarem.. Comparison: MRI brain 05/26/2017. Findings: The ventricles sulci and cisterns are within normal limits for age and unchanged. ??There is mild degree small punctate and patchy FLAIR/T2 W hyperintensities in the grewal radiata, centrum semiovale, frontoparietal subcortical white matter, left external capsule and periatrial region unchanged. ??Chronic lacunar infarcts in the left caudate and lentiform nucleus are unchanged. ??No acute infarct is seen on the diffusion images. ??There is no evidence for acute hemorrhage. ??No acute believed that no abnormal intracranial enhancement is seen. There are flow voids in the basilar cavernous internal carotid arteries and superior sagittal sinus. 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 No asymmetry of the orbits is seen. ??There is no pituitary enlargement. ??The cerebellar tonsils extend to the plane of the foramen magnum. ??The paranasal sinuses and mastoids are clear. ??The calvarial marrow is unremarkable. Procedure Note Alejandra Goins MD - 07/16/2017 RESULT: Examination: MRI BRAIN W WO CONTRAST Date: 07/16/2017 12:15 PM Clinical History: History of CA lung. Lightheaded. Follow-up. Technique: MRI brain obtained using multiplanar multisequence images using 20 mL of Dotarem.. Comparison: MRI brain 05/26/2017. Findings: The ventricles sulci and cisterns are within normal limits for age and unchanged. There is mild degree small punctate and patchy FLAIR/T2 W hyperintensities in the grewal radiata, centrum semiovale, frontoparietal subcortical white matter, left external capsule and periatrial region unchanged. Chronic lacunar infarcts in the left caudate and lentiform nucleus are unchanged. No acute infarct is seen on the diffusion images. There is no evidence for acute hemorrhage. No acute believed that no abnormal intracranial enhancement is seen. There are flow voids in the basilar cavernous internal carotid arteries and superior sagittal sinus. 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 No asymmetry of the orbits is seen. There is no pituitary enlargement. The cerebellar tonsils extend to the plane of the foramen magnum. The paranasal sinuses and mastoids are clear. The calvarial marrow is unremarkable. 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 NO ACUTE INTRACRANIAL PATHOLOGY. NO INTRADURAL METASTASES. Electronically signed by: Alejandra Goins M.D. Zeeshan Rain MD IMG MRI PROCEDURES Fin al Result * eGFR (07/16/2017 12:13 PM TELEPHONE OPERATOR CHIEF) eGFR 88 mL/min/1.7 3 m2 [facility] Comment: Interpretive Data Reference Interval Normal ?>/= 90 mL/min/1.73m2 Mildly decreased* ? 60 - 89 mL/min/1.73m2 Mildly to moderately decreased ?45 - 59 mL/min/1.73m2 Moderately to severely decreased ??30 - 44 mL/min/1.73m2 Severely decreased ?15 - 29 mL/min/1.73m2 Kidney Failure ?< 15 ??mL/min/1.73m2 *Relative to young adult level If -Tajik multiply value by 1.16. Estimated glomerular filtration rate is determined by the CKD-EPI equation recommended by the National Kidney Foundation (KDIGO 2012 Clinical Practice Guideline for the Evaluation and Management of Chronic Kidney Disease. Kidney Intnl Suppl Aug 2012;3:1). The CKD-EPI equation should not be used for patients with unstable renal function and has not been validated in children and those over 70. Current interpretive data was last reviewed 2016. Blood specimen (specimen) 07/16/2017 12:13 PM TELEPHONE OPERATOR CHIEF 07/16/2017 12:31 PM TELEPHONE OPERATOR CHIEF Narrative [facility] - 07/16/2017 12:55 PM TELEPHONE OPERATOR CHIEF Zeeshan Rain MD LAB BLOOD ORDERABLES F inal Result [facility] [address] Department [place] [address] * (ABNORMAL) Comprehensive metabolic panel (07/16/2017 12:13 PM TELEPHONE OPERATOR CHIEF) Sodium 139 135 - 145 mmol/L [facility] Potassium, pl 4.1 3.5 - 5.1 mmol/L [facility] CO2 35(H) 22 - 32 mmol/L [facility] BUN 11 8 - 24 mg/dL [facility] Glucose 114 70 - 199 mg/dL [facility] Comment: Interpretive Data Fasting glucose >/= 126 [...] interpretive data was last revised 2017. Creatinine 0.71 0.60 - 1.30 mg/dL [facility] Calcium 9.1 8.4 - 10.5 mg/dL [facility] Chloride 96(L) 100 - 114 mmol/L [facility] Albumin 2.9(L) 3.2 - 4.8 g/dL [facility] AST 19 7 - 40 Units/L [facility] ALT 17 1 - 45 Units/L [facility] Alk phos 79 30 - 110 Units/L [facility] Bilirubin, total 0.60 0.10 - 1.30 mg/dL [facility] Protein, pl 6.4 6.0 - 8.3 g/dL [facility] Anion gap 12 8 - 16 mmol/L [facility] Blood specimen (specimen) 07/16/2017 12:13 PM TELEPHONE OPERATOR CHIEF 07/16/2017 12:21 PM TELEPHONE OPERATOR CHIEF Narrative [facility] - 07/16/2017 12:55 PM TELEPHONE OPERATOR CHIEF us Zeeshan Rain MD LAB BLOOD ORDERABLES F inal Result Performing Organization Address [facility] Co de Phone Number [facility] [address] [facility] [place] [address] * eGFR (07/16/2017 12:13 PM TELEPHONE OPERATOR CHIEF) Pathologist [facility] eGFR >60 mL/min/1.73 m2 [facility] Blood specimen (specimen) 07/16/2017 12:13 PM TELEPHONE OPERATOR CHIEF 07/16/2017 12:30 PM TELEPHONE OPERATOR CHIEF Narrative [facility] - 07/16/2017 12:38 PM TELEPHONE OPERATOR CHIEF Zeeshan Rain MD LAB BLOOD ORDERABLES F inal Result Performing Organization Address [facility] Co de Phone Number [facility] [address] [place] [address] * (ABNORMAL) Creatinine, whole blood (07/16/2017 12:13 PM TELEPHONE OPERATOR CHIEF) [facility] Creatinine, bld 0.55(L) 0.60 - 1.30 mg/dL [facility] Blood specimen (specimen) 07/16/2017 12:13 PM TELEPHONE OPERATOR CHIEF 07/16/2017 12:13 PM TELEPHONE OPERATOR CHIEF Narrative [facility] - 07/16/2017 12:38 PM TELEPHONE OPERATOR CHIEF Zeeshan Rain MD LAB BLOOD ORDERABLES F inal Result Performing Organization Address [facility] Co de Phone Number [facility] [address] Department [place] [address] * (ABNORMAL) Differential, auto (07/16/2017 12:13 PM TELEPHONE OPERATOR CHIEF) Pathologist [facility] Neutrophil pct 69.5 % [facility] Imm gran pct 0.3 % [facility] Lymphocyte pct 26.3 % [facility] Monocyte pct 3.0 % [facility] Eosinophil pct 0.0 % [facility] Basophil pct 0.6 % [facility] Neutrophil abs 2.35 1.70 - 6.50 K/cumm [facility] Imm gran abs 0.01 0.00 - 0.10 K/cumm [facility] Lymphocyte abs 0.89 0.80 - 3.30 K/cumm [facility] Monocyte abs 0.10(L) 0.20 - 0.80 K/cumm [facility] Eosinophil abs 0.01 0.00 - 0.50 K/cumm [facility] Basophil abs 0.02 0.00 - 0.10 K/cumm [facility] Blood specimen (specimen) 07/16/2017 12:13 PM TELEPHONE OPERATOR CHIEF 07/16/2017 12:21 PM TELEPHONE OPERATOR CHIEF Narrative [facility] - 07/16/2017 12:33 PM TELEPHONE OPERATOR CHIEF Zeeshan Rain MD LAB BLOOD ORDERABLES F inal Result [facility] [address] Department [place] [address] * (ABNORMAL) CBC with auto differential (07/16/2017 12:13 PM TELEPHONE OPERATOR CHIEF) Pathologist [facility] WBC 3.38(L) 3.80 - 9.90 K/cumm [facility] RBC 3.24(L) 3.90 - 5.20 M/cumm [facility] Hgb 10.3(L) 11.9 - 15.5 g/dL [facility] Hct 31.5(L) 35.6 - 45.5 % [facility] MCV 97.2(H) 81.3 - 96.4 fL [facility] MCH 31.8 27.1 - 33.3 pg [facility] MCHC 32.7 32.3 - 35.7 g/dL [facility] RDW CV 13.5 11.1 - 14.9 % [facility] RDW SD 45.7 35.7 - 48.1 fL [facility] Plt 436(H) 150 - 400 K/cumm [facility] MPV 9.1 9.1 - 12.3 fL [facility] NRBC 0.0 0.0 - 0.2 % [facility] NRBC abs 0.00 0.00 - 0.01 K/cumm [facility] Blood specimen (specimen) 07/16/2017 12:13 PM TELEPHONE OPERATOR CHIEF 07/16/2017 12:21 PM TELEPHONE OPERATOR CHIEF Narrative [facility] - 07/16/2017 12:33 PM TELEPHONE OPERATOR CHIEF Zeeshan Rain MD LAB BLOOD ORDERABLES F inal Result [facility] [address] [place] [address] * DISCHARGE LABORATORY CUMULATIVE REPORT (07/16/2017 12:00 AM TELEPHONE OPERATOR CHIEF) Narrative 07/16/2017 12:00 AM TELEPHONE OPERATOR CHIEF Ordered by an unspecified provider. Historical Provider LAB BLOOD ORDERABLES Sada l Result documented in this encounter Visit Diagnoses Diagnosis Primary cancer of bronchus of right upper lobe (HCC) documented in this encounter Administered Medications Inactive Administered Medications - up to 3 most recent administrations Medication Order MAR Action Action Date Dose Rate Site gadoterate meglumine (DOTAREM) 0.5 mmol/mL injection 20 mL 20 mL, intravenous, Once in imaging, contrast, Starting on Wed07/16/17 at 1308, For 1 dose Given 07/16/2017 12:55 PM TELEPHONE OPERATOR CHIEF 20 mL Right Antecubital documented in this encounter Orders Medications Ordered That Adam ht Not Have Been Administered Count Last Ordered Date First Ordered Date gadoterate meglumine (DOTARE M) 0.5 mmol/mL injection 20 mL 1 07/16/2017 documented in this encounter Care Teams Terrazzo Worker Apprentice Relationship Specialty Start Date End Date Paula Robles NP PCP - General 05/31/17 documented as of this encounter
--- OUTSIDE RECORDS SUMMARY | 2024-08-06 17:38 | XMS_ITS | Encounter Summary ---
Author Organization [facility] Healthcare Address [address] [place] [address] Care Team Providers Care On Site Services Specialist Name Role Phone Paula Robles Eleni BUFFER MACHINE Primary Care Provider + Encounter Details Date Type Department Care Team (Late st Contact Info) Description 07/14/2017 Orders Only RAD ONC TREATMENTS Miscellaneous, Not In File Social History Tobacco Use Types Packs/Day Years Used Date Smoking Tobacco: Never Assessed Comments Unknown Sex and Gender Information Value Date Recorded Sex Assigned at Not on file Legal Sex Female 1:02 AM ALLOPATHIC DOCTOR Gender Identity Not on file Sexual Orientation Not on file documented as of this encounter Plan of Treatment Not on file documented as of this encounter Procedures Procedure Name Priority Date/Time Associated Diagnosis Comments RAD ONC ARIA SESSION SUMMARY 07/14/2017 8:56 AM ALLOPATHIC DOCTOR documented in this encounter Results * RAD ONC ARIA SESSION SUMMARY (07/14/2017 8:56 AM ALLOPATHIC DOCTOR) Course Name C1 RT LUNG 2017 ARIA Course Plan Date 06/14/2017 1:33 PM ARIA Elapsed Days 23 ARIA Treatment Site PTV lung ARIA Dose Given To Date (cGy) 3,400 ARIA Session Dosage Given (cGy) 200 ARIA Plan ID R LUNG_REPLA N ARIA Fractions Treated 4 ARIA Prescribed Dose Per Fraction (cGy) 200 ARIA Prescribed Total Dose (cGy) 3,400 ARIA 07/14/2017 8:56 AM ALLOPATHIC DOCTOR us Not In File Miscellaneous RADIATION ONCOLOGY ORD ERABLES Final Result ARIA documented in this encounter Visit Diagnoses Not on filedocumented in this encounter Care Teams On Site Services Specialist Relationship Specialty Start Date End Date Paula Robles NP PCP - General 05/31/17 documented as of this encounter
--- OUTSIDE RECORDS SUMMARY | 2024-08-06 17:38 | XMS_ITS | Encounter Summary ---
Author Organization [facility] Healthcare Address [address] [place] [address] Care Team Providers Care Nurse Emergency Room Name Role Phone TravisPaula Eleni REDUCTION FURNACE OPERATOR Primary Care Provider + Encounter Details Date Type Department Care Team (Latest Contact Info) Description 06/09/2017 1:06 PM CDT - 06/09/2017 11:59 PM T Hospital Encounter [facility] [phone] Shawn Alberto MD [address] [place], [place] [id number] Discharge Disposition: Discharge to home or self care Social History Tobacco Use Types Packs/Day Years Used Date Smoking Tobacco: Never Assessed Comments Unknown Sex and Gender Information Value Date Recorded Sex Assigned at Not on file Legal Sex Female 1:02 AM DATA OFFICER Gender Identity Not on file Sexual [...] on filedocumented in this encounter Care Teams Nurse Emergency Room Relationship Specialty Start Date End Date Paula Robles NP PCP - General 05/31/17 documented as of this encounter
--- OUTSIDE RECORDS SUMMARY | 2024-08-06 17:38 | XMS_ITS | Encounter Summary ---
Author Organization [facility] Healthcare Address [address] [place] [address] Care Team Providers Care Social Psychologist Name Role Phone Paula Robles Eleni NOTEMAN Primary Care Provider + Encounter Details Date Type Department Care Team (Late st Contact Info) Description 07/23/2017 Orders Only RAD ONC TREATMENTS Miscellaneous, Not In File Social History Tobacco Use Types Packs/Day Years Used Date Smoking Tobacco: Never Assessed Comments Unknown Sex and Gender Information Value Date Recorded Sex Assigned at Not on file Legal Sex Female 1:02 AM MOLDING MACHINE OPERATOR Gender Identity Not on file Sexual Orientation Not on file documented as of this encounter Plan of Treatment Not on file documented as of this encounter Procedures Procedure Name Priority Date/Time Associated Diagnosis Comments RAD ONC ARIA SESSION SUMMARY 07/23/2017 1:58 PM MOLDING MACHINE OPERATOR documented in this encounter Results * RAD ONC ARIA SESSION SUMMARY (07/23/2017 1:58 PM MOLDING MACHINE OPERATOR) Course Name C1 RT LUNG 2017 ARIA Course Plan Date 06/14/2017 1:33 PM ARIA Elapsed Days 32 ARIA Treatment Site PTV lung ARIA Dose Given To Date (cGy) 4,800 ARIA Session Dosage Given (cGy) 200 ARIA Plan ID R LUNG_REPLA N ARIA Fractions Treated 11 ARIA Prescribed Dose Per Fraction (cGy) 200 ARIA Prescribed Total Dose (cGy) 3,400 ARIA 07/23/2017 1:58 PM MOLDING MACHINE OPERATOR us Not In File Miscellaneous RADIATION ONCOLOGY ORD ERABLES Final Result ARIA documented in this encounter Visit Diagnoses Not on filedocumented in this encounter Care Teams Social Psychologist Relationship Specialty Start Date End Date Paula Robles NP PCP - General 05/31/17 documented as of this encounter
--- OUTSIDE RECORDS SUMMARY | 2024-08-06 17:38 | XMS_ITS | Encounter Summary ---
Author Organization [facility] Healthcare Address [address] [place] [address] Care Team Providers Care Captain Airline Pilot Name Role Phone Paula Robles Eleni TURBINE ROOM ATTENDANT Primary Care Provider + Encounter Details Date Type Department Care Team (Late st Contact Info) Description 07/19/2017 Orders Only RAD ONC TREATMENTS Miscellaneous, Not In File Social History Tobacco Use Types Packs/Day Years Used Date Smoking Tobacco: Never Assessed Comments Unknown Sex and Gender Information Value Date Recorded Sex Assigned at Not on file Legal Sex Female 1:02 AM EPOXY FABRICATION SUPERVISOR Gender Identity Not on file Sexual Orientation Not on file documented as of this encounter Plan of Treatment Not on file documented as of this encounter Procedures Procedure Name Priority Date/Time Associated Diagnosis Comments RAD ONC ARIA SESSION SUMMARY 07/19/2017 2:00 PM EPOXY FABRICATION SUPERVISOR documented in this encounter Results * RAD ONC ARIA SESSION SUMMARY (07/19/2017 2:00 PM EPOXY FABRICATION SUPERVISOR) Course Name C1 RT LUNG 2017 ARIA Course Plan Date 06/14/2017 1:33 PM ARIA Elapsed Days 28 ARIA Treatment Site PTV lung ARIA Dose Given To Date (cGy) 4,000 ARIA Session Dosage Given (cGy) 200 ARIA Plan ID R LUNG_REPLA N ARIA Fractions Treated 7 ARIA Prescribed Dose Per Fraction (cGy) 200 ARIA Prescribed Total Dose (cGy) 3,400 ARIA 07/19/2017 2:00 PM EPOXY FABRICATION SUPERVISOR us Not In File Miscellaneous RADIATION ONCOLOGY ORD ERABLES Final Result ARIA documented in this encounter Visit Diagnoses Not on filedocumented in this encounter Care Teams Captain Airline Pilot Relationship Specialty Start Date End Date Paula Robles NP PCP - General 05/31/17 documented as of this encounter
--- OUTSIDE RECORDS SUMMARY | 2024-08-06 17:38 | XMS_ITS | Encounter Summary ---
Author Organization [facility] Healthcare Address [address] [place] [address] Care Team Providers Care Engineering Design Supervisor Name Role Phone Paula Robles Eleni POULTRY HUSBANDRY WORKER Primary Care Provider + Encounter Details Date Type Department Care Team (Late st Contact Info) Description 07/26/2017 Orders Only RAD ONC TREATMENTS Miscellaneous, Not In File Social History Tobacco Use Types Packs/Day Years Used Date Smoking Tobacco: Never Assessed Comments Unknown Sex and Gender Information Value Date Recorded Sex Assigned at Not on file Legal Sex Female 1:02 AM FURNACE BUILDER Gender Identity Not on file Sexual Orientation Not on file documented as of this encounter Plan of Treatment Not on file documented as of this encounter Procedures Procedure Name Priority Date/Time Associated Diagnosis Comments RAD ONC ARIA SESSION SUMMARY 07/26/2017 2:06 PM FURNACE BUILDER documented in this encounter Results * RAD ONC ARIA SESSION SUMMARY (07/26/2017 2:06 PM FURNACE BUILDER) Course Name C1 RT LUNG 2017 ARIA Course Plan Date 06/14/2017 1:33 PM ARIA Elapsed Days 35 ARIA Treatment Site PTV lung ARIA Dose Given To Date (cGy) 5,000 ARIA Session Dosage Given (cGy) 200 ARIA Plan ID R LUNG_REPLA N ARIA Fractions Treated 12 ARIA Prescribed Dose Per Fraction (cGy) 200 ARIA Prescribed Total Dose (cGy) 3,400 ARIA 07/26/2017 2:06 PM FURNACE BUILDER us Not In File Miscellaneous RADIATION ONCOLOGY ORD ERABLES Final Result ARIA documented in this encounter Visit Diagnoses Not on filedocumented in this encounter Care Teams Engineering Design Supervisor Relationship Specialty Start Date End Date Paula Robles NP PCP - General 05/31/17 documented as of this encounter
--- OUTSIDE RECORDS SUMMARY | 2024-08-06 17:38 | XMS_ITS | Encounter Summary ---
Author Organization [facility] Healthcare Address [address] [place] [address] Care Team Providers Care Community Center Coordinator Name Role Phone Paula Robles Eleni DRAFTER LANDSCAPE Primary Care Provider + Encounter Details Date Type Department Care Team (Late st Contact Info) Description 07/27/2017 Orders Only RAD ONC TREATMENTS Miscellaneous, Not In File Social History Tobacco Use Types Packs/Day Years Used Date Smoking Tobacco: Never Assessed Comments Unknown Sex and Gender Information Value Date Recorded Sex Assigned at Not on file Legal Sex Female 1:02 AM GLASS TOUGHENING OPERATOR Gender Identity Not on file Sexual Orientation Not on file documented as of this encounter Plan of Treatment Not on file documented as of this encounter Procedures Procedure Name Priority Date/Time Associated Diagnosis Comments RAD ONC ARIA SESSION SUMMARY 07/27/2017 1:58 PM GLASS TOUGHENING OPERATOR documented in this encounter Results * RAD ONC ARIA SESSION SUMMARY (07/27/2017 1:58 PM GLASS TOUGHENING OPERATOR) Course Name C1 RT LUNG 2017 ARIA Course Plan Date 06/14/2017 1:33 PM ARIA Elapsed Days 36 ARIA Treatment Site PTV lung ARIA Dose Given To Date (cGy) 5,200 ARIA Session Dosage Given (cGy) 200 ARIA Plan ID R LUNG_REPLA N ARIA Fractions Treated 13 ARIA Prescribed Dose Per Fraction (cGy) 200 ARIA Prescribed Total Dose (cGy) 3,400 ARIA 07/27/2017 1:58 PM GLASS TOUGHENING OPERATOR us Not In File Miscellaneous RADIATION ONCOLOGY ORD ERABLES Final Result ARIA documented in this encounter Visit Diagnoses Not on filedocumented in this encounter Care Teams Community Center Coordinator Relationship Specialty Start Date End Date Paula Robles NP PCP - General 05/31/17 documented as of this encounter
--- OUTSIDE RECORDS SUMMARY | 2024-08-06 17:38 | XMS_ITS | Encounter Summary ---
Author Organization [facility] Healthcare Address [address] [place] [address] Care Team Providers Care Printing Film Stripper Name Role Phone Paula Robles Eleni FRUIT CANNER Primary Care Provider + Encounter Details Date Type Department Care Team (Late st Contact Info) Description 07/15/2017 Orders Only RAD ONC TREATMENTS Miscellaneous, Not In File Social History Tobacco Use Types Packs/Day Years Used Date Smoking Tobacco: Never Assessed Comments Unknown Sex and Gender Information Value Date Recorded Sex Assigned at Not on file Legal Sex Female 1:02 AM MOTION PICTURE SET WORKER Gender Identity Not on file Sexual Orientation Not on file documented as of this encounter Plan of Treatment Not on file documented as of this encounter Procedures Procedure Name Priority Date/Time Associated Diagnosis Comments RAD ONC ARIA SESSION SUMMARY 07/15/2017 2:01 PM MOTION PICTURE SET WORKER documented in this encounter Results * RAD ONC ARIA SESSION SUMMARY (07/15/2017 2:01 PM MOTION PICTURE SET WORKER) Course Name C1 RT LUNG 2017 ARIA Course Plan Date 06/14/2017 1:33 PM ARIA Elapsed Days 24 ARIA Treatment Site PTV lung ARIA Dose Given To Date (cGy) 3,600 ARIA Session Dosage Given (cGy) 200 ARIA Plan ID R LUNG_REPLA N ARIA Fractions Treated 5 ARIA Prescribed Dose Per Fraction (cGy) 200 ARIA Prescribed Total Dose (cGy) 3,400 ARIA 07/15/2017 2:01 PM MOTION PICTURE SET WORKER us Not In File Miscellaneous RADIATION ONCOLOGY ORD ERABLES Final Result ARIA documented in this encounter Visit Diagnoses Not on filedocumented in this encounter Care Teams Printing Film Stripper Relationship Specialty Start Date End Date Paula Robles NP PCP - General 05/31/17 documented as of this encounter
--- OUTSIDE RECORDS SUMMARY | 2024-08-06 17:38 | XMS_ITS | Encounter Summary ---
Author Organization [facility] Healthcare Address [address] [place] [id number] Care Team Providers Care Drill Hand Name Role Phone Paula Robles Eleni SIGN PAINTER APPRENTICE Primary Care Provider + Encounter Details Date Type Department Care Team (Late st Contact Info) Description 07/28/2017 Orders Only RAD ONC TREATMENTS Miscellaneous, Not In File Social History Tobacco Use Types Packs/Day Years Used Date Smoking Tobacco: Never Assessed Comments Unknown Sex and Gender Information Value Date Recorded Sex Assigned at Not on file Legal Sex Female 1:02 AM BRIDGE DESIGN ENGINEER Gender Identity Not on file Sexual Orientation Not on file documented as of this encounter Plan of Treatment Not on file documented as of this encounter Procedures Procedure Name Priority Date/Time Associated Diagnosis Comments RAD ONC ARIA SESSION SUMMARY 07/28/2017 1:55 PM BRIDGE DESIGN ENGINEER documented in this encounter Results * RAD ONC ARIA SESSION SUMMARY (07/28/2017 1:55 PM BRIDGE DESIGN ENGINEER) Course Name C1 RT LUNG 2017 ARIA Course Plan Date 06/14/2017 1:33 PM ARIA Elapsed Days 37 ARIA Treatment Site PTV lung ARIA Dose Given To Date (cGy) 5,400 ARIA Session Dosage Given (cGy) 200 ARIA Plan ID R LUNG_REPLA N ARIA Fractions Treated 14 ARIA Prescribed Dose Per Fraction (cGy) 200 ARIA Prescribed Total Dose (cGy) 3,400 ARIA 07/28/2017 1:55 PM BRIDGE DESIGN ENGINEER us Not In File Miscellaneous RADIATION ONCOLOGY ORD ERABLES Final Result ARIA documented in this encounter Visit Diagnoses Not on filedocumented in this encounter Care Teams Drill Hand Relationship Specialty Start Date End Date Paula Robles NP PCP - General 05/31/17 documented as of this encounter
--- OUTSIDE RECORDS SUMMARY | 2024-08-06 17:38 | XMS_ITS | Encounter Summary ---
Author Organization [facility] Healthcare Address [address] [place] [id number] Care Team Providers Care Expediter Name Role Phone Paula Robles Eleni E LEARNING DESIGNER Primary Care Provider + Encounter Details Date Type Department Care Team (Late st Contact Info) Description 07/13/2017 Orders Only RAD ONC TREATMENTS Miscellaneous, Not In File Social History Tobacco Use Types Packs/Day Years Used Date Smoking Tobacco: Never Assessed Comments Unknown Sex and Gender Information Value Date Recorded Sex Assigned at Not on file Legal Sex Female 1:02 AM PYTHON WEB DEVELOPER Gender Identity Not on file Sexual Orientation Not on file documented as of this encounter Plan of Treatment Not on file documented as of this encounter Procedures Procedure Name Priority Date/Time Associated Diagnosis Comments RAD ONC ARIA SESSION SUMMARY 07/13/2017 8:59 AM PYTHON WEB DEVELOPER documented in this encounter Results * RAD ONC ARIA SESSION SUMMARY (07/13/2017 8:59 AM PYTHON WEB DEVELOPER) Course Name C1 RT LUNG 2017 ARIA Course Plan Date 06/14/2017 1:33 PM ARIA Elapsed Days 22 ARIA Treatment Site PTV lung ARIA Dose Given To Date (cGy) 3,200 ARIA Session Dosage Given (cGy) 200 ARIA Plan ID R LUNG_REPLA N ARIA Fractions Treated 3 ARIA Prescribed Dose Per Fraction (cGy) 200 ARIA Prescribed Total Dose (cGy) 3,400 ARIA 07/13/2017 8:59 AM PYTHON WEB DEVELOPER us Not In File Miscellaneous RADIATION ONCOLOGY ORD ERABLES Final Result ARIA documented in this encounter Visit Diagnoses Not on filedocumented in this encounter Care Teams Expediter Relationship Specialty Start Date End Date Paula Robles NP PCP - General 05/31/17 documented as of this encounter
--- OUTSIDE RECORDS SUMMARY | 2024-08-06 17:38 | XMS_ITS | Encounter Summary ---
Author Organization [facility] Healthcare Address [address] [place] [address] Care Team Providers Care Purchasing Associate Name Role Phone Palua Robles TROUBLE OPERATOR Primary Care Provider + Encounter Details Date Type Department Care Team (Late st Contact Info) Description 07/16/2017 1:15 PM MASH PREPARATORY OPERATOR Lab [address] [address] Social History Tobacco Use Types Packs/Day Years Used Date Smoking Tobacco: Never Assessed Comments Unknown Sex and Gender Information Value Date Recorded Sex Assigned at Not on file Legal Sex Female 1:02 AM MASH PREPARATORY OPERATOR Gender Identity Not on file Sexual Orientation Not on file documented as of this encounter Plan of Treatment Not on file documented as of this encounter Visit Diagnoses Not on filedocumented in this encounter Care Teams Purchasing Associate Relationship Specialty Start Date End Date Paula Robles NP PCP - General 05/31/17 documented as of this encounter
--- OUTSIDE RECORDS SUMMARY | 2024-08-06 17:38 | XMS_ITS | Encounter Summary ---
Author Organization [facility] Healthcare Address [address] [place] [address] Care Team Providers Care Substation Electrician Name Role Phone Paula Robles [employer] Primary Care Provider + No, Physician Primary Care Provider [phone] Paula Robles [employer] Primary Care Provider + Encounter Details Date Type Department Care Team (Latest Contact Info) Description 05/20/2017 2:20 PM CDT - 06/21/2017 11:59 PM PROCESS TECHNICIAN Hospital Encounter [facility] OP INTERIM [phone] Carl Rain MD [address] [place] [address] Discharge Disposition: Discharge to home or self care Social History Tobacco Use Types Packs/Day Years Used Date Smoking Tobacco: Never Assessed Comments Unknown Sex and Gender Information Value Date Recorded Sex Assigned at Not on file Legal Sex Female 1:02 AM PROCESS TECHNICIAN Gender Identity Not on file Sexual [...] Associated Diagnosis Comments COMPREHENSIVE METABOLIC PANEL STAT 06/21/2017 10:25 AM PROCESS TECHNICIAN CBC WITH AUTO DIFFERENTIAL Routine Gen Lab 06/21/2017 10:04 AM PROCESS TECHNICIAN COMPREHENSIVE METABOLIC PANEL STAT 05/31/2017 12:15 PM CDT CBC WITH AUTO DIFFERENTIAL Routine Gen Lab 05/31/2017 12:03 PM CDT XR CONSULT OF OUTSIDE FILMS (PEDS ONLY) Routine 05/21/2017 7:37 PM CDT XR CONSULT OF OUTSIDE FILMS (PEDS ONLY) Routine 05/21/2017 7:37 PM CDT XR CONSULT OF OUTSIDE FILMS (PEDS ONLY) Routine 05/21/2017 7:37 PM CDT XR CONSULT OF OUTSIDE FILMS (PEDS ONLY) Routine 05/21/2017 7:37 PM CDT XR CONSULT OF OUTSIDE FILMS (PEDS ONLY) Routine 05/21/2017 7:37 PM CDT XR CONSULT OF OUTSIDE FILMS (PEDS ONLY) Routine 05/21/2017 7:37 PM CDT XR CONSULT OF OUTSIDE FILMS (PEDS ONLY) Routine 05/21/2017 7:37 PM CDT XR CONSULT OF OUTSIDE FILMS (PEDS ONLY) Routine 05/21/2017 7:37 PM CDT XR CONSULT OF OUTSIDE FILMS (PEDS ONLY) Routine 05/21/2017 5:40 PM CDT DISCHARGE LABORATORY CUMULATIVE REPORT 05/20/2017 12:00 AM CDT documented in this encounter Results * (ABNORMAL) Comprehensive metabolic panel (06/21/2017 10:25 AM PROCESS TECHNICIAN) Pathologist [facility] Sodium 145 135 - 145 mmol/L [facility] Potassium, pl 3.9 3.3 - 4.9 mmol/L [facility] CO2 34(H) 22 - 32 mmol/L [facility] BUN 12 8 - 25 mg/dL [facility] Glucose 112 70 - 199 mg/dL [facility] Creatinine 0.68 0.60 - 1.10 mg/dL [facility] Calcium 9.4 8.5 - 10.3 mg/dL [facility] Chloride 100 97 - 110 mmol/L [facility] Albumin 4.1 3.5 - 5.0 g/dL [facility] AST 23 10 - 45 Units/L [facility] ALT 24 7 - 45 Units/L [facility] Alk phos 104 40 - 130 Units/L [facility] Bilirubin, total 0.3 0.1 - 1.2 mg/dL [facility] Protein, pl 7.6 6.5 - 8.5 g/dL [facility] Anion gap 11 2 - 15 mmol/L [facility] Blood specimen (specimen) 06/21/2017 10:25 AM PROCESS TECHNICIAN 06/21/2017 10:25 AM PROCESS TECHNICIAN us Carl Rain MD LAB BLOOD ORDERABLES F inal Result [facility] [place] [address] * CBC with auto differential (06/21/2017 10:04 AM PROCESS TECHNICIAN) Pathologist [facility] WBC 4.6 3.8 - 9.8 K/cumm [facility] RBC 4.23 3.90 - 5.00 M/cumm [facility] Hgb 13.3 12.1 - 15.1 g/dL [facility] Hct 39.2 36.1 - 44.3 % [facility] Mean Cellular Volume - CAM 92.7 80.0 - 97.6 fL [facility] Mean Cellular Hemoglobin - CAM 31.5 26.7 - 33.7 pg [facility] Mean Cellular Hemoglobin Concentration - CAM 34.0 32.7 - 35.5 g/dL [facility] Rdw 13.0 11.8 - 14.6 % [facility] Plt 280 140 - 440 K/cumm [facility] Mean Platelet Volume - CAM 6.8 6.8 - 10.4 fL [facility] Neutrophil pct 44.0 38.7 - 74.5 % [facility] Lymphocyte pct 44.6 20.0 - 54.3 % [facility] Monos 9.8 4.3 - 13.5 % [facility] Eosinophil pct 0.6 0.0 - 6.0 % [facility] Basophil pct 1.0 0.0 - 3.0 % [facility] Neutrophil abs 2.0 1.8 - 6.6 K/cumm [facility] Lymphocyte abs 2.1 1.2 - 3.3 K/cumm [facility] Monocyte abs 0.5 0.2 - 1.2 K/cumm [facility] Eosinophils, abs 0.0 0.0 - 0.5 K/cumm [facility] Basophil abs 0.0 0.0 - 0.2 K/cumm [facility] NRBC 0.1 0.0 - 0.2 % [facility] NRBC abs 0.01 0.00 - 0.01 K/cumm [facility] Blood specimen (specimen) 06/21/2017 10:04 AM PROCESS TECHNICIAN 06/21/2017 10:08 AM PROCESS TECHNICIAN us Carl Rain MD LAB BLOOD ORDERABLES F inal Result [facility] Department [place] [address] * Comprehensive metabolic panel (05/31/2017 12:15 PM CDT) [facility] Sodium 143 135 - 145 mmol/L [facility] Potassium, pl 3.8 3.3 - 4.9 mmol/L [facility] CO2 32 22 - 32 mmol/L [facility] BUN 14 8 - 25 mg/dL [facility] Glucose 91 70 - 199 mg/dL [facility] Creatinine 0.61 0.60 - 1.10 mg/dL [facility] Calcium 9.6 8.5 - 10.3 mg/dL [facility] Chloride 102 97 - 110 mmol/L [facility] Albumin 4.1 3.5 - 5.0 g/dL [facility] AST 20 10 - 45 Units/L [facility] ALT 17 7 - 45 Units/L [facility] Alk phos 94 40 - 130 Units/L [facility] Bilirubin, total 0.4 0.1 - 1.2 mg/dL [facility] Protein, pl 7.4 6.5 - 8.5 g/dL [facility] Anion gap 9 2 - 15 mmol/L [facility] Blood specimen (specimen) 05/31/2017 12:15 PM CDT 05/31/2017 12:18 PM CDT us Carl Rain MD LAB BLOOD ORDERABLES F inal Result [facility] [place] [address] * CBC with auto differential (05/31/2017 12:03 PM CDT) WBC 7.5 3.8 - 9.8 K/cumm [facility] RBC 4.64 3.90 - 5.00 M/cumm [facility] Hgb 14.5 12.1 - 15.1 g/dL [facility] Hct 43.6 36.1 - 44.3 % [facility] Mean Cellular Volume - CAM 94.1 80.0 - 97.6 fL [facility] Mean Cellular Hemoglobin - CAM 31.2 26.7 - 33.7 pg [facility] Mean Cellular Hemoglobin Concentration - CAM 33.2 32.7 - 35.5 g/dL [facility] Rdw 13.2 11.8 - 14.6 % [facility] Plt 241 140 - 440 K/cumm [facility] Mean Platelet Volume - CAM 7.7 6.8 - 10.4 fL [facility] Neutrophil pct 60.0 38.7 - 74.5 % [facility] Lymphocyte pct 32.0 20.0 - 54.3 % [facility] Monos 5.2 4.3 - 13.5 % [facility] Eosinophil pct 2.0 0.0 - 6.0 % [facility] Basophil pct 0.8 0.0 - 3.0 % [facility] Neutrophil abs 4.5 1.8 - 6.6 K/cumm [facility] Lymphocyte abs 2.4 1.2 - 3.3 K/cumm [facility] Monocyte abs 0.4 0.2 - 1.2 K/cumm [facility] Eosinophils, abs 0.2 0.0 - 0.5 K/cumm [facility] Basophil abs 0.1 0.0 - 0.2 K/cumm [facility] NRBC 0.1 0.0 - 0.2 % [facility] NRBC abs 0.00 0.00 - 0.01 K/cumm [facility] Blood specimen (specimen) 05/31/2017 12:03 PM CDT 05/31/2017 12:04 PM CDT Carl Rain MD LAB BLOOD ORDERABLES F inal Result [facility] [place] [address] * XR Interpretation Of Outside Films (05/21/2017 7:37 PM CDT) Anatomical Region Laterality Modality N/A Radiographic Rosalia ging 05/21/2017 7:37 PM CDT Narrative 05/21/2017 9:39 PM CDT OUTSIDE IMAGES SUBMARINE DIVER, FINAL REPORT ACC# ??Date Time ??Exam [id number] May 21, 2017 14:37:00 27294T PET Reference EXAMINATION: ?? Images For Reference Purposes Only IMPRESSION: ?? These images are for Reference purposes only and have not been reviewed by [facility]. There will be no report generated by a [facility]iologist. Requested By: CARL RAIN ??M.D. ? Dictated By: ?? OUTSIDE IMAGES SUBMARINE DIVER, ?? on May 21 2017 ??4:39P This document has been electronically signed by: OUTSIDE IMAGES SUBMARINE DIVER, ??on May 21 2017 ??4:39P [id number] IMAGES SUBMARINE DIVER, FINAL REPORT Attending: ??RENETTA, ??CARL Requesting: ??RENETTA, ??CARL Requesting Fax: ?? Attending Fax: ?? Attending ID: ??[id number] Requesting ID: ??[id number] Report To 1 ID: ? Report To 1 Name: ??, ?? Report To 1 FAX: ?? NextGen Order #: ?? Procedure Note Miscellaneous, Not In File - 05/21/2017 OUTSIDE IMAGES SUBMARINE DIVER, FINAL REPORT ACC# Date Time Exam [id number] May 21, 2017 14:37:00 40027L PET Reference EXAMINATION: Images For Reference Purposes Only IMPRESSION: These images are for Reference purposes only and have not been reviewed by [facility]. There will be no report generated by a [facility]iologist. Requested By: CARL RAIN M.D. Dictated By: OUTSIDE IMAGES SUBMARINE DIVER, on May 21 2017 4:39P This document has been electronically signed by: OUTSIDE IMAGES SUBMARINE DIVER, on May 21 2017 4:39P [id number] IMAGES SUBMARINE DIVER, FINAL REPORT Attending: CARL RAIN Requesting: CARL RAIN Requesting Fax: Attending Fax: Attending ID: [id number] Requesting ID: [id number] Report To 1 ID: Report To 1 Name: , Report To 1 FAX: NextGen Order #: Carl Rain MD IMG XR PROCEDURES Sada l Result * XR Interpretation Of Outside Films (05/21/2017 7:37 PM CDT) Anatomical Region Laterality Modality N/A Radiographic Rosalia ging 05/21/2017 7:37 PM CDT Narrative 05/21/2017 9:39 PM CDT OUTSIDE IMAGES SUBMARINE DIVER, FINAL REPORT ACC# ??Date Time ??Exam [id number] May 21, 2017 14:37:00 34115N PET Reference EXAMINATION: ?? Images For Reference Purposes Only IMPRESSION: ?? These images are for Reference purposes only and have not been reviewed by [facility]. There will be no report generated by a [facility]iologist. Requested By: CARL RAIN ??M.D. ? Dictated By: ?? OUTSIDE IMAGES SUBMARINE DIVER, ?? on May 21 2017 ??4:39P This document has been electronically signed by: OUTSIDE IMAGES SUBMARINE DIVER, ??on May 21 2017 ??4:39P [id number] IMAGES SUBMARINE DIVER, FINAL REPORT Attending: ??RENETTA, ??CARL Requesting: ??RENETTA, ??CARL Requesting Fax: ?? Attending Fax: ?? Attending ID: ??[id number] Requesting ID: ??[id number] Report To 1 ID: ? Report To 1 Name: ??, ?? Report To 1 FAX: ?? NextGen Order #: ?? Procedure Note Miscellaneous, Not In File - 05/21/2017 OUTSIDE IMAGES SUBMARINE DIVER, FINAL REPORT ACC# Date Time Exam [id number] May 21, 2017 14:37:00 31911D PET Reference EXAMINATION: Images For Reference Purposes Only IMPRESSION: These images are for Reference purposes only and have not been reviewed by [facility]. There will be no report generated by a [facility]iologist. Requested By: CARL RAIN M.D. Dictated By: OUTSIDE IMAGES SUBMARINE DIVER, on May 21 2017 4:39P This document has been electronically signed by: OUTSIDE IMAGES SUBMARINE DIVER, on May 21 2017 4:39P [id number] IMAGES SUBMARINE DIVER, FINAL REPORT Attending: CARL RAIN Requesting: CARL RAIN Requesting Fax: Attending Fax: Attending ID: [id number] Requesting ID: [id number] Report To 1 ID: Report To 1 Name: , Report To 1 FAX: NextGen Order #: Carl Rain MD IMG XR PROCEDURES Sada l Result * XR Interpretation Of Outside Films (05/21/2017 7:37 PM CDT) Anatomical Region Laterality Modality N/A Radiographic Rosalia ging 05/21/2017 7:37 PM CDT Narrative 05/21/2017 7:51 PM CDT OUTSIDE IMAGES SUBMARINE DIVER, FINAL REPORT ACC# ??Date Time ??Exam [id number] May 21, 2017 14:37:00 94468H [facility] Body [facility] Reference [id number] May 21, 2017 14:37:00 63739E [facility] Body [facility] Reference [id number] May 21, 2017 14:37:00 74232N [facility] Body [facility] Reference [id number] May 21, 2017 14:37:00 56204C [facility] Plain Film Reference [id number] May 21, 2017 14:37:00 38839W [facility] Plain Film Reference [id number] May 21, 2017 14:37:00 33375M [facility] Plain Film Reference EXAMINATION: ?? Images For Reference Purposes Only IMPRESSION: ?? These images are for Reference purposes only and have not been reviewed by [facility]. There will be no report generated by a [facility]iologist. Requested By: CARL RAIN ??M.D. ? Dictated By: ?? OUTSIDE IMAGES SUBMARINE DIVER, ?? on May 21 2017 ??2:51P This document has been electronically signed by: OUTSIDE IMAGES SUBMARINE DIVER, ??on May 21 2017 ??2:51P [id number] IMAGES SUBMARINE DIVER, FINAL REPORT Attending: ??RENETTA, ??CARL Requesting: ??RENETTA, ??CARL Requesting Fax: ?? Attending Fax: ?? Attending ID: ??[id number] Requesting ID: ??[id number] Report To 1 ID: ? Report To 1 Name: ??, ?? Report To 1 FAX: ?? NextGen Order #: ?? Procedure Note Miscellaneous, Not In File - 05/21/2017 OUTSIDE IMAGES SUBMARINE DIVER, FINAL REPORT ACC# Date Time Exam [id number] May 21, 2017 14:37:00 23860M [facility] Reference [id number] May 21, 2017 14:37:00 15573J [facility] Body [facility] Reference [id number] May 21, 2017 14:37:00 37404W [facility] Body [facility] Reference [id number] May 21, 2017 14:37:00 38892P [facility] Plain Film Reference [id number] May 21, 2017 14:37:00 84439M [facility] Plain Film Reference [id number] May 21, 2017 14:37:00 47979W [facility] Plain Film Reference EXAMINATION: Images For Reference Purposes Only IMPRESSION: These images are for Reference purposes only and have not been reviewed by [facility]. There will be no report generated by a [facility]iologist. Requested By: CARL RAIN M.D. Dictated By: OUTSIDE IMAGES SUBMARINE DIVER, on May 21 2017 2:51P This document has been electronically signed by: OUTSIDE IMAGES SUBMARINE DIVER, on May 21 2017 2:51P [id number] IMAGES SUBMARINE DIVER, FINAL REPORT Attending: CARL RAIN Requesting: CARL RAIN Requesting Fax: Attending Fax: Attending ID: [id number] Requesting ID: [id number] Report To 1 ID: Report To 1 Name: , Report To 1 FAX: NextGen Order #: Carl Rain MD IMG XR PROCEDURES Sada l Result * XR Interpretation Of Outside Films (05/21/2017 7:37 PM CDT) Anatomical Region Laterality Modality N/A Radiographic Rosalia ging 05/21/2017 7:37 PM CDT Narrative 05/21/2017 7:51 PM CDT OUTSIDE IMAGES SUBMARINE DIVER, FINAL REPORT ACC# ??Date Time ??Exam [id number] May 21, 2017 14:37:00 24203T [facility] Body [facility] Reference [id number] May 21, 2017 14:37:00 90761I [facility] Body [facility] Reference [id number] May 21, 2017 14:37:00 93570Y [facility] Body [facility] Reference [id number] May 21, 2017 14:37:00 37553W [facility] Plain Film Reference [id number] May 21, 2017 14:37:00 27784D [facility] Plain Film Reference [id number] May 21, 2017 14:37:00 84089H [facility] Plain Film Reference EXAMINATION: ?? Images For Reference Purposes Only IMPRESSION: ?? These images are for Reference purposes only and have not been reviewed by [facility]. There will be no report generated by a [facility]iologist. Requested By: CARL RAIN ??M.D. ? Dictated By: ?? OUTSIDE IMAGES SUBMARINE DIVER, ?? on May 21 2017 ??2:51P This document has been electronically signed by: OUTSIDE IMAGES SUBMARINE DIVER, ??on May 21 2017 ??2:51P [id number] IMAGES SUBMARINE DIVER, FINAL REPORT Attending: ??RENETTA, ??CARL Requesting: ??RENETTA, ??CARL Requesting Fax: ?? Attending Fax: ?? Attending ID: ??[id number] Requesting ID: ??[id number] Report To 1 ID: ? Report To 1 Name: ??, ?? Report To 1 FAX: ?? NextGen Order #: ?? Procedure Note Miscellaneous, Not In File - 05/21/2017 OUTSIDE IMAGES SUBMARINE DIVER, FINAL REPORT ACC# Date Time Exam [id number] May 21, 2017 14:37:00 39094Y [facility] Body [facility] Reference [id number] May 21, 2017 14:37:00 83161I [facility] Body [facility] Reference [id number] May 21, 2017 14:37:00 11431Z [facility] Body [facility] Reference [id number] May 21, 2017 14:37:00 56912K [facility] Plain Film Reference [id number] May 21, 2017 14:37:00 77769J [facility] Plain Film Reference [id number] May 21, 2017 14:37:00 44731H [facility] Plain Film Reference EXAMINATION: Images For Reference Purposes Only IMPRESSION: These images are for Reference purposes only and have not been reviewed by [facility]. There will be no report generated by a [facility]iologist. Requested By: CARL RAIN M.D. Dictated By: OUTSIDE IMAGES SUBMARINE DIVER, on May 21 2017 2:51P This document has been electronically signed by: OUTSIDE IMAGES SUBMARINE DIVER, on May 21 2017 2:51P [id number] IMAGES SUBMARINE DIVER, FINAL REPORT Attending: CARL RAIN Requesting: CARL RAIN Requesting Fax: Attending Fax: Attending ID: [id number] Requesting ID: [id number] Report To 1 ID: Report To 1 Name: , Report To 1 FAX: NextGen Order #: us Carl Rain MD IMG XR PROCEDURES Sada l Result * XR Interpretation Of Outside Films (05/21/2017 7:37 PM CDT) Anatomical Region Laterality Modality N/A Radiographic Rosalia ging 05/21/2017 7:37 PM CDT Narrative 05/21/2017 7:51 PM CDT OUTSIDE IMAGES SUBMARINE DIVER, FINAL REPORT ACC# ??Date Time ??Exam [id number] May 21, 2017 14:37:00 62258Y [facility] Body [facility] Reference [id number] May 21, 2017 14:37:00 48399L [facility] Body [facility] Reference [id number] May 21, 2017 14:37:00 07089R [facility] Body [facility] Reference [id number] May 21, 2017 14:37:00 61300P [facility] Plain Film Reference [id number] May 21, 2017 14:37:00 89540O [facility] Plain Film Reference [id number] May 21, 2017 14:37:00 [id number] [facility] Plain Film Reference EXAMINATION: ?? Images For Reference Purposes Only IMPRESSION: ?? These images are for Reference purposes only and have not been reviewed by [facility]. There will be no report generated by a [facility]iologist. Requested By: CARL RAIN ??M.D. ? Dictated By: ?? OUTSIDE IMAGES SUBMARINE DIVER, ?? on May 21 2017 ??2:51P This document has been electronically signed by: OUTSIDE IMAGES SUBMARINE DIVER, ??on May 21 2017 ??2:51P [id number] IMAGES SUBMARINE DIVER, FINAL REPORT Attending: ??RENETTA, ??CARL Requesting: ??RENETTA, ??CARL Requesting Fax: ?? Attending Fax: ?? Attending ID: ??[id number] Requesting ID: ??[id number] Report To 1 ID: ? Report To 1 Name: ??, ?? Report To 1 FAX: ?? NextGen Order #: ?? Procedure Note Miscellaneous, Not In File - 05/21/2017 OUTSIDE IMAGES SUBMARINE DIVER, FINAL REPORT ACC# Date Time Exam [id number] May 21, 2017 14:37:00 06347N [facility] Body [facility] Reference [id number] May 21, 2017 14:37:00 27283E [facility] Body [facility] Reference [id number] May 21, 2017 14:37:00 36102S [facility] Body [facility] Reference [id number] May 21, 2017 14:37:00 14884W [facility] Plain Film Reference [id number] May 21, 2017 14:37:00 77099U [facility] Plain Film Reference [id number] May 21, 2017 14:37:00 [id number] [facility] Plain Film Reference EXAMINATION: Images For Reference Purposes Only IMPRESSION: These images are for Reference purposes only and have not been reviewed by [facility]. There will be no report generated by a [facility]iologist. Requested By: CARL RAIN M.D. Dictated By: OUTSIDE IMAGES SUBMARINE DIVER, on May 21 2017 2:51P This document has been electronically signed by: OUTSIDE IMAGES SUBMARINE DIVER, on May 21 2017 2:51P [id number] IMAGES SUBMARINE DIVER, FINAL REPORT Attending: CARL RAIN Requesting: CARL RAIN Requesting Fax: Attending Fax: Attending ID: [id number] Requesting ID: [id number] Report To 1 ID: Report To 1 Name: , Report To 1 FAX: NextGen Order #: Carl Rain MD IMG XR PROCEDURES Sada l Result * XR Interpretation Of Outside Films (05/21/2017 7:37 PM CDT) Anatomical Region Laterality Modality N/A Radiographic Rosalia ging 05/21/2017 7:37 PM CDT Narrative 05/21/2017 7:51 PM CDT OUTSIDE IMAGES SUBMARINE DIVER, FINAL REPORT ACC# ??Date Time ??Exam [id number] May 21, 2017 14:37:00 15436S [facility] Body [facility] Reference [id number] May 21, 2017 14:37:00 33341N [facility] Body [facility] Reference [id number] May 21, 2017 14:37:00 01047P [facility] Body [facility] Reference [id number] May 21, 2017 14:37:00 11330Q [facility] Plain Film Reference [id number] May 21, 2017 14:37:00 42384E [facility] Plain Film Reference [id number] May 21, 2017 14:37:00 46728F [facility] Plain Film Reference EXAMINATION: ?? Images For Reference Purposes Only IMPRESSION: ?? These images are for Reference purposes only and have not been reviewed by [facility]. There will be no report generated by a [facility]iologist. Requested By: CARL RAIN ??M.D. ? Dictated By: ?? OUTSIDE IMAGES SUBMARINE DIVER, ?? on May 21 2017 ??2:51P This document has been electronically signed by: OUTSIDE IMAGES SUBMARINE DIVER, ??on May 21 2017 ??2:51P [id number] IMAGES SUBMARINE DIVER, FINAL REPORT Attending: ??RENETTA, ??CARL Requesting: ??RENETTA, ??CARL Requesting Fax: ?? Attending Fax: ?? Attending ID: ??[id number] Requesting ID: ??[id number] Report To 1 ID: ? Report To 1 Name: ??, ?? Report To 1 FAX: ?? NextGen Order #: ?? Procedure Note Miscellaneous, Not In File - 05/21/2017 OUTSIDE IMAGES SUBMARINE DIVER, FINAL REPORT ACC# Date Time Exam [id number] May 21, 2017 14:37:00 49464Q [facility] Body CT Reference [id number] May 21, 2017 14:37:00 03043P [facility] Body [facility] Reference [id number] May 21, 2017 14:37:00 16947C [facility] Body [facility] Reference [id number] May 21, 2017 14:37:00 60041M [facility] Plain Film Reference [id number] May 21, 2017 14:37:00 10098P [facility] Plain Film Reference [id number] May 21, 2017 14:37:00 28462H [facility] Plain Film Reference EXAMINATION: Images For Reference Purposes Only IMPRESSION: These images are for Reference purposes only and have not been reviewed by [facility]. There will be no report generated by a [facility]iologist. Requested By: CARL RAIN M.D. Dictated By: OUTSIDE IMAGES SUBMARINE DIVER, on May 21 2017 2:51P This document has been electronically signed by: OUTSIDE IMAGES SUBMARINE DIVER, on May 21 2017 2:51P [id number] IMAGES SUBMARINE DIVER, FINAL REPORT Attending: CARL RAIN Requesting: CARL RAIN Requesting Fax: Attending Fax: Attending ID: [id number] Requesting ID: [id number] Report To 1 ID: Report To 1 Name: , Report To 1 FAX: NextGen Order #: Carl Rain MD IMG XR PROCEDURES Sada l Result * XR Interpretation Of Outside Films (05/21/2017 7:37 PM CDT) Anatomical Region Laterality Modality N/A Radiographic Rosalia ging 05/21/2017 7:37 PM CDT Narrative 05/21/2017 7:51 PM CDT OUTSIDE IMAGES SUBMARINE DIVER, FINAL REPORT ACC# ??Date Time ??Exam [id number] May 21, 2017 14:37:00 85021G [facility] Body CT Reference [id number] May 21, 2017 14:37:00 [id number] [facility] Body [facility] Reference [id number] May 21, 2017 14:37:00 [id number] [facility] Body CT Reference [id number] May 21, 2017 14:37:00 [id number] [facility] Plain Film Reference [id number] May 21, 2017 14:37:00 26310S [facility] Plain Film Reference [id number] May 21, 2017 14:37:00 [id number] [facility] Plain Film Reference EXAMINATION: ?? Images For Reference Purposes Only IMPRESSION: ?? These images are for Reference purposes only and have not been reviewed by [facility]. There will be no report generated by a [facility] Radiologist. Requested By: CARL RAIN ??M.D. ? Dictated By: ?? OUTSIDE IMAGES SUBMARINE DIVER, ?? on May 21 2017 ??2:51P This document has been electronically signed by: OUTSIDE IMAGES SUBMARINE DIVER, ??on May 21 2017 ??2:51P [id number] IMAGES SUBMARINE DIVER, FINAL REPORT Attending: ??RENETTA, ??CARL Requesting: ??RENETTA, ??CARL Requesting Fax: ?? Attending Fax: ?? Attending ID: ??[id number] Requesting ID: ??[id number] Report To 1 ID: ? Report To 1 Name: ??, ?? Report To 1 FAX: ?? NextGen Order #: ?? Procedure Note Miscellaneous, Not In File - 05/21/2017 OUTSIDE IMAGES SUBMARINE DIVER, FINAL REPORT ACC# Date Time Exam [id number] May 21, 2017 14:37:00 [id number] [facility] Body CT Reference [id number] May 21, 2017 14:37:00 91119H [facility] Body CT Reference [id number] May 21, 2017 14:37:00 [id number] [facility] Body CT Reference [id number] May 21, 2017 14:37:00 [id number] [facility] Plain Film Reference [id number] May 21, 2017 14:37:00 81359P [facility] Plain Film Reference [id number] May 21, 2017 14:37:00 16871K [facility] Plain Film Reference EXAMINATION: Images For Reference Purposes Only IMPRESSION: These images are for Reference purposes only and have not been reviewed by [facility]. There will be no report generated by a [facility] Radiologist. Requested By: DEVARAKONDA,CARL M.D. Dictated By: OUTSIDE IMAGES SUBMARINE DIVER, on May 21 2017 2:51P This document has been electronically signed by: OUTSIDE IMAGES SUBMARINE DIVER, on May 21 2017 2:51P [id number] IMAGES SUBMARINE DIVER, FINAL REPORT Attending: CARL RAIN Requesting: CARL RAIN Requesting Fax: Attending Fax: Attending ID: [id number] Requesting ID: [id number] Report To 1 ID: Report To 1 Name: , Report To 1 FAX: NextGen Order #: us Carl Rain MD IMG XR PROCEDURES Sada l Result * XR Interpretation Of Outside Films (05/21/2017 7:37 PM CDT) Anatomical Region Laterality Modality N/A Radiographic Rosalia ging 05/21/2017 7:37 PM CDT Narrative 05/21/2017 7:51 PM CDT OUTSIDE IMAGES SUBMARINE DIVER, FINAL REPORT ACC# ??Date Time ??Exam [id number] May 21, 2017 14:37:00 [id number] [facility] Body CT Reference [id number] May 21, 2017 14:37:00 76368H [facility] Body CT Reference [id number] May 21, 2017 14:37:00 36198C [facility] Body CT Reference [id number] May 21, 2017 14:37:00 [id number] [facility] Plain Film Reference [id number] May 21, 2017 14:37:00 [id number] [facility] Plain Film Reference [id number] May 21, 2017 14:37:00 [id number] [facility] Plain Film Reference EXAMINATION: ?? Images For Reference Purposes Only IMPRESSION: ?? These images are for Reference purposes only and have not been reviewed by [facility]. There will be no report generated by a [facility] Radiologist. Requested By: CARL RAIN ??M.D. ? Dictated By: ?? OUTSIDE IMAGES SUBMARINE DIVER, ?? on May 21 2017 ??2:51P This document has been electronically signed by: OUTSIDE IMAGES SUBMARINE DIVER, ??on May 21 2017 ??2:51P [id number] IMAGES SUBMARINE DIVER, FINAL REPORT Attending: ??RENETTA, ??CARL Requesting: ??RENETTA, ??CARL Requesting Fax: ?? Attending Fax: ?? Attending ID: ??[id number] Requesting ID: ??[id number] Report To 1 ID: ? Report To 1 Name: ??, ?? Report To 1 FAX: ?? NextGen Order #: ?? Procedure Note Miscellaneous, Not In File - 05/21/2017 OUTSIDE IMAGES SUBMARINE DIVER, FINAL REPORT ACC# Date Time Exam [id number] May 21, 2017 14:37:00 [id number] [facility] Body CT Reference [id number] May 21, 2017 14:37:00 53817V [facility] Body CT Reference [id number] May 21, 2017 14:37:00 [id number] [facility] Body CT Reference [id number] May 21, 2017 14:37:00 [id number] [facility] Plain Film Reference [id number] May 21, 2017 14:37:00 [id number] [facility] Plain Film Reference [id number] May 21, 2017 14:37:00 [id number] [facility] Plain Film Reference EXAMINATION: Images For Reference Purposes Only IMPRESSION: These images are for Reference purposes only and have not been reviewed by [facility]. There will be no report generated by a [facility] Radiologist. Requested By: CARL RAIN M.D. Dictated By: ROME IMAGES SUBMARINE DIVER, on May 21 2017 2:51P This document has been electronically signed by: OUTSIDE IMAGES SUBMARINE DIVER, on May 21 2017 2:51P [id number] IMAGES SUBMARINE DIVER, FINAL REPORT Attending: CARL RAIN Requesting: CARL RAIN Requesting Fax: Attending Fax: Attending ID: [id number] Requesting ID: [id number] Report To 1 ID: Report To 1 Name: , Report To 1 FAX: NextGen Order #: Carl Rain MD IMG XR PROCEDURES Sada l Result * XR Interpretation Of Outside Films (05/21/2017 5:40 PM CDT) Anatomical Region Laterality Modality N/A Radiographic Rosalia ging 05/21/2017 5:40 PM CDT Narrative 05/21/2017 9:04 PM CDT JOSE CARLOS ARNDT M.D. JOSELUIS EASON M.D. FINAL REPORT The radiology attending physician has personally reviewed this study, and has reviewed and/or edited this written report and agrees with it. ACC# ??Date Time ??Exam [id number] May 21, 2017 12:40:00 [id number] [facility] Body CT Consult EXAMINATION: ??RADIOLOGY CONSULTATION ON OUTSIDE IMAGING STUDY STUDY INITIALLY PERFORMED: 04/28/[address] [facility] in [place], [place]. TYPE OF STUDY: Multiple CT images of the chest with intravenous contrast are provided at the time of this interpretation. The protocol was adequate to address the clinical question. The outside final report was not available at the time of this second opinion interpretation. 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 COMPARISON: CTs in [facility] dated 10/26/16 and 09/24/15 FINDINGS: Interval increase in size of a right hilar mass which measures 4.5 x 3.9 cm (SL-74). The mass compresses the superior vena cava. There is a 2.5 x 1.9 cm subcarinal lymph node which has increased in size. A right paratracheal lymph node measures 1.3 x 1.2 cm and has increased in size. No supraclavicular or axillary lymphadenopathy. The pulmonary artery is enlarged, which can be seen in the setting of pulmonary arterial hypertension. No central pulmonary embolism. Heart size is normal with trace pericardial effusion. There is persistent collapse of the right upper lobe. ??No suspicious pulmonary nodule, pneumothorax, or pleural effusion. ??There is mild bibasilar atelectasis. A splenule is noted. ??The pancreas is atrophic. Bone windows demonstrate no suspicious osseous lytic or blastic lesion. IMPRESSION: ??Interval increase in size of right hilar mass with persistent right upper lobe collapse. ??Increased subcarinal and right paratracheal lymphadenopathy, concerning for metastatic disease. ?? The findings, conclusions and recommendations within this report do not replace the initial findings, conclusions ??and recommendations made at the facility where the study was performed based upon the imaging and clinical condition at that time. ??Comparison with the prior report and clinical history is necessary. ??The provided images may or may not represent the [place] source data set and thus may contain changes that may lower the accuracy of this second-opinion interpretation. Electronically signed by: Jose Carlos Arndt M.D. Requested By: CARL RAIN ??M.D. ? Dictated By: ?? JOSELUIS EASON M.D. ??on May 21 2017 ??4:01P This document has been electronically signed by: JOSE CARLOS ARNDT M.D. on May 21 2017 ??4:01P [id number] CARLOS ARNDT M.D. JOSELUIS EASON M.D. FINAL REPORT The radiology attending physician has personally reviewed this study, and has reviewed and/or edited this written report and agrees with it. Attending: ??RENETTA, ??CARL Requesting: ??RENETTA, ??CARL Requesting Fax: ?? Attending Fax: ?? Attending ID: ??[id number] Requesting ID: ??[id number] Report To 1 ID: ??[id number] ? Report To 1 Name: ??, ?? Report To 1 FAX: ?? NextGen Order #: ?? Procedure Note Miscellaneous, Not In File - 05/21/2017 JOSE CARLOS ARNDT M.D. JOSELUIS EASON M.D. FINAL REPORT The radiology attending physician has personally reviewed this study, and has reviewed and/or edited this written report and agrees with it. [facility]# Date Time Exam [id number] May 21, 2017 12:40:00 [id number] [facility] Body CT Consult EXAMINATION: RADIOLOGY CONSULTATION ON OUTSIDE IMAGING STUDY STUDY INITIALLY PERFORMED: 04/28/[address] [facility] in [place], [place]. TYPE OF STUDY: Multiple CT images of the chest with intravenous contrast are provided at the time of this interpretation. The protocol was adequate to address the clinical question. The outside final report was not available at the time of this second opinion interpretation. 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 COMPARISON: CTs in [facility] dated 10/26/16 and 09/24/15 FINDINGS: Interval increase in size of a right hilar mass which measures 4.5 x 3.9 cm (SL-74). The mass compresses the superior vena cava. There is a 2.5 x 1.9 cm subcarinal lymph node which has increased in size. A right paratracheal lymph node measures 1.3 x 1.2 cm and has increased in size. No supraclavicular or axillary lymphadenopathy. The pulmonary artery is enlarged, which can be seen in the setting of pulmonary arterial hypertension. No central pulmonary embolism. Heart size is normal with trace pericardial effusion. There is persistent collapse of the right upper lobe. No suspicious pulmonary nodule, pneumothorax, or pleural effusion. There is mild bibasilar atelectasis. A splenule is noted. The pancreas is atrophic. Bone windows demonstrate no suspicious osseous lytic or blastic lesion. IMPRESSION: Interval increase in size of right hilar mass with persistent right upper lobe collapse. Increased subcarinal and right paratracheal lymphadenopathy, concerning for metastatic disease. The findings, conclusions and recommendations within this report do not replace the initial findings, conclusions and recommendations made at the facility where the study was performed based upon the imaging and clinical condition at that time. Comparison with the prior report and clinical history is necessary. The provided images may or may not represent the [place] source data set and thus may contain changes that may lower the accuracy of this second-opinion interpretation. Electronically signed by: Jose Carlos Arndt M.D. Requested By: CARL RAIN M.D. Dictated By: JOSELUIS EASON M.D. on May 21 2017 4:01P This document has been electronically signed by: JOSE CARLOS ARNDT M.D. on May 21 2017 4:01P [id number] CARLOS ARNDT M.D. JOSELUIS EASON M.D. FINAL REPORT The radiology attending physician has personally reviewed this study, and has reviewed and/or edited this written report and agrees with it. Attending: CARL RAIN Requesting: CARL RAIN Requesting Fax: Attending Fax: Attending ID: [id number] Requesting ID: [id number] Report To 1 ID: [id number] Report To 1 Name: , Report To 1 FAX: NextGen Order #: Carl Rain MD IMG XR PROCEDURES Sada l Result * DISCHARGE LABORATORY CUMULATIVE REPORT (05/20/2017 12:00 AM CDT) Narrative 05/20/2017 12:00 AM CDT Ordered by an unspecified provider. Historical Provider LAB BLOOD ORDERABLES Sada l Result documented in this encounter Visit Diagnoses Not on filedocumented in this encounter Care Teams Substation Electrician Relationship Specialty Start Date End Date Paula Robles NP PCP - General 05/24/17 05/25/17 No, Physician PCP - General 05/26/17 05/30/17 Paula Robles NP PCP - General 05/31/17 documented as of this encounter
--- OUTSIDE RECORDS SUMMARY | 2024-08-06 17:38 | XMS_ITS | Encounter Summary ---
Author Organization [facility] Address [address] [place] [address] Phone Care Team Providers Care Ship Rigger Name Role Phone Paula Robles FLAME PLANER Primary Care Provider + Encounter Details Date Type Department Care Team (Late st Contact Info) Description 05/21/2017 Orders Only [facility] [place], [place] Zeeshan Rain MD [address] [place], [place] [id number] Social History Tobacco Use Types Packs/Day Years Used Date Smoking Tobacco: Never Assessed Comments Unknown Sex and Gender Information Value Date Recorded Sex Assigned at Not on file Legal Sex Female 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 [place] [address] SURGICAL PATHOLOGY REPORT * Consult Report * FINAL Patient Name: CARLOS MORGAN Address: [facility] Patient Type: [place] ??[place], [place] ??[id number] Location: Medical Oncology Taken: 05/21/2017 Gender: ??F Received: 05/21/2017 : 1950 (Age: 67) Hospital #: [id number] Accessioned: 05/21/2017 ? Reported: 05/25/2017 Physician(s): ??Zeeshan Rain M.D. [facility] Department of Pathology [facility] [address] [place] [address] P: [phone] F: [phone] Diagnosis: Consult material received from [facility], [place], [place] A. ??Lung, right upper lobe, bronchoscopic biopsy (OSC [id number] part A; 05/04/2017): ? - Small cell carcinoma (see comment) B. ??Lung, right upper lobe, bronchial brushing for cytology (OSC [id number] part B; 05/04/2017): ? - Small cell carcinoma C. ??Lung, right, bronchial washings for cytology (OSC [id number] part C; 05/04/2017): ? - Small cell carcinoma /05/23/2017 12:06 ??By this signature, I attest that the above diagnosis is based upon my personal examination of the slides(and/or other material indicated in the diagnosis). ?? Indio Dixon M.D. ??Report Electronically Reviewed and Signed Out By Indio Dixon M.D. Diagnosis Comment A) Immunohistochemical stains performed by [facility] and provided for our review: TTF-1, CD56, synaptophysin and pancytokeratin are positive, while CK7, and CK5 are negative. P63 demonstrates rare positive cells. ??This supports the above diagnosis of small cell carcinoma. Microscopic Description and Comment: Microscopic examination substantiates the above cited diagnosis. ? Jmi Hobson M.D. ? History: The patient is a 67 year old woman. Materials Received: Received for review are thirty-four slides labeled [id number], accompanied by a corresponding pathology report. ??The material originates from [place], [place]. Selected slide(s) may be digitally scanned for our files, and all materials are returned to the referring institution, along with a copy of our final report. Any testing required for diagnostic purposes was performed in the Department of Pathology and Immunology at [facility], [address] [place] [address] CLIA # [id number] The performance characteristics of the testing cited in this report (if any) were determined by the [facility],aspart of an ongoing air quality chemist programandin compliance with federally mandated regulations drawn from the Clinical Laboratory Improvement Act of 1988 (CLIA '88). Some of these tests rely on the use of analyte specific reagents (ASR)and are subject to specific labeling requirements by the US Food and Drug Administration. Such diagnostic tests may only be performed in a facility that is certified by the Department of Healthand Human Servicesas a high complexity laboratory under CLIA '88. The FDA has determined that such clearance or approval is not necessary. ASRs should not be regarded as investigational or for research. ASRs were developed and the performance characteristics determined by [facility]. It has not been cleared or approved by the U.S. Food and Drug Administration. Zeeshan Rain MD LAB PATHOLOGY ORDERABL ES Final Result documented in this encounter Visit Diagnoses Not on filedocumented in this encounter Care Teams Ship Rigger Relationship Specialty Start Date End Date Paula Robles NP PCP - General 05/24/17 05/25/17 documented as of this encounter
--- OUTSIDE RECORDS SUMMARY | 2024-08-06 17:38 | XMS_ITS | Encounter Summary ---
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 Gender Identity Not on file Sexual Orientation Not on file documented as of this encounter Plan of Treatment Not on file documented as of this encounter Procedures Procedure Name Priority Date/Time Associated Diagnosis Comments RAD ONC ARIA SESSION SUMMARY 07/22/2017 2:01 PM CIVIL LITIGATION ATTORNEY documented in this encounter Results * RAD ONC ARIA SESSION SUMMARY (07/22/2017 2:01 PM CIVIL LITIGATION ATTORNEY) Course Name C1 RT LUNG 2017 ARIA Course Plan Date 06/14/2017 1:33 PM ARIA Elapsed Days 31 ARIA Treatment Site PTV lung ARIA Dose Given To Date (cGy) 4,600 ARIA Session Dosage Given (cGy) 200 ARIA Plan ID R LUNG_REPLA N ARIA Fractions Treated 10 ARIA Prescribed Dose Per Fraction (cGy) 200 ARIA Prescribed Total Dose (cGy) 3,400 ARIA 07/22/2017 2:01 PM CIVIL LITIGATION ATTORNEY us Not In File Miscellaneous RADIATION ONCOLOGY ORD ERABLES Final Result ARIA documented in this encounter Visit Diagnoses Not on filedocumented in this encounter Care Teams Cell Plasterer Relationship Specialty Start Date End Date Paula Robles NP PCP - General 05/31/17 documented as of this encounter
--- OUTSIDE RECORDS SUMMARY | 2024-08-06 17:38 | XMS_ITS | Encounter Summary ---
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 Gender Identity Not on file Sexual Orientation Not on file documented as of this encounter Plan of Treatment Not on file documented as of this encounter Procedures Procedure Name Priority Date/Time Associated Diagnosis Comments RAD ONC ARIA SESSION SUMMARY 07/21/2017 1:55 PM PELLET PRESS OPERATOR documented in this encounter Results * RAD ONC ARIA SESSION SUMMARY (07/21/2017 1:55 PM PELLET PRESS OPERATOR) Course Name C1 RT LUNG 2017 ARIA Course Plan Date 06/14/2017 1:33 PM ARIA Elapsed Days 30 ARIA Treatment Site PTV lung ARIA Dose Given To Date (cGy) 4,400 ARIA Session Dosage Given (cGy) 200 ARIA Plan ID R LUNG_REPLA N ARIA Fractions Treated 9 ARIA Prescribed Dose Per Fraction (cGy) 200 ARIA Prescribed Total Dose (cGy) 3,400 ARIA 07/21/2017 1:55 PM PELLET PRESS OPERATOR us Not In File Miscellaneous RADIATION ONCOLOGY ORD ERABLES Final Result ARIA documented in this encounter Visit Diagnoses Not on filedocumented in this encounter Care Teams Covered Buckle Assembler Relationship Specialty Start Date End Date Paula Robles NP PCP - General 05/31/17 documented as of this encounter
--- OUTSIDE RECORDS SUMMARY | 2024-08-06 17:38 | XMS_ITS | Encounter Summary ---
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 FUR DRY CLEANER 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 Gender Identity Not on file Sexual Orientation Not on file documented as of this encounter Plan of Treatment Not on file documented as of this encounter Procedures Procedure Name Priority Date/Time Associated Diagnosis Comments RAD ONC ARIA SESSION SUMMARY 07/20/2017 1:53 PM FUR DRY CLEANER HAND documented in this encounter Results * RAD ONC ARIA SESSION SUMMARY (07/20/2017 1:53 PM FUR DRY CLEANER HAND) Course Name C1 RT LUNG 2017 ARIA Course Plan Date 06/14/2017 1:33 PM ARIA Elapsed Days 29 ARIA Treatment Site PTV lung ARIA Dose Given To Date (cGy) 4,200 ARIA Session Dosage Given (cGy) 200 ARIA Plan ID R LUNG_REPLA N ARIA Fractions Treated 8 ARIA Prescribed Dose Per Fraction (cGy) 200 ARIA Prescribed Total Dose (cGy) 3,400 ARIA 07/20/2017 1:53 PM FUR DRY CLEANER HAND us Not In File Miscellaneous RADIATION ONCOLOGY ORD ERABLES Final Result ARIA documented in this encounter Visit Diagnoses Not on filedocumented in this encounter Care Teams Inspector Barrel Relationship Specialty Start Date End Date Paula Robles NP PCP - General 05/31/17 documented as of this encounter
--- OUTSIDE RECORDS SUMMARY | 2024-08-06 17:38 | XMS_ITS | Encounter Summary ---
Author Organization [facility] Healthcare Address [address] [place] [address] Care Team Providers Care Extractor And Wringer Operator Name Role Phone No, Physician Primary Care Provider [phone] Encounter Details Date Type Department Care Team (Latest Contact Info) Description 05/26/2017 3:29 PM CDT - 05/26/2017 11:59 PM CDT Hospital Encounter [facility] Carl Rain MD [address] [place], [place] [id number] Discharge Disposition: Discharge to home or self care Social History Tobacco Use Types Packs/Day Years Used Date Smoking Tobacco: Never Assessed Comments Unknown Sex and Gender Information Value Date Recorded Sex Assigned at Not on file Legal Sex Female 1:02 AM SPECIAL EDUCATION SUPERINTENDENT Gender Identity Not on file Sexual [...] Diagnosis Comments MRI BRAIN W WO CONTRAST Routine 05/26/2017 10:29 PM CDT EGFR Routine 05/26/2017 4:01 PM CDT CREATININE, WHOLE BLOOD Routine 05/26/2017 4:01 PM CDT DISCHARGE LABORATORY CUMULATIVE REPORT 05/26/2017 12:00 AM CDT documented in this encounter Results * MRI Brain W WO Contrast (05/26/2017 10:29 PM CDT) Anatomical Region Laterality Modality Head and Neck N/A Magnetic Resonan ce 05/26/2017 10:2 9 PM CDT Narrative 05/27/2017 2:32 PM CDT DATE OF EXAM: ??May 26 2017 ??5:29PM Acc#: ??[id number] ??EMR 0021 - MR Brain W/WO ?? 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 Malignant neoplasm of overlapping sites of right bronchus and lung RESULT: EXAMINATION: MR Brain are seen without significant CORD dated 05/26/2017 5:29 PM HISTORY: 67-year-old woman with known lung carcinoma for metastatic evaluation TECHNIQUE: Multiplanar multisequence spin-echo images obtained. ??Following 20 mL of DOTAREM, repeat T1-weighted images obtained. FINDINGS: Ventricles and sulci are upper limits of normal. ??There is no midline shift mass effect or hemorrhage. ??FLAIR images demonstrate a few isolated small areas of T2 hyperintensity in the subcortical and periventricular deep white matter. ??Additional areas are seen in the external capsule on the left side, the anterior portion of the lentiform nucleus on the right side in the right caudate nucleus head. ??T2-weighted images demonstrate similar findings. ??Normal mancilla-white matter differentiation. ??Normal flow-voids are seen within the [place] of [place]. ??Brainstem and cerebellar hemispheres are normal. ??Paranasal sinuses and mastoid air cells normally aerated pituitary Fosters normal. ??Aqueduct is patent. ??The 4th ventricle and craniovertebral junction are normal. ??Diffusion-weighted images are normal without abnormal restricted diffusion. With contrast administration no abnormal parenchymal or meningeal enhancement is seen. 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 ??NO EVIDENCE TO SUGGEST METASTATIC DISEASE. Electronically signed by: Avni Hernandez M.D. ? RELIEF MATE: ??PSC TRANSCRIBE DATE/TIME: ??May 27 2017 ??9:30A RADIOLOGIST: ??AVNI HERNANDEZ M.D. ??READ ON: ??May 27 2017 ??9:32A ORDERING DR: CARL RAIN M.D. ? THIS DOCUMENT HAS BEEN ELECTRONICALLY SIGNED BY: ??DAVID Alonzo, AVNI ??ON: ??May 27 2017 ??9:30A Attending: ??RENETTA, ??CARL Requesting: ??RENETTA, ??CARL Requesting Fax: ??[phone] Attending Fax: ??[phone] Attending ID: ??[id number] Requesting ID: ??[id number] Report To 1 ID: ?? Report To 1 Name: ??, ?? Report To 1 FAX: ??-- Report To 2 ID: ?? Report To 2 Name: ??, ?? Report To 2 FAX: ??-- NextGen Order #: ?? 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 Following 20 mL of DOTAREM, repeat T1-weighted images obtained. FINDINGS: Ventricles and sulci are upper limits of normal. There is no midline shift mass effect or hemorrhage. FLAIR images demonstrate a few isolated small areas of T2 hyperintensity in the subcortical and periventricular deep white matter. Additional areas are seen in the external capsule on the left side, the anterior portion of the lentiform nucleus on the right side in the right caudate nucleus head. T2-weighted images demonstrate similar findings. Normal mancilla-white matter differentiation. Normal flow-voids are seen within the [place] of [place]. Brainstem and cerebellar hemispheres are normal. Paranasal sinuses and mastoid air cells normally aerated pituitary Fosters normal. Aqueduct is patent. The 4th ventricle and craniovertebral junction are normal. Diffusion-weighted images are normal without abnormal restricted diffusion. With contrast administration no abnormal parenchymal or meningeal enhancement is seen. 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 NO EVIDENCE TO SUGGEST METASTATIC DISEASE. Electronically signed by: Avni Hernandez M.D. RELIEF MATE: Pick1 TRANSCRIBE DATE/TIME: May 27 2017 9:30A RADIOLOGIST: AVNI HERNANDEZ M.D. READ ON: May 27 2017 9:32A ORDERING DR: CARL RAIN M.D. THIS DOCUMENT HAS BEEN ELECTRONICALLY SIGNED BY: AVNI HERNANDEZ M.D. ON: May 27 2017 9:30A Attending: CARL RAIN Requesting: CARL RAIN Requesting Attending Attending ID: [id number] Requesting ID: [id number] Report To 1 ID: Report To 1 Name: , Report To 1 FAX: -- Report To 2 ID: Report To 2 Name: , Report To 2 FAX: -- NextGen Order #: Carl Rain MD IMG MRI PROCEDURES Fin al Result * eGFR (05/26/2017 4:01 PM CDT) eGFR >60 mL/min/1.73 m2 [facility] Blood specimen (specimen) 05/26/2017 4:01 PM CDT 05/26/2017 4:06 PM CDT Carl Rain MD LAB BLOOD ORDERABLES F inal Result Performing Organization Address City/[facility]/ZIP Co de Phone Number [facility] CEBALLOS [address] [place] [address] * Creatinine, whole blood (05/26/2017 4:01 PM CDT) Creatinine, bld 0.64 0.60 - 1.30 mg/dL [facility] Blood specimen (specimen) 05/26/2017 4:01 PM CDT 05/26/2017 4:01 PM CDT Carl Rain MD LAB BLOOD ORDERABLES F inal Result Performing Organization Address [facility] Co de Phone Number ARSENIO CEBALLOS [phone] [place] [address] * DISCHARGE LABORATORY CUMULATIVE REPORT (05/26/2017 12:00 AM CDT) Narrative 05/26/2017 12:00 AM CDT Ordered by an unspecified provider. Historical Provider LAB BLOOD ORDERABLES Sada l Result documented in this encounter Visit Diagnoses Not on filedocumented in this encounter Care Teams Extractor And Wringer Operator Relationship Specialty Start Date End Date No, Physician PCP - General 05/26/17 05/30/17 documented as of this encounter
--- OUTSIDE RECORDS SUMMARY | 2024-08-06 17:38 | XMS_ITS | Encounter Summary ---
Author Organization [facility] Healthcare Address [address] [place] [address] Care Team Providers Care Diet Attendant Name Role Phone Paula Robles Eleni MEAL TEMPERER Primary Care Provider + Encounter Details Date Type Department Care Team (Late st Contact Info) Description 07/12/2017 Orders Only RAD ONC TREATMENTS Miscellaneous, Not In File Social History Tobacco Use Types Packs/Day Years Used Date Smoking Tobacco: Never Assessed Comments Unknown Sex and Gender Information Value Date Recorded Sex Assigned at Not on file Legal Sex Female 1:02 AM IDENTIFICATION AND RECORDS COMMANDER Gender Identity Not on file Sexual Orientation Not on file documented as of this encounter Plan of Treatment Not on file documented as of this encounter Procedures Procedure Name Priority Date/Time Associated Diagnosis Comments RAD ONC ARIA SESSION SUMMARY 07/12/2017 8:01 AM IDENTIFICATION AND RECORDS COMMANDER documented in this encounter Results * RAD ONC ARIA SESSION SUMMARY (07/12/2017 8:01 AM IDENTIFICATION AND RECORDS COMMANDER) Course Name C1 RT LUNG 2017 ARIA Course Plan Date 06/14/2017 1:33 PM ARIA Elapsed Days 21 ARIA Treatment Site PTV lung ARIA Dose Given To Date (cGy) 3,000 ARIA Session Dosage Given (cGy) 200 ARIA Plan ID R LUNG_REPLA N ARIA Fractions Treated 2 ARIA Prescribed Dose Per Fraction (cGy) 200 ARIA Prescribed Total Dose (cGy) 3,400 ARIA 07/12/2017 8:01 AM IDENTIFICATION AND RECORDS COMMANDER us Not In File Miscellaneous RADIATION ONCOLOGY ORD ERABLES Final Result ARIA documented in this encounter Visit Diagnoses Not on filedocumented in this encounter Care Teams Diet Attendant Relationship Specialty Start Date End Date Paula Robles NP PCP - General 05/31/17 documented as of this encounter
--- OUTSIDE RECORDS SUMMARY | 2024-08-06 17:38 | XMS_ITS | Encounter Summary ---
Author Organization [facility] Healthcare Address [address] [place] [address] Care Team Providers Care Case Management Manager Name Role Phone TravisPaula Eleni CHIEF WHEELAGE CLERK Primary Care Provider + Encounter Details Date Type Department Care Team (Latest Contact Info) Description 07/09/2017 10:54 AM HULL OUTFIT SUPERVISOR - 07/09/2017 11:59 PM HULL OUTFIT SUPERVISOR Hospital Encounter [facility] Carl Rain MD [address] [place], [place] [id number] Discharge Disposition: Discharge to home or self care Social History Tobacco Use Types Packs/Day Years Used Date Smoking Tobacco: Never Assessed Comments Unknown Sex and Gender Information Value Date Recorded Sex Assigned at Not on file Legal Sex Female 1:02 AM HULL OUTFIT SUPERVISOR Gender Identity Not on file Sexual [...] Procedure Name Priority Date/Time Associated Diagnosis Comments DISCHARGE LABORATORY CUMULATIVE REPORT 07/10/2017 12:00 AM HULL OUTFIT SUPERVISOR CT CHEST ABDOMEN W CONTRAST Routine 07/09/2017 6:53 PM HULL OUTFIT SUPERVISOR CREATININE, WHOLE BLOOD Routine 07/09/2017 11:05 AM HULL OUTFIT SUPERVISOR documented in this encounter Results * DISCHARGE LABORATORY CUMULATIVE REPORT (07/10/2017 12:00 AM HULL OUTFIT SUPERVISOR) Narrative 07/10/2017 12:00 AM HULL OUTFIT SUPERVISOR Ordered by an unspecified provider. us Historical Provider LAB BLOOD ORDERABLES Sada l Result * CT Chest Abdomen W Contrast (07/09/2017 6:53 PM HULL OUTFIT SUPERVISOR) Anatomical Region Laterality Modality Body N/A Computed Tomogra phy 07/09/2017 6:53 PM HULL OUTFIT SUPERVISOR Narrative 07/09/2017 7:53 PM HULL OUTFIT SUPERVISOR CT Chest/Abd W ??[id number] ??Acc#: ??[id number] DATE OF EXAM: ??Jul ??2016 ?? CT Chest/Abd W ??[id number] HISTORY: ASSESS TREATMENT RESPONSE. ??Lung carcinoma. TECHNIQUE: Helically acquired axial images were obtained from the lung apices to the iliac crests. CONTRAST: 100 mL Optiray 320, Oral contrast COMPARISON: None available. FINDINGS: CHEST: A large mass is present in the right upper lobe measuring at least 4.2 x 3.5 cm and tethering the hilum with cut off of the right upper lobe bronchus. ??Volume loss of the right upper lobe is present. Confluent adenopathy of the right hilum is present. ??A tiny right pleural effusion is present. ??There are no additional focal lung nodules or infiltrates. ??Diffuse mediastinal vascular calcification is present. ??There is no evidence of mediastinal lymphadenopathy. The axillary and chest wall structures appear normal. ABDOMEN AND PELVIS: The liver, spleen, pancreas, adrenals and kidneys are normal. ??Gallstones lie dependently within the gallbladder. The visualized small and large bowel demonstrate normal caliber without evidence of obstruction. ??Diffuse vascular calcification is present. There is no evidence of ascites or adenopathy. IMPRESSION: ?? 1. ??LARGE RIGHT UPPER LOBE MASS WITH ATELECTASIS, BRONCHIAL CUT OFF AND CONFLUENT HILAR LYMPHADENOPATHY CONSISTENT WITH CARCINOMA. 2. ??TINY RIGHT PLEURAL EFFUSION. 3. ??DIFFUSE VASCULAR CALCIFICATION. 4. ??CHOLELITHIASIS. Electronically signed by: Al Yarbrough M.D. Interpreting Physician: ??DR BRENNA ZAFAR M.D. ??Read on: ??Dec ??1 2017 ?? 1:53P Transcribed by: ??PSC ??On: Dec ??1 2017 ??1:51P Approved Electronically by: ??ANDRADE Alonzo, DR CEJA ??on: ??Dec ??1 2017 ?? 1:51P Ordering DR: CALR RAIN Attending DR: CARL RAIN Attending: ??CARL RAIN Requesting: ??CARL RAIN Requesting Fax: ??[phone] Attending Fax: ??[phone] Attending ID: ??[id number] Requesting ID: ??[id number] Report To 1 ID: ??[id number] Report To 1 Name: ??CARL RAIN Report To 1 FAX: ??[phone] NextGen Order #: ?? Procedure Note Miscellaneous, Not In File - 07/09/2017 CT Chest/Abd W [id number] Acc#: [id number] DATE OF EXAM: Jul [address] Chest/Abd W [id number] HISTORY: ASSESS TREATMENT RESPONSE. Lung carcinoma. TECHNIQUE: Helically acquired axial images were obtained from the lung apices to the iliac crests. CONTRAST: 100 mL Optiray 320, Oral contrast COMPARISON: None available. FINDINGS: CHEST: A large mass is present in the right upper lobe measuring at least 4.2 x 3.5 cm and tethering the hilum with cut off of the right upper lobe bronchus. Volume loss of the right upper lobe is present. Confluent adenopathy of the right hilum is present. A tiny right pleural effusion is present. There are no additional focal lung nodules or infiltrates. Diffuse mediastinal vascular calcification is present. There is no evidence of mediastinal lymphadenopathy. The axillary and chest wall structures appear normal. ABDOMEN AND PELVIS: The liver, spleen, pancreas, adrenals and kidneys are normal. Gallstones lie dependently within the gallbladder. The visualized small and large bowel demonstrate normal caliber without evidence of obstruction. Diffuse vascular calcification is present. There is no evidence of ascites or adenopathy. IMPRESSION: 1. LARGE RIGHT UPPER LOBE MASS WITH ATELECTASIS, BRONCHIAL CUT OFF AND CONFLUENT HILAR LYMPHADENOPATHY CONSISTENT WITH CARCINOMA. 2. TINY RIGHT PLEURAL EFFUSION. 3. DIFFUSE VASCULAR CALCIFICATION. 4. CHOLELITHIASIS. Electronically signed by: Al Yarbrough M.D. Interpreting Physician: DR BRENNA ZAFAR M.D. Read on: Jul 09 2017 1:53P Transcribed by: CHERELLE On: Jul 09 2017 1:51P Approved Electronically by: ANDRADE Alonzo, DR CEJA on: Jul 09 2017 1:51P Ordering DR: CARL RAIN Attending DR: CARL RAIN Attending: CARL RAIN Requesting: CARL RAIN Requesting Attending Attending ID: [id number] Requesting ID: [id number] Report To 1 ID: [id number] Report To 1 Name: CARL RAIN Report To 1 FAX: [phone] NextGen Order #: [id number] Rain MD IMG CT PROCEDURES Sada l Result * Creatinine, whole blood (07/09/2017 11:05 AM HULL OUTFIT SUPERVISOR) Creatinine, bld 0.61 0.60 - 1.30 mg/dL A[facility] RODRIGUEZ (DEANGELO) Blood specimen (specimen) 07/09/2017 11:05 AM HULL OUTFIT SUPERVISOR 07/09/2017 11:21 AM HULL OUTFIT SUPERVISOR Narrative A[facility]ENIO RODRIGUEZ (DEANGELO) - 07/09/2017 11:32 AM HULL OUTFIT SUPERVISOR Carl Rain MD LAB BLOOD ORDERABLES F inal Result [facility] ([facility]) 1 [facility] Department [place] [address] documented in this encounter Visit Diagnoses Not on filedocumented in this encounter Care Teams Case Management Manager Relationship Specialty Start Date End Date Paula Robles NP PCP - General 05/31/17 documented as of this encounter
--- OUTSIDE RECORDS SUMMARY | 2024-08-06 17:38 | XMS_ITS | Encounter Summary ---
Author Organization [facility] Healthcare Address [address] [place] [address] Care Team Providers Care Melter Caster Name Role Phone Paula Robles Eleni MANAGER SEARCH Primary Care Provider + Encounter Details Date Type Department Care Team (Latest Contact Info) Description 07/12/2017 11:18 AM PACKAGING COORDINATOR - 07/12/2017 11:59 PM [facility] Hospital Encounter [facility] OP INTERIM [phone] Carl Rain MD [address] [place], [place] [id number] Discharge Disposition: Discharge to home or self care Social History Tobacco Use Types Packs/Day Years Used Date Smoking Tobacco: Never Assessed Comments Unknown Sex and Gender Information Value Date Recorded Sex Assigned at Not on file Legal Sex Female 1:02 AM [facility] Gender Identity Not on file Sexual Orientation [...] Procedure Name Priority Date/Time Associated Diagnosis Comments XR CONSULT OF OUTSIDE FILMS (PEDS ONLY) Routine 07/12/2017 6:06 PM PACKAGING COORDINATOR documented in this encounter Results * XR Interpretation Of Outside Films (07/12/2017 6:06 PM PACKAGING COORDINATOR) Anatomical Region Laterality Modality N/A Radiographic Rosalia ging 07/12/2017 6:06 PM PACKAGING COORDINATOR Narrative 07/12/2017 9:45 PM PACKAGING COORDINATOR BRANDON BOWMAN M.D. CELIA ALANIZ M.D.PHD. FINAL REPORT The radiology attending physician has personally reviewed this study, and has reviewed and/or edited this written report and agrees with it. ACC# ??Date Time ??Exam [id number] Jul 12, 2017 12:06:00 [id number] PET Consult EXAMINATION: ??RADIOLOGY CONSULTATION ON OUTSIDE IMAGING STUDY STUDY INITIALLY PERFORMED: 05/11/2017, images acquired at [facility]. ?? TYPE OF STUDY: FDG-PET/CT. The images available for review consisted of axial attenuation-corrected and uncorrected PET images and axial CT images. ??Oral contrast administration was not performed. Intravenous contrast administration was not performed. The total scanned area was skull base to the proximal thighs. The mean liver SUV (reported for auditor/quality purposes) is 2.3. The study was interpreted on the [employer] workstation. The protocol was adequate to address the clinical question. ??The outside final report was not available at the time of this second opinion interpretation. 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 COMPARISON: No prior study is available for comparison FINDINGS: There is an FDG avid right upper lobe mass measuring approximately 5 x 3 cm, with SUV max of 13.22. There is a 2.4 x 2 cm subcarinal lymph node with FDG avidity, SUV max of 14.7. ??There is an FDG avid right paratracheal node with SUV max of seven-point I have, measuring 1.5 cm. ??Lateral to the primary mass is an area of collapsed lung with mild ??FDG avidity with a more focal area of increased FDG avidity which could represent an additional focus of disease versus post-ob strictive pneumonia. The most FDG-avid lesion is located in the subcarinal region, has a maximum SUV of 14.7, and approximate axial dimensions of 2.4 x [address] findings: There is collapse of the right upper lobe, distal to the lung mass. ??There are enlarged right paratracheal, subcarinal, and right hilar lymph nodes. There is mild atherosclerotic calcification of the thoracic aorta and moderate atherosclerotic calcification of the abdominal aorta. There is a small splenule anterior to the spleen. There are gallstones within the nondistended gallbladder. There is a fat-containing anterior abdominal wall hernia. There is diverticulosis without diverticulitis. IMPRESSION: ??1. ??FDG avid right upper lobe pulmonary mass with mass effect on the mainstem and right upper lobe bronchus resulting in right upper lobe collapse with associated right paratracheal and subcarinal lymphadenopathy consistent with primary lung cancer and kelsie metastatic disease, without PET evidence of distal metastatic disease. ?? 2. ??Focal area of increased FDG avidity in the peripheral collapse lung, which could represent an additional focus of disease versus post-obstrictive pneumonia. ??Attention on imaging follow-up. The findings, conclusions and recommendations within this report do not replace the initial findings, conclusions ??and recommendations made at the facility where the study was performed based upon the imaging and clinical condition at that time. ??Comparison with the prior report and clinical history is necessary. ??The provided images may or may not represent the [place] source data set and thus may contain changes that may lower the accuracy of this second-opinion interpretation. Electronically signed by: Brandon Bowman M.D. Requested By: CARL RAIN ??Shani. ? Dictated By: ?? CELIA ALANIZ M.D.PHD. ??on Jul ??2016 ??1:58P This document has been electronically signed by: BRANDON BOWMAN M.D. on Jul ??2016 ??3:43P [id number] BOWMAN M.D. CELIA ALANIZ M.D.PHD. FINAL REPORT The radiology attending physician has personally reviewed this study, and has reviewed and/or edited this written report and agrees with it. Attending: ??AISHAARAKONDA, ??CARL Requesting: ??DEVARAKONDA, ??CARL Requesting Fax: ?? Attending Fax: ?? Attending ID: ??[id number] Requesting ID: ??[id number] Report To 1 ID: ??[id number] ? Report To 1 Name: ??, ?? Report To 1 FAX: ?? NextGen Order #: ?? Procedure Note Miscellaneous, Not In File - 07/12/2017 BRANDON BOWMAN M.D. CELIA ALANIZ M.D.PHD. FINAL REPORT The radiology attending physician has personally reviewed this study, and has reviewed and/or edited this written report and agrees with it. ACC# Date Time Exam [id number] Jul 12, 2017 12:06:00 [id number] PET Consult EXAMINATION: RADIOLOGY CONSULTATION ON OUTSIDE IMAGING STUDY STUDY INITIALLY PERFORMED: 05/11/2017, images acquired at [facility]. TYPE OF STUDY: FDG-PET/CT. The images available for review consisted of axial attenuation-corrected and uncorrected PET images and axial CT images. Oral contrast administration was not performed. Intravenous contrast administration was not performed. The total scanned area was skull base to the proximal thighs. The mean liver SUV (reported for auditor/quality purposes) is 2.3. The study was interpreted on the [employer] workstation. The protocol was adequate to address the clinical question. The outside final report was not available at the time of this second opinion interpretation. 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 COMPARISON: No prior study is available for comparison FINDINGS: There is an FDG avid right upper lobe mass measuring approximately 5 x 3 cm, with SUV max of 13.22. There is a 2.4 x 2 cm subcarinal lymph node with FDG avidity, SUV max of 14.7. There is an FDG avid right paratracheal node with SUV max of seven-point I have, measuring 1.5 cm. Lateral to the primary mass is an area of collapsed lung with mild FDG avidity with a more focal area of increased FDG avidity which could represent an additional focus of disease versus post-ob strictive pneumonia. The most FDG-avid lesion is located in the subcarinal region, has a maximum SUV of 14.7, and approximate axial dimensions of 2.4 x [address] findings: There is collapse of the right upper lobe, distal to the lung mass. There are enlarged right paratracheal, subcarinal, and right hilar lymph nodes. There is mild atherosclerotic calcification of the thoracic aorta and moderate atherosclerotic calcification of the abdominal aorta. There is a small splenule anterior to the spleen. There are gallstones within the nondistended gallbladder. There is a fat-containing anterior abdominal wall hernia. There is diverticulosis without diverticulitis. IMPRESSION: 1. FDG avid right upper lobe pulmonary mass with mass effect on the mainstem and right upper lobe bronchus resulting in right upper lobe collapse with associated right paratracheal and subcarinal lymphadenopathy consistent with primary lung cancer and kelsie metastatic disease, without PET evidence of distal metastatic disease. 2. Focal area of increased FDG avidity in the peripheral collapse lung, which could represent an additional focus of disease versus post-obstrictive pneumonia. Attention on imaging follow-up. The findings, conclusions and recommendations within this report do not replace the initial findings, conclusions and recommendations made at the facility where the study was performed based upon the imaging and clinical condition at that time. Comparison with the prior report and clinical history is necessary. The provided images may or may not represent the [place] source data set and thus may contain changes that may lower the accuracy of this second-opinion interpretation. Electronically signed by: Brandon Bowman M.D. Requested By: CARL RAIN M.D. Dictated By: CELIA ALANIZ M.D.PHD. on Jul 12 2017 1:58P This document has been electronically signed by: BRANDON BOWMAN M.D. on Jul 12 2017 3:43P [id number] BOWMAN M.D. CELIA ALANIZ M.D.PHD. FINAL REPORT The radiology attending physician has personally reviewed this study, and has reviewed and/or edited this written report and agrees with it. Attending: CARL RAIN Requesting: CARL RAIN Requesting Fax: Attending Fax: Attending ID: [id number] Requesting ID: [id number] Report To 1 ID: [id number] Report To 1 Name: , Report To 1 FAX: NextGen Order #: Carl Rain MD IMG XR PROCEDURES Sada l Result documented in this encounter Visit Diagnoses Not on filedocumented in this encounter Care Teams Melter Caster Relationship Specialty Start Date End Date Paula Robles NP PCP - General 05/31/17 documented as of this encounter
[2024-08-06 17:39] LABS: Glucose Point of Care 145 mg/dl (65-105)
[2024-08-06] MEDS: SENNA/DOCUSATE SODIUM TABLET 1 TAB PO (20:19)
[2024-08-06] MEDS: ATORVASTATIN 10 MG TABLET PO (20:19)
[2024-08-07] VITALS (28 sets, daily range): BP systolic 99–156; BP diastolic 52–79; PULSE 74–105; RESP 16–27; TEMP 37.1–38.1; O2SAT 91–100
[2024-08-07] MEDS: cefTRIAXone 2 GM/NS 100 ML 2 GM/100 ML BAG IVPB (00:24)
[2024-08-07] MEDS: IPRATROPIUM 0.5 MG/ALBUTEROL SULFATE 2.5 MG AMPUL.NEB 3 ML INHALATION ×4 (02:12→20:13)
[2024-08-07] MEDS: ACETYLCYSTEINE 20% INHAL SOLN 800 MG/4 ML VIAL 200 MG INHALATION ×4 (02:12→20:13)
[2024-08-07 03:36] LABS: Glucose Point of Care 119 mg/dl (65-105)
[2024-08-07 03:49] LABS: Basophils Percent Auto 0.3 % (0.2-1.2); Eosinophils Absolute Auto 0.1 K/mm3 (0-0.3); Eosinophils Percent Auto 0.6 % (0-4.4); Hematocrit 40.6 % (37.0-47.0); Immature Granulocyte Percent A 5.8 % (0-0.5); Lymphocytes Percent Auto 12.2 % (18.3-44.2); Mean Corpuscular Hemoglobin 31.1 pg (26-34); Mean Corpuscular Volume 97.1 fl (80-100); Mean Platelet Volume 10.6 fl (7.4-10.4); Monocytes Absolute Auto 0.8 K/mm3 (0.1-0.6); Neutrophils Absolute Auto 10.4 K/mm3 (1.3-6.7); Neutrophils Percent Auto 75.1 % (45.5-73.1); Platelet Count Result 155 k/mm3 (150-375); Red Blood Count 4.18 M/mm3 (4.2-5.4); Red Cell Distribution Width 14.3 % (11.5-14.5); White Blood Count 13.9 K/mm3 (4.5-10.0)
[2024-08-07 04:01] LABS: Alanine Aminotransferase 166 U/L (6-35); Albumin Level 2.9 g/dL (3.5-5.1); Alkaline Phosphatase 90 U/L (38-126); Anion Gap -1 mmol/L (4-12); Aspartate Amino Transferase 44 U/L (14-36); Bilirubin,Total 0.8 mg/dL (0.2-1.3); Blood Urea Nitrogen 45 mg/dL (7-17); Calcium 9.1 mg/dL (8.4-10.2); Carbon Dioxide 39 mmol/L (22-30); Chloride 101 mmol/L (98-107); Estimated CRCL calculation 80 ml/min; Estimated Glomerular Filt Rate > 60; Glucose 112 mg/dL (65-110); Phosphorus 3.5 mg/dL (2.5-4.5); Potassium 4.2 mmol/L (3.4-5.0); Sodium 139 mmol/L (137-145)
[2024-08-07 04:45] LABS: Alveolar/Arterial O2 Gradient 153.4 mmHg; Base Excess ABG 6.1 mEq/l (+/-2.0); Carboxyhemoglobin 0.8 % THb (0-2.0); Fractional Inspired Oxygen 40 %; HCO3 ABG 30.7 mEq/l (22.0-26.0); Methemoglobin ABG 0.1 %THb (0-1.5); Oxygen Content ABG 18.4 %vol (16.0-22.0); Oxygen Saturation ABG 96.5 % (95.0-100.0); Oxyhemoglobin 95.2 % THb (90.0-100.0); PCO2 ABG 43.8 mmHg (35.0-45.0); PO2 ABG 81.4 mmHg (80.0-100.0); PO2 FiO2 Ratio Arterial Blood 2.04 %; Reduced Hemoglobin 3.9 %THb (0-5.0); Site Drawn RIGHT RADIAL; Total Hemoglobin 13.7 g/dL (12.0-18.0); pH ABG 7.463 (7.350-7.450)
[2024-08-07 04:46] LABS: Arterial Blood Gas PEEP 5 cmH2O; Arterial Blood Gas Tidal Volume 480 ml; Arterial Blood Gas Vent Mode CMV; Arterial Blood Gas Ventilator rate 16 /MIN; Device VENTILATOR; Modified Allen's Test Pass
[2024-08-07] MEDS: CENTRAL LINE FLUSH 10 ML IV PUSH ×3 (06:14→21:17)
[2024-08-07] MEDS: lisinopriL 10 MG TABLET PO (08:39)
[2024-08-07] MEDS: ENOXAPARIN 40 MG/0.4 ML SYRINGE SUB-Q (08:39)
[2024-08-07] MEDS: polyethylene glycoL 3350 17 GM POWD.PACK PO (08:40)
[2024-08-07] MEDS: methylPREDNISolone SOD SUCC 40 MG VIAL 20 MG IV PUSH (08:40)
[2024-08-07] MEDS: PANTOPRAZOLE SODIUM IV 40 MG VIAL IV PUSH (08:40)
[2024-08-07] MEDS: MINERAL OIL/WHITE PETROLATUM OINTMENT 1 APPLIC EACH EYE (08:41)
--- NOTE | 2024-08-07 11:41 | PCFNICU ---
ICU Rounding Note: Pt current nutrition is Vital 1.2 @ 45 ml/h with Giancarlo BID for additional 90 kcal, 2.5 g protein and Prosource once per day for additional 80 kcal and 20 g protein each . Nutrition recommendation: No new nutrition recommendations. Continue with current nutrition care plan and orders. Agree with orders Last recorded weight is 103.9 kg. Bowel Motility: +1 BM 08/05/24 Labs Reviewed: Alb 2.9 kcal, BUN 45, Cre 0.6, Glu 112 Meds Noted: Fentanyl, protonix Skin: DTI coccyx Additional Notes: Pt will be transferred to [place] as soon as bed is available. No new nutrition plan. Vital 1.2 with Prosource x1 per day provides 1380 kcal (~87% EER) , 94 g protein (~90% estimated needs @ 1 g/kg), 803 ml free water. Following daily in ICU rounds. Will monitor weight, labs, skin, diet orders, meds every Wednesday and Wednesday. .
[2024-08-07 11:58] LABS: Glucose Point of Care 163 mg/dl (65-105)
--- NOTE | 2024-08-07 12:01 | P.PNINT_ITS ---
Progress Note: A&P Assessment and Plan (1) Acute hypercapnic respiratory failure: Code(s): J96.02 - Acute respiratory failure with hypercapnia Status: Acute Assessment and Plan: 07/30: Patient presented with acute hypoxic and hypercarbic respiratory failure. 07/30: Failed trial of BiPAP in the ER and was intubated -currently on CMV mode of ventilation, peep of 5, 30% FiO2, wean O2 to maintain O2 sats > 90-92%, -no wheezing, continue to wean steroids to off -continue ceftriaxone, azithromycin (07/30) -discontinue vancomycin (08/03) -influenza, RSV, COVID negative -secretions have improved with Mucomyst and Pulmozyme -continue DuoNebs -08/03: Status post bronchoscopy,, was also present in the room with Dr. Smith, right middle and lower lobe collapse he, increased secretions, was able to get a BAL and sent for Gram stain and culture -08/04: CT scan of chest as under, currently sedated with fentanyl and propofol infusion, have asked the bedside RN to start decreasing the propofol and fentanyl and place patient on Precedex infusion, will try SBT today 08/05: Patient responded well to diuresis, was placed on SBT, tolerated around 2 hours but had developed respiratory distress, tachycardic, tachypnea and was switched back to CMV mode of ventilation 08/06: Patient again responded well to diuresis and was in negative fluid balance. Was placed on pressure support ventilation 10/5 which was further decreased to 8/5. Tolerated well for around 2 hours and she was in respiratory distress with tachycardia, tachypnea so was placed back on the CMV mode 08/07: Patient sleepy this morning, did not tolerate PSV or ASV mode, will try again later in the more Right middle and lower lobe collapse likely causing issues with liberation from the ventilator, discussed with sales review clerk at [facility], patient was accepted, Interventional pulmonology will consult, accepting physician, Dr. Malika Glover. Patient will be transferred once bed is available 08/04: CT chest noncontrast IMPRESSION: 1. Mild groundglass opacities in the lower lobes, consistent with pneumonia. 2. 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 Persistent complete collapse of right middle lobe. 3. Tracheobronchomalacia. 4. Small pleural effusions. 5. Mild emphysema. (2) Acute exacerbation of chronic obstructive pulmonary disease: Code(s): J44.1 - Chronic obstructive pulmonary disease with (acute) exacerbation Status: Acute Assessment and Plan: Continue bronchodilators, currently on mechanical ventilation -steroids will be discontinued (3) Pneumonia: Code(s): J18.9 - Pneumonia, unspecified organism Status: Acute Assessment and Plan: Continue antibiotics, bronchodilators -07/30: Preliminary blood cultures are negative x2 -07/30: Urine cultures are negative -08/01: Sputum cultures no growth so far (4) Diabetes: Code(s): E11.9 - Type 2 diabetes mellitus without complications Status: Acute Assessment and Plan: Continue sliding scale insulin and Accu-Cheks -hemoglobin A1c 5.7 this admission (5) Elevated troponin: Code(s): R79.89 - Other specified abnormal findings of blood chemistry Status: Acute Assessment and Plan: Elevated troponin, trending down, likely related to type 2 infarct secondary severe hypoxia as patient was saturating 44% on room air upon arrival of the EMS at her house -there was no complains of chest pain -severely reduced right systolic function: appreciate cardiology evaluation and recommendations, -continue diuresis -continue lisinopril 08/01: Echocardiogram Summary 1. Very technically difficult study with limited views. 2. The left ventricle grossly appears normal size and systolic function in the available and technically difficult views that were obtained in this study. 3. The right ventricle appears dilated with severely reduced systolic function in the available and technically difficult views that were obtained in this study. 4. Dilated inferior vena cava with <50% collapse upon inspiration consistent with significantly elevated right atrial pressure, 15 mmHg. (6) Electrolyte abnormality: Code(s): E87.8 - Other disorders of electrolyte and fluid balance, not elsewhere classified Status: Acute Assessment and Plan: Potassium and magnesium normalized after replacement Plan DVT prophylaxis: Lovenox Stress ulcer prophylaxis: Protonix Nutrition: Tolerating tube feeds, continue Code Status: Full code Critical Care Time Spent: 34 minutes 08/07:Discussed with spouse and rounds, updated with patient's condition and plan of care. He is aware that patient has been accepted to [facility] and will be transferred once they have bed available for the patient. 08/06: Discussed with spouse and daughter in rounds and updated them with patient's condition and plan of care. They are aware that patient is failing her her breathing trials,, discussed with them regarding transferring the patient to [place] which she has had her treatment for her lung cancer and radiation, for evaluation by Interventional pulmonology for the collapse of her right middle and lower lobe. The and the daughter are agreeable. I called [facility] and patient has been accepted to the ICU, attending/accepted physician is Dr. Lopez. Due to a high probability of clinically significant, life threatening deterioration, the patient required my highest level of preparedness to intervene emergently and I personally spent this critical care time directly and personally managing the patient. This critical care time included obtaining a history; examining the patient; pulse oximetry; ordering and review of studies; arranging urgent treatment with development of a management plan; evaluation of patient's response to treatment; frequent reassessment; and discussions with other providers. It was exclusive of separately billable procedures and treating other patients and teaching time. Please see Assessment and Plan section and the rest of the note for further information on patient assessment and treatment This dictation may have been done utilizing a voice recognition system. Attempts have been made to correct errors. However, there may be uncorrected grammatical, spelling, and recognitions errors present. Subjective Date/time seen: 08/07/24 12:01 Interval history: Reason for consult: Hypercapnic respiratory failure requiring intubation in the ER after failing BiPAP, COPD exacerbation, pneumonia 07/30: Intubated 08/03: Bronchoscopy 08/07/2024: Patient seen and examined the ICU, remains intubated on CMV mode of ventilation, peep of 5, 40% FiO2. Off all sedation >72 hours. Patient is awake, follows simple commands in all extremities. Urine output has been adeq uate in response to diuresis, with negative fluid balance in the last 24 hours. ETT secretions are not think any more. Tolerating tube feeds, positive bowel movement, hemodynamically stable, T-max of 100.6? on 1 occasion Review of Systems Review of Systems: ROS unobtainable: Yes unobtainable due to endotracheal tube, unobtainable due to medical condition and unobtainable due to mental status Exam Narrative: General: Intubated, is awake, in no acute distress HEENT:? Pupils equal and reactive, sclerae is care, ETT in place Neck:? Supple Respiratory:? Coarse breath sounds at bases bilaterally, right > left. No wheezing this morning, otherwise adequate air entry Cardiac:? S1-S2 normal, regular rate and rhythm Abdomen:? Soft, nontender, nondistended, obese, normoactive bowel sounds Extremities:? No edema, palpable pedal pulse Neuro:? Patient is intubated, off sedation, follows simple commands in all extremities and nods to questions Skin:? No skin lesions noted Psych:? Unable to assess at this time Objective Data Vital Signs Vital Signs: Vital Signs - 24 hr 08/06/24 12:50 08/06/24 13:56 08/06/24 13:56 Temperature Pulse Rate 96 96 Respiratory Rate 17 Blood Pressure Pulse Oximetry 94 Oxygen Delivery Mechanical Ventilation Fraction of Inspired Oxygen 40 40 08/06/24 14:00 08/06/24 14:00 08/06/24 16:00 Temperature Pulse Rate 90 90 Respiratory Rate 16 Blood Pressure 117/57 L Pulse Oximetry 94 Oxygen Delivery Fraction of Inspired Oxygen 40 08/06/24 16:00 08/06/24 16:00 08/06/24 16:00 Temperature 99.0 F Pulse Rate 96 96 Respiratory Rate 18 Blood Pressure 136/64 Pulse Oximetry 93 93 Oxygen Delivery Mechanical Ventilation Fraction of Inspired Oxygen 40 08/06/24 17:15 08/06/24 18:00 08/06/24 18:00 Temperature Pulse Rate 97 89 89 Respiratory Rate 16 Blood Pressure 125/62 Pulse Oximetry 95 94 Oxygen Delivery Mechanical Ventilation Fraction of Inspired Oxygen 40 08/06/24 20:00 08/06/24 20:00 08/06/24 20:00 Temperature 98.7 F Pulse Rate 95 94 Respiratory Rate 17 Blood Pressure 136/62 Pulse Oximetry 94 Oxygen Delivery Fraction of Inspired Oxygen 40 08/06/24 20:00 08/06/24 20:20 08/06/24 20:45 Temperature Pulse Rate 94 90 94 Respiratory Rate 16 16 Blood Pressure Pulse Oximetry 95 95 Oxygen Delivery Mechanical Ventilation Mechanical Ventilation Fraction of Inspired Oxygen 40 40 08/06/24 20:55 08/06/24 22:00 08/06/24 22:00 Temperature Pulse Rate 88 96 96 Respiratory Rate 16 16 Blood Pressure 137/59 L Pulse Oximetry 94 Oxygen Delivery Fraction of Inspired Oxygen 08/06/24 23:05 08/07/24 00:00 08/07/24 00:00 Temperature 99.0 F Pulse Rate 95 91 91 Respiratory Rate 16 16 Blood Pressure 133/56 L Pulse Oximetry 94 93 95 Oxygen Delivery Mechanical Ventilation Mechanical Ventilation Fraction of Inspired Oxygen 40 40 08/07/24 00:00 08/07/24 00:00 08/07/24 02:00 Temperature Pulse Rate 88 88 Respiratory Rate Blood Pressure Pulse Oximetry Oxygen Delivery Fraction of Inspired Oxygen 40 08/07/24 02:00 08/07/24 02:12 08/07/24 02:12 Temperature Pulse Rate 88 92 88 Respiratory Rate 16 16 Blood Pressure 127/57 L Pulse Oximetry 95 95 Oxygen Delivery Mechanical Ventilation Fraction of Inspired Oxygen 40 08/07/24 02:20 08/07/24 04:00 08/07/24 04:00 Temperature 100.6 F H Pulse Rate 86 88 88 Respiratory Rate 16 16 16 Blood Pressure 133/58 L Pulse Oximetry 94 95 Oxygen Delivery Mechanical Ventilation Fraction of Inspired Oxygen 40 08/07/24 04:00 08/07/24 04:00 08/07/24 04:49 Temperature Pulse Rate 92 85 Respiratory Rate Blood Pressure Pulse Oximetry 94 Oxygen Delivery Mechanical Ventilation Fraction of Inspired Oxygen 40 40 08/07/24 06:00 08/07/24 06:00 08/07/24 08:00 Temperature 98.8 F Pulse Rate 93 84 74 Respiratory Rate 16 16 Blood Pressure 126/64 117/57 L Pulse Oximetry 96 97 Oxygen Delivery Fraction of Inspired Oxygen 08/07/24 08:00 08/07/24 08:00 08/07/24 08:00 Temperature Pulse Rate 74 Respiratory Rate Blood Pressure Pulse Oximetry Oxygen Delivery Mechanical Ventilation Fraction of Inspired Oxygen 35 35 08/07/24 08:41 08/07/24 08:41 08/07/24 08:51 Temperature Pulse Rate 79 79 79 Respiratory Rate 16 16 Blood Pressure Pulse Oximetry 97 Oxygen Delivery Mechanical Ventilation Fraction of Inspired Oxygen 40 08/07/24 09:05 08/07/24 10:00 08/07/24 10:00 Temperature Pulse Rate 92 92 Respiratory Rate 17 Blood Pressure 148/70 H Pulse Oximetry 94 94 Oxygen Delivery Mechanical Ventilation Fraction of Inspired Oxygen 35 08/07/24 10:57 08/07/24 11:17 Temperature Pulse Rate 93 90 Respiratory Rate Blood Pressure Pulse Oximetry 93 93 Oxygen Delivery Mechanical Ventilation Mechanical Ventilation Fraction of Inspired Oxygen 35 35 Intake/Output Intake/Output: Intake & Output 08/04/24 08/05/24 08/06/24 08/07/24 23:59 23:59 23:59 23:59 Intake Total 2293.9 1429.4 1330 770 Output Total 3175 3750 1975 1050 [facility]881.1 -2320.6 -645 -280 Meds/Results Medications: Active Medications Generic Name Dose Route Start Last Admin Trade Name Freq PRN Reason Stop Dose Admin Acetaminophen 650 mg 08/05/24 23:28 08/06/24 08:47 Acetaminophen Elixir 325 Mg/10.15 Ml Udc PO 650 mg Q6H PRN Administration Mild Pain (1-3) or Fever Acetylcysteine 200 mg 08/01/24 08:00 08/07/24 08:38 Acetylcysteine 20% Inhal Soln 800 Mg/4 Ml Vial INHALATION 200 mg Q6HRT RAISSA Administration Albuterol/Ipratropium 3 ml 08/01/24 14:00 08/07/24 08:38 Ipratropium 0.5 Mg/Albuterol Sulfate 2.5 Mg Ampul.Neb 3 Ml INHALATION 3 ml Q6HRT RAISSA Administration Atorvastatin Calcium 10 mg 07/31/24 21:00 08/06/24 20:19 Atorvastatin 10 Mg Tablet PO 10 mg QHS RAISSA Administration Bisacodyl 10 mg 07/30/24 20:15 Bisacodyl 10 Mg Suppository RECTAL ONCE PRN Constipation Dextrose 12.5 gm 07/31/24 00:46 Dextrose 50% 25 Gm/50 Ml Syringe IV PUSH PRN PRN Hypoglycemia Protocol Enoxaparin Sodium 40 mg 07/31/24 09:00 08/07/24 08:39 Enoxaparin 40 Mg/0.4 Ml Syringe SUB-Q 40 mg DAILY RAISSA Administration Fluticasone/Umeclidinium/Vilanterol 1 puff 07/31/24 09:45 08/07/24 08:37 Fluticasone/Umeclidin/Vilanter 100-62.5-25 Mcg Ellipta INHALATION Not Given DAILYRT RAISSA Glucagon 1 mg 07/31/24 00:46 Glucagon For Inj 1 Mg Vial IM PRN PRN Hypoglycemia Protocol Glucose 15 gm 07/31/24 00:46 Glucose Oral Gel 15 Gm Of Glucse In 37.5 Gm Tube PO PRN PRN Hypoglycemia Protocol Hydralazine HCl 10 mg 08/05/24 07:42 08/05/24 09:06 Hydralazine Hcl 20 Mg/Ml Vial IV PUSH 10 mg Q4H PRN Administration Blood Pressure - High Ceftriaxone Sodium 2 gm in 100 mls @ 200 mls/hr 07/31/24 00:00 08/07/24 00:55 Rocephin 2 Gm/Ns 100 Ml IVPB Infused Q24H RAISSA Infusion Dextrose 1,000 mls @ 100 mls/hr 07/31/24 00:46 Dextrose 5% 1,000 Ml IVPB PRN PRN Hypoglycemia Protocol Fentanyl Citrate 2,500 mcg in 250 mls @ 0 mls/hr 07/31/24 01:55 08/04/24 21:57 Fentanyl 2,500 Mcg/Ns 250 Ml IV CONT Not Given .Q0M RAISSA Protocol Propofol 100 mls @ 0 mls/hr 08/01/24 07:55 08/05/24 12:56 Diprivan IV CONT Not Given .Q0M [facility] Protocol Insulin Aspart 3 - 6 units 07/31/24 06:00 08/07/24 06:14 Insulin Aspart (*Bkc) 100 Units/Ml SUB-Q Not Given Q6HR [facility] Protocol Lisinopril 10 mg 08/05/24 12:20 08/07/24 08:39 Lisinopril 10 Mg Tablet PO 10 mg DAILY RAISSA Administration Magnesium Hydroxide 30 ml 07/30/24 20:15 Magnesium Hydroxide Susp 30 Ml Udc FEED TUBE DAILY PRN Constipation Midazolam HCl 2 mg 07/30/24 20:27 07/30/24 21:14 Midazolam Hcl (*Crx) 2 Mg/2 Ml Vial IV PUSH 2 mg ONCE PRN Administration Agitation Multi-Ingred Cream/Lotion/Oil/Oint 1 applic 07/31/24 09:00 08/07/24 08:41 Mineral Oil/White Petrolatum Ointment EACH EYE 1 applic Q12HR RAISSA Administration Multi-Ingred Cream/Lotion/Oil/Oint 1 applic 08/05/24 01:47 08/05/24 06:51 Eucerin Cream 120 Gm Jar TOPICAL 1 applic PRN PRN Administration dry skin Pantoprazole Sodium 40 mg 07/31/24 09:00 08/07/24 08:40 Pantoprazole Sodium Iv 40 Mg Vial IV PUSH 40 mg DAILY RAISSA Administration Polyethylene Glycol 17 gm 08/06/24 09:00 08/07/24 08:40 Polyethylene Glycol 3350 17 Gm Powd.Pack PO 17 gm QAM RAISSA Administration Senna/Docusate Sodium 1 tab 08/02/24 21:00 08/06/24 20:19 Senna/Docusate Sodium Tablet PO 1 tab HS RAISSA Administration Sodium Chloride 10 ml 08/02/24 14:00 08/07/24 06:14 Central Line Flush IV PUSH 10 ml Q8HR RAISAS Administration Sodium Chloride 20 ml 08/02/24 09:06 Central Line Flush IV PUSH PRN PRN after blood draws Radiology Results: ITS Impressions Chest CTA 07/30/24 16:19 IMPRESSION: Right lung atelectasis including particularly upper and lower lobes; which may be due to malignant or radiation stricture of the right bronchial airways. Consider PET/CT correlation No pulmonary embolism Abdomen X-Ray 07/31/24 05:45 IMPRESSION: 1. Nonobstructive bowel gas pattern. Venous Doppler Study 08/04/24 10:39 IMPRESSION: 1. Patent bilateral upper extremity veins. No evidence of venous thrombosis. Chest CT 08/04/24 11:39 IMPRESSION: 1. Mild groundglass opacities in the lower lobes, consistent with pneumonia. 2. 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 Persistent complete collapse of right middle lobe. 3. Tracheobronchomalacia. 4. Small pleural effusions. 5. Mild emphysema. Chest X-Ray 08/05/24 10:09 IMPRESSION: 1. Persistent right parahilar and right upper lobe paramediastinal opacities consistent with radiation fibrosis. 2. Unchanged small right pleural effusion with bibasilar opacities which could represent atelectasis or pneumonia. 2. Cardiomegaly. Abdomen Ultrasound 08/05/24 12:19 IMPRESSION: 1. Cholelithiasis within the otherwise normal-appearing gallbladder. Labs Labs: Laboratory Results - last 24 hr 08/06/24 08/06/24 08/07/24 12:27 17:37 00:09 WBC RBC Hgb Hct MCV MCH MCHC RDW Plt Count MPV Immature Gran % (Auto) Neut % (Auto) Lymph % (Auto) Terry % (Auto) Eos % (Auto) Baso % (Auto) Lymph # (Auto) Terry # (Auto) Eos # (Auto) Baso # (Auto) Abs Immat Gran (auto) Absolute Neuts (auto) Absolute Nucleated RBC Nucleated RBC % Puncture Site Right radial ABG pH 7.444 ABG pCO2 52.5 H ABG pO2 76.0 L ABG PO2/FiO2 Ratio 1.90 ABG HCO3 35.2 H ABG O2 Saturation 95.5 ABG O2 Content 19.1 ABG Base Excess 9.3 A-a Gradient 148.8 Oxyhemoglobin 94.0 Carboxyhemoglobin Methemoglobin Reduced Hemoglobin Total Hemoglobin 14.4 O2 Delivery Device Ventilator O2 Liters/Min Not Reportable Minute Volume Not Reportable Vent Rate Not Reportable Vent Mode Spontaneous FiO2 40 Tidal Volume Not Reportable PEEP 5 Peak Inspir Pressure Not Reportable Pressure Support 10 Sodium Potassium Chloride Carbon Dioxide Anion Gap BUN Creatinine Estim Creat Clear Calc Estimated GFR Glucose POC Capillary Glucose 145 H 119 H Calcium Phosphorus Magnesium Total Bilirubin AST ALT Alkaline Phosphatase Total Protein Albumin 08/07/24 08/07/24 08/07/24 03:33 04:32 11:48 WBC 13.9 H RBC 4.18 L Hgb 13.0 Hct 40.6 MCV 97.1 MCH 31.1 MCHC 32.0 RDW 14.3 Plt Count 155 MPV 10.6 H Immature Gran % (Auto) 5.8 H Neut % (Auto) 75.1 H Lymph % (Auto) 12.2 L Terry % (Auto) 6.0 Eos % (Auto) 0.6 Baso % (Auto) 0.3 Lymph # (Auto) 1.70 Terry # (Auto) 0.8 H Eos # (Auto) 0.1 Baso # (Auto) 0.0 Abs Immat Gran (auto) 0.80 H Absolute Neuts (auto) 10.4 H Absolute Nucleated RBC 0.000 Nucleated RBC % 0.0 Puncture Site Right radial ABG pH 7.463 H ABG pCO2 43.8 ABG pO2 81.4 ABG PO2/FiO2 Ratio 2.04 ABG HCO3 30.7 H ABG O2 Saturation 96.5 ABG O2 Content 18.4 ABG Base Excess 6.1 A-a Gradient 153.4 Oxyhemoglobin 95.2 Carboxyhemoglobin 0.8 Methemoglobin 0.1 Reduced Hemoglobin 3.9 Total Hemoglobin 13.7 O2 Delivery Device Ventilator O2 Liters/Min Not Reportable Minute Volume Not Reportable Vent Rate 16 Vent Mode Cmv FiO2 40 Tidal Volume 480 PEEP 5 Peak Inspir Pressure Not Reportable Pressure Support Not Reportable Sodium 139 Potassium 4.2 Chloride 101 Carbon Dioxide 39 H Anion Gap -1 L BUN 45 H Creatinine 0.60 L Estim Creat Clear Calc 80 Estimated GFR > 60 Glucose 112 H POC Capillary Glucose 163 H Calcium 9.1 Phosphorus 3.5 Magnesium 2.0 Total Bilirubin 0.8 AST 44 H ALT 166 H Alkaline Phosphatase 90 Total Protein 6.0 L Albumin 2.9 L Quality VTE Prophylaxis VTE prophylaxis: pharmacologic ordered
[2024-08-07] MEDS: BUMETANIDE INJ 1 MG/4 ML VIAL IV PUSH (12:57)
[2024-08-07 18:07] LABS: Glucose Point of Care 138 mg/dl (65-105)
[2024-08-07] MEDS: SENNA/DOCUSATE SODIUM TABLET 1 TAB PO (21:17)
[2024-08-07] MEDS: ATORVASTATIN 10 MG TABLET PO (21:17)
[2024-08-07 23:17] LABS: Glucose Point of Care 131 mg/dl (65-105)
[2024-08-08] VITALS (27 sets, daily range): BP systolic 112–156; BP diastolic 55–69; PULSE 79–867; RESP 14–24; TEMP 36.7–36.9; O2SAT 94–100
[2024-08-08] MEDS: cefTRIAXone 2 GM/NS 100 ML 2 GM/100 ML BAG IVPB (00:30)
[2024-08-08] MEDS: IPRATROPIUM 0.5 MG/ALBUTEROL SULFATE 2.5 MG AMPUL.NEB 3 ML INHALATION ×4 (02:19→20:25)
[2024-08-08] MEDS: ACETYLCYSTEINE 20% INHAL SOLN 800 MG/4 ML VIAL 200 MG INHALATION ×4 (02:19→20:26)
[2024-08-08 05:09] LABS: Alveolar/Arterial O2 Gradient 104.8 mmHg; Base Excess ABG 9.5 mEq/l (+/-2.0); Carboxyhemoglobin 1.1 % THb (0-2.0); Fractional Inspired Oxygen 35 %; HCO3 ABG 34.9 mEq/l (22.0-26.0); Methemoglobin ABG 0.1 %THb (0-1.5); Oxygen Content ABG 18.9 %vol (16.0-22.0); Oxygen Saturation ABG 96.9 % (95.0-100.0); Oxyhemoglobin 95.6 % THb (90.0-100.0); PCO2 ABG 49.8 mmHg (35.0-45.0); PO2 ABG 86.9 mmHg (80.0-100.0); PO2 FiO2 Ratio Arterial Blood 2.48 %; Reduced Hemoglobin 3.2 %THb (0-5.0); pH ABG 7.463 (7.350-7.450)
[2024-08-08 05:13] LABS: Arterial Blood Gas PEEP 5 cmH2O; Arterial Blood Gas Tidal Volume 480 ml; Arterial Blood Gas Vent Mode CMV; Arterial Blood Gas Ventilator rate 16 /MIN; Device VENTILATOR; Modified Allen's Test Pass; Site Drawn RIGHT RADIAL
[2024-08-08 05:48] LABS: Basophils Percent Auto 0.3 % (0.2-1.2); Eosinophils Absolute Auto 0.1 K/mm3 (0-0.3); Eosinophils Percent Auto 0.8 % (0-4.4); Hematocrit 41.8 % (37.0-47.0); Hemoglobin 13.1 g/dL (12.0-15.0); Immature Granulocyte Absolute 0.39 K/mm3 (0.00-0.031); Lymphocytes Absolute Auto 1.48 K/mm3 (0.9-3.2); Lymphocytes Percent Auto 11.5 % (18.3-44.2); Mean Corpuscular HGB Conc 31.3 g/dl (32-36); Mean Corpuscular Hemoglobin 30.5 pg (26-34); Mean Corpuscular Volume 97.4 fl (80-100); Mean Platelet Volume 10.9 fl (7.4-10.4); Monocytes Absolute Auto 0.9 K/mm3 (0.1-0.6); Monocytes Percent Auto 6.7 % (2.6-8.5); Neutrophils Percent Auto 77.7 % (45.5-73.1); Platelet Count Result 154 k/mm3 (150-375); Red Blood Count 4.29 M/mm3 (4.2-5.4); White Blood Count 12.9 K/mm3 (4.5-10.0)
[2024-08-08 06:01] LABS: Alanine Aminotransferase 123 U/L (6-35); Albumin Level 2.9 g/dL (3.5-5.1); Alkaline Phosphatase 88 U/L (38-126); Anion Gap 0 mmol/L (4-12); Aspartate Amino Transferase 37 U/L (14-36); Bilirubin,Total 0.9 mg/dL (0.2-1.3); Blood Urea Nitrogen 42 mg/dL (7-17); Calcium 9.1 mg/dL (8.4-10.2); Carbon Dioxide 39 mmol/L (22-30); Chloride 99 mmol/L (98-107); Estimated CRCL calculation 93 ml/min; Estimated Glomerular Filt Rate > 60; Glucose 121 mg/dL (65-110); Phosphorus 3.7 mg/dL (2.5-4.5); Potassium 3.7 mmol/L (3.4-5.0); Sodium 138 mmol/L (137-145)
[2024-08-08] MEDS: CENTRAL LINE FLUSH 10 ML IV PUSH ×3 (07:03→21:04)
[2024-08-08] MEDS: lisinopriL 10 MG TABLET PO (09:18)
[2024-08-08] MEDS: ENOXAPARIN 40 MG/0.4 ML SYRINGE SUB-Q (09:22)
[2024-08-08] MEDS: PANTOPRAZOLE SODIUM IV 40 MG VIAL IV PUSH (09:23)
[2024-08-08] MEDS: MINERAL OIL/WHITE PETROLATUM OINTMENT 1 APPLIC EACH EYE ×2 (09:23→21:03)
[2024-08-08] MEDS: polyethylene glycoL 3350 17 GM POWD.PACK PO (09:25)
--- NOTE | 2024-08-08 09:28 | WPDINTPN ---
Progress Note: A&P Assessment and Plan (1) Acute hypercapnic respiratory failure: Code(s): J96.02 - Acute respiratory failure with hypercapnia Status: Acute Assessment and Plan: 07/30: Patient presented with acute hypoxic and hypercarbic respiratory failure. 07/30: Failed trial of BiPAP in the ER and was intubated -currently on CMV mode of ventilation, peep of 5, 30% FiO2, wean O2 to maintain O2 sats > 90-92%, -no wheezing, continue to wean steroids to off -continue ceftriaxone (07/30), status post 5 days of azithromycin -discontinue vancomycin (08/03) -influenza, RSV, COVID negative -secretions have improved with Mucomyst and Pulmozyme -continue DuoNebs -08/03: Status post bronchoscopy, was also present in the room with Dr. Smith, soil field technician, right middle and lower lobe collapse noted, increased secretions, was able to get a BAL and sent for Gram stain and culture, still pending, preliminary AFB culture is negative -08/04: CT scan of chest as under, currently sedated with fentanyl and propofol infusion, have asked the bedside RN to start decreasing the propofol and fentanyl and place patient on Precedex infusion, will try SBT today 08/05: Patient responded well to diuresis, was placed on SBT, tolerated around 2 hours but had developed respiratory distress, tachycardic, tachypnea and was switched back to CMV mode of ventilation 08/06: Patient again responded well to diuresis and was in negative fluid balance. Was placed on pressure support ventilation 10/5 which was further decreased to 8/5. Tolerated well for around 2 hours and she was in respiratory distress with tachycardia, tachypnea so was placed back on the CMV mode 08/07: Patient sleepy this morning, did not tolerate PSV or ASV mode, will try again later in the more 08/08: Patient more awake this morning, will place patient on pressure support ventilation 10/5 Right middle and lower lobe collapse likely causing issues with liberation from the ventilator, discussed with health information tech at [facility], patient was accepted, Interventional pulmonology will consult, accepting physician, Dr. Malika Glover. Patient will be transferred once bed is available 08/04: CT chest noncontrast IMPRESSION: 1. Mild groundglass opacities in the lower lobes, consistent with pneumonia. 2. 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 Persistent complete collapse of right middle lobe. 3. Tracheobronchomalacia. 4. Small pleural effusions. 5. Mild emphysema. (2) Acute exacerbation of chronic obstructive pulmonary disease: Code(s): J44.1 - Chronic obstructive pulmonary disease with (acute) exacerbation Status: Acute Assessment and Plan: Continue bronchodilators, currently on mechanical ventilation -status post steroids since patient had diffuse wheezing on admission (3) Pneumonia: Code(s): J18.9 - Pneumonia, unspecified organism Status: Acute Assessment and Plan: Continue antibiotics, bronchodilators -07/30: blood cultures are negative x2 -07/30: Urine cultures are negative -08/01: Sputum cultures no growth so far (4) Diabetes: Code(s): E11.9 - Type 2 diabetes mellitus without complications Status: Acute Assessment and Plan: Continue sliding scale insulin and Accu-Cheks -hemoglobin A1c 5.7 this admission (5) Elevated troponin: Code(s): R79.89 - Other specified abnormal findings of blood chemistry Status: Acute Assessment and Plan: Elevated troponin, trending down, likely related to type 2 infarct secondary severe hypoxia as patient was saturating 44% on room air upon arrival of the EMS at her house -there was no complains of chest pain -severely reduced right systolic function: appreciate cardiology evaluation and recommendations, -continue lisinopril -continue diuresis 08/01: Echocardiogram Summary 1. Very technically difficult study with limited views. 2. The left ventricle grossly appears normal size and systolic function in the available and technically difficult views that were obtained in this study. 3. The right ventricle appears dilated with severely reduced systolic function in the available and technically difficult views that were obtained in this study. 4. Dilated inferior vena cava with <50% collapse upon inspiration consistent with significantly elevated right atrial pressure, 15 mmHg. (6) Electrolyte abnormality: Code(s): E87.8 - Other disorders of electrolyte and fluid balance, not elsewhere classified Status: Acute Assessment and Plan: Potassium and magnesium normalized after replacement Plan DVT prophylaxis: Lovenox Stress ulcer prophylaxis: Protonix Nutrition: Tolerating tube feeds, continue Code Status: Full code Critical Care Time Spent: 33 minutes 08/08: Discussed with family, updated with patient's condition and plan of care. They are aware that patient has been accepted to [facility] and will be transferred once they have bed available for the patient for interventional soil field technician to evaluate the patient from a right middle and lower lobe collapse which is hindering in her extubation. 08/06: Discussed with spouse and daughter in rounds and updated them with patient's condition and plan of care. They are aware that patient is failing her her breathing trials,, discussed with them regarding transferring the patient to [place] which she has had her treatment for her lung cancer and radiation, for evaluation by Interventional pulmonology for the collapse of her right middle and lower lobe. The and the daughter are agreeable. I called [facility] and patient has been accepted to the ICU, attending/accepted physician is Dr. Lopez. Due to a high probability of clinically significant, life threatening deterioration, the patient required my highest level of preparedness to intervene emergently and I personally spent this critical care time directly and personally managing the patient. This critical care time included obtaining a history; examining the patient; pulse oximetry; ordering and review of studies; arranging urgent treatment with development of a management plan; evaluation of patient's response to treatment; frequent reassessment; and discussions with other providers. It was exclusive of separately billable procedures and treating other patients and teaching time. Please see Assessment and Plan section and the rest of the note for further information on patient assessment and treatment This dictation may have been done utilizing a voice recognition system. Attempts have been made to correct errors. However, there may be uncorrected grammatical, spelling, and recognitions errors present. Subjective Date/time seen: 08/08/24 09:28 Interval history: Reason for consult: Hypercapnic respiratory failure requiring intubation in the ER after failing BiPAP, COPD exacerbation, pneumonia 07/30: Intubated 08/03: Bronchoscopy 08/08/2024: Patient seen and examined the ICU, remains intubated on CMV mode of ventilation, peep of 5, 35% FiO2. Has been off all sedation for >96 hours. Patient is awake, alert, nods to questions, follows simple commands. Urine output has been adequate in response to diuresis, patient in negative fluid balance in the last 24 hours. Kidney functions remain stable. Patient is afebrile, tolerating tube feeds, hemodynamically stable Review of Systems Review of Systems: ROS unobtainable: Yes unobtainable due to endotracheal tube, unobtainable due to medical condition and unobtainable due to mental status Exam Narrative: General: Intubated, is awake, in no acute distress HEENT:? Pupils equal and reactive, sclerae is care, ETT in place Neck:? Supple Respiratory:? Coarse breath sounds at bases bilaterally, right > left. No wheezing this morning, otherwise adequate air entry Cardiac:? S1-S2 normal, regular rate and rhythm Abdomen:? Soft, nontender, nondistended, obese, normoactive bowel sounds Extremities:? Edema has improved significantly, wrinkling of the skin noted on upper and lower extremities Neuro:? Patient is intubated, off sedation, follows simple commands in all extremities and nods to questions Skin:? No skin lesions noted Psych:? Unable to assess at this time Objective Data Vital Signs Vital Signs: Vital Signs - 24 hr 08/07/24 10:00 08/07/24 10:00 08/07/24 10:57 Temperature Pulse Rate 92 92 93 Respiratory Rate 17 Blood Pressure 148/70 H Pulse Oximetry 94 93 Oxygen Delivery Mechanical Ventilation Fraction of Inspired Oxygen 35 08/07/24 11:17 08/07/24 12:00 08/07/24 12:00 Temperature 98.7 F Pulse Rate 90 86 Respiratory Rate 20 Blood Pressure 149/79 H Pulse Oximetry 93 93 Oxygen Delivery Mechanical Ventilation Mechanical Ventilation Fraction of Inspired Oxygen 35 35 08/07/24 12:00 08/07/24 12:00 08/07/24 13:29 Temperature Pulse Rate 88 91 Respiratory Rate Blood Pressure Pulse Oximetry 93 Oxygen Delivery Mechanical Ventilation Fraction of Inspired Oxygen 35 35 08/07/24 13:29 08/07/24 13:43 08/07/24 14:00 Temperature Pulse Rate 91 95 100 Respiratory Rate 23 H 24 H 27 H Blood Pressure 156/72 H Pulse Oximetry 91 Oxygen Delivery Fraction of Inspired Oxygen 08/07/24 14:00 08/07/24 14:06 08/07/24 16:00 Temperature Pulse Rate 100 105 H Respiratory Rate Blood Pressure Pulse Oximetry 93 Oxygen Delivery Mechanical Ventilation Mechanical Ventilation Fraction of Inspired Oxygen 35 35 08/07/24 16:00 08/07/24 16:00 08/07/24 16:00 Temperature 99.4 F Pulse Rate 100 99 Respiratory Rate 18 Blood Pressure 116/52 L Pulse Oximetry 94 Oxygen Delivery Fraction of Inspired Oxygen 35 08/07/24 16:43 08/07/24 18:00 08/07/24 18:00 Temperature Pulse Rate 93 80 80 Respiratory Rate 16 Blood Pressure 99/52 L Pulse Oximetry 96 95 Oxygen Delivery Mechanical Ventilation Fraction of Inspired Oxygen 35 08/07/24 20:00 08/07/24 20:00 08/07/24 20:00 Temperature Pulse Rate 80 80 Respiratory Rate 16 Blood Pressure Pulse Oximetry 100 Oxygen Delivery Mechanical Ventilation Fraction of Inspired Oxygen 40 35 08/07/24 20:00 08/07/24 20:14 08/07/24 20:14 Temperature Pulse Rate 80 82 82 Respiratory Rate 16 16 Blood Pressure 121/54 L Pulse Oximetry 100 99 Oxygen Delivery Mechanical Ventilation Fraction of Inspired Oxygen 35 08/07/24 20:20 08/07/24 22:00 08/07/24 22:00 Temperature Pulse Rate 83 89 87 Respiratory Rate 16 17 Blood Pressure 127/64 Pulse Oximetry 96 Oxygen Delivery Fraction of Inspired Oxygen 08/07/24 23:16 08/07/24 23:17 08/07/24 23:22 Temperature Pulse Rate 87 86 Respiratory Rate 17 Blood Pressure Pulse Oximetry 96 95 Oxygen Delivery Mechanical Ventilation Mechanical Ventilation Fraction of Inspired Oxygen 35 35 35 08/08/24 00:00 08/08/24 00:00 08/08/24 02:00 Temperature 98.4 F Pulse Rate 89 89 86 Respiratory Rate 18 Blood Pressure 128/66 Pulse Oximetry 95 Oxygen Delivery Fraction of Inspired Oxygen 08/08/24 02:00 08/08/24 02:20 08/08/24 02:20 Temperature Pulse Rate 81 82 82 Respiratory Rate 18 17 Blood Pressure 120/59 L Pulse Oximetry 96 98 Oxygen Delivery Mechanical Ventilation Fraction of Inspired Oxygen 35 08/08/24 02:27 08/08/24 04:00 08/08/24 04:00 Temperature Pulse Rate 86 86 Respiratory Rate 17 17 Blood Pressure Pulse Oximetry 98 Oxygen Delivery Mechanical Ventilation Fraction of Inspired Oxygen 35 35 08/08/24 04:00 08/08/24 04:00 08/08/24 05:00 Temperature 98.5 F Pulse Rate 867 H 79 94 Respiratory Rate 16 Blood Pressure 123/59 L Pulse Oximetry 95 96 Oxygen Delivery Mechanical Ventilation Fraction of Inspired Oxygen 35 08/08/24 06:00 08/08/24 06:00 08/08/24 07:46 Temperature Pulse Rate 89 92 87 Respiratory Rate 18 18 Blood Pressure 156/63 H Pulse Oximetry 100 Oxygen Delivery Fraction of Inspired Oxygen 08/08/24 07:49 08/08/24 07:54 08/08/24 08:18 Temperature Pulse Rate 86 89 88 Respiratory Rate 16 Blood Pressure Pulse Oximetry 95 94 Oxygen Delivery Mechanical Ventilation Mechanical Ventilation Fraction of Inspired Oxygen 35 35 Intake/Output Intake/Output: Intake & Output 08/05/24 08/06/24 08/07/24 08/08/24 23:59 23:59 23:59 23:59 Intake Total 1429.4 1330 1581 576 Output Total 3750 1975 2800 650 [facility] -2320.6 -645 -1219 -74 Meds/Results Medications: Active Medications Generic Name Dose Route Start Last Admin Trade Name Freq PRN Reason Stop Dose Admin Acetaminophen 650 mg 08/05/24 23:28 08/06/24 08:47 Acetaminophen Elixir 325 Mg/10.15 Ml Udc PO 650 mg Q6H PRN Administration Mild Pain (1-3) or Fever Acetylcysteine 200 mg 08/01/24 08:00 08/08/24 07:46 Acetylcysteine 20% Inhal Soln 800 Mg/4 Ml Vial INHALATION 200 mg Q6HRT RAISSA Administration Albuterol/Ipratropium 3 ml 08/01/24 14:00 08/08/24 07:46 Ipratropium 0.5 Mg/Albuterol Sulfate 2.5 Mg Ampul.Neb 3 Ml INHALATION 3 ml Q6HRT RAISSA Administration Atorvastatin Calcium 10 mg 07/31/24 21:00 08/07/24 21:17 Atorvastatin 10 Mg Tablet PO 10 mg QHS RAISSA Administration Bisacodyl 10 mg 07/30/24 20:15 Bisacodyl 10 Mg Suppository RECTAL ONCE PRN Constipation Dextrose 12.5 gm 07/31/24 00:46 Dextrose 50% 25 Gm/50 Ml Syringe IV PUSH PRN PRN Hypoglycemia Protocol Enoxaparin Sodium 40 mg 07/31/24 09:00 08/08/24 09:22 Enoxaparin 40 Mg/0.4 Ml Syringe SUB-Q 40 mg DAILY RAISSA Administration Fluticasone/Umeclidinium/Vilanterol 1 puff 07/31/24 09:45 08/07/24 08:37 Fluticasone/Umeclidin/Vilanter 100-62.5-25 Mcg Ellipta INHALATION Not Given DAILYRT RAISSA Glucagon 1 mg 07/31/24 00:46 Glucagon For Inj 1 Mg Vial IM PRN PRN Hypoglycemia Protocol Glucose 15 gm 07/31/24 00:46 Glucose Oral Gel 15 Gm Of Glucse In 37.5 Gm Tube PO PRN PRN Hypoglycemia Protocol Hydralazine HCl 10 mg 08/05/24 07:42 08/05/24 09:06 Hydralazine Hcl 20 Mg/Ml Vial IV PUSH 10 mg Q4H PRN Administration Blood Pressure - High Ceftriaxone Sodium 2 gm in 100 mls @ 200 mls/hr 07/31/24 00:00 08/08/24 00:30 Rocephin 2 Gm/Ns 100 Ml IVPB 200 mls/hr Q24H RAISSA Administration Dextrose 1,000 mls @ 100 mls/hr 07/31/24 00:46 Dextrose 5% 1,000 Ml IVPB PRN PRN Hypoglycemia Protocol Fentanyl Citrate 2,500 mcg in 250 mls @ 0 mls/hr 07/31/24 01:55 08/04/24 21:57 Fentanyl 2,500 Mcg/Ns 250 Ml IV CONT Not Given .Q0M [facility] Protocol Propofol 100 mls @ 0 mls/hr 08/01/24 07:55 08/05/24 12:56 Diprivan IV CONT Not Given .Q0M [facility] Protocol Insulin Aspart 3 - 6 units 07/31/24 06:00 08/08/24 07:03 Insulin Aspart (*Bkc) 100 Units/Ml SUB-Q Not Given Q6HR [facility] Protocol Lisinopril 10 mg 08/05/24 12:20 08/08/24 09:18 Lisinopril 10 Mg Tablet PO 10 mg DAILY RAISSA Administration Magnesium Hydroxide 30 ml 07/30/24 20:15 Magnesium Hydroxide Susp 30 Ml Udc FEED TUBE DAILY PRN Constipation Midazolam HCl 2 mg 07/30/24 20:27 07/30/24 21:14 Midazolam Hcl (*Crx) 2 Mg/2 Ml Vial IV PUSH 2 mg ONCE PRN Administration Agitation Multi-Ingred Cream/Lotion/Oil/Oint 1 applic 07/31/24 09:00 08/08/24 09:23 Mineral Oil/White Petrolatum Ointment EACH EYE 1 applic Q12HR RAISSA Administration Multi-Ingred Cream/Lotion/Oil/Oint 1 applic 08/05/24 01:47 08/05/24 06:51 Eucerin Cream 120 Gm Jar TOPICAL 1 applic PRN PRN Administration dry skin Pantoprazole Sodium 40 mg 07/31/24 09:00 08/08/24 09:23 Pantoprazole Sodium Iv 40 Mg Vial IV PUSH 40 mg DAILY RAISSA Administration Polyethylene Glycol 17 gm 08/06/24 09:00 08/08/24 09:25 Polyethylene Glycol 3350 17 Gm Powd.Pack PO 17 gm QAM RAISSA Administration Senna/Docusate Sodium 1 tab 08/02/24 21:00 08/07/24 21:17 Senna/Docusate Sodium Tablet PO 1 tab HS RAISSA Administration Sodium Chloride 10 ml 08/02/24 14:00 08/08/24 07:03 Central Line Flush IV PUSH 10 ml Q8HR RAISSA Administration Sodium Chloride 20 ml 08/02/24 09:06 Central Line Flush IV PUSH PRN PRN after blood draws Radiology Results: ITS Impressions Chest CTA 07/30/24 16:19 IMPRESSION: Right lung atelectasis including particularly upper and lower lobes; which may be due to malignant or radiation stricture of the right bronchial airways. Consider PET/CT correlation No pulmonary embolism Abdomen X-Ray 07/31/24 05:45 IMPRESSION: 1. Nonobstructive bowel gas pattern. Chest CT 08/04/24 11:39 IMPRESSION: 1. Mild groundglass opacities in the lower lobes, consistent with pneumonia. 2. 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 Persistent complete collapse of right middle lobe. 3. Tracheobronchomalacia. 4. Small pleural effusions. 5. Mild emphysema. Abdomen Ultrasound 08/05/24 12:19 IMPRESSION: 1. Cholelithiasis within the otherwise normal-appearing gallbladder. Venous Doppler Study 08/07/24 14:35 IMPRESSION: 1. No deep venous thrombosis. Chest X-Ray 08/08/24 06:29 Impression: Left basilar atelectasis versus pneumonia. Stable prominent hilar structures. Stable support tubes. Labs Labs: Laboratory Results - last 24 hr 08/07/24 08/07/24 08/07/24 11:48 18:04 23:14 WBC RBC Hgb Hct MCV MCH MCHC RDW Plt Count MPV Immature Gran % (Auto) Neut % (Auto) Lymph % (Auto) Burt % (Auto) Eos % (Auto) Baso % (Auto) Lymph # (Auto) Burt # (Auto) Eos # (Auto) Baso # (Auto) Abs Immat Gran (auto) Absolute Neuts (auto) Absolute Nucleated RBC Nucleated RBC % Puncture Site ABG pH ABG pCO2 ABG pO2 ABG PO2/FiO2 Ratio ABG HCO3 ABG O2 Saturation ABG O2 Content ABG Base Excess A-a Gradient Oxyhemoglobin Carboxyhemoglobin Methemoglobin Reduced Hemoglobin Total Hemoglobin O2 Delivery Device O2 Liters/Min Minute Volume Vent Rate Vent Mode FiO2 Tidal Volume PEEP Peak Inspir Pressure Pressure Support Sodium Potassium Chloride Carbon Dioxide Anion Gap BUN Creatinine Estim Creat Clear Calc Estimated GFR Glucose POC Capillary Glucose 163 H 138 H 131 H Calcium Phosphorus Magnesium Total Bilirubin AST ALT Alkaline Phosphatase Total Protein Albumin 08/08/24 08/08/24 05:03 05:40 WBC 12.9 H RBC 4.29 Hgb 13.1 Hct 41.8 MCV 97.4 MCH 30.5 MCHC 31.3 L RDW 14.0 Plt Count 154 MPV 10.9 H Immature Gran % (Auto) 3.0 H Neut % (Auto) 77.7 H Lymph % (Auto) 11.5 L Burt % (Auto) 6.7 Eos % (Auto) 0.8 Baso % (Auto) 0.3 Lymph # (Auto) 1.48 Burt # (Auto) 0.9 H Eos # (Auto) 0.1 Baso # (Auto) 0.0 Abs Immat Gran (auto) 0.39 H Absolute Neuts (auto) 10.0 H Absolute Nucleated RBC 0.000 Nucleated RBC % 0.0 Puncture Site Right radial ABG pH 7.463 H ABG pCO2 49.8 H ABG pO2 86.9 ABG PO2/FiO2 Ratio 2.48 ABG HCO3 34.9 H ABG O2 Saturation 96.9 ABG O2 Content 18.9 ABG Base Excess 9.5 A-a Gradient 104.8 Oxyhemoglobin 95.6 Carboxyhemoglobin 1.1 Methemoglobin 0.1 Reduced Hemoglobin 3.2 Total Hemoglobin 14.0 O2 Delivery Device Ventilator O2 Liters/Min Not Reportable Minute Volume Not Reportable Vent Rate 16 Vent Mode Cmv FiO2 35 Tidal Volume 480 PEEP 5 Peak Inspir Pressure Not Reportable Pressure Support Not Reportable Sodium 138 Potassium 3.7 Chloride 99 Carbon Dioxide 39 H Anion Gap 0 L BUN 42 H Creatinine 0.50 L Estim Creat Clear Calc 93 Estimated GFR > 60 Glucose 121 H POC Capillary Glucose Calcium 9.1 Phosphorus 3.7 Magnesium 2.0 Total Bilirubin 0.9 AST 37 H ALT 123 H Alkaline Phosphatase 88 Total Protein 6.0 L Albumin 2.9 L Quality VTE Prophylaxis VTE prophylaxis: pharmacologic ordered
--- NOTE | 2024-08-08 10:59 | PCNFU ---
Nutrition Follow-Up Complete: Suboptimal Energy Intake as related to mechanical ventilation as evidenced by NPO. Meet estimated nutritional needs. _ Meeting about 86% EER and ~73% estimated protein needs with tube feeding. Continue with same goal Goal: Pt current nutrition is Vital 1.2 @ 45 ml/h with 30 ml flushes q 4 hours. Giancarlo BID for additional 90 kcal and 2.5 g protein each. Prosource once per day for additional 80 kcal and 20 g protein each Nutrition recommendation: No new nutrition recommendations. Continue with current nutrition care plan and orders. Agree with orders Last recorded weight is 110.6 kg. Bowel Motility: Last BM +1 08/07/24 Labs Reviewed: Alb 2.9, BUN 42, Cre 0.5, Glu 121 Meds Noted: Versed, senna, miralax, protonix, lovenox Skin: Deep tissue pressure injury to coccyx Additional Notes: Transfer to [place] as soon as bed is available. Tube feeding Vital 1.2 @ 45 with Prosource 1x per day provides 1376 kcal, 94 g protein, 803 ml free water. Giancarlo for wounds. Agree with current nutrition orders. Will monitor weight, labs, skin, diet orders, meds every Wednesday and Wednesday.
[2024-08-08] MEDS: acetaZOLAMIDE SODIUM FOR INJ 500 MG VIAL IV PUSH (11:02)
[2024-08-08 11:58] LABS: Glucose Point of Care 136 mg/dl (65-105)
[2024-08-08] MEDS: WATER, STERILE FOR INJECTION 10 ML VIAL XX (11:58)
[2024-08-08 18:02] LABS: Glucose Point of Care 130 mg/dl (65-105)
[2024-08-08] MEDS: ATORVASTATIN 10 MG TABLET PO (21:03)
[2024-08-08] MEDS: SENNA/DOCUSATE SODIUM TABLET 1 TAB PO (21:03)
[2024-08-09] VITALS (24 sets, daily range): BP systolic 109–149; BP diastolic 58–70; PULSE 84–104; RESP 16–28; TEMP 36.9–37.8; O2SAT 93–97
[2024-08-09] MEDS: IPRATROPIUM 0.5 MG/ALBUTEROL SULFATE 2.5 MG AMPUL.NEB 3 ML INHALATION ×4 (02:46→20:53)
[2024-08-09] MEDS: ACETYLCYSTEINE 20% INHAL SOLN 800 MG/4 ML VIAL 200 MG INHALATION ×4 (02:46→20:52)
[2024-08-09 05:58] LABS: Alveolar/Arterial O2 Gradient 118.1 mmHg; Base Excess ABG 3.7 mEq/l (+/-2.0); Carboxyhemoglobin 1.1 % THb (0-2.0); Fractional Inspired Oxygen 35 %; HCO3 ABG 28.7 mEq/l (22.0-26.0); Methemoglobin ABG 0.1 %THb (0-1.5); Oxygen Content ABG 18.1 %vol (16.0-22.0); Oxygen Saturation ABG 95.9 % (95.0-100.0); PCO2 ABG 44.8 mmHg (35.0-45.0); PO2 ABG 79.4 mmHg (80.0-100.0); PO2 FiO2 Ratio Arterial Blood 2.27 %; Reduced Hemoglobin 3.8 %THb (0-5.0); Total Hemoglobin 13.5 g/dL (12.0-18.0); pH ABG 7.424 (7.350-7.450)
[2024-08-09 05:59] LABS: Device VENTILATOR; Modified Allen's Test Pass; Site Drawn LEFT RADIAL
[2024-08-09 06:00] LABS: Arterial Blood Gas PEEP 5 cmH2O; Arterial Blood Gas Tidal Volume 480 ml; Arterial Blood Gas Vent Mode CMV; Arterial Blood Gas Ventilator rate 16 /MIN
[2024-08-09 06:06] LABS: Basophils Percent Auto 0.2 % (0.2-1.2); Eosinophils Absolute Auto 0.1 K/mm3 (0-0.3); Eosinophils Percent Auto 1.2 % (0-4.4); Hematocrit 40.2 % (37.0-47.0); Hemoglobin 12.7 g/dL (12.0-15.0); Immature Granulocyte Absolute 0.24 K/mm3 (0.00-0.031); Lymphocytes Absolute Auto 1.17 K/mm3 (0.9-3.2); Lymphocytes Percent Auto 9.6 % (18.3-44.2); Mean Corpuscular HGB Conc 31.6 g/dl (32-36); Mean Platelet Volume 10.9 fl (7.4-10.4); Monocytes Absolute Auto 0.7 K/mm3 (0.1-0.6); Monocytes Percent Auto 5.9 % (2.6-8.5); Neutrophils Absolute Auto 9.9 K/mm3 (1.3-6.7); Neutrophils Percent Auto 81.1 % (45.5-73.1); Platelet Count Result 170 k/mm3 (150-375); Red Cell Distribution Width 14.3 % (11.5-14.5); White Blood Count 12.1 K/mm3 (4.5-10.0)
[2024-08-09 06:17] LABS: Alanine Aminotransferase 93 U/L (6-35); Alkaline Phosphatase 78 U/L (38-126); Anion Gap 0 mmol/L (4-12); Aspartate Amino Transferase 33 U/L (14-36); Blood Urea Nitrogen 40 mg/dL (7-17); Calcium 9.2 mg/dL (8.4-10.2); Carbon Dioxide 34 mmol/L (22-30); Chloride 103 mmol/L (98-107); Estimated CRCL calculation 69 ml/min; Estimated Glomerular Filt Rate > 60; Glucose 120 mg/dL (65-110); Magnesium 2.1 mg/dL (1.6-2.3); Phosphorus 3.7 mg/dL (2.5-4.5); Potassium 3.5 mmol/L (3.4-5.0); Sodium 137 mmol/L (137-145)
[2024-08-09 07:43] LABS: Glucose Point of Care 121 mg/dl (65-105)
[2024-08-09] MEDS: CENTRAL LINE FLUSH 10 ML IV PUSH ×3 (10:47→21:32)
[2024-08-09] MEDS: ENOXAPARIN 40 MG/0.4 ML SYRINGE SUB-Q (10:47)
[2024-08-09] MEDS: lisinopriL 10 MG TABLET PO (10:48)
[2024-08-09] MEDS: PANTOPRAZOLE SODIUM IV 40 MG VIAL IV PUSH (10:48)
[2024-08-09] MEDS: MINERAL OIL/WHITE PETROLATUM OINTMENT 1 APPLIC EACH EYE ×2 (10:48→21:41)
[2024-08-09] MEDS: KCL 40 MEQ/WATER 100 ML 100 ML 25 ML IVPB (10:55)
[2024-08-09] MEDS: FUROSEMIDE INJ 40 MG/4 ML VIAL IV PUSH (10:55)
[2024-08-09] MEDS: polyethylene glycoL 3350 17 GM POWD.PACK PO (11:20)
[2024-08-09 14:18] LABS: Glucose Point of Care 135 mg/dl (65-105)
--- NOTE | 2024-08-09 14:31 | WPDINTPN ---
Progress Note: A&P Assessment and Plan (1) Acute hypercapnic respiratory failure: Code(s): J96.02 - Acute respiratory failure with hypercapnia Status: Acute Assessment and Plan: 07/30: Patient presented with acute hypoxic and hypercarbic respiratory failure. 07/30: Failed trial of BiPAP in the ER and was intubated -currently on CMV mode of ventilation, peep of 5, 30% FiO2, wean O2 to maintain O2 sats > 90-92%, -no wheezing, continue to wean steroids to off -continue ceftriaxone (07/30), status post 5 days of azithromycin -discontinue vancomycin (08/03) -influenza, RSV, COVID negative -secretions have improved with Mucomyst and Pulmozyme -continue DuoNebs -08/03: Status post bronchoscopy, was also present in the room with Dr. Smith, optical brightener maker helper, right middle and lower lobe collapse noted, increased secretions, was able to get a BAL and sent for Gram stain and culture, still pending, preliminary AFB culture is negative -08/04: CT scan of chest as under, currently sedated with fentanyl and propofol infusion, have asked the bedside RN to start decreasing the propofol and fentanyl and place patient on Precedex infusion, will try SBT today 08/05: Patient responded well to diuresis, was placed on SBT, tolerated around 2 hours but had developed respiratory distress, tachycardic, tachypnea and was switched back to CMV mode of ventilation 08/06: Patient again responded well to diuresis and was in negative fluid balance. Was placed on pressure support ventilation 10/5 which was further decreased to 8/5. Tolerated well for around 2 hours and she was in respiratory distress with tachycardia, tachypnea so was placed back on the CMV mode 08/07: Patient sleepy this morning, did not tolerate PSV or ASV mode, will try again later in the more 08/08: Tolerated pressure support ventilation 10/5 for almost 6 hours, patient did got tight was placed back on CMV mode of ventilator 08/09/24: Patient was again placed on pressure support ventilation on 10/5. Patient diuresing well on her own, will hold diuretics today Right middle and lower lobe collapse likely causing issues with liberation from the ventilator, discussed with database technician at [facility], patient was accepted, Interventional pulmonology will consult, accepting physician, Dr. Malika Glover. Patient will be transferred once bed is available 08/04: CT chest noncontrast IMPRESSION: 1. Mild groundglass opacities in the lower lobes, consistent with pneumonia. 2. 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 Persistent complete collapse of right middle lobe. 3. Tracheobronchomalacia. 4. Small pleural effusions. 5. Mild emphysema. (2) Acute exacerbation of chronic obstructive pulmonary disease: Code(s): J44.1 - Chronic obstructive pulmonary disease with (acute) exacerbation Status: Acute Assessment and Plan: Continue bronchodilators, currently on mechanical ventilation -status post steroids since patient had diffuse wheezing on admission (3) Pneumonia: Code(s): J18.9 - Pneumonia, unspecified organism Status: Acute Assessment and Plan: Continue antibiotics, bronchodilators -07/30: blood cultures are negative x2 -07/30: Urine cultures are negative -08/01: Sputum cultures no growth so far (4) Diabetes: Code(s): E11.9 - Type 2 diabetes mellitus without complications Status: Acute Assessment and Plan: Continue sliding scale insulin and Accu-Cheks -hemoglobin A1c 5.7 this admission (5) Elevated troponin: Code(s): R79.89 - Other specified abnormal findings of blood chemistry Status: Acute Assessment and Plan: Elevated troponin, trending down, likely related to type 2 infarct secondary severe hypoxia as patient was saturating 44% on room air upon arrival of the EMS at her house -there was no complains of chest pain -severely reduced right systolic function: appreciate cardiology evaluation and recommendations, -continue lisinopril -patient is diuresed well over the last several days, and continues to diurese on her own. Will could hold diuretic today and evaluate 08/01: Echocardiogram Summary 1. Very technically difficult study with limited views. 2. The left ventricle grossly appears normal size and systolic function in the available and technically difficult views that were obtained in this study. 3. The right ventricle appears dilated with severely reduced systolic function in the available and technically difficult views that were obtained in this study. 4. Dilated inferior vena cava with <50% collapse upon inspiration consistent with significantly elevated right atrial pressure, 15 mmHg. (6) Electrolyte abnormality: Code(s): E87.8 - Other disorders of electrolyte and fluid balance, not elsewhere classified Status: Acute Assessment and Plan: Replace potassium Plan DVT prophylaxis: Lovenox Stress ulcer prophylaxis: Protonix Nutrition: Tolerating tube feeds, continue Code Status: Full code Critical Care Time Spent: 32 minutes 08/09/24: Discussed with family, updated with patient's condition and plan of care. They are aware that patient has been accepted to [facility] and will be transferred once they have bed available for the patient for interventional optical brightener maker helper to evaluate the patient from a right middle and lower lobe collapse which is hindering in her extubation. 08/06: Discussed with spouse and daughter in rounds and updated them with patient's condition and plan of care. They are aware that patient is failing her her breathing trials,, discussed with them regarding transferring the patient to [place] which she has had her treatment for her lung cancer and radiation, for evaluation by Interventional pulmonology for the collapse of her right middle and lower lobe. The and the daughter are agreeable. I called [facility] and patient has been accepted to the ICU, attending/accepted physician is Dr. Lopez. Due to a high probability of clinically significant, life threatening deterioration, the patient required my highest level of preparedness to intervene emergently and I personally spent this critical care time directly and personally managing the patient. This critical care time included obtaining a history; examining the patient; pulse oximetry; ordering and review of studies; arranging urgent treatment with development of a management plan; evaluation of patient's response to treatment; frequent reassessment; and discussions with other providers. It was exclusive of separately billable procedures and treating other patients and teaching time. Please see Assessment and Plan section and the rest of the note for further information on patient assessment and treatment This dictation may have been done utilizing a voice recognition system. Attempts have been made to correct errors. However, there may be uncorrected grammatical, spelling, and recognitions errors present. Subjective Date/time seen: 08/09/24 14:31 Interval history: Reason for consult: Hypercapnic respiratory failure requiring intubation in the ER after failing BiPAP, COPD exacerbation, pneumonia 07/30: Intubated 08/03: Bronchoscopy 08/09/2024: Patient seen examined the ICU this morning, remains intubated on CMV mode of ventilation, peep of 5, 35% FiO2. She has been off all sedation for many days. Is awake, alert, nods to questions and follows simple commands in all extremities. Urine output has been adequate in response to diuresis. Negative fluid balance in the last 24 hours. Renal function is stable. Tolerating tube feeds. Hemodynamically stable and afebril Review of Systems Review of Systems: ROS unobtainable: Yes unobtainable due to endotracheal tube, unobtainable due to medical condition and unobtainable due to mental status Exam Narrative: General: Intubated, is awake, in no acute distress HEENT:? Pupils equal and reactive, sclerae is care, ETT in place Neck:? Supple Respiratory:? Coarse breath sounds at bases bilaterally, right > left. No wheezing this morning, otherwise adequate air entry Cardiac:? S1-S2 normal, regular rate and rhythm Abdomen:? Soft, nontender, nondistended, obese, normoactive bowel sounds Extremities:? Edema has improved significantly, wrinkling of the skin noted on upper and lower extremities Neuro:? Patient is intubated, off sedation, follows simple commands in all extremities and nods to questions Skin:? No skin lesions noted Psych:? Unable to assess at this time Objective Data Vital Signs Vital Signs: Vital Signs - 24 hr 08/08/24 14:34 08/08/24 16:00 08/08/24 16:00 Temperature Pulse Rate 88 Respiratory Rate 23 H Blood Pressure Pulse Oximetry 95 Oxygen Delivery Mechanical Ventilation Fraction of Inspired Oxygen 35 35 08/08/24 16:00 08/08/24 16:00 08/08/24 16:56 Temperature 98.1 F Pulse Rate 102 H 100 102 H Respiratory Rate 23 H Blood Pressure 121/68 Pulse Oximetry 95 94 Oxygen Delivery Mechanical Ventilation Fraction of Inspired Oxygen 35 08/08/24 18:00 08/08/24 18:00 08/08/24 20:00 Temperature Pulse Rate 93 93 Respiratory Rate 17 Blood Pressure 121/63 Pulse Oximetry 95 Oxygen Delivery Fraction of Inspired Oxygen 35 08/08/24 20:00 08/08/24 20:00 08/08/24 20:00 Temperature 98.1 F Pulse Rate 88 88 88 Respiratory Rate 16 17 Blood Pressure 112/60 Pulse Oximetry 96 95 Oxygen Delivery Mechanical Ventilation Fraction of Inspired Oxygen 35 08/08/24 20:26 08/08/24 20:32 08/08/24 22:00 Temperature Pulse Rate 88 88 88 Respiratory Rate 16 18 Blood Pressure 114/56 L Pulse Oximetry 96 96 Oxygen Delivery Mechanical Ventilation Fraction of Inspired Oxygen 35 08/08/24 22:00 08/08/24 23:37 08/09/24 00:00 Temperature Pulse Rate 88 100 Respiratory Rate Blood Pressure Pulse Oximetry 97 Oxygen Delivery Mechanical Ventilation Fraction of Inspired Oxygen 35 35 08/09/24 00:00 08/09/24 00:00 08/09/24 00:00 Temperature 98.5 F Pulse Rate 100 90 90 Respiratory Rate 16 19 Blood Pressure 140/63 Pulse Oximetry 97 96 Oxygen Delivery Mechanical Ventilation Fraction of Inspired Oxygen 35 08/09/24 02:00 08/09/24 02:00 08/09/24 02:47 Temperature Pulse Rate 95 95 85 Respiratory Rate 21 H 18 Blood Pressure 120/59 L Pulse Oximetry 95 Oxygen Delivery Fraction of Inspired Oxygen 08/09/24 02:48 08/09/24 04:00 08/09/24 04:00 Temperature Pulse Rate 85 85 Respiratory Rate 18 Blood Pressure Pulse Oximetry 96 96 Oxygen Delivery Mechanical Ventilation Mechanical Ventilation Fraction of Inspired Oxygen 35 35 35 08/09/24 04:00 08/09/24 04:00 08/09/24 05:36 Temperature 98.6 F Pulse Rate 96 96 84 Respiratory Rate 16 Blood Pressure 121/65 Pulse Oximetry 93 93 Oxygen Delivery Mechanical Ventilation Fraction of Inspired Oxygen 35 08/09/24 06:00 08/09/24 06:00 08/09/24 07:40 Temperature Pulse Rate 94 94 88 Respiratory Rate 20 Blood Pressure 130/69 Pulse Oximetry 97 96 Oxygen Delivery Mechanical Ventilation Fraction of Inspired Oxygen 35 08/09/24 07:40 08/09/24 08:00 08/09/24 08:13 Temperature 98.5 F Pulse Rate 88 89 90 Respiratory Rate 16 16 16 Blood Pressure 138/70 Pulse Oximetry 96 Oxygen Delivery Fraction of Inspired Oxygen 08/09/24 09:40 08/09/24 10:00 08/09/24 10:34 Temperature Pulse Rate 97 97 Respiratory Rate 26 H Blood Pressure 149/70 H Pulse Oximetry 95 96 Oxygen Delivery Mechanical Ventilation Mechanical Ventilation Fraction of Inspired Oxygen 35 35 08/09/24 12:00 Temperature 98.5 F Pulse Rate 97 Respiratory Rate 25 H Blood Pressure 147/65 H Pulse Oximetry 96 Oxygen Delivery Fraction of Inspired Oxygen Intake/Output Intake/Output: Intake & Output 08/06/24 08/07/24 08/08/2408/09/25 23:59 23:59 23:59 23:59 Intake Total 1330 1581 1444 652 Output Total 2388 7067 1261 481 [facility] -[phone] Meds/Results Medications: Active Medications Generic Name Dose Route Start Last Admin Trade Name Freq PRN Reason Stop Dose Admin Acetaminophen 650 mg 08/05/24 23:28 08/06/24 08:47 Acetaminophen Elixir 325 Mg/10.15 Ml Udc PO 650 mg Q6H PRN Administration Mild Pain (1-3) or Fever Acetylcysteine 200 mg 08/01/24 08:00 08/09/24 14:02 Acetylcysteine 20% Inhal Soln 800 Mg/4 Ml Vial INHALATION 200 mg Q6HRT RAISSA Administration Albuterol/Ipratropium 3 ml 08/01/24 14:00 08/09/24 14:02 Ipratropium 0.5 Mg/Albuterol Sulfate 2.5 Mg Ampul.Neb 3 Ml INHALATION 3 ml Q6HRT RAISSA Administration Atorvastatin Calcium 10 mg 07/31/24 21:00 08/08/24 21:03 Atorvastatin 10 Mg Tablet PO 10 mg QHS RAISSA Administration Bisacodyl 10 mg 07/30/24 20:15 Bisacodyl 10 Mg Suppository RECTAL ONCE PRN Constipation Dextrose 12.5 gm 07/31/24 00:46 Dextrose 50% 25 Gm/50 Ml Syringe IV PUSH PRN PRN Hypoglycemia Protocol Enoxaparin Sodium 40 mg 07/31/24 09:00 08/09/24 10:47 Enoxaparin 40 Mg/0.4 Ml Syringe SUB-Q 40 mg DAILY RAISSA Administration Fluticasone/Umeclidinium/Vilanterol 1 puff 07/31/24 09:45 08/08/24 14:26 Fluticasone/Umeclidin/Vilanter 100-62.5-25 Mcg Ellipta INHALATION Not Given DAILYRT RAISSA Glucagon 1 mg 07/31/24 00:46 Glucagon For Inj 1 Mg Vial IM PRN PRN Hypoglycemia Protocol Glucose 15 gm 07/31/24 00:46 Glucose Oral Gel 15 Gm Of Glucse In 37.5 Gm Tube PO PRN PRN Hypoglycemia Protocol Hydralazine HCl 10 mg 08/05/24 07:42 08/05/24 09:06 Hydralazine Hcl 20 Mg/Ml Vial IV PUSH 10 mg Q4H PRN Administration Blood Pressure - High Dextrose 1,000 mls @ 100 mls/hr 07/31/24 00:46 Dextrose 5% 1,000 Ml IVPB PRN PRN Hypoglycemia Protocol Fentanyl Citrate 2,500 mcg in 250 mls @ 0 mls/hr 07/31/24 01:55 08/04/24 21:57 Fentanyl 2,500 Mcg/Ns 250 Ml IV CONT Not Given .Q0M RAISSA Protocol Propofol 100 mls @ 0 mls/hr 08/01/24 07:55 08/05/24 12:56 Diprivan IV CONT Not Given .Q0M RAISSA Protocol Insulin Aspart 3 - 6 units 07/31/24 06:00 08/09/24 12:06 Insulin Aspart (*Bkc) 100 Units/Ml SUB-Q Not Given Q6HR [facility] Protocol Lisinopril 10 mg 08/05/24 12:20 08/09/24 10:48 Lisinopril 10 Mg Tablet PO 10 mg DAILY RAISSA Administration Magnesium Hydroxide 30 ml 07/30/24 20:15 Magnesium Hydroxide Susp 30 Ml Udc FEED TUBE DAILY PRN Constipation Midazolam HCl 2 mg 07/30/24 20:27 07/30/24 21:14 Midazolam Hcl (*Crx) 2 Mg/2 Ml Vial IV PUSH 2 mg ONCE PRN Administration Agitation Multi-Ingred Cream/Lotion/Oil/Oint 1 applic 07/31/24 09:00 08/09/24 10:48 Mineral Oil/White Petrolatum Ointment EACH EYE 1 applic Q12HR RAISSA Administration Multi-Ingred Cream/Lotion/Oil/Oint 1 applic 08/05/24 01:47 08/05/24 06:51 Eucerin Cream 120 Gm Jar TOPICAL 1 applic PRN PRN Administration dry skin Pantoprazole Sodium 40 mg 07/31/24 09:00 08/09/24 10:48 Pantoprazole Sodium Iv 40 Mg Vial IV PUSH 40 mg DAILY RAISSA Administration Polyethylene Glycol 17 gm 08/06/24 09:00 08/09/24 11:20 Polyethylene Glycol 3350 17 Gm Powd.Pack PO 17 gm QAM RAISSA Administration Senna/Docusate Sodium 1 tab 08/02/24 21:00 08/08/24 21:03 Senna/Docusate Sodium Tablet PO 1 tab HS RAISSA Administration Sodium Chloride 10 ml 08/02/24 14:00 08/09/24 10:47 Central Line Flush IV PUSH 10 ml Q8HR RAISSA Administration Sodium Chloride 20 ml 08/02/24 09:06 Central Line Flush IV PUSH PRN PRN after blood draws Radiology Results: ITS Impressions Chest CTA 07/30/24 16:19 IMPRESSION: Right lung atelectasis including particularly upper and lower lobes; which may be due to malignant or radiation stricture of the right bronchial airways. Consider PET/CT correlation No pulmonary embolism Abdomen X-Ray 07/31/24 05:45 IMPRESSION: 1. Nonobstructive bowel gas pattern. Chest CT 08/04/24 11:39 IMPRESSION: 1. Mild groundglass opacities in the lower lobes, consistent with pneumonia. 2. 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 Persistent complete collapse of right middle lobe. 3. Tracheobronchomalacia. 4. Small pleural effusions. 5. Mild emphysema. Abdomen Ultrasound 08/05/24 12:19 IMPRESSION: 1. Cholelithiasis within the otherwise normal-appearing gallbladder. Venous Doppler Study 08/07/24 14:35 IMPRESSION: 1. No deep venous thrombosis. Chest X-Ray 08/09/24 07:19 IMPRESSION: 1. Opacities at the bilateral lower lung zones which could represent atelectasis or pneumonia along with a small right pleural effusion. 2. Volume loss in right hemithorax with paramediastinal/perihilar opacities consistent with radiation fibrosis and atelectasis likely for treatment of prior lung cancer. Labs Labs: Laboratory Results - last 24 hr 08/08/24 08/08/24 08/09/24 17:57 23:55 05:39 WBC RBC Hgb Hct MCV MCH MCHC RDW Plt Count MPV Immature Gran % (Auto) Neut % (Auto) Lymph % (Auto) Kings % (Auto) Eos % (Auto) Baso % (Auto) Lymph # (Auto) Kings # (Auto) Eos # (Auto) Baso # (Auto) Abs Immat Gran (auto) Absolute Neuts (auto) Absolute Nucleated RBC Nucleated RBC % Puncture Site Left radial ABG pH 7.424 ABG pCO2 44.8 ABG pO2 79.4 L ABG PO2/FiO2 Ratio 2.27 ABG HCO3 28.7 H ABG O2 Saturation 95.9 ABG O2 Content 18.1 ABG Base Excess 3.7 A-a Gradient 118.1 Oxyhemoglobin 95.0 Carboxyhemoglobin 1.1 Methemoglobin 0.1 Reduced Hemoglobin 3.8 Total Hemoglobin 13.5 O2 Delivery Device Ventilator O2 Liters/Min Not Reportable Minute Volume Not Reportable Vent Rate 16 Vent Mode Cmv FiO2 35 Tidal Volume 480 PEEP 5 Peak Inspir Pressure Not Reportable Pressure Support Not Reportable Sodium Potassium Chloride Carbon Dioxide Anion Gap BUN Creatinine Estim Creat Clear Calc Estimated GFR Glucose POC Capillary Glucose 130 H 121 H Calcium Phosphorus Magnesium Total Bilirubin AST ALT Alkaline Phosphatase Total Protein Albumin 08/09/24 08/09/24 05:50 12:05 WBC 12.1 H RBC 4.10 L Hgb 12.7 Hct 40.2 MCV 98.0 MCH 31.0 MCHC 31.6 L RDW 14.3 Plt Count 170 MPV 10.9 H Immature Gran % (Auto) 2.0 H Neut % (Auto) 81.1 H Lymph % (Auto) 9.6 L Kings % (Auto) 5.9 Eos % (Auto) 1.2 Baso % (Auto) 0.2 Lymph # (Auto) 1.17 Kings # (Auto) 0.7 H Eos # (Auto) 0.1 Baso # (Auto) 0.0 Abs Immat Gran (auto) 0.24 H Absolute Neuts (auto) 9.9 H Absolute Nucleated RBC 0.000 Nucleated RBC % 0.0 Puncture Site ABG pH ABG pCO2 ABG pO2 ABG PO2/FiO2 Ratio ABG HCO3 ABG O2 Saturation ABG O2 Content ABG Base Excess A-a Gradient Oxyhemoglobin Carboxyhemoglobin Methemoglobin Reduced Hemoglobin Total Hemoglobin O2 Delivery Device O2 Liters/Min Minute Volume Vent Rate Vent Mode FiO2 Tidal Volume PEEP Peak Inspir Pressure Pressure Support Sodium 137 Potassium 3.5 Chloride 103 Carbon Dioxide 34 H Anion Gap 0 L BUN 40 H Creatinine 0.70 Estim Creat Clear Calc 69 Estimated GFR > 60 Glucose 120 H POC Capillary Glucose 135 H Calcium 9.2 Phosphorus 3.7 Magnesium 2.1 Total Bilirubin 1.0 AST 33 ALT 93 H Alkaline Phosphatase 78 Total Protein 6.0 L Albumin 3.0 L Quality VTE Prophylaxis VTE prophylaxis: pharmacologic ordered
[2024-08-09 20:00] LABS: Glucose Point of Care 120 mg/dl (65-105)
[2024-08-09] MEDS: SENNA/DOCUSATE SODIUM TABLET 1 TAB PO (21:31)
[2024-08-09] MEDS: ATORVASTATIN 10 MG TABLET PO (21:31)
[2024-08-10] VITALS (24 sets, daily range): BP systolic 82–129; BP diastolic 50–69; PULSE 71–100; RESP 17–24; TEMP 36.8–37.8; O2SAT 93–98
[2024-08-10 00:36] LABS: Glucose Point of Care 139 mg/dl (65-105)
[2024-08-10] MEDS: IPRATROPIUM 0.5 MG/ALBUTEROL SULFATE 2.5 MG AMPUL.NEB 3 ML INHALATION ×3 (02:33→13:46)
[2024-08-10] MEDS: ACETYLCYSTEINE 20% INHAL SOLN 800 MG/4 ML VIAL 200 MG INHALATION ×3 (02:33→13:47)
[2024-08-10] MEDS: dexmedeTOMIDine 400 MCG/100 ML 400 MCG/100 ML BAG 5.47 MCG IV CONT (02:43)
[2024-08-10 05:18] LABS: Alveolar/Arterial O2 Gradient 109.4 mmHg; Base Excess ABG 1.1 mEq/l (+/-2.0); Carboxyhemoglobin 1.1 % THb (0-2.0); Fractional Inspired Oxygen 35 %; HCO3 ABG 25.6 mEq/l (22.0-26.0); Methemoglobin ABG 0.1 %THb (0-1.5); Oxygen Content ABG 17.2 %vol (16.0-22.0); Oxygen Saturation ABG 97.3 % (95.0-100.0); Oxyhemoglobin 96.4 % THb (90.0-100.0); PCO2 ABG 40.4 mmHg (35.0-45.0); PO2 ABG 93.2 mmHg (80.0-100.0); PO2 FiO2 Ratio Arterial Blood 2.66 %; Reduced Hemoglobin 2.4 %THb (0-5.0); Total Hemoglobin 12.6 g/dL (12.0-18.0)
[2024-08-10 05:20] LABS: Device VENTILATOR; Modified Allen's Test Pass; Site Drawn RIGHT RADIAL
[2024-08-10 05:21] LABS: Arterial Blood Gas PEEP 5 cmH2O; Arterial Blood Gas Tidal Volume 480 ml; Arterial Blood Gas Vent Mode CMV; Arterial Blood Gas Ventilator rate 16 /MIN
[2024-08-10] MEDS: CENTRAL LINE FLUSH 10 ML IV PUSH ×2 (05:34→14:26)
[2024-08-10 05:48] LABS: Basophils Percent Auto 0.2 % (0.2-1.2); Eosinophils Absolute Auto 0.1 K/mm3 (0-0.3); Hematocrit 39.7 % (37.0-47.0); Hemoglobin 12.4 g/dL (12.0-15.0); Immature Granulocyte Absolute 0.18 K/mm3 (0.00-0.031); Immature Granulocyte Percent A 1.4 % (0-0.5); Lymphocytes Absolute Auto 1.16 K/mm3 (0.9-3.2); Lymphocytes Percent Auto 9.2 % (18.3-44.2); Mean Corpuscular HGB Conc 31.2 g/dl (32-36); Mean Corpuscular Hemoglobin 30.7 pg (26-34); Mean Corpuscular Volume 98.3 fl (80-100); Monocytes Absolute Auto 0.7 K/mm3 (0.1-0.6); Monocytes Percent Auto 5.6 % (2.6-8.5); Neutrophils Absolute Auto 10.4 K/mm3 (1.3-6.7); Neutrophils Percent Auto 82.6 % (45.5-73.1); Platelet Count Result 187 k/mm3 (150-375); Red Blood Count 4.04 M/mm3 (4.2-5.4); Red Cell Distribution Width 14.4 % (11.5-14.5); White Blood Count 12.6 K/mm3 (4.5-10.0)
[2024-08-10 06:04] LABS: Alanine Aminotransferase 74 U/L (6-35); Albumin Level 3.1 g/dL (3.5-5.1); Alkaline Phosphatase 83 U/L (38-126); Anion Gap 0 mmol/L (4-12); Aspartate Amino Transferase 28 U/L (14-36); Bilirubin,Total 0.9 mg/dL (0.2-1.3); Blood Urea Nitrogen 55 mg/dL (7-17); Calcium 9.3 mg/dL (8.4-10.2); Carbon Dioxide 34 mmol/L (22-30); Chloride 103 mmol/L (98-107); Estimated CRCL calculation 67 ml/min; Estimated Glomerular Filt Rate > 60; Glucose 131 mg/dL (65-110); Magnesium 2.2 mg/dL (1.6-2.3); Phosphorus 3.3 mg/dL (2.5-4.5); Potassium 3.7 mmol/L (3.4-5.0); Sodium 137 mmol/L (137-145)
[2024-08-10] MEDS: ENOXAPARIN 40 MG/0.4 ML SYRINGE SUB-Q (09:08)
[2024-08-10] MEDS: PANTOPRAZOLE SODIUM IV 40 MG VIAL IV PUSH (09:09)
[2024-08-10] MEDS: polyethylene glycoL 3350 17 GM POWD.PACK PO (09:09)
--- NOTE | 2024-08-10 11:28 | PCFNICU ---
ICU Rounding Note: Pt current nutrition is Vital 1.2 @ goal rate 45 ml/h with Prosource TF supplement once per day. Giancarlo BID for wounds for 90 kcal and 2.5 g protein/each . Nutrition recommendation: No new nutrition recommendations. Last recorded weight is 104.9 kg. Bowel Motility: +1 BM 08/07/24 Labs Reviewed: Alb 3.1, BUN 55 Meds Noted: Sedation on hold for breathing trial. Protonix, lovenox Skin: Deep tissue injury to sacrum Additional Notes: Pt could be extubated after breathing trial today. Otherwise continue with same nutrition care plan. Awaiting bed for transfer to [facility] Following daily in ICU rounds. Will monitor weight, labs, skin, diet orders, meds every Wednesday and Wednesday. .
--- NOTE | 2024-08-10 11:31 | P.PNINT_ITS ---
Progress Note: A&P Assessment and Plan (1) Acute hypercapnic respiratory failure: Code(s): J96.02 - Acute respiratory failure with hypercapnia Status: Acute Assessment and Plan: 07/30: Patient presented with acute hypoxic and hypercarbic respiratory failure. 07/30: Failed trial of BiPAP in the ER and was intubated -currently on CMV mode of ventilation, peep of 5, 30% FiO2, wean O2 to maintain O2 sats > 90-92%, -no wheezing, continue to wean steroids to off -continue ceftriaxone (07/30), status post 5 days of azithromycin -discontinue vancomycin (08/03) -influenza, RSV, COVID negative -secretions have improved with Mucomyst and Pulmozyme -continue DuoNebs -08/03: Status post bronchoscopy, was also present in the room with Dr. Smith, director of accounts payable, right middle and lower lobe collapse noted, increased secretions, was able to get a BAL and sent for Gram stain and culture, still pending, preliminary AFB culture is negative -08/04: CT scan of chest as under, currently sedated with fentanyl and propofol infusion, have asked the bedside RN to start decreasing the propofol and fentanyl and place patient on Precedex infusion, will try SBT today 08/05: Patient responded well to diuresis, was placed on SBT, tolerated around 2 hours but had developed respiratory distress, tachycardic, tachypnea and was switched back to CMV mode of ventilation 08/06: Patient again responded well to diuresis and was in negative fluid balance. Was placed on pressure support ventilation 10/5 which was further decreased to 8/5. Tolerated well for around 2 hours and she was in respiratory distress with tachycardia, tachypnea so was placed back on the CMV mode 08/07: Patient sleepy this morning, did not tolerate PSV or ASV mode, will try again later in the more 08/08: Tolerated pressure support ventilation 10/5 for almost 6 hours, patient did got tight was placed back on CMV mode of ventilator 08/09/24: P patient tolerated pressure support ventilation 10/5. Patient diuresing well on her own, will hold diuretics today 08/10/24: Placed patient on pressure support ventilation 10/5, have asked the RT to decrease into 8/5, will try and see if I can extubate the patient since she has been tolerating pressure support ventilation. Right middle and lower lobe collapse likely causing issues with liberation from the ventilator, discussed with plate glass installer helper at [facility], patient was accepted, Interventional pulmonology will consult, accepting physician, Dr. Malika Glover. Patient will be transferred once bed is available 08/04: CT chest noncontrast IMPRESSION: 1. Mild groundglass opacities in the lower lobes, consistent with pneumonia. 2. 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 Persistent complete collapse of right middle lobe. 3. Tracheobronchomalacia. 4. Small pleural effusions. 5. Mild emphysema. (2) Acute exacerbation of chronic obstructive pulmonary disease: Code(s): J44.1 - Chronic obstructive pulmonary disease with (acute) exacerbation Status: Acute Assessment and Plan: Continue bronchodilators, currently on mechanical ventilation -status post steroids since patient had diffuse wheezing on admission (3) Pneumonia: Code(s): J18.9 - Pneumonia, unspecified organism Status: Acute Assessment and Plan: Continue antibiotics, bronchodilators -07/30: blood cultures are negative x2 -07/30: Urine cultures are negative -08/01: Sputum cultures no growth so far (4) Diabetes: Code(s): E11.9 - Type 2 diabetes mellitus without complications Status: Acute Assessment and Plan: Continue sliding scale insulin and Accu-Cheks -hemoglobin A1c 5.7 this admission (5) Elevated troponin: Code(s): R79.89 - Other specified abnormal findings of blood chemistry Status: Acute Assessment and Plan: Elevated troponin, trending down, likely related to type 2 infarct secondary severe hypoxia as patient was saturating 44% on room air upon arrival of the EMS at her house -there was no complains of chest pain -severely reduced right systolic function: appreciate cardiology evaluation and recommendations, -continue lisinopril -patient is diuresed well over the last several days, and continues to diurese on her own. Will could hold diuretic again today and evaluate 08/01: Echocardiogram Summary 1. Very technically difficult study with limited views. 2. The left ventricle grossly appears normal size and systolic function in the available and technically difficult views that were obtained in this study. 3. The right ventricle appears dilated with severely reduced systolic function in the available and technically difficult views that were obtained in this study. 4. Dilated inferior vena cava with <50% collapse upon inspiration consistent with significantly elevated right atrial pressure, 15 mmHg. (6) Electrolyte abnormality: Code(s): E87.8 - Other disorders of electrolyte and fluid balance, not elsewhere classified Status: Acute Assessment and Plan: Replace electrolytes as needed Plan DVT prophylaxis: Lovenox Stress ulcer prophylaxis: Protonix Nutrition: Tolerating tube feeds, continue Code Status: Full code Critical Care Time Spent: 32 minutes 08/10/2024: Discussed with patient's and updated with patient's condition plan of care. I answered all his questions 08/09/24: Discussed with family, updated with patient's condition and plan of care. They are aware that patient has been accepted to [facility] and will be transferred once they have bed available for the patient for interventional director of accounts payable to evaluate the patient from a right middle and lower lobe collapse which is hindering in her extubation. 08/06: Discussed with spouse and daughter in rounds and updated them with patient's condition and plan of care. They are aware that patient is failing her her breathing trials,, discussed with them regarding transferring the patient to [place] which she has had her treatment for her lung cancer and radiation, for evaluation by Interventional pulmonology for the collapse of her right middle and lower lobe. The and the daughter are agreeable. I called [facility] and patient has been accepted to the ICU, attending/accepted physician is Dr. Lopez. Due to a high probability of clinically significant, life threatening deterioration, the patient required my highest level of preparedness to intervene emergently and I personally spent this critical care time directly and personally managing the patient. This critical care time included obtaining a history; examining the patient; pulse oximetry; ordering and review of studies; arranging urgent treatment with development of a management plan; evaluation of patient's response to treatment; frequent reassessment; and discussions with other providers. It was exclusive of separately billable procedures and treating other patients and teaching time. Please see Assessment and Plan section and the rest of the note for further information on patient assessment and treatment This dictation may have been done utilizing a voice recognition system. Attempts have been made to correct errors. However, there may be uncorrected grammatical, spelling, and recognitions errors present. Subjective Date/time seen: 08/10/24 11:31 Interval history: Reason for consult: Hypercapnic respiratory failure requiring intubation in the ER after failing BiPAP, COPD exacerbation, pneumonia 07/30: Intubated 08/03: Bronchoscopy 08/10/2024: Patient seen examined the ICU this morning, remains intubated on CMV mode of ventilation, peep of 5, 35% FiO2. Overnight she had some gagging which was noted by the bedside RN, was started on Precedex infusion. Is awake, alert, nods to questions and follows simple commands in all extremities. Urine output has been good without diuretic, continues to have Negative fluid balance in the last 24 hours. Renal function is stable. Tolerating tube feeds. Hemodynamically stable and afebrile Review of Systems Review of Systems: ROS unobtainable: Yes unobtainable due to endotracheal tube, unobtainable due to medical condition and unobtainable due to mental status Exam Narrative: General: Intubated, is awake, in no acute distress HEENT:? Pupils equal and reactive, sclerae is care, ETT in place Neck:? Supple Respiratory:? Coarse breath sounds at bases bilaterally, right > left. No wheezing this morning, otherwise adequate air entry Cardiac:? S1-S2 normal, regular rate and rhythm Abdomen:? Soft, nontender, nondistended, obese, normoactive bowel sounds Extremities:? Edema has improved significantly, wrinkling of the skin noted on upper and lower extremities Neuro:? Patient is intubated, off sedation, follows simple commands in all extremities and nods to questions Skin:? No skin lesions noted Psych:? Unable to assess at this time Objective Data Vital Signs Vital Signs: Vital Signs - 24 hr 08/09/24 12:00 08/09/24 12:08/09/24 12:00 Temperature 98.5 F Pulse Rate 97 Respiratory Rate 25 H Blood Pressure 147/65 H Pulse Oximetry 96 Oxygen Delivery Mechanical Ventilation Fraction of Inspired Oxygen 35 35 08/09/24 12:00 08/09/24 14:00 08/09/24 14:00 Temperature Pulse Rate 98 91 91 Respiratory Rate 25 H Blood Pressure 122/63 Pulse Oximetry 97 Oxygen Delivery Fraction of Inspired Oxygen 08/09/24 14:05 08/09/24 14:05 08/09/24 14:14 Temperature Pulse Rate 91 91 92 Respiratory Rate 26 H 23 H Blood Pressure Pulse Oximetry 96 Oxygen Delivery Mechanical Ventilation Fraction of Inspired Oxygen 35 08/09/24 16:00 08/09/24 16:00 08/09/24 16:00 Temperature 98.5 F Pulse Rate 92 Respiratory Rate 26 H Blood Pressure 128/65 Pulse Oximetry 95 Oxygen Delivery Mechanical Ventilation Fraction of Inspired Oxygen 35 35 08/09/24 16:00 08/09/24 16:39 08/09/24 18:00 Temperature Pulse Rate 94 93 97 Respiratory Rate 26 H Blood Pressure 126/60 Pulse Oximetry 96 96 Oxygen Delivery Mechanical Ventilation Fraction of Inspired Oxygen 35 08/09/24 18:00 08/09/24 20:00 08/09/24 20:00 Temperature 100.1 F H Pulse Rate 102 H 97 Respiratory Rate 28 H Blood Pressure 140/58 L Pulse Oximetry 94 Oxygen Delivery Fraction of Inspired Oxygen 35 08/09/24 20:00 08/09/24 20:00 08/09/24 20:53 Temperature Pulse Rate 98 102 H Respiratory Rate Blood Pressure Pulse Oximetry 96 Oxygen Delivery Mechanical Ventilation Mechanical Ventilation Fraction of Inspired Oxygen 35 35 08/09/24 20:53 08/09/24 21:10 08/09/24 22:00 Temperature Pulse Rate 102 H 104 H 94 Respiratory Rate 20 20 Blood Pressure Pulse Oximetry Oxygen Delivery Fraction of Inspired Oxygen 08/09/24 22:00 08/09/24 23:57 08/10/24 00:00 Temperature Pulse Rate 95 93 Respiratory Rate 18 Blood Pressure 109/58 L Pulse Oximetry 95 95 Oxygen Delivery Mechanical Ventilation Fraction of Inspired Oxygen 35 35 08/10/24 00:00 08/10/24 00:00 08/10/24 00:00 Temperature 99.9 F H Pulse Rate 92 91 Respiratory Rate 18 Blood Pressure 108/56 L Pulse Oximetry 95 Oxygen Delivery Mechanical Ventilation Fraction of Inspired Oxygen 35 08/10/24 02:00 08/10/24 02:00 08/10/24 02:34 Temperature Pulse Rate 100 93 99 Respiratory Rate 21 H Blood Pressure 129/62 Pulse Oximetry 93 96 Oxygen Delivery Mechanical Ventilation Fraction of Inspired Oxygen 35 08/10/24 02:34 08/10/24 02:43 08/10/24 02:46 Temperature Pulse Rate 99 98 96 Respiratory Rate 24 H 19 20 Blood Pressure Pulse Oximetry Oxygen Delivery Fraction of Inspired Oxygen 08/10/24 04:00 08/10/24 04:00 08/10/24 04:00 Temperature Pulse Rate 89 Respiratory Rate 22 H Blood Pressure Pulse Oximetry Oxygen Delivery Mechanical Ventilation Fraction of Inspired Oxygen 35 35 08/10/24 04:00 08/10/24 04:00 08/10/24 05:10 Temperature 100.1 F H Pulse Rate 89 88 85 Respiratory Rate 20 Blood Pressure 89/53 L Pulse Oximetry 94 95 Oxygen Delivery Mechanical Ventilation Fraction of Inspired Oxygen 35 08/10/24 05:30 08/10/24 06:00 08/10/24 06:00 Temperature Pulse Rate 97 81 81 Respiratory Rate 22 H 20 Blood Pressure 94/50 L Pulse Oximetry 95 Oxygen Delivery Fraction of Inspired Oxygen 08/10/24 07:00 08/10/24 08:00 08/10/24 08:00 Temperature 98.5 F Pulse Rate 80 71 71 Respiratory Rate 18 21 H 17 Blood Pressure 82/51 L Pulse Oximetry 98 98 Oxygen Delivery Mechanical Ventilation Fraction of Inspired Oxygen 30 08/10/24 08:00 08/10/24 08:00 08/10/24 08:40 Temperature Pulse Rate 71 73 Respiratory Rate 19 Blood Pressure Pulse Oximetry Oxygen Delivery Fraction of Inspired Oxygen 30 08/10/24 08:45 08/10/24 08:48 08/10/24 10:00 Temperature 98.3 F Pulse Rate 76 77 87 Respiratory Rate 17 18 Blood Pressure 116/62 Pulse Oximetry 96 94 Oxygen Delivery Mechanical Ventilation Fraction of Inspired Oxygen 30 08/10/24 10:00 08/10/24 11:16 Temperature Pulse Rate 85 87 Respiratory Rate Blood Pressure Pulse Oximetry 94 Oxygen Delivery Mechanical Ventilation Fraction of Inspired Oxygen 30 Intake/Output Intake/Output: Intake & Output 08/07/24 08/08/24 08/09/24 08/10/24 23:59 23:59 23:59 23:59 Intake Total 1581 1444 1540 627.5 Output Total 2800 1750 2750 700 Balance -1219 -306 -1210 -72.5 Meds/Results Medications: Active Medications Generic Name Dose Route Start Last Admin Trade Name Freq PRN Reason Stop Dose Admin Acetaminophen 650 mg 08/05/24 23:28 08/06/24 08:47 Acetaminophen Elixir 325 Mg/10.15 Ml Udc PO 650 mg Q6H PRN Administration Mild Pain (1-3) or Fever Acetylcysteine 200 mg 08/01/24 08:00 08/10/24 08:39 Acetylcysteine 20% Inhal Soln 800 Mg/4 Ml Vial INHALATION 200 mg Q6HRT RAISSA Administration Albuterol/Ipratropium 3 ml 08/01/24 14:00 08/10/24 08:38 Ipratropium 0.5 Mg/Albuterol Sulfate 2.5 Mg Ampul.Neb 3 Ml INHALATION 3 ml Q6HRT RAISSA Administration Atorvastatin Calcium 10 mg 07/31/24 21:00 08/09/24 21:31 Atorvastatin 10 Mg Tablet PO 10 mg QHS RAISSA Administration Bisacodyl 10 mg 07/30/24 20:15 Bisacodyl 10 Mg Suppository RECTAL ONCE PRN Constipation Dextrose 12.5 gm 07/31/24 00:46 Dextrose 50% 25 Gm/50 Ml Syringe IV PUSH PRN PRN Hypoglycemia Protocol Enoxaparin Sodium 40 mg 07/31/24 09:00 08/10/24 09:08 Enoxaparin 40 Mg/0.4 Ml Syringe SUB-Q 40 mg DAILY RAISSA Administration Fluticasone/Umeclidinium/Vilanterol 1 puff 07/31/24 09:45 08/10/24 01:27 Fluticasone/Umeclidin/Vilanter 100-62.5-25 Mcg Ellipta INHALATION Not Given DAILYRT [facility] Glucagon 1 mg 07/31/24 00:46 Glucagon For Inj 1 Mg Vial IM PRN PRN Hypoglycemia Protocol Glucose 15 gm 07/31/24 00:46 Glucose Oral Gel 15 Gm Of Glucse In 37.5 Gm Tube PO PRN PRN Hypoglycemia Protocol Hydralazine HCl 10 mg 08/05/24 07:42 08/05/24 09:06 Hydralazine Hcl 20 Mg/Ml Vial IV PUSH 10 mg Q4H PRN Administration Blood Pressure - High Dextrose 1,000 mls @ 100 mls/hr 07/31/24 00:46 Dextrose 5% 1,000 Ml IVPB PRN PRN Hypoglycemia Protocol Fentanyl Citrate 2,500 mcg in 250 mls @ 0 mls/hr 07/31/24 01:55 08/04/24 21:57 Fentanyl 2,500 Mcg/Ns 250 Ml IV CONT Not Given .Q0M RAISSA Protocol Propofol 100 mls @ 0 mls/hr 08/01/24 07:55 08/05/24 12:56 Diprivan IV CONT Not Given .Q0M RAISSA Protocol Insulin Aspart 3 - 6 units 07/31/24 06:00 08/10/24 06:00 Insulin Aspart (*Bkc) 100 Units/Ml SUB-Q Not Given Q6HR [facility] Protocol Lisinopril 10 mg 08/05/24 12:20 08/09/24 10:48 Lisinopril 10 Mg Tablet PO 10 mg DAILY RAISSA Administration Magnesium Hydroxide 30 ml 07/30/24 20:15 Magnesium Hydroxide Susp 30 Ml Udc FEED TUBE DAILY PRN Constipation Multi-Ingred Cream/Lotion/Oil/Oint 1 applic 07/31/24 09:00 08/10/24 09:08 Mineral Oil/White Petrolatum Ointment EACH EYE Not Given Q12HR RAISSA Multi-Ingred Cream/Lotion/Oil/Oint 1 applic 08/05/24 01:47 08/05/24 06:51 Eucerin Cream 120 Gm Jar TOPICAL 1 applic PRN PRN Administration dry skin Pantoprazole Sodium 40 mg 07/31/24 09:00 08/10/24 09:09 Pantoprazole Sodium Iv 40 Mg Vial IV PUSH 40 mg DAILY RAISSA Administration Polyethylene Glycol 17 gm 08/06/24 09:00 08/10/24 09:09 Polyethylene Glycol 3350 17 Gm Powd.Pack PO 17 gm QAM RAISSA Administration Senna/Docusate Sodium 1 tab 08/02/24 21:00 08/09/24 21:31 Senna/Docusate Sodium Tablet PO 1 tab HS RAISSA Administration Sodium Chloride 10 ml 08/02/24 14:00 08/10/24 05:34 Central Line Flush IV PUSH 10 ml Q8HR RAISSA Administration Sodium Chloride 20 ml 08/02/24 09:06 Central Line Flush IV PUSH PRN PRN after blood draws Radiology Results: ITS Impressions Chest CTA 07/30/24 16:19 IMPRESSION: Right lung atelectasis including particularly upper and lower lobes; which may be due to malignant or radiation stricture of the right bronchial airways. Consider PET/CT correlation No pulmonary embolism Abdomen X-Ray 07/31/24 05:45 IMPRESSION: 1. Nonobstructive bowel gas pattern. Chest CT 08/04/24 11:39 IMPRESSION: 1. Mild groundglass opacities in the lower lobes, consistent with pneumonia. 2. 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 Persistent complete collapse of right middle lobe. 3. Tracheobronchomalacia. 4. Small pleural effusions. 5. Mild emphysema. Abdomen Ultrasound 08/05/24 12:19 IMPRESSION: 1. Cholelithiasis within the otherwise normal-appearing gallbladder. Venous Doppler Study 08/07/24 14:35 IMPRESSION: 1. No deep venous thrombosis. Chest X-Ray 08/10/24 06:29 Impression: No interval change. There is stable left basilar atelectasis or pneumonia. Stable prominence of the hilar regions. Correlate for pulmonary vascular structures versus lymphadenopathy. Stable support tubes. Labs Labs: Laboratory Results - last 24 hr 08/09/24 08/09/24 08/10/24 12:05 19:44 00:20 WBC RBC Hgb Hct MCV MCH MCHC RDW Plt Count MPV Immature Gran % (Auto) Neut % (Auto) Lymph % (Auto) Leake % (Auto) Eos % (Auto) Baso % (Auto) Lymph # (Auto) [place]ake # (Auto) Eos # (Auto) Baso # (Auto) Abs Immat Gran (auto) Absolute Neuts (auto) Absolute Nucleated RBC Nucleated RBC % Puncture Site ABG pH ABG pCO2 ABG pO2 ABG PO2/FiO2 Ratio ABG HCO3 ABG O2 Saturation ABG O2 Content ABG Base Excess A-a Gradient Oxyhemoglobin Carboxyhemoglobin Methemoglobin Reduced Hemoglobin Total Hemoglobin O2 Delivery Device O2 Liters/Min Minute Volume Vent Rate Vent Mode FiO2 Tidal Volume PEEP Peak Inspir Pressure Pressure Support Sodium Potassium Chloride Carbon Dioxide Anion Gap BUN Creatinine Estim Creat Clear Calc Estimated GFR Glucose POC Capillary Glucose 135 H 120 H 139 H Calcium Phosphorus Magnesium Total Bilirubin AST ALT Alkaline Phosphatase Total Protein Albumin 08/10/24 08/10/24 04:44 05:25 WBC 12.6 H RBC 4.04 L Hgb 12.4 Hct 39.7 MCV 98.3 MCH 30.7 MCHC 31.2 L RDW 14.4 Plt Count 187 MPV 11.0 H Immature Gran % (Auto) 1.4 H Neut % (Auto) 82.6 H Lymph % (Auto) 9.2 L Leake % (Auto) 5.6 Eos % (Auto) 1.0 Baso % (Auto) 0.2 Lymph # (Auto) 1.16 Leake # (Auto) 0.7 H Eos # (Auto) 0.1 Baso # (Auto) 0.0 Abs Immat Gran (auto) 0.18 H Absolute Neuts (auto) 10.4 H Absolute Nucleated RBC 0.000 Nucleated RBC % 0.0 Puncture Site Right radial ABG pH 7.420 ABG pCO2 40.4 ABG pO2 93.2 ABG PO2/FiO2 Ratio 2.66 ABG HCO3 25.6 ABG O2 Saturation 97.3 ABG O2 Content 17.2 ABG Base Excess 1.1 A-a Gradient 109.4 Oxyhemoglobin 96.4 Carboxyhemoglobin 1.1 Methemoglobin 0.1 Reduced Hemoglobin 2.4 Total Hemoglobin 12.6 O2 Delivery Device Ventilator O2 Liters/Min Not Reportable Minute Volume Not Reportable Vent Rate 16 Vent Mode Cmv FiO2 35 Tidal Volume 480 PEEP 5 Peak Inspir Pressure Not Reportable Pressure Support Not Reportable Sodium 137 Potassium 3.7 Chloride 103 Carbon Dioxide 34 H Anion Gap 0 L BUN 55 H D Creatinine 0.70 Estim Creat Clear Calc 67 Estimated GFR > 60 Glucose 131 H POC Capillary Glucose Calcium 9.3 Phosphorus 3.3 Magnesium 2.2 Total Bilirubin 0.9 AST 28 ALT 74 H Alkaline Phosphatase 83 Total Protein 6.0 L Albumin 3.1 L Quality VTE Prophylaxis VTE prophylaxis: pharmacologic ordered
[2024-08-10 11:51] LABS: Glucose Point of Care 124 mg/dl (65-105)
--- NOTE | 2024-08-10 17:50 | P.TS_ITS ---
Transfer Discharge Sum: Prov Provider Date of admission: 07/30/24 18:35 Primary care physician: Paula Robles APRN Admitting clinician: Lemuel Oliver MD Consults: 07/30/24 Consult to Physician Routine Comment: Consulting Provider: Chau Gresham Reason for consultation: Acute on chronic hypoxemic, hypercapnic respiratory failure Has provider been notified: Yes Consult to Physician Routine Comment: Consulting Provider: Chau Gresham Reason for consultation: COPD exacerbation requiring intubation Has provider been notified: Yes 07/31/24 00:48 Consult to Dietitian Routine Reason for Consult:: Tube feed orders 08/03/24 08:20 Consult to Physician Routine Comment: Spoke with provider 08/03 @ 1059 Consulting Provider: Olga Smith reservation manager/MD group to consult: Pulmonology Reason for consultation: COPD, Pneumonia, Bronchoscopy Has provider been notified: Yes 08/03/24 08:59 Consult to Physician Routine Comment: Spoke with provider 08/03 @ 0999 Consulting Provider: Clarence Alvarez reservation manager/MD group to consult: Cardiology Reason for consultation: Right heart failure on echocardiogram Has provider been notified: Yes 08/07/24 Wound/ET Consult Routine Reason for Consult:: Right heel injury DS: Admitting Diagnosis Discharge Date 08/10/24 Admitting Diagnosis Acute respiratory distress DS: Discharge Diagnosis Discharge Diagnosis (1) Acute hypercapnic respiratory failure: Code(s): J96.02 - Acute respiratory failure with hypercapnia Status: Acute (2) Acute exacerbation of chronic obstructive pulmonary disease: Code(s): J44.1 - Chronic obstructive pulmonary disease with (acute) exacerbation Status: Acute (3) Pneumonia: Code(s): J18.9 - Pneumonia, unspecified organism Status: Acute (4) Diabetes: Code(s): E11.9 - Type 2 diabetes mellitus without complications Status: Acute (5) Elevated troponin: Code(s): R79.89 - Other specified abnormal findings of blood chemistry Status: Acute (6) Electrolyte abnormality: Code(s): E87.8 - Other disorders of electrolyte and fluid balance, not elsewhere classified Status: Acute Transfer Discharge Sum: Med Medications Active and Home Medications: Home Medications atorvastatin 10 mg tablet 10 mg PO DAILY 05/12/23 [History Confirmed 07/30/24] potassium chloride 10 mEq capsule,extended release 10 meq PO DAILY 05/12/23 [History Confirmed 07/30/24] albuterol sulfate 2.5 mg/3 mL (0.083 %) solution for nebulization 2.5 mg inhalation Q4H PRN Shortness Of Breath Or Wheezing 07/04/23 [History Confirmed 07/30/24] fluticasone fur. 100 mcg-umeclid 62.5 mcg-vilant 25 mcg inhalat.powder (Trelegy Ellipta) 1 inh inhalation DAILY 07/04/23 [History Confirmed 07/31/24] furosemide 40 mg tablet 40 mg PO DAILY 07/04/23 [History Confirmed 07/31/24] loratadine 10 mg tablet 10 mg PO DAILY 07/04/23 [History Confirmed 07/31/24] montelukast 10 mg tablet 10 mg PO DAILY 07/04/23 [History Confirmed 07/31/24] mirabegron 50 mg tablet,extended release 24 hr (Myrbetriq) 50 mg PO DAILY 07/31/24 [History Confirmed 07/31/24] simvastatin 20 mg tablet 20 mg PO QPM 08/03/24 [History Confirmed 08/03/24] Active Medications Acetaminophen (Acetaminophen Elixir 325 Mg/10.15 Ml Udc) 650 mg PO Q6H PRN PRN Reason: Mild Pain (1-3) or Fever Last Admin: 08/06/24 08:47 Dose: 650 mg Acetylcysteine (Acetylcysteine 20% Inhal Soln 800 Mg/4 Ml Vial) 200 mg INHALATION Q6HRT [facility] Last Admin: 08/10/24 13:47 Dose: 200 mg Albuterol/Ipratropium (Ipratropium 0.5 Mg/Albuterol Sulfate 2.5 Mg Ampul.Neb 3 Ml) 3 ml INHALATION Q6HRT [facility] Last Admin: 08/10/24 13:46 Dose: 3 ml Atorvastatin Calcium (Atorvastatin 10 Mg Tablet) 10 mg PO QHS [facility] Last Admin: 08/09/24 21:31 Dose: 10 mg Bisacodyl (Bisacodyl 10 Mg Suppository) 10 mg RECTAL ONCE PRN PRN Reason: Constipation Dextrose (Dextrose 50% 25 Gm/50 Ml Syringe) 12.5 gm IV PUSH PRN PRN; Protocol PRN Reason: Hypoglycemia Enoxaparin Sodium (Enoxaparin 40 Mg/0.4 Ml Syringe) 40 mg SUB-Q DAILY [facility] Last Admin: 08/10/24 09:08 Dose: 40 mg Fluticasone/Umeclidinium/Vilanterol (Fluticasone/Umeclidin/Vilanter 100-62.5-25 Mcg Ellipta) 1 puff INHALATION DAILYRT [facility] Last Admin: 08/10/24 13:46 Dose: Not Given Glucagon (Glucagon For Inj 1 Mg Vial) 1 mg IM PRN PRN; Protocol PRN Reason: Hypoglycemia Glucose (Glucose Oral Gel 15 Gm Of Glucse In 37.5 Gm Tube) 15 gm PO PRN PRN; Protocol PRN Reason: Hypoglycemia Hydralazine HCl (Hydralazine Hcl 20 Mg/Ml Vial) 10 mg IV PUSH Q4H PRN PRN Reason: Blood Pressure - High Last Admin: 08/05/24 09:06 Dose: 10 mg Dextrose (Dextrose 5% 1,000 Ml) 1,000 mls @ 100 mls/hr IVPB PRN PRN; Protocol PRN Reason: Hypoglycemia Insulin Aspart (Insulin Aspart (*Bkc) 100 Units/Ml) 3 - 6 units SUB-Q Q6HR [facility]; Protocol Last Admin: 08/10/24 13:37 Dose: Not Given Lisinopril (Lisinopril 10 Mg Tablet) 10 mg PO DAILY [facility] Last Admin: 08/10/24 13:37 Dose: Not Given Magnesium Hydroxide (Magnesium Hydroxide Susp 30 Ml Udc) 30 ml FEED TUBE DAILY PRN PRN Reason: Constipation Multi-Ingred Cream/Lotion/Oil/Oint (Mineral Oil/White Petrolatum Ointment) 1 applic EACH EYE Q12HR [facility] Last Admin: 08/10/24 09:08 Dose: Not Given Multi-Ingred Cream/Lotion/Oil/Oint (Eucerin Cream 120 Gm Jar) 1 applic TOPICAL PRN PRN PRN Reason: dry skin Last Admin: 08/05/24 06:51 Dose: 1 applic Pantoprazole Sodium (Pantoprazole Sodium Iv 40 Mg Vial) 40 mg IV PUSH DAILY [facility] Last Admin: 08/10/24 09:09 Dose: 40 mg Polyethylene Glycol (Polyethylene Glycol 3350 17 Gm Powd.Pack) 17 gm PO QAM [facility] Last Admin: 08/10/24 09:09 Dose: 17 gm Senna/Docusate Sodium (Senna/Docusate Sodium Tablet) 1 tab PO HS [facility] Last Admin: 08/09/24 21:31 Dose: 1 tab Sodium Chloride (Central Line Flush) 10 ml IV PUSH Q8HR [facility] Last Admin: 08/10/24 14:26 Dose: 10 ml Sodium Chloride (Central Line Flush) 20 ml IV PUSH PRN PRN PRN Reason: after blood draws Transfer Discharge Sum: Hosp Hospital Course Hospital course: Gaby Morgan is a 74 year old female with hx of HTN and HLD who contacted EMS for SOB and was found to be in acute respiratory failure. Please see H&P for details. The following issues were addressed: (1) Acute hypercapnic respiratory failure: Patient presented with acute hypoxic and hypercarbic respiratory failure. She failed trial of BiPAP in the ER and was intubated. CTA chest negative for PE but showed right lung atelectasis including particularly upper and lower lobes; which may be due to malignant or radiation stricture of the right bronchial airways. Started on ceftriaxone and azithromycin. She has completed 5 days of azithromycin. Vancomycin started and discontinued on 08/03. Influenza, RSV, COVID negative. BCx negative. Urine culture negative. Sputum culture negative. Secretions have improved with Mucomyst and Pulmozyme. Also treated DuoNebs. Pulmonary consulted and patient underwent bronchoscopy on 08/03 and noted right middle and lower lobe collapse. BAL was sent for Gram stain and culture. Preliminary AFB culture is negative. Repeat CT scan of chest showing mild groun dglass opacities in the lower lobes, consistent with pneumonia, airspace opacities in right upper lobe with volume loss and varicose bronchiectasis, likely radiation pneumonitis, persistent complete collapse of right middle lobe and tracheobronchomalacia. Patient responded well to diuresis. Right middle and lower lobe collapse likely causing issues with liberation from the ventilator. Import Export Clerk discussed with wet pan mixer at [facility] and patient was accepted. Patient was transferred in critical but stable condition (2) Acute exacerbation of chronic obstructive pulmonary disease: Treated with bronchodilators. She remains on mechanical ventilation. Status post steroids since patient had diffuse wheezing on admission (3) Pneumonia: As above (4) Diabetes: A1c 5.7%. Monitored closely with sliding scale insulin and Accu-Cheks (5) Elevated troponin: Troponin elevated to 0.26 likely related to type 2 infarct secondary severe hypoxia as patient was saturating 44% on room air upon arrival of EMS at her house. EKG showing sinus tachy or AFlutter (rate 128) with PVCs, Rt BBB, moderate T wave changes. Very technically difficult Echo showing LV grossly appears normal size and systolic function, RV appears dilated with severely reduced systolic fxn with dilated inferior vena cava with <50% collapse upon inspiration consistent with significantly elevated right atrial pressure, 15 mmHg. Patient was transferred to outside facility on 08/10/24 in stable but critical condition. Time Spent with Patient Time attestation: Total time spent providing and/or coordinating transfer services: 32 minuets Total time spent: Greater than 30 minutes Exam Narrative: Tm 100.1 98.3 122/69 90 20 95% ra Gen - intubated HEENT - ETT and OGT secured Neck - Rt IJ TLC in place. Chest - coarse BS with inspiratory rhonchi anteriorly. CV - RRR S1/S2. tele showing PVCs and bigeminy Abd - Soft, NT/ND, Positive BS, umbilical reducible hernia - Torres secured draining clear yellow urine Ext - No pedal edema. Feet are cool. 2+ DP bilaterally Neuro - awake and alert. Follows commands Skin - Warm and dry DS: Data Data Completed and Pending Labs on day of discharge: Labs from last 24 hours 08/10/24 08/10/24 08/10/24 11:44 05:25 04:44 WBC 12.6 H RBC 4.04 L Hgb 12.4 Hct 39.7 MCV 98.3 MCH 30.7 MCHC 31.2 L RDW 14.4 Plt Count 187 MPV 11.0 H Immature Gran % (Auto) 1.4 H Neut % (Auto) 82.6 H Lymph % (Auto) 9.2 L [place] % (Auto) 5.6 Eos % (Auto) 1.0 Baso % (Auto) 0.2 Lymph # (Auto) 1.16 [place] # (Auto) 0.7 H Eos # (Auto) 0.1 Baso # (Auto) 0.0 Abs Immat Gran (auto) 0.18 H Absolute Neuts (auto) 10.4 H Absolute Nucleated RBC 0.000 Nucleated RBC % 0.0 Puncture Site Right radial ABG pH 7.420 ABG pCO2 40.4 ABG pO2 93.2 ABG PO2/FiO2 Ratio 2.66 ABG HCO3 25.6 ABG O2 Saturation 97.3 ABG O2 Content 17.2 ABG Base Excess 1.1 A-a Gradient 109.4 Oxyhemoglobin 96.4 Carboxyhemoglobin 1.1 Methemoglobin 0.1 Reduced Hemoglobin 2.4 Total Hemoglobin 12.6 O2 Delivery Device Ventilator O2 Liters/Min Not Reportable Minute Volume Not Reportable Vent Rate 16 Vent Mode Cmv FiO2 35 Tidal Volume 480 PEEP 5 Peak Inspir Pressure Not Reportable Pressure Support Not Reportable Sodium 137 Potassium 3.7 Chloride 103 Carbon Dioxide 34 H Anion Gap 0 L BUN 55 H D Creatinine 0.70 Estim Creat Clear Calc 67 Estimated GFR > 60 Glucose 131 H POC Capillary Glucose 124 H Calcium 9.3 Phosphorus 3.3 Magnesium 2.2 Total Bilirubin 0.9 AST 28 ALT 74 H Alkaline Phosphatase 83 Total Protein 6.0 L Albumin 3.1 L 08/10/24 08/09/24 00:20 19:44 WBC RBC Hgb Hct MCV MCH MCHC RDW Plt Count MPV Immature Gran % (Auto) Neut % (Auto) Lymph % (Auto) [place] % (Auto) Eos % (Auto) Baso % (Auto) Lymph # (Auto) [place] # (Auto) Eos # (Auto) Baso # (Auto) Abs Immat Gran (auto) Absolute Neuts (auto) Absolute Nucleated RBC Nucleated RBC % Puncture Site ABG pH ABG pCO2 ABG pO2 ABG PO2/FiO2 Ratio ABG HCO3 ABG O2 Saturation ABG O2 Content ABG Base Excess A-a Gradient Oxyhemoglobin Carboxyhemoglobin Methemoglobin Reduced Hemoglobin Total Hemoglobin O2 Delivery Device O2 Liters/Min Minute Volume Vent Rate Vent Mode FiO2 Tidal Volume PEEP Peak Inspir Pressure Pressure Support Sodium Potassium Chloride Carbon Dioxide Anion Gap BUN Creatinine Estim Creat Clear Calc Estimated GFR Glucose POC Capillary Glucose 139 H 120 H Calcium Phosphorus Magnesium Total Bilirubin AST ALT Alkaline Phosphatase Total Protein Albumin Preliminary micro results at discharge 08/03/24 15:21 Acid Fast Bacilli Culture - Preliminary Bronchial Washings Subcarinal
--- NOTE | 2024-08-10 18:13 | PC.NURSE ---
[facility] called to say they would be at hospital to transfer patient to [facility]. Daughter Magda called and notified of acceptance for transfer.
--- NOTE | 2024-08-10 18:53 | PC.NURSE ---
[facility] here. Report given to EMT. All questions answered.
== END 2024-08-10 19:15 | disposition short-term general hospital (02) | DRG 207 ==
LOC: ANHED 21:50 → ANHICU 23:02
PROVIDERS: Internal Medicine; Internal Medicine Critical Care Medicine; Nurse Practitioner Gerontology; Admitting Provider General Practice; Emergency Provider Student in an Organized Health Care Education/Training Program; PCP Nurse Practitioner Family; Visit Provider Internal Medicine
DX: J96.02 Acute respiratory failure with hypercapnia (principal); J18.9 Pneumonia, unspecified organism; I21.A1 Myocardial infarction type 2; J44.1 Chronic obstructive pulmonary disease with (acute) exacerbation; J44.0 Chronic obstructive pulmonary disease with (acute) lower respiratory infection; J70.0 Acute pulmonary manifestations due to radiation; J98.11 Atelectasis; J96.01 Acute respiratory failure with hypoxia; J98.09 Other diseases of bronchus, not elsewhere classified; E78.5 Hyperlipidemia, unspecified; D72.829 Elevated white blood cell count, unspecified; E11.9 Type 2 diabetes mellitus without complications; I50.9 Heart failure, unspecified; E86.0 Dehydration; E87.8 Other disorders of electrolyte and fluid balance, not elsewhere classified; Z85.118 Personal history of other malignant neoplasm of bronchus and lung
CPT/HCPCS: 36415; 36600; 71045; 71250; 71275; 74018; 76705; 80053; 80074; 80202; 81001; 82375; 82803; 82805; 82948; 83036; 83050; 83605; 83735; 83880; 84100; 84478; 84484; 85018; 85025; 85610; 85730; 86140; 87015; 87040; 87070; 87086; 87102; 87116; 87205; 87206; 87279; 87637; 87641; 93005; 93970; 94002; 94003; 94640; 96365; 96366; 96367; 96372; 96375; 99285; A9270; C1751; C8929; J0171; J0360; J0456; J0696; J1120; J1650; J1815; J1939; J1940; J2003; J2250; J2470; J2704; J2919; J3010; J3370; J3475; J3480; J7120; J7639; Q9957; Q9967

== ENCOUNTER → 2024-11-30 15:03 | Outpatient (CLI) | payer MEDICARE, BC, SELFPAY ==
--- NOTE | ~2024-11-30 | XR_ITS ---
XR chest 2V Ordering provider: Katlin Martinez, RHEUMATOLOGIST History: 74 years Female with . ACUTE EXACERBATION OF COPD . Comparison: None. FINDINGS: MEDIASTINUM: The cardiac silhouette is slightly enlarged. Prominent both toyin. LUNGS: No effusions or pneumothorax. Infiltrate is seen in the left upper and lower lobe. Emphysemato us changes in the right lung are noted. OTHER: No free air under the diaphragm. IMPRESSION: Left upper and lower lobe infiltrate suggestive of pneumonia. Underlying pulmonary edema is not exclu ded. Reviewed, dictated and finalized at location A. IMPRESSION: Left upper and lower lobe infiltrate suggestive of pneumonia. Underlying pulmon lucio edema is not excluded.
== END ==
LOC: EXPCRAD 15:10
DX: J44.1 Chronic obstructive pulmonary disease with (acute) exacerbation (principal); J18.9 Pneumonia, unspecified organism
CPT/HCPCS: 71046

== ENCOUNTER → 2024-12-08 11:58 | Outpatient (CLI) | payer MEDICARE, BC, SELFPAY ==
--- NOTE | ~2024-12-08 | XR_ITS ---
Clinical Indication: Pneumonia PA and lateral views of the chest: Comparison: 11/30/2024 Findings: Large right perihilar masslike lesion measuring 6.1 x 5 cm is again present. No other pulmo nary abnormality evident. Cardiomediastinal silhouette is within normal limits. Bones and soft tissue s are unremarkable. Impression: Large right perihilar mass is stable from most recent prior exam, probably increased since August. C hest CT with contrast recommended to further assess. Reviewed, dictated and finalized at location M. Impression: Large right perihilar mass is stable from most recent prior exam, probably incr eased since August. Chest CT with contrast recommended to further assess.
== END ==
DX: J18.9 Pneumonia, unspecified organism (principal)
CPT/HCPCS: 71046